=== PATIENT | male | born 1945 | race Caucasian/White ===

== ENCOUNTER 2017-08-03 19:23 | Emergency (ER) | payer OTHER ==
[~2017-08-03] VITALS: Ht 172.7 cm; Wt 78.8 kg
[~2017-08-03 19:23] MED LIST: CYAN10005 PO; DXY100 PO; FLM4 PO; GABA-113 PO; PRED-301 PO; SPIR25TA PO; VTMD PO
[2017-08-03 19:29] VITALS: BP 138/71; PULSE 98; TEMP 37.7; O2SAT 97; Ht 172.7 cm; Wt 78.8 kg
[2017-08-03] MEDS ORDERED: DOXYCYCLINE HYCLATE 100 MG CAP PO STA (19:59)
[2017-08-03] MEDS ORDERED: DOXY100C76 PO (20:03)
--- NOTE | 2017-08-03 20:14 | EMERGENCY ROOM VISIT NOTE ---
History Report prepared by Elias: Anuja Hassan Under the Supervision of: Dr. Gideon Alatorre M.D. First contact with patient: 19:49 Chief Complaint: OTHER COMPLAINT Stated Complaint: LYME DISEASE History of Present Illness The patient is a 72 year old male who presents to the Emergency Room with complaints of persistent fever starting last night. He has a history of lyme disease earlier this year. Last night, his removed a tick off his back. He has been having fever and intermittent diaphoresis and chills. He strongly suspects that this is lyme disease. He denies any rash or abdominal pain. Source of History: patient Onset: last night Position: other (global) Quality: other (fever) Timing: other (persistent) Associated Symptoms: + chills, + diaphoresis, No abdominal pain, No rash Review of Systems See HPI for pertinent positives & negatives. A total of 10 systems reviewed and were otherwise negative. Past Medical & Surgical Medical Problems: (1) Acute urinary retention (2) Rheumatoid arthritis Family History Heart disease Myocardial infarction Social History Smoking Status: Former Smoker Drug Use: none Marital Status: Housing Status: lives with family Occupation Status: retired Current/Historical Medications Scheduled Doxycycline Monohydrate (Monodox), 100 MG PO BID Ergocalciferol (Vitamin D 45719 Unit), 50,000 UNIT PO 2XWK Gabapentin (Neurontin), 600 MG PO DAILY Prednisone (Prednisone), 5 MG PO DAILY Spironolactone (Aldactone), 25 MG PO DAILY Allergies Coded Allergies: No Known Allergies (Verified , 03/25/16) Uncoded Allergies: LATEX-N (Adverse Reaction, Unknown, 01/08/03) Physical Exam Vital Signs Date Time Temp Pulse Resp B/P (MAP) Pulse Ox O2 Delivery O2 Flow Rate FiO2 08/03/17 19:29 37.7 98 20 138/71 97 Room Air Physical Exam GENERAL: Patient is a healthy-appearing well-nourished male HEAD: Normocephalic atraumatic EYES: Ocular movements intact pupils equal and react to light OROPHARYNX mucous membranes are moist no exudates present no erythema or edema present NECK: Supple no nuchal rigidity no evidence of meningitis or encephalitis on exam CHEST: Good equal expansion LUNGS: Clear and equal to auscultation CARDIAC: Normal S1 and S2 ABDOMEN: Soft nontender no guarding BACK: No CVA tenderness EXTREMITIES: No pain upon palpation normal muscle strength in all groups no clubbing cyanosis or edema NEURO: Patient is following commands and answering questions appropriately. Alert and oriented x3 Cranial Nerves 2-12 grossly intact Medical Decision & Procedures Laboratory Results Test 08/03/17 20:10 Lyme Disease IgG Antibody NEG (NEG) Labs reviewed by ED physician. Medications Administered Medications (Trade) Dose Ordered Sig/Mike Route Start Time Stop Time Status Last Admin Dose Admin Doxycycline Hyclate (Vibramycin Cap) 100 mg ONE STAT PO 08/03/17 19:59 08/03/17 20:01 DC 08/03/17 20:07 100 MG ED Course 1953: Past medical records reviewed. The patient was evaluated in room C4. A complete history and physical examination was performed. I discussed results and treatment plan with the patient. He verbalizes agreement and understanding. The patient is ready for discharge. 1958: Doxycycline Hyclate 100 mg PO. Medical Decision Differential diagnosis: Etiologies such as viral syndrome, otitis, pharyngitis, pneumonia, influenza, meningitis, urinary tract infection, sepsis, bacteremia, as well as others were entertained. This is a 72-year-old male who presents emergency department complaining of fever. The patient is convinced he has Lyme disease after a tick was pulled off him yesterday. I recommended to the patient that he receive laboratory work however the patient is adamantly refusing. He is asking for a blood test for Lyme disease and placed on the antibiotic for. I stressed the need to return to the emergency department the patient felt weak or was not improving. I stressed the need for follow-up with the patient's primary care physician. Patient was in agreement with the treatment plan. Medication Reconcilliation Current Medication List: was personally reviewed by me Blood Pressure Screening Patient's blood pressure: Normal blood pressure Blood pressure disposition: Did not require urgent referral Impression Primary Impression: Tick bite of back Additional Impression: Fever Scribe Attestation The scribe's documentation has been prepared under my direction and personally reviewed by me in its entirety. I confirm that the note above accurately reflects all work, treatment, procedures, and medical decision making performed by me. Departure Information Dispostion Home / Self-Care Prescriptions Doxycycline Monohydrate (Monodox) 100 Mg Cap 100 MG PO BID for 14 Days, #28 CAP Prov: Gideon Alatorre MD 08/03/17 Referrals No Doctor, Assigned (PCP) Forms HOME CARE DOCUMENTATION FORM, IMPORTANT VISIT INFORMATION, WORK / SCHOOL INSTRUCTIONS Patient Instructions My [facility] Additional Instructions Follow up with Dr Patel's office Take 600 mg Ibuprofen every 6 hours Take 1000 mg Tylenol every 6 hours You have been examined and treated today on an emergency basis only. This is not a substitute for, or an effort to provide, complete comprehensive medical care. It is impossible to recognize and treat all injuries or illnesses in a single emergency department visit. It is therefore important that you follow up closely with your PCP. Call as soon as possible for an appointment. Thank you for your time and consideration. I look forward to speaking with you again soon. Please don't hesitate to call us if you have any questions. Problem Qualifiers Primary Impression: Tick bite of back Encounter type: initial encounter Qualified Codes: S30.860A - Insect bite ( nonvenomous) of lower back and pelvis, initial encounter; W57.XXXA - Bitten or stung by nonvenomous insect and other nonvenomous arthropods, initial encounter Additional Impression: Fever Fever type: unspecified Qualified Codes: R50.9 - Fever, unspecified
[2017-08-03] MEDS ORDERED: ERGO500037 PO (20:25)
[2017-08-03 21:20] LABS: LYME DISEASE AB IGG NEG (NEG)
[2017-08-03 21:26] LABS: LYME DISEASE AB IGM EQUIVOCAL (NEG)
[2017-08-09 09:49] LABS: 18KDIGG BAND NONREACTIVE (NONREACTIVE); 23KDIGG BAND NONREACTIVE (NONREACTIVE); 23KDIGM BAND REACTIVE (NONREACTIVE); 28KDIGG BAND REACTIVE (NONREACTIVE); 30KDIGG BAND NONREACTIVE (NONREACTIVE); 39KDIGG BAND NONREACTIVE (NONREACTIVE); 39KDIGM BAND NONREACTIVE (NONREACTIVE); 41KDIGG BAND REACTIVE (NONREACTIVE); 41KDIGM BAND NONREACTIVE (NONREACTIVE); 45KDIGG BAND NONREACTIVE (NONREACTIVE); 58KDIGG BAND REACTIVE (NONREACTIVE); 66KDIGG BAND REACTIVE (NONREACTIVE); 93KDIGG BAND NONREACTIVE (NONREACTIVE)
== END 2017-08-03 21:00 | disposition home or self-care (01) ==
LOC: C.EDB 19:24 → C.EDC 21:00
DX: R50.9 Fever, unspecified (principal); S30.860A Insect bite (nonvenomous) of lower back and pelvis, initial encounter; W57.XXXA Bitten or stung by nonvenomous insect and other nonvenomous arthropods, initial encounter; Y92.9 Unspecified place or not applicable; M06.9 Rheumatoid arthritis, unspecified; Z86.19 Personal history of other infectious and parasitic diseases; Z82.49 Family history of ischemic heart disease and other diseases of the circulatory system; Z87.891 Personal history of nicotine dependence; Z79.52 Long term (current) use of systemic steroids; Z79.899 Other long term (current) drug therapy

== ENCOUNTER 2022-12-30 18:57 | Inpatient (IN) ==
--- NOTE | 2022-12-30 20:26 | XRay Report ---
SINGLE VIEW CHEST CLINICAL HISTORY: Atypical chest pain. Cough and dyspnea FINDINGS: An AP, portable, upright chest radiograph is compared to study dated 09/04/2021 and correla erik with chest CT dated 03/25/2016. The heart is enlarged note atherosclerotic calcification of the th oracic aorta. The pulmonary vasculature is noncongested. Pericardial calcification is similar to prev ious. Chronic interstitial thickening is unchanged. There is bibasilar scarring/atelectasis. There ar e patchy airspace opacities in the right upper lobe and in the left mid to lower lung. Suspect trace pleural effusions. No pneumothorax is seen. The skeletal structures are osteopenic. There is chronic deformity of the right-sided ribs. IMPRESSION: 1. Cardiomegaly without radiographic evidence of congestive failure. 2. There are patchy airspace opacities in the right upper lobe and in the left mid to lower lung. Cor relate clinically for evidence of pneumonia/aspiration pneumonitis. Radiographic follow-up to resolut ion is recommended. 3. Question small pleural effusions. ACT 112: Negative or not required by law. Electronically signed by: Sheng Mckoy M.D. 12/30/2022 8:25 PM
[2022-12-30 20:45] LABS: Basophils # (auto) 0.03 K/uL (0-0.2); Basophils % (auto) 0.2 %; Eosinophils # (auto) 0.01 K/uL (0-0.50); Eosinophils % (auto) 0.1 %; Hematocrit (blood only) 32.2 % (42.0-52.0); Hemoglobin 11.1 g/dl (14.0-18.0); Immature Granulocytes # (auto) 0.15 K/uL (0.01-0.20); Lymphocytes # (auto) 0.94 K/uL (1.2-3.4); Mean Corpuscular Hemoglobin 35.5 pg (25.0-34.0); Mean Corpuscular Hgb Conc 34.5 g/dL (32.0-36.0); Mean Corpuscular Volume 102.9 fL (80.0-100.0); Mean Platelet Volume 11.2 fL (9.4-12.4); Monocytes # (auto) 1.23 K/uL (0.11-0.59); Monocytes % (auto) 7.8 %; Neutrophils # (auto) 13.31 K/uL (1.40-6.50); Neutrophils % (auto) 84.9 %; Platelet Count 269 K/uL (130-400); RDW Coefficient of Variation 14.6 % (11.5-14.5); RDW Standard Deviation 54.9 fL (36.4-46.3); Red Blood Count 3.13 M/uL (4.70-6.10); White Blood Count 15.67 K/ul (4.8-10.8)
[2022-12-30 21:07] LABS: Albumin Globulin Ratio 1.2 (0.9-2); Albumin Level 3.6 gm/dl (3.4-5.0); BUN Creatinine Ratio 22.9 (10-20); Bilirubin,Total 1.4 mg/dl (0.2-1.0); Est GFR (African American) 77.9 ml/min; Est GFR (Non-African American) 67.2 ml/min; Potassium 4.3 mmol/L (3.5-5.1); Total Protein 6.6 gm/dl (6.0-8.3)
[2022-12-30 21:12] LABS: Troponin I High Sensitivity 10.5 pg/ml (0-20)
[2022-12-30 21:18] LABS: Influenza A virus by PCR Negative (Neg); Influenza B virus by PCR Negative (Neg); RSV by PCR Negative (Neg); SARS CoV2 RNA(COVID-19) Ceph NEGATIVE (Negative)
[2022-12-30 21:21] LABS: INR 1.4 (0.9-1.1); Partial Thromboplastin Ratio 1.4; Partial Thromboplastin Time 39.6 Seconds (21.0-31.0); Prothrombin Time 14.6 Seconds (9.0-12.0)
[2022-12-30] MEDS ORDERED: SODIUM CHLORIDE 0.9% 1000ML 1,000 ML IV STA (23:17)
[2022-12-30] MEDS ORDERED: PIPERACILLIN/TAZOBACTAM 4.5 GM/120 ML BAG IV ONE (23:17)
[2022-12-30] MEDS ORDERED: SODIUM CHLORIDE 0.9% 250 ML IV ONE (23:17)
--- NOTE | 2022-12-30 23:58 | CT Scan Report ---
Exam(s): CT CHEST Without Contrast EXAM: CT Chest Without Intravenous Contrast CLINICAL HISTORY: Reason for exam: PNA, aspiration, jaundice appearing. TECHNIQUE: Axial computed tomography images of the chest without intravenous contrast. Automated exposure control was utilized for the study. A dose lowering technique was utilized adhering to the principles of ALARA. COMPARISON: 03/25/16 FINDINGS: Lungs: There are diffuse patchy areas of airways impaction and consolidation concerning for multifocal pneumonia, possibly atypical area. Pleural space: There are right-sided pleural plaques which are stable and suggestive of asbestos-related lung disease. No pneumothorax. No significant effusion. Heart: There is dense pericardial calcification, unchanged since at least 2016. No significant coronary artery calcifications. Bones/joints: Unremarkable. No acute fracture. No dislocation. Soft tissues: Unremarkable. Vasculature: Unremarkable. No thoracic aortic aneurysm. Lymph nodes: Unremarkable. No enlarged lymph nodes. Spleen: Multiple splenic calcifications most likely reflect granulomas. Intraperitoneal space: There is layering fluid within the left fissure. IMPRESSION: 1. Extensive areas of airways impaction and consolidation which may reflect infection. 2. Changes of asbestos-related lung disease. 3. Stable pericardial calcification. Electronically signed by: Brent Scott MD 12/30/22 23:57 PM
--- NOTE | 2022-12-31 00:30 | Emergency Department Note ---
Impression & Plan Aspiration into airway, Shortness of breath, Pneumonia, Vomiting ED Provider Note CHIEF COMPLAINT: SOB, vomiting HISTORY OF PRESENT ILLNESS: This 77-year-old male with past medical history of COPD, SVT, rheumatoid arthritis, tachybradycardia syndrome patient presents to the emergency department with complaints of shortness of breath and vomiting. Patient states he has been sick for the last several days and believes it is a CHF exacerbation. He can feel fluid in his lungs. He does admit to a moist cough. He denies any fevers. He has not had any blood in his emesis. He denies diarrhea. REVIEW OF SYSTEMS: A review of systems was performed with positives and pertinent negatives listed in the history of present illness. 10 systems were reviewed and are otherwise negative. ALLERGIES: see below MEDICATIONS: see below PMH: see below SOCIAL HISTORY: see below DDx: Reactive airway disease, pneumonia, pneumothorax, COPD, CHF, aspiration, cardiac ischemia, pulmonary embolism, musculoskeletal, gastrointestinal, as well as other pathologies. PHYSICAL EXAM: Vital signs reviewed. General: Chronically ill-appearing 77-year-old male, in some respiratory discomfort. Placed on nasal cannula oxygen. HEENT: No scleral icterus, PERRLA, neck supple. Atraumatic. Cardiovascular: Regular rate and rhythm, no extra sounds. Pulmonary: Clear to auscultation bilaterally, normal work of breathing. Abdomen: Soft, nontender, nondistended, positive bowel sounds. Musculoskeletal: Atraumatic, bilateral lower extremity peripheral edema. Neurologic: Patient awake alert and oriented x 3, speech is clear Skin: Warm, dry, no rash EMERGENCY DEPARTMENT COURSE/MDM: This patient was evaluated and appeared to be in no significant distress. He was noted to be in some respiratory discomfort but stable. He was placed on nasal cannula oxygen. Chest x-ray reveals patchy bilateral infiltrates COVID no CHF. Patient's vital signs have remained stable during his stay in the emergency department. Laboratory work reveals a leukocytosis, mild hyponatremia. Troponin is normal and BNP is slightly elevated. Blood cultures were obtained and the patient was medicated with IV Zosyn due to the likelihood of aspiration. CT imaging of the chest was performed and reveals extensive areas of impaction and consolidation, along with changes of asbestos related lung disease. Patient's case was discussed with the hospitalist service who will evaluate the patient for admission and further management. MONITORING: An order for cardiac monitoring was placed and the patient is noted to be in a sinus rhythm at 88 beats per minute. RADIOLOGY: Chest x-ray to my interpretation reveals faint patchy airspace opacities, no evidence of congestive heart failure. Otherwise defer to radiology. Chest CT per radiology IMPRESSION: 1. Extensive areas of airways impaction and consolidation which may reflect infection. 2. Changes of asbestos-related lung disease. 3. Stable pericardial calcification. EKG: To my interpretation reveals a sinus rhythm with PACs at 81 bpm. QTc is 446. Normal ST segments. DISPOSITION: Admission Past Med/Surg History Medical History (Updated 01/04/23 @ 09:05 by Chanelle Maddox MD) Ascending aorta enlargement BPH (benign prostatic hyperplasia) COPD (chronic obstructive pulmonary disease) Hx of supraventricular tachycardia Rheumatoid arthritis Surgical History H/O inguinal hernia repair History of thoracotomy Family History Father Heart disease Social History Smoking Status: Former smoker Tobacco Type: Smokeless Tobacco (Dip or Chew) Cigarettes Per Day: 1 PPD; Smoking End Date: 40 years ago; Second Hand Exposure: No; Do You Dip or Chew Tobacco: No; Tobacco Cessation Education Requested by Patient: No Hx Alcohol Use: No Hx Substance Use: No Preferred Language: Faroese Communication Ability: Effective Pharmacy Billing Adjudicator Required: No Beliefs That Will Affect Care: None Current Living Situation: Alone Current Living Situation Comment: Lives alone, son lives in close proximity Other Information That Helps Us Care for You: No Feels Safe at Home: Yes Safety Concerns: Feels Safe At This Time Assistive Devices: Cane, Glasses and Walker Allergies Allergies Allergy/AdvReac Type Severity Reaction Status Date / Time No Known Allergies Allergy Verified 12/31/22 00:31 Home Meds Home Medications Medication Instructions Recorded Confirmed finasteride 5 mg tablet 5 mg PO DAILY 04/25/20 12/31/22 gabapentin 300 mg capsule 300 mg PO BID 04/25/20 12/31/22 prednisone 5 mg tablet 5 mg PO DAILY 04/25/20 12/31/22 spironolactone 25 mg tablet 25 mg PO DAILY 04/25/20 12/31/22 cholecalciferol (vitamin D3) 25 50 mcg PO DAILY 07/30/20 12/31/22 mcg (1,000 unit) tablet (Vitamin D3) apixaban 5 mg tablet 5 mg PO BID 12/31/22 12/31/22 fluticasone 250 mcg-salmeterol 50 1 inh inhalation BID 12/31/22 12/31/22 mcg/dose blistr powdr for inhalation (Advair Diskus) metoprolol succinate 50 mg 25 mg PO BID 12/31/22 12/31/22 tablet,extended release 24 hr pantoprazole 40 mg tablet,delayed 40 mg PO DAILY 12/31/22 12/31/22 release Results & Data (ED) Vital Signs Vital Signs - 24 hr 12/30/22 19:00 12/30/22 22:00 12/30/22 22:00 Temperature 36.8 C Temperature Source Temporal Artery Scan Pulse Rate 99 H Pulse Rate [Finger] 78 Pulse Rate from SpO2 Sensor Pulse Rhythm [Finger] Regular Pulse Strength [Finger] Normal Respiratory Rate 24 22 Respiratory Effort / Characteristics Spontaneous Labored Non-Labored Spontaneous Respiratory Depth Normal Normal Respiratory Pattern Regular Regular Blood Pressure 109/70 Blood Pressure [Left Arm] 120/77 Blood Pressure Mean 83 Blood Pressure Mean [Left Arm] 91 Pulse Oximetry 95 98 98 Oxygen Delivery Method Room Air Room Air Room Air Sepsis Recent Fever Within 48 Hours No Sepsis New/Unexplained Change in Mental Status No Sepsis Action Taken by Nursing No Action Required 12/30/22 21:58 12/30/22 21:59 12/30/22 22:00 Temperature Temperature Source Pulse Rate 88 80 Pulse Rate [Finger] Pulse Rate from SpO2 Sensor 96 H Pulse Rhythm [Finger] Pulse Strength [Finger] Respiratory Rate 24 Respiratory Effort / Characteristics Respiratory Depth Respiratory Pattern Blood Pressure 120/77 Blood Pressure [Left Arm] Blood Pressure Mean 91 Blood Pressure Mean [Left Arm] Pulse Oximetry 91 Oxygen Delivery Method Sepsis Recent Fever Within 48 Hours Sepsis New/Unexplained Change in Mental Status Sepsis Action Taken by Nursing 12/30/22 22:00 12/30/22 22:30 12/30/22 22:30 Temperature Temperature Source Pulse Rate 79 79 Pulse Rate [Finger] Pulse Rate from SpO2 Sensor 90 79 Pulse Rhythm [Finger] Pulse Strength [Finger] Respiratory Rate 24 29 H Respiratory Effort / Characteristics Respiratory Depth Respiratory Pattern Blood Pressure 128/89 Blood Pressure [Left Arm] Blood Pressure Mean 102 Blood Pressure Mean [Left Arm] Pulse Oximetry 98 98 Oxygen Delivery Method Sepsis Recent Fever Within 48 Hours Sepsis New/Unexplained Change in Mental Status Sepsis Action Taken by Nursing 12/30/22 23:00 12/30/22 23:00 Temperature Temperature Source Pulse Rate 77 Pulse Rate [Finger] Pulse Rate from SpO2 Sensor 78 Pulse Rhythm [Finger] Pulse Strength [Finger] Respiratory Rate 20 Respiratory Effort / Characteristics Respiratory Depth Respiratory Pattern Blood Pressure 120/80 Blood Pressure [Left Arm] Blood Pressure Mean 93 Blood Pressure Mean [Left Arm] Pulse Oximetry 96 Oxygen Delivery Method Sepsis Recent Fever Within 48 Hours Sepsis New/Unexplained Change in Mental Status Sepsis Action Taken by Residential Medications Current Medication List: was personally reviewed by me Laboratory Data Attestation: I reviewed the patient's lab results. 12/30/22 20:27 12/30/22 20:27 Lab Results 12/30/22 12/30/22 12/30/22 Range/Units 00:00 20:27 20:27 WBC 15.67 H (4.8-10.8) K/ul RBC 3.13 L (4.70-6.10) M/uL Hgb 11.1 L (14.0-18.0) g/dl Hct 32.2 L (42.0-52.0) % MCV 102.9 H (80.0-100.0) fL MCH 35.5 H (25.0-34.0) pg MCHC 34.5 (32.0-36.0) g/dL RDW Std Deviation 54.9 H (36.4-46.3) fL RDW Coeff of Roxanna 14.6 H (11.5-14.5) % Plt Count 269 (130-400) K/uL MPV 11.2 (9.4-12.4) fL Immature Gran % (Auto) 1.0 % Neut % (Auto) 84.9 % Lymph % (Auto) 6.0 % [place] % (Auto) 7.8 % Eos % (Auto) 0.1 % Baso % (Auto) 0.2 % Neut # (Auto) 13.31 H (1.40-6.50) K/uL Lymph # (Auto) 0.94 L (1.2-3.4) K/uL [place] # (Auto) 1.23 H (0.11-0.59) K/uL Eos # (Auto) 0.01 (0-0.50) K/uL Baso # (Auto) 0.03 (0-0.2) K/uL Immature Gran # (Auto) 0.15 (0.01-0.20) K/uL PT 14.6 H (9.0-12.0) Seconds INR 1.4 H (0.9-1.1) APTT 39.6 H (21.0-31.0) Seconds PTT Ratio 1.4 Sodium (136-145) mmol/L Potassium (3.5-5.1) mmol/L Chloride (98-107) mmol/L Carbon Dioxide (21-32) mmol/L Anion Gap (3-11) BUN (6-23) mg/dl Creatinine (0.6-1.4) mg/dl Est Cr Clr Drug Dosing ml/min Est GFR ( Amer) ml/min Est GFR (Non-Af Amer) ml/min BUN/Creatinine Ratio (10-20) Glucose (70-99(Fasting)) mg/dl Estimat Average Glucose 137 mg/dl Hemoglobin A1c 6.4 H (4.5-5.6) % Calcium (8.6-10.3) mg/dl Magnesium (1.7-2.4) mg/dl Total Bilirubin (0.2-1.0) mg/dl AST (13-39) U/L ALT (7-52) U/L Alkaline Phosphatase (34-104) U/L Troponin I High Sens (0-20) pg/ml B-Natriuretic Peptide (0-100) pg/ml Total Protein (6.0-8.3) gm/dl Albumin (3.4-5.0) gm/dl Globulin (2.5-4.0) gm/dl Albumin/Globulin Ratio (0.9-2) SARS-CoV-2 (PCR) (Negative) Influenza Type A (PCR) (Neg) Influenza Type B (PCR) (Neg) RSV (RT-PCR) (Neg) 12/30/22 12/30/22 12/30/22 Range/Units 20:27 20:27 20:27 WBC (4.8-10.8) K/ul RBC (4.70-6.10) M/uL Hgb (14.0-18.0) g/dl Hct (42.0-52.0) % MCV (80.0-100.0) fL MCH (25.0-34.0) pg MCHC (32.0-36.0) g/dL RDW Std Deviation (36.4-46.3) fL RDW Coeff of Roxanna (11.5-14.5) % Plt Count (130-400) K/uL MPV (9.4-12.4) fL Immature Gran % (Auto) % Neut % (Auto) % Lymph % (Auto) % [place] % (Auto) % Eos % (Auto) % Baso % (Auto) % Neut # (Auto) (1.40-6.50) K/uL Lymph # (Auto) (1.2-3.4) K/uL [place] # (Auto) (0.11-0.59) K/uL Eos # (Auto) (0-0.50) K/uL Baso # (Auto) (0-0.2) K/uL Immature Gran # (Auto) (0.01-0.20) K/uL PT (9.0-12.0) Seconds INR (0.9-1.1) APTT (21.0-31.0) Seconds PTT Ratio Sodium 131 L (136-145) mmol/L Potassium 4.3 (3.5-5.1) mmol/L Chloride 99 (98-107) mmol/L Carbon Dioxide 22 (21-32) mmol/L Anion Gap 10 (3-11) BUN 24 H (6-23) mg/dl Creatinine 1.05 (0.6-1.4) mg/dl Est Cr Clr Drug Dosing 57.0 ml/min Est GFR ( Amer) 77.9 ml/min Est GFR (Non-Af Amer) 67.2 ml/min BUN/Creatinine Ratio 22.9 H (10-20) Glucose 168 H (70-99(Fasting)) mg/dl Estimat Average Glucose mg/dl Hemoglobin A1c (4.5-5.6) % Calcium 9.0 (8.6-10.3) mg/dl Magnesium (1.7-2.4) mg/dl Total Bilirubin 1.4 H (0.2-1.0) mg/dl AST 34 (13-39) U/L ALT 36 (7-52) U/L Alkaline Phosphatase 59 (34-104) U/L Troponin I High Sens 10.5 (0-20) pg/ml B-Natriuretic Peptide 236 H (0-100) pg/ml Total Protein 6.6 (6.0-8.3) gm/dl Albumin 3.6 (3.4-5.0) gm/dl Globulin 3.0 (2.5-4.0) gm/dl Albumin/Globulin Ratio 1.2 (0.9-2) SARS-CoV-2 (PCR) NEGATIVE (Negative) Influenza Type A (PCR) Negative (Neg) Influenza Type B (PCR) Negative (Neg) RSV (RT-PCR) Negative (Neg) 12/30/22 Range/Units 23:54 WBC (4.8-10.8) K/ul RBC (4.70-6.10) M/uL Hgb (14.0-18.0) g/dl Hct (42.0-52.0) % MCV (80.0-100.0) fL MCH (25.0-34.0) pg MCHC (32.0-36.0) g/dL RDW Std Deviation (36.4-46.3) fL RDW Coeff of Roxanna (11.5-14.5) % Plt Count (130-400) K/uL MPV (9.4-12.4) fL Immature Gran % (Auto) % Neut % (Auto) % Lymph % (Auto) % [place] % (Auto) % Eos % (Auto) % Baso % (Auto) % Neut # (Auto) (1.40-6.50) K/uL Lymph # (Auto) (1.2-3.4) K/uL [place] # (Auto) (0.11-0.59) K/uL Eos # (Auto) (0-0.50) K/uL Baso # (Auto) (0-0.2) K/uL Immature Gran # (Auto) (0.01-0.20) K/uL PT (9.0-12.0) Seconds INR (0.9-1.1) APTT (21.0-31.0) Seconds PTT Ratio Sodium (136-145) mmol/L Potassium (3.5-5.1) mmol/L Chloride (98-107) mmol/L Carbon Dioxide (21-32) mmol/L Anion Gap (3-11) BUN (6-23) mg/dl Creatinine (0.6-1.4) mg/dl Est Cr Clr Drug Dosing ml/min Est GFR ( Amer) ml/min Est GFR (Non-Af Amer) ml/min BUN/Creatinine Ratio (10-20) Glucose (70-99(Fasting)) mg/dl Estimat Average Glucose mg/dl Hemoglobin A1c (4.5-5.6) % Calcium (8.6-10.3) mg/dl Magnesium 2.3 (1.7-2.4) mg/dl Total Bilirubin (0.2-1.0) mg/dl AST (13-39) U/L ALT (7-52) U/L Alkaline Phosphatase (34-104) U/L Troponin I High Sens 9.5 (0-20) pg/ml B-Natriuretic Peptide (0-100) pg/ml Total Protein (6.0-8.3) gm/dl Albumin (3.4-5.0) gm/dl Globulin (2.5-4.0) gm/dl Albumin/Globulin Ratio (0.9-2) SARS-CoV-2 (PCR) (Negative) Influenza Type A (PCR) (Neg) Influenza Type B (PCR) (Neg) RSV (RT-PCR) (Neg) Administered Medications Acetaminophen (Acetaminophen 325 Mg Tab) 650 mg PO Q4H PRN PRN Reason: Pain or Fever Stop: 01/30/23 02:41 Last Admin: 01/03/23 20:51 Dose: 650 mg Documented By: Admin: 01/02/23 22:24 Dose: 650 mg Documented By: Admin: 01/01/23 20:05 Dose: 650 mg Documented By: Admin: 01/01/23 03:19 Dose: 650 mg Documented By: STAN Apixaban (Apixaban 5 Mg Tablet) 5 mg PO BID STEPHEN Stop: 01/30/23 08:59 Last Admin: 01/03/23 20:47 Dose: 5 mg Documented By: Admin: 01/03/23 08:45 Dose: 5 mg Documented By: Admin: 01/02/23 21:04 Dose: 5 mg Documented By: Admin: 01/02/23 08:45 Dose: 5 mg Documented By: Admin: 01/01/23 20:06 Dose: 5 mg Documented By: Admin: 01/01/23 08:14 Dose: 5 mg Documented By: [id number] Admin: 12/31/22 21:23 Dose: 5 mg Documented By: Admin: 12/31/22 08:11 Dose: 5 mg Documented By: [id number] Doxycycline Hyclate (Doxycycline Hyclate 100 Mg Cap) 100 mg PO BID STEPHEN Stop: 01/07/23 20:59 Last Admin: 01/03/23 20:47 Dose: 100 mg Documented By: Admin: 01/03/23 08:46 Dose: 100 mg Documented By: Admin: 01/02/23 21:04 Dose: 100 mg Documented By: Admin: 01/02/23 08:45 Dose: 100 mg Documented By: Admin: 01/01/23 20:05 Dose: 100 mg Documented By: Admin: 01/01/23 08:14 Dose: 100 mg Documented By: [id number] Admin: 12/31/22 21:24 Dose: 100 mg Documented By: STAN Finasteride (Finasteride 5 Mg Tab) 5 mg PO DAILY STEPHEN Stop: 01/30/23 08:59 Last Admin: 01/03/23 08:45 Dose: 5 mg Documented By: Admin: 01/02/23 08:46 Dose: 5 mg Documented By: Admin: 01/01/23 08:14 Dose: 5 mg Documented By: [id number] Admin: 12/31/22 08:10 Dose: 5 mg Documented By: [id number] Fluticasone/Vilanterol (Fluticasone/Vilanterol 100/25mcg 14 Puffs/Inhaler) 1 puffs INH DAILY STEPHEN Stop: 01/30/23 08:59 Last Admin: 01/03/23 08:46 Dose: 1 puffs Documented By: Admin: 01/02/23 08:46 Dose: 1 puffs Documented By: Admin: 01/01/23 08:15 Dose: 1 puffs Documented By: [id number] Admin: 12/31/22 08:10 Dose: 1 puffs Documented By: [id number] Gabapentin (Gabapentin 300 Mg Cap) 300 mg PO BID STEPHEN Stop: 01/30/23 08:59 Last Admin: 01/03/23 20:47 Dose: 300 mg Documented By: Admin: 01/03/23 08:45 Dose: 300 mg Documented By: Admin: 01/02/23 21:05 Dose: 300 mg Documented By: Admin: 01/02/23 08:46 Dose: 300 mg Documented By: Admin: 01/01/23 20:06 Dose: 300 mg Documented By: Admin: 01/01/23 08:14 Dose: 300 mg Documented By: [id number] Admin: 12/31/22 21:23 Dose: 300 mg Documented By: Admin: 12/31/22 08:10 Dose: 300 mg Documented By: [id number] Guaifenesin (Guaifenesin Sugar Free 200 Mg/10 Ml Udc) 200 mg PO Q6H PRN PRN Reason: Cough Stop: 01/30/23 22:50 Last Admin: 01/01/23 20:05 Dose: 200 mg Documented By: Admin: 12/31/22 23:18 Dose: 200 mg Documented By: STAN Lactobacillus Acidophilus (Advanced Probiotic 1250 Mg Capsule) 2 cap PO DAILY STEPHEN Stop: 02/01/23 08:59 Last Admin: 01/03/23 08:45 Dose: 2 cap Documented By: Admin: 01/02/23 08:46 Dose: 2 cap Documented By: MANNY Levofloxacin (Levofloxacin 750 Mg Tab) 750 mg PO Q24H STEPHEN Stop: 01/10/23 11:59 Last Admin: 01/03/23 12:26 Dose: 750 mg Documented By: NANCIE Metoprolol Succinate (Metoprolol Succ 25mg Ext Rel Tab) 25 mg PO BID STEPHEN Stop: 01/30/23 08:59 Last Admin: 01/03/23 20:47 Dose: 25 mg Documented By: Admin: 01/03/23 08:45 Dose: 25 mg Documented By: Admin: 01/02/23 21:04 Dose: 25 mg Documented By: Admin: 01/02/23 08:46 Dose: 25 mg Documented By: Admin: 01/01/23 20:06 Dose: 25 mg Documented By: Admin: 01/01/23 08:14 Dose: 25 mg Documented By: [id number] Admin: 12/31/22 21:23 Dose: 25 mg Documented By: Admin: 12/31/22 08:10 Dose: 25 mg Documented By: [id number] Pantoprazole Sodium (Pantoprazole 40 Mg Tab) 40 mg PO DAILY STEPHEN Stop: 01/30/23 08:59 Last Admin: 01/03/23 08:45 Dose: 40 mg Documented By: Admin: 01/02/23 08:46 Dose: 40 mg Documented By: Admin: 01/01/23 08:15 Dose: 40 mg Documented By: [id number] Admin: 12/31/22 08:10 Dose: 40 mg Documented By: [id number] Prednisone (Prednisone 20 Mg Tab) 40 mg PO DAILY STEPHEN Stop: 01/05/23 08:59 Last Admin: 01/03/23 08:45 Dose: 40 mg Documented By: Admin: 01/02/23 08:46 Dose: 40 mg Documented By: Admin: 01/01/23 08:15 Dose: 40 mg Documented By: [id number] Spironolactone (Spironolactone 25 Mg Tab) 25 mg PO DAILY STEPHEN Stop: 01/30/23 08:59 Last Admin: 01/03/23 08:45 Dose: 25 mg Documented By: Admin: 12/31/22 08:11 Dose: 25 mg Documented By: [id number] Discontinued Medications Albuterol (Albut/Ipratrop 3mg/0.5mg Neb 3 Ml Vial) 3 ml NEB NOW STA; Protocol Stop: 12/31/22 01:01 Last Admin: 12/31/22 01:25 Dose: 3 ml Documented By: ALYSIA Furosemide (Furosemide 40 Mg/4 Ml Vial) 40 mg IV ONE ONE Stop: 01/03/23 10:39 Last Admin: 01/03/23 10:58 Dose: 40 mg Documented By: NANCIE Sodium Chloride (Nss) 250 mls @ 999 mls/hr IV .Q16M ONE Stop: 12/30/22 23:32 Last Infusion: 12/31/22 00:00 Dose: 0 mls/hr Documented By: Admin: 12/30/22 23:28 Dose: 999 mls/hr Documented By: ALYSIA Sodium Chloride (Nss 1000ml) 1,000 mls @ 60 mls/hr IV .[id number] STA Stop: 12/31/22 15:56 Last Infusion: 12/31/22 15:51 Dose: 0 mls/hr Documented By: [id number] Infusion: 12/31/22 11:20 Dose: 0 mls/hr Documented By: [id number] Infusion: 12/31/22 01:26 Dose: 60 mls/hr Documented By: Admin: 12/30/22 23:27 Dose: 130 mls/hr Documented By: ALYSIA Piperacillin Sod/Tazobactam Sod (Zosyn) 4.5 gm in 120 mls @ 240 mls/hr IV NOW ONE Stop: 12/30/22 23:46 Last Infusion: 12/31/22 01:20 Dose: 0 mls/hr Documented By: Admin: 12/31/22 00:03 Dose: 240 mls/hr Documented By: ALYSIA Doxycycline Hyclate 100 mg/ (Dextrose) 110 mls @ 50 mls/hr IV NOW STA Stop: 12/31/22 03:12 Last Infusion: 12/31/22 03:46 Dose: 0 mls/hr Documented By: Admin: 12/31/22 01:28 Dose: 50 mls/hr Documented By: ALYSIA Cefepime HCl 2,000 mg/ Syringe 20 mls @ 5 mls/min IV Q8H STEPHEN; Protocol Stop: 01/07/23 05:59 Last Admin: 01/03/23 05:50 Dose: 5 mls/min Documented By: Admin: 01/02/23 21:07 Dose: 5 mls/min Documented By: Admin: 01/02/23 14:48 Dose: 5 mls/min Documented By: Admin: 01/02/23 06:12 Dose: 5 mls/min Documented By: Admin: 01/01/23 20:05 Dose: 5 mls/min Documented By: Admin: 01/01/23 13:55 Dose: 5 mls/min Documented By: [id number] Admin: 01/01/23 05:41 Dose: 5 mls/min Documented By: Admin: 12/31/22 21:24 Dose: 5 mls/min Documented By: Admin: 12/31/22 13:17 Dose: 5 mls/min Documented By: [id number] Admin: 12/31/22 05:02 Dose: 5 mls/min Documented By: ARNALDO Ipratropium [place] (Ipratropium [place] Neb Soln 0.02% 2.5 Ml Vial) 0.5 mg INH Q6R STEPHEN Stop: 01/30/23 06:59 Last Admin: 12/31/22 19:47 Dose: 0.5 mg Documented By: Admin: 12/31/22 12:48 Dose: 0.5 mg Documented By: Admin: 12/31/22 07:42 Dose: 0.5 mg Documented By: Ipratropium [place] (Ipratropium [place] Neb Soln 0.02% 2.5 Ml Vial) 0.5 mg INH QIDR STEPHEN Stop: 01/31/23 06:59 Last Admin: 01/02/23 08:26 Dose: 0.5 mg Documented By: Admin: 01/01/23 19:10 Dose: 0.5 mg Documented By: Admin: 01/01/23 15:16 Dose: 0.5 mg Documented By: Admin: 01/01/23 10:48 Dose: 0.5 mg Documented By: [facility] Admin: 01/01/23 07:09 Dose: 0.5 mg Documented By: Levalbuterol HCl (Levalbuterol 1.25mg/0.5ml Neb) 1.25 mg INH Q6R STEPHEN Stop: 01/30/23 06:59 Last Admin: 12/31/22 19:47 Dose: 1.25 mg Documented By: Admin: 12/31/22 12:48 Dose: 1.25 mg Documented By: Admin: 12/31/22 07:42 Dose: 1.25 mg Documented By: Levalbuterol HCl (Levalbuterol 1.25mg/0.5ml Neb) 1.25 mg INH QIDR STEPHEN Stop: 01/31/23 06:59 Last Admin: 01/02/23 08:26 Dose: 1.25 mg Documented By: Admin: 01/01/23 19:10 Dose: 1.25 mg Documented By: Admin: 01/01/23 15:16 Dose: 1.25 mg Documented By: Admin: 01/01/23 10:48 Dose: 1.25 mg Documented By: [facility] Admin: 01/01/23 07:08 Dose: 1.25 mg Documented By: H Methylprednisolone (Methylprednisolone 40 Mg/Ml Vial) 20 mg IV NOW STA Stop: 12/31/22 01:02 Last Admin: 12/31/22 01:27 Dose: 20 mg Documented By: ALYSIA Sodium Chloride (Sodium Chlor 7% 4 Ml Neb) 4 ml NEB BIDR STEPHEN Stop: 01/30/23 08:29 Last Admin: 01/02/23 08:25 Dose: 4 ml Documented By: Admin: 01/01/23 19:10 Dose: 4 ml Documented By: Admin: 01/01/23 07:08 Dose: 4 ml Documented By: Admin: 12/31/22 19:47 Dose: 4 ml Documented By: Admin: 12/31/22 11:02 Dose: 4 ml Documented By: AB Imaging Data Radiologist's Impression: Chest X-Ray 12/30/22 19:03 SINGLE VIEW CHEST CLINICAL HISTORY: Atypical chest pain. Cough and dyspnea FINDINGS: An AP, portable, upright chest radiograph is compared to study dated 09/04/2021 and correlated with chest CT dated 03/25/2016. The heart is enlarged note atherosclerotic calcification of the thoracic aorta. The pulmonary va sculature is noncongested. Pericardial calcification is similar to previous. Chronic interstitial thickening is unchanged. There is bibasilar scarring/atelectasis. There are patchy airspace opacities in the right upper lobe and in the left mid to lower lung. Suspect trace pleural effusions. No pneumothorax is seen. The skeletal structures are osteopenic. There is chronic deformity of the right-sided ribs. IMPRESSION: 1. Cardiomegaly without radiographic evidence of congestive failure. 2. There are patchy airspace opacities in the right upper lobe and in the left mid to lower lung. Correlate clinically for evidence of pneumonia/aspiration pneumonitis. Radiographic follow-up to resolution is recommended. 3. Question small pleural effusions. ACT 112: Negative or not required by law. Electronically signed by: Sheng Mckoy M.D. 12/30/2022 8:[address] 12/30/22 23:17 Exam(s): CT CHEST Without Contrast EXAM: CT Chest Without Intravenous Contrast CLINICAL HISTORY: Reason for exam: PNA, aspiration, jaundice appearing. TECHNIQUE: Axial computed tomography images of the chest without intravenous contrast. Automated exposure control was utilized for the study. A dose lowering technique was utilized adhering to the principles of ALARA. COMPARISON: 03/25/16 FINDINGS: Lungs: There are diffuse patchy areas of airways impaction and consolidation concerning for multifocal pneumonia, possibly atypical area. Pleural space: There are right-sided pleural plaques which are stable and suggestive of asbestos-related lung disease. No pneumothorax. No significant effusion. Heart: There is dense pericardial calcification, unchanged since at least 2016. No significant coronary artery calcifications. Bones/joints: Unremarkable. No acute fracture. No dislocation. Soft tissues: Unremarkable. Vasculature: Unremarkable. No thoracic aortic aneurysm. Lymph nodes: Unremarkable. No enlarged lymph nodes. Spleen: Multiple splenic calcifications most likely reflect granulomas. Intraperitoneal space: There is layering fluid within the left fissure. IMPRESSION: 1. Extensive areas of airways impaction and consolidation which may reflect infection. 2. Changes of asbestos-related lung disease. 3. Stable pericardial calcification. Electronically signed by: Brent Scott MD 12/30/22 23:57 PM Discharge Plan Visit Data Chief Complaint: Cardiac Assessment Stated Complaint: CONJESTIVE HEART FAILURE,PUKING, PAIN ED Provider: Chanelle Maddox Discharge Problem: Aspiration into airway, Shortness of breath, Pneumonia, Vomiting Patient Disposition: Admitted As Inpatient Discharge Instructions Interventions: ED Discharge Assessment Last Done: 12/31/22 01:36 Aspiration into airway Qualifiers: Encounter type: initial encounter Qualified Code(s): T17.908A - Unspecified foreign body in respiratory tract, part unspecified causing other injury, initial encounter Pneumonia Qualifiers: Pneumonia type: aspiration pneumonia Vomiting Qualifiers: Vomiting type: unspecified Nausea presence: with nausea Qualified Code(s): R11.2 - Nausea with vomiting, unspecified
[2022-12-31 00:41] LABS: Troponin I High Sensitivity 9.5 pg/ml (0-20)
[2022-12-31] MEDS ORDERED: methylPREDNISolone 20 MG in SYRINGE 0 ML IV STA (01:00)
[2022-12-31] MEDS ORDERED: ALBUT/IPRATROP 3MG/0.5MG NEB 3 ML VIAL NEB STA (01:00)
[2022-12-31] MEDS ORDERED: DOXYCYCLINE HYCLATE 100 MG in DEXTROSE 5% 100 ML IV STA (01:01)
--- NOTE | 2022-12-31 01:01 | History & Physical Report ---
Date of Service December 31, 2022 Assessment & Plan (1) COPD exacerbation: Plan: COPD/ILD exacerbation secondary to CAP Possible sepsis Immunocompromised patient History RA on chronic steroid Rx chronic diastolic heart failure (EF 60%, TTE 2021), patient euvolemic A-fib/borderline TBS on Eliquis hx PVD chronic anemia, hemoglobin at baseline Steroid-induced hyperglycemia rule out DM past tobacco abuse Medical telemetry Supplemental IV 1 dose now followed by prednisone 40 mg daily for 5 days then titrate down to usual 5 mg daily dose Nebs RTC CS, Cefepime and doxycycline Pulmonary consult if without improvement Check hemoglobin A1c DVT prophylaxis. Eliquis Full code Text document was generated using [employer] voice recognition software. It may contain grammatical or spelling errors. Kindly contact undersigned for clarification of any documentation item in question. History of Present Illness Chief Complaint: Cough, shortness of breath Primary Care Provider: Colby Solorzano DO History obtained from patient and records. Medical history significant for chronic diastolic heart failure (EF 60%, TTE 2021), A-fib/borderline TBS on Eliquis, PVD, PSVT, COPD/ILD as per records, chronic anemia (baseline hemoglobin 11-12), RA on chronic steroid Rx, BPH, past tobacco abuse. Last confinement July 2020 for chest pain attributed to GERD. No inducible ischemia on stress test. Patient has been sick for few days. Congestion with cough productive of junky sputum. Worsening shortness of breath. No chest pain complaints. Patient not sure about fluid retention. Denies aspiration. Patient completed COVID-19 vaccination. Zosyn administered at the ER for sepsis. 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 Allergies Allergy/AdvReac Type Severity Reaction Status Date / Time No Known Allergies Allergy Verified 12/31/22 00:31 Home Medications Medication Instructions Recorded Confirmed Type finasteride 5 mg tablet 5 mg PO DAILY 04/25/20 12/31/22 History gabapentin 300 mg capsule 300 mg PO BID 04/25/20 12/31/22 History prednisone 5 mg tablet 5 mg PO DAILY 04/25/20 12/31/22 History spironolactone 25 mg tablet 25 mg PO DAILY 04/25/20 12/31/22 History cholecalciferol (vitamin D3) 25 50 mcg PO DAILY 07/30/20 12/31/22 History mcg (1,000 unit) tablet (Vitamin D3) apixaban 5 mg tablet 5 mg PO BID 12/31/22 12/31/22 History fluticasone 250 mcg-salmeterol 50 1 inh inhalation BID 12/31/22 12/31/22 History mcg/dose blistr powdr for inhalation (Advair Diskus) metoprolol succinate 50 mg 25 mg PO BID 12/31/22 12/31/22 History tablet,extended release 24 hr pantoprazole 40 mg tablet,delayed 40 mg PO DAILY 12/31/22 12/31/22 History release Past Med/Surg History Medical History (Updated 12/31/22 @ 03:31 by Devon Herrera MD) Ascending aorta enlargement BPH (benign prostatic hyperplasia) COPD (chronic obstructive pulmonary disease) Hx of supraventricular tachycardia Rheumatoid arthritis Surgical History H/O inguinal hernia repair History of thoracotomy Family History Father Heart disease Social History Smoking Status: Former smoker Tobacco Type: Smokeless Tobacco (Dip or Chew) Cigarettes Per Day: 1 PPD; Smoking End Date: 40 years ago; Second Hand Exposure: No; Do You Dip or Chew Tobacco: No; Tobacco Cessation Education Requested by Patient: No Hx Alcohol Use: No Hx Substance Use: No Preferred Language: Wolof Communication Ability: Effective Toe Puncher Required: No Beliefs That Will Affect Care: None Current Living Situation: Alone Current Living Situation Comment: Lives alone, son lives in close proximity Other Information That Helps Us Care for You: No Feels Safe at Home: Yes Safety Concerns: Feels Safe At This Time Assistive Devices: Denture - Upper and Denture - Lower Review of Systems Review of Systems: As per HPI, all other systems reviewed and negative Physical Exam Physical Exam: GENERAL: Slightly uncomfortable, slightly hard of hearing, episodic tachypnea SKIN: Pallor, warm HEENT: Partial alopecia, pale palpebral conjunctivae, no ptosis, dry buccal mucosa NECK : Supple, no tenderness CHEST : Decreased breath sounds, no tenderness HEART : RRR, no obvious murmurs ABDOMEN: Marked distention, nontender EXTREMITIES : Minimal LE swelling, no LE tenderness, no other conspicuous deformities noted NEUROLOGIC : Coherent, no facial asymmetry, slightly hard of hearing, no other gross focality Results & Data Results & Data Vital Signs (Past 12 Hours) Vital Signs Temp Pulse Pulse Resp BP BP Pulse Ox 12/30/22 23:00 77 20 96 12/30/22 23:00 120/80 12/30/22 22:30 79 29 H 98 12/30/22 22:30 128/89 12/30/22 22:00 79 24 98 12/30/22 22:00 120/77 12/30/22 21:59 80 12/30/22 21:58 88 24 91 12/30/22 22:00 98 12/30/22 22:00 78 22 120/77 98 12/30/22 19:00 36.8 C 99 H 24 109/70 95 O2 Del Method 12/30/22 23:00 12/30/22 23:00 12/30/22 22:30 12/30/22 22:30 12/30/22 22:00 12/30/22 22:00 12/30/22 21:59 12/30/22 21:58 12/30/22 22:00 Room Air 12/30/22 22:00 Room Air 12/30/22 19:00 Room Air Laboratory Results Laboratory Results WBC 15.67 K/ul (4.8-10.8) H 12/30/22 20: RBC 3.13 M/uL (4.70-6.10) L 12/30/22 20:27 Hgb 11.1 g/dl (14.0-18.0) L 12/30/22 20: Hct 32.2 % (42.0-52.0) L 12/30/22 20: MCV 102.9 fL (80.0-100.0) H 12/30/22 20:27 MCH 35.5 pg (25.0-34.0) H 12/30/22 20:27 MCHC 34.5 g/dL (32.0-36.0) 12/30/22 20:27 RDW Std Deviation 54.9 fL (36.4-46.3) H 12/30/22 20: RDW Coeff of Roxanna 14.6 % (11.5-14.5) H 12/30/22 20: Plt Count 269 K/uL (130-400) 12/30/22 20: MPV 11.2 fL (9.4-12.4) 12/30/22 20: Immature Gran % (Auto) 1.0 % 12/30/22: Neut % (Auto) 84.9 % 12/30/22: Lymph % (Auto) 6.0 % 12/30/22: Cecil % (Auto) 7.8 % 12/30/22: Eos % (Auto) 0.1 % 12/30/22: Baso % (Auto) 0.2 % 12/30/22: Neut # (Auto) 13.31 K/uL (1.40-6.50) H 12/30/22 20: Lymph # (Auto) 0.94 K/uL (1.2-3.4) L 12/30/22 20: Cecil # (Auto) 1.23 K/uL (0.11-0.59) H 12/30/22 20: Eos # (Auto) 0.01 K/uL (0-0.50) 12/30/22 20: Baso # (Auto) 0.03 K/uL (0-0.2) 12/30/22 20: Immature Gran # (Auto) 0.15 K/uL (0.01-0.20) 12/30/22 20: PT 14.6 Seconds (9.0-12.0) H 12/30/22 20: INR 1.4 (0.9-1.1) H 12/30/22 20: APTT 39.6 Seconds (21.0-31.0) H 12/30/22 20: PTT Ratio 1.4 12/30/22 20: Sodium 131 mmol/L (136-145) L 12/30/22 20: Potassium 4.3 mmol/L (3.5-5.1) 12/30/22 20: Chloride 99 mmol/L (98-107) 12/30/22 20:27 Carbon Dioxide 22 mmol/L (21-32) 12/30/22 20:27 Anion Gap 10 (3-11) 12/30/22 20:27 BUN 24 mg/dl (6-23) H 12/30/22 20:27 Creatinine 1.05 mg/dl (0.6-1.4) 12/30/22 20:27 Est Cr Clr Drug Dosing 57.0 ml/min 12/30/22 20:27 Est GFR ( Amer) 77.9 ml/min 12/30/22 20:27 Est GFR (Non-Af Amer) 67.2 ml/min 12/30/22 20:27 BUN/Creatinine Ratio 22.9 (10-20) H 12/30/22 20:27 Glucose 168 mg/dl (70-99(Fasting)) H 12/30/22 20:27 Calcium 9.0 mg/dl (8.6-10.3) 12/30/22 20:27 Total Bilirubin 1.4 mg/dl (0.2-1.0) H 12/30/22 20:27 AST 34 U/L (13-39) 12/30/22 20:27 ALT 36 U/L (7-52) 12/30/22 20:27 Alkaline Phosphatase 59 U/L (34-104) 12/30/22 20:27 Troponin I High Sens 9.5 pg/ml (0-20) 12/30/22 23:54 B-Natriuretic Peptide 236 pg/ml (0-100) H 12/30/22 20:27 Total Protein 6.6 gm/dl (6.0-8.3) 12/30/22 20:27 Albumin 3.6 gm/dl (3.4-5.0) 12/30/22 20:27 Globulin 3.0 gm/dl (2.5-4.0) 12/30/22 20:27 Albumin/Globulin Ratio 1.2 (0.9-2) 12/30/22 20:27 SARS-CoV-2 (PCR) NEGATIVE (Negative) 12/30/22 20:27 Influenza Type A (PCR) Negative (Neg) 12/30/22 20:27 Influenza Type B (PCR) Negative (Neg) 12/30/22 20:27 RSV (RT-PCR) Negative (Neg) 12/30/22 20:27 Impressions Chest X-Ray 12/30/22 19:03 SINGLE VIEW CHEST CLINICAL HISTORY: Atypical chest pain. Cough and dyspnea FINDINGS: An AP, portable, upright chest radiograph is compared to study dated 09/04/2021 and correlated with chest CT dated 03/25/2016. The heart is enlarged note atherosclerotic calcification of the thoracic aorta. The pulmonary vasculature is noncongested. Pericardial calcification is similar to previous. Chronic interstitial thickening is unchanged. There is bibasilar scarring/atelectasis. There are patchy airspace opacities in the right upper lobe and in the left mid to lower lung. Suspect trace pleural effusions. No pneumothorax is seen. The skeletal structures are osteopenic. There is chronic deformity of the right-sided ribs. IMPRESSION: 1. Cardiomegaly without radiographic evidence of congestive failure. 2. There are patchy airspace opacities in the right upper lobe and in the left mid to lower lung. Correlate clinically for evidence of pneumonia/aspiration pneumonitis. Radiographic follow-up to resolution is recommended. 3. Question small pleural effusions. ACT 112: Negative or not required by law. Electronically signed by: Sheng Mckoy M.D. 12/30/2022 8:[address] 12/30/22 23:17 Exam(s): CT CHEST Without Contrast EXAM: CT Chest Without Intravenous Contrast CLINICAL HISTORY: Reason for exam: PNA, aspiration, jaundice appearing. TECHNIQUE: Axial computed tomography images of the chest without intravenous contrast. Automated exposure control was utilized for the study. A dose lowering technique was utilized adhering to the principles of ALARA. COMPARISON: 03/25/16 FINDINGS: Lungs: There are diffuse patchy areas of airways impaction and consolidation concerning for multifocal pneumonia, possibly atypical area. Pleural space: There are right-sided pleural plaques which are stable and suggestive of asbestos-related lung disease. No pneumothorax. No significant effusion. Heart: There is dense pericardial calcification, unchanged since at least 2015. No significant coronary artery calcifications. Bones/joints: Unremarkable. No acute fracture. No dislocation. Soft tissues: Unremarkable. Vasculature: Unremarkable. No thoracic aortic aneurysm. Lymph nodes: Unremarkable. No enlarged lymph nodes. Spleen: Multiple splenic calcifications most likely reflect granulomas. Intraperitoneal space: There is layering fluid within the left fissure. IMPRESSION: 1. Extensive areas of airways impaction and consolidation which may reflect infection. 2. Changes of asbestos-related lung disease. 3. Stable pericardial calcification. Electronically signed by: Brent Scott MD 12/30/22 23:57 PM Diagnostic Findings EKG as per my interpretation : Rate 80, NSR, normal axis, T wave abnormalities inferior leads, low voltage
[2022-12-31 01:15] LABS: Magnesium 2.3 mg/dl (1.7-2.4)
[2022-12-31] MEDS ORDERED: traMADol HCL 50 MG TABLET PO PRN (02:42)
[2022-12-31] MEDS ORDERED: PROMETHAZINE HCL 6.25 MG in SODIUM CHLORIDE 0.9% 50 ML IV PRN (02:42)
[2022-12-31] MEDS: CEFEPIME 2,000 MG in SYRINGE 0 ML IV SCH ×3 (05:02→21:24)
[2022-12-31 06:08] LABS: Hematocrit (blood only) 29.2 % (42.0-52.0); Hemoglobin 9.9 g/dl (14.0-18.0); Mean Corpuscular Hemoglobin 35.1 pg (25.0-34.0); Mean Corpuscular Hgb Conc 33.9 g/dL (32.0-36.0); Mean Corpuscular Volume 103.5 fL (80.0-100.0); Mean Platelet Volume 11.2 fL (9.4-12.4); Platelet Count 240 K/uL (130-400); RDW Coefficient of Variation 14.6 % (11.5-14.5); RDW Standard Deviation 55.6 fL (36.4-46.3); Red Blood Count 2.82 M/uL (4.70-6.10); White Blood Count 12.31 K/ul (4.8-10.8)
[2022-12-31 06:27] LABS: Calcium 8.4 mg/dl (8.6-10.3); Creatinine Clr Calc Pharmacy 60.4 ml/min; Est GFR (African American) 86.8 ml/min; Est GFR (Non-African American) 74.9 ml/min; Potassium 4.3 mmol/L (3.5-5.1)
[2022-12-31 06:29] LABS: Basophils # (auto) 0.02 K/uL (0-0.2); Basophils % (auto) 0.2 %; Immature Granulocytes # (auto) 0.11 K/uL (0.01-0.20); Immature Granulocytes % (auto) 0.9 %; Lymphocytes # (auto) 0.66 K/uL (1.2-3.4); Lymphocytes % (auto) 5.4 %; Monocytes # (auto) 0.37 K/uL (0.11-0.59); Neutrophils # (auto) 11.15 K/uL (1.40-6.50); Neutrophils % (auto) 90.5 %; Polychromasia 1+; Tear Drop Cells 1+
[2022-12-31] MEDS ORDERED: XOPENEX/ATROVENT 1.25mg/0.5MG NEB COMBO NEB SCH (07:00)
[2022-12-31] MEDS: IPRATROPIUM BROMIDE NEB SOLN 0.02% 2.5 ML VIAL INH SCH ×3 (07:42→19:47)
[2022-12-31] MEDS: LEVALBUTEROL 1.25MG/0.5ML NEB INH SCH ×3 (07:42→19:47)
[2022-12-31] MEDS: GABAPENTIN 300 MG CAP PO SCH ×2 (08:10→21:23)
[2022-12-31] MEDS: FINASTERIDE 5 MG TAB PO SCH (08:10)
[2022-12-31] MEDS: METOPROLOL SUCC 25MG EXT REL TAB PO SCH ×2 (08:10→21:23)
[2022-12-31] MEDS: FLUTICASONE/VILANTEROL 100/25MCG 14 PUFFS/INHALER INH SCH (08:10)
[2022-12-31] MEDS: PANTOprazole 40 MG TAB PO SCH (08:10)
[2022-12-31] MEDS: APIXABAN 5 MG TABLET PO SCH ×2 (08:11→21:23)
[2022-12-31] MEDS: SPIRONOLACTONE 25 MG TAB PO SCH (08:11)
[2022-12-31 09:26] LABS: Estimated Average Glucose 137 mg/dl; Hemoglobin A1C 6.4 % (4.5-5.6)
[2022-12-31] MEDS: SODIUM CHLOR 7% 4 ML NEB NEB SCH ×2 (11:02→19:47)
--- NOTE | 2022-12-31 12:26 | Electrocardiogram Report ---
Test Reason : Blood Pressure : / mmHG Vent. Rate : 081 BPM Atrial Rate : 081 BPM P-R Int : 176 ms QRS Dur : 070 ms QT Int : 384 ms P-R-T Axes : 000 030 -02 degrees QTc Int : 446 ms Poor data quality, interpretation may be adversely affected Sinus rhythm with Premature atrial complexes Otherwise normal ECG When compared with ECG of 04-SEP-2021 15:00, Previous ECG has undetermined rhythm, needs review T wave inversion less evident in Inferior leads Nonspecific T wave abnormality no longer evident in Anterolateral leads Confirmed by Balwinder Galvez ([id number]) on 12/31/2022 12:26:48 PM Referred By: REFERRED SELF Confirmed By:Balwinder Galvez
--- NOTE | 2022-12-31 15:30 | Communication Note ---
Date of Service: December 31, 2022 seen resting in bed, comfortable son at bedside states he feels better than yesterday breathing improving reports left lower leg wounds x 1 month lungs: mild crackles at bases L lower leg: (+) 2 wounds, lower salgado, with some yellow d/c surrounding erythema labs noted and reviewed a/p> BL pneumonia Mild COPD exacerbation Chronic Steroid use - sputum, blood cultures - Cefepime + Doxy Nebs Chronic Lower Ext wounds - on above abx - wound culture xray to r/o osteo other Dx and plan per Dr. Herrera's notes
--- NOTE | 2022-12-31 18:24 | XRay Report ---
LEFT TIBIA AND FIBULA 2 VIEWS CLINICAL HISTORY: Chronic leg wounds. FINDINGS: AP and lateral views of the left tibia and fibula are obtained. No prior studies are availa ble for comparison at the time of dictation. The skeletal structures are osteopenic. There is no radi ographic evidence of left tibial or fibular fracture. No bony erosion or periostitis is seen. The kne e and ankle joints are grossly maintained. Soft tissue edema is present throughout the left leg. No r adiodense foreign body or soft tissue gas is seen. There is atherosclerotic calcification of the hayde onal arteries. There are tiny dorsal and plantar heel spurs. IMPRESSION: Soft tissue edema with no acute bony abnormality identified. Electronically signed by: Sheng Mckoy M.D. 12/31/2022 6:23 PM
[2022-12-31] MEDS: DOXYCYCLINE HYCLATE 100 MG CAP PO SCH (21:24)
[2022-12-31] MEDS: guaiFENesin SUGAR FREE 200 MG/10 ML UDC PO PRN (23:18)
[2023-01-01] MEDS: ACETAMINOPHEN 325 MG TAB PO PRN ×2 (03:19→20:05)
[2023-01-01] MEDS: CEFEPIME 2,000 MG in SYRINGE 0 ML IV SCH ×3 (05:41→20:05)
[2023-01-01] MEDS: LEVALBUTEROL 1.25MG/0.5ML NEB INH SCH ×4 (07:08→19:10)
[2023-01-01] MEDS: SODIUM CHLOR 7% 4 ML NEB NEB SCH ×2 (07:08→19:10)
[2023-01-01] MEDS: IPRATROPIUM BROMIDE NEB SOLN 0.02% 2.5 ML VIAL INH SCH ×4 (07:09→19:10)
[2023-01-01] MEDS: DOXYCYCLINE HYCLATE 100 MG CAP PO SCH ×2 (08:14→20:05)
[2023-01-01] MEDS: FINASTERIDE 5 MG TAB PO SCH (08:14)
[2023-01-01] MEDS: APIXABAN 5 MG TABLET PO SCH ×2 (08:14→20:06)
[2023-01-01] MEDS: METOPROLOL SUCC 25MG EXT REL TAB PO SCH ×2 (08:14→20:06)
[2023-01-01] MEDS: GABAPENTIN 300 MG CAP PO SCH ×2 (08:14→20:06)
[2023-01-01] MEDS: PANTOprazole 40 MG TAB PO SCH (08:15)
[2023-01-01] MEDS: FLUTICASONE/VILANTEROL 100/25MCG 14 PUFFS/INHALER INH SCH (08:15)
[2023-01-01] MEDS: predniSONE 20 MG TAB PO SCH (08:15)
[2023-01-01 09:11] LABS: Basophils # (auto) 0.04 K/uL (0-0.2); Basophils % (auto) 0.3 %; Eosinophils # (auto) 0.01 K/uL (0-0.50); Eosinophils % (auto) 0.1 %; Hemoglobin 10.6 g/dl (14.0-18.0); Immature Granulocytes # (auto) 0.22 K/uL (0.01-0.20); Immature Granulocytes % (auto) 1.7 %; Lymphocytes # (auto) 1.75 K/uL (1.2-3.4); Lymphocytes % (auto) 13.7 %; Mean Corpuscular Hemoglobin 34.9 pg (25.0-34.0); Mean Corpuscular Hgb Conc 34.2 g/dL (32.0-36.0); Mean Platelet Volume 11.1 fL (9.4-12.4); Monocytes % (auto) 10.1 %; Neutrophils # (auto) 9.49 K/uL (1.40-6.50); Neutrophils % (auto) 74.1 %; Nucleated RBC # (auto) 0.02 K/uL (0-0.12); Nucleated RBC % (auto) 0.2 %; Platelet Count 257 K/uL (130-400); RDW Coefficient of Variation 14.6 % (11.5-14.5); RDW Standard Deviation 54.8 fL (36.4-46.3); Red Blood Count 3.04 M/uL (4.70-6.10); White Blood Count 12.81 K/ul (4.8-10.8)
[2023-01-01 10:04] LABS: Calcium 8.3 mg/dl (8.6-10.3); Potassium 3.7 mmol/L (3.5-5.1)
[2023-01-01 10:10] LABS: BUN Creatinine Ratio 27.8 (10-20); Creatinine Clr Calc Pharmacy 64.4 ml/min; Est GFR (African American) 93.8 ml/min; Est GFR (Non-African American) 80.9 ml/min
--- NOTE | 2023-01-01 11:59 | Hospitalist Progress Note ---
Date of Service January 01, 2023 Assessment & Plan (1) COPD exacerbation: Plan: BILATERAL PNEUMONIA MILD COPD EXACERBATION Possible sepsis Immunocompromised patient History RA on chronic steroid Rx - improving overall on room air - blood cultures negative so far sputum culture pending - continue Cefepime + Doxycycline continue Nebs, IS, FV LEFT LOWER LEG WOUNDS - ongoing for 1 month now - Tib/fib xray: no osteo L LE MRI: pending - wound culture: pending - wound seems to be healing well - wound care consult - antibiotics per above chronic diastolic heart failure (EF 60%, TTE 2021), patient euvolemic A-fib/borderline TBS on Eliquis hx PVD chronic anemia, hemoglobin at baseline Steroid-induced hyperglycemia rule out DM past tobacco abuse Medical telemetry Supplemental IV 1 dose now followed by prednisone 40 mg daily for 5 days then titrate down to usual 5 mg daily dose Nebs RTC CS, Cefepime and doxycycline Pulmonary consult if without improvement Check hemoglobin A1c : 6.4 DVT prophylaxis. Eliquis Full code Disposition lives at home PT/OT evaluation Admission and Anticipated Discharge Date Admission Date: December 31, 2022 Subjective ff up for BL pneumonia, etc seen resting in bed, comfortable on room air states he feels improved today breathing improving, cough less able to bring up some phlegm no fever/chills no chest pain, dyspnea, palpitations, dizziness minimal leg discomfort no other symptoms Review of Systems Review of Systems: all noted and negative except for above Physical Exam Physical Exam: General- oriented x 3, not in distress, speaks in sentences with no effort or accessory muscle use Eyes- anicteric Neck- no JVD Lungs- mild crackles at the bases Heart- normal rate, regular rhythm; no murmurs Abdomen- normal bowel sounds, nondistended, soft, nontender Extremities- no pretibial edema, no calf tenderness L LE: 2 wounds lower anterior aspect- surrounding erythema improving no active discharge Neuro- alert, oriented x 3; no gross focal neurologic deficits Skin- warm & dry Results & Data Results & Data Vital Signs (Past 12 Hours) Vital Signs Temp Pulse Pulse Resp BP BP Pulse Ox 01/01/23 10:50 88 18 95 01/01/23 08:09 36.6 C 90 18 110/73 92 01/01/23 07:12 74 18 92 01/01/23 06:59 76 01/01/23 03:00 37.5 C 88 18 97/57 L 93 01/01/23 02:08 Pulse Ox O2 Del Method O2 Del Method O2 Flow Rate 01/01/23 10:50 Room Air 01/01/23 08:09 Room Air 01/01/23 07:12 Room Air 01/01/23 06:59 01/01/23 03:00 Room Air 01/01/23 02:08 95 Nasal Cannula 2 all noted and reviewed including below
--- NOTE | 2023-01-01 13:13 | Magnetic Resonance Report ---
MR lower leg LT wo con CLINICAL HISTORY: CHRONIC LEFT LEG WOUNDS R/O OSTEOMYELITIS TECHNIQUE: Multisequence, multiplanar MR images of the left lower leg were obtained without contras t COMPARISON: Comparison is made to tibia and fibula radiographs 12/31/2022 FINDINGS: No bony edema is seen to suggest osteomyelitis. Soft tissue edema is seen circumferentially with some skin thickening. Some ulceration is seen at the site of the marker. No drainable fluid collections. IMPRESSION: Soft tissue ulcers and edema which may represent cellulitis. No evidence of underlying osteomyelitis or drainable fluid collection. ACT 112: Negative or not required by law. Electronically signed by: Shaji Black M.D. 01/01/2023 1:11 PM
[2023-01-01] MEDS: guaiFENesin SUGAR FREE 200 MG/10 ML UDC PO PRN (20:05)
[2023-01-02] MEDS: CEFEPIME 2,000 MG in SYRINGE 0 ML IV SCH ×3 (06:12→21:07)
[2023-01-02] MEDS: SODIUM CHLOR 7% 4 ML NEB NEB SCH (08:25)
[2023-01-02] MEDS: IPRATROPIUM BROMIDE NEB SOLN 0.02% 2.5 ML VIAL INH SCH (08:26)
[2023-01-02] MEDS: LEVALBUTEROL 1.25MG/0.5ML NEB INH SCH (08:26)
[2023-01-02] MEDS: APIXABAN 5 MG TABLET PO SCH ×2 (08:45→21:04)
[2023-01-02] MEDS: DOXYCYCLINE HYCLATE 100 MG CAP PO SCH ×2 (08:45→21:04)
[2023-01-02] MEDS: METOPROLOL SUCC 25MG EXT REL TAB PO SCH ×2 (08:46→21:04)
[2023-01-02] MEDS: FINASTERIDE 5 MG TAB PO SCH (08:46)
[2023-01-02] MEDS: GABAPENTIN 300 MG CAP PO SCH ×2 (08:46→21:05)
[2023-01-02] MEDS: FLUTICASONE/VILANTEROL 100/25MCG 14 PUFFS/INHALER INH SCH (08:46)
[2023-01-02] MEDS: predniSONE 20 MG TAB PO SCH (08:46)
[2023-01-02] MEDS: ADVANCED PROBIOTIC 1250 MG CAPSULE PO SCH (08:46)
[2023-01-02] MEDS: PANTOprazole 40 MG TAB PO SCH (08:46)
[2023-01-02] MEDS ORDERED: LEVALBUTEROL 1.25MG/0.5ML NEB INH PRN (09:29)
[2023-01-02] MEDS ORDERED: IPRATROPIUM BROMIDE NEB SOLN 0.02% 2.5 ML VIAL INH PRN (09:29)
--- NOTE | 2023-01-02 10:19 | Hospitalist Progress Note ---
Date of Service January 02, 2023 Assessment & Plan (1) COPD exacerbation: Plan: BILATERAL PNEUMONIA MILD COPD EXACERBATION Possible sepsis Immunocompromised patient History RA on chronic steroid Rx - improving overall on room air - blood cultures negative so far sputum culture normal shahram - continue Cefepime + Doxycycline anticipate transition Cefepime --> PO Levaquin tomorrow given Nebs, IS, FV LEFT LOWER LEG WOUNDS - ongoing for 1 month now - Tib/fib xray: no osteo L LE MRI: no Osteomyelitis - wound culture: Coag neg staph - wound seems to be healing well - wound care consult - antibiotics per above chronic diastolic heart failure (EF 60%, TTE 2021), patient euvolemic A-fib/borderline TBS on Eliquis hx PVD chronic anemia, hemoglobin at baseline Steroid-induced hyperglycemia - A1c 6.4 past tobacco abuse DVT prophylaxis. Eliquis Full code Disposition lives at home PT - recommend return home patient prefers to return home upon discharge Admission and Anticipated Discharge Date Admission Date: December 31, 2022 Subjective ff up for BL pneumonia, etc seen resting in bed, comfortable states breathing is improving less cough no chest pain no fever/chills still has some discomfort over the left lower leg weakness improving appetite good no other symptoms Review of Systems Review of Systems: all noted and negative except for above Physical Exam Physical Exam: General- oriented x 3, not in distress, speaks in sentences with no effort or accessory muscle use Eyes- anicteric Neck- no JVD Lungs- mild crackles at the bases improving no wheezing Heart- normal rate, regular rhythm; no murmurs Abdomen- normal bowel sounds, nondistended, soft, nontender Extremities- no pretibial edema, no calf tenderness LLE: wounds- surrounding erythema improving healing good Neuro- alert, oriented x 3; no gross focal neurologic deficits Skin- warm & dry Results & Data Results & Data Vital Signs (Past 12 Hours) Vital Signs Temp Pulse Pulse Resp BP BP Pulse Ox 01/02/23 08:29 82 16 98 01/02/23 05:59 67 01/02/23 07:39 36.6 C 67 18 113/71 96 01/02/23 03:34 36.5 C 86 18 106/70 98 01/01/23 22:30 81 01/01/23 23:09 36.7 C 100 H 20 110/72 93 03/26/23 22:37 O2 Del Method 01/02/23 08:29 Room Air 01/02/23 05:59 01/02/23 07:39 Room Air 01/02/23 03:34 Room Air 01/01/23 22:30 01/01/23 23:09 Room Air 01/01/23 22:37 Room Air
[2023-01-02] MEDS: ACETAMINOPHEN 325 MG TAB PO PRN (22:24)
[2023-01-03] MEDS: CEFEPIME 2,000 MG in SYRINGE 0 ML IV SCH (05:50)
[2023-01-03] MEDS: METOPROLOL SUCC 25MG EXT REL TAB PO SCH ×2 (08:45→20:47)
[2023-01-03] MEDS: FINASTERIDE 5 MG TAB PO SCH (08:45)
[2023-01-03] MEDS: GABAPENTIN 300 MG CAP PO SCH ×2 (08:45→20:47)
[2023-01-03] MEDS: PANTOprazole 40 MG TAB PO SCH (08:45)
[2023-01-03] MEDS: predniSONE 20 MG TAB PO SCH (08:45)
[2023-01-03] MEDS: SPIRONOLACTONE 25 MG TAB PO SCH (08:45)
[2023-01-03] MEDS: APIXABAN 5 MG TABLET PO SCH ×2 (08:45→20:47)
[2023-01-03] MEDS: ADVANCED PROBIOTIC 1250 MG CAPSULE PO SCH (08:45)
[2023-01-03] MEDS: FLUTICASONE/VILANTEROL 100/25MCG 14 PUFFS/INHALER INH SCH (08:46)
[2023-01-03] MEDS: DOXYCYCLINE HYCLATE 100 MG CAP PO SCH ×2 (08:46→20:47)
[2023-01-03 09:19] LABS: Basophils # (auto) 0.03 K/uL (0-0.2); Basophils % (auto) 0.2 %; Eosinophils # (auto) 0.01 K/uL (0-0.50); Eosinophils % (auto) 0.1 %; Hemoglobin 10.9 g/dl (14.0-18.0); Immature Granulocytes % (auto) 2.8 %; Lymphocytes # (auto) 1.63 K/uL (1.2-3.4); Lymphocytes % (auto) 11.3 %; Mean Corpuscular Hemoglobin 34.9 pg (25.0-34.0); Mean Corpuscular Volume 105.8 fL (80.0-100.0); Mean Platelet Volume 11.1 fL (9.4-12.4); Monocytes # (auto) 0.91 K/uL (0.11-0.59); Monocytes % (auto) 6.3 %; Neutrophils # (auto) 11.49 K/uL (1.40-6.50); Neutrophils % (auto) 79.3 %; Nucleated RBC # (auto) 0.02 K/uL (0-0.12); Nucleated RBC % (auto) 0.1 %; Platelet Count 316 K/uL (130-400); RDW Coefficient of Variation 14.6 % (11.5-14.5); RDW Standard Deviation 56.7 fL (36.4-46.3); Red Blood Count 3.12 M/uL (4.70-6.10); White Blood Count 14.47 K/ul (4.8-10.8)
[2023-01-03 09:46] LABS: Calcium 8.9 mg/dl (8.6-10.3); Creatinine Clr Calc Pharmacy 59.7 ml/min; Est GFR (African American) 85.7 ml/min; Est GFR (Non-African American) 73.9 ml/min; Potassium 4.2 mmol/L (3.5-5.1)
[2023-01-03] MEDS ORDERED: FUROSEMIDE 40 MG/4 ML VIAL IV ONE (10:38)
[2023-01-03] MEDS: levoFLOXacin 750 MG TAB PO SCH (12:26)
--- NOTE | 2023-01-03 17:28 | Hospitalist Progress Note ---
Date of Service January 03, 2023 Assessment & Plan (1) COPD exacerbation: Plan: BILATERAL PNEUMONIA MILD COPD EXACERBATION Possible sepsis Immunocompromised patient History RA on chronic steroid Rx - improving overall on room air - blood cultures negative sputum culture normal shahram - continue Cefepime --> changed to Levaquin PO today (abx day 4) given Nebs, IS, FV LEFT LOWER LEG WOUNDS - sustained from being injured after leg hit logs - ongoing for 1 month now - Tib/fib xray: no osteo L LE MRI: no Osteomyelitis - wound culture: Coag neg staph - wound seems to be healing well - wound care consult - continue Doxycycline Day 4 chronic diastolic heart failure (EF 60%, TTE 2021) - (+) BL lower leg edema Lasix 40mg IV today usual Spironolactone resumed - monitor A-fib/borderline TBS on Eliquis hx PVD chronic anemia, hemoglobin at baseline Steroid-induced hyperglycemia - A1c 6.4 past tobacco abuse DVT prophylaxis. Eliquis Full code Disposition lives at home PT - recommend return home patient prefers to return home upon discharge will need 2 step O2 test upon discharge Admission and Anticipated Discharge Date Admission Date: December 31, 2022 Subjective ff up for BL pneumonia, L lower leg wound infection, etc seen resting in bed, comfortable states he continues to feel improved minimal dyspnea on exertion less cough no fever/chills mild L lower leg discomfort reports BL leg swelling no other symptoms Review of Systems Review of Systems: all noted and negative except for above Physical Exam Physical Exam: General- oriented x 3, not in distress, speaks in sentences with no effort or accessory muscle use Eyes- anicteric Neck- no JVD Lungs- mild crackles at the bases, no wheezing Heart- normal rate, regular rhythm; no murmurs Abdomen- normal bowel sounds, nondistended, soft, nontender Extremities- (+) grade 1 lower ext edema, no erythema/warmth/tenderness (+) wounds on the L lower leg: dressing in place Neuro- alert, oriented x 3; no gross focal neurologic deficits Skin- warm & dry Results & Data Results & Data Vital Signs (Past 12 Hours) Vital Signs Temp Pulse Pulse Resp BP Pulse Ox O2 Del Method 01/03/23 15:26 36.4 C L 63 20 109/70 99 Room Air 01/03/23 08:40 Room Air 01/03/23 08:00 60 01/03/23 11:25 35.6 C L 63 20 129/84 99 Room Air 01/03/23 08:01 36.4 C L 62 18 102/67 97 Room Air all noted and reviewed including below
[2023-01-03] MEDS: ACETAMINOPHEN 325 MG TAB PO PRN (20:51)
[2023-01-04 07:37] LABS: BUN Creatinine Ratio 33.9 (10-20); Calcium 8.7 mg/dl (8.6-10.3); Creatinine Clr Calc Pharmacy 53.2 ml/min; Est GFR (African American) 74.4 ml/min; Est GFR (Non-African American) 64.2 ml/min; Magnesium 2.2 mg/dl (1.7-2.4); Potassium 4.1 mmol/L (3.5-5.1)
[2023-01-04] MEDS: ADVANCED PROBIOTIC 1250 MG CAPSULE PO SCH (08:29)
[2023-01-04] MEDS: FINASTERIDE 5 MG TAB PO SCH (08:29)
[2023-01-04] MEDS: SPIRONOLACTONE 25 MG TAB PO SCH (08:29)
[2023-01-04] MEDS: predniSONE 20 MG TAB PO SCH (08:29)
[2023-01-04] MEDS: PANTOprazole 40 MG TAB PO SCH (08:29)
[2023-01-04] MEDS: METOPROLOL SUCC 25MG EXT REL TAB PO SCH ×2 (08:30→20:13)
[2023-01-04] MEDS: GABAPENTIN 300 MG CAP PO SCH ×2 (08:30→20:13)
[2023-01-04] MEDS: DOXYCYCLINE HYCLATE 100 MG CAP PO SCH ×2 (08:30→20:13)
[2023-01-04] MEDS: APIXABAN 5 MG TABLET PO SCH ×2 (08:30→20:13)
[2023-01-04] MEDS: FLUTICASONE/VILANTEROL 100/25MCG 14 PUFFS/INHALER INH SCH (08:31)
[2023-01-04] MEDS: levoFLOXacin 750 MG TAB PO SCH (12:03)
--- NOTE | 2023-01-04 17:14 | Hospitalist Progress Note ---
Date of Service January 04, 2023 Assessment & Plan (1) COPD exacerbation: Plan: BILATERAL PNEUMONIA MILD COPD EXACERBATION Possible sepsis Immunocompromised patient History RA on chronic steroid Rx Blood cultures negative Sputum culture normal shahram Continue Cefepime --> changed to Levaquin PO today (abx day 5) Clinically much better and does not have any shortness of breath and or wheezing at rest LEFT LOWER LEG WOUNDS - sustained from being injured after leg hit logs - ongoing for 1 month now - Tib/fib xray: no osteo L LE MRI: no Osteomyelitis - wound culture: Coag neg staph - wound seems to be healing well - wound care consult - continue Doxycycline Day 5 -Wound has been looking better and there is no surrounding infection -Continue with the wound care Chronic diastolic heart failure (EF 60%, TTE 2021) - (+) BL lower leg edema Lasix 40mg IV today usual Spironolactone resumed We will continue Lasix IV 40 mg twice a day and monitor. Elevate the legs to decrease edema A-fib/borderline TBS on Eliquis hx PVD chronic anemia, hemoglobin at baseline Steroid-induced hyperglycemia - A1c 6.4 past tobacco abuse DVT prophylaxis. Eliquis Full code Disposition lives at home PT - recommend return home patient prefers to return home upon discharge will need 2 step O2 test upon discharge Admission and Anticipated Discharge Date Admission Date: December 31, 2022 Subjective 01/04/2023 The patient was seen and examined in medical telemetry unit He has been complaining of swelling of the legs without any shortness of breath or palpitation His leg wounds are better He is getting physical therapy and has been moving around in the room without any difficulties Review of Systems Review of Systems: All systems reviewed and are unremarkable except as noted below Physical Exam Physical Exam: Lying in bed comfortably Constitutional: well developed, well nourished and + obese; not ill appearing Eyes: PERRL, conjunctivae normal, anicteric sclerae ENMT: external ear and nose normal, oropharynx normal Neck: trachea midline, no thyromegaly Respiratory: no respiratory distress Auscultation: + diminished lung sounds and + crackles (Minimal crackles at the bases) Cardiovascular: Rate/Rhythm: regular rate and regular rhythm; not tachycardic Heart Sounds: normal S1 and normal S2; no murmur Extremities: + edema (2+ edema bilaterally) Gastrointestinal (Abdomen): Inspection/Auscultation: normal bowel sounds; abdomen not distended Percussion/Palpation: abdomen soft; abdomen nontender Musculoskeletal: No acute arthritis involving any joint Skin: Bilateral leg ulcer more on the left than the right involving mid leg Neurologic: normal touch/pain/proprioception and moves all extremities; no focal motor deficits Psychiatric: A+Ox3, euthymic affect Lymphatic: no cervical or axillary lymphadenopathy Results & Data Results & Data Vital Signs (Past 12 Hours) Vital Signs Temp Pulse Pulse Resp BP BP Pulse Ox 01/04/23 14:05 61 01/04/23 15:14 36.9 C 62 20 106/65 97 01/04/23 11:32 36.8 C 63 19 100/64 98 01/04/23 07:48 36.4 C L 64 20 103/64 98 01/04/23 07:00 79 O2 Del Method 01/04/23 14:05 01/04/23 15:14 Room Air 01/04/23 11:32 Room Air 01/04/23 07:48 Room Air 01/04/23 07:00 Laboratory Results BMP 01/04/23 05:34 Sodium 134 L Potassium 4.1 Chloride 101 Carbon Dioxide 24 BUN 37 H Creatinine 1.09 Glucose 116 H Calcium 8.7 Medications Administered Current Inpatient Medications Acetaminophen (Acetaminophen 325 Mg Tab) 650 mg PO Q4H PRN PRN Reason: Pain or Fever Stop: 01/30/23 02:41 Last Admin: 01/03/23 20:51 Dose: 650 mg Apixaban (Apixaban 5 Mg Tablet) 5 mg PO BID [facility] Stop: 01/30/23 08:59 Last Admin: 01/04/23 08:30 Dose: 5 mg Doxycycline Hyclate (Doxycycline Hyclate 100 Mg Cap) 100 mg PO BID [facility] Stop: 01/07/23 20:59 Last Admin: 01/04/23 08:30 Dose: 100 mg Finasteride (Finasteride 5 Mg Tab) 5 mg PO DAILY [facility] Stop: 01/30/23 08:59 Last Admin: 01/04/23 08:29 Dose: 5 mg Fluticasone/Vilanterol (Fluticasone/Vilanterol 100/25mcg 14 Puffs/Inhaler) 1 puffs INH DAILY [facility] Stop: 01/30/23 08:59 Last Admin: 01/04/23 08:31 Dose: 1 puffs Gabapentin (Gabapentin 300 Mg Cap) 300 mg PO BID [facility] Stop: 01/30/23 08:59 Last Admin: 01/04/23 08:30 Dose: 300 mg Guaifenesin (Guaifenesin Sugar Free 200 Mg/10 Ml Udc) 200 mg PO Q6H PRN PRN Reason: Cough Stop: 01/30/23 22:50 Last Admin: 01/01/23 20:05 Dose: 200 mg Promethazine HCl 6.25 mg/ (Sodium Chloride) 50.25 mls @ 201 mls/hr IV Q6H PRN PRN Reason: Nausea And Vomiting Stop: 01/30/23 02:41 Ipratropium [place] (Ipratropium [place] Neb Soln 0.02% 2.5 Ml Vial) 0.5 mg INH Q4R PRN PRN Reason: Shortness Of Breath Or Wheezing Stop: 02/01/23 09:28 Lactobacillus Acidophilus (Advanced Probiotic 1250 Mg Capsule) 2 cap PO DAILY [facility] Stop: 02/01/23 08:59 Last Admin: 01/04/23 08:29 Dose: 2 cap Levalbuterol HCl (Levalbuterol 1.25mg/0.5ml Neb) 1.25 mg INH Q4R PRN PRN Reason: Shortness Of Breath Or Wheezing Stop: 02/01/23 09:28 Levofloxacin (Levofloxacin 750 Mg Tab) 750 mg PO Q24H [facility] Stop: 01/10/23 11:59 Last Admin: 01/04/23 12:03 Dose: 750 mg Metoprolol Succinate (Metoprolol Succ 25mg Ext Rel Tab) 25 mg PO BID [facility] Stop: 01/30/23 08:59 Last Admin: 01/04/23 08:30 Dose: 25 mg Pantoprazole Sodium (Pantoprazole 40 Mg Tab) 40 mg PO DAILY [facility] Stop: 01/30/23 08:59 Last Admin: 01/04/23 08:29 Dose: 40 mg Prednisone (Prednisone 20 Mg Tab) 40 mg PO DAILY [facility] Stop: 01/05/23 08:59 Last Admin: 01/04/23 08:29 Dose: 40 mg Spironolactone (Spironolactone 25 Mg Tab) 25 mg PO DAILY [facility] Stop: 01/30/23 08:59 Last Admin: 01/04/23 08:29 Dose: 25 mg Tramadol HCl (Tramadol Hcl 50 Mg Tablet) 25 mg PO Q4H PRN PRN Reason: Pain Stop: 01/30/23 02:41
[2023-01-04] MEDS: FUROSEMIDE 40 MG/4 ML VIAL IV SCH (18:17)
[2023-01-05] MEDS: SPIRONOLACTONE 25 MG TAB PO SCH (07:51)
[2023-01-05] MEDS: ADVANCED PROBIOTIC 1250 MG CAPSULE PO SCH (07:51)
[2023-01-05] MEDS: PANTOprazole 40 MG TAB PO SCH (07:53)
[2023-01-05] MEDS: FINASTERIDE 5 MG TAB PO SCH (07:53)
[2023-01-05] MEDS: METOPROLOL SUCC 25MG EXT REL TAB PO SCH ×2 (07:54→20:19)
[2023-01-05] MEDS: APIXABAN 5 MG TABLET PO SCH ×2 (07:54→20:21)
[2023-01-05] MEDS: GABAPENTIN 300 MG CAP PO SCH ×2 (07:54→20:19)
[2023-01-05] MEDS: DOXYCYCLINE HYCLATE 100 MG CAP PO SCH ×2 (07:54→20:20)
[2023-01-05] MEDS: FLUTICASONE/VILANTEROL 100/25MCG 14 PUFFS/INHALER INH SCH (07:55)
[2023-01-05] MEDS: FUROSEMIDE 40 MG/4 ML VIAL IV SCH ×2 (07:55→16:43)
[2023-01-05] MEDS: levoFLOXacin 750 MG TAB PO SCH (12:34)
--- NOTE | 2023-01-05 12:56 | Hospitalist Progress Note ---
Date of Service January 05, 2023 Assessment & Plan (1) COPD exacerbation: Plan: BILATERAL PNEUMONIA MILD COPD EXACERBATION Possible sepsis Immunocompromised patient History RA on chronic steroid Rx Blood cultures negative Sputum culture normal shahram Continue Cefepime --> changed to Levaquin PO today (abx day 6) Clinically much better and does not have any shortness of breath and or wheezing at rest Denies any cough and/or shortness of breath at rest or with minimal exertion Will finish the course of antibiotic for a total of 10 days LEFT LOWER LEG WOUNDS - sustained from being injured after leg hit logs - ongoing for 1 month now - Tib/fib xray: no osteo L LE MRI: no Osteomyelitis - wound culture: Coag neg staph - wound seems to be healing well - wound care consult - continue Doxycycline Day 6 -Wound has been looking better and there is no surrounding infection -Continue with the wound care and antibiotic for a total of 10 days - Chronic diastolic heart failure (EF 60%, TTE 2021) - (+) BL lower leg edema Received Lasix intravenously 40 mg day before yesterday that is 01/03/2023 usual Spironolactone resumed Has been getting Lasix 40 mg twice daily since yesterday 01/04/2023. Leg swelling improved and the wound is looking better too We will check PRP and continue IV Lasix for now A-fib/borderline TBS on Eliquis hx PVD chronic anemia, hemoglobin at baseline Steroid-induced hyperglycemia - A1c 6.4 past tobacco abuse DVT prophylaxis. Eliquis Full code Disposition lives at home PT - recommend return home patient prefers to return home upon discharge will need 2 step O2 test upon discharge Admission and Anticipated Discharge Date Admission Date: December 31, 2022 Subjective 01/04/2023 The patient was seen and examined in medical telemetry unit He has been complaining of swelling of the legs without any shortness of breath or palpitation His leg wounds are better He is getting physical therapy and has been moving around in the room without any difficulties 01/05/2023 The patient was seen and examined in medical telemetry unit He has been feeling much better and denies any cough and/or shortness of breath at rest His leg swelling has improved and the wound seems to be reasonably improving Denies any other significant symptoms Review of Systems Review of Systems: All systems reviewed and are unremarkable except as noted below Physical Exam Physical Exam: Lying in bed comfortably Constitutional: well developed, well nourished and + obese; not ill appearing Eyes: PERRL, conjunctivae normal, anicteric sclerae ENMT: external ear and nose normal, oropharynx normal Neck: trachea midline, no thyromegaly Respiratory: no respiratory distress Auscultation: + diminished lung sounds and + crackles (Minimal crackles at the bases) Cardiovascular: Rate/Rhythm: regular rate and regular rhythm; not tachycardic Heart Sounds: normal S1 and normal S2; no murmur Extremities: + edema (1+ edema bilaterally) Gastrointestinal (Abdomen): Inspection/Auscultation: normal bowel sounds; abdomen not distended Percussion/Palpation: abdomen soft; abdomen nontender Neurologic: normal touch/pain/proprioception and moves all extremities; no focal motor deficits Alert, awake and oriented x3 Psychiatric: A+Ox3, euthymic affect Lymphatic: no cervical or axillary lymphadenopathy Results & Data Results & Data Vital Signs (Past 12 Hours) Vital Signs Temp Pulse Pulse Resp BP Pulse Ox O2 Del Method 01/05/23 11:38 36.6 C 63 16 103/69 98 Room Air 01/05/23 08:00 Room Air 01/05/23 07:53 36.6 C 71 16 109/51 L 94 Room Air 01/05/23 07:26 65 01/05/23 04:00 36.6 C 73 18 106/58 L 97 Room Air Medications Administered Current Inpatient Medications Acetaminophen (Acetaminophen 325 Mg Tab) 650 mg PO Q4H PRN PRN Reason: Pain or Fever Stop: 01/30/23 02:41 Last Admin: 01/03/23 20:51 Dose: 650 mg Apixaban (Apixaban 5 Mg Tablet) 5 mg PO BID [facility] Stop: 01/30/23 08:59 Last Admin: 01/05/23 07:54 Dose: 5 mg Doxycycline Hyclate (Doxycycline Hyclate 100 Mg Cap) 100 mg PO BID [facility] Stop: 01/07/23 20:59 Last Admin: 01/05/23 07:54 Dose: 100 mg Finasteride (Finasteride 5 Mg Tab) 5 mg PO DAILY [facility] Stop: 01/30/23 08:59 Last Admin: 01/05/23 07:53 Dose: 5 mg Fluticasone/Vilanterol (Fluticasone/Vilanterol 100/25mcg 14 Puffs/Inhaler) 1 puffs INH DAILY [facility] Stop: 01/30/23 08:59 Last Admin: 01/05/23 07:55 Dose: 1 puffs Furosemide (Furosemide 40 Mg/4 Ml Vial) 40 mg IV BIDM [facility] Stop: 02/03/23 16:59 Last Admin: 01/05/23 07:55 Dose: 40 mg Gabapentin (Gabapentin 300 Mg Cap) 300 mg PO BID [facility] Stop: 01/30/23 08:59 Last Admin: 01/05/23 07:54 Dose: 300 mg Guaifenesin (Guaifenesin Sugar Free 200 Mg/10 Ml Udc) 200 mg PO Q6H PRN PRN Reason: Cough Stop: 01/30/23 22:50 Last Admin: 01/01/23 20:05 Dose: 200 mg Promethazine HCl 6.25 mg/ (Sodium Chloride) 50.25 mls @ 201 mls/hr IV Q6H PRN PRN Reason: Nausea And Vomiting Stop: 01/30/23 02:41 Ipratropium [place] (Ipratropium [place] Neb Soln 0.02% 2.5 Ml Vial) 0.5 mg INH Q4R PRN PRN Reason: Shortness Of Breath Or Wheezing Stop: 02/01/23 09:28 Lactobacillus Acidophilus (Advanced Probiotic 1250 Mg Capsule) 2 cap PO DAILY [facility] Stop: 02/01/23 08:59 Last Admin: 01/05/23 07:51 Dose: 2 cap Levalbuterol HCl (Levalbuterol 1.25mg/0.5ml Neb) 1.25 mg INH Q4R PRN PRN Reason: Shortness Of Breath Or Wheezing Stop: 02/01/23 09:28 Levofloxacin (Levofloxacin 750 Mg Tab) 750 mg PO Q24H [facility] Stop: 01/10/23 11:59 Last Admin: 01/05/23 12:34 Dose: 750 mg Metoprolol Succinate (Metoprolol Succ 25mg Ext Rel Tab) 25 mg PO BID [facility] Stop: 01/30/23 08:59 Last Admin: 01/05/23 07:54 Dose: 25 mg Pantoprazole Sodium (Pantoprazole 40 Mg Tab) 40 mg PO DAILY [facility] Stop: 01/30/23 08:59 Last Admin: 01/05/23 07:53 Dose: 40 mg Spironolactone (Spironolactone 25 Mg Tab) 25 mg PO DAILY [facility] Stop: 01/30/23 08:59 Last Admin: 01/05/23 07:51 Dose: 25 mg Tramadol HCl (Tramadol Hcl 50 Mg Tablet) 25 mg PO Q4H PRN PRN Reason: Pain Stop: 01/30/23 02:41
[2023-01-05 16:04] LABS: BUN Creatinine Ratio 37.5 (10-20); Calcium 8.7 mg/dl (8.6-10.3); Creatinine Clr Calc Pharmacy 55.7 ml/min; Est GFR (African American) 78.8 ml/min; Magnesium 2.3 mg/dl (1.7-2.4); Potassium 3.9 mmol/L (3.5-5.1)
[2023-01-06 08:17] LABS: BUN Creatinine Ratio 31.9 (10-20); Calcium 8.8 mg/dl (8.6-10.3); Est GFR (Non-African American) 59.6 ml/min; Potassium 4.1 mmol/L (3.5-5.1)
[2023-01-06] MEDS: GABAPENTIN 300 MG CAP PO SCH (08:40)
[2023-01-06] MEDS: ADVANCED PROBIOTIC 1250 MG CAPSULE PO SCH (08:40)
[2023-01-06] MEDS: SPIRONOLACTONE 25 MG TAB PO SCH (08:40)
[2023-01-06] MEDS: APIXABAN 5 MG TABLET PO SCH (08:40)
[2023-01-06] MEDS: DOXYCYCLINE HYCLATE 100 MG CAP PO SCH (08:40)
[2023-01-06] MEDS: METOPROLOL SUCC 25MG EXT REL TAB PO SCH (08:40)
[2023-01-06] MEDS: FINASTERIDE 5 MG TAB PO SCH (08:40)
[2023-01-06] MEDS: PANTOprazole 40 MG TAB PO SCH (08:41)
[2023-01-06] MEDS: FLUTICASONE/VILANTEROL 100/25MCG 14 PUFFS/INHALER INH SCH (08:41)
[2023-01-06] MEDS: FUROSEMIDE 40 MG/4 ML VIAL IV SCH (08:41)
--- NOTE | 2023-01-06 11:47 | Hospitalist Progress Note ---
Date of Service January 06, 2023 Assessment & Plan (1) COPD exacerbation: Plan: BILATERAL PNEUMONIA MILD COPD EXACERBATION Possible sepsis Immunocompromised patient History RA on chronic steroid Rx Blood cultures negative Sputum culture normal shahram Continue Cefepime --> changed to Levaquin PO today (abx day 6) Clinically much better and does not have any shortness of breath and or wheezing at rest Denies any cough and/or shortness of breath at rest or with minimal exertion Will finish the course of antibiotic for a total of 10 days Clinically much better and symptomatically improved LEFT LOWER LEG WOUNDS - sustained from being injured after leg hit logs - ongoing for 1 month now - Tib/fib xray: no osteo L LE MRI: no Osteomyelitis - wound culture: Coag neg staph - wound seems to be healing well - wound care consult - continue Doxycycline Day 6 -Wound has been looking better and there is no surrounding infection -Continue with the wound care and antibiotic for a total of 10 days -Continue with the wound care as an outpatient Chronic diastolic heart failure (EF 60%, TTE 2021) - (+) BL lower leg edema Received Lasix intravenously 40 mg day before yesterday that is 01/03/2023 usual Spironolactone resumed Has been getting Lasix 40 mg twice daily since yesterday 01/04/2023. Leg swelling improved and the wound is looking better too We will check PRP and continue IV Lasix for now We will give him usual doses of Lasix on discharge A-fib/borderline TBS on Eliquis hx PVD chronic anemia, hemoglobin at baseline Steroid-induced hyperglycemia - A1c 6.4 past tobacco abuse DVT prophylaxis. Eliquis Full code Disposition lives at home PT - recommend return home patient prefers to return home upon discharge will need 2 step O2 test upon discharge Admission and Anticipated Discharge Date Admission Date: December 31, 2022 Subjective 01/04/2023 The patient was seen and examined in medical telemetry unit He has been complaining of swelling of the legs without any shortness of breath or palpitation His leg wounds are better He is getting physical therapy and has been moving around in the room without an y difficulties 01/05/2023 The patient was seen and examined in medical telemetry unit He has been feeling much better and denies any cough and/or shortness of breath at rest His leg swelling has improved and the wound seems to be reasonably improving Denies any other significant symptoms 01/06/2023 The patient was seen and examined in medical telemetry unit He has been feeling much better and has been ambulating without any difficulties His legs are improved and the wound seems to be improving too He will be discharged home this afternoon Review of Systems Review of Systems: All systems reviewed and are unremarkable except as noted below Physical Exam Physical Exam: Sitting on a chair without any acute distress Constitutional: well developed, well nourished and + obese; not ill appearing Eyes: PERRL, conjunctivae normal, anicteric sclerae ENMT: external ear and nose normal, oropharynx normal Neck: trachea midline, no thyromegaly Respiratory: no respiratory distress Auscultation: + diminished lung sounds and + crackles (Minimal crackles at the bases) Cardiovascular: Rate/Rhythm: regular rate and regular rhythm; not tachycardic Heart Sounds: normal S1 and normal S2; no murmur Extremities: + edema (1+ edema bilaterally) Leg edema has improved significantly Gastrointestinal (Abdomen): Inspection/Auscultation: normal bowel sounds; abdomen not distended Percussion/Palpation: abdomen soft; abdomen nontender Musculoskeletal: No acute arthritis involving any of the joints Neurologic: normal touch/pain/proprioception and moves all extremities; no focal motor deficits Psychiatric: A+Ox3, euthymic affect Lymphatic: no cervical or axillary lymphadenopathy Results & Data Results & Data Vital Signs (Past 12 Hours) Vital Signs Temp Pulse Resp BP BP Pulse Ox O2 Del Method 01/06/23 08:00 36.5 C 73 16 111/66 93 Room Air 01/06/23 03:45 36.5 C 72 18 109/64 97 Room Air Laboratory Results [facility] 01/05/23 01/06/23 07:31 07:16 Sodium 134 L 137 Potassium 3.9 4.1 Chloride 101 100 Carbon Dioxide 24 30 BUN 39 H 37 H Creatinine 1.04 1.16 Glucose 92 85 Calcium 8.7 8.8 Medications Administered Current Inpatient Medications Acetaminophen (Acetaminophen 325 Mg Tab) 650 mg PO Q4H PRN PRN Reason: Pain or Fever Stop: 01/30/23 02:41 Last Admin: 01/03/23 20:51 Dose: 650 mg Apixaban (Apixaban 5 Mg Tablet) 5 mg PO BID [facility] Stop: 01/30/23 08:59 Last Admin: 01/06/23 08:40 Dose: 5 mg Doxycycline Hyclate (Doxycycline Hyclate 100 Mg Cap) 100 mg PO BID [facility] Stop: 01/07/23 20:59 Last Admin: 01/06/23 08:40 Dose: 100 mg Finasteride (Finasteride 5 Mg Tab) 5 mg PO DAILY [facility] Stop: 01/30/23 08:59 Last Admin: 01/06/23 08:40 Dose: 5 mg Fluticasone/Vilanterol (Fluticasone/Vilanterol 100/25mcg 14 Puffs/Inhaler) 1 puffs INH DAILY [facility] Stop: 01/30/23 08:59 Last Admin: 01/06/23 08:41 Dose: 1 puffs Furosemide (Furosemide 40 Mg/4 Ml Vial) 40 mg IV BIDM [facility] Stop: 02/03/23 16:59 Last Admin: 01/06/23 08:41 Dose: 40 mg Gabapentin (Gabapentin 300 Mg Cap) 300 mg PO BID [facility] Stop: 01/30/23 08:59 Last Admin: 01/06/23 08:40 Dose: 300 mg Guaifenesin (Guaifenesin Sugar Free 200 Mg/10 Ml Udc) 200 mg PO Q6H PRN PRN Reason: Cough Stop: 01/30/23 22:50 Last Admin: 01/01/23 20:05 Dose: 200 mg Promethazine HCl 6.25 mg/ (Sodium Chloride) 50.25 mls @ 201 mls/hr IV Q6H PRN PRN Reason: Nausea And Vomiting Stop: 01/30/23 02:41 Ipratropium [place] (Ipratropium [place] Neb Soln 0.02% 2.5 Ml Vial) 0.5 mg INH Q4R PRN PRN Reason: Shortness Of Breath Or Wheezing Stop: 02/01/23 09:28 Lactobacillus Acidophilus (Advanced Probiotic 1250 Mg Capsule) 2 cap PO DAILY [facility] Stop: 02/01/23 08:59 Last Admin: 01/06/23 08:40 Dose: 2 cap Levalbuterol HCl (Levalbuterol 1.25mg/0.5ml Neb) 1.25 mg INH Q4R PRN PRN Reason: Shortness Of Breath Or Wheezing Stop: 02/01/23 09:28 Levofloxacin (Levofloxacin 750 Mg Tab) 750 mg PO Q24H [facility] Stop: 01/10/23 11:59 Last Admin: 01/05/23 12:34 Dose: 750 mg Metoprolol Succinate (Metoprolol Succ 25mg Ext Rel Tab) 25 mg PO BID [facility] Stop: 01/30/23 08:59 Last Admin: 01/06/23 08:40 Dose: 25 mg Pantoprazole Sodium (Pantoprazole 40 Mg Tab) 40 mg PO DAILY [facility] Stop: 01/30/23 08:59 Last Admin: 01/06/23 08:41 Dose: 40 mg Spironolactone (Spironolactone 25 Mg Tab) 25 mg PO DAILY [facility] Stop: 01/30/23 08:59 Last Admin: 01/06/23 08:40 Dose: 25 mg Tramadol HCl (Tramadol Hcl 50 Mg Tablet) 25 mg PO Q4H PRN PRN Reason: Pain Stop: 01/30/23 02:41
[2023-01-06] MEDS: levoFLOXacin 750 MG TAB PO SCH (11:51)
--- NOTE | 2023-01-07 07:35 | Discharge Summary ---
Date of Service january 06, 2023 Admission HPI Per Admitting Provider History obtained from patient and records. Medical history significant for chronic diastolic heart failure (EF 60%, TTE 2021), A-fib/borderline TBS on Eliquis, PVD, PSVT, COPD/ILD as per records, chronic anemia (baseline hemoglobin 11-12), RA on chronic steroid Rx, BPH, past tobacco abuse. Last confinement July 2020 for chest pain attributed to GERD. No inducible ischemia on stress test. Patient has been sick for few days. Congestion with cough productive of junky sputum. Worsening shortness of breath. No chest pain complaints. Patient not sure about fluid retention. Denies aspiration. Patient completed COVID-19 vaccination. Zosyn administered at the ER for sepsis. 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 Admission Exam Per Admitting Provider Physical Exam: GENERAL: Slightly uncomfortable, slightly hard of hearing, episodic tachypnea SKIN: Pallor, warm HEENT: Partial alopecia, pale palpebral conjunctivae, no ptosis, dry buccal mucosa NECK : Supple, no tenderness CHEST : Decreased breath sounds, no tenderness HEART : RRR, no obvious murmurs ABDOMEN: Marked distention, nontender EXTREMITIES : Minimal LE swelling, no LE tenderness, no other conspicuous deformities noted NEUROLOGIC : Coherent, no facial asymmetry, slightly hard of hearing, no other gross focality Principal Diagnosis COPD exacerbation, bilateral basal pneumonia, left lower leg wound, chronic diastolic heart failure, atrial fibrillation Discharge Exam Sitting on a chair without any acute distress Constitutional well developed, well nourished and + obese; not ill appearing Eyes PERRL, conjunctivae normal, anicteric sclerae ENMT external ear and nose normal, oropharynx normal Neck trachea midline, no thyromegaly Respiratory no respiratory distress Auscultation: + diminished lung sounds and + crackles (Minimal crackles at the bases) Cardiovascular Rate/Rhythm: regular rate and regular rhythm; not tachycardic Heart Sounds: normal S1 and normal S2; no murmur Extremities: + edema (1+ edema bilaterally) Gastrointestinal (Abdomen) Inspection/Auscultation: normal bowel sounds; abdomen not distended Percussion/Palpation: abdomen soft; abdomen nontender Neurologic normal touch/pain/proprioception and moves all extremities; no focal motor deficits Psychiatric A+Ox3, euthymic affect Lymphatic no cervical or axillary lymphadenopathy Discharge Data Allergies Allergy/AdvReac Type Severity Reaction Status Date / Time No Known Allergies Allergy Verified 12/31/22 00:31 Ordered Studies 12/30/22 23:17 CT chest diagnostic wo con Stat 01/01/23 08:08 MRI Leg [MR lower leg LT wo con] Routine Hospital Course (1) COPD exacerbation: BILATERAL PNEUMONIA MILD COPD EXACERBATION Possible sepsis Immunocompromised patient History RA on chronic steroid Rx Blood cultures negative Sputum culture normal shahram Continue Cefepime --> changed to Levaquin PO today (abx day 6) Clinically much better and does not have any shortness of breath and or wheezing at rest Denies any cough and/or shortness of breath at rest or with minimal exertion Will finish the course of antibiotic for a total of 10 days Clinically much better and symptomatically improved LEFT LOWER LEG WOUNDS - sustained from being injured after leg hit logs - ongoing for 1 month now - Tib/fib xray: no osteo L LE MRI: no Osteomyelitis - wound culture: Coag neg staph - wound seems to be healing well - wound care consult - continue Doxycycline Day 6 -Wound has been looking better and there is no surrounding infection -Continue with the wound care and antibiotic for a total of 10 days -Continue with the wound care as an outpatient Chronic diastolic heart failure (EF 60%, TTE 2021) - (+) BL lower leg edema Received Lasix intravenously 40 mg day before yesterday that is 01/03/2023 usual Spironolactone resumed Has been getting Lasix 40 mg twice daily since yesterday 01/04/2023. Leg swelling improved and the wound is looking better too We will check PRP and continue IV Lasix for now We will give him usual doses of Lasix on discharge A-fib/borderline TBS on Eliquis hx PVD chronic anemia, hemoglobin at baseline Steroid-induced hyperglycemia - A1c 6.4 past tobacco abuse DVT prophylaxis. Eliquis Full code Disposition lives at home PT - recommend return home patient prefers to return home upon discharge will need 2 step O2 test upon discharge Total Time Total Time Spent Total Time Spent (In Minutes): 40 minutes Discharge Plan Discharge Items Patient Disposition: Home - Home Health Services Reason For Visit: SEPSIS Discharge Diagnosis: COPD exacerbation, bilateral basal pneumonia, left lower leg wound, chronic diastolic heart failure, atrial fibrillation Condition on Discharge: Fair Activity: Resume your previous activity Non-emergency contact: Primary Care Provider Call non-emergency contact if: you have any medication questions and your symptoms worsen Follow-up/Referrals: Colby Solorzano DO [Primary Care Provider] - (Date & Time 01/10/2023 1:00 PM Provider Colby Solorzano DO Department [facility] ) Diet: Heart Healthy Fluids: 1500ml (6 cups) Addtl Attending Provider Instructions: Please take precautions to avoid falls Take your medications as advised Try to keep your feet elevated while in bed and sleeping Please keep your leg wounds clean and dry Keep appointment with your healthcare providers Small dose of Lasix of 40 mg has been added to your medications to control the edema Pending Studies at Discharge: No Stand-Alone Forms: [employer], Smoking Cessation Medications and DC Order Prescriptions: New doxycycline hyclate 100 mg Capsule 100 mg PO BID Qty: 8 0RF levofloxacin 750 mg Tablet 750 mg PO Q24H Qty: 4 0RF furosemide [Lasix] 20 mg tablet 20 mg PO DAILY Qty: 30 0RF Lactobacillus acidoph-L. bifid 1 billion cell wafer 1 tab PO DAILY Qty: 14 0RF Rx Instructions: administer (preferably) with milk Continued prednisone 5 mg Tablet 5 mg PO DAILY spironolactone 25 mg Tablet 25 mg PO DAILY gabapentin 300 mg Capsule 300 mg PO BID finasteride 5 mg Tablet 5 mg PO DAILY cholecalciferol (vitamin D3) [Vitamin D3] 25 mcg (1,000 unit) Tablet 50 mcg PO DAILY apixaban 5 mg Tablet 5 mg PO BID pantoprazole 40 mg Tablet,Delayed Release (Dr/Ec) 40 mg PO DAILY metoprolol succinate 50 mg Tablet Extended Release 24 Hr 25 mg PO BID fluticasone propion-salmeterol [Advair Diskus] 250-50 mcg/dose Blister With Device 1 inh INHALATION BID Discharge Orders: Discharge Order (Routine); Ordered 01/06/23 Ordered By: Danette aCsarez Discharge Order- CHF (Routine); Ordered 01/06/23 Ordered By: Dantete Trent/Other Patient Handouts: Prediabetes, 5 Steps for Eating Healthier Admission Data Admit Date/Time: 12/31/22 01:03 Attending Provider: Danette Casarez Admit Provider: Devon Herrera Primary Care Provider: Colby Solorzano Other Providers: [facility] ; Gareth Newman Other Interventions: Discharge Summary Assessment (RN) Last Done: 01/06/23 14:16
== END 2023-01-06 14:45 | disposition home health service (06) | DRG 871 ==
LOC: ED 18:57 → 2N 12-31 01:03 → SUATTDRO 12-31 01:03 → 2N 12-31 01:36

== ENCOUNTER 2024-01-31 17:38 | Inpatient (IN) ==
--- NOTE | 2024-01-31 18:45 | XRay Report ---
XR chest 1V not portable HISTORY: Sepsis COMPARISON: Chest 12/30/2022. FINDINGS: No pneumothorax. The cardiac silhouette remains mildly enlarged. Chronic interstitial thick ening persists. Stable blunting of the costophrenic sulci with scattered calcified pleural plaques. T here there are new small upper lobe airspace opacities.. No acute fractures. Trace bilateral pleural effusions again noted. IMPRESSION: 1. There is a new small upper lobe airspace opacities. This likely represents a pneumonia. 2. Cardiomegaly and trace bilateral pleural effusions persist. 3. Calcified pleural plaques again noted. ACT 112: Negative or not required by law. Electronically signed by: Magnus Stephenson M.D. 01/31/2024 6:44 PM
[2024-01-31 20:12] LABS: Basophils # (auto) 0.02 K/uL (0.00-0.20); Basophils % (auto) 0.2 %; Eosinophils # (auto) 0.02 K/uL (0.00-0.50); Eosinophils % (auto) 0.2 %; Hematocrit (blood only) 35.6 % (42.0-52.0); Immature Granulocytes # (auto) 0.21 K/uL (0.01-0.20); Immature Granulocytes % (auto) 1.9 %; Mean Corpuscular Hemoglobin 35.2 pg (25.0-34.0); Mean Corpuscular Hgb Conc 33.7 g/dL (32.0-36.0); Mean Corpuscular Volume 104.4 fL (80.0-100.0); Mean Platelet Volume 12.4 fL (9.4-12.4); Monocytes # (auto) 0.81 K/uL (0.11-0.59); Monocytes % (auto) 7.3 %; Neutrophils % (auto) 81.4 %; Platelet Count 175 K/uL (130-400); RDW Coefficient of Variation 14.6 % (11.5-14.5); RDW Standard Deviation 55.2 fL (36.4-46.3); Red Blood Count 3.41 M/uL (4.70-6.10); White Blood Count 11.16 K/ul (4.8-10.8)
[2024-01-31 20:28] LABS: Albumin Globulin Ratio 1.5 (0.9-2); Albumin Level 4.1 gm/dl (3.4-5.0); BUN Creatinine Ratio 28.8 (10-20); Calcium 9.1 mg/dl (8.6-10.3); Creatinine Clr Calc Pharmacy 55.5 ml/min; Est GFR (African American) 72.3 ml/min; Est GFR (Non-African American) 62.4 ml/min; Globulin 2.8 gm/dl (2.5-4.0); Magnesium 2.2 mg/dl (1.7-2.4); Potassium 4.1 mmol/L (3.5-5.1); Total Protein 6.9 gm/dl (6.0-8.3)
[2024-01-31 20:35] LABS: Troponin I High Sensitivity 12.2 pg/ml (0-20)
[2024-01-31 20:41] LABS: INR 1.1 (0.9-1.1); Partial Thromboplastin Ratio 1.2; Partial Thromboplastin Time 34 Seconds (21-31)
[2024-01-31] MEDS: cefTRIAXone SODIUM 2,000 MG/50 ML BAG IV STA (21:23)
[2024-01-31 22:17] LABS: Appearance Urine Clear (Clear); Bilirubin Urine Negative (Negative); Blood Urine Negative (Negative); Color Urine Dark Yellow; Glucose Urine UA 2+ (Negative); Ketones Urine Negative (Negative); Leukocyte Esterase Urine Negative (Negative); Nitrite Urine Negative (Negative); Protein Urine Negative (Negative); Specific Gravity Urine 1.026 (1.000-1.030); Urobilinogen Urine Negative (Negative)
[2024-01-31] MEDS: SODIUM CHLORIDE 0.9% 1,000 ML IV ONE (22:36)
--- NOTE | 2024-01-31 23:11 | Ultrasound Report ---
Exam(s): US VENOUS RIGHT LOWER EXTREMITY EXAM: US Duplex Right Lower Extremity Veins CLINICAL HISTORY: Reason for exam: LLE swelling, redness. TECHNIQUE: Real-time duplex ultrasound scan of the right lower extremity veins integrating B-mode two-dimensional vascular structure, Doppler spectral analysis, color flow Doppler imaging and compression. COMPARISON: None. FINDINGS: Deep veins: Unremarkable. No DVT in the visualized common femoral, femoral, proximal deep femoral or popliteal veins. The veins demonstrate normal color flow, are normally compressible, with normal phasic flow and/or augmentation response. Superficial veins: Unremarkable. No thrombus in the visualized great saphenous vein. Soft tissues: Nonspecific edema along the calf region. No popliteal cyst. IMPRESSION: No ultrasonographic evidence of deep venous thrombosis involving the right lower extremity. Electronically signed by: Aida Dewitt MD 01/31/24 23:10 PM
--- NOTE | 2024-01-31 23:37 | History & Physical Report ---
Date of Service January 31, 2024 Assessment & Plan (1) Sepsis: Plan: 78-year-old male with past medical history significant for hyperlipidemia, steroid-induced hyperglycemia, diabetes not on any medications, history of pneumonia, history of SVT, history of chronic heart failure with preserved ejection fraction, longstanding persistent atrial fibrillation, aneurysm of ascending aorta, hypertension, BPH, osteoarthritis, cellulitis of right arm, polyneuropathy, history of rheumatoid arthritis who lives alone ambulates without support and son lives close by comes because of right lower extremity cellulitis and sepsis. Patient states since last 2 weeks his lower extremities is getting swollen. Lately developed redness. Has a chronic scab on his right salgaod which started to drain. Denies any fevers. Currently feeling chills. States having lot of pain in the lower extremities. Denies chest pain or shortness of breath. No cough. No headache. No dizziness. Vision is okay. No runny nose or sore throat. Appetite is okay. No difficulty swallowing. No nausea. No abdominal pain. Normal bowel and bladder movements. Hemodynamics okay currently. Sepsis Right lower extremity cellulitis Lactic acid 3 WBC 11 Afebrile Blood pressure is okay Gentle fluids Received IV Rocephin Will continue with Dapto and cefepime Follow response Follow the cultures Close monitor on telemetry Chronic diastolic CHF Chronic mild right-sided heart failure Getting fluids for sepsis Holding Lasix and spironolactone Monitor for volume overload closely Lower extremity edema rt > left Rt lower extremity doppler negative for dvt. on eliquis will monitor. Diabetes Not on meds Will place on sliding scale Diabetic diet Follow HbA1c History of atrial fibrillation History of SVT On metoprolol succinate On Eliquis Will monitor History of rheumatoid arthritis On prednisone 5 mg daily which be continued Close monitor BPH On finasteride Will monitor for any urinary retention Hyperlipidemia Hold Crestor while on Dapto DVT prophylaxis Eliquis Disposition Telemetry Full code History of Present Illness Chief Complaint: Right lower extremity cellulitis and sepsis Primary Care Provider: [facility] 78-year-old male with past medical history significant for hyperlipidemia, steroid-induced hyperglycemia, diabetes not on any medications, history of pneumonia, history of SVT, history of chronic heart failure with preserved ejection fraction, longstanding persistent atrial fibrillation, aneurysm of ascending aorta, hypertension, BPH, osteoarthritis, cellulitis of right arm, polyneuropathy, history of rheumatoid arthritis who lives alone ambulates without support and son lives close by comes because of right lower extremity cellulitis and sepsis. Patient states since last 2 weeks his lower extremities is getting swollen. Lately developed redness. Has a chronic scab on his right salgado which started to drain. Denies any fevers. Currently feeling chills. States having lot of pain in the lower extremities. Denies chest pain or shortness of breath. No cough. No headache. No dizziness. Vision is okay. No runny nose or sore throat. Appetite is okay. No difficulty swallowing. No nausea. No abdominal pain. Normal bowel and bladder movements. Hemodynamics okay currently. Past medical history. As mentioned above Past surgical history. Colonoscopy with biopsy. Dental surgery. Incision and drainage of the right elbow abscess/hematoma. Needle biopsy of spinal cord. Bilateral repair of inguinal hernia. Thoracotomy with biopsy of the right lung. Social history. Quit smoking in 1997. Smoked 1 pack a day for 30 years. No alcohol use. No drug use. Family history. Mother had breast cancer. Diabetes. Father had CAD. Hypertension. Sister has asthma. Brother has rheumatoid arthritis. Allergies Allergy/AdvReac Type Severity Reaction Status Date / Time No Known Allergies Allergy Verified 01/31/24 21:44 Home Medications Medication Instructions Recorded Confirmed Type finasteride 5 mg tablet 5 mg PO DAILY 04/25/20 01/31/24 History gabapentin 300 mg capsule 300 mg PO BID 04/25/20 01/31/24 History prednisone 5 mg tablet 5 mg PO DAILY 04/25/20 01/31/24 History spironolactone 25 mg tablet 25 mg PO DAILY 04/25/20 01/31/24 History cholecalciferol (vitamin D3) 25 50 mcg PO DAILY 07/30/20 01/31/24 History mcg (1,000 unit) tablet (Vitamin D3) apixaban 5 mg tablet 5 mg PO BID 12/31/22 01/31/24 History metoprolol succinate 50 mg 25 mg PO BID 12/31/22 01/31/24 History tablet,extended release 24 hr pantoprazole 40 mg tablet,delayed 40 mg PO DAILY 12/31/22 01/31/24 History release furosemide 20 mg tablet (Lasix) 20 mg PO DAILY #30 tabs 01/06/23 01/31/24 Rx cyanocobalamin (vitamin B-12) 1,000 mcg PO DAILY 01/31/24 01/31/24 History 1,000 mcg tablet (Vitamin B-12) fluticasone 500 mcg-salmeterol 50 1 inh inhalation BID 01/31/24 01/31/24 History mcg/dose blistr powdr for inhalation (Wixela Inhub) rosuvastatin 20 mg tablet (Crestor) 20 mg PO DAILY 01/31/24 01/31/24 History Past Med/Surg History Medical History BPH (benign prostatic hyperplasia) Ascending aorta enlargement Hx of supraventricular tachycardia COPD (chronic obstructive pulmonary disease) Rheumatoid arthritis Surgical History History of thoracotomy H/O inguinal hernia repair Family History Father Heart disease Social History Smoking Status: Former smoker Tobacco Type: Cigarettes Cigarettes Per Day: 1 PPD; Smoking End Date: "years ago"; Second Hand Exposure: No; Do You Dip or Chew Tobacco: No; Hx Alcohol Use: No Hx Substance Use: No Preferred Language: Surinamese Communication Ability: Effective Reading Efficiency Course Director Required: No Beliefs That Will Affect Care: None Current Living Situation: Alone Current Living Situation Comment: Lives alone, son lives in close proximity Other Information That Helps Us Care for You: No Feels Safe at Home: Yes Safety Concerns: Feels Safe At This Time Assistive Devices: Denture - Upper, Denture - Lower and Glasses Review of Systems 2 Review of Systems: All systems reviewed & are unremarkable except as noted in HPI & below Physical Exam Physical Exam: General- Not in distress Head- atraumatic Eyes- PERRL. ENT- oropharynx clear Neck- supple, no JVD. Lungs- clear to auscultation no wheezing or crackles. Heart- regular rhythm; no murmur, no gallop. Abdomen- normal bowel sounds, soft, nontender, no distension. Extremities- b/l lower extremity edema present RT>Lt. Rt lower extremity erythematous. Mild drainage seen from scab on right salgado. Neuro- alert, oriented ; PERRL, ; no facial palsy; no dysarthria; moves extremities. Results & Data Results & Data Vital Signs (Past 12 Hours) Vital Signs Temp Pulse Pulse Resp BP BP Pulse Ox 01/31/24 23:00 80 20 126/87 98 01/31/24 21:58 78 20 147/111 H 97 01/31/24 21:09 100 01/31/24 21:09 01/31/24 21:08 92 H 20 155/86 H 100 01/31/24 21:07 87 01/31/24 19:59 98 H 18 124/84 98 01/31/24 17:38 18 01/31/24 17:38 36.6 C 108 H 18 140/77 98 O2 Del Method 01/31/24 23:00 Room Air 01/31/24 21:58 Room Air 01/31/24 21:09 Room Air 01/31/24 21:09 Room Air 01/31/24 21:08 Room Air 01/31/24 21:07 01/31/24 19:59 Room Air 01/31/24 17:38 01/31/24 17:38 Room Air Diagnostic Findings Laboratory Results WBC 11.16 K/ul (4.8-10.8) H 01/31/24 19:20 RBC 3.41 M/uL (4.70-6.10) L 01/31/24 19:20 Hgb 12.0 g/dl (14.0-18.0) L 01/31/24 19:20 Hct 35.6 % (42.0-52.0) L 01/31/24 19:20 MCV 104.4 fL (80.0-100.0) H 01/31/24 19:20 MCH 35.2 pg (25.0-34.0) H 01/31/24 19:20 MCHC 33.7 g/dL (32.0-36.0) 01/31/24 19:20 RDW Std Deviation 55.2 fL (36.4-46.3) H 01/31/24 19:20 RDW Coeff of Roxanna 14.6 % (11.5-14.5) H 01/31/24 19:20 Plt Count 175 K/uL (130-400) 01/31/24 19:20 MPV 12.4 fL (9.4-12.4) 01/31/24 19:20 Immature Gran % (Auto) 1.9 % 01/31/24 19:20 Neut % (Auto) 81.4 % 01/31/24 19:20 Lymph % (Auto) 9.0 % 01/31/24 19:20 [place] % (Auto) 7.3 % 01/31/24 19:20 Eos % (Auto) 0.2 % 01/31/24 19:20 Baso % (Auto) 0.2 % 01/31/24 19:20 Neut # (Auto) 9.10 K/uL (1.40-6.50) H 01/31/24 19:20 Lymph # (Auto) 1.00 K/uL (1.20-3.40) L 01/31/24 19:20 [place] # (Auto) 0.81 K/uL (0.11-0.59) H 01/31/24 19:20 Eos # (Auto) 0.02 K/uL (0.00-0.50) 01/31/24 19:20 Baso # (Auto) 0.02 K/uL (0.00-0.20) 01/31/24 19:20 Immature Gran # (Auto) 0.21 K/uL (0.01-0.20) H 01/31/24 19:20 PT 12.0 Seconds (9.0-12.0) 01/31/24 19:20 INR 1.1 (0.9-1.1) 01/31/24 19:20 APTT 34 Seconds (21-31) H 01/31/24 19:20 PTT Ratio 1.2 01/31/24 19:20 Sodium 135 mmol/L (136-145) L 01/31/24 19:20 Potassium 4.1 mmol/L (3.5-5.1) 01/31/24 19:20 Chloride 101 mmol/L (98-107) 01/31/24 19:20 Carbon Dioxide 24 mmol/L (21-32) 01/31/24 19:20 Anion Gap 10 (3-11) 01/31/24 19:20 BUN 32 mg/dl (6-23) H 01/31/24 19:20 Creatinine 1.11 mg/dl (0.6-1.4) 01/31/24 19:20 Est Cr Clr Drug Dosing 55.5 ml/min 01/31/24 19:20 Est GFR ( Amer) 72.3 ml/min 01/31/24 19:20 Est GFR (Non-Af Amer) 62.4 ml/min 01/31/24 19:20 BUN/Creatinine Ratio 28.8 (10-20) H 01/31/24 19:20 Glucose 242 mg/dl (70-99(Fasting)) H 01/31/24 19:20 Lactate 3.0 mmol/L (0.4-2.0) H* 01/31/24 21:16 Calcium 9.1 mg/dl (8.6-10.3) 01/31/24 19:20 Magnesium 2.2 mg/dl (1.7-2.4) 01/31/24 19:20 Total Bilirubin 1.0 mg/dl (0.2-1.0) 01/31/24 19:20 AST 23 U/L (13-39) 01/31/24 19:20 ALT 33 U/L (7-52) 01/31/24 19:20 Alkaline Phosphatase 41 U/L (34-104) 01/31/24 19:20 Troponin I High Sens 12.2 pg/ml (0-20) 01/31/24 19:20 Total Protein 6.9 gm/dl (6.0-8.3) 01/31/24 19:20 Albumin 4.1 gm/dl (3.4-5.0) 01/31/24 19:20 Globulin 2.8 gm/dl (2.5-4.0) 01/31/24 19:20 Albumin/Globulin Ratio 1.5 (0.9-2) 01/31/24 19:20 Procalcitonin 0.08 ng/ml (0-0.5) 01/31/24 19:20 Urine Color Dark Yellow 01/31/24 21:53 Urine Appearance Clear (Clear) 01/31/24 21:53 Urine pH 5.0 (4.5-7.5) 01/31/24 21:53 Ur Specific [place] 1.026 (1.000-1.030) 01/31/24 21:53 Urine Protein Negative (Negative) 01/31/24 21:53 Urine Glucose (UA) 2+ (Negative) H 01/31/24 21:53 Urine Ketones Negative (Negative) 01/31/24 21:53 Urine Blood Negative (Negative) 01/31/24 21:53 Urine Nitrite Negative (Negative) 01/31/24 21:53 Urine Bilirubin Negative (Negative) 01/31/24 21:53 Urine Urobilinogen Negative (Negative) 01/31/24 21:53 Ur Leukocyte Esterase Negative (Negative) 01/31/24 21:53 Impressions Chest X-Ray 01/31/24 18:14 XR chest 1V not portable HISTORY: Sepsis COMPARISON: Chest 12/30/2022. FINDINGS: No pneumothorax. The cardiac silhouette remains mildly enlarged. Chronic interstitial thickening persists. Stable blunting of the costophrenic sulci with scattered calcified pleural plaques. There there are new small upper lobe airspace opacities.. No acute fractures. Trace bilateral pleural effusions again noted. IMPRESSION: 1. There is a new small upper lobe airspace opacities. This likely represents a pneumonia. 2. Cardiomegaly and trace bilateral pleural effusions persist. 3. Calcified pleural plaques again noted. ACT 112: Negative or not required by law. Electronically signed by: Magnus Stephenson M.D. 01/31/2024 6:44 PM Venous Doppler Study 01/31/24 21:07 Exam(s): US VENOUS RIGHT LOWER EXTREMITY EXAM: US Duplex Right Lower Extremity Veins CLINICAL HISTORY: Reason for exam: LLE swelling, redness. TECHNIQUE: Real-time duplex ultrasound scan of the right lower extremity veins integrating B-mode two-dimensional vascular structure, Doppler spectral analysis, color flow Doppler imaging and compression. COMPARISON: None. FINDINGS: Deep veins: Unremarkable. No DVT in the visualized common femoral, femoral, proximal deep femoral or popliteal veins. The veins demonstrate normal color flow, are normally compressible, with normal phasic flow and/or augmentation response. Superficial veins: Unremarkable. No thrombus in the visualized great saphenous vein. Soft tissues: Nonspecific edema along the calf region. No popliteal cyst. IMPRESSION: No ultrasonographic evidence of deep venous thrombosis involving the right lower extremity. Electronically signed by: Aida Dewitt MD 01/31/24 23:10 PM ECG Additional Comments: ECG. Atrial flutter with variable AV block with a rate of 94. Nonspecific ST abnormalities. Code Status & VTE Plan VTE Prophylaxis Plan VTE Prophylaxis will be ordered: Yes
--- NOTE | 2024-02-01 00:30 | Emergency Department Note ---
Impression & Plan Bilateral cellulitis of lower leg, Bilateral edema of lower extremity, History of COPD, History of CHF (congestive heart failure) ED Provider Note CHIEF COMPLAINT: lower leg swelling, right leg infection HISTORY OF PRESENT ILLNESS: This 78-year-old male patient past medical history of COPD, tachybradycardia syndrome, SVT, RA presents to the emergency department with complaints of right lower extremity redness and discomfort, and swelling of both lower extremities. He has noticed some drainage from the right lower extremity. He has not had any fever. REVIEW OF SYSTEMS: A review of systems was performed with positives and pertinent negatives listed in the history of present illness. 10 systems were reviewed and are otherwise negative. ALLERGIES: see below MEDICATIONS: see below PMH: see below SOCIAL HISTORY: see below DDx: Cellulitis, DVT, dependent edema/congestive heart failure, malignancy, among others. PHYSICAL EXAM: Vital signs reviewed. General: Well-appearing 78-year-old male, in no significant distress. HEENT: No scleral icterus, PERRLA, neck supple. moist mucous membranes. Cardiovascular: Regular rate and rhythm, no extra sounds. Pulmonary: Clear to auscultation bilaterally, normal work of breathing. Abdomen: Soft, nontender, nondistended, positive bowel sounds. Musculoskeletal: Bilateral lower extremities with erythema and pitting edema, 3+. Right lower extremity with postsurgical chronic wound, deeper erythema, warmth and some serous drainage Neurologic: Patient awake alert and oriented x 3, speech is clear Skin: Warm, dry, see above. EMERGENCY DEPARTMENT COURSE/MDM: This patient was evaluated and appeared to be in no significant distress. Patient was initially examined in the subwait after several hours due to high volumes and acuity in the emergency department. IV access was obtained and laboratory work was drawn. Laboratory work significant for mild leukocytosis of 11,000, lactate of 3.0. Patient was hydrated with normal saline solution, which was initially held secondary to his history of heart failure and bilateral lower extremity edema. The patient was given 2 g of IV ceftriaxone. Ultrasound of the right lower extremity was performed and is negative. Repeat lactate was again 3.0. Case was discussed with the hospitalist service to evaluate the patient for admission and further management. MONITORING: An order for cardiac monitoring was placed and the patient is noted to be in and atrial flutter with variable AV block at 94 beats per minute. RADIOLOGY: chest x-ray to my interpretation reveals no evidence of congestive heart failure, small bilateral pleural effusions and changes consistent with COPD.. EKG: To my interpretation reveals atrial flutter with variable AV block. Nonspecific ST change. QTc of 412. when compared to previous dated December 30, 2022 atrial fibrillation is new. DISPOSITION: Admission Past Med/Surg History Medical History (Updated 02/05/24 @ 05:36 by Chanelle Maddox MD) BPH (benign prostatic hyperplasia) Ascending aorta enlargement Hx of supraventricular tachycardia COPD (chronic obstructive pulmonary disease) Rheumatoid arthritis Surgical History History of thoracotomy H/O inguinal hernia repair Family History Father Heart disease Social History Smoking Status: Former smoker Tobacco Type: Cigarettes Cigarettes Per Day: 1 PPD; Smoking End Date: "years ago"; Second Hand Exposure: No; Do You Dip or Chew Tobacco: No; Hx Alcohol Use: No Hx Substance Use: No Preferred Language: Occitan Communication Ability: Effective Flute Grinder Required: No Beliefs That Will Affect Care: None Current Living Situation: Alone Current Living Situation Comment: Lives alone, son lives in close proximity Other Information That Helps Us Care for You: No Feels Safe at Home: Yes Safety Concerns: Feels Safe At This Time Assistive Devices: None Allergies Allergies Allergy/AdvReac Type Severity Reaction Status Date / Time No Known Allergies Allergy Verified 01/31/24 21:44 Home Meds Home Medications Medication Instructions Recorded Confirmed finasteride 5 mg tablet 5 mg PO DAILY 04/25/20 01/31/24 gabapentin 300 mg capsule 300 mg PO BID 04/25/20 01/31/24 prednisone 5 mg tablet 5 mg PO DAILY 04/25/20 01/31/24 spironolactone 25 mg tablet 25 mg PO DAILY 04/25/20 01/31/24 cholecalciferol (vitamin D3) 25 50 mcg PO DAILY 07/30/20 01/31/24 mcg (1,000 unit) tablet (Vitamin D3) apixaban 5 mg tablet 5 mg PO BID 12/31/22 01/31/24 metoprolol succinate 50 mg 25 mg PO BID 12/31/22 01/31/24 tablet,extended release 24 hr pantoprazole 40 mg tablet,delayed 40 mg PO DAILY 12/31/22 01/31/24 release cyanocobalamin (vitamin B-12) 1,000 mcg PO DAILY 01/31/24 01/31/24 1,000 mcg tablet (Vitamin B-12) fluticasone 500 mcg-salmeterol 50 1 inh inhalation BID 01/31/24 01/31/24 mcg/dose blistr powdr for inhalation (Wixela Inhub) rosuvastatin 20 mg tablet (Crestor) 20 mg PO DAILY 01/31/24 01/31/24 Previous Rx's Medication Instructions Recorded furosemide 20 mg tablet (Lasix) 20 mg PO DAILY #30 tabs 01/06/23 Results & Data (ED) Vital Signs Vital Signs - 24 hr 01/31/24 17:38 01/31/24 17:38 01/31/24 19:59 Temperature 36.6 C Temperature Source Temporal Artery Scan Pulse Rate 108 H Pulse Rate [Left Finger] 98 H Pulse Rate from SpO2 Sensor Respiratory Rate 18 18 18 Respiratory Effort / Characteristics Non-Labored Respiratory Depth Normal Respiratory Pattern Blood Pressure 140/77 Blood Pressure [Left Arm] 124/84 Blood Pressure Mean 98 Blood Pressure Mean [Left Arm] 97 Blood Pressure Position [Left Arm] Sitting Pulse Oximetry 98 98 Oxygen Delivery Method Room Air Room Air Sepsis Recent Fever Within 48 Hours No Sepsis New/Unexplained Change in Mental Status N/A Sepsis Action Taken by Nursing No Action Required 01/31/24 21:07 01/31/24 21:08 01/31/24 21:09 Temperature Temperature Source Pulse Rate 87 Pulse Rate [Left Finger] 92 H Pulse Rate from SpO2 Sensor Respiratory Rate 20 Respiratory Effort / Characteristics Non-Labored Spontaneous Respiratory Depth Normal Respiratory Pattern Regular Blood Pressure Blood Pressure [Left Arm] 155/86 H Blood Pressure Mean Blood Pressure Mean [Left Arm] 109 Blood Pressure Position [Left Arm] Semi-fowlers Pulse Oximetry 100 Oxygen Delivery Method Room Air Room Air Sepsis Recent Fever Within 48 Hours Sepsis New/Unexplained Change in Mental Status Sepsis Action Taken by Nursing 01/31/24 21:09 01/31/24 21:58 01/31/24 23:00 Temperature Temperature Source Pulse Rate 80 Pulse Rate [Left Finger] 78 Pulse Rate from SpO2 Sensor Respiratory Rate 20 20 Respiratory Effort / Characteristics Non-Labored Spontaneous Respiratory Depth Normal Respiratory Pattern Regular Blood Pressure 126/87 Blood Pressure [Left Arm] 147/111 H Blood Pressure Mean 100 Blood Pressure Mean [Left Arm] 123 Blood Pressure Position [Left Arm] Semi-fowlers Pulse Oximetry 100 97 98 Oxygen Delivery Method Room Air Room Air Room Air Sepsis Recent Fever Within 48 Hours Sepsis New/Unexplained Change in Mental Status Sepsis Action Taken by Nursing 01/31/24 23:12 02/01/24 00:00 Temperature Temperature Source Pulse Rate 83 Pulse Rate [Left Finger] Pulse Rate from SpO2 Sensor 84 Respiratory Rate 19 Respiratory Effort / Characteristics Non-Labored Spontaneous Respiratory Depth Respiratory Pattern Blood Pressure 125/87 Blood Pressure [Left Arm] Blood Pressure Mean 99 Blood Pressure Mean [Left Arm] Blood Pressure Position [Left Arm] Pulse Oximetry 95 Oxygen Delivery Method Room Air Sepsis Recent Fever Within 48 Hours Sepsis New/Unexplained Change in Mental Status Sepsis Action Taken by Prison Medications Current Medication List: was personally reviewed by me Laboratory Data Attestation: I reviewed the patient's lab results. 02/05/24 02:54 02/05/24 02:54 Lab Results 01/31/24 01/31/24 01/31/24 Range/Units 19:20 21:16 21:53 WBC 11.16 H (4.8-10.8) K/ul RBC 3.41 L (4.70-6.10) M/uL Hgb 12.0 L (14.0-18.0) g/dl Hct 35.6 L (42.0-52.0) % MCV 104.4 H (80.0-100.0) fL MCH 35.2 H (25.0-34.0) pg MCHC 33.7 (32.0-36.0) g/dL RDW Std Deviation 55.2 H (36.4-46.3) fL RDW Coeff of Roxanna 14.6 H (11.5-14.5) % Plt Count 175 (130-400) K/uL MPV 12.4 (9.4-12.4) fL Immature Gran % (Auto) 1.9 % Neut % (Auto) 81.4 % Lymph % (Auto) 9.0 % [place] % (Auto) 7.3 % Eos % (Auto) 0.2 % Baso % (Auto) 0.2 % Neut # (Auto) 9.10 H (1.40-6.50) K/uL Lymph # (Auto) 1.00 L (1.20-3.40) K/uL [place] # (Auto) 0.81 H (0.11-0.59) K/uL Eos # (Auto) 0.02 (0.00-0.50) K/uL Baso # (Auto) 0.02 (0.00-0.20) K/uL Immature Gran # (Auto) 0.21 H (0.01-0.20) K/uL PT 12.0 (9.0-12.0) Seconds INR 1.1 (0.9-1.1) APTT 34 H (21-31) Seconds PTT Ratio 1.2 Sodium 135 L (136-145) mmol/L Potassium 4.1 (3.5-5.1) mmol/L Chloride 101 (98-107) mmol/L Carbon Dioxide 24 (21-32) mmol/L Anion Gap 10 (3-11) BUN 32 H (6-23) mg/dl Creatinine 1.11 (0.6-1.4) mg/dl Est Cr Clr Drug Dosing 55.5 ml/min Est GFR ( Amer) 72.3 ml/min Est GFR (Non-Af Amer) 62.4 ml/min BUN/Creatinine Ratio 28.8 H (10-20) Glucose 242 H (70-99(Fasting)) mg/dl Lactate 3.0 H* 3.0 H* (0.4-2.0) mmol/L Calcium 9.1 (8.6-10.3) mg/dl Magnesium 2.2 (1.7-2.4) mg/dl Total Bilirubin 1.0 (0.2-1.0) mg/dl AST 23 (13-39) U/L ALT 33 (7-52) U/L Alkaline Phosphatase 41 (34-104) U/L Troponin I High Sens 12.2 (0-20) pg/ml Total Protein 6.9 (6.0-8.3) gm/dl Albumin 4.1 (3.4-5.0) gm/dl Globulin 2.8 (2.5-4.0) gm/dl Albumin/Globulin Ratio 1.5 (0.9-2) Procalcitonin 0.08 (0-0.5) ng/ml Urine Color Dark Yellow Urine Appearance Clear (Clear) Urine pH 5.0 (4.5-7.5) Ur Specific [place] 1.026 (1.000-1.030) Urine Protein Negative (Negative) Urine Glucose (UA) 2+ H (Negative) Urine Ketones Negative (Negative) Urine Blood Negative (Negative) Urine Nitrite Negative (Negative) Urine Bilirubin Negative (Negative) Urine Urobilinogen Negative (Negative) Ur Leukocyte Esterase Negative (Negative) Administered Medications Acetaminophen (Acetaminophen 325 Mg Tab) 650 mg PO Q4H PRN PRN Reason: Pain or Fever Stop: 03/02/24 01:55 Last Admin: 02/04/24 22:26 Dose: 650 mg Documented By: AYLEEN Apixaban (Apixaban 5 Mg Tablet) 5 mg PO BID [facility] Stop: 03/02/24 08:59 Last Admin: 02/04/24 20:25 Dose: 5 mg Documented By: Admin: 02/04/24 08:33 Dose: 5 mg Documented By: Admin: 02/03/24 21:57 Dose: 5 mg Documented By: Re Admin: 02/03/24 09:02 Dose: 5 mg Documented By: Admin: 02/02/24 19:48 Dose: 5 mg Documented By: Admin: 02/02/24 07:48 Dose: 5 mg Documented By: Admin: 02/01/24 20:34 Dose: 5 mg Documented By: Admin: 02/01/24 08:22 Dose: 5 mg Documented By: GABRIEL Cyanocobalamin (Cyanocobalamin (B-12) 500 Mcg Tablet) 1,000 mcg PO DAILY STEPHEN Stop: 03/02/24 08:59 Last Admin: 02/04/24 08:32 Dose: 1,000 mcg Documented By: Admin: 02/03/24 09:02 Dose: 1,000 mcg Documented By: Admin: 02/02/24 07:48 Dose: 1,000 mcg Documented By: Admin: 02/01/24 08:22 Dose: 1,000 mcg Documented By: GABRIEL Finasteride (Finasteride 5 Mg Tab) 5 mg PO DAILY STEPHEN Stop: 03/02/24 08:59 Last Admin: 02/04/24 08:32 Dose: 5 mg Documented By: Admin: 02/03/24 09:03 Dose: 5 mg Documented By: Admin: 02/02/24 07:49 Dose: 5 mg Documented By: Admin: 02/01/24 08:22 Dose: 5 mg Documented By: GABRIEL Fluticasone/Vilanterol (Fluticasone/Vilanterol 200/25mcg 14 Puffs/Inhaler) 1 puffs INH DAILY STEPHEN Stop: 03/02/24 08:59 Last Admin: 02/04/24 08:29 Dose: 1 puffs Documented By: Admin: 02/03/24 09:02 Dose: 1 puffs Documented By: Admin: 02/02/24 07:50 Dose: 1 puffs Documented By: Admin: 02/01/24 08:25 Dose: 1 puffs Documented By: GABRIEL Gabapentin (Gabapentin 300 Mg Cap) 300 mg PO BID STEPHEN Stop: 03/02/24 08:59 Last Admin: 02/04/24 20:26 Dose: 300 mg Documented By: Admin: 02/04/24 08:31 Dose: 300 mg Documented By: Admin: 02/03/24 21:58 Dose: 300 mg Documented By: [id number] Admin: 02/03/24 09:02 Dose: 300 mg Documented By: Admin: 02/02/24 19:49 Dose: 300 mg Documented By: Admin: 02/02/24 07:49 Dose: 300 mg Documented By: Admin: 02/01/24 20:34 Dose: 300 mg Documented By: Admin: 02/01/24 08:22 Dose: 300 mg Documented By: GABRIEL Cefepime HCl 2,000 mg/ Syringe 20 mls @ 5 mls/min IV Q12H STEPHEN; Protocol Stop: 02/08/24 08:59 Last Admin: 02/04/24 21:40 Dose: 5 mls/min Documented By: Admin: 02/04/24 08:29 Dose: 5 mls/min Documented By: Admin: 02/03/24 22:00 Dose: 5 mls/min Documented By: [id number] Admin: 02/03/24 09:01 Dose: 5 mls/min Documented By: Admin: 02/02/24 19:51 Dose: 5 mls/min Documented By: Admin: 02/02/24 07:50 Dose: 5 mls/min Documented By: Admin: 02/01/24 20:34 Dose: 5 mls/min Documented By: Admin: 02/01/24 08:21 Dose: 5 mls/min Documented By: GABRIEL Bumetanide 1 mg/ Syringe 4 mls @ 4 mls/min IV DAILY STEPHEN Stop: 03/05/24 08:59 Last Admin: 02/04/24 08:29 Dose: 4 mls/min Documented By: DOMINGO Insulin Aspart (Insulin Aspart Per Unit Charge) 0 units SC ACHS STEPHEN Stop: 03/02/24 07:29 Last Admin: 02/04/24 20:42 Dose: 1 units Documented By: AYLEEN Co-signed By: SLIME Admin: 02/04/24 17:19 Dose: 1 units Documented By: DOMINGO Co-signed By: ROGELIO Admin: 02/04/24 12:32 Dose: 2 units Documented By: DOMINGO Co-signed By: ROSALIND Admin: 02/04/24 08:28 Dose: Not Given Documented By: Admin: 02/03/24 22:32 Dose: Not Given Documented By: [id number] Admin: 02/03/24 17:23 Dose: 2 units Documented By: SOUTH Co-signed By: RAFAEL Admin: 02/03/24 12:27 Dose: 2 units Documented By: SOUTH Co-signed By: PRINCESS Admin: 02/03/24 09:12 Dose: 3 units Documented By: TMP Co-signed By: RICHARD Admin: 02/02/24 19:45 Dose: 4 units Documented By: SUMAN Co-signed By: CF Admin: 02/02/24 18:45 Dose: Not Given Documented By: Admin: 02/02/24 12:09 Dose: 2 units Documented By: MTP Co-signed By: WS Admin: 02/02/24 07:46 Dose: Not Given Documented By: Admin: 02/01/24 20:35 Dose: Not Given Documented By: Admin: 02/01/24 16:41 Dose: Not Given Documented By: RICHARD(2) Co-signed By: HECTOR Admin: 02/01/24 14:11 Dose: 3 units Documented By: LYNDAK Co-signed By: LIMA Admin: 02/01/24 10:07 Dose: Not Given Documented By: LYNDAK Co-signed By: NRB Metoprolol Succinate (Metoprolol Succ 50mg Ext Rel Tab) 50 mg PO BID STEPHEN Stop: 03/04/24 08:59 Last Admin: 02/04/24 20:26 Dose: 50 mg Documented By: Admin: 02/04/24 08:31 Dose: 50 mg Documented By: Admin: 02/03/24 21:58 Dose: 50 mg Documented By: [id number] Admin: 02/03/24 09:01 Dose: 50 mg Documented By: SOUTH Pantoprazole Sodium (Pantoprazole 40 Mg Tab) 40 mg PO DAILY STEPHEN Stop: 03/02/24 08:59 Last Admin: 02/04/24 08:33 Dose: 40 mg Documented By: Admin: 02/03/24 09:03 Dose: 40 mg Documented By: Admin: 02/02/24 07:49 Dose: 40 mg Documented By: Admin: 02/01/24 08:22 Dose: 40 mg Documented By: GABRIEL Potassium Chloride (Potassium Chloride Crtab 20 Meq Tabcr) 40 meq PO BID STEPHEN Stop: 03/05/24 08:59 Last Admin: 02/04/24 20:27 Dose: 40 meq Documented By: Admin: 02/04/24 08:31 Dose: 40 meq Documented By: DOMINGO Prednisone (Prednisone 5 Mg Tab) 5 mg PO DAILY STEPHEN Stop: 03/02/24 08:59 Last Admin: 02/04/24 08:29 Dose: 5 mg Documented By: Admin: 02/03/24 09:02 Dose: 5 mg Documented By: Admin: 02/02/24 07:48 Dose: 5 mg Documented By: Admin: 02/01/24 08:22 Dose: 5 mg Documented By: GABRIEL Rosuvastatin Calcium (Rosuvastatin Calcium 20 Mg Tab) 20 mg PO DAILY STEPHEN Stop: 03/04/24 08:59 Last Admin: 02/04/24 08:30 Dose: 20 mg Documented By: Admin: 02/03/24 09:17 Dose: 20 mg Documented By: SOUTH Spironolactone (Spironolactone 25 Mg Tab) 25 mg PO DAILY STEPHEN Stop: 03/04/24 08:59 Last Admin: 02/04/24 08:30 Dose: 25 mg Documented By: Admin: 02/03/24 09:18 Dose: 25 mg Documented By: SOUTH Vitamin D (Cholecalciferol 25 Mcg (1000 Units) Tab) 50 mcg PO DAILY STEPHEN Stop: 03/02/24 08:59 Last Admin: 02/04/24 08:30 Dose: 50 mcg Documented By: Admin: 02/03/24 09:01 Dose: 50 mcg Documented By: Admin: 02/02/24 07:49 Dose: 50 mcg Documented By: Admin: 02/01/24 08:22 Dose: 50 mcg Documented By: GABRIEL Discontinued Medications Cefepime HCl (Cefepime 2,000 Mg/20 Ml Vial) Confirm Administered Dose 2,000 mg .ROUTE .STK-MED ONE Stop: 02/01/24 08:20 Last Admin: 02/01/24 08:22 Dose: Not Given Documented By: GABRIEL Furosemide (Furosemide 20 Mg Tab) 20 mg PO BID17 STEPHEN Stop: 03/02/24 16:59 Last Admin: 02/02/24 18:46 Dose: 20 mg Documented By: Admin: 02/02/24 07:49 Dose: 20 mg Documented By: Admin: 02/01/24 16:57 Dose: 20 mg Documented By: RICHARD(2) Furosemide (Furosemide 40 Mg Tab) 40 mg PO BID17 STEPHEN Stop: 03/04/24 08:59 Last Admin: 02/03/24 17:23 Dose: 40 mg Documented By: Admin: 02/03/24 09:17 Dose: 40 mg Documented By: TMP Ceftriaxone Sodium (Rocephin) 2,000 mg in 50 mls @ 100 mls/hr IV NOW STA Stop: 01/31/24 21:36 Last Infusion: 01/31/24 21:55 Dose: Infused Documented By: Admin: 01/31/24 21:23 Dose: 100 mls/hr Documented By: JOVON Sodium Chloride (Nss) 1,000 mls @ 999 mls/hr IV .Q1H1M ONE Stop: 01/31/24 22:49 Last Infusion: 01/31/24 23:19 Dose: Infused Documented By: Admin: 01/31/24 22:36 Dose: 999 mls/hr Documented By: JOVON Sodium Chloride (Nss) 1,000 mls @ 100 mls/hr IV .Q10H STEPHEN Stop: 02/01/24 21:55 Last Infusion: 02/01/24 20:59 Dose: Infused Documented By: Admin: 02/01/24 14:01 Dose: 100 mls/hr Documented By: Infusion: 02/01/24 13:56 Dose: Infused Documented By: Admin: 02/01/24 03:36 Dose: 100 mls/hr Documented By: SIM Daptomycin 400 mg/ Syringe 8 mls @ 4 mls/min IV Q24H STEPHEN; Protocol Stop: 02/08/24 01:55 Last Admin: 02/02/24 01:49 Dose: 4 mls/min Documented By: Admin: 02/01/24 03:37 Dose: 4 mls/min Documented By: SIM Metoprolol Succinate (Metoprolol Succ 25mg Ext Rel Tab) 25 mg PO BID STEPHEN Stop: 03/02/24 08:59 Last Admin: 02/02/24 07:48 Dose: 25 mg Documented By: Admin: 02/01/24 20:37 Dose: 25 mg Documented By: Admin: 02/01/24 08:22 Dose: 25 mg Documented By: GABRIEL Metoprolol Succinate (Metoprolol Succ 25mg Ext Rel Tab) 25 mg PO NOW STA Stop: 02/02/24 12:33 Last Admin: 02/02/24 14:47 Dose: 25 mg Documented By: MTP Potassium Chloride (Potassium Chloride Crtab 20 Meq Tabcr) 40 meq PO NOW STA Stop: 02/02/24 08:10 Last Admin: 02/02/24 15:59 Dose: 40 meq Documented By: MTP Potassium Chloride (Potassium Chloride Crtab 20 Meq Tabcr) 40 meq PO NOW STA Stop: 02/03/24 07:52 Last Admin: 02/03/24 09:03 Dose: 40 meq Documented By: TMP Potassium Chloride (Potassium Chloride Crtab 20 Meq Tabcr) 20 meq PO BID STEPHEN Stop: 03/04/24 20:59 Last Admin: 02/03/24 21:57 Dose: 20 meq Documented By: [id number] Imaging Data Radiologist's Impression: Chest X-Ray 01/31/24 18:14 XR chest 1V not portable HISTORY: Sepsis COMPARISON: Chest 12/30/2022. FINDINGS: No pneumothorax. The cardiac silhouette remains mildly enlarged. Chronic interstitial thickening persists. Stable blunting of the costophrenic sulci with scattered calcified pleural plaques. There there are new small upper lobe airspace opacities.. No acute fractures. Trace bilateral pleural effusions again noted. IMPRESSION: 1. There is a new small upper lobe airspace opacities. This likely represents a pneumonia. 2. Cardiomegaly and trace bilateral pleural effusions persist. 3. Calcified pleural plaques again noted. ACT 112: Negative or not required by law. Electronically signed by: Magnus Stephenson M.D. 01/31/2024 6:44 PM Venous Doppler Study 01/31/24 21:07 Exam(s): US VENOUS RIGHT LOWER EXTREMITY EXAM: US Duplex Right Lower Extremity Veins CLINICAL HISTORY: Reason for exam: LLE swelling, redness. TECHNIQUE: Real-time duplex ultrasound scan of the right lower extremity veins integrating B-mode two-dimensional vascular structure, Doppler spectral analysis, color flow Doppler imaging and compression. COMPARISON: None. FINDINGS: Deep veins: Unremarkable. No DVT in the visualized common femoral, femoral, proximal deep femoral or popliteal veins. The veins demonstrate normal color flow, are normally compressible, with normal phasic flow and/or augmentation response. Superficial veins: Unremarkable. No thrombus in the visualized great saphenous vein. Soft tissues: Nonspecific edema along the calf region. No popliteal cyst. IMPRESSION: No ultrasonographic evidence of deep venous thrombosis involving the right lower extremity. Electronically signed by: Aida Dewitt MD 01/31/24 23:10 PM Discharge Plan Visit Data Chief Complaint: Infection Stated Complaint: INFECTION IN BOTH LEGS, COPD ED Provider: Chanelle Maddox Discharge Problem: Bilateral cellulitis of lower leg, Bilateral edema of lower extremity, History of COPD, History of CHF (congestive heart failure) Patient Disposition: Admitted As Inpatient Discharge Instructions Interventions: ED Discharge Assessment Last Done: 02/01/24 01:57
[2024-02-01] MEDS ORDERED: POLYETHYLENE (MIRALAX) 17 GM PACK PO PRN (01:56)
[2024-02-01] MEDS ORDERED: CARBOHYDRATES FOR HYPOGLYCEMIA PO PRN (01:56)
[2024-02-01] MEDS ORDERED: DEXTROSE 50% 50 ML SYRINGE IV PRN (01:56)
[2024-02-01] MEDS ORDERED: GLUCOSE 10 TAB/TUBE PO PRN (01:56)
[2024-02-01] MEDS ORDERED: GLUCAGON FOR INJ 1 MG VIAL SQ PRN (01:56)
[2024-02-01] MEDS ORDERED: GLUCOSE 40% GEL 15 GM TUBE PO PRN (01:56)
[2024-02-01] MEDS: SODIUM CHLORIDE 0.9% 1,000 ML IV SCH (03:36)
[2024-02-01] MEDS: DAPTOmycin 400 MG in SYRINGE 0 ML IV SCH (03:37)
[2024-02-01 06:53] LABS: Basophils # (auto) 0.04 K/uL (0.00-0.20); Basophils % (auto) 0.4 %; Eosinophils # (auto) 0.06 K/uL (0.00-0.50); Eosinophils % (auto) 0.5 %; Hematocrit (blood only) 36.3 % (42.0-52.0); Immature Granulocytes # (auto) 0.25 K/uL (0.01-0.20); Immature Granulocytes % (auto) 2.3 %; Lymphocytes # (auto) 1.33 K/uL (1.20-3.40); Lymphocytes % (auto) 12.1 %; Mean Corpuscular Hgb Conc 33.1 g/dL (32.0-36.0); Mean Corpuscular Volume 105.8 fL (80.0-100.0); Mean Platelet Volume 12.3 fL (9.4-12.4); Monocytes # (auto) 0.64 K/uL (0.11-0.59); Monocytes % (auto) 5.8 %; Neutrophils # (auto) 8.66 K/uL (1.40-6.50); Neutrophils % (auto) 78.9 %; Platelet Count 185 K/uL (130-400); RDW Coefficient of Variation 14.7 % (11.5-14.5); RDW Standard Deviation 56.9 fL (36.4-46.3); Red Blood Count 3.43 M/uL (4.70-6.10); White Blood Count 10.98 K/ul (4.8-10.8)
[2024-02-01 07:09] LABS: BUN Creatinine Ratio 34.1 (10-20); Creatinine Clr Calc Pharmacy 67.5 ml/min; Est GFR (African American) 91.9 ml/min; Est GFR (Non-African American) 79.3 ml/min; Magnesium 2.2 mg/dl (1.7-2.4)
[2024-02-01 08:07] LABS: Estimated Average Glucose 171 mg/dl; Hemoglobin A1C 7.6 % (4.5-5.6)
[2024-02-01] MEDS: CEFEPIME 2,000 MG in SYRINGE 0 ML IV SCH (08:21)
[2024-02-01] MEDS: PANTOprazole 40 MG TAB PO SCH (08:22)
[2024-02-01] MEDS: APIXABAN 5 MG TABLET PO SCH (08:22)
[2024-02-01] MEDS: predniSONE 5 MG TAB PO SCH (08:22)
[2024-02-01] MEDS: CEFEPIME 2,000 MG/20 ML VIAL ONE (08:22)
[2024-02-01] MEDS: GABAPENTIN 300 MG CAP PO SCH (08:22)
[2024-02-01] MEDS: CYANOCOBALAMIN (B-12) 500 MCG TABLET PO SCH (08:22)
[2024-02-01] MEDS: METOPROLOL SUCC 25MG EXT REL TAB PO SCH (08:22)
[2024-02-01] MEDS: FINASTERIDE 5 MG TAB PO SCH (08:22)
[2024-02-01] MEDS: CHOLECALCIFEROL 25 MCG (1000 UNITS) TAB PO SCH (08:22)
[2024-02-01] MEDS: FLUTICASONE/VILANTEROL 200/25MCG 14 PUFFS/INHALER INH SCH (08:25)
[2024-02-01] MEDS: INSULIN ASPART PER UNIT CHARGE SC SCH (10:07)
--- NOTE | 2024-02-01 15:44 | Electrocardiogram Report ---
Test Reason : Blood Pressure : / mmHG Vent. Rate : 094 BPM Atrial Rate : 308 BPM P-R Int : 000 ms QRS Dur : 068 ms QT Int : 330 ms P-R-T Axes : 000 042 -55 degrees QTc Int : 412 ms Atrial flutter with variable A-V block Nonspecific ST abnormality Abnormal ECG When compared with ECG of 30-DEC-2022 20:25, Atrial flutter has replaced Sinus rhythm T wave inversion more evident in Inferior leads Confirmed by Balwinder Galvez ([id number]) on 02/01/2024 3:44:09 PM Referred By: REFERRED SELF Confirmed By:Balwinder Galvez
[2024-02-01] MEDS: FUROSEMIDE 20 MG TAB PO SCH (16:57)
--- NOTE | 2024-02-01 17:36 | Hospitalist Progress Note ---
Date of Service February 01, 2024 Assessment & Plan (1) Sepsis: Plan: Mr. Peña is an 78-year-old male with past medical history significant for hyperlipidemia, steroid-induced hyperglycemia, diabetes not on any medications, history of pneumonia, history of SVT, history of chronic heart failure with preserved ejection fraction, longstanding persistent atrial fibrillation, aneurysm of ascending aorta, hypertension, BPH, osteoarthritis, cellulitis of right arm, polyneuropathy, history of rheumatoid arthritis who lives alone ambulates without support who presented to ED on 01/30 due to right lower extremity cellulitis and swelling. Patient was admitted for concern of sepsis. Patient reports feeling well since admission, with interval improvement in pain and swelling of RLE. Doppler negative for DVT. #Probable Sepsis #Right lower extremity cellulitis 2/2 wound POA -Lactic acid 3, now resolved WBC 11, however, chronic; remains afebrile Blood pressure is okay Gentle fluids s/p IV Rocephin Will continue with Dapto and cefepime -MRSA nare ordered, will DC dapto if negative Seems to report subjective improvement Hx of CoNs on left leg Close monitor on telemetry Tib-fib xray to right tib-fib assess signs of soft tissue depth Wound care nurse #Acute on Chronic heart failure with preserved EF #Bilateral lower extremity swelling Chest XRAY with pleural effusions and likely edema/vascular congestion ECHO in 2021 with EF 60%; Last followed Cardiology in 2022 Reports of intermittent compliance per daughter at bedside given concern with frequent urination Received fluids for concern of sepsis Exam notable for significant edema to BLE, rather than RLE c/f cellulitis BNP ordered Start IV lasix 20mg BID Monitor lytes, replace K >4 mag >2 phos>3 #Paroxysmal SVT #Long-term persistent atrial fibrillation controlled rates, chronic Eliquis #Borderline tachybrady syndrome Continue on metoprolol succinate Continue on Eliquis Monitor on Tele #Chronic Leukocytosis #Chronic Macrocytic Anemia #Vitamin B12 deficiency Follow Heme/onc, no immature cells or abnormal cells on diff. Baseline ~11.1 WBC, congruent on labs here CTM #Diabetes Mellitus type II, goal <8% Not on meds, A1C 7.6% Will place on sliding scale Diabetic diet #COPD Stable continue inhalers #Rheumatoid arthritis On prednisone 5 mg daily, 10mg prn #BPH On finasteride #Hyperlipidemia Hold Crestor while on Dapto DVT prophylaxis Eliquis Disposition Telemetry Full code Admission and Anticipated Discharge Date Admission Date: January 31, 2024 Subjective No acute events over night Reports that the swelling in his legs started over 1-2 weeks ago, with right > left after injuring his right leg. He notes some JONES, but denies chest pain, palpitations or other acute concerns. Physical Exam Constitutional: WD/WN, vitals as above Respiratory: normal respiratory effort, lungs clear to auscultation Cardiovascular: irregularly irregular Gastrointestinal (Abdomen): protuberant, soft, nontender Skin: 2+ pitting edema, R>L; right lower extre mity with diffuse erythema, bullous fluid collection, wound with scabbing on anterior salgado with no discharge noted, not tense edema on exam, warm, edema extends to posterior thigh on R; LLE with scars and healed wound with out superimposed signs of infection, edema extends to knee. Results & Data Results & Data Vital Signs (Past 12 Hours) Vital Signs Temp Pulse Pulse Resp BP Pulse Ox O2 Del Method 02/01/24 16:00 Room Air 02/01/24 16:00 36.5 C 95 H 18 144/89 H 98 Room Air 02/01/24 14:04 101 H 22 152/90 H 97 Room Air 02/01/24 12:00 76 20 129/85 92 Room Air 02/01/24 10:02 104 H 20 122/86 97 Room Air 02/01/24 07:38 81 02/01/24 07:30 106 H 20 129/73 95 Room Air 02/01/24 05:56 36.7 C 88 22 97 Room Air Laboratory Results Short CBC 01/31/24 02/01/24 Range/Units 19:20 06:10 WBC 11.16 H 10.98 H (4.8-10.8) K/ul Hgb 12.0 L 12.0 L (14.0-18.0) g/dl Hct 35.6 L 36.3 L (42.0-52.0) % Plt Count 175 185 (130-400) K/uL BMP 01/31/24 02/01/24 19:20 06:10 Sodium 135 L 136 Potassium 4.1 4.0 Chloride 101 104 Carbon Dioxide 24 BUN 32 H 31 H Creatinine 1.11 0.91 Glucose 242 H 135 H Calcium 9.1 9.0 Liver Function 01/31/24 Range/Units 19:20 Total Bilirubin 1.0 (0.2-1.0) mg/dl AST 23 (13-39) U/L ALT 33 (7-52) U/L Alkaline Phosphatase 41 (34-104) U/L Albumin 4.1 (3.4-5.0) gm/dl Urine 01/31/24 Range/Units 21:53 Urine Color Dark Yellow Urine Appearance Clear (Clear) Urine pH 5.0 (4.5-7.5) Ur Specific Dougherty 1.026 (1.000-1.030) Urine Protein Negative (Negative) Urine Glucose (UA) 2+ H (Negative) Medications Administered Home Medications Medication Instructions Recorded Confirmed Last Taken finasteride 5 mg tablet 5 mg PO DAILY 04/25/20 01/31/24 01/31/24 gabapentin 300 mg capsule 300 mg PO BID 04/25/20 01/31/24 01/31/24 prednisone 5 mg tablet 5 mg PO DAILY 04/25/20 01/31/24 01/31/24 spironolactone 25 mg tablet 25 mg PO DAILY 04/25/20 01/31/24 01/31/24 cholecalciferol (vitamin D3) 25 50 mcg PO DAILY 07/30/20 01/31/24 01/31/24 mcg (1,000 unit) tablet (Vitamin D3) apixaban 5 mg tablet 5 mg PO BID 12/31/22 01/31/24 01/31/24 metoprolol succinate 50 mg 25 mg PO BID 12/31/22 01/31/24 01/31/24 tablet,extended release 24 hr pantoprazole 40 mg tablet,delayed 40 mg PO DAILY 12/31/22 01/31/24 01/31/24 release furosemide 20 mg tablet (Lasix) 20 mg PO DAILY #30 tabs 01/06/23 01/31/24 01/31/24 cyanocobalamin (vitamin B-12) 1,000 mcg PO DAILY 01/31/24 01/31/24 01/31/24 1,000 mcg tablet (Vitamin B-12) fluticasone 500 mcg-salmeterol 50 1 inh inhalation BID 01/31/24 01/31/24 01/31/24 mcg/dose blistr powdr for inhalation (Wixela Inhub) rosuvastatin 20 mg tablet (Crestor) 20 mg PO DAILY 01/31/24 01/31/24 01/31/24 Active Medications Generic Name Dose Route Start Last Admin Trade Name Nam PRRodger Reason Stop Dose Admin Apixaban 5 mg 02/01/24 09:00 02/01/24 08:22 Apixaban 5 Mg Tablet PO 03/02/24 08:59 5 mg BID STEPHEN Administration Cyanocobalamin 1,000 mcg 02/01/24 09:00 02/01/24 08:22 Cyanocobalamin (B-12) 500 Mcg Tablet PO 03/02/24 08:59 1,000 mcg DAILY STEPHEN Administration Finasteride 5 mg 02/01/24 09:00 02/01/24 08:22 Finasteride 5 Mg Tab PO 03/02/24 08:59 5 mg DAILY STEPHEN Administration Fluticasone/Vilanterol 1 puffs 02/01/24 09:00 02/01/24 08:25 Fluticasone/Vilanterol 200/25mcg 14 Puffs/Inhaler INH 03/02/24 08:59 1 puffs DAILY STEPHEN Administration Furosemide 20 mg 02/01/24 17:00 02/01/24 16:57 Furosemide 20 Mg Tab PO 03/02/24 16:59 20 mg BID17 STEPHEN Administration Gabapentin 300 mg 02/01/24 09:00 02/01/24 08:22 Gabapentin 300 Mg Cap PO 03/02/24 08:59 300 mg BID STEPHEN Administration Sodium Chloride 1,000 mls @ 100 mls/hr 02/01/24 01:56 02/01/24 14:01 Nss IV 02/01/24 21:55 100 mls/hr .Q10H STEPHEN Administration Daptomycin 400 mg/ Syringe 8 mls @ 4 mls/min 02/01/24 03:00 02/01/24 03:37 IV 02/08/24 01:55 4 mls/min Q24H STEPHEN Administration Protocol Cefepime HCl 2,000 mg/ Syringe 20 mls @ 5 mls/min 02/01/24 09:00 02/01/24 08:21 IV 02/08/24 08:59 5 mls/min Q12H STEPHEN Administration Protocol Insulin Aspart 0 units 02/01/24 07:30 02/01/24 16:41 Insulin Aspart Per Unit Charge SC 03/02/24 07:29 Not Given ACHS STEPHEN Metoprolol Succinate 25 mg 02/01/24 09:00 02/01/24 08:22 Metoprolol Succ 25mg Ext Rel Tab PO 03/02/24 08:59 25 mg BID STEPHEN Administration Pantoprazole Sodium 40 mg 02/01/24 09:00 02/01/24 08:22 Pantoprazole 40 Mg Tab PO 03/02/24 08:59 40 mg DAILY STEPHEN Administration Prednisone 5 mg 02/01/24 09:00 02/01/24 08:22 Prednisone 5 Mg Tab PO 03/02/24 08:59 5 mg DAILY STEPHEN Administration Vitamin D 50 mcg 02/01/24 09:00 02/01/24 08:22 Cholecalciferol 25 Mcg (1000 Units) Tab PO 03/02/24 08:59 50 mcg DAILY STEPHEN Administration
--- OUTSIDE RECORDS SUMMARY | 2024-02-01 20:48 | External Medical Summary ---
Author Name Unknown Address Unknown Organization [id number]:[facility] [place] - [address] [place] [id number] Laboratory Report Ordering Provider Test Date Status ZIGGY APONTE 01/29/2024 13:36:52 Final Observation Date Value Abnormality Reference (Units ) Status CRP, low-sensitivity 01/29/2024 13:36:52 7 Above high normal <=5 (mg/L) Final Performing Location LABORATORY [facility] - [address] [place] [address]
--- OUTSIDE RECORDS SUMMARY | 2024-02-01 20:48 | External Medical Summary | Summary of Care ---
Author Name Unknown Organization [facility] Address [address] [facility] [place] [address] Phone [phone] Care Team Providers Care Stock Fitter Name Role Phone Unavailable Primary Care Provider Unavailabl e Reason for Visit * Reason Comments Well Adult Exam Patient presents in office today for his annual Well visit. Encounter Details Date Type Department Care Team (Latest Contact Info) Description 01/12/2024 1:00 PM EDT Office Visit [facility] [address] [place] [address] Pura Banerjee CRNP [address] [place] [address] COPD, group A, by GOLD 2017 classification ([facility])*; Chronic heart failure with preserved ejection fraction (HCC); HTN, goal below 140/90; Venous stasis ulcer of other part of right lower leg limited to breakdown of skin without varicose veins (HCC); Longstanding persistent atrial fibrillation ([facility]); Polyneuropathy, unspecified; Type 2 diabetes mellitus without complication, without long-term current use of insulin (HCC); SVT (supraventricular tachycardia) ([facility]); Dyslipidemia, goal LDL below 70 Allergies Active Allergy Reactions Criticality Noted Date Comments Other - Drugs Diarrhea,Nausea/vomiting 10/12/18 99 Dimox documented as of this encounter (statuses as of 01/12/2024) Medications Medication Sig Dispensed Refills Start Date End Date Status finasteride (PROSCAR) 5 MG Tablet Take 1 Tab by mouth daily. 90 Tab 3 09/26/2016 Active Vitamin D (Cholecalciferol) 25 MCG (1000 UT) Oral Tablet Take by mouth. 1 tab twice daily 0 Active Apixaban 5 MG Oral Tablet (ELIQUIS)Indication s:A-fib (HCC) Take 1 Tab by mouth 2 times a day. 180 Tab 3 09/04/2020 Active predniSONE 2.5 MG Oral Tablet (DELTASONE) Take 2 Tablets by mouth in the morning. 0 Active Pantoprazole Sodium 40 MG Oral Tablet Delayed Release (PROTONIX) Take 1 Tab by mouth daily. 30 Tab 5 09/11/2020 Active Metoprolol Succinate ER 25 MG Oral Tablet Extended Release 24 Hour (Toprol XL) Take 1 Tab by mouth 2 times a day. 90 Tab 3 09/29/2020 Active Spironolactone 25 MG Oral Tablet (Aldactone) Take 1 Tablet by mouth in the morning. 90 Tab 3 03/05/2021 Active Rosuvastatin Calcium 10 MG Oral Tablet (Crestor)Indication s:Dyslipidemia Take 1 Tab by mouth daily. 90 Tab 3 03/05/2021 Active Gabapentin 300 MG Oral Capsule (Neurontin) Take 1 Capsule by mouth in the morning and 1 Capsule before bedtime. 0 Active Fluticasone-Salmete rol 500-50 MCG/ACT Inhalation Aerosol Powder Breath Activated (Advair Diskus) USE 1 INHALATION BY ORAL INHALATION TWICE A DAY FOR COPD REPLACES SYMBICORT RINSE MOUTH AFTER USE 0 02/10/2022 Active Furosemide 20 MG Oral Tablet (Lasix) 20 mg orally daily 30 Tablet 0 01/06/2023 Active documented as of this encounter (statuses as of 01/12/2024) Active Problems Problem Noted Date Diagnosed Date Superficial foreign body of right leg without major open wound and without infection 01/12/2024 Type 2 diabetes mellitus wit hout complication, without long-term current use of insulin 01/12/2024 Chronic heart failure with preserved ejection fr action 03/29/2023 HTN, goal below 140/90 03/29/2023 Pneumonia of both lower lobes due to infectious organism 01/10/2023 Steroid-induced hyperglycemia 01/10/2023 Prediabetes 01/10/2023 Aneurysm of the ascending aorta, without rupture 08/02/2022 Cellulitis of right arm 07/15/2022 Dyslipidemia, goal LDL below 70 10/22/2020 Longstanding persistent atrial fibrillation 09/09 Polyneuropathy, unspecified 04/28/2020 SVT (supraventricular tachycardia) 12/10/2019 Ascending aorta enlargement 12/10/2019 History of rheumatoid arthritis 06/26/2017 Current chronic use of systemic steroids 017 Enlarged prostate 08/23/2016 Encounter for long-term (current) use of medicat ions 11/07/2002 Overview: ICD-10 update of inactive term GENERAL OSTEOARTHROSIS 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 documented as of this encounter (statuses as of 01/12/2024) Resolved Problems Problem Noted Date Diagnosed Date Resolved Date COPD, group A, by GOLD 2017 classification 05/22/2023 01/12/2024 Overview: Per COPD GOLD Classification Chronic diastolic heart failure 01/10/2023 03/29/2023 Venous stasis ulcer limited to breakdown of skin without varicose veins 01/10/2023 01/12/2024 History of COVID-19 10/25/2022 01/12/20 24 COPD exacerbation 08/02/2022 10/24/2023 Overview: history Right heart failure, unspecified 08/02/2022 03/29/2023 Septic bursitis of elbow, right 07/15/2022 01/12/2024 Swelling of right foot 07/15/202201/11 COVID-19 virus infection 07/15/2022 Unspecified inflammatory spo ndylopathy, cervical region 10/22/2020 03/05/2021 Age-related osteoporosis wit hout current pathological fracture 04/28/2020 03/05/2021 Simple chronic bronchitis 07/10/2019 History of colon polyps 06/28/201912/08 Overview: Historical. Routine medical exam 12/21/2016 020 Overview: Acute. Rheumatoid arthritis involving multiple sites 12/22/19 17 06/26/2017 Benign neoplasm of colon 07/31/2007 Overview: hyperplastic polyp--repeat 10 years ADVANCE DIRECTIVE INFORMATION 05/04/2005 12/30/2019 Overview: 2No, Advance Directive brochure offered , patient declined. Historical. Osteoporosis 10/07/2002 05/02/2012 Papilledema 01/20/1999 11/24/1999 Tobacco use disorder 998 Rheumatoid arthritis 017 Pleural effusion 11/24/1999 Iridocyclitis 11/24/1999 Peripheral neuropathic pain 12/30/2019 Overview: Acute. documented as of this encounter (statuses as of 01/12/2024) Immunizations Name Administration Dates Next Due Pneumococcal Conjugate Vacci ne, 20-valent ([id number]) 08/02/2022 Pneumococcal Polysaccharide PPV23 (Pneumovax) 07/30/2020,07/23/2007 Seasonal Influenza Virus Vac cine, Unspecified Formulation 07/27/2021,07/10/2020,07/10/2019,07/24,07/06/2018,07/08/2015,06/13/2015 ,07/07/2014,07/03/2013,07/23/2012,06/10,07/29/2010,07/09/2010, 8,08/20/2007,07/23/2007,09/22/2005,02/2002,09/13/2001,07/09/2000,07/26/19 99 Seasonal Influenza, PF, 6 M & above, IM , (FluLaval or Fluzone) 07/10/2020,07/10/2019,07/06/2018 Seasonal Influenza, Quadriva lent Hd (Fluzone Hd) 06/16/2023,07/27/2021 Seasonal Influenza, Split, I IV3, With Preserve, Inj 07/08/2015,07/07/2014,07/03/2013,07/06,07/23/2008,07/23/2007 Seasonal Influenza, Trivalen t, Adjuvanted, 65+ yrs 08/09/2018 TDAP (age 10 and older)(Boostrix) 02/07/2016 documented as of this encounter Social History Tobacco Use Types Packs/Day Years Used Date Smoking Tobacco: Former Cigarettes 11 07 0 04/08/1968 - 04/08/1998 Smokeless Tobacco: Current Snuff Comments:1/2 can per day Alcohol Use Standard Drinks/Week Comments Not Currently 0 (1 standard drink = 0.6 oz pur e alcohol) PHQ-2 Answer Date Recorded PHQ Adult Total Score 0 01/10/2023 Hunger Vital Sign Answer Date Recorded Within the past 12 months, y ou worried that your food would run out before you got the money to buy more. Never true 04/21/20 23 Within the past 12 months, t he food you bought just didn't last and you didn't have money to get more. Never true 04/21/2023 Sex and Gender Information Value Date Recorded Sex Assigned at Male 01/10/2023 12:55 PM EDT Gender Identity Male 01/10/2023 12:55 PM EDT Sexual Orientation Straight 01/10/2023 12 :55 PM EDT Job Start Date Occupation Industry Not on file Not on file Not on file documented as of this encounter Last Filed Vital Signs Vital Sign Reading Time Taken Comments Blood Pressure 126/74 01/12/2024 12:49 PM EDT Pulse 78 01/12/2024 12:49 PM EDT Temperature - - Respiratory Rate 20 01/12/2024 12:49 PM EDT Oxygen Saturation 99% 01/12/2024 12:49 PM EDT Inhaled Oxygen Concentration - - Weight 82.6 kg (182 lb) 01/12/2024 12:49 PM EDT Height 172.7 cm (5' 8") 01/12/2024 12:49 PM EDT Body Mass Index 27.67 01/12/2024 12:49 PM EDT documented in this encounter Functional Status Functional Status Response Date of Assess ment Are you deaf or do you have serious difficulty h earing? No 07/15/2022 Are you blind or do you have serious difficulty seeing, even when wearing glasses? No 07/15/2022 Do you have serious difficul ty walking or climbing stairs? (5 years old or older) No 07/22/2022 Do you have difficulty dress ing or bathing? (5 years old or older) No 07/15/2022 Because of a physical, menta l, or emotional condition, do you have difficulty doing errands alone such as visiting a doctor s office or shopping? (15 years old or older) No 07/15/20 22 Cognitive Status Response Date of Assessm ent Because of a physical, menta l, or emotional condition, do you have serious difficulty concentrating, remembering, or making decisions? (5 years old or older) No 07/15/2022 documented as of this encounter Progress Notes * Germanmary [email or web address] - 01/12/2024 1:18 PM EDT Images from the original note were not included. Follow up Family Medicine Visit CC: Chief Complaint Patient presents with Well Adult Exam Patient presents in office today for his annual Well visit. History of Present Illness: Anil Peña is a 78 year old male presenting for his usual follow up . Overall he is feelingwell. He lives by himself. Granddaughter stays with him. He just had blood work at [place] and "everything was ok" Copd:sob WITH EXERTION. Denies cough or wheezing. He is still taking advair. He reports not using albuterol much. Chf- WEIGHT IS STABLE. Denies increased sob or increased swelling in legs from baseline. He notes dog scratched him on right lower leg. 2 months. It is healing. 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 Tobacco Use Smoking status: Former Current packs/day: 0.00 Average packs/day: 1 pack/day for 30.0 years (30.0 ttl pk-yrs) Types: Cigarettes Start date: 04/08/1968 Quit date: 04/08/1998 Years since quittin.7 Smokeless tobacco: Current Types: Snuff Tobacco comments: 1/2 can per day Vaping Use Vaping Use: Never used Substance and Sexual Activity Alcohol use: Not Currently Drug use: No Sexual activity: Yes Partners: Female Comment: no problems Other Topics Concern Not on file Social History Narrative Not on file Social Determinants of Health Financial Resource Strain: Not on file Food Insecurity: No Food Insecurity (04/21/2023) Hunger Vital Sign Worried About Running Out of Food in the Last Year: Never true Ran Out of Food in the Last Year: Never true Transportation Needs: Not on file Physical Activity: Not on file Stress: Not on file Social Connections: Not on file Intimate Partner Violence: Not on file Housing Stability: Not on file PMH: Past Medical History: Diagnosis Date Benign neoplasm of colon 07/31/2007 hyperplastic polyp--repeat 10 years BPH with obstruction/lower urinary tract symptoms COPD exacerbation (HCC) history COVID-19 virus infection 07/15/2022 Edentulous Generalized osteoarthritis Degenerative disk disease History of rheumatoid arthritis 06/26/2017 Other osteoporosis Other specified disorders of rotator cuff syndrome of shoulder and allied disorders B/L Peripheral neuropathic pain Pleural effusion Right lung Primary osteoarthritis of cervical spine Past Surgical History: Procedure Laterality Date COLONOSCOPY W/ BIOPSY (RECTUM) 07/31/07 hyperplastic polyp--repeat 10 years DENTAL SURGERY PROCEDURE NEC in high school all teetyh removed DRAIN ARM/ELBOW ABSCESS/HEMATOMA Right 07/17/2022 INCISION AND DRAINAGE UPPER ARM DEEP ABSCESS OR HEMATOMA performed by Nic Chauhan MD at OR [facility] DRAIN SKIN ABSCESS, SIMPLE/SINGLE Right 01/17/2020 INCISION AND DRAINAGE SKIN ABSCESS SIMPLE OR SINGLE performed by Delphine Ruvalcaba DO at OR [facility] FLUORO UPPER GI W AIR WO KUB negative NEEDLE BIOPSY OF SPINAL CORD 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 REPAIR INGUINAL HERNIA STRANGULATED, AGE 5 OR MORE 1990 bilateral STRESS TREADMILL Normal Stress Thallium THORACOTOMY WITH EXPLORATION Thoracotomy,with biopsy Right lung ULTRASOUND GALLBLADDER normal Outpatient Medications Marked as Taking for the 01/12/24 encounter (Office Visit) with Pura Banerjee CRNP Medication Sig Furosemide 20 MG Oral Tablet (Lasix) 20 mg orally daily Fluticasone-Salmeterol 500-50 MCG/ACT Inhalation Aerosol Powder Breath Activated (Advair Diskus) USE 1 INHALATION BY ORAL INHALATION TWICE A DAY FOR COPD REPLACES SYMBICORT RINSE MOUTH AFTER USE Gabapentin 300 MG Oral Capsule (Neurontin) Take 1 Capsule by mouth in the morning and 1 Capsule before bedtime. Rosuvastatin Calcium 10 MG Oral Tablet (Crestor) Take 1 Tab by mouth daily. Spironolactone 25 MG Oral Tablet (Aldactone) Take 1 Tablet by mouth in the morning. Metoprolol Succinate ER 25 MG Oral Tablet Extended Release 24 Hour (Toprol XL) Take 1 Tab by mouth 2 times a day. Pantoprazole Sodium 40 MG Oral Tablet Delayed Release (PROTONIX) Take 1 Tab by mouth daily. predniSONE 2.5 MG Oral Tablet (DELTASONE) Take 2 Tablets by mouth in the morning. Apixaban 5 MG Oral Tablet (ELIQUIS) Take 1 Tab by mouth 2 times a day. Vitamin D (Cholecalciferol) 25 MCG (1000 UT) Oral Tablet Take by mouth. 1 tab twice daily finasteride (PROSCAR) 5 MG Tablet Take 1 Tab by mouth daily. Review of patient's allergies indicates: Allergen Reactions Other - Drugs Diarrhea and Nausea/vomiting Dimox Most Recent Immunizations Administered Date(s) Administered Influenza, Whole Virus 07/09/2000 Pneumococcal Conjugate Vaccine, 20-valent ([id number]) 08/02/2022 Pneumococcal Conjugate Vaccine, 7 Valent 07/09/1999 Pneumococcal Polysaccharide PPV23 (Pneumovax) 07/30/2020 Seasonal Influenza Virus Vaccine, Unspecified Formulation 07/27/2021 Seasonal Influenza, PF, 6 M & above, IM , (FluLaval or Fluzone) 07/10/2020 Seasonal Influenza, Quadrivalent Hd (Fluzone Hd) 06/16/2023 Seasonal Influenza, Split, IIV3, With Preserve, Inj 07/08/2015 Seasonal Influenza, Trivalent, Adjuvanted, 65+ yrs 08/09/2018 TD - Tetanus/Diptheria (ADULT) 05/20/1999 TDAP (age 10 and older)(Boostrix) 02/07/2016 Review of Systems: Review of Systems Constitutional: Negative for fatigue and fever. Respiratory: Positive for shortness of breath. Negative for cough, chest tightness and wheezing. Cardiovascular: Positive for leg swelling. Negative for chest pain and palpitations. Gastrointestinal: Negative for abdominal pain, blood in stool, constipation, nausea and vomiting. Genitourinary: Positive for frequency. Negative for dysuria and hematuria. Neurological: Negative for dizziness and syncope. Psychiatric/Behavioral: Negative for sleep disturbance. Physical Exam: BP 126/74 | Pulse 78 | Resp 20 | Ht 1.727 m (5' 8") | Wt 82.6 kg (182 lb) | SpO2 99% | BMI 27.67 kg/m | BSA 1.99 m Physical Exam HENT: Head: Normocephalic. Cardiovascular: Rate and Rhythm: Normal rate. Pulmonary: Effort: Pulmonary effort is normal. Breath sounds: Decreased breath sounds present. Musculoskeletal: Right lower le+ Edema present. Left lower le+ Edema present. Skin: Findings: Erythema and laceration present. Comments: Laceration with scabbing and yellow drainage- mild erythema around the lesion. Neurological: Mental Status: He is alert and oriented to person, place, and time. Psychiatric: Mood and Affect: Mood normal. Speech: Speech normal. Behavior: Behavior normal. Thought Content: Thought content normal. Cognition and Memory: Cognition normal. Judgment: Judgment normal. Assessment and Plan: 1. COPD, group A, by GOLD 2017 classification ([facility]) Stable Continue albuterol prn 2. Chronic heart failure with preserved ejection fraction (HCC) With leg swelling chronically stable 3. HTN, goal below 140/90 stable 4. Venous stasis ulcer of other part of right lower leg limited to breakdown of skin without varicose veins ([facility]) Right leg wound Patient declines treatment for this including topical and oral antibiotics. He prefers to treat at home. 5. Longstanding persistent atrial fibrillation ([facility]) Rate controlled 6. Polyneuropathy, unspecified Chronic and not increased PATIENT DECLINES ALL LABS TODAY HE STATES JUST COMPLETED AT [place]- Will obtain copY. I have advised the patient to call our office incase of any worsening or new symptoms. I spent a total of 40-54 minutes (exact time 40 mins) on the date of service in preparation, delivery, and documentation of the care provided to Anil Peña excluding any time spent in the performance of separately billed services. ROB Agrawal, ADELA [facility] documented in this encounter Nursing Notes * Anusha Ernandez MED ASSIST - 01/12/2024 12:47 PM EDT The patient has been properly identified by confirmation of name and date of . Chief Complaint Patient presents with Well Adult Exam Patient presents in office today for his annual Well visit. documented in this encounter Plan of Treatment Upcoming Encounters Date Type Department Care Team (Late st Contact Info) Description 01/29/2024 1:00 PM EDT Office Visit Hematology/Oncology [facility] [place] [address] [place], [place] [id number] Meghan Cristina CRNP [address] [facility] [place] [address] 04/09/2024 8:30 AM EDT Office Visit Cardiology, Health system [address] [place] [address] Ian Denny MD [address] [place] [address] Health Maintenance Due Date Last Done Comments COVID-19 Vaccine (#1) 1948 Albumin/Creatinine Ratio 1961 Diabetic Foot Exam 1961 Zoster Vaccines (1 of 2) 1962 DXA Scan 11/04/2016 11/04/2013, 10/10, 10/22/2010, Additional history exists HbA1c 09/28/2023 03/29/2023, 10/10, 10/24/2019, Additional history exists Depression Screening 01/11/2024 01/10/2023 GFR 03/29/2024 03/29/2023, 07/09, 07/21/2022, Additional history exists Diabetic Eye Exam 05/22/2024 05/22/2023 DTaP,Tdap,and Td Vaccines (2 - Td or Tdap) 02/06/2026 02/07/2016, 05/20/1999 Pneumococcal Vaccine: 65+ Years Completed 08/02/2022, 07/30/2020, 11/05/2018, Additional history exists Influenza Vaccine (FLU shot) Completed 05/2023, 07/27/2021, 07/27/2021, Additional history exists GARDASIL-HPV IMMUNIZATION SERIES Aged Out No longer eligible based on patient's age to complete this topic Hepatitis B Aged Out No longer eligi ble based on patient's age to complete this topic MENINGOCOCCAL (MENACTRA/MENVEO) Aged Out No longer eligible based on patient's age to complete this topic documented as of this encounter Medical Devices Not on filedocumented as of this encounter Visit Diagnoses Diagnosis COPD, group A, by GOLD 2017 classification ([facility])- Primary Chronic heart failure with preserved ejection fraction (HCC) HTN, goal below 140/90 Unspecified essential hypertension Venous stasis ulcer of other part of right lower leg limited to breakdown of skin without varicose veins (HCC) Longstanding persistent atrial fibrillation (HCC) Polyneuropathy, unspecified Type 2 diabetes mellitus without complication, without long-term current use of insulin (HCC) SVT (supraventricular tachycardia) ([facility]) Other specified cardiac dysrhythmias Dyslipidemia, goal LDL below 70 Other and unspecified hyperlipidemia documented in this encounter Advance Directives Latest Code Status on File Code Status Date Activated Date Inactivated Comments Full Code 07/15/2022 2:11 PM 07/22/2022 4:34 PM This order reflects the patients wishes and were consensually agreed upon. Question Answer Comments Discussion of Advance Directives occurred with: Patient
--- OUTSIDE RECORDS SUMMARY | 2024-02-01 20:48 | External Medical Summary ---
Author Name Unknown Address Unknown Organization [id number]:[facility] [address] [place] [address] Laboratory Report Ordering Provider Test Date Status ZIGGY APONTE 01/29/2024 13:36:52 Final Observation Date Value Abnormality Reference (Units ) Status Erythrocyte sedimentation rate by Photometric method 01/29/2024 13:36:52 9 <20 (mm/hour) Final Performing Location LABORATORY [facility] - [address] [place] [address]
--- OUTSIDE RECORDS SUMMARY | 2024-02-01 20:48 | External Medical Summary | Summary of Care ---
Author Name Unknown Organization [facility] Address [address] [facility] [address] Phone [phone] Care Team Providers Care Disk Recordist Name Role Phone Unavailable Primary Care Provider Unavailabl e Reason for Referral * Evaluate & Treat - Unlimited Visits (Within 10 days (routine)) - Authorized Specialty Diagnoses / Procedures Referred By Celina isaacs Referred To Contact Hematology/Oncology / Hematology Oncology Diagnoses Increased white blood cell count Harjit Bunch CRNP [address] [place] [address] Referral ID Status Reason Start Date Expiration Date Visits Requested Visits Authorized [id number] Authorized Specialty Services Required 12/12/2023 06/09/[phone] Question Answer Referral Priority Within 10 days (routine) Where should this appointment be scheduled? Luis Reason for Referral Abnormal CBC Comments Notes scanned into Epic 12/12/23 CRB Encounter Details Date Type Department Care Team (Late st Contact Info) Description 12/12/2023 Orders Only [facility] [address] [place] [address] Ext *DO NOT REMOVE THIS DEPARTMENT* [place] [address] Request, External Referral Increased white blood cell count* Allergies Active Allergy Reactions Criticality Noted Date Comments Other - Drugs Diarrhea,Nausea/vomiting 10/12/18 99 Dimox documented as of this encounter (statuses as of 12/12/2023) Medications Medication Sig Dispensed Refills Start Date [...] orally daily 30 Tablet 0 01/06/2023 Active Hospital, Clinic, or Other Facility Administered Medication Ordered Dose Route Frequency Start Date End Date Status Albuterol Sulfate (Proventil) (2.5 MG/3ML) 0.083% inhalation solution 2.5 mgIndications:COPD exacerbation (HCC) 2.5 mg NEBULIZER ONCE PRN 01/10/2023 01/10/2024 Active documented as of this encounter (statuses as of 12/12/2023) Active Problems Problem Noted Date Diagnosed Date COPD, group A, by GOLD 2017 classification 05/22 Overview: Per COPD GOLD Classification Chronic heart failure with preserved ejection fr action 03/29/2023 HTN, goal below 140/90 03/29/2023 Pneumonia of both lower lobes due to infectious organism 01/10/2023 Venous stasis ulcer limited to breakdown of skin without varicose veins 01/10/2023 Steroid-induced hyperglycemia 01/10/2023 Prediabetes 01/10/2023 History of COVID-19 10/25/2022 Aneurysm of the ascending aorta, without rupture 08/02/2022 Septic bursitis of elbow, right 07/15/2022 Swelling of right foot 07/15/2022 Cellulitis of right arm 07/15/2022 Dyslipidemia, goal LDL below 70 10/22/2020 Longstanding persistent atrial fibrillation 09/09 Polyneuropathy, unspecified 04/28/2020 SVT (supraventricular tachycardia) 12/10/2019 Ascending aorta enlargement 12/10/2019 Simple chronic bronchitis 07/10/2019 History of rheumatoid arthritis 06/26/2017 Current chronic use of systemic steroids 017 Enlarged prostate 08/23/2016 Encounter for long-term (current) use of medicat ions 11/07/2002 Overview: ICD-10 update of inactive term GENERAL OSTEOARTHROSIS 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 [...] as of this encounter (statuses as of 12/12/2023) Immunizations Name Administration Dates Next Due Pneumococcal Conjugate Vacci ne, 20-valent ([id number]) 08/02/2022 Pneumococcal Polysaccharide PPV23 (Pneumovax) 07/30/2020,07/23/2007 Seasonal [...] Years Used Date Smoking Tobacco: Former Cigarettes 1 30 0 04/08/1968 - 04/08/1998 Smokeless Tobacco: Current [...] on file documented as of this encounter Functional Status Functional Status Response [...] (15 years old or older) No 07/15/20 Cognitive Status Response Date of Assessm ent Because of a physical, menta l, or emotional condition, do you have serious difficulty concentrating, remembering, or making decisions? (5 years old or older) No 07/15/2022 documented as of this encounter Plan of Treatment Upcoming Encounters Date Type Department Care Team (Late st Contact Info) Description 01/12/2024 1:00 PM EDT Office Visit Family [address] [place] [address] Pura Banerjee CRNP [address] [place] [address] 04/09/2024 8:30 AM EDT Office Visit Cardiology, [facility] [address] [place] [address] Ian Denny MD [address] [place] [address] Scheduled Referrals Name Type Priority Associated Diagnoses Orde r Schedule HEMATOLOGY/ONCOLOGY REFERRAL OP Referral Within 10 days (routine) Increased white blood cell count Ordered: 12/12/2023 Health Maintenance Due Date Last Done Comments COVID-19 Vaccine (#1) 1950 Albumin/Creatinine Ratio 1961 Alpha-1 Antitrypsin 1961 Zoster Vaccines (1 of 2) 1962 DXA Scan 11/04/2016 11/04/2013, 10/10, 10/22/2010, Additional history exists Depression Screening 01/11/2024 01/10/2023 GFR 03/29/2024 03/29/2023, 07/09, 07/21/2022, Additional history exists HbA1c 03/29/2024 03/29/2023, 10/10, 10/24/2019, Additional history exists O2 ASSESSMENT COMPLETED IN PAST YEAR FOR COPD 04/21/2024 04/21/2023 DTaP,Tdap,and Td Vaccines (2 - Td or [...] as of this encounter Visit Diagnoses Diagnosis Increased white blood cell count- Primary Leukocytosis, unspecified documented in this encounter Advance Directives Latest Code Status on File Code Status Date Activated Date Inactivated Comments Full Code 07/15/2022 2:11 PM 07/22/2022 4:34 PM This order reflects the patients wishes and were consensually agreed upon. Question Answer Comments Discussion of Advance Directives occurred with: Patient
--- OUTSIDE RECORDS SUMMARY | 2024-02-01 20:48 | External Medical Summary ---
Author Name Unknown Address Unknown Organization K01:[facility] [address] [place] [address] Laboratory Report Ordering Provider Test Date Status ZIGGY APONTE 01/29/2024 13:36:52 Final Observation Date Value Abnormality Reference (Units ) Status Vitamin B12 01/29/2024 13:36:52 780 [id number] (pg/mL) Final Performing Location [facility] - [address] [place] [address]
--- OUTSIDE RECORDS SUMMARY | 2024-02-01 20:48 | External Medical Summary | Summary of Care ---
Author Name Unknown Organization [facility] Address [address] [facility] [place] [address] Phone [phone] Care Team Providers Care Auto Inspector Name Role Phone Unavailable Primary Care Provider Unavailabl e Reason for Visit * Reason Onset Date Comments Test Results 01/12/2024 Encounter Details Date Type Department Care Team (Late st Contact Info) Description 01/12/2024 Telephone Family Practice [facility] [address] [place] [address] Pura Banerjee CRNP [address] [place] [address] Test Results Allergies Active Allergy Reactions Criticality Noted Date Comments Other - Drugs Diarrhea,Nausea/vomiting 10/12/18 99 Dimox documented as of this encounter (statuses as of 01/17/2024) Medications Medication Sig Dispensed Refills Start Date [...] as of this encounter (statuses as of 01/17/2024) Active Problems Problem Noted Date Diagnosed Date [...] as of this encounter (statuses as of 01/17/2024) Resolved Problems Problem Noted Date Diagnosed Date Resolved Date COPD, group A, by GOLD 2017 classification 05/22/2023 01/12/2024 Overview: Per COPD GOLD Classification Chronic diastolic heart failure 01/10/2023 03/29/2023 Venous stasis ulcer limited to breakdown of skin without varicose veins 01/10/2023 01/12/2024 History of COVID-19 10/25/2022 01/12/20 COPD exacerbation 08/02/2022 10/24/2023 Overview: history Right [...] as of this encounter (statuses as of 01/17/2024) Immunizations Name Administration Dates Next Due Pneumococcal Conjugate Vacci ne, 20-valent ([id number]) 08/02/2022 Pneumococcal Polysaccharide PPV23 (Pneumovax) 07/30/2020,07/23/2007 Seasonal [...] No 07/15/2022 documented as of this encounter Miscellaneous Notes * Telephone Encounter - Sydni Bush LPN - 01/17/2024 7:37 AM EDT Lab letter mailed to home. * Telephone Encounter - Sydni Bush LPN - 01/16/2024 10:44 AM EDT Left message to return call to go over bw results from [place]. * Telephone Encounter - Pura Banerjee CRNP - 01/16/2024 10:06 AM EDT Reviewed labs Diabetes controlled Cholesterol controlled Vitamin D is normal. Kidneys and liver functioning normally B12 is low end of normal. Is he taking b 12? At home. Recommend taking b 12 1000 mcg daily. Nghia, ROB, ADELA [facility] [place][note 2] * Telephone Encounter - Antoinette Garza LPN - 01/16/2024 9:56 AM EDT Last labs through [place] were done in Nov. Results printed and placed on Pura's desk for review. * Telephone Encounter - Anusha Ernandez MED ASSIST - 01/12/2024 4:31 PM EDT Attempted to reach [facility]. Office was closed at this time, opens again at Monday 8:00 AM. * Telephone Encounter - Pura Banerjee CRNP - 01/12/2024 2:31 PM EDT PLEASE CALL [place] FOR RECENT LAB RESULTS ROB Agrawal, ADELA [facility] [place][note 2] documented in this encounter Plan of Treatment Upcoming Encounters Date Type Department Care Team (Late st Contact Info) Description 01/29/2024 1:00 PM EDT Office Visit Hematology/Oncology [address] [facility] [place] [address] [place] [address] Meghan Cristina CRNP [address] [place] [address] 04/09/2024 8:30 AM EDT Office Visit Cardiology, [facility] [address] [place] [address] Ian Denny MD [address] [place] [address] Health Maintenance Due Date Last Done Comments [...] Not on filedocumented as of this encounter Advance Directives Latest Code Status on File Code Status Date Activated Date Inactivated Comments Full Code 07/15/2022 2:11 PM 07/22/2022 4:34 PM This order reflects the patients wishes and were consensually agreed upon. Question Answer Comments Discussion of Advance Directives occurred with: Patient
--- OUTSIDE RECORDS SUMMARY | 2024-02-01 20:48 | External Medical Summary ---
Author Name Unknown Address Unknown Organization K09:[facility] [place] [address] Laboratory Report Ordering Provider Test Date Status ZIGGY APONTE 01/29/2024 13:36:52 Final Observation Date Value Abnormality Reference (Units ) Status SYNC LEUKOCYTES IN BLOOD BY AUTOMATED COUNT 01/29/2024 13:36:52 14.48 Above high normal 4.00-10.80 (K/uL) Final Neutrophils/100 leukocytes in Blood by Manual count 01/29/2024 13:36:52 74.0 40.0-75.0 (%) Final Lymphocytes/100 leukocytes in Blood by Manual count 01/29/2024 13:36:52 20.0 18.0-42.0 (%) Final Monocytes/100 leukocytes in Blood by Manual count 01/29/2024 13:36:52 3.0 1.0-11.0 (%) Final Metamyelocytes/100 leukocytes in Blood by Manual count 01/29/2024 13:36:52 3.0 Above high normal <=0.0 (%) Final Neutrophils [#/volume] in Blood by Manual count 01/29/2024 13:36:52 10.72 Above high normal 1.80-7.70 (K/uL) Final Lymphocytes [#/volume] in Blood by Manual count 01/29/2024 13:36:52 2.90 1.00-4.80 (K/uL) Final Monocytes [#/volume] in Blood by Manual count 01/29/2024 13:36:52 0.43 0.00-1.10 (K/uL) Final Metamyelocytes [#/volume] in Blood by Manual count 01/29/2024 13:36:52 0.43 Above high normal <=0.00 (K/uL) Final Nucleated erythrocytes/100 leukocytes [Ratio] in Blood by Automated count 01/29/2024 13:36:52 Final Performing Location [facility] [place] [address]
--- OUTSIDE RECORDS SUMMARY | 2024-02-01 20:48 | External Medical Summary | Summary of Care ---
Author Name Unknown Organization [facility] Address [address] [facility] [place] [address] Phone [phone] Care Team Providers Care Engineering Supervisor Name Role Phone Unavailable Primary Care Provider Unavailabl e Reason for Visit * Reason Comments Outpatient Testing Encounter Details Date Type Department Care Team (Late st Contact Info) Description 01/29/2024 2:10 PM EDT Laboratory Laboratory [facility] [place] [address] [place] [id number] [facility] [address] [facility] [place] [address] History of rheumatoid arthritis; Leukocytosis, unspecified type; Vitamin B12 deficiency Allergies Active Allergy Reactions Criticality Noted Date Comments Other - Drugs Diarrhea,Nausea/vomiting 10/12/18 99 Dimox documented as of this encounter (statuses as of 01/29/2024) Medications Medication Sig Dispensed Refills Start Date [...] as of this encounter (statuses as of 01/29/2024) Active Problems Problem Noted Date Diagnosed Date [...] as of this encounter (statuses as of 01/29/2024) Resolved Problems Problem Noted Date Diagnosed Date [...] as of this encounter (statuses as of 01/29/2024) Immunizations Name Administration Dates Next Due Pneumococcal Conjugate Vacci ne, 20-valent ([id number]) 08/02/2022 Pneumococcal Polysaccharide PPV23 (Pneumovax) 07/30/2020,07/23/2007 Seasonal [...] Care Team (Late st Contact Info) Description 04/09/2024 8:30 AM EDT Office Visit Cardiology, [facility] [address] [place] [address] Ian Denny MD [address] [place] [address] Pending Results Name Type Priority Associated Diagnoses Date /Time CBC WITH WBC DIFFERENTIAL Lab Routine History of rheumatoid arthritis Leukocytosis, unspecified type Vitamin B12 deficiency 01/29/2024 1:36 PM EDT COMPREHENSIVE METABOLIC PANEL Lab Routine History of rheumatoid arthritis Leukocytosis, unspecified type Vitamin B12 deficiency 01/29/2024 1:36 PM EDT ERYTHROCYTE SEDIMENTATION RATE (ESR) Lab Routine History of rheumatoid arthritis Leukocytosis, unspecified type Vitamin B12 deficiency 01/29/2024 1:36 PM EDT CRP (INFLAMMATORY MARKER) Lab Routine History of rheumatoid arthritis Leukocytosis, unspecified type Vitamin B12 deficiency 01/29/2024 1:36 PM EDT VITAMIN B12 Lab Routine History of rheumatoid arthritis Leukocytosis, unspecified type Vitamin B12 deficiency 01/29/2024 1:36 PM EDT CBC Lab Routine History of rheumatoid arthritis Leukocytosis, unspecified type Vitamin B12 deficiency 01/29/2024 1:36 PM EDT DIFFERENTIAL, AUTOMATED Lab Routine History of rheumatoid arthritis Leukocytosis, unspecified type Vitamin B12 deficiency 01/29/2024 1:36 PM EDT Health Maintenance Due Date Last Done Comments [...] as of this encounter Visit Diagnoses Diagnosis History of rheumatoid arthritis Personal history of arthritis Leukocytosis, unspecified type Vitamin B12 deficiency Other B-complex deficiencies documented in this encounter Advance Directives Latest Code Status on File Code Status Date Activated Date Inactivated Comments Full Code 07/15/2022 2:11 PM 07/22/2022 4:34 PM This order reflects the patients wishes and were consensually agreed upon. Question Answer Comments Discussion of Advance Directives occurred with: Patient
[2024-02-02 07:32] LABS: Hematocrit (blood only) 34.5 % (42.0-52.0); Hemoglobin 11.5 g/dl (14.0-18.0); Mean Corpuscular Hgb Conc 33.3 g/dL (32.0-36.0); Mean Corpuscular Volume 102.1 fL (80.0-100.0); Mean Platelet Volume 11.4 fL (9.4-12.4); Platelet Count 172 K/uL (130-400); RDW Coefficient of Variation 14.9 % (11.5-14.5); RDW Standard Deviation 55.8 fL (36.4-46.3); Red Blood Count 3.38 M/uL (4.70-6.10); White Blood Count 9.23 K/ul (4.8-10.8)
[2024-02-02 07:55] LABS: BUN Creatinine Ratio 28.9 (10-20); Calcium 8.2 mg/dl (8.6-10.3); Creatinine Clr Calc Pharmacy 68.8 ml/min; Est GFR (African American) 93.2 ml/min; Est GFR (Non-African American) 80.4 ml/min; Potassium 3.5 mmol/L (3.5-5.1)
--- NOTE | 2024-02-02 08:05 | XRay Report ---
XR tibia fibula RT 2V CLINICAL HISTORY: wound to mid salgado, assess for signs of OM COMPARISON: None FINDINGS: Right lower leg soft tissue swelling is present. No fractures within the right tibia or fi bula are present. No bony erosions are identified. Extensive vascular calcification is incidentally n oted. IMPRESSION: 1. No fractures within the right tibia or fibula. No evidence for acute osteomyelitis. 2. Right lower leg soft tissue swelling. ACT 112: Negative or not required by law. Electronically signed by: Yong Jensen M.D. 02/02/2024 8:04 AM
[2024-02-02] MEDS ORDERED: METOPROLOL TARTRATE 1 MG/ML VIAL IV PRN (12:33)
--- NOTE | 2024-02-02 12:39 | Hospitalist Progress Note ---
Date of Service February 02, 2024 Assessment & Plan (1) Sepsis: Plan: Mr. Peña is an 78-year-old male with past medical history significant for hyperlipidemia, steroid-induced hyperglycemia, diabetes not on any medications, history of pneumonia, history of SVT, history of chronic heart failure with preserved ejection fraction, longstanding persistent atrial fibrillation, aneurysm of ascending aorta, hypertension, BPH, osteoarthritis, cellulitis of right arm, polyneuropathy, history of rheumatoid arthritis who lives alone ambulates without support who presented to ED on 01/30 due to right lower extremity cellulitis and swelling. Patient was admitted for concern of sepsis. Patient reports feeling well since admission, with interval improvement in pain and swelling of RLE. Doppler negative for DVT. #Probable Sepsis #Right lower extremity cellulitis 2/2 wound POA -Lactic acid 3, now resolved WBC 11, however, chronic; remains afebrile Blood pressure is okay Gentle fluids s/p IV Rocephin Will continue with cefepime -MRSA nare negative, d/c dapto Reports continued subjective improvement Hx of CoNs on left leg Close monitor on telemetry Tib-fib xray to right tib-fib assess signs of soft tissue depth -limited to soft tissue swelling no erosins noted Wound care nurse #Acute on Chronic heart failure with preserved EF #Bilateral lower extremity swelling Chest XRAY with pleural effusions and likely edema/vascular congestion ECHO in 2021 with EF 60%; Last followed Cardiology in 2022 Reports of intermittent compliance per daughter at bedside given concern with frequent urination Received fluids for concern of sepsis Exam notable for significant edema to BLE, rather than RLE c/f cellulitis BNP ordered Continue IV lasix 20mg BID Monitor lytes, replace K >4 mag >2 phos>3 #Paroxysmal SVT #Long-term persistent atrial fibrillation controlled rates, chronic Eliquis #Borderline tachybrady syndrome Continue on metoprolol succinate, increased to 50BID with IV metoprolol prn Continue on Eliquis Monitor on Tele #Chronic Leukocytosis #Chronic Macrocytic Anemia #Vitamin B12 deficiency Follow Heme/onc, no immature cells or abnormal cells on diff. Baseline ~11.1 WBC, congruent on labs here CTM #Diabetes Mellitus type II, goal <8% Not on meds, A1C 7.6% Will place on sliding scale Diabetic diet #COPD Stable continue inhalers #Rheumatoid arthritis On prednisone 5 mg daily, 10mg prn #BPH On finasteride #Hyperlipidemia Hold Crestor while on Dapto Will resume upon dc DVT prophylaxis Eliquis Disposition Telemetry Full code Admission and Anticipated Discharge Date Admission Date: January 31, 2024 Subjective No acute events over night Reports feeling better, notable improvement in edema Denies chest pain,palpitations or other acute concerns Physical Exam Constitutional: WD/WN, vitals as above Respiratory: normal respiratory effort, lungs clear to auscultation Cardiovascular: irregularly irregular Gastrointestinal (Abdomen): normal bowel sounds, soft, nontender, no hepatosplenomegaly Skin: improvement in BLE edema, L>R, reduction in erythema of RLE, Results & Data Results & Data Vital Signs (Past 12 Hours) Vital Signs Temp Pulse Pulse Resp BP Pulse Ox O2 Del Method 02/02/24 11:30 37.2 C 122 H 23 130/91 93 Room Air 02/02/24 02:00 36.6 C 102 H 16 129/85 97 Room Air Laboratory Results Short CBC 02/02/24 Range/Units 07:07 WBC 9.23 (4.8-10.8) K/ul Hgb 11.5 L (14.0-18.0) g/dl Hct 34.5 L (42.0-52.0) % Plt Count 172 (130-400) K/uL BMP 02/02/24 07:07 Sodium 135 L Potassium 3.5 Chloride 102 Carbon Dioxide 24 BUN 26 H Creatinine 0.90 Glucose 136 H Calcium 8.2 L Medications Administered Home Medications Medication Instructions Recorded Confirmed Last Taken finasteride 5 mg tablet 5 mg PO DAILY 04/25/20 01/31/24 01/31/24 gabapentin 300 mg capsule 300 mg PO BID 04/25/20 01/31/24 01/31/24 prednisone 5 mg tablet 5 mg PO DAILY 04/25/20 01/31/24 01/31/24 spironolactone 25 mg tablet 25 mg PO DAILY 04/25/20 01/31/24 01/31/24 cholecalciferol (vitamin D3) 25 50 mcg PO DAILY 07/30/20 01/31/24 01/31/24 mcg (1,000 unit) tablet (Vitamin D3) apixaban 5 mg tablet 5 mg PO BID 12/31/22 01/31/24 01/31/24 metoprolol succinate 50 mg 25 mg PO BID 12/31/22 01/31/24 01/31/24 tablet,extended release 24 hr pantoprazole 40 mg tablet,delayed 40 mg PO DAILY 12/31/22 01/31/24 01/31/24 release furosemide 20 mg tablet (Lasix) 20 mg PO DAILY #30 tabs 01/06/23 01/31/24 01/31/24 cyanocobalamin (vitamin B-12) 1,000 mcg PO DAILY 01/31/24 01/31/24 01/31/24 1,000 mcg tablet (Vitamin B-12) fluticasone 500 mcg-salmeterol 50 1 inh inhalation BID 01/31/24 01/31/24 01/31/24 mcg/dose blistr powdr for inhalation (Wixela Inhub) rosuvastatin 20 mg tablet (Crestor) 20 mg PO DAILY 01/31/24 01/31/24 01/31/24 Active Medications Generic Name Dose Route Start Last Admin Trade Name Freq PRN Reason Stop Dose Admin Apixaban 5 mg 02/01/24 09:00 02/02/24 07:48 Apixaban 5 Mg Tablet PO 03/02/24 08:59 5 mg BID STEPHEN Administration Cyanocobalamin 1,000 mcg 02/01/24 09:00 02/02/24 07:48 Cyanocobalamin (B-12) 500 Mcg Tablet PO 03/02/24 08:59 1,000 mcg DAILY STEPHEN Administration Finasteride 5 mg 02/01/24 09:00 02/02/24 07:49 Finasteride 5 Mg Tab PO 03/02/24 08:59 5 mg DAILY STEPHEN Administration Fluticasone/Vilanterol 1 puffs 02/01/24 09:00 02/02/24 07:50 Fluticasone/Vilanterol 200/25mcg 14 Puffs/Inhaler INH 03/02/24 08:59 1 puffs DAILY STEPHEN Administration Furosemide 20 mg 02/01/24 17:00 02/02/24 07:49 Furosemide 20 Mg Tab PO 03/02/24 16:59 20 mg BID17 STEPHEN Administration Gabapentin 300 mg 02/01/24 09:00 02/02/24 07:49 Gabapentin 300 Mg Cap PO 03/02/24 08:59 300 mg BID STEPHEN Administration Cefepime HCl 2,000 mg/ Syringe 20 mls @ 5 mls/min 02/01/24 09:00 02/02/24 07:50 IV 02/08/24 08:59 5 mls/min Q12H STEPHEN Administration Protocol Insulin Aspart 0 units 02/01/24 07:30 02/02/24 12:09 Insulin Aspart Per Unit Charge SC 03/02/24 07:29 2 units ACHS STEPHEN Administration Pantoprazole Sodium 40 mg 02/01/24 09:00 02/02/24 07:49 Pantoprazole 40 Mg Tab PO 03/02/24 08:59 40 mg DAILY STEPHEN Administration Prednisone 5 mg 02/01/24 09:00 02/02/24 07:48 Prednisone 5 Mg Tab PO 03/02/24 08:59 5 mg DAILY STEPHEN Administration Vitamin D 50 mcg 02/01/24 09:00 02/02/24 07:49 Cholecalciferol 25 Mcg (1000 Units) Tab PO 03/02/24 08:59 50 mcg DAILY STEPHEN Administration
[2024-02-02] MEDS: METOPROLOL SUCC 25MG EXT REL TAB PO STA (14:47)
[2024-02-02] MEDS: POTASSIUM CHLORIDE CRTAB 20 MEQ TABCR PO STA (15:59)
[2024-02-02 17:15] LABS: BUN Creatinine Ratio 27.8 (10-20); Calcium 8.3 mg/dl (8.6-10.3); Creatinine Clr Calc Pharmacy 68.8 ml/min; Est GFR (African American) 93.2 ml/min; Est GFR (Non-African American) 80.4 ml/min; Potassium 3.5 mmol/L (3.5-5.1)
[2024-02-03 06:42] LABS: Hematocrit (blood only) 35.1 % (42.0-52.0); Hemoglobin 11.5 g/dl (14.0-18.0); Mean Corpuscular Hgb Conc 32.8 g/dL (32.0-36.0); Mean Corpuscular Volume 103.8 fL (80.0-100.0); Mean Platelet Volume 11.7 fL (9.4-12.4); Platelet Count 184 K/uL (130-400); RDW Coefficient of Variation 14.6 % (11.5-14.5); RDW Standard Deviation 55.1 fL (36.4-46.3); Red Blood Count 3.38 M/uL (4.70-6.10); White Blood Count 10.36 K/ul (4.8-10.8)
[2024-02-03 07:07] LABS: BUN Creatinine Ratio 28.3 (10-20); Calcium 8.5 mg/dl (8.6-10.3); Creatinine Clr Calc Pharmacy 67.3 ml/min; Est GFR (African American) 90.7 ml/min; Est GFR (Non-African American) 78.3 ml/min; Phosphorus 3.2 mg/dl (2.5-4.9); Potassium 3.6 mmol/L (3.5-5.1)
[2024-02-03] MEDS: METOPROLOL SUCC 50MG EXT REL TAB PO SCH (09:01)
[2024-02-03] MEDS: POTASSIUM CHLORIDE CRTAB 20 MEQ TABCR PO STA (09:03)
[2024-02-03] MEDS: FUROSEMIDE 40 MG TAB PO SCH (09:17)
[2024-02-03] MEDS: ROSUVASTATIN CALCIUM 20 MG TAB PO SCH (09:17)
[2024-02-03] MEDS: SPIRONOLACTONE 25 MG TAB PO SCH (09:18)
--- NOTE | 2024-02-03 10:31 | Hospitalist Progress Note ---
Date of Service February 03, 2024 Assessment & Plan (1) Sepsis: Plan: Mr. Peña is an 78-year-old male with past medical history significant for hyperlipidemia, steroid-induced hyperglycemia, diabetes not on any medications, history of pneumonia, history of SVT, history of chronic heart failure with preserved ejection fraction, longstanding persistent atrial fibrillation, aneurysm of ascending aorta, hypertension, BPH, osteoarthritis, cellulitis of right arm, polyneuropathy, history of rheumatoid arthritis who lives alone ambulates without support who presented to ED on 01/30 due to right lower extremity cellulitis and swelling. Patient was admitted for concern of sepsis. Patient reports feeling well since admission, with interval improvement in pain and swelling of RLE. Doppler negative for DVT. #Probable Sepsis *resolved #Right lower extremity cellulitis 2/2 wound POA *improving -Lactic acid 3, now resolved WBC 11, however, chronic; remains afebrile Blood pressure is okay Gentle fluids s/p IV Rocephin Will continue with cefepime -MRSA nare negative, d/c dapto Reports continued subjective improvement Hx of CoNs on left leg Close monitor on telemetry Tib-fib xray to right tib-fib assess signs of soft tissue depth -limited to soft tissue swelling no erosions noted Wound care nurse #Acute on Chronic heart failure with preserved EF #Bilateral lower extremity swelling Chest XRAY with pleural effusions and likely edema/vascular congestion ECHO in 2021 with EF 60%; Last followed Cardiology in 2022 Reports of intermittent compliance per daughter at bedside given concern with frequent urination Received fluids for concern of sepsis Exam notable for significant edema to BLE, rather than RLE c/f cellulitis BNP 137 Continue IV lasix 20mg BID, increased to 40 BID Resume home spironolactone Cards consult for HF and a fib for better optimization prior to dispo Monitor lytes, replace K >4 mag >2 phos>3 #Paroxysmal SVT #Long-term persistent atrial fibrillation controlled rates, chronic Eliquis #Borderline tachybrady syndrome Continue on metoprolol succinate 50BID with IV metoprolol prn Continue on Eliquis Monitor on Tele #Chronic Leukocytosis #Chronic Macrocytic Anemia #Vitamin B12 deficiency Follow Heme/onc, no immature cells or abnormal cells on diff. Baseline ~11.1 WBC, congruent on labs here CTM #Diabetes Mellitus type II, goal <8% Not on meds, A1C 7.6% Will place on sliding scale Diabetic diet #COPD Stable continue inhalers #Rheumatoid arthritis On prednisone 5 mg daily, 10mg prn #BPH On finasteride #Hyperlipidemia Hold Crestor while on Dapto Resume today DVT prophylaxis Eliquis Disposition Telemetry Full code Admission and Anticipated Discharge Date Admission Date: January 31, 2024 Subjective Reports worsening of swelling overnight, but improvement in pain of RLE notes redness is markedly improved, but worried about the edema Denies chest pain, palpitations, dizziness, or other acute concerns Physical Exam Constitutional: WD/WN, vitals as above Respiratory: normal respiratory effort, lungs clear to auscultation Cardiovascular: irregularly irregular Gastrointestinal (Abdomen): normal bowel sounds, soft, nontender, no hepatosplenomegaly Skin: edema appears worse on exam, however, comparison noted that patient was laying flat the prior day for some time, and today's exam was in bedside chair 2-3+ pitting edema bilaterally Results & Data Results & Data Vital Signs (Past 12 Hours) Vital Signs Temp Pulse Pulse Resp BP BP Pulse Ox 02/03/24 07:43 37.2 C 103 H 18 148/80 H 97 02/03/24 07:10 02/03/24 07:07 92 H 02/03/24 03:41 36.5 C 87 18 137/79 97 02/03/24 02:37 O2 Del Method 02/03/24 07:43 Room Air 02/03/24 07:10 Room Air 02/03/24 07:07 02/03/24 03:41 Room Air 02/03/24 02:37 Room Air Laboratory Results Short CBC 02/03/24 Range/Units 05:59 WBC 10.36 (4.8-10.8) K/ul Hgb 11.5 L (14.0-18.0) g/dl Hct 35.1 L (42.0-52.0) % Plt Count 184 (130-400) K/uL BMP 02/02/24 02/03/24 16:18 05:59 Sodium 133 L 137 Potassium 3.5 3.6 Chloride 100 101 Carbon Dioxide 24 26 BUN 25 H 26 H Creatinine 0.90 0.92 Glucose 166 H 140 H Calcium 8.3 L 8.5 L Medications Administered Home Medications Medication Instructions Recorded Confirmed Last Taken finasteride 5 mg tablet 5 mg PO DAILY 04/25/20 01/31/24 01/31/24 gabapentin 300 mg capsule 300 mg PO BID 04/25/20 01/31/24 01/31/24 prednisone 5 mg tablet 5 mg PO DAILY 04/25/20 01/31/24 01/31/24 spironolactone 25 mg tablet 25 mg PO DAILY 04/25/20 01/31/24 01/31/24 cholecalciferol (vitamin D3) 25 50 mcg PO DAILY 07/30/20 01/31/24 01/31/24 mcg (1,000 unit) tablet (Vitamin D3) apixaban 5 mg tablet 5 mg PO BID 12/31/22 01/31/24 01/31/24 metoprolol succinate 50 mg 25 mg PO BID 12/31/22 01/31/24 01/31/24 tablet,extended release 24 hr pantoprazole 40 mg tablet,delayed 40 mg PO DAILY 12/31/22 01/31/24 01/31/24 release furosemide 20 mg tablet (Lasix) 20 mg PO DAILY #30 tabs 01/06/23 01/31/24 01/31/24 cyanocobalamin (vitamin B-12) 1,000 mcg PO DAILY 01/31/24 01/31/24 01/31/24 1,000 mcg tablet (Vitamin B-12) fluticasone 500 mcg-salmeterol 50 1 inh inhalation BID 01/31/24 01/31/24 01/31/24 mcg/dose blistr powdr for inhalation (Wixela Inhub) rosuvastatin 20 mg tablet (Crestor) 20 mg PO DAILY 01/31/24 01/31/24 01/31/24 Active Medications Generic Name Dose Route Start Last Admin Trade Name Freq PRN Reason Stop Dose Admin Apixaban 5 mg 02/01/24 09:00 02/03/24 09:02 Apixaban 5 Mg Tablet PO 03/02/24 08:59 5 mg BID STEPHEN Administration Cyanocobalamin 1,000 mcg 02/01/24 09:00 02/03/24 09:02 Cyanocobalamin (B-12) 500 Mcg Tablet PO 03/02/24 08:59 1,000 mcg DAILY STEPHEN Administration Finasteride 5 mg 02/01/24 09:00 02/03/24 09:03 Finasteride 5 Mg Tab PO 03/02/24 08:59 5 mg DAILY STEPHEN Administration Fluticasone/Vilanterol 1 puffs 02/01/24 09:00 02/03/24 09:02 Fluticasone/Vilanterol 200/25mcg 14 Puffs/Inhaler INH 03/02/24 08:59 1 puffs DAILY STEPHEN Administration Furosemide 40 mg 02/03/24 09:00 02/03/24 09:17 Furosemide 40 Mg Tab PO 03/04/24 08:59 40 mg BID17 STEPHEN Administration Gabapentin 300 mg 02/01/24 09:00 02/03/24 09:02 Gabapentin 300 Mg Cap PO 03/02/24 08:59 300 mg BID STEPHEN Administration Cefepime HCl 2,000 mg/ Syringe 20 mls @ 5 mls/min 02/01/24 09:00 02/03/24 09:01 IV 02/08/24 08:59 5 mls/min Q12H STEPHEN Administration Protocol Insulin Aspart 0 units 02/01/24 07:30 02/03/24 09:12 Insulin Aspart Per Unit Charge SC 03/02/24 07:29 3 units ACHS STEPHEN Administration Metoprolol Succinate 50 mg 02/03/24 09:00 02/03/24 09:01 Metoprolol Succ 50mg Ext Rel Tab PO 03/04/24 08:59 50 mg BID STEPHEN Administration Pantoprazole Sodium 40 mg 02/01/24 09:00 02/03/24 09:03 Pantoprazole 40 Mg Tab PO 03/02/24 08:59 40 mg DAILY STEPHEN Administration Prednisone 5 mg 02/01/24 09:00 02/03/24 09:02 Prednisone 5 Mg Tab PO 03/02/24 08:59 5 mg DAILY STEPHEN Administration Rosuvastatin Calcium 20 mg 02/03/24 09:00 02/03/24 09:17 Rosuvastatin Calcium 20 Mg Tab PO 03/04/24 08:59 20 mg DAILY STEPHEN Administration Spironolactone 25 mg 02/03/24 09:00 02/03/24 09:18 Spironolactone 25 Mg Tab PO 03/04/24 08:59 25 mg DAILY STEPHEN Administration Vitamin D 50 mcg 02/01/24 09:00 02/03/24 09:01 Cholecalciferol 25 Mcg (1000 Units) Tab PO 03/02/24 08:59 50 mcg DAILY STEPHEN Administration
[2024-02-03 17:56] LABS: BUN Creatinine Ratio 29.5 (10-20); Creatinine Clr Calc Pharmacy 65.2 ml/min; Est GFR (African American) 87.3 ml/min; Est GFR (Non-African American) 75.3 ml/min; Potassium 4.1 mmol/L (3.5-5.1)
--- NOTE | 2024-02-03 19:46 | Cardiology Consultation ---
Date of Consultation February 03, 2024 Assessment & Plan (1) Bilateral cellulitis of lower leg: (2) Acute on chronic heart failure with preserved ejection fraction (HFpEF): * Continue rate control for permanent atrial fibrillation with prior to hospital treatment, metoprolol succinate 50 mg twice daily, Eliquis 5 mg twice daily for stroke prophylaxis * Patient previously on furosemide 20 mg by mouth daily at home * Proceed with trial of IV diuretic given progressive lower extremity edema over several weeks. Will start with Bumex 1 mg IV tomorrow morning. * Continue spironolactone 25 mg daily monitor sodium. * Continue cefepime for cellulitis. * DVT prophylaxis: Patient is fully anticoagulated on Eliquis. History of Present Illness Attending Physician: India Johns MD History of Present Illness Mr Peña is an 78-year-old male seen in cardiology consultation per the request of Dr. Johns for the evaluation of atrial fibrillation and lower extremity edema. Patient reports several weeks of progressive edema in his lower legs and superimposed redness. He presented to the emergency department on 01/31/2024 and was admitted for further treatment of cellulitis. Per review of most recent outpatient note which was in March, he has a longstanding history of permanent atrial fibrillation with controlled ventricular rates and is on Eliquis for stroke prophylaxis. He also has a history of paroxysmal atrial fibrillation. History includes: 1. Paroxysmal SVT 2. Long-term persistent atrial fibrillation controlled rates, chronic Eliquis 3. Borderline tachybrady syndrome 4. COPD on chronic prednisone therapy 5. Septic right elbow July 2022 with result Allergies Allergy/AdvReac Type Severity Reaction Status Date / Time No Known Allergies Allergy Verified 01/31/24 21:44 Home Medications Medication Instructions Recorded Confirmed Type finasteride 5 mg tablet 5 mg PO DAILY 04/25/20 01/31/24 History gabapentin 300 mg capsule 300 mg PO BID 04/25/20 01/31/24 History prednisone 5 mg tablet 5 mg PO DAILY 04/25/20 01/31/24 History spironolactone 25 mg tablet 25 mg PO DAILY 04/25/20 01/31/24 History cholecalciferol (vitamin D3) 25 50 mcg PO DAILY 07/30/20 01/31/24 History mcg (1,000 unit) tablet (Vitamin D3) apixaban 5 mg tablet 5 mg PO BID 12/31/22 01/31/24 History metoprolol succinate 50 mg 25 mg PO BID 12/31/22 01/31/24 History tablet,extended release 24 hr pantoprazole 40 mg tablet,delayed 40 mg PO DAILY 12/31/22 01/31/24 History release furosemide 20 mg tablet (Lasix) 20 mg PO DAILY #30 tabs 01/06/23 01/31/24 Rx cyanocobalamin (vitamin B-12) 1,000 mcg PO DAILY 01/31/24 01/31/24 History 1,000 mcg tablet (Vitamin B-12) fluticasone 500 mcg-salmeterol 50 1 inh inhalation BID 01/31/24 01/31/24 History mcg/dose blistr powdr for inhalation (Wixela Inhub) rosuvastatin 20 mg tablet (Crestor) 20 mg PO DAILY 01/31/24 01/31/24 History Patient History Medical History (Updated 02/03/24 @ 19:43 by Nicolás Reyes DO) BPH (benign prostatic hyperplasia) Ascending aorta enlargement Hx of supraventricular tachycardia COPD (chronic obstructive pulmonary disease) Rheumatoid arthritis Surgical History History of thoracotomy H/O inguinal hernia repair Family History Father Heart disease Social History Smoking Status: Former smoker Tobacco Type: Cigarettes Cigarettes Per Day: 1 PPD; Smoking End Date: "years ago"; Second Hand Exposure: No; Do You Dip or Chew Tobacco: No; Hx Alcohol Use: No Hx Substance Use: No Preferred Language: Welsh Communication Ability: Effective Research/Program Director Required: No Beliefs That Will Affect Care: None Current Living Situation: Alone Current Living Situation Comment: Lives alone, son lives in close proximity Other Information That Helps Us Care for You: No Feels Safe at Home: Yes Safety Concerns: Feels Safe At This Time Assistive Devices: None Review of Systems Review of Systems: All systems reviewed & are unremarkable except as noted in HPI & below Physical Exam Physical Exam: General: no acute distress and stated age Eyes: conjunctiva are pink and non-injected, sclera clear Neck: normal jugular venous pulse, no hepatojugular reflux Chest: normal shape and normal respiratory effort Lungs: clear to auscultation and percussion Cardiac Exam: -Irregular rhythm, 1/6 systolic murmur,2-3+ bilateral lower extremity edema with erythema to the knees Abdomen: abdomen soft, non-tender, no abnormal masses and no hepatosplenomegaly Musculoskeletal: no gait disturbance, no weakness Extremities: no edema and no cyanosis Neuro:awake, conversant, follows commands, no focal motor deficits Psych: appropriate affect and insight. Results & Data Vital Signs (Past 12 Hours) Vital Signs Temp Pulse Pulse Resp BP Pulse Ox O2 Del Method 02/03/24 16:21 36.4 C L 74 18 116/76 98 Room Air 02/03/24 15:24 84 02/03/24 11:56 36.8 C 84 16 129/85 96 Room Air 02/03/24 07:43 37.2 C 103 H 18 148/80 H 97 Room Air Laboratory Results CBC 02/03/24 Range/Units 05:59 WBC 10.36 (4.8-10.8) K/ul RBC 3.38 L (4.70-6.10) M/uL Hgb 11.5 L (14.0-18.0) g/dl Hct 35.1 L (42.0-52.0) % Plt Count 184 (130-400) K/uL Comprehensive Metabolic Panel 02/03/24 02/03/24 Range/Units 05:59 17:00 Sodium 137 134 L (136-145) mmol/L Potassium 3.6 4.1 (3.5-5.1) mmol/L Chloride 101 99 (98-107) mmol/L Carbon Dioxide 26 25 (21-32) mmol/L BUN 26 H 28 H (6-23) mg/dl Creatinine 0.92 0.95 (0.6-1.4) mg/dl Glucose 140 H 164 H (70-99(Fasting)) mg/dl Calcium 8.5 L 9.0 (8.6-10.3) mg/dl Intake and Output 02/03/24 02/03/24 02/03/24 06:59 14:59 22:59 Intake Total 100 / 100 140 / 140 Output Total 1300 / 2900 101 / 101 Balance -1200 / -2800 39 / 39 Intake: Oral 100 / 100 140 / 140 Output: Urine 100 / 100 Urine Amount (Catheter) 1300 / 2900 External 1300 / 2900 # Bowel Movements 1 / 1 Diagnostic Findings Transthoracic echocardiogram performed 02/02/2024 and interpret independently: Rate controlled atrial fibrillation present during the study Mild concentric left ventricular hypertrophy is present The left wall motion is normal. The left atrium is severely dilated Moderate aortic valve sclerosis without stenosis is present Mild mitral regurgitation is present. 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
[2024-02-03] MEDS: POTASSIUM CHLORIDE CRTAB 20 MEQ TABCR PO SCH (21:57)
[2024-02-04 05:59] LABS: Hematocrit (blood only) 31.7 % (42.0-52.0); Hemoglobin 10.6 g/dl (14.0-18.0); Mean Corpuscular Hemoglobin 34.2 pg (25.0-34.0); Mean Corpuscular Hgb Conc 33.4 g/dL (32.0-36.0); Mean Corpuscular Volume 102.3 fL (80.0-100.0); Mean Platelet Volume 11.7 fL (9.4-12.4); Platelet Count 175 K/uL (130-400); RDW Coefficient of Variation 14.6 % (11.5-14.5); RDW Standard Deviation 53.6 fL (36.4-46.3); White Blood Count 9.79 K/ul (4.8-10.8)
[2024-02-04 06:22] LABS: Est GFR (African American) 93.2 ml/min; Potassium 3.7 mmol/L (3.5-5.1)
[2024-02-04 06:23] LABS: BUN Creatinine Ratio 32.2 (10-20); Calcium 7.9 mg/dl (8.6-10.3); Creatinine Clr Calc Pharmacy 68.6 ml/min; Est GFR (Non-African American) 80.4 ml/min; Phosphorus 2.6 mg/dl (2.5-4.9)
[2024-02-04] MEDS: BUMETANIDE 1 MG in SYRINGE 0 ML IV SCH (08:29)
[2024-02-04] MEDS: POTASSIUM CHLORIDE CRTAB 20 MEQ TABCR PO SCH (08:31)
--- NOTE | 2024-02-04 09:53 | Hospitalist Progress Note ---
Date of Service February 04, 2024 Assessment & Plan (1) Sepsis: Plan: Mr. Peña is an 78-year-old male with past medical history significant for hyperlipidemia, steroid-induced hyperglycemia, diabetes not on any medications, history of pneumonia, history of SVT, history of chronic heart failure with preserved ejection fraction, longstanding persistent atrial fibrillation, aneurysm of ascending aorta, hypertension, BPH, osteoarthritis, cellulitis of right arm, polyneuropathy, history of rheumatoid arthritis who lives alone ambulates without support who presented to ED on 01/30 due to right lower extremity cellulitis and swelling. Patient was admitted for concern of sepsis. Patient notes significant improvement in lower extremity redness and pain, as well as marginal improvement in swelling. Cardiology transitioned from IV lasix to Bumex this am, will assess response. #Probable Sepsis *resolved #Right lower extremity cellulitis 2/2 wound POA *improving -Lactic acid 3, now resolved WBC 11, however, chronic; remains afebrile Blood pressure is okay Gentle fluids s/p IV Rocephin Will continue with cefepime -MRSA nare negative, d/c dapto Reports continued subjective improvement Hx of CoNs on left leg Close monitor on telemetry Tib-fib xray to right tib-fib assess signs of soft tissue depth -limited to soft tissue swelling no erosions noted Wound care nurse consult #Acute on Chronic heart failure with preserved EF #Bilateral lower extremity swelling Chest XRAY with pleural effusions and likely edema/vascular congestion ECHO in 2021 with EF 60%; Last followed Cardiology in 2022 Reports of intermittent compliance per daughter at bedside given concern with frequent urination Received fluids for concern of sepsis Exam notable for significant edema to BLE, rather than RLE c/f cellulitis BNP 137 Initial management with IV lasix Resume home spironolactone Cards consult for HF and a fib for better optimization prior to dispo -Metoprolol 50mg XL BID (increased since admission), Bumex 1 IV this am, monitor response Monitor lytes, replace K >4 mag >2 phos>3 K 40mg BID at this time. #Paroxysmal SVT #Long-term persistent atrial fibrillation controlled rates, chronic Eliquis #Borderline tachybrady syndrome Continue on metoprolol succinate 50BID with IV metoprolol prn Continue on Eliquis Monitor on Tele #Chronic Leukocytosis #Chronic Macrocytic Anemia #Vitamin B12 deficiency Follow Heme/onc, no immature cells or abnormal cells on diff. Baseline ~11.1 WBC, congruent on labs here CTM #Diabetes Mellitus type II, goal <8% Not on meds, A1C 7.6% Will place on sliding scale Diabetic diet #COPD Stable continue inhalers #Rheumatoid arthritis On prednisone 5 mg daily, 10mg prn #BPH On finasteride #Hyperlipidemia continue statin DVT prophylaxis Eliquis Disposition Telemetry Full code Admission and Anticipated Discharge Date Admission Date: January 31, 2024 Subjective NAEO Reports feeling notably better--states that the redness of his right leg is near resolved and it is no longer painful, He reports some improvement in edema, but discussed transition to alternate iv diuertic, patient denies any further questions Denies chest pain palpitations or other acute concerns Physical Exam Constitutional: WD/WN, vitals as above Respiratory: normal respiratory effort, lungs clear to auscultation Cardiovascular: irregularly irregular Skin: resolution of right lower extremity erythema; wound on anterior salgado with clean bandage in place, swelling still 2+ BLE below the knee Results & Data Results & Data Vital Signs (Past 12 Hours) Vital Signs Temp Pulse Pulse Resp BP Pulse Ox O2 Del Method 02/04/24 07:27 37.2 C 76 18 110/74 96 Room Air 02/04/24 07:25 84 02/04/24 03:42 36.5 C 87 20 114/79 92 Room Air 02/03/24 23:10 36.6 C 86 20 110/68 94 Room Air 02/03/24 22:52 Room Air 02/03/24 22:22 85 Laboratory Results Short CBC 02/04/24 Range/Units 05:30 WBC 9.79 (4.8-10.8) K/ul Hgb 10.6 L (14.0-18.0) g/dl Hct 31.7 L (42.0-52.0) % Plt Count 175 (130-400) K/uL BMP 02/03/24 02/04/24 17:00 05:30 Sodium 134 L 135 L Potassium 4.1 3.7 Chloride 99 101 Carbon Dioxide 25 25 BUN 28 H 29 H Creatinine 0.95 0.90 Glucose 164 H 116 H Calcium 9.0 7.9 L Medications Administered Home Medications Medication Instructions Recorded Confirmed Last Taken finasteride 5 mg tablet 5 mg PO DAILY 04/25/20 01/31/24 01/31/24 gabapentin 300 mg capsule 300 mg PO BID 04/25/20 01/31/24 01/31/24 prednisone 5 mg tablet 5 mg PO DAILY 04/25/20 01/31/24 01/31/24 spironolactone 25 mg tablet 25 mg PO DAILY 04/25/20 01/31/24 01/31/24 cholecalciferol (vitamin D3) 25 50 mcg PO DAILY 07/30/20 01/31/24 01/31/24 mcg (1,000 unit) tablet (Vitamin D3) apixaban 5 mg tablet 5 mg PO BID 12/31/22 01/31/24 01/31/24 metoprolol succinate 50 mg 25 mg PO BID 12/31/22 01/31/24 01/31/24 tablet,extended release 24 hr pantoprazole 40 mg tablet,delayed 40 mg PO DAILY 12/31/22 01/31/24 01/31/24 release furosemide 20 mg tablet (Lasix) 20 mg PO DAILY #30 tabs 01/06/23 01/31/24 01/31/24 cyanocobalamin (vitamin B-12) 1,000 mcg PO DAILY 01/31/24 01/31/24 01/31/24 1,000 mcg tablet (Vitamin B-12) fluticasone 500 mcg-salmeterol 50 1 inh inhalation BID 01/31/24 01/31/24 01/31/24 mcg/dose blistr powdr for inhalation (Wixela Inhub) rosuvastatin 20 mg tablet (Crestor) 20 mg PO DAILY 01/31/24 01/31/24 01/31/24 Active Medications Generic Name Dose Route Start Last Admin Trade Name Freq PRN Reason Stop Dose Admin Apixaban 5 mg 02/01/24 09:00 02/04/24 08:33 Apixaban 5 Mg Tablet PO 03/02/24 08:59 5 mg BID STEPHEN Administration Cyanocobalamin 1,000 mcg 02/01/24 09:00 02/04/24 08:32 Cyanocobalamin (B-12) 500 Mcg Tablet PO 03/02/24 08:59 1,000 mcg DAILY STEPHEN Administration Finasteride 5 mg 02/01/24 09:00 02/04/24 08:32 Finasteride 5 Mg Tab PO 03/02/24 08:59 5 mg DAILY STEPHEN Administration Fluticasone/Vilanterol 1 puffs 02/01/24 09:00 02/04/24 08:29 Fluticasone/Vilanterol 200/25mcg 14 Puffs/Inhaler INH 03/02/24 08:59 1 puffs DAILY STEPHEN Administration Gabapentin 300 mg 02/01/24 09:00 02/04/24 08:31 Gabapentin 300 Mg Cap PO 03/02/24 08:59 300 mg BID STEPHEN Administration Cefepime HCl 2,000 mg/ Syringe 20 mls @ 5 mls/min 02/01/24 09:00 02/04/24 08:29 IV 02/08/24 08:59 5 mls/min Q12H STEPHEN Administration Protocol Bumetanide 1 mg/ Syringe 4 mls @ 4 mls/min 02/04/24 09:00 02/04/24 08:29 IV 03/05/24 08:59 4 mls/min DAILY STEPHEN Administration Insulin Aspart 0 units 02/01/24 07:30 02/04/24 08:28 Insulin Aspart Per Unit Charge SC 03/02/24 07:29 Not Given ACHS STEPHEN Metoprolol Succinate 50 mg 02/03/24 09:00 02/04/24 08:31 Metoprolol Succ 50mg Ext Rel Tab PO 03/04/24 08:59 50 mg BID STEPHEN Administration Pantoprazole Sodium 40 mg 02/01/24 09:00 02/04/24 08:33 Pantoprazole 40 Mg Tab PO 03/02/24 08:59 40 mg DAILY STEPHEN Administration Potassium Chloride 40 meq 02/04/24 09:00 02/04/24 08:31 Potassium Chloride Crtab 20 Meq Tabcr PO 03/05/24 08:59 40 meq BID STEPHEN Administration Prednisone 5 mg 02/01/24 09:00 02/04/24 08:29 Prednisone 5 Mg Tab PO 03/02/24 08:59 5 mg DAILY STEPHEN Administration Rosuvastatin Calcium 20 mg 02/03/24 09:00 02/04/24 08:30 Rosuvastatin Calcium 20 Mg Tab PO 03/04/24 08:59 20 mg DAILY STEPHEN Administration Spironolactone 25 mg 02/03/24 09:00 02/04/24 08:30 Spironolactone 25 Mg Tab PO 03/04/24 08:59 25 mg DAILY STEPHEN Administration Vitamin D 50 mcg 02/01/24 09:00 02/04/24 08:30 Cholecalciferol 25 Mcg (1000 Units) Tab PO 03/02/24 08:59 50 mcg DAILY STEPHEN Administration
--- NOTE | 2024-02-04 09:54 | Cardiology Progress Note ---
Date of Service February 04, 2024 Assessment & Plan (1) Bilateral cellulitis of lower leg: (2) Acute on chronic heart failure with preserved ejection fraction (HFpEF): Plan: * Also history of permanent atrial fibrillation documented in progress note on 02/03/2024, patient is in sinus rhythm today! Continue metoprolol succinate 50 mg twice daily, Eliquis 5 mg twice daily for stroke prophylaxis * Patient previously on furosemide 20 mg by mouth daily at home * Proceed with trial of IV diuretic given progressive lower extremity edema over several weeks. Will start with Bumex 1 mg IV a.m. of 02/04/2024. Potassium supplementation ordered by primary service. * Continue spironolactone 25 mg daily monitor sodium. * Continue cefepime for cellulitis. * DVT prophylaxis: Patient is fully anticoagulated on Eliquis. Admission and Anticipated Discharge Date Admission Date: January 31, 2024 Subjective Patient seen in cardiology follow-up. Enjoying his pancake and ate breakfast. Telemetry reveals that he had reverted to sinus rhythm since I had seen him last evening with frequent PACs. Legs still edematous and erythematous. No fever. Physical Exam Physical Exam: General: no acute distress and stated age Eyes: conjunctiva are pink and non-injected, sclera clear Neck: normal jugular venous pulse, no hepatojugular reflux Chest: normal shape and normal respiratory effort Lungs: clear to auscultation and percussion Cardiac Exam: -Irregular rhythm, 1/6 systolic murmur,2-3+ bilateral lower extremity edema with erythema to the knees Abdomen: abdomen soft, non-tender, no abnormal masses and no hepatosplenomegaly Musculoskeletal: no gait disturbance, no weakness Extremities: 2+ lower extremity edema, erythema Neuro:awake, conversant, follows commands, no focal motor deficits Psych: appropriate affect and insight. Results & Data Vital Signs (Past 12 Hours) Vital Signs Temp Pulse Pulse Resp BP Pulse Ox O2 Del Method 02/04/24 09:27 Room Air 02/04/24 07:27 37.2 C 76 18 110/74 96 Room Air 02/04/24 07:25 84 02/04/24 03:42 36.5 C 87 20 114/79 92 Room Air 02/03/24 23:10 36.6 C 86 20 110/68 94 Room Air 02/03/24 22:52 Room Air 02/03/24 22:22 85 Laboratory Results CBC 02/04/24 Range/Units 05:30 WBC 9.79 (4.8-10.8) K/ul RBC 3.10 L (4.70-6.10) M/uL Hgb 10.6 L (14.0-18.0) g/dl Hct 31.7 L (42.0-52.0) % Plt Count 175 (130-400) K/uL Comprehensive Metabolic Panel 02/03/24 02/04/24 Range/Units 17:00 05:30 Sodium 134 L 135 L (136-145) mmol/L Potassium 4.1 3.7 (3.5-5.1) mmol/L Chloride 99 101 (98-107) mmol/L Carbon Dioxide 25 25 (21-32) mmol/L BUN 28 H 29 H (6-23) mg/dl Creatinine 0.95 0.90 (0.6-1.4) mg/dl Glucose 164 H 116 H (70-99(Fasting)) mg/dl Calcium 9.0 7.9 L (8.6-10.3) mg/dl Intake and Output 02/03/24 02/04/24 02/04/24 22:59 06:59 14:59 Intake Total 120 / 500 240 / 500 Output Total 400 / 501 Balance -280 / -1 240 / -1 Intake: Oral 120 / 500 240 / 500 Output: Urine 400 / 500 Other: Weight 86.2 kg Weight Measurement Method Built in [facility]
[2024-02-04] MEDS: ACETAMINOPHEN 325 MG TAB PO PRN (22:26)
[2024-02-05 03:35] LABS: Hematocrit (blood only) 31.6 % (42.0-52.0); Hemoglobin 10.5 g/dl (14.0-18.0); Mean Corpuscular Hgb Conc 33.2 g/dL (32.0-36.0); Mean Corpuscular Volume 102.3 fL (80.0-100.0); Mean Platelet Volume 11.8 fL (9.4-12.4); Platelet Count 195 K/uL (130-400); RDW Coefficient of Variation 14.5 % (11.5-14.5); RDW Standard Deviation 53.4 fL (36.4-46.3); Red Blood Count 3.09 M/uL (4.70-6.10); White Blood Count 9.45 K/ul (4.8-10.8)
[2024-02-05 03:51] LABS: BUN Creatinine Ratio 27.5 (10-20); Creatinine Clr Calc Pharmacy 60.6 ml/min; Est GFR (African American) 80.1 ml/min; Est GFR (Non-African American) 69.1 ml/min; Magnesium 2.1 mg/dl (1.7-2.4); Potassium 4.3 mmol/L (3.5-5.1)
--- NOTE | 2024-02-05 13:06 | Cardiology Progress Note ---
Date of Service February 05, 2024 Assessment & Plan (1) Bilateral cellulitis of lower leg: (2) Acute on chronic heart failure with preserved ejection fraction (HFpEF): Plan: * Plan History of permanent atrial fibrillation documented in progress note on 02/03/2024, patient has reverted back to NSR. Continue metoprolol succinate 50 mg twice daily, Eliquis 5 mg twice daily for stroke prophylaxis * Patient previously on furosemide 20 mg by mouth daily at home * Interval improvement in LE edema with addition of IV diuretic therapy. Does not appear that I+O's were monitored since yesterday. * Continue bumex 1 mg IV today with Potassium supplementation * Continue spironolactone 25 mg daily monitor sodium. * Continue cefepime for cellulitis. * DVT prophylaxis: Patient is fully anticoagulated on Eliquis. Case discussed with Dr. Parham I spent a total of 30 minutes on the date of service in preparation, delivery, and documentation of the care provided to this patient, excluding any time spent in the performance of separately billed services. Purvi Morales PA-C Department of Cardiology, [facility] This chart was completed in part utilizing Speech Voice Recognition Software. Grammatical errors, random word insertions, pronoun errors, and incomplete sentences are an occasional consequence of this system due to software limitations, ambient noise, and hardware issues. Any formal questions or concerns about the content, text, or information contained within the body of this dictation should be directly addressed to the provider for clarification. Admission and Anticipated Discharge Date Admission Date: January 31, 2024 Supervising Physician Co-Signing Physician Notes I have reviewed the advance practitioner's documentation, and I agree with, and take responsibility for the plan of care. Patient seen examined the bedside. Reports subjective improvement of lower extremity edema. Denies chest pain or shortness of breath. PE: VSS. Gen: NAD, AAO x3. Heart: Regular rhythm. Normal S1-S2. No murmur. Lungs: Clear bilateral, no rales, rhonchi, wheeze. Extremities: 2+ bilateral lower extremity edema. Mild erythema. A/P: 78-year-old patient with bilateral lower extremity cellulitis and acute on chronic heart failure. Continue IV diuresis and antibiotic therapy. Likely require titration of oral furosemide and or transition to torsemide to improve volume control at time of discharge. Cardiology will continue to follow during hospitalization. I spent a total of 20 minutes on the date of service in preparation, delivery, and documentation of the care provided to this patient, excluding any time spent in the performance of separately billed services. Subjective Patient resting in bed. Legs elevated. He is feeling well. Reports his leg swelling has much improved from yesterday. Erythema also improving. No chest pain, dyspnea, palpitations. Review of Systems Review of Systems: All systems reviewed & are unremarkable except as noted in HPI & below Physical Exam Physical Exam: General: no acute distress and stated age Eyes: conjunctiva are pink and non-injected, sclera clear Neck: normal jugular venous pulse, no hepatojugular reflux Chest: normal shape and normal respiratory effort Lungs: clear to auscultation and percussion Cardiac Exam: -Irregular rhythm, 1/6 systolic murmur,2-3+ bilateral lower extremity edema with erythema to the knees Abdomen: abdomen soft, non-tender, no abnormal masses and no hepatosplenomegaly Musculoskeletal: no gait disturbance, no weakness Extremities: 2+ lower extremity edema, mild erythema Neuro:awake, conversant, follows commands, no focal motor deficits Psych: appropriate affect and insight. Results & Data Vital Signs (Past 12 Hours) Vital Signs Temp Pulse Pulse Pulse Resp BP Pulse Ox 02/05/24 11:23 36.5 C 75 18 114/77 96 02/05/24 07:59 02/05/24 07:48 36.7 C 97 H 17 108/71 95 02/05/24 07:30 71 02/05/24 04:09 36.3 C L 71 20 121/77 91 O2 Del Method 02/05/24 11:23 Room Air 02/05/24 07:59 Room Air 02/05/24 07:48 Room Air 02/05/24 07:30 02/05/24 04:09 Room Air Laboratory Results CBC 02/05/24 Range/Units 02:54 WBC 9.45 (4.8-10.8) K/ul RBC 3.09 L (4.70-6.10) M/uL Hgb 10.5 L (14.0-18.0) g/dl Hct 31.6 L (42.0-52.0) % Plt Count 195 (130-400) K/uL Comprehensive Metabolic Panel 02/05/24 Range/Units 02:54 Sodium 135 L (136-145) mmol/L Potassium 4.3 (3.5-5.1) mmol/L Chloride 102 (98-107) mmol/L Carbon Dioxide 24 (21-32) mmol/L BUN 28 H (6-23) mg/dl Creatinine 1.02 (0.6-1.4) mg/dl Glucose 105 H (70-99(Fasting)) mg/dl Calcium 8.0 L (8.6-10.3) mg/dl Intake and Output 02/04/24 02/05/24 02/05/24 22:59 06:59 14:59 Intake Total 200 / 560 Output Total 200 / 200 Balance 0 / 360 Intake: Oral 200 / 560 Output: Urine 200 / 200 Other: Other Intake Source Sips # Unmeasured Voids 4 Weight 81 kg Weight Measurement Method Built in [facility] Diagnostic Findings Telemetry reviewed: Currently NSR with [facility] PAC's Medications Administered Current Inpatient Medications Acetaminophen (Acetaminophen 325 Mg Tab) 650 mg PO Q4H PRN PRN Reason: Pain or Fever Stop: 03/02/24 01:55 Last Admin: 02/04/24 22:26 Dose: 650 mg Apixaban (Apixaban 5 Mg Tablet) 5 mg PO BID STEPHEN Stop: 03/02/24 08:59 Last Admin: 02/05/24 08:23 Dose: 5 mg Cyanocobalamin (Cyanocobalamin (B-12) 500 Mcg Tablet) 1,000 mcg PO DAILY STEPHEN Stop: 03/02/24 08:59 Last Admin: 02/05/24 08:24 Dose: 1,000 mcg Dextrose (Dextrose 50% 50 Ml Syringe) 25 - 50 ml IV UD PRN; Protocol PRN Reason: Hypoglycemia Protocol Stop: 03/02/24 01:55 Finasteride (Finasteride 5 Mg Tab) 5 mg PO DAILY TSEPHEN Stop: 03/02/24 08:59 Last Admin: 02/05/24 08:24 Dose: 5 mg Fluticasone/Vilanterol (Fluticasone/Vilanterol 200/25mcg 14 Puffs/Inhaler) 1 puffs INH DAILY STEPHEN Stop: 03/02/24 08:59 Last Admin: 02/05/24 08:25 Dose: 1 puffs Gabapentin (Gabapentin 300 Mg Cap) 300 mg PO BID STEPHEN Stop: 03/02/24 08:59 Last Admin: 02/05/24 08:23 Dose: 300 mg Glucagon (Glucagon For Inj 1 Mg Vial) 1 mg SQ UD PRN; Protocol PRN Reason: Hypoglycemia Protocol Stop: 03/02/24 01:55 Glucose (Glucose 10 Tab/Tube) 4 - 8 tab PO UD PRN; Protocol PRN Reason: Hypoglycemia Treatment Stop: 03/02/24 01:55 Glucose (Glucose 40% Gel 15 Gm Tube) 15 - 30 gm PO UD PRN; Protocol PRN Reason: Hypoglycemia Protocol Stop: 03/02/24 01:55 Cefepime HCl 2,000 mg/ Syringe 20 mls @ 5 mls/min IV Q12H STEPHEN; Protocol Stop: 02/08/24 08:59 Last Admin: 02/05/24 08:25 Dose: 5 mls/min Bumetanide 1 mg/ Syringe 4 mls @ 4 mls/min IV DAILY STEPHEN Stop: 03/05/24 08:59 Last Admin: 02/05/24 08:24 Dose: 4 mls/min Insulin Aspart (Insulin Aspart Per Unit Charge) 0 units SC ACHS STEPHEN Stop: 03/02/24 07:29 Last Admin: 02/05/24 12:43 Dose: 1 units Metoprolol Succinate (Metoprolol Succ 50mg Ext Rel Tab) 50 mg PO BID STEPHEN Stop: 03/04/24 08:59 Last Admin: 02/05/24 08:23 Dose: 50 mg Metoprolol Tartrate (Metoprolol Tartrate 1 Mg/Ml Vial) 5 mg IV Q5M PRN PRN Reason: Tachycardia Stop: 03/03/24 12:32 Miscellaneous (Carbohydrates For Hypoglycemia ) 15 - 30 gm PO UD PRN PRN Reason: Hypoglycemia Protocol Stop: 03/02/24 01:55 Pantoprazole Sodium (Pantoprazole 40 Mg Tab) 40 mg PO DAILY [facility] Stop: 03/02/24 08:59 Last Admin: 02/05/24 08:23 Dose: 40 mg Polyethylene Glycol (Polyethylene (Miralax) 17 Gm Pack) 17 gm PO DAILY PRN PRN Reason: Constipation Stop: 03/02/24 01:55 Potassium Chloride (Potassium Chloride Crtab 20 Meq Tabcr) 20 meq PO BID [facility] Stop: 03/06/24 20:59 Prednisone (Prednisone 5 Mg Tab) 5 mg PO DAILY [facility]EN Stop: 03/02/24 08:59 Last Admin: 02/05/24 08:24 Dose: 5 mg Rosuvastatin Calcium (Rosuvastatin Calcium 20 Mg Tab) 20 mg PO DAILY STEPHEN Stop: 03/04/24 08:59 Last Admin: 02/05/24 08:24 Dose: 20 mg Spironolactone (Spironolactone 25 Mg Tab) 25 mg PO DAILY STEPHEN Stop: 03/04/24 08:59 Last Admin: 02/05/24 08:24 Dose: 25 mg Vitamin D (Cholecalciferol 25 Mcg (1000 Units) Tab) 50 mcg PO DAILY [facility]PHEN Stop: 03/02/24 08:59 Last Admin: 02/05/24 08:24 Dose: 50 mcg
--- NOTE | 2024-02-05 17:35 | Hospitalist Progress Note ---
Date of Service February 05, 2024 Assessment & Plan (1) Sepsis: Plan: Mr. Peña is an 78-year-old male with past medical history significant for hyperlipidemia, steroid-induced hyperglycemia, diabetes not on any medications, history of pneumonia, history of SVT, history of chronic heart failure with preserved ejection fraction, longstanding persistent atrial fibrillation, aneurysm of ascending aorta, hypertension, BPH, osteoarthritis, cellulitis of right arm, polyneuropathy, history of rheumatoid arthritis who lives alone ambulates without support who presented to ED on 01/30 due to right lower extremity cellulitis and swelling. Patient was admitted for concern of sepsis. Probable Sepsis Right lower extremity cellulitis due to wound-- POA -Lactic acid 3.O >> resolved -MRSA nare negative --Venous Doppler:No ultrasonographic evidence of deep venous thrombosis involving the right lower extremity. --Leg X ray: No fractures within the right tibia or fibula. No evidence for acute osteomyelitis. Right lower leg soft tissue swelling. Daptomycin discontinued Currently on IV cefepime Continue wound care Continue leg elevation Acute on Chronic heart failure with preserved EF --Chest XRAY with pleural effusions and likely edema/vascular congestion --ECHO in 2021 with EF 60%; Last followed Cardiology in 2022 -Reports of intermittent compliance per daughter given concern with frequent urination BNP 137 Continue IV Bumex Also on spironolactone Monitor I's and O's, daily weight, volume status Appreciate cardiology input Chronic peripheral neuropathy On gabapentin Paroxysmal SVT Long-term persistent atrial fibrillation controlled rates, chronic Eliquis Borderline tachybrady syndrome Continue on metoprolol succinate 50 mg BID Continue on Eliquis Chronic Leukocytosis Chronic Macrocytic Anemia Vitamin B12 deficiency Follow Heme/onc, no immature cells or abnormal cells on diff. Baseline ~11.1 WBC monitor DM II Not on meds, A1C 7.6% Continue insulin sliding scale while hospitalized Diabetic diet COPD Stable continue inhalers Rheumatoid arthritis On prednisone 5 mg daily, 10mg prn BPH On finasteride Hyperlipidemia continue statin DVT Px: Eliquis Code Status Full code Admission and Anticipated Discharge Date Admission Date: January 31, 2024 Subjective Patient is seen and examined at bedside States having significant leg edema Also reports chronic neuropathy pain No other complaints Denies any chest pain, dyspnea, dizziness, nausea, vomiting, abdominal pain No other complaints Review of Systems Review of Systems: All systems reviewed & are unremarkable except as noted in Subjective Physical Exam Physical Exam: Physical Exam: Vitals signs as noted above General Appearance:Moderately built and nourished, no apparent distress, Elderly Head: normocephalic, Atraumatic Eyes: normal inspection, EOMI Neck: supple, Trachea midline Respiratory/Chest: Normal breath sounds, CTA, No accessory muscle use Cardiovascular: Irregularly irregular, +murmur Abdomen/GI:Soft, Non tender, Bowel sounds present Extremities/Musculoskeletal:normal inspection, 2-2 + B/L LE edema Neurologic/Psych:AAOX3, grossly no focal neurological deficits Skin: normal color, warm Results & Data Results & Data Vital Signs (Past 12 Hours) Vital Signs Temp Pulse Pulse Resp BP Pulse Ox O2 Del Method 02/05/24 15:41 36.7 C 70 18 148/76 H 90 Room Air 02/05/24 15:15 81 02/05/24 11:23 36.5 C 75 18 114/77 96 Room Air 02/05/24 07:59 Room Air 02/05/24 07:48 36.7 C 97 H 17 108/71 95 Room Air 02/05/24 07:30 71 Laboratory Results Short CBC 02/05/24 Range/Units 02:54 WBC 9.45 (4.8-10.8) K/ul Hgb 10.5 L (14.0-18.0) g/dl Hct 31.6 L (42.0-52.0) % Plt Count 195 (130-400) K/uL BMP 02/05/24 02:54 Sodium 135 L Potassium 4.3 Chloride 102 Carbon Dioxide 24 BUN 28 H Creatinine 1.02 Glucose 105 H Calcium 8.0 L
[2024-02-05] MEDS: POTASSIUM CHLORIDE CRTAB 20 MEQ TABCR PO SCH (20:07)
[2024-02-06 03:53] LABS: Calcium 8.2 mg/dl (8.6-10.3); Creatinine Clr Calc Pharmacy 64.6 ml/min; Est GFR (African American) 89.5 ml/min; Est GFR (Non-African American) 77.3 ml/min; Potassium 4.4 mmol/L (3.5-5.1)
--- NOTE | 2024-02-06 09:44 | Cardiology Progress Note ---
Date of Service February 06, 2024 Assessment & Plan (1) Bilateral cellulitis of lower leg: (2) Acute on chronic heart failure with preserved ejection fraction (HFpEF): Plan History of permanent atrial fibrillation documented in progress note on 02/03/2024, patient has reverted back to NSR. Continue metoprolol succinate 50 mg twice daily, Eliquis 5 mg twice daily for stroke prophylaxis * Patient previously on furosemide 20 mg by mouth daily at home * LE edema persists this morning. Erythema improving. * Increase Bumex 1 mg IV BID today with Potassium supplementation * Continue spironolactone 25 mg daily - monitor sodium/renal function * Continue cefepime for cellulitis. Erythema * DVT prophylaxis: Patient is fully anticoagulated on Eliquis. Case discussed with Dr. Parham I spent a total of 25 minutes on the date of service in preparation, delivery, and documentation of the care provided to this patient, excluding any time spent in the performance of separately billed services. Purvi Morales PA-C Department of Cardiology, [facility] This chart was completed in part utilizing Speech Voice Recognition Software. Grammatical errors, random word insertions, pronoun errors, and incomplete sentences are an occasional consequence of this system due to software limita tions, ambient noise, and hardware issues. Any formal questions or concerns about the content, text, or information contained within the body of this dictation should be directly addressed to the provider for clarification. Admission and Anticipated Discharge Date Admission Date: January 31, 2024 Supervising Physician Co-Signing Physician Notes I have reviewed the advance practitioner's documentation, and I agree with, and take responsibility for the plan of care. I have personally performed a history and physical examination on the patient. Patient seen examined the bedside. Right lower extremity edema unchanged. Denies chest pain or shortness of breath. PE: VSS. Gen: NAD, AAO x3. Heart: Regular rhythm. Normal S1-S2. No murmur. Lungs: Clear bilateral, no rales, rhonchi, wheeze. Extremities: 2+ bilateral lower extremity edema. Mild erythema. A/P: 78-year-old patient with bilateral lower extremity cellulitis and acute on chronic heart failure. Agree with titration of Bumex to 1 mg twice daily today. Continue spironolactone. Follow fluid balance, daily weight, GFR, and electrolytes. Patient will likely require titration of oral furosemide and or transition to torsemide at time of discharge. I spent a total of 25 minutes on the date of service in preparation, delivery, and documentation of the care provided to this patient, excluding any time spent in the performance of separately billed services. Subjective Patient resting comfortably in bed. Erythema of b/l lower extremities improved. Edema persists, but patient reports this has also improved. He denies chest pain or dyspnea. Review of Systems Review of Systems: All systems reviewed & are unremarkable except as noted in HPI & below Physical Exam Physical Exam: General: no acute distress and stated age Eyes: conjunctiva are pink and non-injected, sclera clear Neck: normal jugular venous pulse, no hepatojugular reflux Chest: normal shape and normal respiratory effort Lungs: clear to auscultation and percussion Cardiac Exam: -Irregular rhythm, 1/6 systolic murmur,2-3+ bilateral lower extremity edema with erythema to the knees Abdomen: abdomen soft, non-tender, no abnormal masses and no hepatosplenomegaly Musculoskeletal: no gait disturbance, no weakness Extremities: 2+ lower extremity edema Neuro:awake, conversant, follows commands, no focal motor deficits Psych: appropriate affect and insight. Results & Data Vital Signs (Past 12 Hours) Vital Signs Temp Pulse Pulse Pulse Resp BP Pulse Ox 02/06/24 08:08 36.6 C 72 18 106/69 96 02/06/24 07:29 02/06/24 02:57 36.4 C L 67 18 92/56 L 95 02/06/24 00:00 75 02/05/24 23:29 36.6 C 76 18 92/53 L 95 O2 Del Method 02/06/24 08:08 Room Air 02/06/24 07:29 Room Air 02/06/24 02:57 Room Air 02/06/24 00:00 02/05/24 23:29 Room Air Laboratory Results Comprehensive Metabolic Panel 02/06/24 Range/Units 03:20 Sodium 134 L (136-145) mmol/L Potassium 4.4 (3.5-5.1) mmol/L Chloride 102 (98-107) mmol/L Carbon Dioxide 25 (21-32) mmol/L BUN 26 H (6-23) mg/dl Creatinine 0.93 (0.6-1.4) mg/dl Glucose 101 H (70-99(Fasting)) mg/dl Calcium 8.2 L (8.6-10.3) mg/dl Intake and Output 02/05/24 02/06/24 02/06/24 22:59 06:59 14:59 Intake Total 470 / 670 Balance 470 / 470 Intake: Oral 470 / 670 Other: # Unmeasured Voids 1 1 Weight 81.8 kg Weight Measurement Method Built in [facility] Diagnostic Findings Telemetry reviewed: NSR 70-80's; Occ PVC Medications Administered Current Inpatient Medications Acetaminophen (Acetaminophen 325 Mg Tab) 650 mg PO Q4H PRN PRN Reason: Pain or Fever Stop: 03/02/24 01:55 Last Admin: 02/05/24 22:00 Dose: 650 mg Apixaban (Apixaban 5 Mg Tablet) 5 mg PO BID STEPHEN Stop: 03/02/24 08:59 Last Admin: 02/06/24 08:34 Dose: 5 mg Cyanocobalamin (Cyanocobalamin (B-12) 500 Mcg Tablet) 1,000 mcg PO DAILY [facility] Stop: 03/02/24 08:59 Last Admin: 02/06/24 08:45 Dose: 1,000 mcg Dextrose (Dextrose 50% 50 Ml Syringe) 25 - 50 ml IV UD PRN; Protocol PRN Reason: Hypoglycemia Protocol Stop: 03/02/24 01:55 Finasteride (Finasteride 5 Mg Tab) 5 mg PO DAILY [facility] Stop: 03/02/24 08:59 Last Admin: 02/06/24 08:45 Dose: 5 mg Fluticasone/Vilanterol (Fluticasone/Vilanterol 200/25mcg 14 Puffs/Inhaler) 1 puffs INH DAILY [facility] Stop: 03/02/24 08:59 Last Admin: 02/06/24 08:45 Dose: 1 puffs Gabapentin (Gabapentin 300 Mg Cap) 300 mg PO BID STEPHEN Stop: 03/02/24 08:59 Last Admin: 02/06/24 08:34 Dose: 300 mg Glucagon (Glucagon For Inj 1 Mg Vial) 1 mg SQ UD PRN; Protocol PRN Reason: Hypoglycemia Protocol Stop: 03/02/24 01:55 Glucose (Glucose 10 Tab/Tube) 4 - 8 tab PO UD PRN; Protocol PRN Reason: Hypoglycemia Treatment Stop: 03/02/24 01:55 Glucose (Glucose 40% Gel 15 Gm Tube) 15 - 30 gm PO UD PRN; Protocol PRN Reason: Hypoglycemia Protocol Stop: 03/02/24 01:55 Cefepime HCl 2,000 mg/ Syringe 20 mls @ 5 mls/min IV Q12H [facility]; Protocol Stop: 02/08/24 08:59 Last Admin: 02/06/24 08:45 Dose: 5 mls/min Bumetanide 1 mg/ Syringe 4 mls @ 4 mls/min IV DAILY STEPHEN Stop: 03/05/24 08:59 Last Admin: 02/06/24 08:46 Dose: 4 mls/min Insulin Aspart (Insulin Aspart Per Unit Charge) 0 units SC ACHS STEPHEN Stop: 03/02/24 07:29 Last Admin: 02/06/24 08:24 Dose: Not Given Metoprolol Succinate (Metoprolol Succ 50mg Ext Rel Tab) 50 mg PO BID [facility] Stop: 03/04/24 08:59 Last Admin: 02/06/24 08:34 Dose: 50 mg Metoprolol Tartrate (Metoprolol Tartrate 1 Mg/Ml Vial) 5 mg IV Q5M PRN PRN Reason: Tachycardia Stop: 03/03/24 12:32 Miscellaneous (Carbohydrates For Hypoglycemia ) 15 - 30 gm PO UD PRN PRN Reason: Hypoglycemia Protocol Stop: 03/02/24 01:55 Pantoprazole Sodium (Pantoprazole 40 Mg Tab) 40 mg PO DAILY [facility] Stop: 03/02/24 08:59 Last Admin: 02/06/24 08:45 Dose: 40 mg Polyethylene Glycol (Polyethylene (Miralax) 17 Gm Pack) 17 gm PO DAILY PRN PRN Reason: Constipation Stop: 03/02/24 01:55 Potassium Chloride (Potassium Chloride Crtab 20 Meq Tabcr) 20 meq PO BID [facility] Stop: 03/06/24 20:59 Last Admin: 02/06/24 08:34 Dose: 20 meq Prednisone (Prednisone 5 Mg Tab) 5 mg PO DAILY [facility] Stop: 03/02/24 08:59 Last Admin: 02/06/24 08:45 Dose: 5 mg Rosuvastatin Calcium (Rosuvastatin Calcium 20 Mg Tab) 20 mg PO DAILY [facility] Stop: 03/04/24 08:59 Last Admin: 02/06/24 08:45 Dose: 20 mg Spironolactone (Spironolactone 25 Mg Tab) 25 mg PO DAILY [facility] Stop: 03/04/24 08:59 Last Admin: 02/06/24 08:44 Dose: 25 mg Vitamin D (Cholecalciferol 25 Mcg (1000 Units) Tab) 50 mcg PO DAILY [facility] Stop: 03/02/24 08:59 Last Admin: 02/06/24 08:45 Dose: 50 mcg
[2024-02-06] MEDS: BUMETANIDE 1 MG in SYRINGE 0 ML IV SCH (14:47)
--- NOTE | 2024-02-06 16:40 | Hospitalist Progress Note ---
Date of Service February 06, 2024 Assessment & Plan (1) Sepsis: Plan: Mr. Peña is an 78-year-old male with past medical history significant for hyperlipidemia, steroid-induced hyperglycemia, diabetes not on any medications, history of pneumonia, history of SVT, history of chronic heart failure with preserved ejection fraction, longstanding persistent atrial fibrillation, aneurysm of ascending aorta, hypertension, BPH, osteoarthritis, cellulitis of right arm, polyneuropathy, history of rheumatoid arthritis who lives alone ambulates without support who presented to ED on 01/30 due to right lower extremity cellulitis and swelling. Patient was admitted for concern of sepsis. Probable Sepsis Right lower extremity cellulitis due to wound-- POA -Lactic acid 3.O >> resolved -MRSA nare negative --Venous Doppler:No ultrasonographic evidence of deep venous thrombosis involving the right lower extremity. --Leg X ray: No fractures within the right tibia or fibula. No evidence for acute osteomyelitis. Right lower leg soft tissue swelling. Daptomycin discontinued Currently on IV cefepime Continue wound care Continue leg elevation Erythema much improved Acute on Chronic heart failure with preserved EF --Chest XRAY with pleural effusions and likely edema/vascular congestion --ECHO in 2021 with EF 60%; Last followed Cardiology in 2022 -Reports of intermittent compliance per daughter given concern with frequent urination BNP 137 Continue IV Bumex Also on spironolactone Monitor I's and O's, daily weight, volume status Appreciate cardiology input IV Bumex increased to twice a day Chronic peripheral neuropathy On gabapentin Paroxysmal SVT Long-term persistent atrial fibrillation controlled rates, chronic Eliquis Borderline tachybrady syndrome Continue on metoprolol succinate 50 mg BID Continue on Eliquis Chronic Leukocytosis Chronic Macrocytic Anemia Vitamin B12 deficiency Follow Heme/onc, no immature cells or abnormal cells on diff. Baseline ~11.1 WBC monitor DM II Not on meds, A1C 7.6% Continue insulin sliding scale while hospitalized Diabetic diet COPD Stable continue inhalers Rheumatoid arthritis On prednisone 5 mg daily, 10mg prn BPH On finasteride Hyperlipidemia continue statin DVT Px: Eliquis Code Status Full code Admission and Anticipated Discharge Date Admission Date: January 31, 2024 Subjective Patient is seen and examined at bedside Persistent lower extremity edema No new complaints Denies any chest pain, dyspnea, dizziness, nausea, vomiting, abdominal pain Review of Systems Review of Systems: All systems reviewed & are unremarkable except as noted in Subjective Physical Exam Physical Exam: Physical Exam: Vitals signs as noted above General Appearance:Moderately built and nourished, no apparent distress, Elderly Head: normocephalic, Atraumatic Eyes: normal inspection, EOMI Neck: supple, Trachea midline Respiratory/Chest: Normal breath sounds, CTA, No accessory muscle use Cardiovascular: Irregularly irregular, +murmur Abdomen/GI:Soft, Non tender, Bowel sounds present Extremities/Musculoskeletal:normal inspection, 2-2 + B/L LE edema Neurologic/Psych:AAOX3, grossly no focal neurological deficits Skin: normal color, warm Results & Data Results & Data Vital Signs (Past 12 Hours) Vital Signs Temp Pulse Pulse Pulse Resp BP Pulse Ox 02/06/24 15:53 36.7 C 76 17 134/82 97 02/06/24 15:20 71 02/06/24 11:43 36.3 C L 65 17 110/73 96 02/06/24 08:08 36.6 C 72 18 106/69 96 02/06/24 07:30 71 02/06/24 07:29 O2 Del Method 02/06/24 15:53 Room Air 02/06/24 15:20 02/06/24 11:43 Room Air 02/06/24 08:08 Room Air 02/06/24 07:30 02/06/24 07:29 Room Air Laboratory Results BMP 02/06/24 03:20 Sodium 134 L Potassium 4.4 Chloride 102 Carbon Dioxide 25 BUN 26 H Creatinine 0.93 Glucose 101 H Calcium 8.2 L
[2024-02-07 04:33] LABS: Hematocrit (blood only) 32.5 % (42.0-52.0); Hemoglobin 10.6 g/dl (14.0-18.0); Mean Corpuscular Hemoglobin 33.7 pg (25.0-34.0); Mean Corpuscular Hgb Conc 32.6 g/dL (32.0-36.0); Mean Corpuscular Volume 103.2 fL (80.0-100.0); Mean Platelet Volume 11.5 fL (9.4-12.4); Platelet Count 210 K/uL (130-400); RDW Coefficient of Variation 14.6 % (11.5-14.5); RDW Standard Deviation 54.7 fL (36.4-46.3); Red Blood Count 3.15 M/uL (4.70-6.10); White Blood Count 9.83 K/ul (4.8-10.8)
[2024-02-07 04:59] LABS: BUN Creatinine Ratio 22.9 (10-20); Calcium 8.1 mg/dl (8.6-10.3); Creatinine Clr Calc Pharmacy 57.4 ml/min; Est GFR (African American) 77.3 ml/min; Est GFR (Non-African American) 66.7 ml/min; Magnesium 2.3 mg/dl (1.7-2.4); Potassium 4.6 mmol/L (3.5-5.1)
--- NOTE | 2024-02-07 15:14 | Cardiology Progress Note ---
Date of Service February 07, 2024 Assessment & Plan (1) Bilateral cellulitis of lower leg: (2) Acute on chronic heart failure with preserved ejection fraction (HFpEF): Plan History of permanent atrial fibrillation documented in progress note on 02/03/2024, patient has reverted back to NSR. Continue metoprolol succinate 50 mg twice daily, Eliquis 5 mg twice daily for stroke prophylaxis * Patient previously on furosemide 20 mg by mouth daily at home * LE edema persists this morning but continues to improve each day. Erythema improving. * Significant diuresis and weight down with titration of bumex to 1 mg BID yesterday. * Continue spironolactone 25 mg daily - monitor sodium/renal function * Sodium improved and renal function stable. * Continue cefepime for cellulitis. Erythema * DVT prophylaxis: Patient is fully anticoagulated on Eliquis. Case discussed with Dr. Parham I spent a total of 25 minutes on the date of service in preparation, delivery, and documentation of the care provided to this patient, excluding any time spent in the performance of separately billed services. Purvi Morales PA-C Department of Cardiology, [facility] This chart was completed in part utilizing Speech Voice Recognition Software. Grammatical errors, random word insertions, pronoun errors, and incomplete sentences are an occasional consequence of this system due to software limitations, ambient noise, and hardware issues. Any formal questions or concerns about the content, text, or information contained within the body of this dictation should be directly addressed to the provider for clarification. Admission and Anticipated Discharge Date Admission Date: January 31, 2024 Supervising Physician Co-Signing Physician Notes I have reviewed the advance practitioner's documentation, and I agree with, and take responsibility for the plan of care. I have personally performed a history and physical examination on the patient. Patient seen examined the bedside. Lower extremity edema mildly improved. Denies chest pain or shortness of breath. PE: VSS. Gen: NAD, AAO x3. Heart: Regular rhythm. Normal S1-S2. No murmur. Lungs: Clear bilateral, no rales, rhonchi, wheeze. Extremities: 2+ bilateral lower extremity edema. Mild erythema. A/P: 78-year-old patient with bilateral lower extremity cellulitis and acute on chronic heart failure. Continue bumex 1 mg twice daily and spironolactone. Follow fluid balance, daily weight, GFR, and electrolytes. Patient will likely require titration of oral furosemide and/or transition to torsemide at time of discharge. I spent a total of 20 minutes on the date of service in preparation, delivery, and documentation of the care provided to this patient, excluding any time spent in the performance of separately billed services. Subjective Patient resting in bed comfortably. Diuresed a significant amount yesterday. weight down. Edema continues to improve daily. No SOB/orthopnea. No fever or chills. Erythema also improved Review of Systems Review of Systems: All systems reviewed & are unremarkable except as noted in HPI & below Physical Exam Physical Exam: General: no acute distress and stated age Eyes: conjunctiva are pink and non-injected, sclera clear Neck: normal jugular venous pulse, no hepatojugular reflux Chest: normal shape and normal respiratory effort Lungs: clear to auscultation and percussion Cardiac Exam: -Irregular rhythm, 1/6 systolic murmur,2-3+ bilateral lower extremity edema with erythema to the knees Abdomen: abdomen soft, non-tender, no abnormal masses and no hepatosplenomegaly Musculoskeletal: no gait disturbance, no weakness Extremities: 2+ lower extremity edema Neuro:awake, conversant, follows commands, no focal motor deficits Psych: appropriate affect and insight. Results & Data Vital Signs (Past 12 Hours) Vital Signs Temp Pulse Pulse Resp BP Pulse Ox O2 Del Method 02/07/24 12:02 36.8 C 64 16 110/70 98 Room Air 02/07/24 08:45 Room Air 02/07/24 08:14 36.8 C 67 18 107/71 97 Room Air 02/07/24 06:58 73 Laboratory Results CBC 02/07/24 Range/Units 03:25 WBC 9.83 (4.8-10.8) K/ul RBC 3.15 L (4.70-6.10) M/uL Hgb 10.6 L (14.0-18.0) g/dl Hct 32.5 L (42.0-52.0) % Plt Count 210 (130-400) K/uL Comprehensive Metabolic Panel 02/07/24 Range/Units 03:25 Sodium 138 (136-145) mmol/L Potassium 4.6 (3.5-5.1) mmol/L Chloride 104 (98-107) mmol/L Carbon Dioxide 27 (21-32) mmol/L BUN 24 H (6-23) mg/dl Creatinine 1.05 (0.6-1.4) mg/dl Glucose 84 (70-99(Fasting)) mg/dl Calcium 8.1 L (8.6-10.3) mg/dl Intake and Output 02/07/24 02/07/24 02/07/24 06:59 14:59 22:59 Intake Total 980 / 980 Balance 980 / 980 Intake: Oral 980 / 980 Other: # Unmeasured Voids 10 Weight 78.8 kg Weight Measurement Method Built in [facility] Diagnostic Findings Telemetry reviewed: NSR in the 70-80s Medications Administered Current Inpatient Medications Acetaminophen (Acetaminophen 325 Mg Tab) 650 mg PO Q4H PRN PRN Reason: Pain or Fever Stop: 03/02/24 01:55 Last Admin: 02/05/24 22:00 Dose: 650 mg Apixaban (Apixaban 5 Mg Tablet) 5 mg PO BID [facility] Stop: 03/02/24 08:59 Last Admin: 02/07/24 08:33 Dose: 5 mg Cefdinir (Cefdinir 300 Mg Cap) 300 mg PO BID STEPH[facility]; Protocol Stop: 02/11/24 08:59 Cyanocobalamin (Cyanocobalamin (B-12) 500 Mcg Tablet) 1,000 mcg PO DAILY STEPHEN Stop: 03/02/24 08:59 Last Admin: 02/07/24 08:34 Dose: 1,000 mcg Dextrose (Dextrose 50% 50 Ml Syringe) 25 - 50 ml IV UD PRN; Protocol PRN Reason: Hypoglycemia Protocol Stop: 03/02/24 01:55 Finasteride (Finasteride 5 Mg Tab) 5 mg PO DAILY [facility] Stop: 03/02/24 08:59 Last Admin: 02/07/24 08:34 Dose: 5 mg Fluticasone/Vilanterol (Fluticasone/Vilanterol 200/25mcg 14 Puffs/Inhaler) 1 puffs INH DAILY [facility] Stop: 03/02/24 08:59 Last Admin: 02/07/24 08:34 Dose: 1 puffs Gabapentin (Gabapentin 300 Mg Cap) 300 mg PO BID [facility] Stop: 03/02/24 08:59 Last Admin: 02/07/24 08:33 Dose: 300 mg Glucagon (Glucagon For Inj 1 Mg Vial) 1 mg SQ UD PRN; Protocol PRN Reason: Hypoglycemia Protocol Stop: 03/02/24 01:55 Glucose (Glucose 10 Tab/Tube) 4 - 8 tab PO UD PRN; Protocol PRN Reason: Hypoglycemia Treatment Stop: 03/02/24 01:55 Glucose (Glucose 40% Gel 15 Gm Tube) 15 - 30 gm PO UD PRN; Protocol PRN Reason: Hypoglycemia Protocol Stop: 03/02/24 01:55 Bumetanide 1 mg/ Syringe 4 mls @ 4 mls/min IV BID [facility] Stop: 03/07/24 14:59 Last Admin: 02/07/24 08:33 Dose: 4 mls/min Insulin Aspart (Insulin Aspart Per Unit Charge) 0 units SC ACHS [facility] Stop: 03/02/24 07:29 Last Admin: 02/07/24 12:14 Dose: Not Given Metoprolol Succinate (Metoprolol Succ 50mg Ext Rel Tab) 50 mg PO BID [facility] Stop: 03/04/24 08:59 Last Admin: 02/07/24 08:33 Dose: 50 mg Metoprolol Tartrate (Metoprolol Tartrate 1 Mg/Ml Vial) 5 mg IV Q5M PRN PRN Reason: Tachycardia Stop: 03/03/24 12:32 Miscellaneous (Carbohydrates For Hypoglycemia ) 15 - 30 gm PO UD PRN PRN Reason: Hypoglycemia Protocol Stop: 03/02/24 01:55 Pantoprazole Sodium (Pantoprazole 40 Mg Tab) 40 mg PO DAILY [facility] Stop: 03/02/24 08:59 Last Admin: 02/07/24 08:34 Dose: 40 mg Polyethylene Glycol (Polyethylene (Miralax) 17 Gm Pack) 17 gm PO DAILY PRN PRN Reason: Constipation Stop: 03/02/24 01:55 Potassium Chloride (Potassium Chloride Crtab 20 Meq Tabcr) 20 meq PO BID [facility] Stop: 03/06/24 20:59 Last Admin: 02/07/24 08:33 Dose: 20 meq Prednisone (Prednisone 5 Mg Tab) 5 mg PO DAILY [facility] Stop: 03/02/24 08:59 Last Admin: 02/07/24 08:34 Dose: 5 mg Rosuvastatin Calcium (Rosuvastatin Calcium 20 Mg Tab) 20 mg PO DAILY [facility] Stop: 03/04/24 08:59 Last Admin: 02/07/24 08:34 Dose: 20 mg Spironolactone (Spironolactone 25 Mg Tab) 25 mg PO DAILY [facility] Stop: 03/04/24 08:59 Last Admin: 02/07/24 08:34 Dose: 25 mg Vitamin D (Cholecalciferol 25 Mcg (1000 Units) Tab) 50 mcg PO DAILY [facility] Stop: 03/02/24 08:59 Last Admin: 02/07/24 08:34 Dose: 50 mcg
--- NOTE | 2024-02-07 17:32 | Hospitalist Progress Note ---
Date of Service February 07, 2024 Assessment & Plan (1) Sepsis: Plan: Mr. Peña is an 78-year-old male with past medical history significant for hyperlipidemia, steroid-induced hyperglycemia, diabetes not on any medications, history of pneumonia, history of SVT, history of chronic heart failure with preserved ejection fraction, longstanding persistent atrial fibrillation, aneurysm of ascending aorta, hypertension, BPH, osteoarthritis, cellulitis of right arm, polyneuropathy, history of rheumatoid arthritis who lives alone ambulates without support who presented to ED on 01/30 due to right lower extremity cellulitis and swelling. Patient was admitted for concern of sepsis. Probable Sepsis Right lower extremity cellulitis due to wound-- POA -Lactic acid 3.O >> resolved -MRSA nare negative --Venous Doppler:No ultrasonographic evidence of deep venous thrombosis involving the right lower extremity. --Leg X ray: No fractures within the right tibia or fibula. No evidence for acute osteomyelitis. Right lower leg soft tissue swelling. Daptomycin discontinued Currently on IV cefepime>> transition to cefdinir Continue wound care Continue leg elevation Plan to complete 10-day course of antibiotics Acute on Chronic heart failure with preserved EF --Chest XRAY with pleural effusions and likely edema/vascular congestion --ECHO in 2021 with EF 60%; Last followed Cardiology in 2022 -Reports of intermittent compliance per daughter given concern with frequent urination BNP 137 Continue IV Bumex Also on spironolactone Monitor I's and O's, daily weight, volume status Appreciate cardiology input IV Bumex increased to twice a day Leg edema slowly improving Chronic peripheral neuropathy On gabapentin Paroxysmal SVT Long-term persistent atrial fibrillation controlled rates, chronic Eliquis Borderline tachybrady syndrome Continue on metoprolol succinate 50 mg BID Continue on Eliquis Chronic Leukocytosis Chronic Macrocytic Anemia Vitamin B12 deficiency Follow Heme/onc, no immature cells or abnormal cells on diff. Baseline ~11.1 WBC monitor DM II Not on meds, A1C 7.6% Continue insulin sliding scale while hospitalized Diabetic diet COPD Stable continue inhalers Rheumatoid arthritis On prednisone 5 mg daily, 10mg prn BPH On finasteride Hyperlipidemia continue statin DVT Px: Eliquis Code Status Full code Admission and Anticipated Discharge Date Admission Date: January 31, 2024 Subjective Patient is seen and examined at bedside Leg edema slowly improving No other complaints today Denies any chest pain, dyspnea, dizziness, nausea, vomiting, abdominal pain Review of Systems Review of Systems: All systems reviewed & are unremarkable except as noted in Subjective Physical Exam Physical Exam: Physical Exam: Vitals signs as noted above General Appearance:Moderately built and nourished, no apparent distress, Elderly Head: normocephalic, Atraumatic Eyes: normal inspection, EOMI Neck: supple, Trachea midline Respiratory/Chest: Normal breath sounds, CTA, No accessory muscle use Cardiovascular: Irregularly irregular, +murmur Abdomen/GI:Soft, Non tender, Bowel sounds present Extremities/Musculoskeletal:normal inspection, 2-2 + B/L LE edema Neurologic/Psych:AAOX3, grossly no focal neurological deficits Skin: normal color, warm Results & Data Results & Data Vital Signs (Past 12 Hours) Vital Signs Temp Pulse Pulse Resp BP Pulse Ox O2 Del Method 02/07/24 15:40 79 02/07/24 15:38 36.6 C 78 18 103/65 96 Room Air 02/07/24 12:02 36.8 C 64 16 110/70 98 Room Air 02/07/24 08:45 Room Air 02/07/24 08:14 36.8 C 67 18 107/71 97 Room Air 02/07/24 06:58 73 Laboratory Results Short CBC 02/07/24 Range/Units 03:25 WBC 9.83 (4.8-10.8) K/ul Hgb 10.6 L (14.0-18.0) g/dl Hct 32.5 L (42.0-52.0) % Plt Count 210 (130-400) K/uL BMP 02/07/24 03:25 Sodium 138 Potassium 4.6 Chloride 104 Carbon Dioxide 27 BUN 24 H Creatinine 1.05 Glucose 84 Calcium 8.1 L
[2024-02-07] MEDS: CEFDINIR 300 MG CAP PO SCH (19:59)
[2024-02-08 07:38] LABS: BUN Creatinine Ratio 21.9 (10-20); Calcium 8.4 mg/dl (8.6-10.3); Creatinine Clr Calc Pharmacy 48.3 ml/min; Est GFR (Non-African American) 60.4 ml/min; Potassium 3.9 mmol/L (3.5-5.1)
--- NOTE | 2024-02-08 11:44 | Cardiology Progress Note ---
Date of Service February 08, 2024 Assessment & Plan (1) Bilateral cellulitis of lower leg: (2) Acute on chronic heart failure with preserved ejection fraction (HFpEF): Plan History of permanent atrial fibrillation documented in progress note on 02/03/2024, patient has reverted back to NSR. Continue metoprolol succinate 50 mg twice daily, Eliquis 5 mg twice daily for stroke prophylaxis * Patient previously on furosemide 20 mg by mouth daily at home * LE edema continues to improve and likely nearing baseline. * Significant diuresis and weight down with titration of bumex to 1 mg BID * Continue spironolactone 25 mg daily - monitor sodium/renal function * Sodium improved and renal function stable. * Patient has been transitioned from IV antibiotics to oral antibiotics. * Acceptable to transition to oral diuretics in anticipation for discharge. Increase furosemide dose to 40 mg daily (LEATHER TACKER dose was 20 mg) * DVT prophylaxis: Patient is fully anticoagulated on Eliquis. Stable cardiac symptoms. Acceptable to discharge from cardiac perspective when stable from wound/cellulitis perspective. Will transition to oral diuretics. 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 Parham I spent a total of 25 minutes on the date of service in preparation, delivery, and documentation of the care provided to this patient, excluding any time spent in the performance of separately billed services. Purvi Morales PA-C Department of Cardiology, [facility] This chart was completed in part utilizing Speech Voice Recognition Software. Grammatical errors, random word insertions, pronoun errors, and incomplete sentences are an occasional consequence of this system due to software limitations, ambient noise, and hardware issues. Any formal questions or concerns about the content, text, or information contained within the body of this dictation should be directly addressed to the provider for clarification. Admission and Anticipated Discharge Date Admission Date: January 31, 2024 Supervising Physician Co-Signing Physician Notes I have reviewed the advance practitioner's documentation, and I agree with, and take responsibility for the plan of care. I have personally performed a history and physical examination on the patient. Patient seen examined the bedside. Lower extremity edema unchanged. I suspect he is reaching baseline. Denies chest pain or shortness of breath. PE: VSS. Gen: NAD, AAO x3. Heart: Regular rhythm. Normal S1-S2. No murmur. Lungs: Clear bilateral, no rales, rhonchi, wheeze. Extremities: 2+ bilateral lower extremity edema. Mild erythema. A/P: 78-year-old patient with bilateral lower extremity cellulitis and acute on chronic heart failure. Transition to oral diuretic therapy. Outpatient dose of Lasix previously 20 mg daily. Will increase to 40 mg daily plus Aldactone. Follow fluid balance, daily weight, GFR, and electrolytes. No further inpatient testing or intervention recommended from a cardiac perspective. Cardiology will sign off. Please call with any additional concerns/questions. I spent a total of 20 minutes on the date of service in preparation, delivery, and documentation of the care provided to this patient, excluding any time spent in the performance of separately billed services. Subjective Patient resting in bed. Anxious for discharge. Feels "ready to go". Denies chest pain or SOB. edema continues to improve. Erythema also improved. Review of Systems Review of Systems: All systems reviewed & are unremarkable except as noted in HPI & below Physical Exam Physical Exam: General: no acute distress and stated age Eyes: conjunctiva are pink and non-injected, sclera clear Neck: normal jugular venous pulse, no hepatojugular reflux Chest: normal shape and normal respiratory effort Lungs: clear to auscultation and percussion Cardiac Exam: -Irregular rhythm, 1/6 systolic murmur,2-3+ bilateral lower extremity edema with erythema to the knees Abdomen: abdomen soft, non-tender, no abnormal masses and no hepatosplenomegaly Musculoskeletal: no gait disturbance, no weakness Extremities: 1+ lower extremity edema Neuro:awake, conversant, follows commands, no focal motor deficits Psych: appropriate affect and insight. Results & Data Vital Signs (Past 12 Hours) Vital Signs Temp Pulse Pulse Pulse Resp BP Pulse Ox 02/08/24 08:40 73 02/08/24 08:20 02/08/24 07:59 36.7 C 73 18 110/71 96 02/08/24 03:07 36.4 C L 75 18 85/50 L 97 O2 Del Method 02/08/24 08:40 02/08/24 08:20 Room Air 02/08/24 07:59 Room Air 02/08/24 03:07 Room Air Laboratory Results Comprehensive Metabolic Panel 02/08/24 Range/Units 05:41 Sodium 136 (136-145) mmol/L Potassium 3.9 (3.5-5.1) mmol/L Chloride 102 (98-107) mmol/L Carbon Dioxide 27 (21-32) mmol/L BUN 25 H (6-23) mg/dl Creatinine 1.14 (0.6-1.4) mg/dl Glucose 107 H (70-99(Fasting)) mg/dl Calcium 8.4 L (8.6-10.3) mg/dl Intake and Output 02/07/24 02/08/24 02/08/24 22:59 06:59 14:59 Other: # Unmeasured Voids 1 2 Weight 78.8 kg 78.7 kg Weight Measurement Method Built in [facility] Diagnostic Findings Telemetry reviewed: NSR in the 's. Medications Administered Current Inpatient Medications Acetaminophen (Acetaminophen 325 Mg Tab) 650 mg PO Q4H PRN PRN Reason: Pain or Fever Stop: 03/02/24 01:55 Last Admin: 02/05/24 22:00 Dose: 650 mg Apixaban (Apixaban 5 Mg Tablet) 5 mg PO BID [facility] Stop: 03/02/24 08:59 Last Admin: 02/08/24 07:31 Dose: 5 mg Cefdinir (Cefdinir 300 Mg Cap) 300 mg PO BID STEPHEN; Protocol Stop: 02/11/24 08:59 Last Admin: 02/08/24 07:31 Dose: 300 mg Cyanocobalamin (Cyanocobalamin (B-12) 500 Mcg Tablet) 1,000 mcg PO DAILY [facility] Stop: 03/02/24 08:59 Last Admin: 02/08/24 07:32 Dose: 1,000 mcg Dextrose (Dextrose 50% 50 Ml Syringe) 25 - 50 ml IV UD PRN; Protocol PRN Reason: Hypoglycemia Protocol Stop: 03/02/24 01:55 Finasteride (Finasteride 5 Mg Tab) 5 mg PO DAILY [facility] Stop: 03/02/24 08:59 Last Admin: 02/08/24 07:31 Dose: 5 mg Fluticasone/Vilanterol (Fluticasone/Vilanterol 200/25mcg 14 Puffs/Inhaler) 1 puffs INH DAILY [facility] Stop: 03/02/24 08:59 Last Admin: 02/08/24 07:31 Dose: 1 puffs Gabapentin (Gabapentin 300 Mg Cap) 300 mg PO BID [facility] Stop: 03/02/24 08:59 Last Admin: 02/08/24 07:32 Dose: 300 mg Glucagon (Glucagon For Inj 1 Mg Vial) 1 mg SQ UD PRN; Protocol PRN Reason: Hypoglycemia Protocol Stop: 03/02/24 01:55 Glucose (Glucose 10 Tab/Tube) 4 - 8 tab PO UD PRN; Protocol PRN Reason: Hypoglycemia Treatment Stop: 03/02/24 01:55 Glucose (Glucose 40% Gel 15 Gm Tube) 15 - 30 gm PO UD PRN; Protocol PRN Reason: Hypoglycemia Protocol Stop: 03/02/24 01:55 Bumetanide 1 mg/ Syringe 4 mls @ 4 mls/min IV BID [facility] Stop: 03/07/24 14:59 Last Admin: 02/08/24 07:31 Dose: 4 mls/min Insulin Aspart (Insulin Aspart Per Unit Charge) 0 units SC ACHS [facility] Stop: 03/02/24 07:29 Last Admin: 02/08/24 08:37 Dose: Not Given Metoprolol Succinate (Metoprolol Succ 50mg Ext Rel Tab) 50 mg PO BID [facility] Stop: 03/04/24 08:59 Last Admin: 02/08/24 07:32 Dose: 50 mg Metoprolol Tartrate (Metoprolol Tartrate 1 Mg/Ml Vial) 5 mg IV Q5M PRN PRN Reason: Tachycardia Stop: 03/03/24 12:32 Miscellaneous (Carbohydrates For Hypoglycemia ) 15 - 30 gm PO UD PRN PRN Reason: Hypoglycemia Protocol Stop: 03/02/24 01:55 Pantoprazole Sodium (Pantoprazole 40 Mg Tab) 40 mg PO DAILY [facility] Stop: 03/02/24 08:59 Last Admin: 02/08/24 07:32 Dose: 40 mg Polyethylene Glycol (Polyethylene (Miralax) 17 Gm Pack) 17 gm PO DAILY PRN PRN Reason: Constipation Stop: 03/02/24 01:55 Potassium Chloride (Potassium Chloride Crtab 20 Meq Tabcr) 20 meq PO BID [facility] Stop: 03/06/24 20:59 Last Admin: 02/08/24 07:32 Dose: 20 meq Prednisone (Prednisone 5 Mg Tab) 5 mg PO DAILY [facility] Stop: 03/02/24 08:59 Last Admin: 02/08/24 07:32 Dose: 5 mg Rosuvastatin Calcium (Rosuvastatin Calcium 20 Mg Tab) 20 mg PO DAILY [facility] Stop: 03/04/24 08:59 Last Admin: 02/08/24 07:32 Dose: 20 mg Spironolactone (Spironolactone 25 Mg Tab) 25 mg PO DAILY [facility] Stop: 03/04/24 08:59 Last Admin: 02/08/24 07:32 Dose: 25 mg Vitamin D (Cholecalciferol 25 Mcg (1000 Units) Tab) 50 mcg PO DAILY [facility] Stop: 03/02/24 08:59 Last Admin: 02/08/24 07:31 Dose: 50 mcg
--- NOTE | 2024-02-08 13:35 | Hospitalist Progress Note ---
Date of Service February 08, 2024 Assessment & Plan (1) Sepsis: Plan: Mr. Peña is an 78-year-old male with past medical history significant for hyperlipidemia, steroid-induced hyperglycemia, diabetes not on any medications, history of pneumonia, history of SVT, history of chronic heart failure with preserved ejection fraction, longstanding persistent atrial fibrillation, aneurysm of ascending aorta, hypertension, BPH, osteoarthritis, cellulitis of right arm, polyneuropathy, history of rheumatoid arthritis who lives alone ambulates without support who presented to ED on 01/30 due to right lower extremity cellulitis and swelling. Patient was admitted for concern of sepsis. Probable Sepsis Right lower extremity cellulitis due to wound-- POA -Lactic acid 3.O >> resolved -MRSA nare negative --Venous Doppler:No ultrasonographic evidence of deep venous thrombosis involving the right lower extremity. --Leg X ray: No fractures within the right tibia or fibula. No evidence for acute osteomyelitis. Right lower leg soft tissue swelling. Daptomycin discontinued Currently on IV cefepime>> transition to cefdinir Continue wound care Continue leg elevation Plan to complete 10-day course of antibiotics Clinically improved, plan to discharge home today Acute on Chronic heart failure with preserved EF --Chest XRAY with pleural effusions and likely edema/vascular congestion --ECHO in 2021 with EF 60%; Last followed Cardiology in 2022 -Reports of intermittent compliance per daughter given concern with frequent urination BNP 137 Continue IV Bumex Monitor I's and O's, daily weight, volume status Appreciate cardiology input IV Bumex >>> transition to Lasix 40 mg daily. Also on Aldactone Needs follow-up with cardiology on discharge Chronic peripheral neuropathy On gabapentin Paroxysmal SVT Long-term persistent atrial fibrillation controlled rates, chronic Eliquis Borderline tachybrady syndrome Continue on metoprolol succinate 50 mg BID Continue on Eliquis Chronic Leukocytosis Chronic Macrocytic Anemia Vitamin B12 deficiency Follow Heme/onc, no immature cells or abnormal cells on diff. Baseline ~11.1 WBC monitor DM II Not on meds, A1C 7.6% Continue insulin sliding scale while hospitalized Diabetic diet COPD Stable continue inhalers Rheumatoid arthritis On prednisone 5 mg daily, 10mg prn BPH On finasteride Hyperlipidemia continue statin DVT Px: Eliquis Code Status Full code Disposition Home Admission and Anticipated Discharge Date Admission Date: January 31, 2024 Subjective Patient is seen and examined at bedside Leg edema much improved Denies any chest pain, dyspnea, dizziness, nausea, vomiting, abdominal pain Discussed with Cardiology today Review of Systems Review of Systems: All systems reviewed & are unremarkable except as noted in Subjective Physical Exam Physical Exam: Physical Exam: Vitals signs as noted above General Appearance:Moderately built and nourished, no apparent distress, Elderly Head: normocephalic, Atraumatic Eyes: normal inspection, EOMI Neck: supple, Trachea midline Respiratory/Chest: Normal breath sounds, CTA, No accessory muscle use Cardiovascular: Irregularly irregular, +murmur Abdomen/GI:Soft, Non tender, Bowel sounds present Extremities/Musculoskeletal:normal inspection, 2-2 + B/L LE edema improving Neurologic/Psych:AAOX3, grossly no focal neurological deficits Skin: normal color, warm Results & Data Results & Data Vital Signs (Past 12 Hours) Vital Signs Temp Pulse Pulse Pulse Resp BP Pulse Ox 02/08/24 11:41 36.4 C L 71 18 111/66 97 02/08/24 08:40 73 02/08/24 08:20 02/08/24 07:59 36.7 C 73 18 110/71 96 02/08/24 03:07 36.4 C L 75 18 85/50 L 97 O2 Del Method 02/08/24 11:41 Room Air 02/08/24 08:40 02/08/24 08:20 Room Air 02/08/24 07:59 Room Air 02/08/24 03:07 Room Air Laboratory Results BMP 02/08/24 05:41 Sodium 136 Potassium 3.9 Chloride 102 Carbon Dioxide 27 BUN 25 H Creatinine 1.14 Glucose 107 H Calcium 8.4 L
--- NOTE | 2024-02-08 13:58 | Discharge Summary ---
Date of Service February 08, 2024 Admission HPI Per Admitting Provider 78-year-old male with past medical history significant for hyperlipidemia, steroid-induced hyperglycemia, diabetes not on any medications, history of pneumonia, history of SVT, history of chronic heart failure with preserved ejection fraction, longstanding persistent atrial fibrillation, aneurysm of ascending aorta, hypertension, BPH, osteoarthritis, cellulitis of right arm, polyneuropathy, history of rheumatoid arthritis who lives alone ambulates without support and son lives close by comes because of right lower extremity cellulitis and sepsis. Patient states since last 2 weeks his lower extremities is getting swollen. Lately developed redness. Has a chronic scab on his right salgado which started to drain. Denies any fevers. Currently feeling chills. States having lot of pain in the lower extremities. Denies chest pain or shortness of breath. No cough. No headache. No dizziness. Vision is okay. No runny nose or sore throat. Appetite is okay. No difficulty swallowing. No nausea. No abdominal pain. Normal bowel and bladder movements. Hemodynamics okay currently. Past medical history. As mentioned above Past surgical history. Colonoscopy with biopsy. Dental surgery. Incision and drainage of the right elbow abscess/hematoma. Needle biopsy of spinal cord. Bilateral repair of inguinal hernia. Thoracotomy with biopsy of the right lung. Social history. Quit smoking in 1997. Smoked 1 pack a day for 30 years. No alcohol use. No drug use. Family history. Mother had breast cancer. Diabetes. Father had CAD. Hypertension. Sister has asthma. Brother has rheumatoid arthritis. Admission Exam Per Admitting Provider General- Not in distress Head- atraumatic Eyes- PERRL. ENT- oropharynx clear Neck- supple, no JVD. Lungs- clear to auscultation no wheezing or crackles. Heart- regular rhythm; no murmur, no gallop. Abdomen- normal bowel sounds, soft, nontender, no distension. Extremities- b/l lower extremity edema present RT>Lt. Rt lower extremity erythematous. Mild drainage seen from scab on right salgado. Neuro- alert, oriented ; PERRL, ; no facial palsy; no dysarthria; moves extremit ies. Principal Diagnosis Right Leg Cellulitis Probable Sepsis Acute on Chronic heart failure with preserved EF Discharge Data Allergies Allergy/AdvReac Type Severity Reaction Status Date / Time No Known Allergies Allergy Verified 01/31/24 21:44 Consultations 01/31/24 23:02 ED Decision to Admit Stat 02/03/24 08:38 Consult Cardiology Routine Ordered Studies 01/31/24 21:07 US venous doppler LE RT Stat Hospital Course (1) Sepsis: Mr. Peña is an 78-year-old male with past medical history significant for hyperlipidemia, steroid-induced hyperglycemia, diabetes not on any medications, history of pneumonia, history of SVT, history of chronic heart failure with preserved ejection fraction, longstanding persistent atrial fibrillation, aneurysm of ascending aorta, hypertension, BPH, osteoarthritis, cellulitis of right arm, polyneuropathy, history of rheumatoid arthritis who lives alone ambulates without support who presented to ED on 01/30 due to right lower extremity cellulitis and swelling. Patient was admitted for concern of sepsis. Probable Sepsis Right lower extremity cellulitis due to wound-- POA -Lactic acid 3.O >> resolved -MRSA nare negative --Venous Doppler:No ultrasonographic evidence of deep venous thrombosis involving the right lower extremity. --Leg X ray: No fractures within the right tibia or fibula. No evidence for acute osteomyelitis. Right lower leg soft tissue swelling. Daptomycin discontinued Currently on IV cefepime>> transition to cefdinir Continue wound care Continue leg elevation Plan to complete 10-day course of antibiotics Clinically improved, plan to discharge home today Acute on Chronic heart failure with preserved EF --Chest XRAY with pleural effusions and likely edema/vascular congestion --ECHO in 2021 with EF 60%; Last followed Cardiology in 2022 -Reports of intermittent compliance per daughter given concern with frequent urination BNP 137 Continue IV Bumex Monitor I's and O's, daily weight, volume status Appreciate cardiology input IV Bumex >>> transition to Lasix 40 mg daily. Also on Aldactone Needs follow-up with cardiology on discharge Chronic peripheral neuropathy On gabapentin Paroxysmal SVT Long-term persistent atrial fibrillation controlled rates, chronic Eliquis Borderline tachybrady syndrome Continue on metoprolol succinate 50 mg BID Continue on Eliquis Chronic Leukocytosis Chronic Macrocytic Anemia Vitamin B12 deficiency Follow Heme/onc, no immature cells or abnormal cells on diff. Baseline ~11.1 WBC monitor DM II Not on meds, A1C 7.6% Continue insulin sliding scale while hospitalized Diabetic diet COPD Stable continue inhalers Rheumatoid arthritis On prednisone 5 mg daily, 10mg prn BPH On finasteride Hyperlipidemia continue statin DVT Px: Eliquis Code Status Full code Disposition Home Total Time Total Time Spent Total Time Spent (In Minutes): 65 minutes Discharge Plan Discharge Items Patient Disposition: Home - Self-Care Reason For Visit: SEPSIS, CELLULITIS Discharge Diagnosis: Right Leg Cellulitis Probable Sepsis Acute on Chronic heart failure with preserved EF Activity: Per Instructions section Exercise/Sports: Gradually increase as tolerated Non-emergency contact: Primary Care Provider and Machine Shop Repair Technician Call non-emergency contact if: you have any medication questions, your symptoms worsen, your pain is concerning for you and you have a fever Follow-up/Referrals: Pura Banerjee CRNP [Outside Practitioners] - (Date & Time 02/15/2024 3:00 PM Provider Pura Banerjee CRNP Department [facility] ) [facility] [Primary Care Provider] - Diet: Carb Consistent or DM2 and Heart Healthy Addtl Attending Provider Instructions: Follow-up with your primary care physician Pura CHAPMAN on 02/15/2024 3:00 PM Follow-up with your career coordinator Dr. Parham in 2-3 weeks -- Complete the antibiotic with cefdinir as prescribed. Seek immediate medical attention if your symptoms reoccur or worsen Please take all medications as instructed on discharge list below. Please call if you have any questions or problems. You can reach a [facility] hospitalist on duty at [facility] 24 hours a day by calling [phone] Call your Primary Care doctor if any of the following symptoms or problems start or get worse: * Shortness of breath or difficulty breathing * Wake up at night short of breath * Chest pain * Cough * Swelling of your hands, feet, or legs * More fatigued or tired with your normal activity * Palpitations - sudden fast heart beats WEIGHT * Weigh yourself every morning after using the bathroom. * Use the same scale. * Wear the same amount of clothing. * Write your weight down on a chart. * Call your Primary Care doctor if you gain more than 2-3 pounds in 1-2 days. MEDICATIONS * Use this discharge instruction sheet for medication instructions. * Take your medications at the time your doctor ordered. * Do not skip a dose of your medicines. * If you miss a dose of medicine, take it as soon as possible, but DO NOT DOUBLE A DOSE. * Read your medicine information when you get home. * Know all of the side effects of your medicine. If in doubt, ask your pharmacist * Call your Primary Care doctor's office if you have any side effects. * Be sure all of your doctors know what medicine and herbs you take (including cold, flu, and herbal medicine). Take the following with you to your follow-up doctor appointments: * Weight Chart * Medication List * List of questions Do not drink excessive alcohol, beer or wine. Pending Studies at Discharge: No Stand-Alone Forms: [facility] Medications and DC Order Prescriptions: New furosemide 40 mg Tablet 40 mg PO QAM Qty: 30 1RF metoprolol succinate 50 mg Tablet Extended Release 24 Hr 50 mg PO BID Qty: 60 1RF cefdinir 300 mg Capsule 300 mg PO BID Qty: 5 0RF Continued prednisone 5 mg Tablet 5 mg PO DAILY Rx Instructions: MAY TAKE 10 MG DAILY IF NEEDED. spironolactone 25 mg Tablet 25 mg PO DAILY gabapentin 300 mg Capsule 300 mg PO BID finasteride 5 mg Tablet 5 mg PO DAILY cholecalciferol (vitamin D3) [Vitamin D3] 25 mcg (1,000 unit) Tablet 50 mcg PO DAILY apixaban 5 mg Tablet 5 mg PO BID pantoprazole 40 mg Tablet,Delayed Release (Dr/Ec) 40 mg PO DAILY cyanocobalamin (vitamin B-12) [Vitamin B-12] 1,000 mcg Tablet 1,000 mcg PO DAILY fluticasone propion-salmeterol [Wixela Inhub] 500-50 mcg/dose Blister With Device 1 inh INHALATION BID rosuvastatin [Crestor] 20 mg Tablet 20 mg PO DAILY Discontinued metoprolol succinate 50 mg Tablet Extended Release 24 Hr 25 mg PO BID furosemide [Lasix] 20 mg tablet 20 mg PO DAILY Qty: 30 0RF Discharge Orders: Discharge Order (Routine); Ordered 02/08/24 Ordered By: Sharad Bess Admission Data Admit Date/Time: 01/31/24 23:22 Attending Provider: Sharad Bess Admit Provider: Gian Vasquez Primary Care Provider: [facility] Other Providers: Gian Vasquez; Nicolás Reyes
[2024-02-09] MEDS ORDERED: FUROSEMIDE 40 MG TAB PO SCH (09:00)
== END 2024-02-08 14:52 | disposition home or self-care (01) | DRG 871 ==
LOC: ED 17:38 → SUATTDRO 23:22 → EDINP 23:22 → 1E 02-01 01:57 → 2N 02-03 01:43 → 2W 02-04 07:10

== ENCOUNTER 2024-03-25 11:07 | Inpatient (IN) ==
--- NOTE | 2024-03-25 11:33 | Emergency Department Note ---
Impression & Plan Cellulitis, Multiple skin tears, Thrombocytopenia ED Provider Note NAME: ROBERTO GARCIA AGE: 78 SEX: M : 1945 ARRIVES VIA: Walk-In INFORMANT: Patient, ED PROVIDER(S): Balwinder Moralez DO CHIEF COMPLAINT: Cellulitis HPI: The patient is an 78-year-old male who presented to the emergency department for an evaluation of leg redness. The patient suffered Skin tears to his left and right lower extremities over the weekend. He was started on antibiotics and scheduled to follow-up with the wound care center. They were unable to see him today and sent him to the emergency department for further evaluation. The patient denies having any chest pain or difficulty breathing. He denies having any fever or vomiting. He noticed some redness and swelling of his right leg. The left leg appears to be healing normally. They have been putting Neosporin on the leg. The patient has been taking the Keflex that was prescribed. ROS: See above HPI for pertinent positives & negatives. A total of 10 systems reviewed and were otherwise negative. PAST MEDICAL HISTORY: See Below PAST SURGICAL HISTORY: See Below FAMILY HISTORY: See Below SOCIAL HISTORY: See Below HOME MEDICATIONS: See Below ALLERGIES: See Below VITALS: See Below PHYSICAL EXAMINATION: GENERAL: Patient is awake alert in no acute distress patient is resting comfortably and showing no signs of anxiety EYES: The conjunctivae are clear. The pupils are round and reactive. EARS, NOSE, MOUTH AND THROAT: The nose is without any evidence of any deformity. NECK: The neck is nontender and supple. RESPIRATORY: Normal respiratory effort is noted there is no evidence of wheezing rhonchi or rales CARDIOVASCULAR: Regular rate and rhythm noted there no murmurs rubs or gallops normal S1 normal S2. GASTROINTESTINAL: The abdomen is soft. Abdomen is nontender. MUSCULOSKELETAL/EXTREMITIES: There is no evidence of gross deformity full range of motion is noted in the hips and shoulders. SKIN: There is a large defect in the anterior left leg. There is no surrounding erythema or swelling. There is no active bleeding. The right leg has 2 skin tears on the anterior salgado. There is surrounding cellulitis and edema. NEUROLOGIC: Patient is awake alert and oriented x3 MEDICAL DECISION MAKING: The patient is an 78-year-old male who presented to the emergency department for an evaluation of lower extremity swelling and redness. The patient was seen in our facility over the weekend after he suffered significant skin tears to both lower extremities. The left leg showed very deep skin tear but seems to be healing well. The right leg appears to have signs of cellulitis and edema. Given that patient's findings he was sent to follow-up with the wound care center but this was not possible today. Given his presentation in the emergency department today I do feel the patient would be a better candidate for inpatient management at this time. For this reason I discussed the patient's condition with the on-call [facility]. Triage Nursing notes reviewed. Prior medical records reviewed Vital Signs: reviewed and remarkable for no significant abnormalities Differential diagnosis: Cellulitis, abscess, MRSA infection, DVT, necrotizing fasciitis, dermatitis, drug eruption, allergic reaction, as well as other pathologies. ER treatment provided: See below Diagnostics interpreted by me: ECG: none Cardiac Monitoring: An order was placed for continuous cardiac monitoring. The monitor shows a rate of 74 bpm with sinus rhythm. Laboratory studies: As stated above and show below. Imaging studies: See below. Consultation(s): I discussed this case with Seema who is on-call for the [facility] group. Past Med/Surg History Problem List (Updated 03/25/24 @ 18:41 by Balwinder Moralez DO) Thrombocytopenia (Acute) Multiple skin tears (Acute) Cellulitis (Acute) Tear of skin of multiple sites of left lower extremity (Acute) History of CHF (congestive heart failure) (Acute) History of COPD (Acute) Bilateral edema of lower extremity (Acute) Bilateral cellulitis of lower leg (Acute) Acute on chronic heart failure with preserved ejection fraction (HFpEF) Bilateral cellulitis of lower leg Sepsis Vomiting (Acute) Pneumonia (Acute) Shortness of breath (Acute) Aspiration into airway (Acute) COPD exacerbation Tachycardia-bradycardia syndrome Sinus pause SOB (shortness of breath) (Acute) PAC (premature atrial contraction) (Acute) Chest pain (Acute) Hx of supraventricular tachycardia COPD (chronic obstructive pulmonary disease) Rheumatoid arthritis (Acute) Medical History (Updated 03/25/24 @ 18:41 by Balwinder Moralez DO) BPH (benign prostatic hyperplasia) Ascending aorta enlargement Surgical History History of thoracotomy H/O inguinal hernia repair Family History Father Heart disease Social History Smoking Status: Former smoker Tobacco Type: Cigarettes Cigarettes Per Day: 1 PPD; Second Hand Exposure: No; Do You Dip or Chew Tobacco: No; Hx Alcohol Use: No Hx Substance Use: No Preferred Language: Thai Communication Ability: Effective Medical Front Desk Coordinator Required: No Beliefs That Will Affect Care: None Current Living Situation: Alone Current Living Situation Comment: Lives alone, son lives in close proximity Feels Safe at Home: Yes Assistive Devices: None Allergies Allergies Allergy/AdvReac Type Severity Reaction Status Date / Time No Known Allergies Allergy Verified 03/25/24 15:03 Home Meds Home Medications Medication Instructions Recorded Confirmed finasteride 5 mg tablet 5 mg PO DAILY 04/25/20 03/25/24 gabapentin 300 mg capsule 300 mg PO BID 04/25/20 03/25/24 prednisone 5 mg tablet 5 mg PO BID 04/25/20 03/25/24 spironolactone 25 mg tablet 25 mg PO DAILY 04/25/20 03/25/24 cholecalciferol (vitamin D3) 25 50 mcg PO DAILY 07/30/20 03/25/24 mcg (1,000 unit) tablet (Vitamin D3) apixaban 5 mg tablet 5 mg PO BID 12/31/22 03/25/24 pantoprazole 40 mg tablet,delayed 40 mg PO DAILY 12/31/22 03/25/24 release cyanocobalamin (vitamin B-12) 1,000 mcg PO DAILY 01/31/24 03/25/24 1,000 mcg tablet (Vitamin B-12) fluticasone 500 mcg-salmeterol 50 1 inh inhalation BID 01/31/24 03/25/24 mcg/dose blistr powdr for inhalation (Wixela Inhub) rosuvastatin 20 mg tablet 20 mg PO DAILY 03/25/24 03/25/24 Previous Rx's Medication Instructions Recorded furosemide 40 mg tablet 40 mg PO QAM #30 tabs 02/08/24 metoprolol succinate 50 mg 50 mg PO BID #60 tabs 02/08/24 tablet,extended release 24 hr Results & Data (ED) Vital Signs Vital Signs - 24 hr 03/25/24 11:16 03/25/24 11:38 03/25/24 12:25 Pulse Rate 57 L Pulse Rate [Apical] 65 Pulse Rate from SpO2 Sensor Pulse Rhythm [Apical] Regular Pulse Strength [Apical] Normal Respiratory Rate 19 Respiratory Effort / Characteristics Non-Labored Spontaneous Respiratory Depth Normal Respiratory Pattern Regular Blood Pressure Blood Pressure [Left Arm] 115/70 Blood Pressure Mean Blood Pressure Mean [Left Arm] 85 Blood Pressure Position [Left Arm] Pulse Oximetry 98 Oxygen Delivery Method Room Air Sepsis Recent Fever Within 48 Hours No Sepsis New/Unexplained Change in Mental Status N/A Sepsis Action Taken by Nursing No Action Required 03/25/24 13:05 03/25/24 14:00 03/25/24 14:39 Pulse Rate 65 67 Pulse Rate [Apical] 64 Pulse Rate from SpO2 Sensor 66 Pulse Rhythm [Apical] Regular Pulse Strength [Apical] Normal Respiratory Rate 20 20 18 Respiratory Effort / Characteristics Non-Labored Spontaneous Respiratory Depth Normal Respiratory Pattern Regular Blood Pressure 122/77 122/81 Blood Pressure [Left Arm] 121/80 Blood Pressure Mean 92 94 Blood Pressure Mean [Left Arm] 93 Blood Pressure Position [Left Arm] Sitting Pulse Oximetry 98 99 Oxygen Delivery Method Room Air Sepsis Recent Fever Within 48 Hours Sepsis New/Unexplained Change in Mental Status Sepsis Action Taken by Nursing 03/25/24 14:40 03/25/24 14:48 03/25/24 14:51 Pulse Rate 72 71 Pulse Rate [Apical] 67 Pulse Rate from SpO2 Sensor 68 Pulse Rhythm [Apical] Pulse Strength [Apical] Respiratory Rate 19 19 14 Respiratory Effort / Characteristics Respiratory Depth Normal Respiratory Pattern Blood Pressure Blood Pressure [Left Arm] 122/81 Blood Pressure Mean Blood Pressure Mean [Left Arm] 94 Blood Pressure Position [Left Arm] Pulse Oximetry 99 98 Oxygen Delivery Method Room Air Sepsis Recent Fever Within 48 Hours Sepsis New/Unexplained Change in Mental Status Sepsis Action Taken by Nursing 03/25/24 15:00 03/25/24 15:12 03/25/24 15:15 Pulse Rate 63 72 63 Pulse Rate [Apical] Pulse Rate from SpO2 Sensor 62 Pulse Rhythm [Apical] Pulse Strength [Apical] Respiratory Rate 16 20 12 Respiratory Effort / Characteristics Respiratory Depth Respiratory Pattern Blood Pressure Blood Pressure [Left Arm] Blood Pressure Mean Blood Pressure Mean [Left Arm] Blood Pressure Position [Left Arm] Pulse Oximetry 99 Oxygen Delivery Method Sepsis Recent Fever Within 48 Hours Sepsis New/Unexplained Change in Mental Status Sepsis Action Taken by Nursing 03/25/24 15:22 03/25/24 15:45 03/25/24 16:06 Pulse Rate 68 65 Pulse Rate [Apical] Pulse Rate from SpO2 Sensor Pulse Rhythm [Apical] Pulse Strength [Apical] Respiratory Rate 17 Respiratory Effort / Characteristics Respiratory Depth Respiratory Pattern Blood Pressure 127/71 Blood Pressure [Left Arm] Blood Pressure Mean 85 Blood Pressure Mean [Left Arm] Blood Pressure Position [Left Arm] Pulse Oximetry Oxygen Delivery Method Sepsis Recent Fever Within 48 Hours Sepsis New/Unexplained Change in Mental Status Sepsis Action Taken by Nursing 03/25/24 18:17 Pulse Rate Pulse Rate [Apical] 74 Pulse Rate from SpO2 Sensor Pulse Rhythm [Apical] Pulse Strength [Apical] Respiratory Rate 18 Respiratory Effort / Characteristics Non-Labored Spontaneous Respiratory Depth Normal Respiratory Pattern Regular Blood Pressure Blood Pressure [Left Arm] 158/96 H Blood Pressure Mean Blood Pressure Mean [Left Arm] 116 Blood Pressure Position [Left Arm] Pulse Oximetry 100 Oxygen Delivery Method Room Air Sepsis Recent Fever Within 48 Hours Sepsis New/Unexplained Change in Mental Status Sepsis Action Taken by [facility] Medications Current Medication List: was personally reviewed by me Laboratory Data Attestation: I reviewed the patient's lab results. 03/25/24 11:41 03/25/24 11:41 Lab Results 03/25/24 Range/Units 11:41 WBC 12.73 H (4.8-10.8) K/ul RBC 3.48 L (4.70-6.10) M/uL Hgb 11.9 L (14.0-18.0) g/dl Hct 35.2 L (42.0-52.0) % MCV 101.1 H (80.0-100.0) fL MCH 34.2 H (25.0-34.0) pg MCHC 33.8 (32.0-36.0) g/dL RDW Std Deviation 57.1 H (36.4-46.3) fL RDW Coeff of Roxanna 15.3 H (11.5-14.5) % Plt Count 127 L (130-400) K/uL MPV 12.9 H (9.4-12.4) fL Immature Gran % (Auto) 1.9 % Neut % (Auto) 78.9 % Lymph % (Auto) 12.0 % Teller % (Auto) 6.6 % Eos % (Auto) 0.4 % Baso % (Auto) 0.2 % Neut # (Auto) 10.04 H (1.40-6.50) K/uL Lymph # (Auto) 1.53 (1.20-3.40) K/uL Teller # (Auto) 0.84 H (0.11-0.59) K/uL Eos # (Auto) 0.05 (0.00-0.50) K/uL Baso # (Auto) 0.03 (0.00-0.20) K/uL Immature Gran # (Auto) 0.24 H (0.01-0.20) K/uL PT 11.5 (9.0-12.0) Seconds INR 1.1 (0.9-1.1) APTT 26 (21-31) Seconds PTT Ratio 1.0 Sodium 131 L (136-145) mmol/L Potassium 4.8 (3.5-5.1) mmol/L Chloride 102 (98-107) mmol/L Carbon Dioxide 20 L (21-32) mmol/L Anion Gap 9 (3-11) BUN 32 H (6-23) mg/dl Creatinine 0.84 (0.6-1.4) mg/dl Est Cr Clr Drug Dosing Not Reportable Est GFR ( Amer) 95.8 ml/min Est GFR (Non-Af Amer) 82.7 ml/min BUN/Creatinine Ratio 38.1 H (10-20) Glucose 228 H (70-99(Fasting)) mg/dl Calcium 9.3 (8.6-10.3) mg/dl Total Bilirubin 0.6 (0.2-1.0) mg/dl AST 18 (13-39) U/L ALT 25 (7-52) U/L Alkaline Phosphatase 27 L (34-104) U/L C-Reactive Protein < 0.50 (0-0.5) mg/dl Total Protein 6.5 (6.0-8.3) gm/dl Albumin 3.9 (3.4-5.0) gm/dl Globulin 2.6 (2.5-4.0) gm/dl Albumin/Globulin Ratio 1.5 (0.9-2) Procalcitonin 0.10 (0-0.5) ng/ml Administered Medications Vancomycin HCl 2,000 mg/ (Sodium Chloride) 540 mls @ 200 mls/hr IV NOW ONE Stop: 03/25/24 19:17 Last Admin: 03/25/24 18:28 Dose: 200 mls/hr Documented By: RODRIGO Discontinued Medications Ceftriaxone Sodium (Rocephin) 2,000 mg in 50 mls @ 100 mls/hr IV NOW STA Stop: 03/25/24 12:01 Last Infusion: 03/25/24 13:41 Dose: Infused Documented By: Admin: 03/25/24 11:48 Dose: 100 mls/hr Documented By: CANDICE Discharge Plan Visit Data Chief Complaint: Wound Recheck Stated Complaint: BANDAGE CHANGE ED Provider: Balwinder Moralez Discharge Problem: Cellulitis, Multiple skin tears, Thrombocytopenia Patient Disposition: Admitted As Inpatient Discharge Instructions Interventions: ED Discharge Assessment Last Done: 03/25/24 18:28 Forms Stand Alone Forms: [facility] Prescriptions Prescriptions: No Action prednisone 5 mg Tablet 5 mg PO BID spironolactone 25 mg Tablet 25 mg PO DAILY gabapentin 300 mg Capsule 300 mg PO BID finasteride 5 mg Tablet 5 mg PO DAILY cholecalciferol (vitamin D3) [Vitamin D3] 25 mcg (1,000 unit) Tablet 50 mcg PO DAILY apixaban 5 mg Tablet 5 mg PO BID pantoprazole 40 mg Tablet,Delayed Release (Dr/Ec) 40 mg PO DAILY cyanocobalamin (vitamin B-12) [Vitamin B-12] 1,000 mcg Tablet 1,000 mcg PO DAILY fluticasone propion-salmeterol [Wixela Inhub] 500-50 mcg/dose Blister With Device 1 inh INHALATION BID furosemide 40 mg Tablet 40 mg PO QAM Qty: 30 1RF metoprolol succinate 50 mg Tablet Extended Release 24 Hr 50 mg PO BID Qty: 60 1RF rosuvastatin [Crestor] 20 mg Tablet 20 mg PO DAILY Referrals Referrals: [facility] [Primary Care Provider] - Discharge Problem: Cellulitis Qualifiers: Site of cellulitis: extremity Site of cellulitis of extremity: lower extremity Laterality: right Qualified Code(s): L03.115 - Cellulitis of right lower limb
[2024-03-25] MEDS: cefTRIAXone SODIUM 2,000 MG/50 ML BAG IV STA (11:48)
[2024-03-25 12:04] LABS: Basophils # (auto) 0.03 K/uL (0.00-0.20); Basophils % (auto) 0.2 %; Eosinophils # (auto) 0.05 K/uL (0.00-0.50); Eosinophils % (auto) 0.4 %; Hematocrit (blood only) 35.2 % (42.0-52.0); Hemoglobin 11.9 g/dl (14.0-18.0); Immature Granulocytes # (auto) 0.24 K/uL (0.01-0.20); Immature Granulocytes % (auto) 1.9 %; Lymphocytes # (auto) 1.53 K/uL (1.20-3.40); Mean Corpuscular Hemoglobin 34.2 pg (25.0-34.0); Mean Corpuscular Hgb Conc 33.8 g/dL (32.0-36.0); Mean Corpuscular Volume 101.1 fL (80.0-100.0); Mean Platelet Volume 12.9 fL (9.4-12.4); Monocytes # (auto) 0.84 K/uL (0.11-0.59); Monocytes % (auto) 6.6 %; Neutrophils # (auto) 10.04 K/uL (1.40-6.50); Neutrophils % (auto) 78.9 %; Platelet Count 127 K/uL (130-400); RDW Coefficient of Variation 15.3 % (11.5-14.5); RDW Standard Deviation 57.1 fL (36.4-46.3); Red Blood Count 3.48 M/uL (4.70-6.10); White Blood Count 12.73 K/ul (4.8-10.8)
[2024-03-25 12:29] LABS: INR 1.1 (0.9-1.1); Partial Thromboplastin Time 26 Seconds (21-31); Prothrombin Time 11.5 Seconds (9.0-12.0)
[2024-03-25 12:31] LABS: Alanine Aminotransferase 25 U/L (7-52); Albumin Globulin Ratio 1.5 (0.9-2); Albumin Level 3.9 gm/dl (3.4-5.0); Alkaline Phosphatase 27 U/L (34-104); BUN Creatinine Ratio 38.1 (10-20); Bilirubin,Total 0.6 mg/dl (0.2-1.0); Blood Urea Nitrogen 32 mg/dl (6-23); C Reactive Protein < 0.50 mg/dl (0-0.5); Calcium 9.3 mg/dl (8.6-10.3); Carbon Dioxide 20 mmol/L (21-32); Chloride 102 mmol/L (98-107); Est GFR (African American) 95.8 ml/min; Est GFR (Non-African American) 82.7 ml/min; Globulin 2.6 gm/dl (2.5-4.0); Glucose 228 mg/dl (70-99(Fasting)); Total Protein 6.5 gm/dl (6.0-8.3)
[2024-03-25 12:41] LABS: Anion Gap 9 (3-11); Potassium 4.8 mmol/L (3.5-5.1); Sodium 131 mmol/L (136-145)
[2024-03-25 12:46] LABS: Aspartate Aminotransferase 18 U/L (13-39)
--- NOTE | 2024-03-25 14:02 | History & Physical Report ---
Date of Service March 25, 2024 Assessment & Plan (1) Bilateral cellulitis of lower leg: (2) Rheumatoid arthritis: (3) COPD (chronic obstructive pulmonary disease): (4) Hx of supraventricular tachycardia: (5) BPH (benign prostatic hyperplasia): Plan 78 year old male that presents to the ED as recommended by the wound clinic. He has history of chronic left lower extremity wounds with previous wound cultures that develop coag negative staph patient was standing at the top of his stairs and he fell onto his knees causing skin tears to open. Patient has historically chronic wound and delayed wound healing in his left lower leg. In 12/2022 patient had wound culture grow coag negative staph. He completed a course of doxycycline at that time. Leukocytosis 12.73 neutrophil 10.04, hemoglobin 11.9, procalcitonin negative, hyponatremic 131; seems to be chronic based on historic values. Glucose level 228. Takes Eliquis twice daily for A-fib and suspect Eliquis plus prednisone causing skin to be frail and thin. Patient does report bruising quite easily. Hgb 11.9; baseline 10-11. Entire LLE anterior salgado with sloughing of skin and bottom of salgado and at the top of his ankle with tendon exposure and adipose tissue. Muscle exposed and some area. RLE with 2 dime sized open wounds that appear to be healing. Admit for bilateral lower extremity cellulitis and delayed wound healing in the setting of chronic anticoagulation and steroid use. Patient does not meet sepsis criteria at this time. Will continue ceftriaxone and add vancomycin for MRSA coverage, obtain blood cultures , WOCN consult, orthopedics consult placed given tendon exposure. Bilateral cellulitis of lower leg: Chronic Ongoing last year but did resolve. Patient sustained a mechanical fall opening up his wounds again due to fragility of his skin Previous wound culture 12/29: Coag negative staph; completed a course of doxycycline Was to be seen in wound clinic as an outpatient today and they sent him here due to elevated white count and lack of appointment time Was prescribed Keflex and took 1 dose this morning. Leukocytosis 12.73; neutrophil 10.04 Started on ceftriaxone in ED; will continue and add vancomycin for now and adjust based on wound/blood cultures MRSA screen with wound culture Blood cultures ordered WOCN consult placed Orthopedics consult placed given tendon exposure Hyperglycemia: Chronic Serum glucose 228; likely steroid-induced hyperglycemia Will check A1c and fasting glucose in a.m. Atrial fibrillation: History of SVT: Chronic Takes Eliquis and metoprolol; continue HFpEF: Chronic Takes Lasix and Aldactone; continue Most recent echo RA: Chronic takes Prednisone BID; likey contributing to fragility of dermis Takes Gabapentin; continue COPD: Chronic Takes Wixela; continue BPH: Chronic Takes finasteride;continue HLD: Chronic Takes rosuvastatin;continue GERD: Chronic Takes Omeprazole; continue Disposition: PCP: [place] Code Status: Full Code VTE Prophylaxis: On Eliquis I spent a total of 87 minutes coordinating, documenting, and providing care for this patient excluding time spent in the performance of separately billed services. All of the aforementioned completed while collaborating with the assigned attending physician for a full treatment plan. Please see their a ddendum for further details. History of Present Illness Chief Complaint: delayed wound healing Primary Care Provider: [facility] Mr. Peña is an 78 year old male that presents to the ED as recommended by the wound clin He has history of chronic left lower extremity wounds with previous wound cultures that develop coag negative staph patient was standing at the top of his stairs and he fell onto his knees causing skin tears to open. Patient has historically chronic wound and delayed wound healing in his left lower leg. In 12/2022 patient had wound culture grow coag negative staph. He completed a c ourse of doxycycline at that time. And followed up with wound clinic. In the ED leukocytosis 12.73 neutrophil 10.04, hemoglobin 11.9, procalcitonin negative, hyponatremic 131; seems to be chronic based on historic values. Glucose level 228. Most recent echocardiogram 01/30 EF 55 to 60% with normal LV wall motion. Mild MR. Additional past medical history includes A-fib, history of SVT, AAA, rheumatoid arthritis, HFpEF, HLD, and BPH. Patient reports chewing snuff without tobacco smoking, no alcohol or recreational drug use. Patient does take Eliquis twice daily for A-fib and suspect Eliquis plus prednisone causing skin to be frail and thin. Patient does report bruising quite easily. Hgb 11.9; baseline 10-11. No overt signs of bleeding and wound is oozing rather than overtly bleeding. Patient denies headache, visual or auditory changes, dizziness, fever or chills, chest pain, palpitations, shortness of breath, N/V/D, abdominal pain or tenderness, other falls. Patient sitting in his hospital bed in no apparent distress. Patient's wounds were just received new dressings. Undressed for visualization and entire LLE anterior salgado with sloughing of skin and bottom of salgado and at the top of his ankle with tendon exposure and adipose tissue. Muscle exposed and some area. RLE with 2 dime sized open wounds that appear to be healing. Patient will be admitted for further evaluation management of bilateral lower extremity cellulitis and delayed wound healing in the setting of chronic anticoagulation and steroid use. Patient does not meet sepsis criteria at this time. Will continue ceftriaxone and add vancomycin for MRSA coverage, obtain blood cultures, WOCN consult, orthopedics consult placed. Will check A1C and fasting glucose in AM. Allergies Allergy/AdvReac Type Severity Reaction Status Date / Time No Known Allergies Allergy Verified 03/25/24 15:03 Home Medications Medication Instructions Recorded Confirmed Type finasteride 5 mg tablet 5 mg PO DAILY 04/25/20 03/25/24 History gabapentin 300 mg capsule 300 mg PO BID 04/25/20 03/25/24 History prednisone 5 mg tablet 5 mg PO BID 04/25/20 03/25/24 History spironolactone 25 mg tablet 25 mg PO DAILY 04/25/20 03/25/24 History cholecalciferol (vitamin D3) 25 50 mcg PO DAILY 07/30/20 03/25/24 History mcg (1,000 unit) tablet (Vitamin D3) apixaban 5 mg tablet 5 mg PO BID 12/31/22 03/25/24 History pantoprazole 40 mg tablet,delayed 40 mg PO DAILY 12/31/22 03/25/24 History release cyanocobalamin (vitamin B-12) 1,000 mcg PO DAILY 01/31/24 03/25/24 History 1,000 mcg tablet (Vitamin B-12) fluticasone 500 mcg-salmeterol 50 1 inh inhalation BID 01/31/24 03/25/24 History mcg/dose blistr powdr for inhalation (Wixela Inhub) furosemide 40 mg tablet 40 mg PO QAM #30 tabs 02/08/24 03/25/24 Rx metoprolol succinate 50 mg 50 mg PO BID #60 tabs 02/08/24 03/25/24 Rx tablet,extended release 24 hr rosuvastatin 20 mg tablet 20 mg PO DAILY 03/25/24 03/25/24 History Past Med/Surg History Problem List (Updated 03/25/24 @ 18:41 by Balwinder Moralez DO) Thrombocytopenia (Acute) Multiple skin tears (Acute) Cellulitis (Acute) Tear of skin of multiple sites of left lower extremity (Acute) History of CHF (congestive heart failure) (Acute) History of COPD (Acute) Bilateral edema of lower extremity (Acute) Bilateral cellulitis of lower leg (Acute) Acute on chronic heart failure with preserved ejection fraction (HFpEF) Bilateral cellulitis of lower leg Sepsis Vomiting (Acute) Pneumonia (Acute) Shortness of breath (Acute) Aspiration into airway (Acute) COPD exacerbation Tachycardia-bradycardia syndrome Sinus pause SOB (shortness of breath) (Acute) PAC (premature atrial contraction) (Acute) Chest pain (Acute) Hx of supraventricular tachycardia COPD (chronic obstructive pulmonary disease) Rheumatoid arthritis (Acute) Medical History (Updated 03/25/24 @ 18:41 by Balwinder Moralez DO) BPH (benign prostatic hyperplasia) Ascending aorta enlargement Surgical History History of thoracotomy H/O inguinal hernia repair Family History Father Heart disease Social History Smoking Status: Former smoker Tobacco Type: Cigarettes Cigarettes Per Day: 1 PPD; Second Hand Exposure: No; Do You Dip or Chew Tobacco: No; Hx Alcohol Use: No Hx Substance Use: No Preferred Language: Polish Communication Ability: Effective Art History Instructor Required: No Beliefs That Will Affect Care: None Current Living Situation: Alone Current Living Situation Comment: Lives alone, son lives in close proximity Feels Safe at Home: Yes Assistive Devices: None Review of Systems Review of Systems: Neuro: (-) Falls, trauma, slurred speech (-) fevers HEENT: (-) HERNANDEZ, dizziness, dysphagia, visual or auditory changes CV: (-) CP, palpitations, swelling Resp: (-) SOB GI: (-) appetite changes, N/V/D, bowel changes : (-) urinary changes Skin: (-) rashes (+) BL LE wounds with seroussangenous drainage. Psych: (-) anxiety, depression Physical Exam Physical Exam: Neuro: AAOx4, PERRLA, no aphagia, memory changes, CNII-XII grossly intact HEENT: head normocephalic, moist mucus membranes CV: S1/S2, (-) M/G/R, (-) edema, cap refill < 3 seconds Resp: Lungs CTA in all mcbride. On RA GI: Abdomen S/NT/ND, Ax4 bowel sounds, (-) CVA tenderness Musculoskeletal: 5/5 B/L UE strength, 5/5 B/L LE strength. No gait disturbance. Skin: (-) rashes , (-) erythema. Psych: euthymic mood Results & Data Results & Data Vital Signs (Past 12 Hours) Vital Signs Pulse Pulse Resp BP Pulse Ox O2 Del Method 03/25/24 13:05 64 20 121/80 98 Room Air 03/25/24 12:25 57 L 03/25/24 11:38 65 19 115/70 98 Room Air Laboratory Results Short CBC 03/25/24 Range/Units 11:41 WBC 12.73 H (4.8-10.8) K/ul Hgb 11.9 L (14.0-18.0) g/dl Hct 35.2 L (42.0-52.0) % Plt Count 127 L (130-400) K/uL BMP 03/25/24 11:41 Sodium 131 L Potassium 4.8 Chloride 102 Carbon Dioxide 20 L BUN 32 H Creatinine 0.84 Glucose 228 H Calcium 9.3 Liver Function 03/25/24 Range/Units 11:41 Total Bilirubin 0.6 (0.2-1.0) mg/dl AST 18 (13-39) U/L ALT 25 (7-52) U/L Alkaline Phosphatase 27 L (34-104) U/L Albumin 3.9 (3.4-5.0) gm/dl Code Status & VTE Plan Code Status Full code in the event of cardiac or respiratory arrest Supervising Physician Co-Signing Physician Notes 78-year-old male with PMH of COPD, rheumatoid arthritis, supraventricular tachycardia, BPH presented to the ED with bilateral lower extremity cellulitis. Patient has extensive left lower extremity wound with exposure of muscles and tendons. Wound care consult, orthopedic consulted, vancomycin and Rocephin, blood and wound culture. On examination: GENERAL: Alert and oriented x3. NAD, on RA. HEENT: No pallor, no icterus. Pupils equal, round and reactive to light. Oral mucosa moist. NECK: No JVD, no neck masses. HEART: S1 and S2 heard. Regular rate and rhythm. No murmur, no gallop. RESPIRATORY SYSTEM: Normal AP diameter. No accessory muscle use. No wheezing, no crackles. ABDOMEN: Soft, bowel sounds present, nontender, no distention. CENTRAL NERVOUS SYSTEM: No facial droop. Speech is clear. Obeys simple commands. Moves extremities. EXTREMITIES: Lower extremities w/ clean dressing w/o soakage. Rt pedal edema 1+, Lt pedal edema trace. I have seen and examined the patient and have discussed the case with the provider above. I agree with the assessment and plan as stated.
[2024-03-25] MEDS ORDERED: MAGNESIUM HYDROXIDE SUSP 30 ML UDC PO PRN (15:05)
[2024-03-25] MEDS ORDERED: ALUMINUM/MAGNESIUM SUSP 30 ML UDC PO PRN (15:05)
[2024-03-25] MEDS ORDERED: POLYETHYLENE (MIRALAX) 17 GM PACK PO PRN (15:05)
[2024-03-25] MEDS ORDERED: ONDANSETRON INJ 2 MG/ML 2 ML VIAL IV PRN (15:05)
[2024-03-25] MEDS ORDERED: VANCOMYCIN CONSULT ACTIVE PRN (16:36)
[2024-03-25] MEDS: VANCOMYCIN HCL 2,000 MG in SODIUM CHLORIDE 0.9% 500 ML IV ONE (18:28)
[2024-03-25] MEDS: METOPROLOL SUCC 50MG EXT REL TAB PO SCH (20:27)
[2024-03-25] MEDS: GABAPENTIN 300 MG CAP PO SCH (20:27)
[2024-03-25] MEDS: APIXABAN 5 MG TABLET PO SCH (20:27)
[2024-03-25] MEDS: predniSONE 5 MG TAB PO SCH (20:27)
[2024-03-25] MEDS: ACETAMINOPHEN 325 MG TAB PO PRN (22:15)
[2024-03-25] MEDS: FLUTICASONE/VILANTEROL 100/25MCG 14 PUFFS/INHALER INH SCH (22:15)
--- OUTSIDE RECORDS SUMMARY | 2024-03-26 00:32 | External Medical Summary | Summary of Care ---
Author Name Unknown Organization [facility] Address [address] [facility] [place] [address] Phone [phone] Care Team Providers Care Newspaper Subscription Solicitor Name Role Phone Unavailable Primary Care Provider Unavailabl e Reason for Visit * Reason Onset Date Comments Advice 03/25/2024 Encounter Details Date Type Department Care Team (Late st Contact Info) Description 03/25/2024 Telephone Family Practice [facility] [address] [place] [address] Pura Banerjee CRNP [address] [place] [address] Advice Allergies Active Allergy Reactions Criticality Noted Date Comments Other - Drugs Diarrhea,Nausea/vomiting 10/12/18 99 Dimox documented as of this encounter (statuses as of 03/25/2024) Medications Medication Sig Dispensed Refills Start Date End Date Status finasteride (PROSCAR) 5 MG Tablet Take 1 Tab by mouth daily. 90 Tab 3 09/26/2016 Active Vitamin D (Cholecalciferol) 25 MCG (1000 UT) Oral Tablet Take by mouth. 1 tab twice daily Active Apixaban 5 MG Oral Tablet (ELIQUIS)Indicati ons:A-fib (HCC) Take 1 Tab by mouth 2 times a day. 180 Tab 3 09/04/2020 Active predniSONE 2.5 MG Oral Tablet (DELTASONE) Take 2 Tablets by mouth in the morning and 2 Tablets before bedtime. Active Pantoprazole Sodium 40 MG Oral Tablet Delayed Release (PROTONIX) Take 1 Tab by mouth daily. 30 Tab 5 09/11/2020 Active Spironolactone 25 MG Oral Tablet (Aldactone) Take 1 Tablet by mouth in the morning. 90 Tab 3 03/05/2021 Active Gabapentin 300 MG Oral Capsule (Neurontin) Take 1 Capsule by mouth in the morning and 1 Capsule before bedtime. Active Fluticasone-Salme terol 500-50 MCG/ACT Inhalation Aerosol Powder Breath Activated (Advair Diskus) USE 1 INHALATION BY ORAL INHALATION TWICE A DAY FOR COPD REPLACES SYMBICORT RINSE MOUTH AFTER USE 02/10/2022 Active B-12 1000 MCG Oral Tablet daily. 01/31/2024 Active Furosemide 20 MG Oral Tablet (Lasix)Indication s:HTN, goal below 140/90,Dyslipidem ia, goal LDL below 70 Take 2 Tablets by mouth in the morning. 180 Tablet 3 02/15/2024 Active Additional Information Patient taking differently: 20 mgOral Daily(AM), Reported on 03/15/2024 Metoprolol Succinate ER 50 MG Oral Tablet Extended Release 24 Hour (toPROL XL)Indications:HT N, goal below 140/90,Dyslipidem ia, goal LDL below 70 Take 1 Tablet by mouth in the morning and 1 Tablet before bedtime. 180 Tablet 3 02/15/2024 Active Rosuvastatin Calcium 20 MG Oral Tablet (Crestor)Indicati ons:HTN, goal below 140/90,Dyslipidem ia, goal LDL below 70 Take 1 Tablet by mouth in the morning. 90 Tablet 3 02/15/2024 Active Mupirocin 2 % External Ointment (Bactroban) Apply topically to affected area 3 times a day for 14 days. To affected area for up to 14 days. 30 g 03/15/2024 03/29/2024 Active documented as of this encounter (statuses as of 03/25/2024) Active Problems Problem Noted Date Diagnosed Date Hypertensive heart disease w ith chronic diastolic congestive heart failure 03/15/2024 Superficial foreign body of right leg without [...] as of this encounter (statuses as of 03/25/2024) Resolved Problems Problem Noted Date Diagnosed Date [...] as of this encounter (statuses as of 03/25/2024) Immunizations Name Administration Dates Next Due Pneumococcal Conjugate Vacci ne, 20-valent ([id number]) 08/02/2022 Pneumococcal Polysaccharide PPV23 (Pneumovax) 07/30/2020,07/23/2007 Seasonal [...] encounter Miscellaneous Notes * Telephone Encounter - Kitty Avila LPN - 03/25/2024 11:56 AM EDT See other TE form today. Pt currently in ER. * Telephone Encounter - Sydni Bush LPN - 03/25/2024 10:17 AM EDT There is another encounter on this pt. Wound care referral. Pura is not here, last saw pt. No PCPassigned. Can we add onto schedule for wound check/dressing? * Telephone Encounter - Elif Alcala OSA - 03/25/2024 9:21 AM EDT Pt's son Devon is calling because he needs to get the dressing changed on his wound and can't get in to wound care until tomorrow. He wants to know if he can be squeezed in today documented in this encounter Plan of Treatment Upcoming Encounters Date Type Department Care Team (Late st Contact Info) Description 04/09/2024 8:30 AM EDT Office Visit Cardiology, [facility] [address] [place] [address] Ian Denny MD [address] [place] [address] 08/16/2024 11:30 AM EST Office Visit [facility]ematology/Oncology [facility] [address] [facility] [address] Meghan Cristina CRNP [address] [place] [address] Health Maintenance Due Date Last Done Comments COVID-19 Vaccine (#1) 1950 Albumin/Creatinine Ratio 1961 Diabetic Foot Exam 1961 Zoster Vaccines (1 of 2) 1962 DXA Scan 11/04/2016 11/04/2013, 10/10, 10/22/2010, Additional history exists HbA1c 09/28/2023 03/29/2023, 10/10, 10/24/2019, Additional history exists Depression Screening 01/11/2024 01/10/2023 Diabetic Eye Exam 05/22/2024 05/22/2023, , 09/14/1998, Additional history exists GFR 02/14/2025 02/15/2024, 01/08, 03/29/2023, Additional history exists DTaP,Tdap,and Td Vaccines (2 - Td or [...] filedocumented as of this encounter Advance Directives * Full Code (Latest Code Status on File) Date Activated Date Inactivated Comments 07/15/2022 2:11 PM 07/22/2022 4:34 PM This order reflects the patients wishes and were consensually agreed upon. Question Answer Comments Discussion of Advance Directives occurred with: Patient
--- OUTSIDE RECORDS SUMMARY | 2024-03-26 00:33 | External Medical Summary | Summary of Care ---
Author Name Unknown Organization [facility] Address [address] [place] [address] Phone [phone] Care Team Providers Care Recruitment Assistant Name Role Phone Unavailable Primary Care Provider Unavailabl e Reason for Visit * Reason Onset Date Comments Referral 03/25/2024 Encounter Details Date Type Department Care Team (Late st Contact Info) Description 03/25/2024 Telephone Family Practice [facility] [address] [place] [address] Pura Banerjee CRNP [address] [place] [address] Referral Allergies Active Allergy Reactions Criticality Noted Date [...] 03/25/2024) Immunizations Name Administration Dates Next Due Influenza, Whole Virus 07/09/2000,07/26/1999 Pneumococcal Conjugate Vacci ne, 20-valent ([id number]) 08/02/2022 Pneumococcal Conjugate Vacci ne, 7 Valent 07/09/1999 Pneumococcal Polysaccharide PPV23 (Pneumovax) 07/30/2020,07/23/2007 Seasonal Influenza Virus Vac cine, Unspecified Formulation 07/27/2021,07/10/2020,07/10/2019,07/24,07/06/2018,07/08/2015,06/13/2015 ,07/07/2014,07/03/2013,07/23/2012,06/10,07/29/2010,07/09/2010, 8,08/20/2007,07/23/2007,09/22/2005,02/2002,09/13/2001,07/09/2000,07/26/19 99 Seasonal Influenza, PF, 6 M & above, IM , (FluLaval or Fluzone) 07/10/2020,07/10/2019,07/06/2018 Seasonal Influenza, Quadriva lent Hd (Fluzone Hd) 06/16/2023,07/27/2021 Seasonal Influenza, Split, I IV3, With Preserve, Inj 07/08/2015,07/07/2014,07/03/2013,07/06,07/23/2008,07/23/2007,09/22/2005 ,08/13/2002,09/13/2001 Seasonal Influenza, Trivalen t, Adjuvanted, 65+ yrs 08/09/2018 TD - Tetanus/Diptheria (ADULT) 05/20/1999 TDAP (age 10 and older)(Boostrix) 02/07/2016 documented [...] as of this encounter Miscellaneous Notes * Addendum Note - Irene Marroquin LPN - 03/25/2024 12:07 PM EDTAddended by: IRENE MARROQUIN on: 03/25/2024 12:07 PM Modules accepted: Orders * Telephone Encounter - Irene Marroquin LPN - 03/25/2024 11:50 AM EDT Called pt son-- To let them know pt referral was placed and faxed. Kendrick said they are at the ER now because wound care was no able to get him in until tomorrow. Disregarding emergent wound care referral to send to [facility] now since pt is in getting wound care at [facility] currently. [facility] is currently doing wound care on leg, drawing more labs (culture) , as well as giving IV abx. They have a [facility]ound care appt tomorrow at 1 they plan on still attending, unless pt gets admitted. * Telephone Encounter - Doug Wharton MD - 03/25/2024 10:21 AM EDT Ordered signed after chart review. * Telephone Encounter - Luis Batista OSA - 03/25/2024 8:12 AM EDT Pt's son calling stating pt was seen at [facility] ER on Friday 03/23. Pt's son states pt had a fall andpt injured his L leg and needs wound care at home. His leg has stitches and large open wounds that need dressed. Pt is on blood thinners. Pt's son is requesting a home health referral for wound care from [facility]. Pt needs referral as soon as possible pt's wound dressings need changed today 03/25. Please call pt's son at [phone]. documented in this encounter Plan of Treatment Upcoming Encounters Date Type Department Care Team (Late st Contact Info) Description 04/09/2024 8:30 AM EDT Office Visit Cardiology, [facility] [address] [place] [address] Ian Denny MD [address] [place] [address] 08/16/2024 11:30 AM EST Office Visit Hematology/Oncology [facility] [address] [facility] [address] Meghan Cristina CRNP [address] [place] [address] [place] [address] Health Maintenance Due Date Last Done Comments [...] as of this encounter Visit Diagnoses Diagnosis Open wound of left lower extremity, subsequent encounter- Primary documented in this encounter Advance Directives * Full Code (Latest Code Status on File) Date Activated Date Inactivated Comments 07/15/2022 2:11 PM 07/22/2022 4:34 PM This order reflects the patients wishes and were consensually agreed upon. Question Answer Comments Discussion of Advance Directives occurred with: Patient
--- OUTSIDE RECORDS SUMMARY | 2024-03-26 00:33 | External Medical Summary | Summary of Care ---
Author Name Unknown Organization [facility] Address [address] [facility] [place] [address] Phone [phone] Care Team Providers Care Assistant Professor Of Religion Name Role Phone Unavailable Primary Care Provider Unavailabl e Reason for Visit * Reason Onset Date Comments Referral 03/25/2024 Encounter Details Date Type Department Care Team (Late st Contact Info) Description 03/25/[address] [facility] [address] [place] [address] Pura Banerjee CRNP [address] [place] [address] Referral Allergies Active Allergy Reactions Criticality Noted [...] Virus 07/09/2000,07/26/1999 Pneumococcal Conjugate Vacci ne, 20-valent ([id number]) 08/02/2022 Pneumococcal Conjugate Vacci ne, 7 Valent [...] emergent wound care referral to send to [facility] now since pt is in getting wound care [place] [facility] currently. [facility] is currently doing wound care on leg, drawing more labs (culture) , as well as giving IV abx. They have a [facility] Wound care appt tomorrow at 1 they plan on still attending, unless pt gets admitted. * Telephone Encounter - Doug Wharton MD - 03/25/2024 10:21 AM EDT Ordered signed after chart review. * Telephone Encounter - Luis Batista OSA - 03/25/2024 8:12 AM EDT Pt's son calling stating pt was seen at [facility] ER on Friday 03/23. Pt's son states pt had a fall andpt injured his L leg and needs wound care at home. His leg has stitches and large open wounds that need dressed. Pt is on blood thinners. Pt's son is requesting a home health referral for wound care from [facility]. Pt needs referral as soon as possible pt's wound dressings need changed today 03/25. Please call pt's son at [phone]. documented in this encounter Plan of Treatment Upcoming Encounters Date Type Department Care Team (Late st Contact Info) Description 04/09/2024 8:30 AM EDT Office Visit Cardiology, [facility] [address] [place] [address] Ian Denny MD [address] [place] [address] 08/16/2024 11:30 AM EST Office Visit Hematology/Oncology [facility] [address] [facility] [address] Meghan Cristina CRNP [address] [place] [address] [place] [address] Health Maintenance Due Date [...]
--- OUTSIDE RECORDS SUMMARY | 2024-03-26 00:33 | External Medical Summary | Summary of Care ---
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 [employer] Name Role Phone Unavailable Primary Care Provider Unavailabl e Reason for Visit * Reason Onset Date Comments Referral 03/25/2024 Encounter Details Date Type Department Care Team (Late st Contact Info) Description 03/25/2024 Telephone Family Practice [facility] [address] [place] [address] Pura Banerjee CRNP [address] [place] [address] Referral Allergies Active Allergy Reactions Criticality Noted [...] Virus 07/09/2000,07/26/1999 Pneumococcal Conjugate Vacci ne, 20-valent ([id number]) 08/02/2022 Pneumococcal Conjugate Vacci ne, 7 Valent [...] emergent wound care referral to send to [facility] now since pt is in getting wound care [place] currently. [facility] is currently doing wound care on leg, drawing more labs (culture) , as well as giving IV abx. They have a [place] [facility] care appt tomorrow at 1 they plan on still attending, unless pt gets admitted. * Telephone Encounter - Doug Wharton MD - 03/25/2024 10:21 AM EDT Ordered signed after chart review. * Telephone Encounter - Luis Batista OSA - 03/25/2024 8:12 AM EDT Pt's son calling stating pt was seen at [facility] ER on Friday 03/23. Pt's son states pt had a fall andpt injured his L leg and needs wound care at home. His leg has stitches and large open wounds that need dressed. Pt is on blood thinners. Pt's son is requesting a home health referral for wound care from [facility]. Pt needs referral as soon as possible pt's wound dressings need changed today 03/25. Please call pt's son at [phone]. documented in this encounter Plan of Treatment Upcoming Encounters Date Type Department Care Team (Late st Contact Info) Description 04/09/2024 8:30 AM EDT Office Visit Cardiology, [facility] [address] [place] [address] Ian Denny MD [address] [place] [address] 08/16/2024 11:30 AM EST Office Visit [facility]ology/[facility] [address] [facility] [address] Meghan Cristina CRNP [address] [place] [address] [place] [address] Health Maintenance Due Date [...]
--- NOTE | 2024-03-26 07:32 | Pharmacy Report ---
Pharmacy PK ABX Note - Date of Service March 26, 2024 - Assessment and Plan Assessment * 78 year old M receiving ceftriaxone and vancomycin for treatment of b/l LE cellulitis (tendon, adipose, and muscle exposure in some areas). * PMH: chronic LLE wounds w delayed healing. Hx coag negative Staph from L leg culture - no sensitivities performed. * Pertinent current microbiologic data includes: R leg surface wound culture and blood cultures x2 pending Plan Vancomycin * Loading dose: 2000 mg IV x 1 * Maintenance dose: 1000 mg IV every 12 hours * Regimen is predicted to achieve target AUC/FRANCISCA of 400-600 mg/L.hr * Random level ordered for 03/27 AM Pharmacy will continue to follow and will adjust dose/frequency as necessary. Thank you. Pharmacy has transitioned to AUC monitoring for vancomycin. AUC/FRANCISCA is the preferred PK/PD target and is associated with decreased risk of nephrotoxicity compared to traditional trough targets.
[2024-03-26 07:40] LABS: Hematocrit (blood only) 35.2 % (42.0-52.0); Hemoglobin 11.7 g/dl (14.0-18.0); Mean Corpuscular Hemoglobin 33.8 pg (25.0-34.0); Mean Corpuscular Hgb Conc 33.2 g/dL (32.0-36.0); Mean Corpuscular Volume 101.7 fL (80.0-100.0); Platelet Count 139 K/uL (130-400); RDW Coefficient of Variation 15.3 % (11.5-14.5); RDW Standard Deviation 57.5 fL (36.4-46.3); Red Blood Count 3.46 M/uL (4.70-6.10); White Blood Count 12.02 K/ul (4.8-10.8)
[2024-03-26 08:01] LABS: Estimated Average Glucose 169 mg/dl; Hemoglobin A1C 7.5 % (4.5-5.6)
[2024-03-26 08:02] LABS: BUN Creatinine Ratio 32.2 (10-20); Calcium 9.1 mg/dl (8.6-10.3); Creatinine Clr Calc Pharmacy 65.5 ml/min; Est GFR (African American) 94.5 ml/min; Est GFR (Non-African American) 81.5 ml/min; Magnesium 2.5 mg/dl (1.7-2.4); Phosphorus 3.4 mg/dl (2.5-4.9); Potassium 4.7 mmol/L (3.5-5.1)
[2024-03-26] MEDS: FUROSEMIDE 40 MG TAB PO SCH (08:09)
[2024-03-26] MEDS: PANTOprazole 40 MG TAB PO SCH (08:09)
[2024-03-26] MEDS: FINASTERIDE 5 MG TAB PO SCH (08:10)
[2024-03-26] MEDS: CYANOCOBALAMIN (B-12) 500 MCG TABLET PO SCH (08:10)
[2024-03-26] MEDS: SPIRONOLACTONE 25 MG TAB PO SCH (08:10)
[2024-03-26] MEDS: ROSUVASTATIN CALCIUM 20 MG TAB PO SCH (08:10)
[2024-03-26] MEDS: CHOLECALCIFEROL 25 MCG (1000 UNITS) TAB PO SCH (08:10)
[2024-03-26] MEDS: VANCOMYCIN HCL 1,000 MG in SODIUM CHLORIDE 0.9% 250 ML IV SCH (08:14)
--- NOTE | 2024-03-26 08:47 | Orthopedic Consultation ---
Date of Consultation March 26, 2024 Assessment & Plan (1) Multiple skin tears: Patient is an 78-year-old male who had fall steps over the weekend sustained abrasions to the left anterior tibia from his anterior flexion crease measuring approximate 4 to 5 cm extending north post tibia approximately 15 cm becoming narrow 2 x 2 cm more proximally some areas of partial-thickness some areas of deeper more full-thickness abrasion with some superficial surrounding cellulitis would recommend wound care for this possibly even a plastic evaluation at some point for skin graft right leg has 2 areas of measuring 1.5 cm on the lower end of the anterior distal tibia with abrasion and cellulitis would continue with IV vancomycin currently wound care evaluation possible plastic evaluation at some point pending his healing and granulation thank you consult dictated by Dimas History of Present Illness Attending Physician: Sharad Bess MD History of Present Illness Patient is an 78-year-old male who had fall steps over the weekend sustained abrasions to the left anterior tibia Allergies Allergy/AdvReac Type Severity Reaction Status Date / Time No Known Allergies Allergy Verified 03/25/24 15:03 Home Medications Medication Instructions Recorded Confirmed Type finasteride 5 mg tablet 5 mg PO DAILY 04/25/20 03/25/24 History gabapentin 300 mg capsule 300 mg PO BID 04/25/20 03/25/24 History prednisone 5 mg tablet 5 mg PO BID 04/25/20 03/25/24 History spironolactone 25 mg tablet 25 mg PO DAILY 04/25/20 03/25/24 History cholecalciferol (vitamin D3) 25 50 mcg PO DAILY 07/30/20 03/25/24 History mcg (1,000 unit) tablet (Vitamin D3) apixaban 5 mg tablet 5 mg PO BID 12/31/22 03/25/24 History pantoprazole 40 mg tablet,delayed 40 mg PO DAILY 12/31/22 03/25/24 History release cyanocobalamin (vitamin B-12) 1,000 mcg PO DAILY 01/31/24 03/25/24 History 1,000 mcg tablet (Vitamin B-12) fluticasone 500 mcg-salmeterol 50 1 inh inhalation BID 01/31/24 03/25/24 History mcg/dose blistr powdr for inhalation (Wixela Inhub) furosemide 40 mg tablet 40 mg PO QAM #30 tabs 02/08/24 03/25/24 Rx metoprolol succinate 50 mg 50 mg PO BID #60 tabs 02/08/24 03/25/24 Rx tablet,extended release 24 hr rosuvastatin 20 mg tablet 20 mg PO DAILY 03/25/24 03/25/24 History Patient History Medical History (Updated 03/25/24 @ 18:41 by Balwinder Moralez DO) BPH (benign prostatic hyperplasia) Ascending aorta enlargement Surgical History History of thoracotomy H/O inguinal hernia repair Family History Father Heart disease Social History Smoking Status: Former smoker Tobacco Type: Cigarettes Cigarettes Per Day: 1 PPD; Second Hand Exposure: No; Do You Dip or Chew Tobacco: Yes; Tobacco Cessation Education Requested by Patient: No Hx Alcohol Use: No Hx Substance Use: No Preferred Language: Hebrew Communication Ability: Effective Wrapping Machine Helper Required: No Beliefs That Will Affect Care: None Current Living Situation: Alone Current Living Situation Comment: Lives alone, son lives in close proximity Other Information That Helps Us Care for You: No Feels Safe at Home: Yes Safety Concerns: Feels Safe At This Time Assistive Devices: Cane, Denture - Upper, Denture - Lower and Walker Physical Exam Physical Exam: Vital Signs Temp Pulse Pulse Pulse Pulse Resp BP 03/26/24 07:58 65 03/26/24 07:35 36.5 C 65 20 03/26/24 03:53 36.6 C 78 20 03/25/24 23:57 66 03/25/24 23:45 36.5 C 66 18 03/25/24 20:31 77 18 03/25/24 19:00 03/25/24 19:00 70 16 03/25/24 18:42 75 19 03/25/24 18:33 76 16 03/25/24 18:17 74 18 03/25/24 18:06 61 03/25/24 17:51 67 03/25/24 17:45 57 L 03/25/24 17:36 63 03/25/24 17:00 56 L 03/25/24 16:54 61 03/25/24 16:27 63 16 03/25/24 16:06 65 03/25/24 15:45 68 17 03/25/24 15:22 127/71 03/25/24 15:15 63 12 03/25/24 15:12 72 20 03/25/24 15:00 63 16 03/25/24 14:51 71 14 03/25/24 14:48 72 19 03/25/24 14:40 67 19 03/25/24 14:39 67 18 122/81 03/25/24 14:00 65 20 122/77 03/25/24 13:05 64 20 03/25/24 12:25 57 L 03/25/24 11:38 65 19 BP BP Pulse Ox Pulse Ox O2 Del Method O2 Del Method 03/26/24 07:58 03/26/24 07:35 140/85 97 Room Air 03/26/24 03:53 124/88 97 Room Air 03/25/24 23:57 03/25/24 23:45 127/81 98 Room Air 03/25/24 20:31 114/79 97 Room Air 03/25/24 19:00 96 Room Air 03/25/24 19:00 03/25/24 18:42 03/25/24 18:33 03/25/24 18:17 158/96 H 100 Room Air 03/25/24 18:06 03/25/24 17:51 03/25/24 17:45 03/25/24 17:36 03/25/24 17:00 03/25/24 16:54 03/25/24 16:27 03/25/24 16:06 03/25/24 15:45 03/25/24 15:22 03/25/24 15:15 03/25/24 15:12 03/25/24 15:00 99 03/25/24 14:51 03/25/24 14:48 98 03/25/24 14:40 122/81 99 Room Air 03/25/24 14:39 03/25/24 14:00 99 03/25/24 13:05 121/80 98 Room Air 03/25/24 12:25 03/25/24 11:38 115/70 98 Room Air Intake and Output 03/25/24 03/26/24 03/26/24 22:59 06:59 14:59 Intake Total 540 / 590 Balance 540 / 590 Intake: IV 540 / 590 Vancomycin HCl 2,000 mg In 540 / 540 Sodium Chlorid e 0.9% 500 ml @ 200 mls/hr IV NOW ONE Rx#: [id number] Oral 0 / 0 Other: # Unmeasured Voi ds 3 Weight 78.7 kg Weight Measureme nt Method Built in [facility] Musculoskeletal: abrasions to the left anterior tibia from his anterior flexion crease measuring approximate 4 to 5 cm extending north post tibia approximately 15 cm becoming narrow 2 x 2 cm more proximally some areas of partial-thickness some areas of deeper more full-thickness abrasion with some superficial surrounding cellulitis Results & Data Vital Signs (Past 12 Hours) Vital Signs Temp Pulse Pulse Pulse Pulse Resp BP 03/26/24 07:58 65 03/26/24 07:35 36.5 C 65 20 140/85 03/26/24 03:53 36.6 C 78 20 03/25/24 23:57 66 03/25/24 23:45 36.5 C 66 18 BP Pulse Ox O2 Del Method 03/26/24 07:58 03/26/24 07:35 97 Room Air 03/26/24 03:53 124/88 97 Room Air 03/25/24 23:57 03/25/24 23:45 127/81 98 Room Air
[2024-03-26] MEDS: cefTRIAXone SODIUM 2,000 MG/50 ML BAG IV SCH (11:46)
--- NOTE | 2024-03-26 14:51 | Hospitalist Progress Note ---
Date of Service March 26, 2024 Assessment & Plan (1) Bilateral cellulitis of lower leg: (2) Rheumatoid arthritis: (3) COPD (chronic obstructive pulmonary disease): (4) Hx of supraventricular tachycardia: (5) BPH (benign prostatic hyperplasia): Plan 78 year old male that presents to the ED as recommended by the wound clinic. He has history of chronic left lower extremity wounds with previous wound cultures that develop coag negative staph patient was standing at the top of his stairs and he fell onto his knees causing skin tears to open. Patient has historically chronic wound and delayed wound healing in his left lower leg. In 12/2022 patient had wound culture grow coag negative staph. He completed a course of doxycycline at that time. Leukocytosis 12.73 neutrophil 10.04, hemoglobin 11.9, procalcitonin negative, hyponatremic 131; seems to be chronic based on historic values. Glucose level 228. Takes Eliquis twice daily for A-fib and suspect Eliquis plus prednisone causing skin to be frail and thin. Patient does report bruising quite easily. Hgb 11.9; baseline 10-11. Entire LLE anterior salgado with sloughing of skin and bottom of salgado and at the top of his ankle with tendon exposure and adipose tissue. Muscle exposed and some area. RLE with 2 dime sized open wounds that appear to be healing. Admit for bilateral lower extremity cellulitis and delayed wound healing in the setting of chronic anticoagulation and steroid use. Patient does not meet sepsis criteria at this time. Will continue ceftriaxone and add vancomycin for MRSA coverage, obtain blood cultures, WOCN consult, orthopedics consult placed given tendon exposure. Bilateral cellulitis of lower leg Multiple skin tears/Leg Wounds Secondary to fall Nasal MRSA negative --Blood, wound cultures pending Empirically on vancomycin, Rocephin Continue wound care Appreciate orthopedics input May need plastic surgery evaluation as per Ortho DM II HbA1c 7.5 Diet controlled Continue insulin while hospitalized Monitor BGs Atrial fibrillation: H/O SVT: Chronic Continue metoprolol, Eliquis HFpEF: Continue home diuretics Currently no signs of exacerbation Monitor volume status RA: On chronic prednisone Also on gabapentin COPD: Chronic No signs of exacerbation Continue home inhalers BPH: Continue Proscar HLD: Continue statin GERD: Continue PPI DVT Px: Eliquis Code Status: Full Code Admission and Anticipated Discharge Date Admission Date: March 25, 2024 Subjective Patient is seen and examined at bedside States having intermittent left lower extremity pain Otherwise no complaints Denies any chest pain, dyspnea, dizziness, nausea, vomiting, abdominal pain Blood, wound cultures pending Review of Systems Review of Systems: All systems reviewed & are unremarkable except as noted in Subjective Physical Exam Physical Exam: Physical Exam: Vitals signs as noted above General Appearance:Moderately built and nourished, no apparent distress, Elderly Head: normocephalic, Atraumatic Eyes: normal inspection, EOMI Neck: supple, Trachea midline Respiratory/Chest: Normal breath sounds, CTA, No accessory muscle use Cardiovascular: S1, S2, +murmur Abdomen/GI:Soft, Non tender, Bowel sounds present Extremities/Musculoskeletal:normal inspection, B/L lower extremity wounds in dressing, trace edema Neurologic/Psych:AAOX3, grossly no focal neurological deficits Skin: normal color, warm Results & Data Results & Data Vital Signs (Past 12 Hours) Vital Signs Temp Pulse Pulse Pulse Resp BP BP 03/26/24 11:00 36.4 C L 63 18 125/78 03/26/24 07:58 65 03/26/24 07:35 36.5 C 65 20 140/85 03/26/24 03:53 36.6 C 78 20 124/88 Pulse Ox O2 Del Method 03/26/24 11:00 96 Room Air 03/26/24 07:58 03/26/24 07:35 97 Room Air 03/26/24 03:53 97 Room Air Laboratory Results Short CBC 03/26/24 Range/Units 06:05 WBC 12.02 H (4.8-10.8) K/ul Hgb 11.7 L (14.0-18.0) g/dl Hct 35.2 L (42.0-52.0) % Plt Count 139 (130-400) K/uL BMP 03/26/24 06:05 Sodium 135 L Potassium 4.7 Chloride 104 Carbon Dioxide 22 BUN 28 H Creatinine 0.87 Glucose 123 H Calcium 9.1
[2024-03-26] MEDS: oxyCODONE HCL IR 5 MG TAB (IMMEDIATE RELEASE) PO PRN (16:21)
[2024-03-27 07:27] LABS: Hematocrit (blood only) 35.8 % (42.0-52.0); Mean Corpuscular Hemoglobin 33.5 pg (25.0-34.0); Mean Corpuscular Hgb Conc 33.5 g/dL (32.0-36.0); Mean Platelet Volume 12.5 fL (9.4-12.4); Platelet Count 130 K/uL (130-400); RDW Coefficient of Variation 15.1 % (11.5-14.5); RDW Standard Deviation 55.9 fL (36.4-46.3); Red Blood Count 3.58 M/uL (4.70-6.10); White Blood Count 12.28 K/ul (4.8-10.8)
[2024-03-27 08:03] LABS: BUN Creatinine Ratio 37.4 (10-20); Creatinine Clr Calc Pharmacy 62.6 ml/min; Est GFR (African American) 91.9 ml/min; Est GFR (Non-African American) 79.3 ml/min; Potassium 4.3 mmol/L (3.5-5.1)
--- NOTE | 2024-03-27 08:37 | Pharmacy Report ---
Pharmacy PK ABX Note - Date of Service March 27, 2024 - Assessment and Plan Assessment * 78 year old M receiving ceftriaxone and vancomycin for treatment of b/l LE cellulitis (tendon, adipose, and muscle exposure in some areas). * PMH: chronic LLE wounds w delayed healing. Hx coag negative Staph from L leg culture - no sensitivities performed. * Pertinent current microbiologic data includes: R leg surface wound culture and blood cultures x2 pending * MRSA nasal swab negative Plan Vancomycin * Current regimen: 1000 mg IV every 12 hours * Random level obtained 03/27/24 resulted as 13.1 mcg/mL. This is predicted to achieve target AUC/FRANCISCA of 400-600 mg/L.hr * Predicted AUC at steady state: 580 mg/L.hr * Continue 1000 mg IV every 12 hours * Will repeat level in the next 48-72 hours if therapy is continued and/or change in patient clinical status Pharmacy will continue to follow and will adjust dose/frequency as necessary. Thank you. Pharmacy has transitioned to AUC monitoring for vancomycin. AUC/FRANCISCA is the preferred PK/PD target and is associated with decreased risk of nephrotoxicity compared to traditional trough targets.
[2024-03-27] MEDS: VANCOMYCIN LEVEL ONE (08:54)
--- NOTE | 2024-03-27 18:47 | Hospitalist Progress Note ---
Date of Service March 27, 2024 Assessment & Plan (1) Bilateral cellulitis of lower leg: (2) Rheumatoid arthritis: (3) COPD (chronic obstructive pulmonary disease): (4) Hx of supraventricular tachycardia: (5) BPH (benign prostatic hyperplasia): Plan Mr. Peña is an 78 year old male with history of A-fib, history of SVT, AAA, rheumatoid arthritis, HFpEF, HLD, and BPH that is admitted for management of bilateral leg wounds per the recommendation of wound care. He has history of chronic left lower extremity wounds with previous wound cultures CoNS. Patient was standing at the top of his stairs and he fell onto his knees causing notable wounds to BLE. On admission, Leukocytosis 12.73 neutrophil 10.04, hemoglobin 11.9, procalcitonin negative, hyponatremic 131; seems to be chronic based on historic values. Glucose level 228. Remains on broad antibiotics at this time. Ortho consulted, recommended plastic evaluation. Discussed on phone with Dr. Peralta who will review, however, not in office this week for in house consultation. PT/OT #Bilateral cellulitis of lower leg #Multiple skin tears/Leg Wounds Secondary to fall Nasal MRSA negative --Blood, wound cultures pending Empirically on vancomycin, Rocephin Continue wound care Appreciate orthopedics input Discussed over phone with plastics, likely op follow up after monitoring by OP wound clinic PT/OT #Chronic macrocytic anemia -b12 folate in am #DM II HbA1c 7.5 Diet controlled Continue insulin while hospitalized Monitor BGs #Atrial fibrillation: H/O SVT: Chronic Continue metoprolol, Eliquis #HFpEF: Continue home diuretics Currently no signs of exacerbation Monitor volume status #RA: On chronic prednisone Also on gabapentin #COPD: Chronic No signs of exacerbation Continue home inhalers #BPH: Continue Proscar #HLD: Continue statin #GERD: Continue PPI DVT Px: Eliquis Code Status: Full Code Admission and Anticipated Discharge Date Admission Date: March 25, 2024 Subjective Patient reports mild pain while ambulating given skin tears, but denies any nausea, vomiting, chest pain, or other acute concerns Physical Exam Constitutional: WD/WN, vitals as above Respiratory: normal respiratory effort, lungs clear to auscultation Cardiovascular: RRR, no murmur, no edema Gastrointestinal (Abdomen): normal bowel sounds, soft, nontender, no hepatosplenomegaly Skin: left lower extremity with kerlex bandage CDI, multiple bandages on RLE Results & Data Results & Data Vital Signs (Past 12 Hours) Vital Signs Temp Pulse Pulse Resp BP Pulse Ox O2 Del Method 03/27/24 16:17 74 03/27/24 15:06 36.8 C 79 18 137/91 98 Room Air 03/27/24 11:25 36.4 C L 73 18 125/80 95 Room Air 03/27/24 07:44 36.4 C L 66 18 156/95 H 97 Room Air 03/27/24 07:22 65 Laboratory Results Short CBC 03/27/24 Range/Units 07:03 WBC 12.28 H (4.8-10.8) K/ul Hgb 12.0 L (14.0-18.0) g/dl Hct 35.8 L (42.0-52.0) % Plt Count 130 (130-400) K/uL BMP 03/27/24 07:03 Sodium 134 L Potassium 4.3 Chloride 102 Carbon Dioxide 23 BUN 34 H Creatinine 0.91 Glucose 131 H Calcium 9.0 Medications Administered Home Medications Medication Instructions Recorded Confirmed Last Taken finasteride 5 mg tablet 5 mg PO DAILY 04/25/20 03/25/24 01/31/24 gabapentin 300 mg capsule 300 mg PO BID 04/25/20 03/25/24 01/31/24 prednisone 5 mg tablet 5 mg PO BID 04/25/20 03/25/24 01/31/24 spironolactone 25 mg tablet 25 mg PO DAILY 04/25/20 03/25/24 01/31/24 cholecalciferol (vitamin D3) 25 50 mcg PO DAILY 07/30/20 03/25/24 01/31/24 mcg (1,000 unit) tablet (Vitamin D3) apixaban 5 mg tablet 5 mg PO BID 12/31/22 03/25/24 01/31/24 pantoprazole 40 mg tablet,delayed 40 mg PO DAILY 12/31/22 03/25/24 01/31/24 release cyanocobalamin (vitamin B-12) 1,000 mcg PO DAILY 01/31/24 03/25/24 01/31/24 1,000 mcg tablet (Vitamin B-12) fluticasone 500 mcg-salmeterol 50 1 inh inhalation BID 01/31/24 03/25/24 01/31/24 mcg/dose blistr powdr for inhalation (Dayami Inhub) furosemide 40 mg tablet 40 mg PO QAM #30 tabs 02/08/24 03/25/24 Unknown metoprolol succinate 50 mg 50 mg PO BID #60 tabs 02/08/24 03/25/24 Unknown tablet,extended release 24 hr rosuvastatin 20 mg tablet 20 mg PO DAILY 03/25/24 03/25/24 Unknown Active Medications Generic Name Dose Route Start Last Admin Trade Name Freq PRN Reason Stop Dose Admin Acetaminophen 650 mg 03/25/24 15:05 03/27/24 14:27 Acetaminophen 325 Mg Tab PO 04/24/24 15:04 650 mg Q4H PRN Administration Pain or Fever Apixaban 5 mg 03/25/24 21:00 03/27/24 08:49 Apixaban 5 Mg Tablet PO 04/24/24 20:59 5 mg BID STEPHEN Administration Cyanocobalamin 1,000 mcg 03/26/24 09:00 03/27/24 08:49 Cyanocobalamin (B-12) 500 Mcg Tablet PO 04/25/24 08:59 1,000 mcg DAILY STEPHEN Administration Finasteride 5 mg 03/26/24 09:00 03/27/24 08:50 Finasteride 5 Mg Tab PO 04/25/24 08:59 5 mg DAILY STEPHEN Administration Fluticasone/Vilanterol 1 puffs 03/25/24 20:15 03/27/24 08:51 Fluticasone/Vilanterol 100/25mcg 14 Puffs/Inhaler INH 04/24/24 20:14 1 puffs DAILY STEPHEN Administration Protocol Furosemide 40 mg 03/26/24 09:00 03/27/24 08:50 Furosemide 40 Mg Tab PO 04/25/24 08:59 40 mg QAM STEPHEN Administration Gabapentin 300 mg 03/25/24 21:00 03/27/24 08:49 Gabapentin 300 Mg Cap PO 04/24/24 20:59 300 mg BID STEPHEN Administration Ceftriaxone Sodium 2,000 mg in 50 mls @ 100 mls/hr 03/26/24 11:00 03/27/24 12:25 Rocephin IV 04/02/24 10:59 Infused Q24H STEPHEN Infusion Vancomycin HCl 1,000 mg/ 270 mls @ 200 mls/hr 03/26/24 09:00 03/27/24 11:23 Sodium Chloride IV 04/02/24 08:59 Infused Q12H STEPHEN Infusion Metoprolol Succinate 50 mg 03/25/24 21:00 03/27/24 08:49 Metoprolol Succ 50mg Ext Rel Tab PO 04/24/24 20:59 50 mg BID STEPHEN Administration Oxycodone HCl 5 mg 03/26/24 00:43 03/26/24 16:21 Oxycodone Hcl Ir 5 Mg Tab (Immediate Release) PO 04/09/24 00:42 5 mg Q4H PRN Administration Pain Pantoprazole Sodium 40 mg 03/26/24 09:00 03/27/24 08:51 Pantoprazole 40 Mg Tab PO 04/25/24 08:59 40 mg DAILY STEPHEN Administration Prednisone 5 mg 03/25/24 21:00 03/27/24 08:49 Prednisone 5 Mg Tab PO 04/24/24 20:59 5 mg BID STEPHEN Administration Rosuvastatin Calcium 20 mg 03/26/24 09:00 03/27/24 08:51 Rosuvastatin Calcium 20 Mg Tab PO 04/25/24 08:59 20 mg DAILY STEPHEN Administration Spironolactone 25 mg 03/26/24 09:00 03/27/24 08:50 Spironolactone 25 Mg Tab PO 04/25/24 08:59 25 mg DAILY STEPHEN Administration Vitamin D 50 mcg 03/26/24 09:00 03/27/24 08:50 Cholecalciferol 25 Mcg (1000 Units) Tab PO 04/25/24 08:59 50 mcg DAILY STEPHEN Administration
[2024-03-28 07:07] LABS: Hematocrit (blood only) 34.3 % (42.0-52.0); Hemoglobin 11.5 g/dl (14.0-18.0); Mean Corpuscular Hgb Conc 33.5 g/dL (32.0-36.0); Mean Corpuscular Volume 101.5 fL (80.0-100.0); Mean Platelet Volume 12.6 fL (9.4-12.4); Platelet Count 128 K/uL (130-400); RDW Coefficient of Variation 15.3 % (11.5-14.5); RDW Standard Deviation 56.6 fL (36.4-46.3); Red Blood Count 3.38 M/uL (4.70-6.10); White Blood Count 8.85 K/ul (4.8-10.8)
[2024-03-28 07:31] LABS: Calcium 9.3 mg/dl (8.6-10.3); Est GFR (Non-African American) 70.8 ml/min; Potassium 5.1 mmol/L (3.5-5.1)
[2024-03-28 07:44] VITALS: BP 113/73; RESP 18; TEMP 98.2; O2SAT 98
[2024-03-28 12:15] VITALS: PULSE 68
--- NOTE | 2024-03-28 14:28 | Discharge Summary ---
Discharge Summary Date of Service March 28, 2024 Principal Dx & Hospital Course #1 = Principal Diagnosis (1) Bilateral cellulitis of lower leg: (2) Rheumatoid arthritis: (3) COPD (chronic obstructive pulmonary disease): (4) Hx of supraventricular tachycardia: (5) BPH (benign prostatic hyperplasia): Plan Mr. Peña is an 78 year old male with history of A-fib, history of SVT, AAA, rheumatoid arthritis, HFpEF, HLD, and BPH that is admitted for management of bilateral leg wounds per the recommendation of wound care. He has history of chronic left lower extremity wounds with previous wound cultures CoNS. Patient was standing at the top of his stairs and he fell onto his knees causing notable wounds to BLE. On admission, Leukocytosis 12.73 neutrophil 10.04, hemoglobin 11.9, procalcitonin negative, hyponatremic 131; seems to be chronic based on historic values. Glucose level 228. Remains on broad antibiotics at this time. Ortho consulted, recommended plastic evaluation. Discussed on phone with Dr. Peralta who will review, however, not in office this week for in house consultation. Plan determined that patient would establish with outpatient wound care and monitor healing for OP referral to plastics. Patient declined rehab or SNF for wound care. Patient discharged with HH for wound care, PT/OT #Bilateral cellulitis of lower leg #Multiple skin tears/Leg Wounds Secondary to fall Nasal MRSA negative --Blood, wound cultures pending Empirically on vancomycin, Rocephin Continue wound care Appreciate orthopedics input Discussed over phone with plastics: plan for OP follow up HHPT/OT and wound care #Chronic macrocytic anemia stable #DM II HbA1c 7.5 Diet controlled Continue insulin while hospitalized Monitor BGs #Atrial fibrillation: H/O SVT: Chronic Continue metoprolol, Eliquis #HFpEF: Continue home diuretics Currently no signs of exacerbation Monitor volume status #RA: On chronic prednisone Also on gabapentin #COPD: Chronic No signs of exacerbation Continue home inhalers #BPH: Continue Proscar #HLD: Continue statin #GERD: Continue PPI On day of discharge,patient reported eagerness for discharge. He reported pain with ambulation over lower extremity. Afebrile and HDS on discharge. Clean dressing in place. Notes For Next Care Provider Will need Op plastic evaluation Medication Changes From Visit Keflex 500mg TID x 5 days for 7 days total abx Admission HPI Per Admitting Provider Mr. Peña is an 78 year old male that presents to the ED as recommended by the wound clin He has history of chronic left lower extremity wounds with previous wound cultures that develop coag negative staph patient was standing at the top of his stairs and he fell onto his knees causing skin tears to open. Patient has historically chronic wound and delayed wound healing in his left lower leg. In 12/2022 patient had wound culture grow coag negative staph. He completed a course of doxycycline at that time. And followed up with wound clinic. In the ED leukocytosis 12.73 neutrophil 10.04, hemoglobin 11.9, procalcitonin negative, hyponatremic 131; seems to be chronic based on historic values. Glucose level 228. Most recent echocardiogram 01/30 EF 55 to 60% with normal LV wall motion. Mild MR. Additional past medical history includes A-fib, history of SVT, AAA, rheumatoid arthritis, HFpEF, HLD, and BPH. Patient reports chewing snuff without tobacco smoking, no alcohol or recreational drug use. Patient does take Eliquis twice daily for A-fib and suspect Eliquis plus prednisone causing skin to be frail and thin. Patient does report bruising quite easily. Hgb 11.9; baseline 10-11. No overt signs of bleeding and wound is oozing rather than overtly bleeding. Patient denies headache, visual or auditory changes, dizziness, fever or chills, chest pain, palpitations, shortness of breath, N/V/D, abdominal pain or tenderness, other falls. Patient sitting in his hospital bed in no apparent distress. Patient's wounds were just received new dressings. Undressed for visualization and entire LLE anterior salgado with sloughing of skin and bottom of salgado and at the top of his ankle with tendon exposure and adipose tissue. Muscle exposed and some area. RLE with 2 dime sized open wounds that appear to be healing. Patient will be admitted for further evaluation management of bilateral lower extremity cellulitis and delayed wound healing in the setting of chronic anticoagulation and steroid use. Patient does not meet sepsis criteria at this time. Will continue ceftriaxone and add vancomycin for MRSA coverage, obtain blood cultures, WOCN consult, orthopedics consult placed. Will check A1C and fasting glucose in AM. Discharge Exam Constitutional WD/WN, vitals as above Respiratory normal respiratory effort, lungs clear to auscultation Cardiovascular RRR, no murmur, no edema Skin multiple dressings in place on LLE and RLE, no signs of superimposed infection Updated Medication List Medication Instructions Recorded Confirmed Type finasteride 5 mg tablet 5 mg PO DAILY 04/25/20 03/25/24 History gabapentin 300 mg capsule 300 mg PO BID 04/25/20 03/25/24 History prednisone 5 mg tablet 5 mg PO BID 04/25/20 03/25/24 History spironolactone 25 mg tablet 25 mg PO DAILY 04/25/20 03/25/24 History cholecalciferol (vitamin D3) 25 50 mcg PO DAILY 07/30/20 03/25/24 History mcg (1,000 unit) tablet (Vitamin D3) apixaban 5 mg tablet 5 mg PO BID 12/31/22 03/25/24 History pantoprazole 40 mg tablet,delayed 40 mg PO DAILY 12/31/22 03/25/24 History release cyanocobalamin (vitamin B-12) 1,000 mcg PO DAILY 01/31/24 03/25/24 History 1,000 mcg tablet (Vitamin B-12) fluticasone 500 mcg-salmeterol 50 1 inh inhalation BID 01/31/24 03/25/24 History mcg/dose blistr powdr for inhalation ([employer] [employer]) furosemide 40 mg tablet 40 mg PO QAM #30 tabs 02/08/24 03/25/24 Rx metoprolol succinate 50 mg 50 mg PO BID #60 tabs 02/08/24 03/25/24 Rx tablet,extended release 24 hr rosuvastatin 20 mg tablet 20 mg PO DAILY 03/25/24 03/25/24 History cephalexin 500 mg tablet 500 mg PO TID 5 days #15 tabs 03/28/24 Rx oxycodone 5 mg tablet 5 mg PO Q4H PRN pain #30 tabs 03/28/24 Rx Hospital Stay Data Consultations 03/25/24 13:24 ED Decision to Admit Stat 03/25/24 15:53 Consult Orthopedic Surgery Routine Pending Results Patient Have Any Pending Studies at Discharge: No Discharge Instructions Given to Patient (Per Discharging Provider) You were admitted for evaluation of avulsion of left anterior leg and multiple skin tears Your wound cultures were negative. You will need to follow up with wound care to monitor for healing and refer for Plastic surgery evalaution if a graft is needed based upon your healing. Please continue Keflex 500mg three times a day until course is complete. Your n ext dose will tomorrow morning at 6am, 2pm, 10pm. Please continue until course is complete. Please take a probiotic to help prevent stomach upset/diarrhea. please resume your home medications as previously prescribed. Total Time Total Time Spent Total Time Spent (In Minutes): 35
[2024-03-28 18:24] LABS: Folate (Folic Acid),Ser orPlas 13.04 ng/ml (>5.38)
== END 2024-03-28 13:41 | disposition home health service (06) | DRG 603 ==
LOC: ED 11:07 → SUATTDRO 15:05 → EDINP 15:05 → 2N 18:28
DX: I47.10 Supraventricular tachycardia, unspecified; E11.65 Type 2 diabetes mellitus with hyperglycemia; W10.8XXA Fall (on) (from) other stairs and steps, initial encounter; I50.32 Chronic diastolic (congestive) heart failure; E87.1 Hypo-osmolality and hyponatremia; I48.91 Unspecified atrial fibrillation; Y92.018 Other place in single-family (private) house as the place of occurrence of the external cause; D53.9 Nutritional anemia, unspecified; J44.9 Chronic obstructive pulmonary disease, unspecified; E78.5 Hyperlipidemia, unspecified; L03.116 Cellulitis of left lower limb; Z87.891 Personal history of nicotine dependence; S81.811A Laceration without foreign body, right lower leg, initial encounter; D69.6 Thrombocytopenia, unspecified; Z79.01 Long term (current) use of anticoagulants; K21.9 Gastro-esophageal reflux disease without esophagitis; M06.9 Rheumatoid arthritis, unspecified; N40.0 Benign prostatic hyperplasia without lower urinary tract symptoms; S81.812A Laceration without foreign body, left lower leg, initial encounter; L03.115 Cellulitis of right lower limb

== ENCOUNTER 2024-05-10 11:56 | Inpatient (IN) ==
--- NOTE | 2024-05-10 12:21 | Emergency Department Note ---
Impression & Plan Shortness of breath, Hemoptysis, Leukocytosis, Elevated lactic acid level, Pulmonary edema, Acute exacerbation of CHF (congestive heart failure), Rhinovirus infection ED Provider Note HISTORY OF PRESENT ILLNESS: Patient is an 78-year-old male presenting with shortness of breath and hemoptysis. Patient reports that he woke up this morning and felt very short of breath and started coughing and coughed up bright red blood. He reports there were some clots in his sputum. He is on Eliquis for history of A-fib. Patient had dressing changes to his left lower extremity today by home health and the home health nurse had expressed concern that the patient's lungs sounded "wet." He was tachycardic to reportedly 146 bpm with home health nurse and they were referred to the emergency department for further evaluation. Patient denies any history of cardiac stents. Denies any DVT or PE history. Patient denies any lower extremity edema. Reports feeling short of breath this morning. Reports he had sinus congestion for the last few days. ROS: as above PHYSICAL EXAM: Constitutional: Patient appears in no acute distress. HENT: Head: Normocephalic and atraumatic. Eyes: EOMI, PERRL Mouth/Throat: Mucous membranes moist. Neck: Trachea midline. Neck supple. Cardiovascular: Tachycardic with irregularly irregular rhythm. No murmurs, rubs or gallops. Intact distal pulses. Pulmonary/Chest: No respiratory distress. Breath sounds clear and equal bilaterally. No wheezes or rales. Abdominal: Abdomen soft, no tenderness, rebound or guarding. Musculoskeletal: No edema, tenderness or deformity noted. Skin: Warm and dry. No rash, erythema, pallor or cyanosis Psychiatric: Appropriate mood and affect for situation. Neurological: Alert and keenly responsive. CN II-XII grossly intact, moving all extremities equally and fully. MDM: - Vitals signs showed tachycardia. - History obtained via patient. History as above. - Chronic conditions affecting care: CODP; CHF; tachy-jairon syndrome - Differential diagnoses include, but are not limited to: Congestive heart failure; acute coronary syndrome; COPD/asthma exacerbation; pulmonary edema; pulmonary embolism; pneumonia; pneumothorax; viral syndrome - Order placed for continuous cardiac monitoring. At this time, monitor showed rate of 101 bpm with irregular rhythm, per my interpretation. - External medical records reviewed. Cardiology progress note dated 02/08/2024 was reviewed. Patient has a history of permanent A-fib. He is on Eliquis 5 mg twice daily for stroke prophylaxis. - EKG interpreted by myself showed atrial fibrillation. Rate 96 bpm. QT 330. No acute ischemic changes. - Laboratory workup interpreted by myself showed leukocytosis (WBC 16.92); chronic anemia (Hgb 12.1 - improved from 11.5 in March 2024); slight hyponatremia (Na 135); elevated anion gap (12); elevated BUN (37); normal troponin; elevated lactate (3.9); hyperglycemia (glucose 230); elevated BNP (278) - CXR showed mild pulmonary edema, per my interpretation. Radiology notes trace bilateral pleural effusions which have slightly progressed. - VBG grossly normal - Blood cultures obtained. - CT PE obtained, given patient's hemoptysis. CT PE negative for PE. - Empirically started on 2g IV rocephin. - Patient's sepsis fluid volume resuscitation based on ideal body weight is 2100 mL NS. Patient only given 500 cc NS, given his pulmonary edema on chest x-ray and history of heart failure. In addition, he has a reduced ejection fraction based on patient's echocardiogram from 02/02/2024 which showed an EF of 55 to 60%. - Viral respiratory panel positive for rhinovirus/enterovirus infection - Discussion was had with case specialist about patient's case and need for admission - Hospitalist consulted for admission - Patient admitted to [facility] for further evaluation and management. ASSESSMENT AND PLAN: Diagnosis: shortness of breath; hemoptysis; elevated lactic acid level; CHF exacerbation; pulmonary edema; rhinovirus infection Plan: Admit Past Med/Surg History Problem List (Updated 05/10/24 @ 14:48 by Aide Luo PA-C) Severe sepsis Rhinovirus infection (Acute) Acute exacerbation of CHF (congestive heart failure) (Acute) Pulmonary edema (Acute) Elevated lactic acid level (Acute) Leukocytosis (Acute) Hemoptysis (Acute) Shortness of breath (Acute) Traumatic open wound of right lower leg with delayed healing (Acute) Traumatic open wound of left lower leg with delayed healing (Acute) Avulsion of skin of left lower leg Thrombocytopenia (Acute) Multiple skin tears (Acute) History of CHF (congestive heart failure) (Acute) History of COPD (Acute) Bilateral edema of lower extremity (Acute) Bilateral cellulitis of lower leg (Acute) Acute on chronic heart failure with preserved ejection fraction (HFpEF) Bilateral cellulitis of lower leg Sepsis Vomiting (Acute) Pneumonia (Acute) Shortness of breath (Acute) Aspiration into airway (Acute) COPD exacerbation Tachycardia-bradycardia syndrome Sinus pause SOB (shortness of breath) (Acute) PAC (premature atrial contraction) (Acute) Chest pain (Acute) Hx of supraventricular tachycardia COPD (chronic obstructive pulmonary disease) Rheumatoid arthritis (Acute) Medical History Cellulitis Hx of peripheral neuropathy BPH (benign prostatic hyperplasia) Ascending aorta enlargement Surgical History History of thoracotomy H/O inguinal hernia repair Family History Father Heart disease Social History Smoking Status: Former smoker Tobacco Type: Cigarettes Cigarettes Per Day: 1 PPD; Second Hand Exposure: No; Do You Dip or Chew Tobacco: Yes; Hx Alcohol Use: No Hx Substance Use: No Preferred Language: Wolof Communication Ability: Effective Visual Impairment: Limited Hearing Ability: Hard of Hearing Electric Frying Pan Repairer Required: No Beliefs That Will Affect Care: None marital status: / Current Living Situation: Alone Current Living Situation Comment: Lives alone, son lives in close proximity current occupational status: retired How many Children do You have: 3 How many Children do You have Comment: All children live close and one son that lives closest is able to assist Feels Safe at Home: Yes Diet: regular during the past year weight has: remained stable Assistive Devices: Cane Allergies Allergies Allergy/AdvReac Type Severity Reaction Status Date / Time No Known Allergies Allergy Verified 05/10/24 14:55 Home Meds Home Medications Medication Instructions Recorded Confirmed finasteride 5 mg tablet 5 mg PO DAILY 04/25/20 05/10/24 gabapentin 300 mg capsule 300 mg PO BID 04/25/20 05/10/24 prednisone 5 mg tablet 5 mg PO BID 04/25/20 05/10/24 spironolactone 25 mg tablet 25 mg PO DAILY 04/25/20 05/10/24 cholecalciferol (vitamin D3) 25 50 mcg PO DAILY 07/30/20 05/10/24 mcg (1,000 unit) tablet (Vitamin D3) apixaban 5 mg tablet 5 mg PO BID 12/31/22 05/10/24 pantoprazole 40 mg tablet,delayed 40 mg PO DAILY 12/31/22 05/10/24 release cyanocobalamin (vitamin B-12) 1,000 mcg PO DAILY 01/31/24 05/10/24 1,000 mcg tablet (Vitamin B-12) fluticasone 500 mcg-salmeterol 50 1 inh inhalation BID 01/31/24 05/10/24 mcg/dose blistr powdr for inhalation (Wixela Inhub) rosuvastatin 20 mg tablet 20 mg PO DAILY 03/25/24 05/10/24 Previous Rx's Medication Instructions Recorded furosemide 40 mg tablet 40 mg PO QAM #30 tabs 02/08/24 metoprolol succinate 50 mg 50 mg PO BID #60 tabs 02/08/24 tablet,extended release 24 hr oxycodone 5 mg tablet 5 mg PO Q4H PRN pain #30 tabs 03/28/24 Results & Data (ED) Vital Signs Vital Signs - 24 hr 05/10/24 12:08 05/10/24 12:08 05/10/24 12:29 Temperature 36.4 C L Temperature Source Temporal Artery Scan Pulse Rate 105 H Pulse Rate [Apical] 98 H Pulse Rate from SpO2 Sensor Pulse Rhythm Regular Pulse Strength Normal Respiratory Rate 22 18 Respiratory Effort / Characteristics Non-Labored Spontaneous Respiratory Depth Normal Respiratory Pattern Regular Blood Pressure 112/73 Blood Pressure [Right Arm] 99/81 L Blood Pressure Mean 86 Blood Pressure Mean [Right Arm] 87 Blood Pressure Position Sitting Pulse Oximetry 95 95 Oxygen Delivery Method Room Air Room Air Room Air Sepsis Recent Fever Within 48 Hours No Sepsis New/Unexplained Change in Mental Status No Sepsis Action Taken by Nursing No Action Required 05/10/24 12:29 05/10/24 13:18 05/10/24 13:36 Temperature Temperature Source Pulse Rate 95 H 98 H Pulse Rate [Apical] Pulse Rate from SpO2 Sensor 94 H 91 H Pulse Rhythm Pulse Strength Respiratory Rate 23 19 Respiratory Effort / Characteristics Respiratory Depth Respiratory Pattern Blood Pressure 117/86 Blood Pressure [Right Arm] Blood Pressure Mean 96 Blood Pressure Mean [Right Arm] Blood Pressure Position Pulse Oximetry 93 94 Oxygen Delivery Method Room Air Sepsis Recent Fever Within 48 Hours Sepsis New/Unexplained Change in Mental Status Sepsis Action Taken by Nursing 05/10/24 13:57 05/10/24 14:07 05/10/24 14:33 Temperature Temperature Source Pulse Rate 93 H 96 H 94 H Pulse Rate [Apical] Pulse Rate from SpO2 Sensor 88 96 H Pulse Rhythm Pulse Strength Respiratory Rate 19 24 Respiratory Effort / Characteristics Respiratory Depth Respiratory Pattern Blood Pressure 126/84 126/80 Blood Pressure [Right Arm] Blood Pressure Mean 98 95 Blood Pressure Mean [Right Arm] Blood Pressure Position Pulse Oximetry 95 96 Oxygen Delivery Method Sepsis Recent Fever Within 48 Hours Sepsis New/Unexplained Change in Mental Status Sepsis Action Taken by Nursing Laboratory Data 05/10/24 12:25 05/10/24 12:25 Lab Results 05/10/24 05/10/24 05/10/24 Range/Units 12:20 12:25 14:39 WBC 16.92 H (4.8-10.8) K/ul RBC 3.49 L (4.70-6.10) M/uL Hgb 12.1 L (14.0-18.0) g/dl Hct 36.3 L (42.0-52.0) % MCV 104.0 H (80.0-100.0) fL MCH 34.7 H (25.0-34.0) pg MCHC 33.3 (32.0-36.0) g/dL RDW Std Deviation 62.6 H (36.4-46.3) fL RDW Coeff of Roxanna 16.6 H (11.5-14.5) % Plt Count 141 (130-400) K/uL MPV 12.5 H (9.4-12.4) fL Immature Gran % (Auto) 1.0 % Neut % (Auto) 82.0 % Lymph % (Auto) 7.7 % [place] % (Auto) 8.9 % Eos % (Auto) 0.2 % Baso % (Auto) 0.2 % Neut # (Auto) 13.88 H (1.40-6.50) K/uL Lymph # (Auto) 1.30 (1.20-3.40) K/uL [place] # (Auto) 1.51 H (0.11-0.59) K/uL Eos # (Auto) 0.03 (0.00-0.50) K/uL Baso # (Auto) 0.03 (0.00-0.20) K/uL Immature Gran # (Auto) 0.17 (0.01-0.20) K/uL PT 12.0 (9.0-12.0) Seconds INR 1.1 (0.9-1.1) VBG pH 7.41 (7.36-7.41) VBG pCO2 29 L (38-50) mmHg VBG pO2 53 mmHg VBG HCO3 18 mmol/L VBG O2 Saturation 84.9 % VBG Base Excess -5.2 mEq/L Sodium 135 L (136-145) mmol/L Potassium 4.6 (3.5-5.1) mmol/L Chloride 103 (98-107) mmol/L Carbon Dioxide 20 L (21-32) mmol/L Anion Gap 12 H (3-11) BUN 37 H (6-23) mg/dl Creatinine 1.10 (0.6-1.4) mg/dl Est Cr Clr Drug Dosing 56.7 ml/min Est GFR ( Amer) 73.1 ml/min Est GFR (Non-Af Amer) 63.1 ml/min BUN/Creatinine Ratio 33.6 H (10-20) Glucose 230 H (70-99(Fasting)) mg/dl Lactate 3.9 H* 3.5 H* (0.4-2.0) mmol/L Calcium 8.9 (8.6-10.3) mg/dl Magnesium 2.1 (1.7-2.4) mg/dl Total Bilirubin 1.3 H (0.2-1.0) mg/dl AST 18 (13-39) U/L ALT 23 (7-52) U/L Alkaline Phosphatase 34 (34-104) U/L Troponin I High Sens 8.7 (0-20) pg/ml B-Natriuretic Peptide 278 H (0-100) pg/ml Total Protein 6.1 (6.0-8.3) gm/dl Albumin 4.1 (3.4-5.0) gm/dl Globulin 2.0 L (2.5-4.0) gm/dl Albumin/Globulin Ratio 2.0 (0.9-2) Adenovirus (PCR) Not Detected (NotDetected) B. pertussis DNA (PCR) Not Detected (NotDetected) B.parapertussis DNA PCR Not Detected (NotDetected) C. pneumoniae DNA (PCR) Not Detected (NotDetected) Coronavirus OC43 (PCR) Not Detected (NotDetected) Coronavirus HKU1 (PCR) Not Detected (NotDetected) Coronavirus 229E (PCR) Not Detected (NotDetected) SARS-CoV-2 (PCR) Not Detected (NotDetected) Coronavirus NL63 (PCR) Not Detected (NotDetected) Human Metapneumovir PCR Not Detected (NotDetected) Influenza Type A (PCR) Not Detected (NotDetected) Influenza Type B (PCR) Not Detected (NotDetected) M. pneumoniae (PCR) Not Detected (NotDetected) Parainfluenza 1 (PCR) Not Detected (NotDetected) Parainfluenza 2 (PCR) Not Detected (NotDetected) Parainfluenza 3 (PCR) Not Detected (NotDetected) Parainfluenza 4 (PCR) Not Detected (NotDetected) RSV (PCR) Not Detected (NotDetected) Entero/Rhino (PCR) DETECTED A (NotDetected) Administered Medications Discontinued Medications Ceftriaxone Sodium (Rocephin) 2,000 mg in 50 mls @ 100 mls/hr IV NOW STA Stop: 05/10/24 13:35 Last Infusion: 05/10/24 14:44 Dose: Infused Documented By: Admin: 05/10/24 13:23 Dose: 100 mls/hr Documented By: ILENE Sodium Chloride (Nss) 500 mls @ 999 mls/hr IV .Q31M ONE Stop: 05/10/24 13:40 Last Infusion: 05/10/24 14:44 Dose: Infused Documented By: Admin: 05/10/24 13:24 Dose: 999 mls/hr Documented By: ILENE Ioversol (Optiray 320 125ml) 117 ml IV ONCE ONE Stop: 05/10/24 14:18 Last Admin: 05/10/24 14:17 Dose: 117 ml Documented By: JEREMY Imaging Data Radiologist's Impression: Chest CTA 05/10/24 12:13 CHEST CTA for PULMONARY ARTERIES CT DOSE: 757.42 mGy.cm HISTORY: dyspnea; hemoptysis TECHNIQUE: Multiaxial CT images of the chest were performed following the intravenous administration of contrast to evaluate the pulmonary arteries. 3D/Maximal intensity projection images were also obtained. Sagittal and coronal reformations were also reviewed. A dose lowering technique was utilized adhering to the principles of ALARA. COMPARISON STUDY: Chest CT 12/30/2022. FINDINGS: Limited views of the upper abdomen demonstrate scattered punctate calcified granulomas within the liver and spleen. The visualized adrenal glands are unremarkable. Normal caliber thoracic aorta. No evidence for a dissection within the ascending thoracic aorta. The descending thoracic aorta is not well evaluated due to the timing of contrast. The heart is mildly enlarged. No pericardial effusion. Trace bilateral pleural effusions, unchanged. No mediastinal or hilar lymphadenopathy. Stable calcified mediastinal and left hilar lymph nodes. No significant change in the scattered calcified pleural plaques and pericardial calcifications. No filling defects within the pulmonary arteries to suggest a pulmonary embolus. Mild chronic bilateral pleural thickening remains unchanged. No acute fractures. No pneumothorax. The central airways are patent. There is mild central bronchial wall thickening. Mild interstitial thickening again noted. This could be chronic or represent mild congestive change. There is mild emphysema. Multifocal scattered patchy groundglass and irregular nodular densities seen within the lungs most pronounced within the right lower lobe. This has progressed within the right lower lobe and left upper lobe and favors an atypical pneumonitis. IMPRESSION: 1. No evidence for pulmonary embolus. 2. Cardiomegaly with mild interstitial thickening and trace bilateral pleural effusions. This may represent mild congestive change. 3. Scattered calcified pleural plaques and pericardial calcifications again noted. This is consistent with asbestos-related disease. 4. Mild emphysema. 5. Multifocal scattered patchy groundglass and irregular nodular densities seen within the lungs most pronounced within the right lower lobe. This has progressed within the right lower lobe and left upper lobe and favors an atypical pneumonitis. ACT 112: Negative or not required by law. Electronically signed by: Magnus Stephenson M.D. 05/10/2024 2:57 PM Chest X-Ray 05/10/24 12:13 XR chest 1V portable HISTORY: Dyspnea COMPARISON: Chest 01/31/2024. FINDINGS: No pneumothorax. The cardiac silhouette remains enlarged. There is progressive interstitial/vascular thickening consistent with mild pulmonary edema. There are trace bilateral pleural effusions. No acute fractures. Bilateral calcified pleural plaques are noted. IMPRESSION: 1. Cardiomegaly with mild interstitial pulmonary edema and trace bilateral pleural effusions. This has slightly progressed in the interval. 2. Calcified pleural plaques again noted. ACT 112: Negative or not required by law. Electronically signed by: Magnus Stephenson M.D. 05/10/2024 1:26 PM Discharge Plan Visit Data Chief Complaint: Shortness of Breath/Dyspnea Stated Complaint: SOB, COUGHING UP BLOOD ED Provider: Danielle Persaud Discharge Problem: Shortness of breath, Hemoptysis, Leukocytosis, Elevated lactic acid level, Pulmonary edema, Acute exacerbation of CHF (congestive heart failure), Rhinovirus infection Patient Disposition: Admitted As Inpatient Discharge Instructions Interventions: ED Discharge Assessment Last Done: 05/10/24 15:07 Forms Stand Alone Forms: My [employer] Prescriptions Prescriptions: No Action prednisone 5 mg Tablet 5 mg PO BID spironolactone 25 mg Tablet 25 mg PO DAILY gabapentin 300 mg Capsule 300 mg PO BID finasteride 5 mg Tablet 5 mg PO DAILY cholecalciferol (vitamin D3) [Vitamin D3] 25 mcg (1,000 unit) Tablet 50 mcg PO DAILY apixaban 5 mg Tablet 5 mg PO BID pantoprazole 40 mg Tablet,Delayed Release (Dr/Ec) 40 mg PO DAILY cyanocobalamin (vitamin B-12) [Vitamin B-12] 1,000 mcg Tablet 1,000 mcg PO DAILY fluticasone propion-salmeterol [Wixela Inhub] 500-50 mcg/dose Blister With Device 1 inh INHALATION BID furosemide 40 mg Tablet 40 mg PO QAM Qty: 30 1RF metoprolol succinate 50 mg Tablet Extended Release 24 Hr 50 mg PO BID Qty: 60 1RF rosuvastatin 20 mg Tablet 20 mg PO DAILY oxycodone 5 mg Tablet 5 mg PO Q4H PRN (Reason: pain) Qty: 30 0RF Referrals Referrals: Kellie Martínez PA-C [Physician Telesales Representative] -
[2024-05-10 13:04] LABS: Basophils # (auto) 0.03 K/uL (0.00-0.20); Basophils % (auto) 0.2 %; Eosinophils # (auto) 0.03 K/uL (0.00-0.50); Eosinophils % (auto) 0.2 %; Hematocrit (blood only) 36.3 % (42.0-52.0); Hemoglobin 12.1 g/dl (14.0-18.0); Immature Granulocytes # (auto) 0.17 K/uL (0.01-0.20); Lymphocytes % (auto) 7.7 %; Mean Corpuscular Hemoglobin 34.7 pg (25.0-34.0); Mean Corpuscular Hgb Conc 33.3 g/dL (32.0-36.0); Mean Platelet Volume 12.5 fL (9.4-12.4); Monocytes # (auto) 1.51 K/uL (0.11-0.59); Monocytes % (auto) 8.9 %; Neutrophils # (auto) 13.88 K/uL (1.40-6.50); Platelet Count 141 K/uL (130-400); RDW Coefficient of Variation 16.6 % (11.5-14.5); RDW Standard Deviation 62.6 fL (36.4-46.3); Red Blood Count 3.49 M/uL (4.70-6.10); White Blood Count 16.92 K/ul (4.8-10.8)
[2024-05-10 13:08] LABS: Base Excess VBG -5.2 mEq/L; HCO3 VBG 18 mmol/L; Oxygen Saturation VBG 84.9 %; PCO2 VBG 29 mmHg (38-50); PO2 VBG 53 mmHg; pH VBG 7.41 (7.36-7.41)
[2024-05-10] MEDS: cefTRIAXone SODIUM 2,000 MG/50 ML BAG IV STA (13:23)
[2024-05-10 13:24] LABS: Albumin Level 4.1 gm/dl (3.4-5.0); BUN Creatinine Ratio 33.6 (10-20); Bilirubin,Total 1.3 mg/dl (0.2-1.0); Calcium 8.9 mg/dl (8.6-10.3); Creatinine Clr Calc Pharmacy 56.7 ml/min; Est GFR (African American) 73.1 ml/min; Est GFR (Non-African American) 63.1 ml/min; Magnesium 2.1 mg/dl (1.7-2.4); Potassium 4.6 mmol/L (3.5-5.1); Total Protein 6.1 gm/dl (6.0-8.3)
[2024-05-10] MEDS: SODIUM CHLORIDE 0.9% 500 ML IV ONE (13:24)
[2024-05-10 13:27] LABS: Troponin I High Sensitivity 8.7 pg/ml (0-20)
[2024-05-10 13:28] LABS: INR 1.1 (0.9-1.1)
--- NOTE | 2024-05-10 13:28 | XRay Report ---
XR chest 1V portable HISTORY: Dyspnea COMPARISON: Chest 01/31/2024. FINDINGS: No pneumothorax. The cardiac silhouette remains enlarged. There is progressive interstitial /vascular thickening consistent with mild pulmonary edema. There are trace bilateral pleural effusion s. No acute fractures. Bilateral calcified pleural plaques are noted. IMPRESSION: 1. Cardiomegaly with mild interstitial pulmonary edema and trace bilateral pleural effusions. This de guzman s slightly progressed in the interval. 2. Calcified pleural plaques again noted. ACT 112: Negative or not required by law. Electronically signed by: Magnus Stephenson M.D. 05/10/2024 1:26 PM
[2024-05-10 13:37] LABS: Adenovirus PCR Not Detected (NotDetected); Bordetella parapertussis PCR Not Detected (NotDetected); Bordetella pertussis PCR Not Detected (NotDetected); Chlamydia pneumoniae PCR Not Detected (NotDetected); Coronavirus 229E PCR Not Detected (NotDetected); Coronavirus CoV-2 (COVID19)PCR Not Detected (NotDetected); Coronavirus HKU1 PCR Not Detected (NotDetected); Coronavirus NL63 PCR Not Detected (NotDetected); Coronavirus OC43PCR Not Detected (NotDetected); Human Metapneumovirus PCR Not Detected (NotDetected); Influenza A PCR Not Detected (NotDetected); Influenza B PCR Not Detected (NotDetected); Mycoplasma pneumoniae PCR Not Detected (NotDetected); Parainfluenza Virus 1 PCR Not Detected (NotDetected); Parainfluenza Virus 2 PCR Not Detected (NotDetected); Parainfluenza Virus 3 PCR Not Detected (NotDetected); Parainfluenza Virus 4 PCR Not Detected (NotDetected); Respiratory Syncytial VirusPCR Not Detected (NotDetected); Rhinovirus/Enterovirus PCR DETECTED (NotDetected)
[2024-05-10] MEDS: OPTIRAY 320 125ml IV ONE (14:17)
--- NOTE | 2024-05-10 14:37 | History & Physical Report ---
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 Sepsis in setting of rhinovirus Infection & Pneumonia; Hemoptysis Meets sepsis criteria 2/2 tachycardia, WBC >12K, present source of infection & lactic acidosis. Pt w/ hemoptysis & SOB [employer]. WBC 16.92, lactate 3.9; RVP positive for enterovirus/rhinovirus. Procalcitonin negative; Continue to trend lactate - follow results. UA ordered & pending - follow results. VBG w/ pH 7.41, pCO2 29 & HCO3 18. Pt received 0.5L NSS in ED; Will continue w/ 1L NSS @ 80cc/hr x 1 bag 2/2 lactic acidosis. CXR w/ the following findings: i. Cardiomegaly with mild interstitial pulmonary edema and trace bilateral pleural effusions. This has slightly progressed in the interval. ii. Calcified pleural plaques again noted. Chest CTA w/ the following findings: i. No evidence for pulmonary embolus. ii. Cardiomegaly with mild interstitial thickening and trace bilateral pleural effusions. This may represent mild congestive change. iii. Scattered calcified pleural plaques and pericardial calcifications again noted. This is consistent with asbestos-related disease. iv. Mild emphysema. v. Multifocal scattered patchy groundglass and irregular nodular densities seen within the lungs most pronounced within the right lower lobe. This has progressed within the right lower lobe and left upper lobe and favors an atypical pneumonitis. 2g IV Rocephin given in ED; Will continue ABX coverage w/ IV Rocephin & Doxycycline. Blood cultures pending - will follow results. Pulmonary toilet w/ scheduled nebs, flutter valve and incentive spirometry. Open Wounds of LLE & RLE Pt w/ multiple skin tears and wounds of both legs during previous admission in March. Pt closely following w/ [facility] as outpatient; Last visit wound care clinic on 05/08 - wounds improving per documentation. Will need wound care while inpatient - consult placed. COPD On Wixela [employer], can continue. Persistent Atrial Fibrillation On Eliquis & metoprolol succinate [employer]; Will continue metoprolol succinate, HOLD Eliquis for now. Repeat H&H tonight - closely monitor 2/2 presenting hemoptysis. Heart Failure w/ Preserved EF BNP 278 on admission; CXR w/ mild interstitial pulmonary edema and trace bilateral pleural effusions. Echo last performed on 02/02/24 and showed the following: i. Mild concentric LVH, LVEF = 55-60%. ii. Severely dilated left atrium, moderate aortic valve sclerosis & moderate mitral regurgitation. On furosemide & spironolactone [employer] - will continue. EKG w/ chest pain PRN; Continuous cardiac monitoring in place. Monitor closely for signs/symptoms of fluid overload - daily weights. Rheumatoid Arthritis On chronic prednisone therapy [employer] - will continue; Pt also on gabapentin, will continue. Hyperglycemia Type II Diabetes Mellitus Chronic, likely steroid-induced hyperglycemia; Pt currently on chronic prednisone therapy 2/2 RA. Hgb A1c 7.5 on 03/26/24, BSG 230 on admission; Diet-controlled, will continue to monitor BSG level. Chronic Macrocytic Anemia Stable, Hgb 12.1 on admission; Baseline Hgb 11-13 per chart review. BPH w/ LUTS: On finasteride [employer], can continue. Hyperlipidemia: On statin therapy [employer], can continue. GERD: On pantoprazole [employer], can continue. DVT Prophylaxis: [employer] Eliquis on hold for now 2/2 presenting hemoptysis. Code Status: FULL CODE PCP: [facility] Disposition: Admit to PCU/Telemetry OF NOTE: Patient's son, Kendrick, would like daily updates regarding his father (# [phone]). Patient seen in collaboration with Dr. Gimenez. Please see addendum. I spent a total of 60 minutes coordinating, documenting, and providing care for this patient excluding time spent in the performance of separately billed services. This included personally reviewing all current laboratories and imaging studies, medical reconciliation, outpatient chart review and discussion with specialists. This chart was completed in part utilizing Speech Voice Recognition Software. Grammatical errors, random word insertions, pronoun errors, and incomplete sentences are an occasional consequence of this system due to software limitations, ambient noise, and hardware issues. Any formal questions or concerns about the content, text, or information contained within the body of this dictation should be directly addressed to the provider for clarification. History of Present Illness Chief Complaint: SOB, Hemoptysis Primary Care Provider: [facility] Anil Peña is an 78y/o M with PMHx of dyslipidemia, diet-controlled type 2 DM, history of SVT, ascending aorta enlargement, chronic heart failure with pres erved ejection fraction, longstanding persistent atrial fibrillation [on Eliquis], aneurysm of the ascending aorta without rupture, HTN, BPH with obstruction/LUTS, polyneuropathy, rheumatoid arthritis on chronic use of systemic steroids, COPD and other problems listed below who presented to the ED for evaluation secondary to shortness of breath and hemoptysis. History obtained from patient, son at bedside and associated chart review. Son reports that the patient woke up this morning and felt very short of breath and started coughing up dark blood-tinged sputum. Patient reports coughing up bl oody sputum approximately 4 times this morning. He denies any recent illnesses, fevers or known sick contacts. Patient is on Eliquis for history of persistent atrial fibrillation. Patient was seen by home health today for his lower extremity wound care [as documented in his previous hospitalization here at [facility] in March] and the nurse was concerned that the patient's lungs sounded "wet." Patient was also tachycardic according to the home health nurse with a heart rate of approximately 146 bpm - therefore, the home health nurse insisted the patient go to the ER for further work-up. Patient denies any chest pain or history of DVT/PE. He does report persistent lower extremity swelling and edema, which is unchanged from his baseline. Patient does take furosemide and spironolactone at home daily. He was feeling short of breath this morning. His son reports that he was having increased shortness of breath with exertion - patient could not even walk 5 to 10 feet without stopping for a break. Patient does report that he has had some minor sinus congestion for the last few days, but "otherwise feels fine." The patient was initially reluctant to come to the ED for evaluation, but his son insisted that he get checked out. Allergies Allergy/AdvReac Type Severity Reaction Status Date / Time No Known Allergies Allergy Verified 05/10/24 14:55 Home Medications Medication Instructions Recorded Confirmed Type finasteride 5 mg tablet 5 mg PO DAILY 04/25/20 05/10/24 History gabapentin 300 mg capsule 300 mg PO BID 04/25/20 05/10/24 History prednisone 5 mg tablet 5 mg PO BID 04/25/20 05/10/24 History spironolactone 25 mg tablet 25 mg PO DAILY 04/25/20 05/10/24 History cholecalciferol (vitamin D3) 25 50 mcg PO DAILY 07/30/20 05/10/24 History mcg (1,000 unit) tablet (Vitamin D3) apixaban 5 mg tablet 5 mg PO BID 12/31/22 05/10/24 History pantoprazole 40 mg tablet,delayed 40 mg PO DAILY 12/31/22 05/10/24 History release cyanocobalamin (vitamin B-12) 1,000 mcg PO DAILY 01/31/24 05/10/24 History 1,000 mcg tablet (Vitamin B-12) fluticasone 500 mcg-salmeterol 50 1 inh inhalation BID 01/31/24 05/10/24 History mcg/dose blistr powdr for inhalation (Wixela Inhub) furosemide 40 mg tablet 40 mg PO QAM #30 tabs 02/08/24 05/10/24 Rx metoprolol succinate 50 mg 50 mg PO BID #60 tabs 02/08/24 05/10/24 Rx tablet,extended release 24 hr rosuvastatin 20 mg tablet 20 mg PO DAILY 03/25/24 05/10/24 History oxycodone 5 mg tablet 5 mg PO Q4H PRN pain #30 tabs 03/28/24 05/10/24 Rx Past Med/Surg History Problem List (Updated 05/10/24 @ 17:04 by Aide Luo PA-C) Pneumonitis Severe sepsis Rhinovirus infection (Acute) Acute exacerbation of CHF (congestive heart failure) (Acute) Pulmonary edema (Acute) Elevated lactic acid level (Acute) Leukocytosis (Acute) Hemoptysis (Acute) Shortness of breath (Acute) Traumatic open wound of right lower leg with delayed healing (Acute) Traumatic open wound of left lower leg with delayed healing (Acute) Avulsion of skin of left lower leg Thrombocytopenia (Acute) Multiple skin tears (Acute) History of CHF (congestive heart failure) (Acute) History of COPD (Acute) Bilateral edema of lower extremity (Acute) Bilateral cellulitis of lower leg (Acute) Acute on chronic heart failure with preserved ejection fraction (HFpEF) Bilateral cellulitis of lower leg Sepsis Vomiting (Acute) Pneumonia (Acute) Shortness of breath (Acute) Aspiration into airway (Acute) COPD exacerbation Tachycardia-bradycardia syndrome Sinus pause SOB (shortness of breath) (Acute) PAC (premature atrial contraction) (Acute) Chest pain (Acute) Hx of supraventricular tachycardia COPD (chronic obstructive pulmonary disease) Rheumatoid arthritis (Acute) Medical History Cellulitis Hx of peripheral neuropathy BPH (benign prostatic hyperplasia) Ascending aorta enlargement Surgical History History of thoracotomy H/O inguinal hernia repair Family History Father Heart disease Social History Smoking Status: Former smoker Tobacco Type: Cigarettes Cigarettes Per Day: 1 PPD; Second Hand Exposure: No; Do You Dip or Chew Tobacco: Yes; Tobacco Cessation Education Requested by Patient: No Hx Alcohol Use: No Hx Substance Use: No Preferred Language: Malawian Communication Ability: Effective Visual Impairment: Limited Hearing Ability: Hard of Hearing Brand Strategist Required: No Beliefs That Will Affect Care: None marital status: / Current Living Situation: Alone Current Living Situation Comment: Lives alone, son lives in close proximity current occupational status: retired How many Children do You have: 3 How many Children do You have Comment: All children live close and one son that lives closest is able to assist Other Information That Helps Us Care for You: No Feels Safe at Home: Yes Safety Concerns: Feels Safe At This Time Diet: regular during the past year weight has: remained stable Assistive Devices: Cane, Denture - Upper and Hospital Bed Review of Systems Review of Systems: At least ten systems reviewed and negative, except as noted in the HPI. Physical Exam Physical Exam: General: WD/WN, vitals as above, NAD, sitting up in bed, some conversational dyspnea noted. A+Ox3, euthymic affect. HEENT: Normocephalic, atraumatic. PERRL, conjunctivae normal, anicteric sclerae. External ear and nose normal, oropharynx slightly dry. Respiratory: Normal respiratory effort, crackles heard in b/l lower lung mcbride (R>L). No accessory muscle use. Cardiovascular: Irregular rate, rhythm, no murmur, normal peripheral pulses. +1 pitting edema in b/l lower extremities. Abdomen/GI: Normal bowel sounds, soft, nontender, no hepatosplenomegaly. Extremities/Musculoskeletal: No cyanosis or clubbing, extremities motor strength intact, moves all extremities. Neurologic: EOMI, accommodation nl, no face palsy, no dysarthria, CN's II-XI not formally tested but appear grossly intact bilaterally. Skin: Normal color, warm/dry. Dressings intact over bilateral lower extremities, did not visualize wounds directly [pt did not want bandaging removed]. Results & Data Results & Data Vital Signs (Past 12 Hours) Vital Signs Temp Pulse Pulse Resp BP BP Pulse Ox 05/10/24 14:07 96 H 05/10/24 12:29 05/10/24 12:29 98 H 18 99/81 L 95 05/10/24 12:08 36.4 C L 105 H 22 112/73 95 05/10/24 12:08 O2 Del Method 05/10/24 14:07 05/10/24 12:29 Room Air 05/10/24 12:29 Room Air 05/10/24 12:08 Room Air 05/10/24 12:08 Room Air Laboratory Results Short CBC 05/10/24 Range/Units 12:25 WBC 16.92 H (4.8-10.8) K/ul Hgb 12.1 L (14.0-18.0) g/dl Hct 36.3 L (42.0-52.0) % Plt Count 141 (130-400) K/uL BMP 05/10/24 12:25 Sodium 135 L Potassium 4.6 Chloride 103 Carbon Dioxide 20 L BUN 37 H Creatinine 1.10 Glucose 230 H Calcium 8.9 Liver Function 05/10/24 Range/Units 12:25 Total Bilirubin 1.3 H (0.2-1.0) mg/dl AST 18 (13-39) U/L ALT 23 (7-52) U/L Alkaline Phosphatase 34 (34-104) U/L Albumin 4.1 (3.4-5.0) gm/dl Diagnostic Findings Chest X-Ray 05/10/24 12:13 XR chest 1V portable HISTORY: Dyspnea COMPARISON: Chest 01/31/2024. FINDINGS: No pneumothorax. The cardiac silhouette remains enlarged. There is progressive interstitial/vascular thickening consistent with mild pulmonary edema. There are trace bilateral pleural effusions. No acute fractures. Bilateral calcified pleural plaques are noted. IMPRESSION: 1. Cardiomegaly with mild interstitial pulmonary edema and trace bilateral pleural effusions. This has slightly progressed in the interval. 2. Calcified pleural plaques again noted. ACT 112: Negative or not required by law. Electronically signed by: Magnus Stephenson M.D. 05/10/2024 1:26 PM Medications Administered Discontinued Medications Ceftriaxone Sodium (Rocephin) 2,000 mg in 50 mls @ 100 mls/hr IV NOW STA Stop: 05/10/24 13:35 Last Infusion: 05/10/24 14:44 Dose: Infused Documented By: Admin: 05/10/24 13:23 Dose: 100 mls/hr Documented By: ILENE Sodium Chloride (Nss) 500 mls @ 999 mls/hr IV .Q31M ONE Stop: 05/10/24 13:40 Last Infusion: 05/10/24 14:44 Dose: Infused Documented By: Admin: 05/10/24 13:24 Dose: 999 mls/hr Documented By: ILENE Ioversol (Optiray 320 125ml) 117 ml IV ONCE ONE Stop: 05/10/24 14:18 Last Admin: 05/10/24 14:17 Dose: 117 ml Documented By: JEREMY Code Status & VTE Plan Code Status FULL CODE Supervising Physician Co-Signing Physician Notes Patient was seen and examined independently at bedside. Chart reviewed. Case discussed with Aide HARVEY and agree with the documentation above. In summary, this is a 78 year old male who presented to the ED with hemoptysis and SOB after coughing episodes at home today. States blood tinged sputum, not a whole lot. Feels a lot better after ED presentation and denies any more hemoptysis or SOB. Work up shows he is positive for rhinovirus along with PNA on imaging. H and H stable, and hemoptysis seems related to infection, hence will monitor for now while holding his eliquis, can likely resume tomorrow if H and H remains stable and no more hemoptysis, otherwise he will need pulm eval for bronchoscopy. Regarding sepsis with rhinovirus infection and pneumonia, he will be covered empirically with antibiotics for now. He will be continued on ivf for his lactic acidosis but will be careful given his h/o CHF and being on diuretics. He is on chronic prednisone for his RA- No need for stress dose steroids for now as he is hemodynamically stable. Can consider if BP drops down. GI prophylaxis as he is on steroids. Rest as per the note above. (3) Pneumonia Pneumonia type: aspiration pneumonia
--- NOTE | 2024-05-10 14:59 | CT Scan Report ---
CHEST CTA for PULMONARY ARTERIES CT DOSE: 757.42 mGy.cm HISTORY: dyspnea; hemoptysis TECHNIQUE: Multiaxial CT images of the chest were performed following the intravenous administration of contrast to evaluate the pulmonary arteries. 3D/Maximal intensity projection images were also obta ined. Sagittal and coronal reformations were also reviewed. A dose lowering technique was utilized a dhering to the principles of ALARA. COMPARISON STUDY: Chest CT 12/30/2022. FINDINGS: Limited views of the upper abdomen demonstrate scattered punctate calcified granulomas with in the liver and spleen. The visualized adrenal glands are unremarkable. Normal caliber thoracic aort a. No evidence for a dissection within the ascending thoracic aorta. The descending thoracic aorta is not well evaluated due to the timing of contrast. The heart is mildly enlarged. No pericardial effus ion. Trace bilateral pleural effusions, unchanged. No mediastinal or hilar lymphadenopathy. Stable ca lcified mediastinal and left hilar lymph nodes. No significant change in the scattered calcified pleu ral plaques and pericardial calcifications. No filling defects within the pulmonary arteries to sugge st a pulmonary embolus. Mild chronic bilateral pleural thickening remains unchanged. No acute fractur es. No pneumothorax. The central airways are patent. There is mild central bronchial wall thickening. Mild interstitial thickening again noted. This could be chronic or represent mild congestive change. There is mild emphysema. Multifocal scattered patchy groundglass and irregular nodular densities see n within the lungs most pronounced within the right lower lobe. This has progressed within the right lower lobe and left upper lobe and favors an atypical pneumonitis. IMPRESSION: 1. No evidence for pulmonary embolus. 2. Cardiomegaly with mild interstitial thickening and trace bilateral pleural effusions. This may rep resent mild congestive change. 3. Scattered calcified pleural plaques and pericardial calcifications again noted. This is consistent with asbestos-related disease. 4. Mild emphysema. 5. Multifocal scattered patchy groundglass and irregular nodular densities seen within the lungs most pronounced within the right lower lobe. This has progressed within the right lower lobe and left upp er lobe and favors an atypical pneumonitis. ACT 112: Negative or not required by law. Electronically signed by: Magnus Stephenson M.D. 05/10/2024 2:57 PM
[2024-05-10] MEDS ORDERED: ONDANSETRON INJ 2 MG/ML 2 ML VIAL IV PRN (15:25)
[2024-05-10] MEDS ORDERED: POLYETHYLENE (MIRALAX) 17 GM PACK PO PRN (15:25)
[2024-05-10] MEDS ORDERED: cefTRIAXone SODIUM 2,000 MG/50 ML BAG IV SCH (16:30)
--- OUTSIDE RECORDS SUMMARY | 2024-05-10 16:51 | External Medical Summary | Summary of Care ---
Author Name Unknown Organization [facility] Address [address] [facility] [place] [address] Phone [phone] Care Team Providers Care Green End Department Supervisor Name Role Phone Pura Banerjee Primary Care Provider Reason for Visit * Reason Onset Date Comments Hospital Follow-Up Patient mariama aldridge in office today for [facility] follow-up visit --was admitted. Hospital Follow-Up 04/26/2024 Encounter Details Date Type Department Care Team (Late st Contact Info) Description 04/26/2024 11:00 AM EDT Office Visit Family Practice [facility] [address] [place] [address] Pura Banerjee CRNP [address] [place] [address] Hospital discharge follow-up*; Bilateral cellulitis of lower leg; Multiple skin tears; Type 2 diabetes mellitus without complication, without long-term current use of insulin (HCC); HTN, goal below 140/90; Chronic heart failure with preserved ejection fraction (HCC) Allergies Active Allergy Reactions Criticality Noted Date Comments Other - Drugs Diarrhea,Nausea/vomiting 10/12/18 99 Dimox documented as of this encounter (statuses as of 04/26/2024) Medications Medication Sig Dispensed Refills Start Date End Date Status finasteride (PROSCAR) 5 MG Tablet Take 1 Tab by mouth daily. 90 Tab 3 09/26/2016 Active Vitamin D (Cholecalciferol ) 25 MCG (1000 UT) Oral Tablet Take by mouth. 1 tab twice daily Active Apixaban 5 MG Oral Tablet (ELIQUIS)Indicat ions:A-fib (HCC) Take 1 Tab by mouth 2 times a day. 180 Tab 3 09/04/2020 Active predniSONE 5 MG Oral Tablet (Deltasone) Take 1 Tablet by mouth in the morning and 1 Tablet before bedtime. Active Pantoprazole Sodium 40 MG Oral Tablet Delayed Release (PROTONIX) Take 1 Tab by mouth daily. 30 Tab 5 09/11/2020 Active Spironolactone 25 MG Oral Tablet (Aldactone) Take 1 Tablet by mouth in the morning. 90 Tab 3 03/05/2021 Active Gabapentin 300 MG Oral Capsule (Neurontin) Take 1 Capsule by mouth in the morning and 1 Capsule before bedtime. Active Fluticasone-Salm eterol 500-50 MCG/ACT Inhalation Aerosol Powder Breath Activated (Advair Diskus) USE 1 INHALATION BY ORAL INHALATION TWICE A DAY FOR COPD REPLACES SYMBICORT RINSE MOUTH AFTER USE 02/10/2022 Active B-12 1000 MCG Oral Tablet daily. 01/31/2024 Active Furosemide 20 MG Oral Tablet (Lasix)Indicatio ns:HTN, goal below 140/90,Dyslipide mohini, goal LDL below 70 Take 2 Tablets by mouth in the morning. 180 Tablet 3 02/15/2024 Active Additional Information Patient taking differently: 20 mgOral Daily(AM), Reported on 03/15/2024 Metoprolol Succinate ER 50 MG Oral Tablet Extended Release 24 Hour (toPROL XL)Indications:H TN, goal below 140/90,Dyslipide mohini, goal LDL below 70 Take 1 Tablet by mouth in the morning and 1 Tablet before bedtime. 180 Tablet 3 02/15/2024 Active Rosuvastatin Calcium 20 MG Oral Tablet (Crestor)Indicat ions:HTN, goal below 140/90,Dyslipide mohini, goal LDL below 70 Take 1 Tablet by mouth in the morning. 90 Tablet 3 02/15/2024 Active oxyCODONE HCl 5 MG Oral Tablet (Oxy IR) Take 1 Tablet by mouth every 6 hours as needed for Pain, Moderate. 30 Tablet 04/26/2024 Active oxyCODONE HCl 5 MG Oral Tablet (Oxy IR) Take 1 Tablet by mouth every 4 hours as needed. 03/28/2024 4 Discontinue d(Refill) documented as of this encounter (statuses as of 04/26/2024) Active Problems Problem Noted Date Diagnosed Date Multiple skin tears 04/26/2024 Bilateral cellulitis of lower leg 04/26/2024 Hospital discharge follow-up 04/26/2024 Hypertensive heart disease w ith chronic diastolic [...] as of this encounter (statuses as of 04/26/2024) Resolved Problems Problem Noted Date Diagnosed Date [...] as of this encounter (statuses as of 04/26/2024) Immunizations Name Administration Dates Next Due Pneumococcal Conjugate Vacci ne, 20-valent ([id number]) 08/02/2022 Pneumococcal Polysaccharide PPV23 (Pneumovax) 07/30/2020,07/23/2007 Seasonal [...] Sign Reading Time Taken Comments Blood Pressure 126/78 04/26/2024 10:52 AM EDT Pulse 91 04/26/2024 10:52 AM EDT Temperature - - Respiratory Rate 18 04/26/2024 10:52 AM EDT Oxygen Saturation 98% 04/26/2024 10:52 AM EDT Inhaled Oxygen Concentration - - Weight - - Height 170.2 cm (5' 7") 04/26/2024 10:52 AM EDT Body Mass Index - - documented in this encounter Functional Status Functional [...] as of this encounter Progress Notes * Pura Banerjee CRNP - 04/26/2024 11:13 AM EDT Images from the original note were not included. SUBJECTIVE: Anil Peña is a 78 year old male. Chief Complaint Patient presents with Hospital Follow-Up Patient presents in office today for [facility] follow-up visit --was admitted. Hospital Follow-Up Recent Admission: Patient was recently admitted to [facility] for bilateral leg cellulitis. The date of discharge was 03/28/2024 Discharge report received and reviewed. WBC mildly elevated No CHF or COPD exacerbation Treated with antibiotics He is following up with outpatient wound care regularly. HPI: Since discharge he has been seeing outpatient wound care and has home health. Denies fever. Legs today are wrapped and unable to evaluate. No increased swelling or redness that I can see. 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 History of rheumatoid arthritis SVT (supraventricular tachycardia) (HCC) Ascending aorta enlargement (HCC) Polyneuropathy, unspecified Longstanding persistent atrial fibrillation (HCC) Dyslipidemia, goal LDL below 70 Cellulitis of right arm Aneurysm of the ascending aorta, without rupture (HCC) Pneumonia of both lower lobes due to infectious organism Steroid-induced hyperglycemia Prediabetes Chronic heart failure with preserved ejection fraction (HCC) HTN, goal below 140/90 Superficial foreign body of right leg without major open wound and without infection Type 2 diabetes mellitus without complication, without long-term current use of insulin (HCC) Hypertensive heart disease with chronic diastolic congestive heart failure (HCC) Multiple skin tears Bilateral cellulitis of lower leg Hospital discharge follow-up Current Outpatient Medications Medication Sig Dispense Refill finasteride (PROSCAR) 5 MG Tablet Take 1 Tab by mouth daily. 90 Tab 3 Vitamin D (Cholecalciferol) 25 MCG (1000 UT) Oral Tablet Take by mouth. 1 tab twice daily Apixaban 5 MG Oral Tablet (ELIQUIS) Take 1 Tab by mouth 2 times a day. 180 Tab 3 predniSONE 5 MG Oral Tablet (Deltasone) Take 1 Tablet by mouth in the morning and 1 Tablet before bedtime. Pantoprazole Sodium 40 MG Oral Tablet Delayed Release (PROTONIX) Take 1 Tab by mouth daily. 30 Tab 5 Spironolactone 25 MG Oral Tablet (Aldactone) Take 1 Tablet by mouth in the morning. 90 Tab 3 Gabapentin 300 MG Oral Capsule (Neurontin) Take 1 Capsule by mouth in the morning and 1 Capsule before bedtime. Fluticasone-Salmeterol 500-50 MCG/ACT Inhalation Aerosol Powder Breath Activated (Advair Diskus) USE 1 INHALATION BY ORAL INHALATION TWICE A DAY FOR COPD REPLACES SYMBICORT RINSE MOUTH AFTER USE B-12 1000 MCG Oral Tablet daily. Furosemide 20 MG Oral Tablet (Lasix) Take 2 Tablets by mouth in the morning. (Patient taking differently: Take 1 Tablet by mouth in the morning.) 180 Tablet 3 Metoprolol Succinate ER 50 MG Oral Tablet Extended Release 24 Hour (toPROL XL) Take 1 Tablet by mouth in the morning and 1 Tablet before bedtime. 180 Tablet 3 Rosuvastatin Calcium 20 MG Oral Tablet (Crestor) Take 1 Tablet by mouth in the morning. 90 Tablet 3 oxyCODONE HCl 5 MG Oral Tablet (Oxy IR) Take 1 Tablet by mouth every 4 hours as needed. No current facility-administered medications for this visit. Current and discharge medications have been reconciled. Review of patient's allergies indicates: Allergen Reactions Other - Drugs Diarrhea and Nausea/vomiting Dimox OBJECTIVE: BP 126/78 | Pulse 91 | Resp 18 | Ht 1.702 m (5' 7") | SpO2 98% | BMI 27.41 kg/m | BSA 1.94 m REVIEW OF SYSTEMS: PHYSICAL EXAM: BP 126/78 | Pulse 91 | Resp 18 | Ht 1.702 m (5' 7") | SpO2 98% | BMI 27.41 kg/m | BSA 1.94 m Physical Exam HENT: Head: Normocephalic. Cardiovascular: Rate and Rhythm: Normal rate. Pulmonary: Effort: Pulmonary effort is normal. Breath sounds: Decreased breath sounds present. Skin: Comments: Dressing in place Neurological: General: No focal deficit present. Mental Status: He is alert and oriented to person, place, and time. Psychiatric: Mood and Affect: Mood normal. Behavior: Behavior normal. Thought Content: Thought content normal. Judgment: Judgment normal. ASSESSMENT: 1. Hospital discharge follow-up - DISCH MED RECON CUR MED LIS 2. Bilateral cellulitis of lower leg Improved and resolved Working with wound care for skin tears 3. Multiple skin tears Working with wound care 4. Type 2 diabetes mellitus without complication, without long-term current use of insulin (HCC) stable 5. HTN, goal below 140/90 stable 6. Chronic heart failure with preserved ejection fraction (HCC) Euvolemic today Follow Up: Return in about 3 months (around 07/27/2024) for Chriss Return 40. | For: Chriss Return 40 I spent a total of 40-54 minutes (exact time 40 mins) on the date of service in preparation, delivery, and documentation of the care provided to Anil Peña excluding any time spent in the performance of separately billed services. ADELA Ibarra documented in this encounter Nursing Notes * Anusha Ernandez, MED ASSIST - 04/26/2024 10:50 AM EDT The patient has been properly identified by confirmation of name and date of . Chief Complaint Patient presents with Hospital Follow-Up Patient presents in office today for [facility] follow-up visit --was admitted. documented in this encounter Plan of Treatment Upcoming Encounters Date Type Department Care Team (Late st Contact Info) Description 08/16/2024 11:30 AM EST Office Visit Hematology/Oncology [facility] [address] [place] [address] Meghan Cristina CRNP [address] [place] [address] 11/05/2024 8:30 AM EST Office Visit Cardiology, [facility] [address] [place] [address] Ian Denny MD [address] [place] [address] Health Maintenance Due Date Last Done Comments COVID-19 Vaccine (#1) 1948 Albumin/Creatinine Ratio 1961 Diabetic Foot Exam 1961 Zoster Vaccines (1 of 2) 1962 DXA Scan 11/04/2016 11/04/2013, 10/10, 10/22/2010, Additional history exists HbA1c 09/28/2023 03/29/2023, 10/10, 10/24/2019, Additional history exists Depression Screening 01/11/2024 01/10/2023 Diabetic Eye Exam 05/22/2024 05/22/2023, , 09/14/1998, Additional history exists Influenza Vaccine (FLU shot) (#1) 2024 06/16/2023, 07/27/2021, 07/27/2021, Additional history exists GFR 03/28/2025 03/28/2024, 05/0 06/2024, 01/29/2024, Additional history exists DTaP,Tdap,and Td Vaccines (2 - Td or Tdap) 02/06/2026 02/07/2016, 05/20/1999 Pneumococcal Vaccine: 65+ Years Completed 08/02/2022, 07/30/2020, 11/05/2018, Additional history exists HPV (Gardasil) Vaccine Aged Out No lo nger eligible based on patient's age to complete this topic Hepatitis B Vaccine Aged Out No longe r eligible based on patient's age to complete this topic MENINGOCOCCAL (MENACTRA/MENVEO) Aged Out No longer eligible based on patient's age to complete this topic documented as of this encounter Medical Devices Not on filedocumented as of this encounter Visit Diagnoses Diagnosis Hospital discharge follow-up- Primary Other follow-up examination Bilateral cellulitis of lower leg Cellulitis and abscess of leg, except foot Multiple skin tears Open wound(s) (multiple) of unspecified site(s), without mention of complication Type 2 diabetes mellitus without complication, without long-term current use of insulin (HCC) HTN, goal below 140/90 Unspecified essential hypertension Chronic heart failure with preserved ejection fraction (HCC) documented in this encounter Advance Directives * Full Code (Latest Code Status on File) Date Activated Date Inactivated Comments 07/15/2022 2:11 PM 07/22/2022 4:34 PM This order reflects the patients wishes and were consensually agreed upon. Question Answer Comments Discussion of Advance Directives occurred with: Patient Care Teams Green End Department Supervisor Relationship Specialty Start Date End Date Pura Banerjee CRNP [address] [place] [address] PCP - General Nurse Practitioner 04/09/24 documented as of this encounter
--- OUTSIDE RECORDS SUMMARY | 2024-05-10 16:51 | External Medical Summary | Summary of Care ---
Author Name Unknown Organization [facility] Address [address] [facility] [place] [address] Phone [phone] Care Team Providers Care Wildlife Technician Name Role Phone Germanmary ellenYamilasa Rochelle CHAPMAN Primary Care Provider Encounter Details Date Type Department Care Team (Late st Contact Info) Description 05/08/2024 Population Health External Data Unspecified Department Allergies Active Allergy Reactions Criticality Noted Date Comments Other - Drugs Diarrhea,Nausea/vomiting 10/12/18 99 Dimox documented as of this encounter (statuses as of 05/08/2024) Medications Medication Sig Dispensed Refills Start Date End Date Status finasteride (PROSCAR) 5 MG Tablet Take 1 Tab by mouth daily. 90 Tab 3 09/26/2016 Active Vitamin D (Cholecalciferol) 25 MCG (1000 UT) Oral Tablet Take by mouth. 1 tab twice daily Active Apixaban 5 MG Oral Tablet (ELIQUIS)Indicatio ns:A-fib (HCC) Take 1 Tab by mouth 2 [...] morning and 1 Capsule before bedtime. Active Fluticasone-Salmet nayely 500-50 MCG/ACT Inhalation Aerosol Powder Breath Activated (Advair Diskus) USE 1 INHALATION BY ORAL INHALATION TWICE A DAY FOR COPD REPLACES SYMBICORT RINSE MOUTH AFTER USE 02/10/2022 Active B-12 1000 MCG Oral Tablet daily. 01/31/2024 Active Furosemide 20 MG Oral Tablet (Lasix)Indications :HTN, goal below 140/90,Dyslipidemi a, goal LDL below 70 Take 2 Tablets by mouth in the morning. 180 Tablet 3 02/15/2024 Active Additional Information Patient taking differently: 20 mgOral Daily(AM), Reported on 03/15/2024 Metoprolol Succinate ER 50 MG Oral Tablet Extended Release 24 Hour (toPROL XL)Indications:HTN , goal below 140/90,Dyslipidemi a, goal LDL below 70 Take 1 Tablet by mouth in the morning and 1 Tablet before bedtime. 180 Tablet 3 02/15/2024 Active Rosuvastatin Calcium 20 MG Oral Tablet (Crestor)Indicatio ns:HTN, goal below 140/90,Dyslipidemi a, goal LDL below 70 Take 1 Tablet by mouth in the morning. 90 Tablet 3 02/15/2024 Active oxyCODONE HCl 5 MG Oral Tablet (Oxy IR) Take 1 Tablet by mouth every 6 hours as needed for Pain, Moderate. 30 Tablet 04/26/2024 Active documented as of this encounter (statuses as of 05/08/2024) Active Problems Problem Noted Date Diagnosed Date [...] as of this encounter (statuses as of 05/08/2024) Resolved Problems Problem Noted Date Diagnosed Date [...] as of this encounter (statuses as of 05/08/2024) Immunizations Name Administration Dates Next Due Pneumococcal Conjugate Vacci ne, 20-valent ([id number]) 08/02/2022 Pneumococcal Polysaccharide PPV23 (Pneumovax) 07/30/2020,07/23/2007 Seasonal [...] 08/16/2024 11:30 AM EST Office Visit Hematology/Oncology [facility] [place] [address] [place], [place] [address] Meghan Cristina CRNP [address] [place] [address] 11/05/2024 8:30 AM EST Office Visit Cardiology, [facility] [address] [place] [address] Ian Denny MD [address] [place] [address] Health Maintenance Due Date Last Done Comments [...] Advance Directives occurred with: Patient Care Teams Wildlife Technician Relationship Specialty Start Date End Date Pura Banerjee CRNP [address] [place] [address] PCP - General Nurse Practitioner 04/09/24 documented as of this encounter
--- OUTSIDE RECORDS SUMMARY | 2024-05-10 16:52 | External Medical Summary | Summary of Care ---
Author Name Unknown Organization [facility] Address [address] [facility] [place] [address] Phone [phone] Care Team Providers Care Motor Vehicle Technician Name Role Phone Chriss Pura CHAPMAN Primary Care Provider Encounter Details Date Type Department Care Team (Late st Contact Info) Description 03/25/2024 Result Scan Unspecified Department <No scans attached> Allergies Active Allergy Reactions Criticality Noted Date Comments Other - Drugs Diarrhea,Nausea/vomiting 10/12/18 99 Dimox documented as of this encounter (statuses as of 04/25/2024) Medications Medication Sig Dispensed Refills Start Date [...] the morning. 90 Tablet 3 02/15/2024 Active documented as of this encounter (statuses as of 04/25/2024) Active Problems Problem Noted Date Diagnosed Date [...] as of this encounter (statuses as of 04/25/2024) Resolved Problems Problem Noted Date Diagnosed Date [...] as of this encounter (statuses as of 04/25/2024) Immunizations Name Administration Dates Next Due Pneumococcal Conjugate Vacci ne, 20-valent ([id number]) 08/02/2022 Pneumococcal Polysaccharide PPV23 (Pneumovax) 07/30/2020,07/23/2007 Seasonal [...] 11:00 AM EDT Office Visit Family Practice [facility] [address] [place] [address] Pura Banerjee CRNP [address] [place] [address] 08/16/2024 11:30 AM EST Office Visit Hematology/Oncology [facility] [place] [address] [place] [address] [facility] [address] [facility] [place] [address] 11/05/2024 8:30 AM EST Office Visit Cardiology, [facility] [address] [place] [address] Ian Denny MD [address] [place] [address] Health Maintenance Due Date Last Done Comments [...] 06/16/2023, 07/27/2021, 07/27/2021, Additional history exists GFR 02/14/2025 03/28/2024, 05/0 06/2024, 01/29/2024, Additional history exists [...] Not on filedocumented as of this encounter Procedures Procedure Name Priority Date/Time Associated Diagnosis Comments OUTSIDE LAB RESULTS 03/25/2024 documented in this encounter Results * OUTSIDE LAB RESULTS (03/25/2024) 03/25/2024 No Physician Data Unknown LABORATORY documented in this encounter Advance Directives * Full Code (Latest Code Status on File) Date Activated Date Inactivated Comments 07/15/2022 2:11 PM 07/22/2022 4:34 PM This order reflects the patients wishes and were consensually agreed upon. Question Answer Comments Discussion of Advance Directives occurred with: Patient Care Teams Motor Vehicle Technician Relationship Specialty Start Date End Date Pura Banerjee CRNP [address] [place] [address] PCP - General Nurse Practitioner 04/09/24 documented as of this encounter
--- OUTSIDE RECORDS SUMMARY | 2024-05-10 16:52 | External Medical Summary | Summary of Care ---
Author Name Unknown Organization [facility] Address [address] [facility] [place] [address] Phone [phone] Care Team Providers Care Coating Engineer Name Role Phone Pura Banerjee Primary Care Provider Encounter Details Date Type Department Care Team (Late st Contact Info) Description 04/25/2024 Orders Only Family Practice [facility] [address] [place] [address] Pura Banerjee CRNP [address] [place] [address] Allergies Active Allergy Reactions Criticality Noted Date [...] mouth every 4 hours as needed. 03/28/2024 Active documented as of this encounter (statuses [...] Next Due Pneumococcal Conjugate Vacci ne, 20-valent ([id number]) 08/02/2022 Pneumococcal Polysaccharide PPV23 (Pneumovax) 07/30/2020,07/23/2007 Seasonal [...] 04/26/2024 11:00 AM EDT Office Visit Family [facility] [address] [facility] [place] [address] Pura Banerjee CRNP [address] [facility] [place] [address] 08/16/2024 11:30 AM EST Office Visit Hematology/Oncology [facility] [address] [facility] [address] Meghan Cristina CRNP [address] [place] [address] 11/05/2024 8:30 AM EST Office Visit Cardiology, [facility] [address] [place] [address] Ian Denny MD [address] [facility] [place] [address] Health Maintenance Due Date Last Done Comments [...] 07/27/2021, Additional history exists GFR 02/14/2025 03/28/2024, 05/06/2024, 01/29/2024, Additional history exists DTaP,Tdap,and Td Vaccines [...] Procedure Name Priority Date/Time Associated Diagnosis Comments CHEMISTRY-OUTSIDE Routine 03/28/2024 documented in this encounter Results * (ABNORMAL) CHEMISTRY-OUTSIDE (03/28/2024) Not all results display below - see scan for full detail OUTSIDE LAB (SEE SCANNED REPORT) Comment:SCAN INCLUDES - CBC, BMP, B12, FOLATE CREATININE-OUTSID E LAB 1.00 0.6 - 1.4 MG/DL OUTSIDE LAB (SEE SCANNED REPORT) EGFR-OUTSIDE LAB 70.8 ML/MIN OUT SIDE LAB (SEE SCANNED REPORT) POTASSIUM-OUTSIDE LAB 5.1 3.5 - 5.1 MMOL/L OUTSIDE LAB (SEE SCANNED REPORT) GLUCOSE-OUTSIDE LAB 152(A) 70 - 99 MG/DL OUTSIDE LAB (SEE SCANNED REPORT) HOURS FASTING OUTSID E LAB (SEE SCANNED REPORT) TRIGLYCERIDES-OUT SIDE LAB OUTSIDE LAB (SEE SCANNED REPORT) CHOLESTEROL-OUTSI DE LAB OUTSIDE LAB (SEE SCANNED REPORT) HDL-OUTSIDE LAB OUTS BELLE LAB (SEE SCANNED REPORT) CHOL/HDL RATIO-OUTSIDE LAB OUTSIDE LA B (SEE SCANNED REPORT) LDL (CALCULATED)-OUTS BELLE LAB OUTSIDE LAB (SEE SCANNED REPORT) LDL (DIRECT MEASURE)-OUTSIDE LAB OUTSIDE LAB (SEE SCANNED REPORT) HEMOGLOBIN, [id number] LAB OUTSIDE LAB (SEE SCANNED REPORT) PHOSPHORUS-OUTSID E LAB OUTSIDE LAB (SEE SCANNED REPORT) PTH-OUTSIDE LAB OUTS BELLE LAB (SEE SCANNED REPORT) MICROALBUMIN RATIO-OUTSIDE LAB OUTSIDE LA B (SEE SCANNED REPORT) PROTEIN, UA-OUTSIDE LAB OUTSIDE LAB (SEE SCANNED REPORT) HGB 11.5(A) 14.0 - 18.0 G/DL OUTSIDE LAB (SEE SCANNED REPORT) 03/28/2024 Joslyn [place]sworth Tessa CHAPMAN LABORATORY OUTSIDE LAB (SEE SCANNED REPORT) documented in this encounter Advance Directives * Full Code (Latest Code Status on File) Date Activated Date Inactivated Comments 07/15/2022 2:11 PM 07/22/2022 4:34 PM This order reflects the patients wishes and were consensually agreed upon. Question Answer Comments Discussion of Advance Directives occurred with: Patient Care Teams Coating Engineer Relationship Specialty Start Date End Date Pura Banerjee CRNP [address] [place] [address] PCP - General Nurse Practitioner 04/09/24 documented as of this encounter
--- OUTSIDE RECORDS SUMMARY | 2024-05-10 16:52 | External Medical Summary | Summary of Care ---
Author Name Unknown Organization [facility] Address [address] [facility] [place] [address] Phone [phone] Care Team Providers Care Salesperson Recreational Vehicles Name Role Phone Pura Banerjee Primary Care Provider Reason for Visit * Reason Onset Date Comments Advice 04/18/2024 Encounter Details Date Type Department Care Team (Late st Contact Info) Description 04/18/[address] [facility] [address] [place] [address] Pura Banerjee CRNP [address] [place] [address] Advice Allergies Active Allergy Reactions Criticality Noted Date Comments Other - Drugs Diarrhea,Nausea/vomiting 10/12/18 99 Dimox documented as of this encounter (statuses as of 04/19/2024) Medications Medication Sig Dispensed Refills Start Date [...] as of this encounter (statuses as of 04/19/2024) Active Problems Problem Noted Date Diagnosed Date [...] as of this encounter (statuses as of 04/19/2024) Resolved Problems Problem Noted Date Diagnosed Date [...] as of this encounter (statuses as of 04/19/2024) Immunizations Name Administration Dates Next Due Pneumococcal Conjugate Vacci ne, 20-valent ([id number]) 08/02/2022 Pneumococcal Polysaccharide PPV23 (Pneumovax) 07/30/2020,07/23/2007 Seasonal [...] encounter Miscellaneous Notes * Telephone Encounter - Jacy Christopher OSA - 04/19/2024 2:52 PM EDT Appt scheduled with pt * Telephone Encounter - Indira Dominguez DO - 04/19/2024 1:30 PM EDT Needs hospital follow up appt Can refill at that time if appropriate Please schedule * Telephone Encounter - Georgette Araya LPN - 04/18/2024 10:02 AM EDT I spoke to patient for a care gaps follow up. Patient is asking for a refill of Oxycodone 5mg. It was prescribed at the hospital when he was discharged for his leg. He said [facility] is [facility] [place] medication [facility]. He does not have a follow up with pcp currently. He has to see his eye doctor tomorrow and he said he will call and schedule it once he sees what they tell him about eye surgery. Please advise. Thank you, Georgette Araya LPN Care Gaps Department documented in this encounter Plan of Treatment Upcoming Encounters Date Type Department Care Team (Late st Contact Info) Description 04/23/2024 2:00 PM EDT Office Visit Family Practice [facility] [address] [place] [address] Erin Marlow DO [address] [place] [address] 08/16/2024 11:30 AM EST Office Visit [facility]ematology/Oncology [facility] [address] [facility] [phone] Meghan Cristina CRNP [address] [place] [address] [place] [address] 11/05/2024 8:30 AM EST Office Visit Cardiology, [facility] [address] [place] [address] Ian Denny MD [address] [place] [address] Health Maintenance Due Date Last Done Comments [...] 07/27/2021, 07/27/2021, Additional history exists GFR 02/14/2025 02/15/2024, 01/08, [...] Advance Directives occurred with: Patient Care Teams Salesperson Recreational Vehicles Relationship Specialty Start Date End Date Pura Banerjee CRNP [address] [place] [address] PCP - General Nurse Practitioner 04/09/24 documented as of this encounter
--- OUTSIDE RECORDS SUMMARY | 2024-05-10 16:52 | External Medical Summary | Summary of Care ---
Author Name Unknown Organization [facility] Address [address] [facility] [place] [address] Phone [phone] Care Team Providers Care Railroad Signal Technician Name Role Phone Pura Banerjee Rochelle CHAPMAN Primary Care Provider Reason for Visit * Reason Comments Follow Up Encounter Details Date Type Department Care Team (Late st Contact Info) Description 04/09/2024 8:30 AM EDT Office Visit Cardiology, [facility] [address] [place] [address] Ian Denny MD [address] [place] [address] Persistent atrial fibrillation (HCC)*; Chronic heart failure with preserved ejection fraction (HCC) Allergies Active Allergy Reactions Criticality Noted Date Comments Other - Drugs Diarrhea,Nausea/vomiting 10/12/18 99 Dimox documented as of this encounter (statuses as of 04/09/2024) Medications Medication Sig Dispensed Refills Start Date [...] as of this encounter (statuses as of 04/09/2024) Active Problems Problem Noted Date Diagnosed Date [...] as of this encounter (statuses as of 04/09/2024) Resolved Problems Problem Noted Date Diagnosed Date [...] as of this encounter (statuses as of 04/09/2024) Immunizations Name Administration Dates Next Due Pneumococcal Conjugate Vacci ne, 20-valent ([id number]) 08/02/2022 Pneumococcal Polysaccharide PPV23 (Pneumovax) 07/30/2020,07/23/2007 Seasonal [...] 04/08/1968 - 04/08/1998 Smokeless Tobacco: Current Snuff Tobacco Cessation:Ready to Q uit: Not Asked; Counseling Given: Not Answered Comments:1/2 can per day Alcohol Use Standard [...] Sign Reading Time Taken Comments Blood Pressure 134/82 04/09/2024 8:33 AM EDT Pulse 76 04/09/2024 8:33 AM EDT Temperature - - Respiratory Rate 12 04/09/2024 8:33 AM EDT Oxygen Saturation - - Inhaled Oxygen Concentration - - Weight 79.4 kg (175 lb) 04/09/2024 8:33 AM EDT Height - - Body Mass Index 27.41 01/29/2024 12:53 PM EDT documented in this encounter Functional [...] as of this encounter Progress Notes * Ian Denny MD - 04/09/2024 8:30 AM EDT 04/08/2024 Cardiology Follow Up Referring Provider: PCP: None Chief Complaint: Follow-up atrial fibrillation/flutter SUBJECTIVE: Anil Peña is a 78 year old year old male with ongoing cardiac issues Longstanding persistent atrial fibrillation/flutter; [id number] score of 4 (age 1, HTN, CHF) on Eliquis Self converted to sinus rhythm 01/2024 (inpatient)-- return of AF per EKG 02/15/2024 (outpatient) Paroxysmal SVT Borderline tachy-jairon syndrome Chronic diastolic CHF COPD on chronic prednisone therapy Chronic peripheral neuropathy Chronic macrocytic anemia; vitamin B12 deficiency Rheumatoid arthritis, on chronic prednisone therapy Patient presents in routine follow-up today. Notes no acute cardiac complaints. Did suffer mechanical fall with injuries to areas left leg currently following with [facility]. No worsening edema, weight gain, worsening shortness of breath, dizziness or lightheadedness. No sense of tachy palpitations Appropriately anticoagulated with Eliquis without overt bleeding other than bruising easily. Skin fragile on chronic prednisone therapy A Complete Review of Systems is as stated above or negative. Patient Active Problem List Diagnosis Encounter for [...] with chronic diastolic congestive heart failure (HCC) Review of patient's allergies indicates: Allergen Reactions Other - Drugs Diarrhea and Nausea/vomiting Dimox Current Outpatient Medications Medication Sig Dispense Refill [...] No current facility-administered medications for this visit. OBJECTIVE/PHYSICAL EXAMINATION: BP 134/82 (BP Site: Left Arm, BP Position: Sitting, BP Cuff Size: Regular) | Pulse 76 | Resp 12 | Wt 79.4 kg (175 lb) | BMI 27.41 kg/m | BSA 1.94 m General: Age appropriate in no acute distress Head: normocephalic, no masses, lesions, tenderness or abnormalities Eyes: conjunctiva are pink and non-injected, sclera clear Throat: clear Nares: without discharge Neck: supple, no adenopathy, normal jugular venous pulse, no hepatojugular reflux, no carotid bruits Chest: normal shape and normal respiratory effort Lungs: clear to auscultation and percussion Cardiac Exam: - regular rate & rhythm, no murmur, gallop or rub - normal S-1, normal S-2 Abdomen: abdomen soft, non-tender, no abnormal masses, no hepatosplenomegaly, no abdominal bruit, no femoral bruit Musculoskeletal: no gait disturbance, no joint inflammation, no deforming arthritis Extremities: no edema, no cyanosis, pulses intact 2+/4 Neuro: grossly normal exam Data: Lipid Panel Results: Results for orders placed or performed in visit on 11/18/02 LIPID PANEL Result Value Ref Range HOURS FASTING 12 hours Triglycerides 122 60 - 290 mg/dL Cholesterol 172 160 - 200 mg/dL HDL Cholesterol 62 (H) 40 - 59 mg/dL Cholesterol-HDL Ratio 2.8 LDL Cholesterol 86 0 - 130 mg/dL Results for orders placed or performed in visit on 02/15/24 LIPID PANEL WITH DIRECT LDL IF TG IS HIGH Result Value Ref Range Triglycerides 112 <=174 mg/dL Cholesterol 120 <200 mg/dL HDL Cholesterol 49 >39 mg/dL Non-HDL Cholesterol 71 <=159 mg/dL LDL Cholesterol 49 <=129 mg/dL Echocardiogram February 02, 2024 Mild left ventricular hypertrophy with normal LV function, EF 55 dash 60% severe left atrial enlargement aortic sclerosis without stenosis Mild mitral insufficiency ASSESSMENT: 78 year old year old male With 1. Longstanding persistent atrial flutter on appropriate anticoagulation and rate control, asymptomatic from cardiac standpoint 2. Compensated chronic heart failure with preserved ejection fraction on chronic diuretic usage. Uses 20 mg per day furosemide. Follow CHF instructions with daily weights and sodium restriction 3. Hypertension well controlled PLAN: Continue current therapies DISPOSITION: Return 6 months Ian Denny MD Cardiology, [address] [place] [address] documented in this encounter Nursing Notes * Jennifer Ohara CMA - 04/09/2024 8:53 AM EDT Examination Room: 13 Name: Anil Peña Date of : (1945). Reason for Visit: f/u Interim Hospitalization(s): [facility] fall Problems/Concerns: Wound on LLE, following with [facility] Chest Pain/SOB: denies [facility] Discussed: No [facility] is a way you can talk to your provider online through e-mail. Would you like to sign up? I can activate it for you? DECLINES Patient was instructed to not get up on the exam table until directed and assisted by their provider; patient is to remain seated in the chair/ wheelchair/ exam table for fall prevention and safety reasons. Patient is aware to have assistance to step down off exam table with personnel. Patient voiced full comprehension of instructions. documented in this encounter Plan of Treatment Upcoming Encounters Date Type Department Care Team (Late st Contact Info) Description 08/16/2024 11:30 AM EST Office Visit Hematology/Oncology [facility] [address] [facility] [phone] Meghan Cristina CRNP [address] [facility] [place] [address] 11/05/2024 8:30 AM EST Office Visit Cardiology, [facility] [address] [place] [address] Ian Denny MD [address] [place] [address] Health Maintenance Due Date Last Done Comments [...] Completed 08/02/2022, 07/30/2020, 11/05/2018, Additional history exists GARDASIL-HPV IMMUNIZATION SERIES Aged [...] as of this encounter Visit Diagnoses Diagnosis Persistent atrial fibrillation (HCC)- Primary Atrial fibrillation Chronic heart failure with preserved ejection fraction (HCC) documented in this encounter Advance Directives * Full Code (Latest Code Status on File) Date Activated Date Inactivated Comments 07/15/2022 2:11 PM 07/22/2022 4:34 PM This order reflects the patients wishes and were consensually agreed upon. Question Answer Comments Discussion of Advance Directives occurred with: Patient Care Teams Railroad Signal Technician Relationship Specialty Start Date End Date Pura Banerjee CRNP [address] [place] [address] PCP - General Nurse Practitioner 04/09/24 documented as of this encounter"
--- OUTSIDE RECORDS SUMMARY | 2024-05-10 16:52 | External Medical Summary | Summary of Care ---
Author Name Unknown Organization [facility] Address [address] [facility] [place] [address] Phone [phone] Care Team Providers Care Mirror Specialist Name Role Phone Pura Banerjee Primary Care Provider Reason for Visit * Reason Onset Date Comments Advice 04/18/2024 Encounter Details Date Type Department Care Team (Late st Contact Info) Description 04/18/[address] [facility] [address] [place] [address] Pura Banerjee CRNP [address] [place] [address] Advice Allergies Active Allergy Reactions Criticality Noted [...] 04/19/2024) Immunizations Name Administration Dates Next Due Influenza, Whole Virus 07/09/2000,07/26/1999 Pneumococcal Conjugate Vacci ne, 20-valent ([id number]) 08/02/2022 Pneumococcal Conjugate Vacci ne, 7 Valent [...] encounter Miscellaneous Notes * Telephone Encounter - Julianne Holden OSA - 04/19/2024 3:18 PM EDT Pts son called to r/s pts appt due to no transportation on 04.23.24-pt rescheduled for 04.26.24 * Telephone Encounter - Jacy Christopher OSA [...] said [facility] [place] It is listed on his medication list. [...] 11:00 AM EDT Office Visit Family Practice [facility] [address] [place] [address] Pura Banerjee CRNP [address] [place] [address] 08/16/2024 11:30 AM EST Office Visit Hematology/Oncology [facility] [address] [place] [phone] Meghan Cristina CRNP [address] [facility] [place] [address] 11/05/2024 8:30 AM EST Office Visit Cardiology, [facility] [place] [address] Ian Denny MD 132 [facility] [place] [address] Health Maintenance Due Date Last Done Comments [...] Advance Directives occurred with: Patient Care Teams Mirror Specialist Relationship Specialty Start Date End Date Pura Banerjee CRNP [address] [place] [address] PCP - General Nurse Practitioner 04/09/24 documented as of this encounter
--- OUTSIDE RECORDS SUMMARY | 2024-05-10 16:52 | External Medical Summary | Summary of Care ---
Author Name Unknown Organization [facility] Address [address] [facility] [place] [address] Phone [phone] Care Team Providers Care Food Service Employee Name Role Phone Pura Banerjee Primary Care Provider Reason for Visit * Reason Onset Date Comments Health Maintenance 04/18/2024 Encounter Details Date Type Department Care Team (Late st Contact Info) Description 04/18/2024 Telephone Family Practice [facility] [address] [place] [address] Pura Banerjee CRNP [address] [place] [address] Health Maintenance Allergies Active Allergy Reactions Criticality Noted Date Comments Other - Drugs Diarrhea,Nausea/vomiting 10/12/18 99 Dimox documented as of this encounter (statuses as of 04/18/2024) Medications Medication Sig Dispensed Refills Start Date [...] as of this encounter (statuses as of 04/18/2024) Active Problems Problem Noted Date Diagnosed Date [...] as of this encounter (statuses as of 04/18/2024) Resolved Problems Problem Noted Date Diagnosed Date [...] as of this encounter (statuses as of 04/18/2024) Immunizations Name Administration Dates Next Due Pneumococcal Conjugate Vacci ne, 20-valent ([id number]) 08/02/2022 Pneumococcal Polysaccharide PPV23 (Pneumovax) 07/30/2020,07/23/2007 Seasonal [...] encounter Miscellaneous Notes * Telephone Encounter - Georgette Araya LPN - 04/18/2024 9:52 AM EDT Care Gaps Comprehensive Care Outreach Last Office/Telemedicine Visit: 03/15/2024 (in office), Visit date not found (telemedicine) Next Office Visit: Visit date not found Hemoglobin AIC Results: Lab Results Component Value Date/Time HEMOGLOBIN A1C - [facility] 6.9 (H) 03/29/2023 09:46 AM HEMOGLOBIN A1C - [facility] 5.4 05/04/2005 02:54 PM BP Readings from Last 1 Encounters: 04/09/24 134/82 Reviewed Health Maintenance below: Health Maintenance Topic Date Due COVID-19 Vaccine (1) Never done Albumin/Creatinine Ratio Never done Diabetic Foot Exam Never done Zoster Vaccines (1 of 2) Never done DXA Scan 11/04/2016 HbA1c 09/28/2023 Depression Screening 01/11/2024 Diabetic Eye Exam 05/22/2024 Influenza Vaccine (FLU shot) (1) 06/09/2024 [facility] requested Dexa Has an eye appt tomorrow. He said he would call back to schedule after this appt. Care Gap Outreach Action Taken: Spoke to patient documented in this encounter Plan of Treatment Upcoming Encounters Date Type Department Care Team (Late st Contact Info) Description 08/16/2024 11:30 AM EST Office Visit Hematology/Oncology [facility] [address] [facility] [address] [place] [phone] Meghan Cristina CRNP [address] [place] [address] [place] [address] 11/05/2024 8:30 AM EST Office Visit Cardiology, [facility] [address] [place] [address] Ian Denny MD [address] [place] [address] Health Maintenance Due Date Last Done Comments [...] Advance Directives occurred with: Patient Care Teams Food Service Employee Relationship Specialty Start Date End Date Pura Banerjee CRNP [address] [place] [address] PCP - General Nurse Practitioner 04/09/24 documented as of this encounter
[2024-05-10] MEDS: SODIUM CHLORIDE 0.9% 1,000 ML IV SCH (17:09)
[2024-05-10] MEDS: DOXYCYCLINE HYCLATE 100 MG in DEXTROSE 5% MINI-B 100 ML IV SCH (17:13)
[2024-05-10] MEDS: ALBUT/IPRATROP 3MG/0.5MG NEB 3 ML VIAL NEB SCH (17:18)
[2024-05-10 19:40] LABS: Hematocrit (blood only) 33.8 % (42.0-52.0); Hemoglobin 10.9 g/dl (14.0-18.0)
[2024-05-10 20:19] LABS: Appearance Urine Clear (Clear); Bacteria Urine Automated None Seen (None Seen); Bilirubin Urine Negative (Negative); Blood Urine 1+ (Negative); Cast Urine Automated 0-2 /lpf (0-2); Color Urine Yellow; Epithelial Cell Urine Auto 0-2 /hpf (0-2); Glucose Urine UA Trace (Negative); Ketones Urine Trace (Negative); Leukocyte Esterase Urine Negative (Negative); Nitrite Urine Negative (Negative); Protein Urine Negative (Negative); Specific Gravity Urine > 1.045 (1.000-1.030); Urobilinogen Urine Negative (Negative); WBC Urine Automated 0-5 /hpf (0-5)
[2024-05-10] MEDS: GABAPENTIN 300 MG CAP PO SCH (20:21)
[2024-05-10] MEDS: ACETAMINOPHEN 325 MG TAB PO PRN (20:21)
[2024-05-10] MEDS: METOPROLOL SUCC 50MG EXT REL TAB PO SCH (20:22)
[2024-05-10] MEDS: predniSONE 5 MG TAB PO SCH (20:22)
--- NOTE | 2024-05-10 23:13 | Electrocardiogram Report ---
Test Reason : Blood Pressure : / mmHG Vent. Rate : 096 BPM Atrial Rate : 000 BPM P-R Int : 000 ms QRS Dur : 068 ms QT Int : 330 ms P-R-T Axes : 000 038 -67 degrees QTc Int : 416 ms Atrial fibrillation Nonspecific ST and T wave abnormality Abnormal ECG When compared with ECG of 31-JAN-2024 19:10, Nonspecific T wave abnormality now evident in Anterior leads Confirmed by Mikey Valente ([id number]) on 05/10/2024 11:12:44 PM Referred By: Confirmed By:Mikey Valente
[2024-05-11] MEDS: oxyCODONE HCL IR 5 MG TAB (IMMEDIATE RELEASE) PO PRN (05:03)
[2024-05-11 06:02] LABS: Basophils # (auto) 0.02 K/uL (0.00-0.20); Basophils % (auto) 0.2 %; Eosinophils # (auto) 0.04 K/uL (0.00-0.50); Eosinophils % (auto) 0.4 %; Hematocrit (blood only) 33.4 % (42.0-52.0); Hemoglobin 10.5 g/dl (14.0-18.0); Immature Granulocytes # (auto) 0.11 K/uL (0.01-0.20); Immature Granulocytes % (auto) 1.1 %; Lymphocytes # (auto) 1.16 K/uL (1.20-3.40); Lymphocytes % (auto) 11.7 %; Mean Corpuscular Hemoglobin 33.4 pg (25.0-34.0); Mean Corpuscular Hgb Conc 31.4 g/dL (32.0-36.0); Mean Corpuscular Volume 106.4 fL (80.0-100.0); Mean Platelet Volume 12.1 fL (9.4-12.4); Monocytes # (auto) 0.94 K/uL (0.11-0.59); Monocytes % (auto) 9.5 %; Neutrophils # (auto) 7.65 K/uL (1.40-6.50); Neutrophils % (auto) 77.1 %; Platelet Count 129 K/uL (130-400); RDW Coefficient of Variation 16.6 % (11.5-14.5); RDW Standard Deviation 65.1 fL (36.4-46.3); Red Blood Count 3.14 M/uL (4.70-6.10); White Blood Count 9.92 K/ul (4.8-10.8)
[2024-05-11 06:38] LABS: Albumin Globulin Ratio 1.6 (0.9-2); Albumin Level 3.7 gm/dl (3.4-5.0); BUN Creatinine Ratio 28.7 (10-20); Bilirubin,Total 0.8 mg/dl (0.2-1.0); Calcium 8.3 mg/dl (8.6-10.3); Creatinine Clr Calc Pharmacy 69.7 ml/min; Est GFR (African American) 94.5 ml/min; Est GFR (Non-African American) 81.5 ml/min; Globulin 2.3 gm/dl (2.5-4.0); Magnesium 2.2 mg/dl (1.7-2.4); Phosphorus 3.2 mg/dl (2.5-4.9); Potassium 4.7 mmol/L (3.5-5.1)
[2024-05-11] MEDS: CHOLECALCIFEROL 25 MCG (1000 UNITS) TAB PO SCH (08:07)
[2024-05-11] MEDS: PANTOprazole 40 MG TAB PO SCH (08:07)
[2024-05-11] MEDS: ROSUVASTATIN CALCIUM 20 MG TAB PO SCH (08:07)
[2024-05-11] MEDS: SPIRONOLACTONE 25 MG TAB PO SCH (08:07)
[2024-05-11] MEDS: FINASTERIDE 5 MG TAB PO SCH (08:08)
[2024-05-11] MEDS: CYANOCOBALAMIN (B-12) 500 MCG TABLET PO SCH (08:08)
[2024-05-11] MEDS: FLUTICASONE/VILANTEROL 100/25MCG 14 PUFFS/INHALER INH SCH (08:08)
[2024-05-11] MEDS: FUROSEMIDE 40 MG TAB PO SCH (08:08)
[2024-05-11] MEDS ORDERED: METOPROLOL TARTRATE 1 MG/ML VIAL IV PRN (10:01)
[2024-05-11] MEDS: METOPROLOL TARTRATE 1 MG/ML VIAL IV PRN (10:14)
--- NOTE | 2024-05-11 12:37 | Hospitalist Progress Note ---
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 VBG w/ pH 7.41, pCO2 29 & HCO3 18. CXR: i. Cardiomegaly with mild interstitial pulmonary edema and trace bilateral pleural effusions. This has slightly progressed in the interval. ii. Calcified pleural plaques again noted. Chest CTA: i. No evidence for pulmonary embolus. ii. Cardiomegaly with mild interstitial thickening and trace bilateral pleural effusions. This may represent mild congestive change. iii. Scattered calcified pleural plaques and pericardial calcifications again noted. This is consistent with asbestos-related disease. iv. Mild emphysema. v. Multifocal scattered patchy groundglass and irregular nodular densities seen within the lungs most pronounced within the right lower lobe. This has progressed within the right lower lobe and left upper lobe and favors an atypical pneumonitis. Got IV fluids in ER Continue IV ceftriaxone and doxycycline Continue nebs, flutter valve and incentive spirometry. Continue supportive care pH is normal. Lactate seem persistently elevated Persistent Atrial Fibrillation With Rapid Ventricular response today Likely due to infection above Gave extra dose of metoprolol tartarate this afternoon Was on Eliquis & metoprolol succinate [address] [facility] MAGISTRATE; Will continue metoprolol succinate, Plan to resume eliquis in AM if Hb remains stable and no more hemoptysis Open Wounds of LLE & RLE Pt w/ multiple skin tears and wounds of both legs during previous admission in March. Pt closely following w/ [facility] as outpatient; Continue wound care COPD On [place] [address] [facility] MAGISTRATE, can continue. Heart Failure w/ Preserved EF BNP 278 on admission; CXR w/ mild interstitial pulmonary edema and trace bilateral pleural effusions. Echo last performed on 02/02/24 noted mild concentric LVH, LVEF = 55-60%, Severely dilated left atrium, moderate aortic valve sclerosis & moderate mitral regurgitation. On furosemide & spironolactone [address] [facility] MAGISTRATE Continuous cardiac monitoring in place. Monitor closely for signs/symptoms of fluid overload Rheumatoid Arthritis On chronic prednisone therapy [facility] MAGISTRATE - will continue; Pt also on gabapentin, will continue. Hyperglycemia Type II Diabetes Mellitus Pt currently on chronic prednisone therapy 2/2 RA. Hgb A1c 7.5 on 03/26/24, BSG 230 on admission; Diet-controlled ISS per protocol Chronic Macrocytic Anemia Stable, Hgb 12.1 on admission; Baseline Hgb 11-13 per chart review. Hb stable in 10s BPH w/ LUTS: On finasteride [facility] MAGISTRATE Continue. Hyperlipidemia: On statin therapy [facility] MAGISTRATE Continue. GERD: On pantoprazole [facility] COURT MAGISTRATE Continue DVT Prophylaxis: CIRCUIT COURT MAGISTRATE Eliquis on hold for now 2/2 presenting hemoptysis. Code Status: FULL CODE PCP: [facility] Patient's son, Kendrick (#[phone]). I spent a total of 50 minutes coordinating, documenting and providing care for this patient excluding time spent in performance of separately billed services Admission and Anticipated Discharge Date Admission Date: May 10, 2024 Subjective Patient seen and examined Reports cough and SOB are improving No hemoptysis today Denied fever, chills, nausea, vomiting, abd pain,diarrhea today Son at bedside Reports chronic leg wound was dressed yesterday Physical Exam Constitutional: + well hydrated; no acute distress Eyes: PERRL, conjunctivae normal, anicteric sclerae ENMT: external ear and nose normal, oropharynx normal Respiratory: Not in resp distress Few crackles. Cardiovascular: Rate/Rhythm: + tachycardic and + irregularly irregular S1 S2 Gastrointestinal (Abdomen): normal bowel sounds, soft, nontender, no hepatosplenomegaly Musculoskeletal: Dressing over left leg Neurologic: PERRL, EOMI, accommodation nl, no face palsy, no dysarthria Psychiatric: A+Ox3, euthymic affect Results & Data Results & Data Vital Signs (Past 12 Hours) Vital Signs Temp Pulse Pulse Resp BP BP Pulse Ox 05/11/24 11:46 106 H 18 96 05/11/24 10:57 36.5 C 108 H 18 141/73 H 93 05/11/24 10:29 111 H 05/11/24 10:14 115 H 05/11/24 08:00 05/11/24 07:52 36.4 C L 125 H 18 109/65 95 05/11/24 07:24 123 H 05/11/24 06:58 98 H 16 96 05/11/24 03:30 36.5 C 103 H 18 136/80 95 05/11/24 03:12 95 H 18 96 O2 Del Method 05/11/24 11:46 Room Air 05/11/24 10:57 Room Air 05/11/24 10:29 05/11/24 10:14 05/11/24 08:00 Room Air 05/11/24 07:52 Room Air 05/11/24 07:24 05/11/24 06:58 Room Air 05/11/24 03:30 Room Air 05/11/24 03:12 Room Air (3) Pneumonia Pneumonia type: aspiration pneumonia
[2024-05-11] MEDS: cefTRIAXone SODIUM 2,000 MG/50 ML BAG IV SCH (13:40)
[2024-05-11] MEDS: METOPROLOL TARTRATE 25 MG TAB PO STA (14:54)
[2024-05-11] MEDS ORDERED: ALBUT/IPRATROP 3MG/0.5MG NEB 3 ML VIAL NEB PRN (16:13)
[2024-05-11] MEDS ORDERED: GLUCOSE 10 TAB/TUBE PO PRN (16:25)
[2024-05-11] MEDS ORDERED: GLUCOSE 40% GEL 15 GM TUBE PO PRN (16:25)
[2024-05-11] MEDS ORDERED: DEXTROSE 50% 50 ML SYRINGE IV PRN (16:25)
[2024-05-11] MEDS ORDERED: GLUCAGON FOR INJ 1 MG VIAL SQ PRN (16:25)
[2024-05-11] MEDS ORDERED: CARBOHYDRATES FOR HYPOGLYCEMIA PO PRN (16:25)
[2024-05-11] MEDS: INSULIN ASPART PER UNIT CHARGE SC SCH (17:30)
[2024-05-11] MEDS ORDERED: APIXABAN 5 MG TABLET PO SCH (21:00)
[2024-05-12 05:13] LABS: Hematocrit (blood only) 31.8 % (42.0-52.0); Hemoglobin 10.3 g/dl (14.0-18.0); Mean Corpuscular Hemoglobin 33.9 pg (25.0-34.0); Mean Corpuscular Hgb Conc 32.4 g/dL (32.0-36.0); Mean Corpuscular Volume 104.6 fL (80.0-100.0); Mean Platelet Volume 12.5 fL (9.4-12.4); Platelet Count 134 K/uL (130-400); RDW Coefficient of Variation 16.5 % (11.5-14.5); RDW Standard Deviation 63.5 fL (36.4-46.3); Red Blood Count 3.04 M/uL (4.70-6.10); White Blood Count 11.88 K/ul (4.8-10.8)
[2024-05-12 05:27] LABS: BUN Creatinine Ratio 29.2 (10-20); Calcium 8.6 mg/dl (8.6-10.3); Creatinine Clr Calc Pharmacy 68.1 ml/min; Est GFR (African American) 93.6 ml/min; Est GFR (Non-African American) 80.8 ml/min; Magnesium 2.1 mg/dl (1.7-2.4); Phosphorus 2.9 mg/dl (2.5-4.9); Potassium 4.2 mmol/L (3.5-5.1)
[2024-05-12] MEDS: APIXABAN 5 MG TABLET PO SCH (08:44)
--- NOTE | 2024-05-12 11:17 | Hospitalist Progress Note ---
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 VBG w/ pH 7.41, pCO2 29 & HCO3 18. CXR: i. Cardiomegaly with mild interstitial pulmonary edema and trace bilateral pleural effusions. This has slightly progressed in the interval. ii. Calcified pleural plaques again noted. Chest CTA: i. No evidence for pulmonary embolus. ii. Cardiomegaly with mild interstitial thickening and trace bilateral pleural effusions. This may represent mild congestive change. iii. Scattered calcified pleural plaques and pericardial calcifications again noted. This is consistent with asbestos-related disease. iv. Mild emphysema. v. Multifocal scattered patchy groundglass and irregular nodular densities seen within the lungs most pronounced within the right lower lobe. This has progressed within the right lower lobe and left upper lobe and favors an atypical pneumonitis. Got IV fluids in ER Continue IV ceftriaxone and doxycycline Continue nebs, flutter valve and incentive spirometry. Continue supportive care pH is normal. Lactate seem persistently elevated. Recheck Persistent Atrial Fibrillation RVR has resolved Rate controlled today Was on Eliquis & metoprolol succinate EMPLOYMENT COUNSELOR; Will continue metoprolol succinate, Hb stable Eliquis resumed this morning. Monitor Open Wounds of LLE & RLE Pt w/ multiple skin tears and wounds of both legs during previous admission in March. Pt closely following w/ [facility] as outpatient; Continue wound care COPD On Wixela EMPLOYMENT COUNSELOR, can continue. Heart Failure w/ Preserved EF BNP 278 on admission; CXR w/ mild interstitial pulmonary edema and trace bilateral pleural effusions. Echo last performed on 02/02/24 noted mild concentric LVH, LVEF = 55-60%, Severely dilated left atrium, moderate aortic valve sclerosis & moderate mitral regurgitation. On furosemide & spironolactone EMPLOYMENT COUNSELOR Continuous cardiac monitoring in place. Monitor closely for signs/symptoms of fluid overload Rheumatoid Arthritis On chronic prednisone therapy EMPLOYMENT COUNSELOR - will continue; Pt also on gabapentin, will continue. Hyperglycemia Type II Diabetes Mellitus Pt currently on chronic prednisone therapy 2/2 RA. Hgb A1c 7.5 on 03/26/24, BSG 230 on admission; Diet-controlled ISS per protocol Chronic Macrocytic Anemia Stable, Hgb 12.1 on admission; Baseline Hgb 11-13 per chart review. Hb stable in 10s BPH w/ LUTS: On finasteride EMPLOYMENT COUNSELOR Continue. Hyperlipidemia: On statin therapy EMPLOYMENT COUNSELOR Continue. GERD: On pantoprazole EMPLOYMENT COUNSELOR Continue DVT Prophylaxis: EMPLOYMENT COUNSELOR Eliquis on hold for now 2/2 presenting hemoptysis. Code Status: FULL CODE PCP: [facility] Patient's son, Kendrick (#[phone]). I spent a total of 40 minutes coordinating, documenting and providing care for this patient excluding time spent in performance of separately billed services Admission and Anticipated Discharge Date Admission Date: May 10, 2024 Subjective Patient seen and examined Reports cough and SOB are improving Hemoptysis have resolved Denied fever, chills, nausea, vomiting, abd pain,diarrhea today HR is better controlled today Physical Exam Constitutional: + well hydrated; no acute distress Eyes: PERRL, conjunctivae normal, anicteric sclerae ENMT: external ear and nose normal, oropharynx normal Respiratory: Not in resp distress, Good air entry today. No wheezing Cardiovascular: Rate/Rhythm: regular rate and + irregularly irregular Gastrointestinal (Abdomen): normal bowel sounds, soft, nontender, no hepatosplenomegaly Musculoskeletal: Left leg covered in dressing Pedal edema Neurologic: PERRL, EOMI, accommodation nl, no face palsy, no dysarthria Psychiatric: A+Ox3, euthymic affect Results & Data Results & Data Vital Signs (Past 12 Hours) Vital Signs Temp Pulse Pulse Resp BP BP Pulse Ox 05/12/24 08:06 05/12/24 08:01 36.7 C 103 H 20 108/73 94 05/12/24 07:05 87 05/12/24 02:37 36.6 C 107 H 18 128/84 91 O2 Del Method 05/12/24 08:06 Room Air 05/12/24 08:01 Room Air 05/12/24 07:05 05/12/24 02:37 Room Air Laboratory Results Abnormal lab results 05/11/24 05/11/24 05/12/24 Range/Units 16:39 19:59 04:28 WBC 11.88 H (4.8-10.8) K/ul RBC 3.04 L (4.70-6.10) M/uL Hgb 10.3 L (14.0-18.0) g/dl Hct 31.8 L (42.0-52.0) % MCV 104.6 H (80.0-100.0) fL RDW Std Deviation 63.5 H (36.4-46.3) fL RDW Coeff of Roxanna 16.5 H (11.5-14.5) % MPV 12.5 H (9.4-12.4) fL Sodium 132 L (136-145) mmol/L BUN 26 H (6-23) mg/dl BUN/Creatinine Ratio 29.2 H (10-20) Glucose 182 H (70-99(Fasting)) mg/dl POC Glucose 224 H 154 H (70-99) mg/dl 05/12/24 Range/Units 07:31 WBC (4.8-10.8) K/ul RBC (4.70-6.10) M/uL Hgb (14.0-18.0) g/dl Hct (42.0-52.0) % MCV (80.0-100.0) fL RDW Std Deviation (36.4-46.3) fL RDW Coeff of Roxanna (11.5-14.5) % MPV (9.4-12.4) fL Sodium (136-145) mmol/L BUN (6-23) mg/dl BUN/Creatinine Ratio (10-20) Glucose (70-99(Fasting)) mg/dl POC Glucose 142 H (70-99) mg/dl (3) Pneumonia Pneumonia type: aspiration pneumonia
[2024-05-13 03:30] VITALS: TEMP 97.5
[2024-05-13 07:39] LABS: Hematocrit (blood only) 33.7 % (42.0-52.0); Hemoglobin 11.2 g/dl (14.0-18.0); Mean Corpuscular Hemoglobin 34.1 pg (25.0-34.0); Mean Corpuscular Hgb Conc 33.2 g/dL (32.0-36.0); Mean Corpuscular Volume 102.7 fL (80.0-100.0); Mean Platelet Volume 12.3 fL (9.4-12.4); Platelet Count 162 K/uL (130-400); RDW Standard Deviation 60.5 fL (36.4-46.3); Red Blood Count 3.28 M/uL (4.70-6.10); White Blood Count 9.65 K/ul (4.8-10.8)
[2024-05-13 07:58] VITALS: RESP 18; O2SAT 97
[2024-05-13 08:57] LABS: Calcium 8.7 mg/dl (8.6-10.3); Magnesium 2.3 mg/dl (1.7-2.4); Potassium 3.8 mmol/L (3.5-5.1)
[2024-05-13 09:03] LABS: BUN Creatinine Ratio 39.4 (10-20); Creatinine Clr Calc Pharmacy 85.7 ml/min; Est GFR (African American) 102.7 ml/min; Est GFR (Non-African American) 88.6 ml/min; Phosphorus 3.1 mg/dl (2.5-4.9)
[2024-05-13 11:46] VITALS: PULSE 106
--- NOTE | 2024-05-13 13:29 | Discharge Summary ---
Date of Service May 13, 2024 Admission HPI Per Admitting Provider Anil Peña is an 78y/o M with PMHx of dyslipidemia, diet-controlled type 2 DM, history of SVT, ascending aorta enlargement, chronic heart failure with preserved ejection fraction, longstanding persistent atrial fibrillation [on Eliquis], aneurysm of the ascending aorta without rupture, HTN, BPH with obstruction/LUTS, polyneuropathy, rheumatoid arthritis on chronic use of systemic steroids, COPD and other problems listed below who presented to the ED for evaluation secondary to shortness of breath and hemoptysis. History obtained from patient, son at bedside and associated chart review. Son reports that the patient woke up this morning and felt very short of breath and started coughing up dark blood-tinged sputum. Patient reports coughing up bloody sputum approximately 4 times this morning. He denies any recent illnesses, fevers or known sick contacts. Patient is on Eliquis for history of persistent atrial fibrillation. Patient was seen by home health today for his lower extremity wound care [as documented in his previous hospitalization here at [facility] in March] and the nurse was concerned that the patient's lungs sounded "wet." Patient was also tachycardic according to the home health nurse with a heart rate of approximately 146 bpm - therefore, the home health nurse insisted the patient go to the ER for further work-up. Patient denies any chest pain or history of DVT/PE. He does report persistent lower extremity swelling and edema, which is unchanged from his baseline. Patient does take furosemide and spironolactone at home daily. He was feeling short of breath this morning. His son reports that he was having increased shortness of breath with exertion - patient could not even walk 5 to 10 feet without stopping for a break. Patient does report that he has had some minor sinus congestion for the last few days, but "otherwise feels fine." The patient was initially reluctant to come to the ED for evaluation, but his son insisted that he get checked out. Admission Exam Per Admitting Provider General: WD/WN, vitals as above, NAD, sitting up in bed, some conversational dyspnea noted. A+Ox3, euthymic affect. HEENT: Normocephalic, atraumatic. PERRL, conjunctivae normal, anicteric sclerae. External ear and nose normal, oropharynx slightly dry. Respiratory: Normal respiratory effort, crackles heard in b/l lower lung mcbride (R>L). No accessory muscle use. Cardiovascular: Irregular rate, rhythm, no murmur, normal peripheral pulses. +1 pitting edema in b/l lower extremities. Abdomen/GI: Normal bowel sounds, soft, nontender, no hepatosplenomegaly. Extremities/Musculoskeletal: No cyanosis or clubbing, extremities motor strength intact, moves all extremities. Neurologic: EOMI, accommodation nl, no face palsy, no dysarthria, CN's II-XI not formally tested but appear grossly intact bilaterally. Skin: Normal color, warm/dry. Dressings intact over bilateral lower extremities, did not visualize wounds directly [pt did not want bandaging removed]. Principal Diagnosis Sepsis Pneumonia Rhinovirus infection Discharge Exam Constitutional + well hydrated; no acute distress Eyes PERRL, conjunctivae normal, anicteric sclerae ENMT external ear and nose normal, oropharynx normal Respiratory normal respiratory effort, lungs clear to auscultation Cardiovascular Rate/Rhythm: regular rate and + irregularly irregular Gastrointestinal (Abdomen) normal bowel sounds, soft, nontender, no hepatosplenomegaly Musculoskeletal Dressing over left leg. +pedal edema Neurologic PERRL, EOMI, accommodation nl, no face palsy, no dysarthria Psychiatric A+Ox3, euthymic affect Discharge Data Allergies Allergy/AdvReac Type Severity Reaction Status Date / Time No Known Allergies Allergy Verified 05/10/24 14:55 Consultations 05/10/24 14:33 ED Decision to Admit Stat Ordered Studies 05/10/24 12:13 CT angio chest PE protocol Stat Hospital Course (1) Hemoptysis: (2) Rhinovirus infection: (3) Pneumonia: (4) Sepsis: Plan 78y/o M with PMHx of dyslipidemia, diet-controlled type 2 DM, history of SVT, ascending aorta enlargement, chronic heart failure with preserved ejection fraction, longstanding persistent atrial fibrillation, aneurysm of the ascending aorta without rupture, HTN, BPH with obstruction/LUTS, polyneuropathy, rheumatoid arthritis on chronic use of systemic steroids, COPD and other problems who presented to the ED for evaluation secondary to shortness of breath and hemoptysis and was found to have rhinovirus a Sepsis Rhinovirus infection Pneumonia Met sepsis criteria with tachycardia, WBC >12K, present source of infection & persistent elevated lactic acid On admission, WBC 16.92, lactate 3.9; RVP positive for enterovirus/rhinovirus. VBG w/ pH 7.41, pCO2 29 & HCO3 18. CXR: i. Cardiomegaly with mild interstitial pulmonary edema and trace bilateral pleural effusions. This has slightly progressed in the interval. ii. Calcified pleural plaques again noted. Chest CTA: i. No evidence for pulmonary embolus. ii. Cardiomegaly with mild interstitial thickening and trace bilateral pleural effusions. This may represent mild congestive change. iii. Scattered calcified pleural plaques and pericardial calcifications again noted. This is consistent with asbestos-related disease. iv. Mild emphysema. v. Multifocal scattered patchy groundglass and irregular nodular densities seen within the lungs most pronounced within the right lower lobe. This has progressed within the right lower lobe and left upper lobe and favors an atypica l pneumonitis. Got IV fluids in ER Managed with IV ceftriaxone and doxycycline Continue nebs, flutter valve and incentive spirometry. Discharged on po Augmentin and doxycycline to complete treatment Persistent Atrial Fibrillation Had RVR for the first 48h of admission Rate is not controlled on home med Was on Eliquis & metoprolol succinate COSMETIC COUNSELOR; Eliquis was initially held the first day due to hemoptysis and resumed inpt once Hb remained stable Hemoptysis resolved Open Wounds of LLE & RLE Pt w/ multiple skin tears and wounds of both legs during previous admission in March. Pt closely following w/ [facility] as outpatient; Continue wound care COPD On Wixela COSMETIC COUNSELOR, can continue. Heart Failure w/ Preserved EF BNP 278 on admission; CXR w/ mild interstitial pulmonary edema and trace bilateral pleural effusions. Echo last performed on 02/02/24 noted mild concentric LVH, LVEF = 55-60%, S everely dilated left atrium, moderate aortic valve sclerosis & moderate mitral regurgitation. On furosemide & spironolactone COSMETIC COUNSELOR Continuous cardiac monitoring in place. Rheumatoid Arthritis On chronic prednisone therapy COSMETIC COUNSELOR Pt also on gabapentin, will continue. Hyperglycemia Type II Diabetes Mellitus Pt currently on chronic prednisone therapy 2/2 RA. Hgb A1c 7.5 on 03/26/24, BSG 230 on admission; Diet-controlled Chronic Macrocytic Anemia Stable, Hgb 12.1 on admission; Baseline Hgb 11-13 per chart review. Hb stable BPH w/ LUTS: On finasteride COSMETIC COUNSELOR Continue. Hyperlipidemia: On statin therapy COSMETIC COUNSELOR Continue. GERD: On pantoprazole COSMETIC COUNSELOR Continue I called son and updated him Total Time Total Time Spent Total Time Spent (In Minutes): 35 Total Time Includes: Examination of the Patient, Discharge Planning, Medication Reconciliation and Other Discharge Plan Discharge Items Patient Disposition: Home - Self-Care Reason For Visit: HEMOPTYSIS Discharge Diagnosis: Sepsis Pneumonia Rhinovirus infection Activity: Resume your previous activity Non-emergency contact: Primary Care Provider Call non-emergency contact if: you have any medication questions and your symptoms worsen Follow-up/Referrals: Pura Banerjee CRNP [Family Provider] - (05/16/2024: 2.20PM) [facility] [Primary Care Provider] - Diet: Heart Healthy and Low Sodium (2gm) Addtl Attending Provider Instructions: Mr Peña You came to the hospital coughing up bloody sputum You were evaluted and managed for the above listed diagnoses. You are being discharged on antibiotics for a few days Please ensure follow up with your Primary Doctor and Wound care clinic. It was a pleasure taking care of you. Pending Studies at Discharge: No Stand-Alone Forms: [facility], Smoking Cessation Medications and DC Order Prescriptions: New amoxicillin-pot clavulanate 875-125 mg tablet 1 tab PO BID 2 Days Qty: 4 0RF doxycycline hyclate 100 mg tablet 100 mg PO BID 2 Days Qty: 4 0RF Continued prednisone 5 mg Tablet 5 mg PO BID spironolactone 25 mg Tablet 25 mg PO DAILY gabapentin 300 mg Capsule 300 mg PO BID finasteride 5 mg Tablet 5 mg PO DAILY cholecalciferol (vitamin D3) [Vitamin D3] 25 mcg (1,000 unit) Tablet 50 mcg PO DAILY apixaban 5 mg Tablet 5 mg PO BID pantoprazole 40 mg Tablet,Delayed Release (Dr/Ec) 40 mg PO DAILY cyanocobalamin (vitamin B-12) [Vitamin B-12] 1,000 mcg Tablet 1,000 mcg PO DAILY fluticasone propion-salmeterol [Wixela Inhub] 500-50 mcg/dose Blister With Device 1 inh INHALATION BID furosemide 40 mg Tablet 40 mg PO QAM Qty: 30 1RF metoprolol succinate 50 mg Tablet Extended Release 24 Hr 50 mg PO BID Qty: 60 1RF rosuvastatin 20 mg Tablet 20 mg PO DAILY oxycodone 5 mg Tablet 5 mg PO Q4H PRN (Reason: pain) Qty: 30 0RF Discharge Orders: Discharge Order (Routine); Ordered 05/13/24 Ordered By: Opal Morales Admission Data Admit Date/Time: 05/10/24 14:41 Attending Provider: Opal Morales I. Admit Provider: Reinaldo Gimenez Primary Care Provider: [facility] Other Providers: Reinaldo Gimenez Other Interventions: Discharge Summary Assessment (RN) Last Done: 05/13/24 13:31
[2024-05-13 13:32] VITALS: BP 109/68
--- NOTE | 2024-05-14 09:56 | Coding Query ---
CODING QUERY To promote full compliance with coding requirements relating to patient care, provider participation is requested in all cases of sawyer helper uncertainty. Please assist us with the question(s) below: Coding Question(s): Can you please specify the cause of the patient's sepsis by putting an 'x' in the parenthesis below? Sepsis due to Rhinovirus ( ) Sepsis due to Pneumonia (x ) Other Sepsis, please specify if possible ( ) Sepsis due to unknown/unspecified organism ( ) Physician's Response(s): Thank you Erin Rodriguez Principal Diagnosis: "that condition established after study, to be chiefly responsible for occasioning the admission of the patient to the hospital for care." Co-Existing Principal Diagnosis: "when two or more diagnoses equally meet the criteria for principal diagnosis as determined by the circumstances of admission, diagnostic work up, and/or therapy provided, and the Alphabetic Index, Tabular List, or another coding guideline does not provide sequencing direction, any one of the diagnoses may be sequenced first." "When the physician has documented what appears to be a current diagnosis in the body of the record, but has not included the diagnosis in the final diagnostic statement, the physician should be asked whether the diagnosis should be added." (Source Coding [facility] 2 QTR90. p3-4) [facility]
== END 2024-05-13 13:51 | disposition home or self-care (01) | DRG 871 ==
LOC: ED 11:56 → SUATTDRO 14:41 → 4W 14:41

== ENCOUNTER 2024-07-31 09:46 | Inpatient (IN) ==
--- NOTE | 2024-07-31 10:06 | Emergency Department Note ---
Impression & Plan SOB (shortness of breath), Bilateral edema of lower extremity, Traumatic hematoma of left lower leg ED Provider Note NAME: ROBERTO GARCIA AGE: 79 SEX: M : 1945 ARRIVES VIA: Walk-In INFORMANT: Patient, Son ED PROVIDER(S): Ottoniel Cm MD CHIEF COMPLAINT: Leg pain and swelling, outpatient referral MEDICAL DECISION MAKING: Patient presents due to concern for wound care referral possible volume overload who has had worsening lower extremity pain weight gain JONES. IV was established and blood work was obtained. Patient already did have wound care completed earlier today. These were traumatic in nature from prior in the are showing some improvement. Patient with a normal white count hemoglobin 11.3. Platelet count is unremarkable. The patient did receive supplement of IV morphine as well as IV Tylenol. Patient's BNP of 212. Urinalysis does not show evidence of obvious infection. IV Lasix 40 mg ordered. DVT ultrasound negative. Chest x- ray may show bilateral small pleural effusions. I did speak with the on-call hospitalist service and the patient was admitted to the medicine service. Discussion w/ other healthcare providers: Alana Clinton PA-C and Dr. Casarez Prior /Outside records reviewed: I reviewed wound care visit note today which showed "At this time I am recommending that the patient be reevaluated in the emergency department for possible admission. Patient does have evidence of pulmonary vascular congestion on recent chest x-ray and has developed increasing lower extremity edema and I am concerned that some of worsening dependent edema and generalized weakness are related to his congestive heart failure. In addition he lives alone and has had recurrent falls, generalized weakness and worsening pain. May benefit from short rehab stay. He does have evidence of a hematoma to his left calf to this area and is at risk for compartment syndrome or ulceration. Patient is agreeable and son will take him by private vehicle to the emergency department. I have discussed his care with Chiara, ED nurse." Dr. Lester Differential diagnosis: DVT, hematoma, CHF, hypoalbuminemia, Diagnostics, as interpreted by me: ECG: A-fib, rate of 87, normal QRS duration normal axis. T wave version lead III. Cardiac monitoring: An order was placed for continuous cardiac monitoring. The monitor shows a rate of 85 with sinus rhythm. Patient was placed on pulse oximetry Medical decision rules: None Imaging studies: I informally interpreted the patient's chest x-ray shows likely pulmonary edema with formal report to follow. HPI: Patient presents due to concern for worsening leg swelling and pain. The patient was seen in the outpatient setting by wound care this morning Dr. Nicole and referred here for further evaluation and treatment. Patient denies any chest pain. He does have exertional shortness of breath. There was increasing concern due to his increasing leg swelling and pain. Patient denies any falls or trauma. Apparently there was some local debridement performed as the patient does have a chronic left lower extremity wound. They did not think it was somewhat infected but did notice some increasing swelling as well as associated pain. Patient does not complain of any shortness of breath at rest but only JONES. Patient denies any cough or fever. He did not take his Lasix this morning. There was also some possible concern about heart failure. The patient states that he is compliant with his Lasix although did not take it this morning. The patient denies any chest pain. He is accompanied by his son. He did not take his home oxygen today either. Patient reports that he has a very small wound around the left knee. PAST MEDICAL HISTORY: See Below PAST SURGICAL HISTORY: See Below SOCIAL HISTORY: See Below HOME MEDICATIONS: See Below ALLERGIES: See Below VITALS: See Below PHYSICAL EXAMINATION: GENERAL: NAD, non-toxic. EYE EXAM: Normal conjunctiva. PERRL, no anisocoria and EOM's grossly intact w/o pain. OROPHARYNX: Moist mucus membranes, grossly normal dentition. NECK: Trachea midline, no stridor. Supple, no nuchal rigidity, no adenopathy, non-tender. No signs of meningismus. FROM of the neck with good chin to chest and neck extension. LUNGS: Clear to auscultation. Normal chest wall mechanics. HEART: NSR, no MRG. ABDOMEN: Abdomen soft, non-tender, no masses, no rebound or guarding. BACK: No CVA TTP. SKIN: No rashes and no bruising. UPPER EXTREMITIES: Upper extremities are grossly normal. LOWER EXTREMITIES: Left greater than right lower extremity swelling, no significant, ecchymosis noted to the medial aspect of the left lower extremity, compartments are soft, good pedal pulse. Sensate to DP SP and tibialis nerves in the left foot. Dressing in place over the mid lower leg. NEURO EXAM: A&O x3, cranial nerves II-XII grossly intact, normal speech, moves all 4 extremities. Past Med/Surg History Problem List (Updated 08/01/24 @ 08:43 by Ottoniel Cm MD) BPH (benign prostatic hyperplasia) Chronic anemia Rheumatoid arthritis HLD (hyperlipidemia) Diabetes mellitus, type II Atrial fibrillation no pacer > med controlled Cellulitis of left leg Weakness (Acute) Skin tear of right upper extremity (Acute) Skin tear of left upper extremity (Acute) Traumatic hematoma of left lower leg (Acute) Recurrent falls (Acute) Wound dehiscence Pneumonitis Severe sepsis Rhinovirus infection (Acute) Acute exacerbation of CHF (congestive heart failure) (Acute) Pulmonary edema (Acute) Elevated lactic acid level (Acute) Leukocytosis (Acute) Hemoptysis (Acute) Shortness of breath (Acute) Traumatic open wound of left lower leg with delayed healing (Acute) Avulsion of skin of left lower leg Thrombocytopenia (Acute) Multiple skin tears (Acute) History of CHF (congestive heart failure) (Acute) History of COPD (Acute) Bilateral edema of lower extremity (Acute) Bilateral cellulitis of lower leg (Acute) Acute on chronic heart failure with preserved ejection fraction (HFpEF) Bilateral cellulitis of lower leg Sepsis Vomiting (Acute) Pneumonia (Acute) Shortness of breath (Acute) Aspiration into airway (Acute) COPD exacerbation Tachycardia-bradycardia syndrome Sinus pause PAC (premature atrial contraction) (Acute) Chest pain (Acute) Hx of supraventricular tachycardia COPD (chronic obstructive pulmonary disease) SOB (shortness of breath) (Acute) Rheumatoid arthritis (Acute) Medical History Hx of sepsis treated at [facility] 05/2024 > resolved per pt History of COVID-2019 History of COPD no res inh, controlled with routine inh per pt History of pneumonia treated at [facility] 05/13/24 was overnight obs per pt, no further issues, breathing is better per pt CHF (congestive heart failure) controlled at present per pt, follows with Dr. Denny Cellulitis present to left lower leg > sees wound clinic weekly Hx of peripheral neuropathy Ascending aorta enlargement follows with Dr. Denny, pt unaware of details Surgical History Hx of cataract extraction right History of tooth extraction History of colonoscopy History of thoracotomy remote hx H/O inguinal hernia repair Family History Father Heart disease Social History Smoking Status: Never smoker Tobacco Type: Smokeless Tobacco (Dip or Chew) Cigarettes Per Day: 1 PPD; Second Hand Exposure: No; Do You Dip or Chew Tobacco: Yes; Tobacco Cessation Education Requested by Patient: No Hx Alcohol Use: No Hx Substance Use: No Preferred Language: Uzbek Communication Ability: Effective Visual Impairment: Limited Hearing Ability: Hard of Hearing Travel Rn Or Required: No Beliefs That Will Affect Care: None marital status: / Current Living Situation: Alone Current Living Situation Comment: Lives alone, son lives in close proximity current occupational status: retired How many Children do You have: 3 How many Children do You have Comment: All children live close and one son that lives closest is able to assist Other Information That Helps Us Care for You: No Feels Safe at Home: Yes Safety Concerns: Feels Safe At This Time Diet: regular during the past year weight has: remained stable Assistive Devices: Cane, Denture - Upper, Denture - Lower, Glasses and Hearing Aid - Bilateral Allergies Allergies Allergy/AdvReac Type Severity Reaction Status Date / Time No Known Allergies Allergy Verified 07/31/24 08:33 Home Meds Home Medications Medication Instructions Recorded Confirmed finasteride 5 mg tablet 5 mg PO DAILY 04/25/20 07/31/24 gabapentin 300 mg capsule 300 mg PO BID 04/25/20 07/31/24 prednisone 5 mg tablet 5 mg PO BID 04/25/20 07/31/24 spironolactone 25 mg tablet 25 mg PO QAM 04/25/20 07/31/24 cholecalciferol (vitamin D3) 25 50 mcg PO DAILY 07/30/20 07/31/24 mcg (1,000 unit) tablet (Vitamin D3) apixaban 5 mg tablet 5 mg PO BID 12/31/22 07/31/24 pantoprazole 40 mg tablet,delayed 40 mg PO QAM 12/31/22 07/31/24 release cyanocobalamin (vitamin B-12) 1,000 mcg PO DAILY 01/31/24 07/31/24 1,000 mcg tablet (Vitamin B-12) fluticasone 500 mcg-salmeterol 50 1 inh inhalation BID 01/31/24 07/31/24 mcg/dose blistr powdr for inhalation (Wixela Inhub) rosuvastatin 20 mg tablet 20 mg PO QAM 03/25/24 07/31/24 Previous Rx's Medication Instructions Recorded furosemide 40 mg tablet 40 mg PO QAM #30 tabs 02/08/24 metoprolol succinate 50 mg 50 mg PO BID #60 tabs 02/08/24 tablet,extended release 24 hr oxycodone 5 mg tablet 5 mg PO Q4H PRN pain #30 tabs 03/28/24 Results & Data (ED) Vital Signs Vital Signs - 24 hr 07/31/24 09:57 07/31/24 10:46 07/31/24 11:54 Temperature 36.3 C L Temperature Source Skin Pulse Rate 98 H 96 H Pulse Rate [Apical] 98 H Respiratory Rate 20 20 Respiratory Effort / Characteristics Non-Labored Spontaneous Respiratory Depth Normal Respiratory Pattern Regular Blood Pressure 132/95 Blood Pressure [Right Arm] 137/89 Blood Pressure Mean 107 Blood Pressure Mean [Right Arm] 105 Pulse Oximetry 96 93 Oxygen Delivery Method Room Air Room Air Sepsis Recent Fever Within 48 Hours No Sepsis New/Unexplained Change in Mental Status N/A Sepsis Action Taken by Nursing No Action Required 07/31/24 11:54 Temperature Temperature Source Pulse Rate Pulse Rate [Apical] Respiratory Rate Respiratory Effort / Characteristics Respiratory Depth Respiratory Pattern Blood Pressure Blood Pressure [Right Arm] Blood Pressure Mean Blood Pressure Mean [Right Arm] Pulse Oximetry 93 Oxygen Delivery Method Room Air Sepsis Recent Fever Within 48 Hours Sepsis New/Unexplained Change in Mental Status Sepsis Action Taken by Skilled Nursing Medications Current Medication List: was personally reviewed by me Laboratory Data Attestation: I reviewed the patient's lab results. 08/01/24 04:49 08/01/24 04:49 Lab Results 07/31/24 07/31/24 Range/Units 11:00 11:56 WBC 9.70 (4.8-10.8) K/ul RBC 3.30 L (4.70-6.10) M/uL Hgb 11.3 L (14.0-18.0) g/dl Hct 34.5 L (42.0-52.0) % MCV 104.5 H (80.0-100.0) fL MCH 34.2 H (25.0-34.0) pg MCHC 32.8 (32.0-36.0) g/dL RDW Std Deviation 61.8 H (36.4-46.3) fL RDW Coeff of Roxanna 16.0 H (11.5-14.5) % Plt Count 160 (130-400) K/uL MPV 12.1 (9.4-12.4) fL Immature Gran % (Auto) 2.0 % Neut % (Auto) 74.5 % Lymph % (Auto) 14.2 % [place] % (Auto) 8.6 % Eos % (Auto) 0.4 % Baso % (Auto) 0.3 % Neut # (Auto) 7.23 H (1.40-6.50) K/uL Lymph # (Auto) 1.38 (1.20-3.40) K/uL [place] # (Auto) 0.83 H (0.11-0.59) K/uL Eos # (Auto) 0.04 (0.00-0.50) K/uL Baso # (Auto) 0.03 (0.00-0.20) K/uL Immature Gran # (Auto) 0.19 (0.01-0.20) K/uL Absolute Nucleated RBC 0.02 (0.00-0.12) K/uL Nucleated RBC % (auto) 0.2 % Sodium 136 (136-145) mmol/L Potassium 4.5 (3.5-5.1) mmol/L Chloride 102 (98-107) mmol/L Carbon Dioxide 25 (21-32) mmol/L Anion Gap 9 (3-11) BUN 34 H (6-23) mg/dl Creatinine 0.90 (0.6-1.4) mg/dl Est Cr Clr Drug Dosing 64.4 ml/min eGFR 85.80 BUN/Creatinine Ratio 37.8 H (10-20) Glucose 157 H (70-99(Fasting)) mg/dl Calcium 9.3 (8.6-10.3) mg/dl Magnesium 2.4 (1.7-2.4) mg/dl Total Bilirubin 1.4 H (0.2-1.0) mg/dl AST 25 (13-39) U/L ALT 23 (7-52) U/L Alkaline Phosphatase 37 (34-104) U/L Troponin I High Sens 9.2 (0-20) pg/ml B-Natriuretic Peptide 212 H (0-100) pg/ml Total Protein 6.7 (6.0-8.3) gm/dl Albumin 4.1 (3.4-5.0) gm/dl Globulin 2.6 (2.5-4.0) gm/dl Albumin/Globulin Ratio 1.6 (0.9-2) TSH 1.402 (0.300-4.500) uIu/ml Urine Color Dark Yellow Urine Appearance Clear (Clear) Urine pH 5.0 (4.5-7.5) Ur Specific [place] 1.033 H (1.000-1.030) Urine Protein 1+ H (Negative) Urine Glucose (UA) 2+ H (Negative) Urine Ketones Trace H (Negative) Urine Blood Negative (Negative) Urine Nitrite Negative (Negative) Urine Bilirubin 1+ H (Negative) Urine Urobilinogen Negative (Negative) Ur Leukocyte Esterase Negative (Negative) Urine WBC (Auto) 0-5 (0-5) /hpf Urine RBC (Auto) 0-2 (0-2) /hpf U Hyaline Cast (Auto) 6-10 H (0-2) /lpf U Epithel Cells (Auto) 6-10 H (0-2) /hpf Urine Bacteria (Auto) None Seen (None Seen) Administered Medications Acetaminophen (Acetaminophen 325 Mg Tab) 650 mg PO Q4H PRN PRN Reason: Pain or Fever Stop: 08/30/24 15:35 Last Admin: 08/01/24 04:48 Dose: 650 mg Documented By: MATILDE Cyanocobalamin (Cyanocobalamin (B-12) 500 Mcg Tablet) 1,000 mcg PO DAILY STEPHEN Stop: 08/31/24 08:59 Last Admin: 08/01/24 07:54 Dose: 1,000 mcg Documented By: MATILDE(2) Finasteride (Finasteride 5 Mg Tab) 5 mg PO DAILY STEPHEN Stop: 08/31/24 08:59 Last Admin: 08/01/24 07:54 Dose: 5 mg Documented By: MATILDE(2) Fluticasone/Vilanterol (Fluticasone/Vilanterol 100/25mcg 14 Puffs/Inhaler) 1 puffs INH DAILY STEPHEN Stop: 08/31/24 08:59 Last Admin: 08/01/24 07:53 Dose: 1 puffs Documented By: MATILDE(2) Furosemide (Furosemide 40 Mg/4 Ml Vial) 40 mg IV DAILY STEPHEN Stop: 08/31/24 08:59 Last Admin: 08/01/24 07:58 Dose: 40 mg Documented By: MATILDE(2) Gabapentin (Gabapentin 300 Mg Cap) 300 mg PO BID STEPHEN Stop: 08/30/24 20:59 Last Admin: 08/01/24 07:56 Dose: 300 mg Documented By: MATILDE(2) Admin: 07/31/24 20:55 Dose: 300 mg Documented By: BALTAF Cefepime HCl (Maxipime 2000mg) 2,000 mg in 20 mls @ 5 mls/min IV Q8H STEPHEN; Protocol Stop: 08/07/24 13:59 Last Admin: 08/01/24 07:49 Dose: 5 mls/min Documented By: MATILDE(2) Admin: 07/31/24 22:17 Dose: 5 mls/min Documented By: Admin: 07/31/24 14:49 Dose: 5 mls/min Documented By: LINDSEY Insulin Aspart (Insulin Aspart Per Unit Charge) 0 units SC ACHS STEPHEN Stop: 08/30/24 16:29 Last Admin: 07/31/24 21:03 Dose: Not Given Documented By: Admin: 07/31/24 18:12 Dose: Not Given Documented By: DAIN Metoprolol Succinate (Metoprolol Succ 50mg Ext Rel Tab) 50 mg PO BID STEPHEN Stop: 08/30/24 20:59 Last Admin: 08/01/24 07:56 Dose: 50 mg Documented By: MATILDE(2) Admin: 07/31/24 20:55 Dose: 50 mg Documented By: BALTAF Pantoprazole Sodium (Pantoprazole 40 Mg Tab) 40 mg PO QAM STEPHEN Stop: 08/31/24 08:59 Last Admin: 08/01/24 07:55 Dose: 40 mg Documented By: MATILDE(2) Prednisone (Prednisone 5 Mg Tab) 5 mg PO BID STEPHEN Stop: 08/30/24 20:59 Last Admin: 08/01/24 07:54 Dose: 5 mg Documented By: MATILDE(2) Admin: 07/31/24 20:55 Dose: 5 mg Documented By: SIM Rosuvastatin Calcium (Rosuvastatin Calcium 20 Mg Tab) 20 mg PO QAM STEPHEN Stop: 08/31/24 08:59 Last Admin: 08/01/24 07:55 Dose: 20 mg Documented By: MATILDE(2) Spironolactone (Spironolactone 25 Mg Tab) 25 mg PO QAM STEPHEN Stop: 08/31/24 08:59 Last Admin: 08/01/24 07:55 Dose: 25 mg Documented By: MATILDE(2) Vitamin D (Cholecalciferol 25 Mcg (1000 Units) Tab) 50 mcg PO DAILY STEPHEN Stop: 08/31/24 08:59 Last Admin: 08/01/24 07:53 Dose: 50 mcg Documented By: MATILDE(2) Discontinued Medications Furosemide (Furosemide 40 Mg/4 Ml Vial) 40 mg IV ONE ONE Stop: 07/31/24 10:22 Last Admin: 07/31/24 12:26 Dose: 40 mg Documented By: LINDSEY Acetaminophen (Ofirmev) 1,000 mg in 100 mls @ 400 mls/hr IV NOW STA Stop: 07/31/24 10:35 Last Infusion: 07/31/24 12:45 Dose: Infused Documented By: Admin: 07/31/24 12:26 Dose: 400 mls/hr Documented By: LINDSEY Morphine Sulfate (Morphine Sulfate 4 Mg/Ml 1 Ml Carp\\Vial) 4 mg IV NOW STA Stop: 07/31/24 10:22 Last Admin: 07/31/24 12:26 Dose: 4 mg Documented By: LINDSEY Imaging Data Radiologist's Impression: Chest X-Ray 07/31/24 10:21 XR chest 1V portable CLINICAL HISTORY: weakness TECHNIQUE: Single frontal radiograph of the chest was obtained. Comparison: Comparison is made to chest radiograph 07/30/2024 FINDINGS: No lines and tubes are seen. Cardiomegaly is noted. The aortic arch is calcified. Reticular interstitial opacities are seen. Cannot exclude small bilateral pleural effusions. IMPRESSION: Possible small bilateral pleural effusions. ACT 112: Negative or not required by law. Electronically signed by: Shaji Black M.D. 07/31/2024 10:47 AM Venous Doppler Study 07/31/24 10:21 US venous doppler LE LT CLINICAL HISTORY: swelling, bruising over medial lowe leg TECHNIQUE: Left lower extremity real-time compression venous ultrasound with Color Doppler imaging. Utilizing real-time ultrasonic imaging multiple real time high-resolution ultrasonic images with compression and noncompression maneuvers of the deep venous system in addition to color doppler imaging were performed from the common femoral vein through the proximal calf veins. COMPARISON: None available at the time of this dictation. FINDINGS/IMPRESSION: No deep venous thrombus, there is normal compressibility of the deep venous system from the common femoral vein through the proximal calf veins. No superficial venous thrombosis is identified. Soft tissue edema is seen. ACT 112: Negative or not required by law. Electronically signed by: Shaji Black M.D. 07/31/2024 12:30 PM Discharge Plan Visit Data Chief Complaint: Swelling/Edema to Extremity Stated Complaint: ADMIT REQ, EDEMA/PAIN BOTH LEGS ED Provider: Ottoniel Cm Discharge Problem: SOB (shortness of breath), Bilateral edema of lower extremity, Traumatic hematoma of left lower leg Patient Disposition: Admitted As Inpatient Discharge Instructions Interventions: ED Discharge Assessment Last Done: 07/31/24 15:37
--- NOTE | 2024-07-31 10:48 | XRay Report ---
XR chest 1V portable CLINICAL HISTORY: weakness TECHNIQUE: Single frontal radiograph of the chest was obtained. Comparison: Comparison is made to chest radiograph 07/30/2024 FINDINGS: No lines and tubes are seen. Cardiomegaly is noted. The aortic arch is calcified. Reticular interstit ial opacities are seen. Cannot exclude small bilateral pleural effusions. IMPRESSION: Possible small bilateral pleural effusions. ACT 112: Negative or not required by law. Electronically signed by: Shaji Black M.D. 07/31/2024 10:47 AM
[2024-07-31 11:42] LABS: Basophils # (auto) 0.03 K/uL (0.00-0.20); Basophils % (auto) 0.3 %; Eosinophils # (auto) 0.04 K/uL (0.00-0.50); Eosinophils % (auto) 0.4 %; Hematocrit (blood only) 34.5 % (42.0-52.0); Hemoglobin 11.3 g/dl (14.0-18.0); Immature Granulocytes # (auto) 0.19 K/uL (0.01-0.20); Lymphocytes # (auto) 1.38 K/uL (1.20-3.40); Lymphocytes % (auto) 14.2 %; Mean Corpuscular Hemoglobin 34.2 pg (25.0-34.0); Mean Corpuscular Hgb Conc 32.8 g/dL (32.0-36.0); Mean Corpuscular Volume 104.5 fL (80.0-100.0); Mean Platelet Volume 12.1 fL (9.4-12.4); Monocytes # (auto) 0.83 K/uL (0.11-0.59); Monocytes % (auto) 8.6 %; Neutrophils # (auto) 7.23 K/uL (1.40-6.50); Neutrophils % (auto) 74.5 %; Nucleated RBC # (auto) 0.02 K/uL (0.00-0.12); Nucleated RBC % (auto) 0.2 %; Platelet Count 160 K/uL (130-400); RDW Standard Deviation 61.8 fL (36.4-46.3)
[2024-07-31 11:59] LABS: Albumin Globulin Ratio 1.6 (0.9-2); Albumin Level 4.1 gm/dl (3.4-5.0); BUN Creatinine Ratio 37.8 (10-20); Bilirubin,Total 1.4 mg/dl (0.2-1.0); Calcium 9.3 mg/dl (8.6-10.3); Creatinine Clr Calc Pharmacy 64.4 ml/min; Globulin 2.6 gm/dl (2.5-4.0); Magnesium 2.4 mg/dl (1.7-2.4); Potassium 4.5 mmol/L (3.5-5.1); Total Protein 6.7 gm/dl (6.0-8.3)
[2024-07-31 12:04] LABS: Troponin I High Sensitivity 9.2 pg/ml (0-20)
[2024-07-31 12:14] LABS: Thyroid Stimulating Hormone 1.402 uIu/ml (0.300-4.500)
[2024-07-31] MEDS: ACETAMINOPHEN 1,000 MG/100 ML VIAL IV STA (12:26)
[2024-07-31] MEDS: FUROSEMIDE 40 MG/4 ML VIAL IV ONE (12:26)
[2024-07-31] MEDS: MoRPHine SULFATE 4 MG/ML 1 ML CARP\\VIAL IV STA (12:26)
[2024-07-31 12:28] LABS: Appearance Urine Clear (Clear); Bacteria Urine Automated None Seen (None Seen); Bilirubin Urine 1+ (Negative); Blood Urine Negative (Negative); Color Urine Dark Yellow; Glucose Urine UA 2+ (Negative); Ketones Urine Trace (Negative); Leukocyte Esterase Urine Negative (Negative); Nitrite Urine Negative (Negative); Protein Urine 1+ (Negative); RBC Urine Automated 0-2 /hpf (0-2); Specific Gravity Urine 1.033 (1.000-1.030); Urobilinogen Urine Negative (Negative); WBC Urine Automated 0-5 /hpf (0-5)
--- NOTE | 2024-07-31 12:31 | Ultrasound Report ---
US venous doppler LE LT CLINICAL HISTORY: swelling, bruising over medial lowe leg TECHNIQUE: Left lower extremity real-time compression venous ultrasound with Color Doppler imaging. U tilizing real-time ultrasonic imaging multiple real time high-resolution ultrasonic images with compr ession and noncompression maneuvers of the deep venous system in addition to color doppler imaging we re performed from the common femoral vein through the proximal calf veins. COMPARISON: None available at the time of this dictation. FINDINGS/IMPRESSION: No deep venous thrombus, there is normal compressibility of the deep venous system from the common fe moral vein through the proximal calf veins. No superficial venous thrombosis is identified. Soft tis braydon edema is seen. ACT 112: Negative or not required by law. Electronically signed by: Shaji Black M.D. 07/31/2024 12:30 PM
--- NOTE | 2024-07-31 12:52 | History & Physical Report ---
Date of Service July 31, 2024 Assessment & Plan (1) Traumatic hematoma of left lower leg: (2) Cellulitis of left leg: (3) Recurrent falls: Plan: Chronic wounds Patient is 79-year-old male with PMH HTN, persistent atrial fibrillation anticoagulated on Eliquis, paroxysmal SVT, DM II, chronic anemia, rheumatoid arthritis, leg wounds presented to ER with c/o LE edema and discomfort with left leg edema worse and past 2 days tender and ecchymotic area to LLE. History fall 3 days ago 07/30/2024 left tibia/fibula x-ray that did not show any acute fracture. Today venous doppler without acute DVT Tylenol, oxycodone prn pain Ortho consult May need to consider further imaging to further assess hematoma vs abscess. Will await ortho recommendations Follows with wound clinic for chronic wounds. Wound nurse consult while inpatient Fall precautions PT/OT eval Hold home Eliquis currently Start cefepime CBC, BMP in am (4) Acute on chronic heart failure with preserved ejection fraction (HFpEF): Plan: Suspect volume overload BNP:212 CXR: possible small pleural effusion. No overt pulmonary congestion noted In ER given Lasix 40mg IV Will hold home oral lasix and convert to IV and monitor response Monitor I's & O's, daily weight Low sodium diet Echo Continue home spironolactone CBC, BMP in am May need to consider cardiology consult if no improvement (5) Atrial fibrillation: Plan: History persistent A-Fib Paroxysmal SVT Borderline tachybrady syndrome Monitor on telemetry Continue metoprolol succinate Hold Eliquis currently with leg hematoma (6) Diabetes mellitus, type II: Plan: A1c: 7.5 on 03/26/24 Not on medication Novolog sliding scale per protocol Diabetic diet A1c in AM (7) COPD (chronic obstructive pulmonary disease): Plan: No signs acute exacerbation Continue home inhalers (8) HLD (hyperlipidemia): Plan: Continue rosuvastatin (9) Rheumatoid arthritis: Plan: On Chronic prednisone Continue prednisone (10) Chronic anemia: Plan: History B12 deficiency Hb.3 (baseline 11-12) Continue B12 supplement (11) BPH (benign prostatic hyperplasia): Plan: Continue finasteride DVT Prophylaxis SCD to RLE at this time Admit med tele Full Code as per discussion with pt Pt was seen and care coordinated with Dr Casarez. See addendum I spent a total of 75 minutes reviewing notes, outpatient records, labs, medication, coordinating, documenting and providing care for this patient excluding time spent in the performance of separately billed services. History of Present Illness Chief Complaint: Leg edema Primary Care Provider: TEZ LongoC Patient is 79-year-old male with PMH HTN, persistent atrial fibrillation anticoagulated on Eliquis, paroxysmal SVT, DM II, chronic anemia, rheumatoid arthritis, leg wounds presented to ER with c/o LE edema and discomfort. Patient reports progressive BLE edema over past couple months with left leg worse than right leg edema. States bilateral leg pain and legs "feel like clubs" and having difficulty walking because of that. States legs are painful. Has been using oxycodone as needed with limited relief. States had fall three days ago and skin tears to arms and following with wound clinic. Has been following with wound clinic previously for traumatic LE wounds also. Noticed past two day increased LLE edema with bruising to left salgado. States stubbed left foot and has bruising to left toes and foot. Denies toe or foot pain just pain from knees down. Reports exertional SOB that has been progressive over past couple of months. Denies SOB at rest. Denies CP. States intermittent sensation heart is skipping a beat which he describes as chronic issue and not occurring more often and denies tachycardia sensation, dizziness, lightheadedness, or syncope. Per chart review was seen at wound clinic today and referred to ER secondary to LLE edema. Per chart review 07/30/2024 seen at [facility] ER and had left tibia/fibula x-ray that did not show any acute fracture. Chronic decreased urinary stream and dribbling but denies dysuria or hematuria. Denies fever/chills, diaphoresis, N/V/D/C, HERNANDEZ, dizziness, syncope, vision changes, neck pain, CP, orthopnea, cough, sore thr oat, rhinorrhea, abdominal pain, rashes. Allergies Allergy/AdvReac Type Severity Reaction Status Date / Time No Known Allergies Allergy Verified 07/31/24 08:33 Home Medications Medication Instructions Recorded Confirmed Type finasteride 5 mg tablet 5 mg PO DAILY 04/25/20 07/31/24 History gabapentin 300 mg capsule 300 mg PO BID 04/25/20 07/31/24 History prednisone 5 mg tablet 5 mg PO BID 04/25/20 07/31/24 History spironolactone 25 mg tablet 25 mg PO QAM 04/25/20 07/31/24 History cholecalciferol (vitamin D3) 25 50 mcg PO DAILY 07/30/20 07/31/24 History mcg (1,000 unit) tablet (Vitamin D3) apixaban 5 mg tablet 5 mg PO BID 12/31/22 07/31/24 History pantoprazole 40 mg tablet,delayed 40 mg PO QAM 12/31/22 07/31/24 History release cyanocobalamin (vitamin B-12) 1,000 mcg PO DAILY 01/31/24 07/31/24 History 1,000 mcg tablet (Vitamin B-12) fluticasone 500 mcg-salmeterol 50 1 inh inhalation BID 01/31/24 07/31/24 History mcg/dose blistr powdr for inhalation (Wixela Inhub) furosemide 40 mg tablet 40 mg PO QAM #30 tabs 02/08/24 07/31/24 Rx metoprolol succinate 50 mg 50 mg PO BID #60 tabs 02/08/24 07/31/24 Rx tablet,extended release 24 hr rosuvastatin 20 mg tablet 20 mg PO QAM 03/25/24 07/31/24 History oxycodone 5 mg tablet 5 mg PO Q4H PRN pain #30 tabs 03/28/24 07/31/24 Rx Past Med/Surg History Problem List (Updated 07/31/24 @ 15:51 by Alana Leonardo PA-C) BPH (benign prostatic hyperplasia) Chronic anemia Rheumatoid arthritis HLD (hyperlipidemia) Diabetes mellitus, type II Atrial fibrillation no pacer > med controlled Cellulitis of left leg Weakness (Acute) Skin tear of right upper extremity (Acute) Skin tear of left upper extremity (Acute) Traumatic hematoma of left lower leg (Acute) Recurrent falls (Acute) Wound dehiscence Pneumonitis Severe sepsis Rhinovirus infection (Acute) Acute exacerbation of CHF (congestive heart failure) (Acute) Pulmonary edema (Acute) Elevated lactic acid level (Acute) Leukocytosis (Acute) Hemoptysis (Acute) Shortness of breath (Acute) Traumatic open wound of left lower leg with delayed healing (Acute) Avulsion of skin of left lower leg Thrombocytopenia (Acute) Multiple skin tears (Acute) History of CHF (congestive heart failure) (Acute) History of COPD (Acute) Bilateral edema of lower extremity (Acute) Bilateral cellulitis of lower leg (Acute) Acute on chronic heart failure with preserved ejection fraction (HFpEF) Bilateral cellulitis of lower leg Sepsis Vomiting (Acute) Pneumonia (Acute) Shortness of breath (Acute) Aspiration into airway (Acute) COPD exacerbation Tachycardia-bradycardia syndrome Sinus pause PAC (premature atrial contraction) (Acute) Chest pain (Acute) Hx of supraventricular tachycardia COPD (chronic obstructive pulmonary disease) SOB (shortness of breath) (Acute) Rheumatoid arthritis (Acute) Medical History Hx of sepsis treated at [facility] 05/2024 > resolved per pt History of COVID-19 2019 Rheumatoid arthritis History of COPD no res inh, controlled with routine inh per pt History of pneumonia treated at [place] 05/13/24 was overnight obs per pt, no further issues, breathing is better per pt Atrial fibrillation no pacer > med controlled CHF (congestive heart failure) controlled at present per pt, follows with Dr. Denny Cellulitis present to left lower leg > sees wound clinic weekly Hx of peripheral neuropathy BPH (benign prostatic hyperplasia) Ascending aorta enlargement follows with Dr. Denny, pt unaware of details Surgical History Hx of cataract extraction right History of tooth extraction History of colonoscopy History of thoracotomy remote hx H/O inguinal hernia repair Family History Father Heart disease Social History Smoking Status: Former smoker Tobacco Type: Cigarettes Cigarettes Per Day: 1 PPD; Second Hand Exposure: No; Do You Dip or Chew Tobacco: Yes (advised npo status); Hx Alcohol Use: No Hx Substance Use: No Preferred Language: Icelandic Communication Ability: Effective Visual Impairment: Limited Hearing Ability: Hard of Hearing Tobacco Sample Puller Required: No Beliefs That Will Affect Care: None marital status: / Current Living Situation: Alone Current Living Situation Comment: Lives alone, son lives in close proximity current occupational status: retired How many Children do You have: 3 How many Children do You have Comment: All children live close and one son that lives closest is able to assist Feels Safe at Home: Yes Diet: regular during the past year weight has: remained stable Assistive Devices: Cane, Denture - Upper, Denture - Lower and Glasses Review of Systems Review of Systems: All systems reviewed & are unremarkable except as noted in HPI & below Physical Exam Physical Exam: General: no acute distress, WDWN elderly male Head: normocephalic, atraumatic Eyes: conjunctiva non-injected, anicteric ENT: normal inspection external ears, nose, mucous membranes moist Neck: supple, trachea midline Lungs: clear, no respiratory distress, diminished bases, no rales, rhonchi or wheezing noted CV: irregularly irregular, rate 96 Abd: normal BS, soft, non-tender Ext: LLE: +Edema knee to foot, +ecchymosis and fluctuance to anterior/medial salgado with tenderness to palpation with surrounding erythema and warmth, lower leg with dressing in place. RLE: +[address] to skin tear left upper extremity, dressing in place to skin tear of right upper extremity (today by wound clinic) Neuro: A&O x 3, no focal deficits noted, normal affect Skin: warm, dry Results & Data Results & Data Vital Signs (Past 12 Hours) Vital Signs Temp Pulse Pulse Resp BP BP Pulse Ox 07/31/24 11:54 93 07/31/24 11:54 98 H 20 137/89 93 07/31/24 10:46 96 H 07/31/24 09:57 36.3 C L 98 H 20 132/95 96 O2 Del Method 07/31/24 11:54 Room Air 07/31/24 11:54 Room Air 07/31/24 10:46 07/31/24 09:57 Room Air Laboratory Results Short CBC 07/31/24 Range/Units 11:00 WBC 9.70 (4.8-10.8) K/ul Hgb 11.3 L (14.0-18.0) g/dl Hct 34.5 L (42.0-52.0) % Plt Count 160 (130-400) K/uL BMP 07/31/24 11:00 Sodium 136 Potassium 4.5 Chloride 102 Carbon Dioxide 25 BUN 34 H Creatinine 0.90 Glucose 157 H Calcium 9.3 Liver Function 07/31/24 Range/Units 11:00 Total Bilirubin 1.4 H (0.2-1.0) mg/dl AST 25 (13-39) U/L ALT 23 (7-52) U/L Alkaline Phosphatase 37 (34-104) U/L Albumin 4.1 (3.4-5.0) gm/dl Urine 07/31/24 Range/Units 11:56 Urine Color Dark Yellow Urine Appearance Clear (Clear) Urine pH 5.0 (4.5-7.5) Ur Specific [place] 1.033 H (1.000-1.030) Urine Protein 1+ H (Negative) Urine Glucose (UA) 2+ H (Negative) Diagnostic Findings Chest X-Ray 07/31/24 10:21 XR chest 1V portable CLINICAL HISTORY: weakness TECHNIQUE: Single frontal radiograph of the chest was obtained. Comparison: Comparison is made to chest radiograph 07/30/2024 FINDINGS: No lines and tubes are seen. Cardiomegaly is noted. The aortic arch is calcifi ed. Reticular interstitial opacities are seen. Cannot exclude small bilateral pleural effusions. IMPRESSION: Possible small bilateral pleural effusions. ACT 112: Negative or not required by law. Electronically signed by: Shaji Black M.D. 07/31/2024 10:47 AM Venous Doppler Study 07/31/24 10:21 US venous doppler LE LT CLINICAL HISTORY: swelling, bruising over medial lowe leg TECHNIQUE: Left lower extremity real-time compression venous ultrasound with Color Doppler imaging. Utilizing real-time ultrasonic imaging multiple real time high-resolution ultrasonic images with compression and noncompression maneuvers of the deep venous system in addition to color doppler imaging were performed from the common femoral vein through the proximal calf veins. COMPARISON: None available at the time of this dictation. FINDINGS/IMPRESSION: No deep venous thrombus, there is normal compressibility of the deep venous system from the common femoral vein through the proximal calf veins. No superficial venous thrombosis is identified. Soft tissue edema is seen. ACT 112: Negative or not required by law. Electronically signed by: Shaji Black M.D. 07/31/2024 12:30 PM Supervising Physician Co-Signing Physician Notes attending addendum: The patient was seen and examined in emergency room in presence of the family member She has been complaining of increasing pain, swelling and spreading of infection of her legs mostly on the left for some time The swelling and pain got worse for the last 2 days Denies any fever and or chills noted to have bluish-black lump on the medial aspect of left mid calf 2 days back without any history of trauma She was seen by wound clinic today and was advised to come in to the hospital for IV antibiotic and physical therapy Denies any shortness of breath at rest, any chest pain or palpitation On examination Lying in bed without any apparent distress Hemodynamically stable and is afebrile Chestminimal decreased breath sounds bilaterally bases HeartS1-S2, irregularly irregular Abdomenbenign Extremitiesbilateral leg edema, left more than the right with redness warmth and ulceration involving the left leg and adjoining area of the foot. The left calf has a swelling with blackish area on top and fluctuation over the medial aspect of the mid calf. Which she is tender to palpate with increasing warmth and fluctuation. CNSalert, awake and oriented x 3 All labs, EKG and imaging studies reviewed Has bilateral leg swelling with chronic skin changes and redness Left leg cellulitisunder care of wound clinic and will ask for wound care nurse evaluation while in the hospital Left calf hematoma with possible abscess formation for further evaluation by the orthopedic surgeon Will start intravenous antibiotic while in the hospital Minimal congestive changes and will give intravenous Lasix agree with assessment and plan as outlined above by Alana Zhu PA-C and take the full responsibility of the care as outlined above DR Bouchra Casarez
[2024-07-31] MEDS: CEFEPIME 2000MG 2,000 MG/20 ML SYR IV SCH (14:49)
[2024-07-31] MEDS ORDERED: GLUCOSE 40% GEL 15 GM TUBE PO PRN (15:36)
[2024-07-31] MEDS ORDERED: GLUCAGON FOR INJ 1 MG VIAL SQ PRN (15:36)
[2024-07-31] MEDS ORDERED: DEXTROSE 50% 50 ML SYRINGE IV PRN (15:36)
[2024-07-31] MEDS ORDERED: GLUCOSE 10 TAB/TUBE PO PRN (15:36)
[2024-07-31] MEDS ORDERED: CARBOHYDRATES FOR HYPOGLYCEMIA PO PRN (15:36)
[2024-07-31] MEDS ORDERED: ONDANSETRON INJ 2 MG/ML 2 ML VIAL IV PRN (15:36)
[2024-07-31] MEDS ORDERED: POLYETHYLENE (MIRALAX) 17 GM PACK PO PRN (15:36)
--- NOTE | 2024-07-31 17:57 | Orthopedic Consultation ---
Date of Consultation July 31, 2024 Assessment & Plan (1) Traumatic hematoma of left lower leg: IMPRESSION: LLE Hematoma will treat conservatively RICE, Apply ice to left lower leg Monitor dressings for saturation Weightbearing as tolerated with walker assistance Pain controlled p.o. medication Continue wound care per wound care team PT/OT Roman stocking on right lower extremity Will continue to follow while inpatient Continue care per Hospitalist service Supervising Physician Co-Signing Physician Notes I, Dr. Cherry, saw and examined the patient. I discussed the management with my PA. I reviewed my PAs note and agree with the documented findings and attest to completing the substantive portion of medical decision making and plan of care I developed. History of Present Illness Reason for Consultation: left lower leg hematoma Requesting Physician: Orlando Cherry MD Attending Physician: Danette Casarez MD History of Present Illness Patient is 79-year-old male with PMH HTN, persistent atrial fibrillation anticoagulated on Eliquis, paroxysmal SVT, DM II, chronic anemia, rheumatoid arthritis, leg wounds presented to ER with c/o LE edema and discomfort. Patient reports progressive BLE edema over past couple months with left leg worse than right leg edema. States bilateral leg pain and legs "feel like clubs" and having difficulty walking because of that. States legs are painful. Has been using oxycodone as needed with limited relief. States had fall three days ago and skin tears to arms and following with wound clinic. Has been following with wound clinic previously for traumatic LE wounds also. Noticed past two day increased LLE edema with bruising to left salgado. States stubbed left foot and has bruising to left toes and foot. Denies toe or foot pain just pain from knees down. Reports exertional SOB that has been progressive over past couple of months. Denies SOB at rest. Denies CP. States intermittent sensation heart is skipping a beat which he describes as chronic issue and not occurring more often and denies tachycardia sensation, dizziness, lightheadedness, or syncope. Per chart review was seen at wound clinic today and referred to ER secondary to LLE edema. Per chart review 07/30/2024 seen at [facility] ER and had left tibia/fibula x-ray that did not show any acute fracture. Chronic decreased urinary stream and dribbling but denies dysuria or hematuria. Denies fever/chills, diaphoresis, N/V/D/C, HERNANDEZ, dizziness, syncope, vision changes, neck pain, CP, orthopnea, cough, sore throat, rhinorrhea, abdominal pain, rashes. Allergies Allergy/AdvReac Type Severity Reaction Status Date / Time No Known Allergies Allergy Verified 07/31/24 08:33 Home Medications Medication Instructions Recorded Confirmed Type finasteride 5 mg tablet 5 mg PO DAILY 04/25/20 07/31/24 History gabapentin 300 mg capsule 300 mg PO BID 04/25/20 07/31/24 History prednisone 5 mg tablet 5 mg PO BID 04/25/20 07/31/24 History spironolactone 25 mg tablet 25 mg PO QAM 04/25/20 07/31/24 History cholecalciferol (vitamin D3) 25 50 mcg PO DAILY 07/30/20 07/31/24 History mcg (1,000 unit) tablet (Vitamin D3) apixaban 5 mg tablet 5 mg PO BID 12/31/22 07/31/24 History pantoprazole 40 mg tablet,delayed 40 mg PO QAM 12/31/22 07/31/24 History release cyanocobalamin (vitamin B-12) 1,000 mcg PO DAILY 01/31/24 07/31/24 History 1,000 mcg tablet (Vitamin B-12) fluticasone 500 mcg-salmeterol 50 1 inh inhalation BID 01/31/24 07/31/24 History mcg/dose blistr powdr for inhalation (Wixela Inhub) furosemide 40 mg tablet 40 mg PO QAM #30 tabs 02/08/24 07/31/24 Rx metoprolol succinate 50 mg 50 mg PO BID #60 tabs 02/08/24 07/31/24 Rx tablet,extended release 24 hr rosuvastatin 20 mg tablet 20 mg PO QAM 03/25/24 07/31/24 History oxycodone 5 mg tablet 5 mg PO Q4H PRN pain #30 tabs 03/28/24 07/31/24 Rx Patient History Medical History Hx of sepsis treated at [facility] 05/2024 > resolved per pt History of COVID-2019 History of COPD no res inh, controlled with routine inh per pt History of pneumonia treated at [facility] 05/13/24 was overnight obs per pt, no further issues, breathing is better per pt CHF (congestive heart failure) controlled at present per pt, follows with Dr. Denny Cellulitis present to left lower leg > sees wound clinic weekly Hx of peripheral neuropathy Ascending aorta enlargement follows with Dr. Denny, pt unaware of details Surgical History Hx of cataract extraction right History of tooth extraction History of colonoscopy History of thoracotomy remote hx H/O inguinal hernia repair Family History Father Heart disease Social History Smoking Status: Never smoker Tobacco Type: Smokeless Tobacco (Dip or Chew) Cigarettes Per Day: 1 PPD; Second Hand Exposure: No; Do You Dip or Chew Tobacco: Yes; Tobacco Cessation Education Requested by Patient: No Hx Alcohol Use: No Hx Substance Use: No Preferred Language: Citizen Of [place] Communication Ability: Effective Visual Impairment: Limited Hearing Ability: Hard of Hearing Viscosity Inspector Required: No Beliefs That Will Affect Care: None marital status: / Current Living Situation: Alone Current Living Situation Comment: Lives alone, son lives in close proximity current occupational status: retired How many Children do You have: 3 How many Children do You have Comment: All children live close and one son that lives closest is able to assist Other Information That Helps Us Care for You: No Feels Safe at Home: Yes Safety Concerns: Feels Safe At This Time Diet: regular during the past year weight has: remained stable Assistive Devices: Cane, Denture - Upper, Denture - Lower, Glasses and Hearing Aid - Bilateral Review of Systems Review of Systems: All systems reviewed & are unremarkable except as noted in Subjective Physical Exam Physical Exam: Left lower leg: moderate sized hematoma to medial aspect of mid lower leg fluctuant to palpation with ecchymosis, Soft. Open ulceration to anterior lower leg dressed with adaptic and Aquacel. Also dressing over anterior knee abrasion. Ecchymosis and edema to entire dorsum of foot with ecchymosis at base of each. Patient is able to perform active straight leg raise test. He is able to actively dorsi and plantarflex foot, and can wiggle his toes. Sensation to light touch is diminished over the toes, but unchanged. His peripheral pulses are 1+. He is neurovascularly intact in the left lower extremity. Results & Data Vital Signs (Past 12 Hours) Vital Signs Temp Pulse Pulse Resp BP BP Pulse Ox 07/31/24 17:43 97 H 20 98 07/31/24 17:43 97 H 98 07/31/24 14:59 96 H 07/31/24 14:00 91 H 17 126/96 97 07/31/24 11:54 93 07/31/24 11:54 98 H 20 137/89 93 07/31/24 10:46 96 H 07/31/24 09:57 36.3 C L 98 H 20 132/95 96 O2 Del Method 07/31/24 17:43 Room Air 07/31/24 17:43 Room Air 07/31/24 14:59 07/31/24 14:00 Room Air 07/31/24 11:54 Room Air 07/31/24 11:54 Room Air 07/31/24 10:46 07/31/24 09:57 Room Air Diagnostic Findings Laboratory Results WBC 9.70 K/ul (4.8-10.8) 07/31/24 11:00 RBC 3.30 M/uL (4.70-6.10) L 07/31/24 11:00 Hgb 11.3 g/dl (14.0-18.0) L 07/31/24 11:00 Hct 34.5 % (42.0-52.0) L 07/31/24 11:00 MCV 104.5 fL (80.0-100.0) H 07/31/24 11:00 MCH 34.2 pg (25.0-34.0) H 07/31/24 11:00 MCHC 32.8 g/dL (32.0-36.0) 07/31/24 11:00 RDW Std Deviation 61.8 fL (36.4-46.3) H 07/31/24 11:00 RDW Coeff of Roxanna 16.0 % (11.5-14.5) H 07/31/24 11:00 Plt Count 160 K/uL (130-400) 07/31/24 11:00 MPV 12.1 fL (9.4-12.4) 07/31/24 11:00 Immature Gran % (Auto) 2.0 % 07/31/24 11:00 Neut % (Auto) 74.5 % 07/31/24 11:00 Lymph % (Auto) 14.2 % 07/31/24 11:00 [facility] % (Auto) 8.6 % 07/31/24 11:00 Eos % (Auto) 0.4 % 07/31/24 11:00 Baso % (Auto) 0.3 % 07/31/24 11:00 Neut # (Auto) 7.23 K/uL (1.40-6.50) H 07/31/24 11:00 Lymph # (Auto) 1.38 K/uL (1.20-3.40) 07/31/24 11:00 [facility] # (Auto) 0.83 K/uL (0.11-0.59) H 07/31/24 11:00 Eos # (Auto) 0.04 K/uL (0.00-0.50) 07/31/24 11:00 Baso # (Auto) 0.03 K/uL (0.00-0.20) 07/31/24 11:00 Immature Gran # (Auto) 0.19 K/uL (0.01-0.20) 07/31/24 11:00 Absolute Nucleated RBC 0.02 K/uL (0.00-0.12) 07/31/24 11:00 Nucleated RBC % (auto) 0.2 % 07/31/24 11:00 Sodium 136 mmol/L (136-145) 07/31/24 11:00 Potassium 4.5 mmol/L (3.5-5.1) 07/31/24 11:00 Chloride 102 mmol/L (98-107) 07/31/24 11:00 Carbon Dioxide 25 mmol/L (21-32) 07/31/24 11:00 Anion Gap 9 (3-11) 07/31/24 11:00 BUN 34 mg/dl (6-23) H 07/31/24 11:00 Creatinine 0.90 mg/dl (0.6-1.4) 07/31/24 11:00 Est Cr Clr Drug Dosing 64.4 ml/min 07/31/24 11:00 eGFR 85.80 07/31/24 11:00 BUN/Creatinine Ratio 37.8 (10-20) H 07/31/24 11:00 Glucose 157 mg/dl (70-99(Fasting)) H 07/31/24 11:00 POC Glucose 126 mg/dl (70-99) H 07/31/24 17:51 Calcium 9.3 mg/dl (8.6-10.3) 07/31/24 11:00 Magnesium 2.4 mg/dl (1.7-2.4) 07/31/24 11:00 Total Bilirubin 1.4 mg/dl (0.2-1.0) H 07/31/24 11:00 AST 25 U/L (13-39) 07/31/24 11:00 ALT 23 U/L (7-52) 07/31/24 11:00 Alkaline Phosphatase 37 U/L (34-104) 07/31/24 11:00 Troponin I High Sens 9.2 pg/ml (0-20) 07/31/24 11:00 B-Natriuretic Peptide 212 pg/ml (0-100) H 07/31/24 11:00 Total Protein 6.7 gm/dl (6.0-8.3) 07/31/24 11:00 Albumin 4.1 gm/dl (3.4-5.0) 07/31/24 11:00 Globulin 2.6 gm/dl (2.5-4.0) 07/31/24 11:00 Albumin/Globulin Ratio 1.6 (0.9-2) 07/31/24 11:00 TSH 1.402 uIu/ml (0.300-4.500) 07/31/24 11:00 Urine Color Dark Yellow 07/31/24 11:56 Urine Appearance Clear (Clear) 07/31/24 11:56 Urine pH 5.0 (4.5-7.5) 07/31/24 11:56 Ur Specific [place] 1.033 (1.000-1.030) H 07/31/24 11:56 Urine Protein 1+ (Negative) H 07/31/24 11:56 Urine Glucose (UA) 2+ (Negative) H 07/31/24 11:56 Urine Ketones Trace (Negative) H 07/31/24 11:56 Urine Blood Negative (Negative) 07/31/24 11:56 Urine Nitrite Negative (Negative) 07/31/24 11:56 Urine Bilirubin 1+ (Negative) H 07/31/24 11:56 Urine Urobilinogen Negative (Negative) 07/31/24 11:56 Ur Leukocyte Esterase Negative (Negative) 07/31/24 11:56 Urine WBC (Auto) 0-5 /hpf (0-5) 07/31/24 11:56 Urine RBC (Auto) 0-2 /hpf (0-2) 07/31/24 11:56 U Hyaline Cast (Auto) 6-10 /lpf (0-2) H 07/31/24 11:56 U Epithel Cells (Auto) 6-10 /hpf (0-2) H 07/31/24 11:56 Urine Bacteria (Auto) None Seen (None Seen) 07/31/24 11:56 Impressions Chest X-Ray 07/31/24 10:21 XR chest 1V portable CLINICAL HISTORY: weakness TECHNIQUE: Single frontal radiograph of the chest was obtained. Comparison: Comparison is made to chest radiograph 07/30/2024 FINDINGS: No lines and tubes are seen. Cardiomegaly is noted. The aortic arch is calcified. Reticular interstitial opacities are seen. Cannot exclude small bilateral pleural effusions. IMPRESSION: Possible small bilateral pleural effusions. ACT 112: Negative or not required by law. Electronically signed by: Shaji Black M.D. 07/31/2024 10:47 AM Venous Doppler Study 07/31/24 10:21 US venous doppler LE CLINICAL HISTORY: swelling, bruising over medial lowe leg TECHNIQUE: Left lower extremity real-time compression venous ultrasound with Color Doppler imaging. Utilizing real-time ultrasonic imaging multiple real time high-resolution ultrasonic images with compression and noncompression maneuvers of the deep venous system in addition to color doppler imaging were performed from the common femoral vein through the proximal calf veins. COMPARISON: None available at the time of this dictation. FINDINGS/IMPRESSION: No deep venous thrombus, there is normal compressibility of the deep venous system from the common femoral vein through the proximal calf veins. No superficial venous thrombosis is identified. Soft tissue edema is seen. ACT 112: Negative or not required by law. Electronically signed by: Shaji Black M.D. 07/31/2024 12:30 PM (1) Traumatic hematoma of left lower leg Encounter type: initial encounter Qualified Code(s): S80.12XA - Contusion of left lower leg, initial encounter
[2024-07-31] MEDS: INSULIN ASPART PER UNIT CHARGE SC SCH (18:12)
[2024-07-31] MEDS: GABAPENTIN 300 MG CAP PO SCH (20:55)
[2024-07-31] MEDS: METOPROLOL SUCC 50MG EXT REL TAB PO SCH (20:55)
[2024-07-31] MEDS: predniSONE 5 MG TAB PO SCH (20:55)
[2024-07-31] MEDS ORDERED: APIXABAN 5 MG TABLET PO SCH (21:00)
[2024-08-01] MEDS: ACETAMINOPHEN 325 MG TAB PO PRN (04:48)
[2024-08-01 05:10] LABS: Hematocrit (blood only) 34.5 % (42.0-52.0); Hemoglobin 11.4 g/dl (14.0-18.0); Mean Corpuscular Hemoglobin 33.8 pg (25.0-34.0); Mean Corpuscular Volume 102.4 fL (80.0-100.0); Mean Platelet Volume 11.9 fL (9.4-12.4); Nucleated RBC # (auto) 0.02 K/uL (0.00-0.12); Nucleated RBC % (auto) 0.2 %; Platelet Count 161 K/uL (130-400); RDW Coefficient of Variation 16.1 % (11.5-14.5); RDW Standard Deviation 60.9 fL (36.4-46.3); Red Blood Count 3.37 M/uL (4.70-6.10); White Blood Count 12.74 K/ul (4.8-10.8)
[2024-08-01 05:27] LABS: BUN Creatinine Ratio 31.6 (10-20); Calcium 8.9 mg/dl (8.6-10.3); Creatinine Clr Calc Pharmacy 59.1 ml/min; Potassium 4.4 mmol/L (3.5-5.1)
[2024-08-01 07:17] LABS: Estimated Average Glucose 197 mg/dl; Hemoglobin A1C 8.5 % (4.5-5.6)
[2024-08-01] MEDS: FLUTICASONE/VILANTEROL 100/25MCG 14 PUFFS/INHALER INH SCH (07:53)
[2024-08-01] MEDS: CHOLECALCIFEROL 25 MCG (1000 UNITS) TAB PO SCH (07:53)
[2024-08-01] MEDS: CYANOCOBALAMIN (B-12) 500 MCG TABLET PO SCH (07:54)
[2024-08-01] MEDS: FINASTERIDE 5 MG TAB PO SCH (07:54)
[2024-08-01] MEDS: SPIRONOLACTONE 25 MG TAB PO SCH (07:55)
[2024-08-01] MEDS: ROSUVASTATIN CALCIUM 20 MG TAB PO SCH (07:55)
[2024-08-01] MEDS: PANTOprazole 40 MG TAB PO SCH (07:55)
[2024-08-01] MEDS: FUROSEMIDE 40 MG/4 ML VIAL IV SCH ×2 (07:58→16:28)
--- NOTE | 2024-08-01 11:24 | Orthopedic Progress Note ---
Date of Service August 01, 2024 Assessment & Plan (1) Traumatic hematoma of left lower leg: Plan: IMPRESSION: LLE Hematoma will treat conservatively RICE, Apply ice to left lower leg Monitor dressings for saturation Weightbearing as tolerated with walker assistance Pain controlled p.o. medication Continue wound care per wound care team PT/OT Roman stocking on right lower extremity Will continue to follow while inpatient Continue care per Hospitalist service Admission and Anticipated Discharge Date Admission Date: July 31, 2024 Subjective Legs feel like stumps Physical Exam Physical Exam: Left lower leg: Moderate sized hematoma to medial aspect of mid lower leg with ecchymosis, soft, size unchanged. Open ulceration to anterior lower leg dressed with adaptic and Aquacel. Also dressing over anterior knee abrasion. Ecchymosis and edema to entire dorsum of foot with ecchymosis at base of each. Patient is able to perform active straight leg raise test. He is able to actively dorsi and plantarflex foot, and can wiggle his toes. Sensation to light touch is diminished over the toes, but unchanged. His peripheral pulses are 1+. He is neurovascularly intact in the left lower extremity. ++ tenderness to palpation calf. Results & Data Vital Signs (Past 12 Hours) Vital Signs Temp Pulse Pulse Pulse Resp BP BP 08/01/24 10:56 100 H 08/01/24 09:33 36.5 C 105 H 22 129/88 08/01/24 07:18 93 H 08/01/24 07:03 119 H 22 104/67 08/01/24 06:00 96 H 20 109/72 08/01/24 02:03 101 H 18 121/83 08/01/24 01:50 100 H 18 121/83 Pulse Ox O2 Del Method 08/01/24 10:56 08/01/24 09:33 97 Room Air 08/01/24 07:18 08/01/24 07:03 94 Room Air 08/01/24 06:00 98 Room Air 08/01/24 02:03 96 Room Air 08/01/24 01:50 95 Laboratory Results Laboratory Results WBC 12.74 K/ul (4.8-10.8) H 08/01/24 04:49 RBC 3.37 M/uL (4.70-6.10) L 08/01/24 04:49 Hgb 11.4 g/dl (14.0-18.0) L 08/01/24 04:49 Hct 34.5 % (42.0-52.0) L 08/01/24 04:49 MCV 102.4 fL (80.0-100.0) H 08/01/24 04:49 MCH 33.8 pg (25.0-34.0) 08/01/24 04:49 MCHC 33.0 g/dL (32.0-36.0) 08/01/24 04:49 RDW Std Deviation 60.9 fL (36.4-46.3) H 08/01/24 04:49 RDW Coeff of Roxanna 16.1 % (11.5-14.5) H 08/01/24 04:49 Plt Count 161 K/uL (130-400) 08/01/24 04:49 MPV 11.9 fL (9.4-12.4) 08/01/24 04:49 Immature Gran % (Auto) 2.0 % 07/31/24 11:00 Neut % (Auto) 74.5 % 07/31/24 11:00 Lymph % (Auto) 14.2 % 07/31/24 11:00 [place] % (Auto) 8.6 % 07/31/24 11:00 Eos % (Auto) 0.4 % 07/31/24 11:00 Baso % (Auto) 0.3 % 07/31/24 11:00 Neut # (Auto) 7.23 K/uL (1.40-6.50) H 07/31/24 11:00 Lymph # (Auto) 1.38 K/uL (1.20-3.40) 07/31/24 11:00 [place] # (Auto) 0.83 K/uL (0.11-0.59) H 07/31/24 11:00 Eos # (Auto) 0.04 K/uL (0.00-0.50) 07/31/24 11:00 Baso # (Auto) 0.03 K/uL (0.00-0.20) 07/31/24 11:00 Immature Gran # (Auto) 0.19 K/uL (0.01-0.20) 07/31/24 11:00 Absolute Nucleated RBC 0.02 K/uL (0.00-0.12) 08/01/24 04:49 Nucleated RBC % (auto) 0.2 % 08/01/24 04:49 Sodium 137 mmol/L (136-145) 08/01/24 04:49 Potassium 4.4 mmol/L (3.5-5.1) 08/01/24 04:49 Chloride 102 mmol/L (98-107) 08/01/24 04:49 Carbon Dioxide 23 mmol/L (21-32) 08/01/24 04:49 Anion Gap 12 (3-11) H 08/01/24 04:49 BUN 31 mg/dl (6-23) H 08/01/24 04:49 Creatinine 0.98 mg/dl (0.6-1.4) 08/01/24 04:49 Est Cr Clr Drug Dosing 59.1 ml/min 08/01/24 04:49 eGFR 77.47 08/01/24 04:49 BUN/Creatinine Ratio 31.6 (10-20) H 08/01/24 04:49 Glucose 151 mg/dl (70-99(Fasting)) H 08/01/24 04:49 POC Glucose 153 mg/dl (70-99) H 08/01/24 08:01 Estimat Average Glucose 197 mg/dl 08/01/24 04:49 Hemoglobin A1c 8.5 % (4.5-5.6) H 08/01/24 04:49 Calcium 8.9 mg/dl (8.6-10.3) 08/01/24 04:49 Magnesium 2.4 mg/dl (1.7-2.4) 07/31/24 11:00 Total Bilirubin 1.4 mg/dl (0.2-1.0) H 07/31/24 11:00 AST 25 U/L (13-39) 07/31/24 11:00 ALT 23 U/L (7-52) 07/31/24 11:00 Alkaline Phosphatase 37 U/L (34-104) 07/31/24 11:00 Troponin I High Sens 9.2 pg/ml (0-20) 07/31/24 11:00 B-Natriuretic Peptide 212 pg/ml (0-100) H 07/31/24 11:00 Total Protein 6.7 gm/dl (6.0-8.3) 07/31/24 11:00 Albumin 4.1 gm/dl (3.4-5.0) 07/31/24 11:00 Globulin 2.6 gm/dl (2.5-4.0) 07/31/24 11:00 Albumin/Globulin Ratio 1.6 (0.9-2) 07/31/24 11:00 TSH 1.402 uIu/ml (0.300-4.500) 07/31/24 11:00 Urine Color Dark Yellow 07/31/24 11:56 Urine Appearance Clear (Clear) 07/31/24 11:56 Urine pH 5.0 (4.5-7.5) 07/31/24 11:56 Ur Specific [place] 1.033 (1.000-1.030) H 07/31/24 11:56 Urine Protein 1+ (Negative) H 07/31/24 11:56 Urine Glucose (UA) 2+ (Negative) H 07/31/24 11:56 Urine Ketones Trace (Negative) H 07/31/24 11:56 Urine Blood Negative (Negative) 07/31/24 11:56 Urine Nitrite Negative (Negative) 07/31/24 11:56 Urine Bilirubin 1+ (Negative) H 07/31/24 11:56 Urine Urobilinogen Negative (Negative) 07/31/24 11:56 Ur Leukocyte Esterase Negative (Negative) 07/31/24 11:56 Urine WBC (Auto) 0-5 /hpf (0-5) 07/31/24 11:56 Urine RBC (Auto) 0-2 /hpf (0-2) 07/31/24 11:56 U Hyaline Cast (Auto) 6-10 /lpf (0-2) H 07/31/24 11:56 U Epithel Cells (Auto) 6-10 /hpf (0-2) H 07/31/24 11:56 Urine Bacteria (Auto) None Seen (None Seen) 07/31/24 11:56 Impressions Chest X-Ray 07/31/24 10:21 XR chest 1V portable CLINICAL HISTORY: weakness TECHNIQUE: Single frontal radiograph of the chest was obtained. Comparison: Comparison is made to chest radiograph 07/30/2024 FINDINGS: No lines and tubes are seen. Cardiomegaly is noted. The aortic arch is calcified. Reticular interstitial opacities are seen. Cannot exclude small bilateral pleural effusions. IMPRESSION: Possible small bilateral pleural effusions. ACT 112: Negative or not required by law. Electronically signed by: Shaji Black M.D. 07/31/2024 10:47 AM Venous Doppler Study 07/31/24 10:21 US venous doppler LE CLINICAL HISTORY: swelling, bruising over medial lowe leg TECHNIQUE: Left lower extremity real-time compression venous ultrasound with Color Doppler imaging. Utilizing real-time ultrasonic imaging multiple real time high-resolution ultrasonic images with compression and noncompression maneuvers of the deep venous system in addition to color doppler imaging were performed from the common femoral vein through the proximal calf veins. COMPARISON: None available at the time of this dictation. FINDINGS/IMPRESSION: No deep venous thrombus, there is normal compressibility of the deep venous system from the common femoral vein through the proximal calf veins. No superficial venous thrombosis is identified. Soft tissue edema is seen. ACT 112: Negative or not required by law. Electronically signed by: Shaji Black M.D. 07/31/2024 12:30 PM
--- NOTE | 2024-08-01 11:48 | Hospitalist Progress Note ---
Date of Service August 01, 2024 Assessment & Plan (1) Traumatic hematoma of left lower leg: (2) Cellulitis of left leg: (3) Recurrent falls: Plan: 79-year-old male with PMH HTN, persistent atrial fibrillation anticoagulated on Eliquis, paroxysmal SVT, DM II, chronic anemia, rheumatoid arthritis, leg wounds presented to ER with c/o LE edema and discomfort with left leg edema worse and past 2 days tender and ecchymotic area to LLE. History fall 3 days prior to presentation 07/30/2024 left tibia/fibula x-ray that did not show any acute fracture. Venous doppler without acute DVT Pain control Mild hematoma/ecchymoses on medial left leg Ortho eval and recs noted. Discussed with Dr Cherry via TT. Ok to resume home eliquis Fall precautions PT/OT eval Cefepime changed to ceftriaxone Wound care consult. Continue wound dressing (4) Acute on chronic heart failure with preserved ejection fraction (HFpEF): Plan: BNP:212 CXR: possible small pleural effusion. No overt pulmonary congestion noted Low sodium diet Increased IV lasix 40mg to BID Continue home spironolactone TTE 07/31/24: mild conc LVH, EF 65-70%, Mod dil LA, mild to mod MR Cardiology consult (5) Atrial fibrillation: Plan: History persistent A-Fib Paroxysmal SVT Borderline tachybrady syndrome Monitor on telemetry Continue metoprolol succinate Eliquis resumed as aove (6) Diabetes mellitus, type II: Plan: A1c: 7.5 on 03/26/24 Not on medication Novolog sliding scale per protocol Diabetic diet A1c is 8.5 Provided education. Plan to start on metformin on dc (7) COPD (chronic obstructive pulmonary disease): Plan: No signs acute exacerbation Continue home inhalers (8) HLD (hyperlipidemia): Plan: Continue rosuvastatin (9) Rheumatoid arthritis: Plan: On Chronic prednisone Continue prednisone (10) Chronic anemia: Plan: History B12 deficiency Hb.3 (baseline 11-12) Continue B12 supplement (11) BPH (benign prostatic hyperplasia): Plan: Continue finasteride DVT Prophylaxis Eliquis Full Code I spent a total of 60 minutes coordinating, documenting and providing care for this patient excluding time spent in performance of separately billed services Admission and Anticipated Discharge Date Admission Date: July 31, 2024 Subjective Patient seen and examined Reports left leg pain States left leg swelling is improving with diuresis and compression dressing Reported he had bilateral leg swelling for sometime and worsened especially on left leg within last few days after fall on his knees Reports chronic exertional dyspnea Denied chest pain, cough, PND Denied fever, chills, nausea, vomiting Physical Exam Constitutional: + well hydrated; no acute distress Eyes: PERRL, conjunctivae normal, anicteric sclerae ENMT: external ear and nose normal, oropharynx normal Respiratory: Not in respiratory distress, diminished breath sounds lung bases Cardiovascular: Rate/Rhythm: + irregularly irregular S1 S2 Gastrointestinal (Abdomen): normal bowel sounds, soft, nontender, no hepatosplenomegaly Musculoskeletal: Bilateral pitting pedal edema Left leg: wound on anterior salgado. Ecchymoses/small hematoma on medial aspect of leg. Erythema/tenderness Dressing over wound on forearm (from fall per patient) Neurologic: PERRL, EOMI, accommodation nl, no face palsy, no dysarthria Psychiatric: A+Ox3, euthymic affect Results & Data Results & Data Vital Signs (Past 12 Hours) Vital Signs Temp Pulse Pulse Pulse Resp BP BP 08/01/24 10:56 100 H 08/01/24 09:33 36.5 C 105 H 22 129/88 08/01/24 07:18 93 H 08/01/24 07:03 119 H 22 104/67 08/01/24 06:00 96 H 20 109/72 08/01/24 02:03 101 H 18 121/83 08/01/24 01:50 100 H 18 121/83 Pulse Ox O2 Del Method 08/01/24 10:56 08/01/24 09:33 97 Room Air 08/01/24 07:18 08/01/24 07:03 94 Room Air 08/01/24 06:00 98 Room Air 08/01/24 02:03 96 Room Air 08/01/24 01:50 95 Laboratory Results Abnormal lab results 07/31/24 07/31/24 08/01/24 Range/Units 17:51 21:00 04:49 WBC 12.74 H (4.8-10.8) K/ul RBC 3.37 L (4.70-6.10) M/uL Hgb 11.4 L (14.0-18.0) g/dl Hct 34.5 L (42.0-52.0) % MCV 102.4 H (80.0-100.0) fL RDW Std Deviation 60.9 H (36.4-46.3) fL RDW Coeff of Roxanna 16.1 H (11.5-14.5) % Anion Gap 12 H (3-11) BUN 31 H (6-23) mg/dl BUN/Creatinine Ratio 31.6 H (10-20) Glucose 151 H (70-99(Fasting)) mg/dl POC Glucose 126 H 125 H (70-99) mg/dl Hemoglobin A1c 8.5 H (4.5-5.6) % 08/01/24 08/01/24 Range/Units 08:01 12:23 WBC (4.8-10.8) K/ul RBC (4.70-6.10) M/uL Hgb (14.0-18.0) g/dl Hct (42.0-52.0) % MCV (80.0-100.0) fL RDW Std Deviation (36.4-46.3) fL RDW Coeff of Roxanna (11.5-14.5) % Anion Gap (3-11) BUN (6-23) mg/dl BUN/Creatinine Ratio (10-20) Glucose (70-99(Fasting)) mg/dl POC Glucose 153 H 217 H (70-99) mg/dl Hemoglobin A1c (4.5-5.6) %
[2024-08-01] MEDS: cefTRIAXone SODIUM 1,000 MG/50 ML BAG IV SCH (13:24)
--- NOTE | 2024-08-01 13:41 | Cardiology Consultation ---
Date of Consultation August 01, 2024 Assessment & Plan (1) Heart failure, diastolic, with acute decompensation: (2) Atrial fibrillation with rapid ventricular response: (3) Traumatic hematoma of left lower leg: (4) Cellulitis of left leg: Plan Acute decompensated right heart failure signs and symptoms, HFpEF. Agree with utilization of IV furosemide at 40 mg BID. Continue spironolactone. Supplement potassium as needed. Follow labs daily. Strict I/O's. Catheter in place, needed. Recommend nocturnal pulse oximetry to evaluate for nocturnal hypoxemia and screen for sleep apnea. Persistent atrial fibrillation/flutter. Rates mildly elevated as expected given acute illness. Continue metoprolol succinate 50 mg twice a day. If additional heart rate control is needed after diuresis would reconsider addition of low dose digoxin. [id number] Score 5 points. Continue apixaban (Eliquis), 5 mg twice a day dosing appropriate. History of borderline Tachy-Terry Syndrome. Continue telemetry. No bradycardia or pauses observed thus far. Dyslipidemia. LDL 49 mg/dL in February 2024. Continue rosuvastatin 20 mg/day. Supervising Physician Co-Signing Physician Notes Patient was seen and personally examined. Full assessment and plan as outlined above. Patient care and management discussed in detail and personally endorsed Patient is an 79-year-old male with chronic heart failure with preserved eje ction fraction, right heart failure and atrial fibrillation, persistent. Admitted with right lower extremity edema with hematoma poorly healing lower extremity ulceration Patient responded to IV diuretics as above will continue during in-hospital stay Cardiology will continue to follow History of Present Illness Reason for Consultation: Acute on chronic heart failure Requesting Physician: Dr. Opal Morales MD Attending Physician: Dr. Opal Morales MD History of Present Illness Mr. Anil Peña is an 79-year-old male who presented to the [facility] ER on July 31, 2024 with complaints of left greater than right lower extremity peripheral edema, acute on chronic dyspnea, and weight gain. EKG on presentation revealed atrial fibrillation with a ventricular rate of 87 bpm with nonspecific STT wave changes inferiorly and laterally. QTc normal at 438 ms. Chest x-ray was interpreted by the radiologist as revealing possible small bilateral pleural effusions. Venous duplex negative for DVT on the left. 40 mg IV furosemide administered in the ER and again this morning, now increased to twice per day. Considerable diuresis and improvement in lower extremity peripheral edema since admission. Condom catheter now in place after initial issues with incontinence. Patient notes progressive left greater than right lower extremity peripheral edema over the last weeks to 2 to 3 months. Shortness of breath precludes him from performing activities of daily living with patient noting inability to walk to the bathroom without needing to stop and rest. Patient denies chest pain or discomfort. No overt palpitations. Denies abdominal bloating, penile/scrotal edema, orthopnea, or PND. No dizziness or syncope. No fevers or chills. No melena or hematochezia. Past Medical and Surgical History: Persistent atrial fibrillation/flutter [id number] Score 6 points Borderline Tachy-Terry Syndrome Chronic diastolic heart failure COPD Peripheral neuropathy Chronic macrocytic anemia Rheumatoid arthritis on chronic prednisone therapy BPH Osteoarthritis Edentulous Hernia repair Prior thoracotomy with exploration Family History: Mother lived into her 90s and of old age. Father with CAD. Uncle with CAD. Social History: Reformed smoker having quit greater than 50 years ago. Smokeless tobacco user, 1 can every 3 days. No significant alcohol use. No illegal drug use. Lives alone in [place]. Son lives next door. Two daughters, one in [place] and one in [place]. Allergies Allergy/AdvReac Type Severity Reaction Status Date / Time No Known Allergies Allergy Verified 07/31/24 08:33 Home Medications Medication Instructions Recorded Confirmed Type finasteride 5 mg tablet 5 mg PO DAILY 04/25/20 07/31/24 History gabapentin 300 mg capsule 300 mg PO BID 04/25/20 07/31/24 History prednisone 5 mg tablet 5 mg PO BID 04/25/20 07/31/24 History spironolactone 25 mg tablet 25 mg PO QAM 04/25/20 07/31/24 History cholecalciferol (vitamin D3) 25 50 mcg PO DAILY 07/30/20 07/31/24 History mcg (1,000 unit) tablet (Vitamin D3) apixaban 5 mg tablet 5 mg PO BID 12/31/22 07/31/24 History pantoprazole 40 mg tablet,delayed 40 mg PO QAM 12/31/22 07/31/24 History release cyanocobalamin (vitamin B-12) 1,000 mcg PO DAILY 01/31/24 07/31/24 History 1,000 mcg tablet (Vitamin B-12) fluticasone 500 mcg-salmeterol 50 1 inh inhalation BID 01/31/24 07/31/24 History mcg/dose blistr powdr for inhalation (Wixela Inhub) furosemide 40 mg tablet 40 mg PO QAM #30 tabs 02/08/24 07/31/24 Rx metoprolol succinate 50 mg 50 mg PO BID #60 tabs 02/08/24 07/31/24 Rx tablet,extended release 24 hr rosuvastatin 20 mg tablet 20 mg PO QAM 03/25/24 07/31/24 History oxycodone 5 mg tablet 5 mg PO Q4H PRN pain #30 tabs 03/28/24 07/31/24 Rx Patient History Medical History Hx of sepsis treated at [facility] 05/2024 > resolved per pt History of COVID-2019 History of COPD no res inh, controlled with routine inh per pt History of pneumonia treated at [facility] 05/13/24 was overnight obs per pt, no further issues, breathing is better per pt CHF (congestive heart failure) controlled at present per pt, follows with Dr. Denny Cellulitis present to left lower leg > sees wound clinic weekly Hx of peripheral neuropathy Ascending aorta enlargement follows with Dr. Denny, pt unaware of details Surgical History Hx of cataract extraction right History of tooth extraction History of colonoscopy History of thoracotomy remote hx H/O inguinal hernia repair Family History Father Heart disease Social History Smoking Status: Never smoker Tobacco Type: Smokeless Tobacco (Dip or Chew) Cigarettes Per Day: 1 PPD; Second Hand Exposure: No; Do You Dip or Chew Tobacco: Yes; Tobacco Cessation Education Requested by Patient: No Hx Alcohol Use: No Hx Substance Use: No Preferred Language: Chadian Communication Ability: Effective Visual Impairment: Limited Hearing Ability: Hard of Hearing [employer] Asset Protection Specialist Required: No Beliefs That Will Affect Care: None marital status: / Current Living Situation: Alone Current Living Situation Comment: Lives alone, son lives in close proximity current occupational status: retired How many Children do You have: 3 How many Children do You have Comment: All children live close and one son that lives closest is able to assist Other Information That Helps Us Care for You: No Feels Safe at Home: Yes Safety Concerns: Feels Safe At This Time Diet: regular during the past year weight has: remained stable Assistive Devices: Cane and Walker Review of Systems Review of Systems: Complete Review of Systems is as stated above, negative, or noncontributory Physical Exam Physical Exam: General: A&Ox3. NAD. Hard of hearing HENT: Normocephalic. Atraumatic. Eyes: PER. Conjunctiva pink, sclera clear. Neck: + JVD. Heart: Irregularly irregular at 110 bpm. Grade 2/6 systolic murmur. No diastolic murmur. No rub. Lungs: Diminished. Decreased. Absent breath sounds at the bases bilaterally. No wheeze. Abdomen: +BS. Somewhat firm. Nontender. No organomegaly. Extremities: 1-2+ left greater than right lower extremity peripheral edema. Hematoma on the mid medial left salgado. Erythema suggesting cellulitis on the left. Limited neurological examination is without focal deficits. Pulses: radial=2/4, posterior tibial=0/4. Results & Data Vital Signs (Past 12 Hours) Vital Signs Temp Pulse Pulse Pulse Resp BP BP 08/01/24 11:58 36.3 C L 100 H 18 120/77 08/01/24 10:56 100 H 08/01/24 09:33 36.5 C 105 H 22 129/88 08/01/24 07:18 93 H 08/01/24 07:03 119 H 22 104/67 08/01/24 06:00 96 H 20 109/72 08/01/24 02:03 101 H 18 121/83 08/01/24 01:50 100 H 18 121/83 Pulse Ox O2 Del Method 08/01/24 11:58 99 Room Air 08/01/24 10:56 08/01/24 09:33 97 Room Air 08/01/24 07:18 08/01/24 07:03 94 Room Air 08/01/24 06:00 98 Room Air 08/01/24 02:03 96 Room Air 08/01/24 01:50 95 Laboratory Results CBC 08/01/24 Range/Units 04:49 WBC 12.74 H (4.8-10.8) K/ul RBC 3.37 L (4.70-6.10) M/uL Hgb 11.4 L (14.0-18.0) g/dl Hct 34.5 L (42.0-52.0) % Plt Count 161 (130-400) K/uL Comprehensive Metabolic Panel 08/01/24 Range/Units 04:49 Sodium 137 (136-145) mmol/L Potassium 4.4 (3.5-5.1) mmol/L Chloride 102 (98-107) mmol/L Carbon Dioxide 23 (21-32) mmol/L BUN 31 H (6-23) mg/dl Creatinine 0.98 (0.6-1.4) mg/dl Glucose 151 H (70-99(Fasting)) mg/dl Calcium 8.9 (8.6-10.3) mg/dl Intake and Output 07/31/24 08/01/24 08/01/24 22:59 06:59 14:59 Output Total 200 / 350 150 / 350 Balance -200 / -250 -150 / -250 Output: Urine 200 / 200 Other 150 / 150 Other: Weight 80 kg 80 kg Weight Measurement Method Chair Scale Diagnostic Findings Admission EKG: As above. July 31, 2024 TTE Interpretation Summary ([facility], Dr. Denny): Atrial fibrillation is present during hte study, 90-110 bpm. Normal size LV. Mild concentric LVH. Normal LV wall motion. LVEF 65-70%. Moderately dilated left atrium. Moderate aortic valve sclerosis without significant stenosis. Mild to moderate mitral regurgitation. Telemetry: Atrial fibrillation with heart rate predominantly in the 90s to 110 bpm range. No significant bradycardia. No pauses.
[2024-08-01] MEDS: oxyCODONE HCL IR 5 MG TAB (IMMEDIATE RELEASE) PO PRN (15:08)
[2024-08-01] MEDS: APIXABAN 5 MG TABLET PO SCH (20:20)
[2024-08-01] MEDS: PHENAZOPYRIDINE HCL 200 MG TAB PO PRN (21:38)
[2024-08-02 08:51] LABS: Hematocrit (blood only) 34.1 % (42.0-52.0); Hemoglobin 11.3 g/dl (14.0-18.0); Mean Corpuscular Hemoglobin 33.7 pg (25.0-34.0); Mean Corpuscular Hgb Conc 33.1 g/dL (32.0-36.0); Mean Corpuscular Volume 101.8 fL (80.0-100.0); Mean Platelet Volume 11.7 fL (9.4-12.4); Platelet Count 147 K/uL (130-400); RDW Standard Deviation 60.5 fL (36.4-46.3); Red Blood Count 3.35 M/uL (4.70-6.10); White Blood Count 10.75 K/ul (4.8-10.8)
[2024-08-02 09:06] LABS: BUN Creatinine Ratio 32.2 (10-20); Calcium 8.6 mg/dl (8.6-10.3); Creatinine Clr Calc Pharmacy 72.5 ml/min; Magnesium 2.2 mg/dl (1.7-2.4); Phosphorus 2.8 mg/dl (2.5-4.9); Potassium 3.8 mmol/L (3.5-5.1)
--- NOTE | 2024-08-02 09:50 | Orthopedic Progress Note ---
Date of Service August 02, 2024 Assessment & Plan (1) Traumatic hematoma of left lower leg: Plan: IMPRESSION: LLE Hematoma will treat conservatively, patient notes improvement JET, Apply ice to left lower leg Monitor dressings for saturation Weightbearing as tolerated with walker assistance Pain controlled p.o. medication Continue wound care per wound care team PT/OT Roman stocking on right lower extremity Will sign off please TT for any further questions or concerns. Patient may follow up outpatient with his PCP or as needed with us Continue care and cellulitis treatment per Hospitalist service Admission and Anticipated Discharge Date Admission Date: July 31, 2024 Subjective Pt seen and examined bedside. Says his leg is feeling much better than yesterday. He has no questions or concerns this morning. Physical Exam Physical Exam: Left lower leg: Moderate sized hematoma to medial aspect of mid lower leg with ecchymosis, soft, size unchanged. Open ulceration to anterior lower leg dressed with adaptic and Aquacel. Also dressing over anterior knee abrasion. Ecchymosis and edema to entire dorsum of foot with ecchymosis at base of each. Patient is able to perform active straight leg raise test. He is able to actively dorsi and plantarflex foot, and can wiggle his toes. He can flex and extend his knee active and pain free. Sensation to light touch is diminished over the toes, but unchanged. His peripheral pulses are 1+. He is neurovascularly intact in the left lower extremity. ++ tenderness to palpation calf. Results & Data Vital Signs (Past 12 Hours) Vital Signs Temp Pulse Pulse Resp BP Pulse Ox O2 Del Method 08/02/24 08:10 Room Air 08/02/24 07:24 36.3 C L 99 H 20 117/81 96 Room Air 08/02/24 07:00 97 H 08/02/24 03:37 37 C 116 H 16 105/61 94 Room Air 08/01/24 23:06 36.8 C 114 H 18 128/86 97 Room Air 08/01/24 21:51 116 H
--- NOTE | 2024-08-02 11:06 | Hospitalist Progress Note ---
Date of Service August 02, 2024 Assessment & Plan (1) Traumatic hematoma of left lower leg: (2) Cellulitis of left leg: (3) Recurrent falls: Plan: 79-year-old male with PMH HTN, persistent atrial fibrillation anticoagulated on Eliquis, paroxysmal SVT, DM II, chronic anemia, rheumatoid arthritis, leg wounds presented to ER with c/o LE edema and discomfort with left leg edema worse and past 2 days tender and ecchymotic area to LLE. History fall 3 days prior to presentation 07/30/2024 left tibia/fibula x-ray that did not show any acute fracture. Venous doppler without acute DVT Pain is better controlled Mild hematoma/ecchymoses on medial left leg Ortho eval and recs noted. Fall precautions Awaiting PT/OT eval Continue IV ceftriaxone Wound care consult. Continue wound dressing (4) Acute on chronic heart failure with preserved ejection fraction (HFpEF): Plan: BNP:212 CXR: possible small pleural effusion. No overt pulmonary congestion noted Low sodium diet Continue IV lasix 40mg to BID Continue home spironolactone TTE 07/31/24: mild conc LVH, EF 65-70%, Mod dil LA, mild to mod MR Cardiology eval and recs noted (5) Atrial fibrillation: Plan: History persistent A-Fib Paroxysmal SVT Borderline tachybrady syndrome Monitor on telemetry Continue metoprolol succinate and eliquis (6) Diabetes mellitus, type II: Plan: A1c: 7.5 on 03/26/24 Not on medication Novolog sliding scale per protocol Diabetic diet A1c is 8.5 Provided education. Plan to start on metformin on dc (7) COPD (chronic obstructive pulmonary disease): Plan: No signs acute exacerbation Continue home inhalers (8) HLD (hyperlipidemia): Plan: Continue rosuvastatin (9) Rheumatoid arthritis: Plan: On Chronic prednisone Continue prednisone (10) Chronic anemia: Plan: History B12 deficiency Hb.3 (baseline 11-12) Continue B12 supplement (11) BPH (benign prostatic hyperplasia): Plan: Continue finasteride DVT Prophylaxis Eliquis Full Code I spent a total of 50 minutes coordinating, documenting and providing care for this patient excluding time spent in performance of separately billed services Admission and Anticipated Discharge Date Admission Date: July 31, 2024 Subjective Patient seen and examined Reports left leg pain is improving Reports leg swelling is much improved Denied any other new complaints Physical Exam Constitutional: + well hydrated; no acute distress Eyes: PERRL, conjunctivae normal, anicteric sclerae ENMT: external ear and nose normal, oropharynx normal Respiratory: On room air, not in resp distress, improved air entry Cardiovascular: Rate/Rhythm: + irregularly irregular S1 S2 Gastrointestinal (Abdomen): normal bowel sounds, soft, nontender, no hepatosplenomegaly Neurologic: PERRL, EOMI, accommodation nl, no face palsy, no dysarthria Psychiatric: A+Ox3, euthymic affect Results & Data Results & Data Vital Signs (Past 12 Hours) Vital Signs Temp Pulse Pulse Resp BP Pulse Ox O2 Del Method 08/02/24 08:10 Room Air 08/02/24 07:24 36.3 C L 99 H 20 117/81 96 Room Air 08/02/24 07:00 97 H 08/02/24 03:37 37 C 116 H 16 105/61 94 Room Air 08/01/24 23:06 36.8 C 114 H 18 128/86 97 Room Air Laboratory Results Abnormal lab results 08/01/24 08/01/24 08/02/24 Range/Units 12:23 20:31 07:47 RBC 3.35 L (4.70-6.10) M/uL Hgb 11.3 L (14.0-18.0) g/dl Hct 34.1 L (42.0-52.0) % MCV 101.8 H (80.0-100.0) fL RDW Std Deviation 60.5 H (36.4-46.3) fL RDW Coeff of Roxanna 16.0 H (11.5-14.5) % Sodium 135 L (136-145) mmol/L BUN 28 H (6-23) mg/dl BUN/Creatinine Ratio 32.2 H (10-20) Glucose 169 H (70-99(Fasting)) mg/dl POC Glucose 217 H 189 H (70-99) mg/dl 08/02/24 Range/Units 08:03 RBC (4.70-6.10) M/uL Hgb (14.0-18.0) g/dl Hct (42.0-52.0) % MCV (80.0-100.0) fL RDW Std Deviation (36.4-46.3) fL RDW Coeff of Roxanna (11.5-14.5) % Sodium (136-145) mmol/L BUN (6-23) mg/dl BUN/Creatinine Ratio (10-20) Glucose (70-99(Fasting)) mg/dl POC Glucose 166 H (70-99) mg/dl
--- NOTE | 2024-08-02 11:59 | Cardiology Progress Note ---
Date of Service August 02, 2024 Assessment & Plan (1) Heart failure, diastolic, with acute decompensation: (2) Atrial fibrillation with rapid ventricular response: (3) Traumatic hematoma of left lower leg: (4) Cellulitis of left leg: Plan Acute decompensated right heart failure, HFpEF. Measurement of I/O's not reflective of the significant improvement in volume overload as well as pain/symptoms. Renal function stable Heart rates improved following diuresis Patient received IV furosemide this AM, will transition to oral furosemide starting in AM of 08/03, increased dose of 60 mg/day Continue spironolactone 25 mg/day Supplement potassium today; may need low dose potassium supplementation on discharge Nocturnal pulse oximetry to evaluate for nocturnal hypoxemia and screen for sleep apnea. Persistent atrial fibrillation/flutter. Rates improved following diuresis. Continue metoprolol succinate 50 mg twice a day. [id number] Score 5 points. Continue apixaban (Eliquis), 5 mg twice a day dosing appropriate. History of borderline Tachy-Terry Syndrome. No bradycardia or pauses observed. Dyslipidemia. LDL 49 mg/dL in February 2024. Continue rosuvastatin 20 mg/day. Please contact with any questions or concerns. Admission and Anticipated Discharge Date Admission Date: July 31, 2024 Supervising Physician Co-Signing Physician Notes Patient was seen and personally examined. Full assessment and plan as outlined above. Patient care and management discussed in detail and personally endorsed Has had significant response to IV diuretics with near resolved lower extremity edema. Pain and distention substantially improved. Plan as above Complete IV diuretics today and switch to oral furosemide in the increased dosing, CHF instructions Subjective Patient seen and examined. Chart, medications, telemetry reviewed. Patient notes significant improvement in dyspnea as well as lower extremity edema. No chest pain or palpitations Telemetry: Atrial fibrillation, improved rate controlled following diuresis, heart rates predominantly in the 80s. Review of Systems Review of Systems: Complete Review of Systems is as stated above, negative, or noncontributory Physical Exam Physical Exam: General: A&Ox3. NAD. HENT: Normocephalic. Atraumatic. Eyes: PER. Conjunctiva pink, sclera clear. Neck: + JVD. Heart: Irregularly irregular at 86 bpm. Grade 2/6 systolic murmur. No diastolic murmur. No rub. Lungs: Diminished. Decreased. Absent breath sounds at the bases bilaterally. No wheeze. Abdomen: +BS. Less firm. Nontender. No organomegaly. Extremities: Significant improved left greater than right lower extremity peripheral edema. Improved left mid salgado hematoma. Improved erythema. Limited neurological examination is without focal deficits. Pulses: radial=2/4, posterior tibial=0/4. Results & Data Vital Signs (Past 12 Hours) Vital Signs Temp Pulse Pulse Resp BP Pulse Ox O2 Del Method 08/02/24 11:42 36.6 C 103 H 18 100/67 96 Room Air 08/02/24 08:10 Room Air 08/02/24 07:24 36.3 C L 99 H 20 117/81 96 Room Air 08/02/24 07:00 97 H 08/02/24 03:37 37 C 116 H 16 105/61 94 Room Air Laboratory Results CBC 08/02/24 Range/Units 07:47 WBC 10.75 (4.8-10.8) K/ul RBC 3.35 L (4.70-6.10) M/uL Hgb 11.3 L (14.0-18.0) g/dl Hct 34.1 L (42.0-52.0) % Plt Count 147 (130-400) K/uL Comprehensive Metabolic Panel 08/02/24 Range/Units 07:47 Sodium 135 L (136-145) mmol/L Potassium 3.8 (3.5-5.1) mmol/L Chloride 100 (98-107) mmol/L Carbon Dioxide 26 (21-32) mmol/L BUN 28 H (6-23) mg/dl Creatinine 0.87 (0.6-1.4) mg/dl Glucose 169 H (70-99(Fasting)) mg/dl Calcium 8.6 (8.6-10.3) mg/dl Intake and Output 08/01/24 08/02/24 08/02/24 22:59 06:59 14:59 Intake Total 320 / 1150 120 / 120 Output Total 750 / 1650 0 / 0 Balance -430 / -500 120 / 120 Intake: Oral 320 / 1100 120 / 120 Output: Urine 100 / 100 Urine Amount (Catheter) 650 / 1550 External 250 / 1150 [place]/Indwelling 400 / 400 # Bowel Movements 0 / 0 Other: Other Intake Source sips # Unmeasured Voids 1 Weight 86.3 kg Weight Measurement Method Built in [facility]
[2024-08-02] MEDS: POTASSIUM CHLORIDE 10 MEQ TABCR PO ONE (12:47)
--- NOTE | 2024-08-02 22:16 | Electrocardiogram Report ---
Test Reason : Blood Pressure : */* mmHG Vent. Rate : 87 BPM Atrial Rate : * BPM P-R Int : * ms QRS Dur : 70 ms QT Int : 364 ms P-R-T Axes : * 60 -43 degrees QTcB Int : 438 ms Atrial fibrillation Nonspecific ST and T wave abnormality Abnormal ECG When compared with ECG of 30-Jul-2024 18:05, No significant change Confirmed by Mikey Valente ([id number]) on 08/02/2024 10:16:19 PM Referred By: Harjit Bunch Confirmed By: Mikey Valente
[2024-08-03] MEDS: FUROSEMIDE 20 MG TAB PO SCH (08:17)
--- NOTE | 2024-08-03 09:44 | Hospitalist Progress Note ---
Date of Service August 03, 2024 Assessment & Plan (1) Traumatic hematoma of left lower leg: (2) Cellulitis of left leg: (3) Recurrent falls: Plan: 79-year-old male with PMH HTN, persistent atrial fibrillation anticoagulated on Eliquis, paroxysmal SVT, DM II, chronic anemia, rheumatoid arthritis, leg wounds presented to ER with c/o LE edema and discomfort with left leg edema worse and past 2 days tender and ecchymotic area to LLE. History fall 3 days prior to presentation 07/30/2024 left tibia/fibula x-ray that did not show any acute fracture. Venous doppler without acute DVT Pain is better controlled Mild hematoma/ecchymoses on medial left leg Ortho eval and recs noted. Fall precautions PT/OT eval noted. Rehab recommended but patient vehemently declined rehab CM to arrange HH/PT Continue IV ceftriaxone He states he follows with wound clinic and will need to continue wound clinic follow up (4) Acute on chronic heart failure with preserved ejection fraction (HFpEF): Plan: BNP:212 CXR: possible small pleural effusion. No overt pulmonary congestion noted Low sodium diet TTE 07/31/24: mild conc LVH, EF 65-70%, Mod dil LA, mild to mod MR Cardiology eval and recs noted Was treated with IV lasix 40mg to BID now changed to increased po lasix 60mg daily Continue home spironolactone (5) Atrial fibrillation: Plan: History persistent A-Fib Paroxysmal SVT Borderline tachybrady syndrome Monitor on telemetry Continue metoprolol succinate and eliquis (6) Diabetes mellitus, type II: Plan: A1c: 7.5 on 03/26/24 Not on medication Novolog sliding scale per protocol Diabetic diet A1c is 8.5 Provided education. Plan to start on metformin on dc (7) COPD (chronic obstructive pulmonary disease): Plan: No signs acute exacerbation Continue home inhalers (8) HLD (hyperlipidemia): Plan: Continue rosuvastatin (9) Rheumatoid arthritis: Plan: On Chronic prednisone Continue prednisone (10) Chronic anemia: Plan: History B12 deficiency Hb.3 (baseline 11-12) Continue B12 supplement (11) BPH (benign prostatic hyperplasia): Plan: Continue finasteride DVT Prophylaxis: Renetta Full Code Son was called and updated him I spent a total of 40 minutes coordinating, documenting and providing care for this patient excluding time spent in performance of separately billed services Admission and Anticipated Discharge Date Admission Date: July 31, 2024 Subjective Patient seen and examined Leg swelling is much improved Still has left leg pain Denied any other new complaints Physical Exam Constitutional: + well hydrated; no acute distress Eyes: PERRL, conjunctivae normal, anicteric sclerae ENMT: external ear and nose normal, oropharynx normal Respiratory: normal respiratory effort, lungs clear to auscultation Cardiovascular: Rate/Rhythm: + irregularly irregular Gastrointestinal (Abdomen): normal bowel sounds, soft, nontender, no hepatosplenomegaly Musculoskeletal: Bilateral pitting pedal edema improved Left leg: wound on anterior salgado. Hematoma on medial aspect of leg. Erythema/tenderness Neurologic: PERRL, EOMI, accommodation nl, no face palsy, no dysarthria Psychiatric: A+Ox3, euthymic affect Results & Data Results & Data Vital Signs (Past 12 Hours) Vital Signs Temp Pulse Pulse Resp BP Pulse Ox O2 Del Method 08/03/24 07:36 36.7 C 100 H 18 124/81 96 Room Air 08/03/24 03:20 36.5 C 99 H 16 110/74 93 Room Air 08/02/24 22:59 37.4 C 119 H 18 121/81 08/02/24 21:58 112 H Laboratory Results Abnormal lab results 08/02/24 08/02/24 08/02/24 Range/Units 12:24 17:14 20:07 POC Glucose 181 H 206 H 180 H (70-99) mg/dl 08/03/24 Range/Units 08:12 POC Glucose 192 H (70-99) mg/dl
[2024-08-03 09:54] LABS: Hematocrit (blood only) 34.1 % (42.0-52.0); Hemoglobin 11.4 g/dl (14.0-18.0); Mean Corpuscular Hgb Conc 33.4 g/dL (32.0-36.0); Mean Corpuscular Volume 101.8 fL (80.0-100.0); Mean Platelet Volume 11.8 fL (9.4-12.4); Platelet Count 172 K/uL (130-400); RDW Coefficient of Variation 15.9 % (11.5-14.5); Red Blood Count 3.35 M/uL (4.70-6.10); White Blood Count 10.55 K/ul (4.8-10.8)
[2024-08-03 10:06] LABS: BUN Creatinine Ratio 31.8 (10-20); Calcium 8.9 mg/dl (8.6-10.3); Creatinine Clr Calc Pharmacy 74.3 ml/min; Magnesium 2.1 mg/dl (1.7-2.4); Phosphorus 2.7 mg/dl (2.5-4.9)
[2024-08-04 07:18] LABS: BUN Creatinine Ratio 35.5 (10-20); Calcium 8.5 mg/dl (8.6-10.3); Creatinine Clr Calc Pharmacy 83.1 ml/min; Magnesium 2.2 mg/dl (1.7-2.4); Phosphorus 2.8 mg/dl (2.5-4.9); Potassium 4.1 mmol/L (3.5-5.1)
[2024-08-04 07:38] VITALS: RESP 17
[2024-08-04 09:38] LABS: Hematocrit (blood only) 30.6 % (42.0-52.0); Hemoglobin 10.4 g/dl (14.0-18.0); Mean Corpuscular Hemoglobin 34.1 pg (25.0-34.0); Mean Corpuscular Volume 100.3 fL (80.0-100.0); Mean Platelet Volume 11.8 fL (9.4-12.4); Platelet Count 168 K/uL (130-400); RDW Standard Deviation 58.4 fL (36.4-46.3); Red Blood Count 3.05 M/uL (4.70-6.10); White Blood Count 9.94 K/ul (4.8-10.8)
--- NOTE | 2024-08-04 10:58 | Discharge Summary ---
Date of Service August 04, 2024 Admission HPI Per Admitting Provider Patient is 79-year-old male with PMH HTN, persistent atrial fibrillation anticoagulated on Eliquis, paroxysmal SVT, DM II, chronic anemia, rheumatoid arthritis, leg wounds presented to ER with c/o LE edema and discomfort. Patient reports progressive BLE edema over past couple months with left leg worse than right leg edema. States bilateral leg pain and legs "feel like clubs" and having difficulty walking because of that. States legs are painful. Has been using oxycodone as needed with limited relief. States had fall three days ago and skin tears to arms and following with wound clinic. Has been following with wound clinic previously for traumatic LE wounds also. Noticed past two day increased LLE edema with bruising to left salgado. States stubbed left foot and has bruising to left toes and foot. Denies toe or foot pain just pain from knees down. Reports exertional SOB that has been progressive over past couple of months. Denies SOB at rest. Denies CP. States intermittent sensation heart is skipping a beat which he describes as chronic issue and not occurring more often and denies tachycardia sensation, dizziness, lightheadedness, or syncope. Per chart review was seen at wound clinic today and referred to ER secondary to LLE edema. Per chart review 07/30/2024 seen at [facility] ER and had left tibia/fibula x-ray that did not show any acute fracture. Chronic decreased urinary stream and dribbling but denies dysuria or hematuria. Denies fever/chills, diaphoresis, N/V/D/C, HERNANDEZ, dizziness, syncope, vision changes, neck pain, CP, orthopnea, cough, sore throat, rhinorrhea, abdominal pain, rashes. Admission Exam Per Admitting Provider General: no acute distress, WDWN elderly male Head: normocephalic, atraumatic Eyes: conjunctiva non-injected, anicteric ENT: normal inspection external ears, nose, mucous membranes moist Neck: supple, trachea midline Lungs: clear, no respiratory distress, diminished bases, no rales, rhonchi or wheezing noted CV: irregularly irregular, rate 96 Abd: normal BS, soft, non-tender Ext: LLE: +Edema knee to foot, +ecchymosis and fluctuance to anterior/medial salgado with tenderness to palpation with surrounding erythema and warmth, lower leg with dressing in place. RLE: +[address] to skin tear left upper extremity, dressing in place to skin tear of right upper extremity (today by wound clinic) Neuro: A&O x 3, no focal deficits noted, normal affect Skin: warm, dry Principal Diagnosis Acute on chronic heart failure with preserved ejection fraction Left leg hematoma Fall Cellulitis Diabetes mellitus Discharge Exam Constitutional + well hydrated; no acute distress Eyes PERRL, conjunctivae normal, anicteric sclerae ENMT external ear and nose normal, oropharynx normal Respiratory normal respiratory effort, lungs clear to auscultation Cardiovascular Rate/Rhythm: + irregularly irregular Gastrointestinal (Abdomen) normal bowel sounds, soft, nontender, no hepatosplenomegaly Musculoskeletal Bilateral pitting pedal edema improved Left leg: wound on anterior salgado. Hematoma on medial aspect of leg. Erythema/tenderness Neurologic PERRL, EOMI, accommodation nl, no face palsy, no dysarthria Psychiatric A+Ox3, euthymic affect Discharge Data Allergies Allergy/AdvReac Type Severity Reaction Status Date / Time No Known Allergies Allergy Verified 07/31/24 08:33 Consultations 07/31/24 12:32 ED Decision to Admit Stat 07/31/24 13:59 Consult Orthopedic Surgery Routine 08/01/24 11:49 Consult Cardiology Routine Ordered Studies 07/31/24 10:21 US venous doppler LE LT Stat Hospital Course (1) Traumatic hematoma of left lower leg: (2) Cellulitis of left leg: (3) Recurrent falls: 79-year-old male with PMH HTN, persistent atrial fibrillation anticoagulated on Eliquis, paroxysmal SVT, DM II, chronic anemia, rheumatoid arthritis, leg wounds presented to ER with c/o LE edema and discomfort with left leg edema worse and past 2 days tender and ecchymotic area to LLE. History fall 3 days prior to presentation 07/30/2024 left tibia/fibula x-ray that did not show any acute fracture. Venous doppler without acute DVT Pain is better controlled Mild hematoma/ecchymoses on medial left leg Ortho evaluated inpatient. PT/OT evaluated and Acute Rehab recommended but patient vehemently declined rehab Patient was treated with IV ceftriaxone inpatient, changed to keflex on discharge to complete treatment He states he follows with wound clinic and will need to continue wound clinic follow up (4) Acute on chronic heart failure with preserved ejection fraction (HFpEF): BNP:212 CXR: possible small pleural effusion. No overt pulmonary congestion noted Low sodium diet TTE 07/31/24: mild conc LVH, EF 65-70%, Mod dil LA, mild to mod MR Cardiology evaluated inpatient Was treated with IV lasix 40mg to BID now changed to increased po lasix 60mg daily Continue home spironolactone (5) Atrial fibrillation: History persistent A-Fib Paroxysmal SVT Continue metoprolol succinate and eliquis (6) Diabetes mellitus, type II: A1c: 7.5 on 03/26/24 Not on medication A1c is 8.5 on 08/01/24 Provided Diabetes education. Discharged on Metformin ER 500mg daily I called in prescription for glucometer, strip and lancet to his pharmacy PCP to follow up I also called son and updated him (7) COPD (chronic obstructive pulmonary disease): No signs acute exacerbation Continue home inhalers (8) HLD (hyperlipidemia): Continue rosuvastatin (9) Rheumatoid arthritis: On Chronic prednisone Continue prednisone (10) Chronic anemia: History B12 deficiency Hb.4 today (baseline 11-12) Continue B12 supplement (11) BPH (benign prostatic hyperplasia): Continue finasteride Total Time Total Time Spent Total Time Spent (In Minutes): 45 Total Time Includes: Examination of the Patient, Discharge Planning, Medication Reconciliation and Other Discharge Plan Discharge Items Patient Disposition: Home - Home Health Services Reason For Visit: LE EDEMA Discharge Diagnosis: Acute on chronic heart failure with preserved ejection fraction Left leg hematoma Fall Cellulitis Diabetes mellitus Activity: Resume your previous activity Non-emergency contact: Primary Care Provider Call non-emergency contact if: you have any medication questions and your symptoms worsen Follow-up/Referrals: Pura Banerjee CRNP [Outside Practitioners] - 08/08/24 2:20 pm (Date & Time 08/08/2024 2:20 PM Provider Doug Wharton MD Department Family Practice [facility] ) Harjit Bunch NP-C [Primary Care Provider] - Diet: Carb Consistent or DM2 and Heart Healthy Addtl Attending Provider Instructions: Mr Peña You were hospitalized and managed for the above listed diagnoses You are being discharged home. Your lasix was increased to 60mg daily. You are being started on metformin ER 500mg once a day for Diabetes mellitus as we discussed. You are being discharged on 2 more days of antibiotic to complete treatment. Please ensure follow up with your Primary Doctor and Cardiology. It was a pleasure taking care of you Pending Studies at Discharge: No Stand-Alone Forms: My [facility], Smoking Cessation Medications and DC Order Prescriptions: New cephalexin 500 mg tablet 500 mg PO Q6H 2 Days Qty: 8 0RF metformin 500 mg tablet extended release 24 hr 500 mg PO DAILY Qty: 30 0RF Continued prednisone 5 mg Tablet 5 mg PO BID spironolactone 25 mg Tablet 25 mg PO QAM gabapentin 300 mg Capsule 300 mg PO BID finasteride 5 mg Tablet 5 mg PO DAILY cholecalciferol (vitamin D3) [Vitamin D3] 25 mcg (1,000 unit) Tablet 50 mcg PO DAILY apixaban 5 mg Tablet 5 mg PO BID pantoprazole 40 mg Tablet,Delayed Release (Dr/Ec) 40 mg PO QAM cyanocobalamin (vitamin B-12) [Vitamin B-12] 1,000 mcg Tablet 1,000 mcg PO DAILY fluticasone propion-salmeterol [Wixela Inhub] 500-50 mcg/dose Blister With Device 1 inh INHALATION BID metoprolol succinate 50 mg Tablet Extended Release 24 Hr 50 mg PO BID Qty: 60 1RF rosuvastatin 20 mg Tablet 20 mg PO QAM oxycodone 5 mg Tablet 5 mg PO Q4H PRN (Reason: pain) Qty: 30 0RF Rx Instructions: filled 07/20 7 day supply Changed furosemide 40 mg Tablet 60 mg PO QAM Qty: 45 0RF Discharge Orders: Discharge Order (Routine); Ordered 08/04/24 Ordered By: Opal Morales Admission Data Admit Date/Time: 07/31/24 13:00 Attending Provider: Opal Morales I. Admit Provider: Danette Casarez Primary Care Provider: Harjit Bunch Other Providers: Orlando Cherry; Danette Casarez; [facility]; Ian Denny Other Interventions: Discharge Summary Assessment (RN) Last Done: 08/04/24 11:53
[2024-08-04 11:32] VITALS: BP 125/89; PULSE 110; TEMP 97.2; O2SAT 97
[2024-08-04] MEDS: traMADol HCL 50 MG TABLET PO PRN (12:14)
== END 2024-08-04 16:18 | disposition home health service (06) | DRG 604 ==
LOC: ED 09:46 → EDINP 13:00 → SUATTDRO 13:00 → 2N 15:37

== ENCOUNTER 2025-01-17 11:09 | Inpatient (IN) ==
[2025-01-17 12:32] LABS: Basophils # (auto) 0.05 K/uL (0.00-0.20); Basophils % (auto) 0.4 %; Eosinophils # (auto) 0.05 K/uL (0.00-0.50); Eosinophils % (auto) 0.4 %; Hematocrit (blood only) 33.3 % (42.0-52.0); Immature Granulocytes # (auto) 0.12 K/uL (0.01-0.20); Lymphocytes # (auto) 1.58 K/uL (1.20-3.40); Lymphocytes % (auto) 12.7 %; Mean Corpuscular Hemoglobin 33.5 pg (25.0-34.0); Mean Corpuscular Volume 101.5 fL (80.0-100.0); Mean Platelet Volume 11.6 fL (9.4-12.4); Monocytes % (auto) 13.7 %; Neutrophils # (auto) 8.91 K/uL (1.40-6.50); Neutrophils % (auto) 71.8 %; Platelet Count 177 K/uL (130-400); RDW Coefficient of Variation 16.3 % (11.5-14.5); RDW Standard Deviation 60.6 fL (36.4-46.3); Red Blood Count 3.28 M/uL (4.70-6.10); White Blood Count 12.41 K/ul (4.8-10.8)
[2025-01-17 12:50] LABS: Anion Gap 7 (3-11); Blood Urea Nitrogen 22 mg/dl (6-23); Calcium 9.4 mg/dl (8.6-10.3); Carbon Dioxide 30 mmol/L (21-32); Chloride 97 mmol/L (98-107); Glucose 127 mg/dl (70-99(Fasting)); Potassium 3.7 mmol/L (3.5-5.1); Sodium 134 mmol/L (136-145)
--- NOTE | 2025-01-17 12:59 | XRay Report ---
XR tibia fibula LT 2V CLINICAL HISTORY: lle pain COMPARISON: 07/30/2024 FINDINGS: No fracture or dislocation. No evidence of osteomyelitis. IMPRESSION: No acute osseous finding seen. ACT 112: Negative or not required by law. Electronically signed by: Joshua Valdes M.D. 01/17/2025 12:58 PM
[2025-01-17] MEDS ORDERED: VANCOMYCIN CONSULT ACTIVE PRN ×2 (13:15→17:06)
--- NOTE | 2025-01-17 13:35 | History & Physical Report ---
Date of Service January 17, 2025 Assessment & Plan (1) Cellulitis of left leg: Plan: Patient is 79-year-old male with PMH HTN, persistent atrial fibrillation anticoagulated on Eliquis, paroxysmal SVT, DM II, chronic anemia, rheumatoid arthritis, leg wounds presented to ER with c/o left leg redness and increased pain x 2 days. On 01/15/25 had presented to wound clinic with new hematoma to left leg and had area I&D. 01/15/25 Wound culture was without growth. In ER afebrile, P: 103, R: 20, BP 105/57, 97% on room air WBC: 12.4, lactate: 2.3, Procalcitonin: 0.1 Tib-fib x-ray: No fracture or osteomyelitis noted Blood cultures pending In ER given Rocephin, vancomycin, gentle IVF ordered Give bolus IVF Zosyn, vancomycin Per chart review pt with history pseudomonas on prior wound cultures Trend lactate Tylenol, oxycodone prn pain. Has buprenorphine patch prescribed but hasn't started using it yet. CT tib/fib pending to assess for underlying abscess Wound nurse consult while inpatient Fall precautions CBC, BMP in am #Chronic heart failure with preserved ejection fraction (HFpEF): CXR: Stable moderate cardiomegaly with mild pulmonary vascular congestion Will hold home oral lasix, spironolactone and reassess volume status tomorrow 02/02/2024 echo: EF: 55-60%, mild concentric LVH, moderate aortic valve sclerosis without significant stenosis, mild mitral regurgitation #Atrial fibrillation: History persistent A-Fib Paroxysmal SVT Borderline tachybrady syndrome In ER HR low 100's. Denies CP, SOB, palpitations Monitor on telemetry Continue metoprolol succinate, Eliquis #Diabetes mellitus, type II: A1c: 8.5 on 08/01/24 Hold home metformin Novolog sliding scale per protocol Diabetic diet A1c in AM #COPD (chronic obstructive pulmonary disease): No signs acute exacerbation Continue home inhalers #HLD (hyperlipidemia): Continue rosuvastatin #Rheumatoid arthritis: On Chronic prednisone 5mg daily Continue prednisone Chronic anemia: History B12 deficiency Hb. (baseline appears in 11's) Continue B12 supplement #BPH (benign prostatic hyperplasia): Continue finasteride, tamsulosin DVT Prophylaxis Eliquis Admit telemetry Full Code as per discussion with pt Pt was seen and care coordinated with Dr Maloney. See addendum I spent a total of 70 minutes reviewing notes, outpatient records, labs, medication, coordinating, documenting and providing care for this patient excluding time spent in the performance of separately billed services and excluding time spent by another provider/QHP. History of Present Illness Chief Complaint: Leg redness Primary Care Provider: TEZ LongoC Patient is 79-year-old male with PMH HTN, persistent atrial fibrillation anticoagulated on Eliquis, paroxysmal SVT, DM II, chronic anemia, rheumatoid arthritis, leg wounds presented to ER with c/o left leg redness and pain. Per outpatient chart review patient is following with wound clinic for chronic leg wounds. On 01/15/25 had presented to wound clinic with new hematoma to left leg and had area I&D. 01/15/25 Wound culture was without growth. Presented today to wound clinic and found to have concerns of cellulitis to LLE and referred to ER for further evaluation. Patient reports that yesterday he started getting increased pain to left leg and noticed some redness. He thinks having some drainage from area. Per chart review patient with history wound pseudomonas in past. Denies fever/chills, diaphoresis, N/V/D/C, HERNANDEZ, dizziness, syncope, vision changes, neck pain, CP, SOB, orthopnea, palpitations, cough, sore throat, rhinorrhea, abdominal pain, extremity edema, rashes, urinary symptoms. Allergies Allergy/AdvReac Type Severity Reaction Status Date / Time No Known Allergies Allergy Verified 01/17/25 10:19 Home Medications Medication Instructions Recorded Confirmed Type finasteride 5 mg tablet 5 mg PO DAILY 04/25/20 01/17/25 History gabapentin 300 mg capsule 300 mg PO BID 04/25/20 01/17/25 History prednisone 5 mg tablet 5 mg PO DAILY 04/25/20 01/17/25 History spironolactone 25 mg tablet 25 mg PO QAM 04/25/20 01/17/25 History cholecalciferol (vitamin D3) 25 50 mcg PO DAILY 07/30/20 01/17/25 History mcg (1,000 unit) tablet (Vitamin D3) apixaban 5 mg tablet 5 mg PO BID 12/31/22 01/17/25 History pantoprazole 40 mg tablet,delayed 40 mg PO QAM 12/31/22 01/17/25 History release cyanocobalamin (vitamin B-12) 1,000 mcg PO DAILY 01/31/24 01/17/25 History 1,000 mcg tablet (Vitamin B-12) fluticasone 500 mcg-salmeterol 50 1 inh inhalation BID 01/31/24 01/17/25 History mcg/dose blistr powdr for inhalation (Wixela Inhub) metoprolol succinate 50 mg 50 mg PO BID #60 tabs 02/08/24 01/17/25 Rx tablet,extended release 24 hr rosuvastatin 20 mg tablet 20 mg PO QAM 03/25/24 01/17/25 History furosemide 40 mg tablet 60 mg (1.5 x 40 mg) PO QAM #45 tabs 08/04/24 01/17/25 Rx metformin 500 mg tablet,extended 500 mg PO DAILY #30 tabs 08/04/24 01/17/25 Rx release 24 hr tamsulosin 0.4 mg capsule (Flomax) 0.4 mg PO DAILY 10/23/24 01/17/25 History acetaminophen 500 mg tablet 500 mg PO TID PRN Pain 01/17/25 01/17/25 History buprenorphine 5 mcg/hour weekly 1 patch transdermal Q7D 01/17/25 01/17/25 History transdermal patch food supplemt, lactose-reduced 1 ea PO BID 01/17/25 01/17/25 History (Ensure oral liquid) oxycodone 5 mg tablet 5 mg PO DAILY PRN pain 01/17/25 01/17/25 History skin cleanser comb no.31 1 spray topical DAILY 01/17/25 01/17/25 History (Skintegrity Wound Cleanser topical spray) Past Med/Surg History Problem List Open wound Hematoma of right lower leg (Acute) Wound infection PSVT (paroxysmal supraventricular tachycardia) HTN (hypertension) Atrial fibrillation with rapid ventricular response Heart failure, diastolic, with acute decompensation BPH (benign prostatic hyperplasia) Chronic anemia Rheumatoid arthritis HLD (hyperlipidemia) Diabetes mellitus, type II Atrial fibrillation no pacer > med controlled Cellulitis of left leg Weakness (Acute) Skin tear of right upper extremity (Acute) Skin tear of left upper extremity (Acute) Traumatic hematoma of left lower leg (Acute) Wound dehiscence Pneumonitis Severe sepsis Rhinovirus infection (Acute) Acute exacerbation of CHF (congestive heart failure) (Acute) Pulmonary edema (Acute) Elevated lactic acid level (Acute) Leukocytosis (Acute) Hemoptysis (Acute) Shortness of breath (Acute) Traumatic open wound of left lower leg with delayed healing (Acute) Avulsion of skin of left lower leg Thrombocytopenia (Acute) Multiple skin tears (Acute) History of CHF (congestive heart failure) (Acute) History of COPD (Acute) Bilateral edema of lower extremity (Acute) Bilateral cellulitis of lower leg (Acute) Acute on chronic heart failure with preserved ejection fraction (HFpEF) Bilateral cellulitis of lower leg Sepsis Vomiting (Acute) Pneumonia (Acute) Shortness of breath (Acute) Aspiration into airway (Acute) COPD exacerbation Tachycardia-bradycardia syndrome Sinus pause PAC (premature atrial contraction) (Acute) Chest pain (Acute) Hx of supraventricular tachycardia COPD (chronic obstructive pulmonary disease) SOB (shortness of breath) (Acute) Rheumatoid arthritis (Acute) Medical History Hx of sepsis treated at [facility] 05/2024 > resolved per pt History of COVID-19 2019 History of COPD no res inh, controlled with routine inh per pt History of pneumonia treated at [facility] 05/13/24 was overnight obs per pt, no further issues, breathing is better per pt CHF (congestive heart failure) controlled at present per pt, follows with Dr. Denny Cellulitis present to left lower leg > sees wound clinic weekly Hx of peripheral neuropathy Ascending aorta enlargement follows with Dr. Denny, pt unaware of details Surgical History Hx of cataract extraction right History of tooth extraction History of colonoscopy History of thoracotomy remote hx H/O inguinal hernia repair Family History Father Heart disease Social History Smoking Status: Former smoker Tobacco Type: Smokeless Tobacco (Dip or Chew) Cigarettes Per Day: 1 PPD; Second Hand Exposure: No; Do You Dip or Chew Tobacco: Yes; Hx Alcohol Use: No Hx Substance Use: No Preferred Language: Venezuelan Communication Ability: Effective Visual Impairment: Limited Hearing Ability: Hard of Hearing Treasury Consultant Required: No Beliefs That Will Affect Care: None marital status: / Current Living Situation: Alone Current Living Situation Comment: Lives alone, son lives in close proximity current occupational status: retired How many Children do You have: 3 How many Children do You have Comment: All children live close and one son that lives closest is able to assist Feels Safe at Home: Yes Diet: regular during the past year weight has: remained stable Assistive Devices: Cane and Walker Review of Systems Review of Systems: All systems reviewed & are unremarkable except as noted in HPI & below Physical Exam Physical Exam: General: no acute distress, WDWN elderly male Head: normocephalic, atraumatic Eyes: conjunctiva non-injected, anicteric ENT: normal inspection external ears, nose, mucous membranes moist Neck: supple, trachea midline Lungs: no respiratory distress, R: 18, 97% on RA, +slight rales at bases bilaterally, no wheezing/rhonchi CV: irregularly irregular, rate 106, no pretibial edema Abd: normal BS, soft, non-tender Ext: no cyanosis. RLE: scars noted. +diffuse tender to palpation (pt reports chronic). LLE: +multiple scars. distal leg wound and foot wound appears to be healing well without surrounding erythema and no noted discharge. Left lateral leg wound with skin tear and noted incision site with surrounding erythema of entire lower leg extending to knee and just proximal to medial aspect of knee and lower femur region. Area very tender to palpation and is warm Neuro: A&O x 3, no focal deficits noted, normal affect Skin: as above in extremities. +scattered ecchymosis to extremities. warm, dry Results & Data Results & Data Vital Signs (Past 12 Hours) Vital Signs Temp Pulse Resp BP Pulse Ox O2 Del Method 01/17/25 11:29 37.3 C 103 H 20 105/57 L 97 Room Air Laboratory Results Short CBC 01/17/25 Range/Units 12:16 WBC 12.41 H (4.8-10.8) K/ul Hgb 11.0 L (14.0-18.0) g/dl Hct 33.3 L (42.0-52.0) % Plt Count 177 (130-400) K/uL BMP 01/17/25 12:16 Sodium 134 L Potassium 3.7 Chloride 97 L Carbon Dioxide 30 BUN 22 Creatinine 1.10 Glucose 127 H Calcium 9.4 Diagnostic Findings Tibia/Fibula X-Ray 01/17/25 11:58 XR tibia fibula LT 2V CLINICAL HISTORY: lle pain COMPARISON: 07/30/2024 FINDINGS: No fracture or dislocation. No evidence of osteomyelitis. IMPRESSION: No acute osseous finding seen. ACT 112: Negative or not required by law. Electronically signed by: Joshua Valdes M.D. 01/17/2025 12:58 PM Chest X-Ray 01/17/25 14:07 XR chest 1V portable CLINICAL HISTORY: r/o chf COMPARISON STUDY: 07/31/2024 FINDINGS: Stable moderate cardiomegaly with mild pulmonary vascular congestion. Stable mild reticular opacities in the lung bases and stable mild blunting of the costophrenic angles. No pneumothorax. IMPRESSION: Stable exam. ACT 112: Negative or not required by law. Electronically signed by: Joshua Valdes M.D. 01/17/2025 2:[address] 01/17/25 14:10 CT tib/fib LT w con CLINICAL HISTORY: Evaluate for abscess. Wound. Lower extremity edema. COMPARISON STUDY: Left lower extremity venous Doppler ultrasound July 31, 2024. Left tibia and fibular radiographs performed earlier today. MRI of the left lower leg January 01, 2023. TECHNIQUE: Axial images of the left tibia and fibula/lower leg were obtained following intravenous injection of 92 cc of Optiray 320 IV. Sagittal and coronal reformats were viewed. A dose lowering technique was utilized adhering to the principles of ALARA. FINDINGS: A wound of the proximal lateral left lower leg with overlying bandage is noted. Skin thickening and subcutaneous edema suggests cellulitis. There is no rim-enhancing fluid collection to suggest abscess. There is extensive edema within the remainder of the left lower leg. No fluid collections are present. There is no soft tissue gas. No bony erosion of the left tibia or fibula is present. No osseous lesions are noted. There are no fractures within the left tibia or fibula. IMPRESSION: 1. Left lower leg wound with cellulitis. No fluid collection to suggest abscess. 2. No evidence for osteomyelitis within the left tibia or fibula. ACT 112: Negative or not required by law. Electronically signed by: Yong Jensen M.D. 01/17/2025 4:01 PM Supervising Physician Co-Signing Physician Notes Patient seen and examined independently. Discussed with the above provider. Patient is sent from the wound care clinic due to increasing erythema, warmth as well as pain in lower extremity. Patient has been following with wound care clinic after he was found to have hematoma of left lower extremity back in July 2024. Plan to obtain CT of the leg to rule out underlying abscess. Plan to start antibiotic with Vanco and Zosyn. I have reviewed the advanced practitioner's documentation, and I agree with, and take responsibility for the plan of care I spent a total of 24 minutes coordinating, documenting, and providing care for this patient excluding time spent in the performance of separately billed services. All of the aforementioned completed while collaborating with the assigned advanced practitioner for a full treatment plan
--- NOTE | 2025-01-17 14:47 | XRay Report ---
XR chest 1V portable CLINICAL HISTORY: r/o chf COMPARISON STUDY: 07/31/2024 FINDINGS: Stable moderate cardiomegaly with mild pulmonary vascular congestion. Stable mild reticular opacities in the lung bases and stable mild blunting of the costophrenic angles. No pneumothorax. IMPRESSION: Stable exam. ACT 112: Negative or not required by law. Electronically signed by: Joshua Valdes M.D. 01/17/2025 2:46 PM
[2025-01-17] MEDS: VANCOMYCIN HCL 1,750 MG in SODIUM CHLORIDE 0.9% 500 ML IV ONE (15:17)
[2025-01-17] MEDS: cefTRIAXone SODIUM 2,000 MG/50 ML BAG IV STA (15:18)
[2025-01-17] MEDS: OPTIRAY 320 100ml IV ONE (15:38)
--- NOTE | 2025-01-17 16:02 | CT Scan Report ---
CT tib/fib LT w con CLINICAL HISTORY: Evaluate for abscess. Wound. Lower extremity edema. COMPARISON STUDY: Left lower extremity venous Doppler ultrasound July 31, 2024. Left tibia and fi bular radiographs performed earlier today. MRI of the left lower leg January 01, 2023. TECHNIQUE: Axial images of the left tibia and fibula/lower leg were obtained following intravenous in jection of 92 cc of Optiray 320 IV. Sagittal and coronal reformats were viewed. A dose lowering techn ique was utilized adhering to the principles of ALARA. FINDINGS: A wound of the proximal lateral left lower leg with overlying bandage is noted. Skin thicke darrius and subcutaneous edema suggests cellulitis. There is no rim-enhancing fluid collection to sugges t abscess. There is extensive edema within the remainder of the left lower leg. No fluid collections are present. There is no soft tissue gas. No bony erosion of the left tibia or fibula is present. No osseous lesions are noted. There are no fractures within the left tibia or fibula. IMPRESSION: 1. Left lower leg wound with cellulitis. No fluid collection to suggest abscess. 2. No evidence for osteomyelitis within the left tibia or fibula. ACT 112: Negative or not required by law. Electronically signed by: Yong Jensen M.D. 01/17/2025 4:01 PM
[2025-01-17] MEDS: SODIUM CHLORIDE 0.9% 500 ML IV ONE ×2 (16:07→21:57)
[2025-01-17] MEDS ORDERED: DEXTROSE 50% 50 ML SYRINGE IV PRN (17:06)
[2025-01-17] MEDS ORDERED: CARBOHYDRATES FOR HYPOGLYCEMIA PO PRN (17:06)
[2025-01-17] MEDS ORDERED: GLUCOSE 40% GEL 15 GM TUBE PO PRN (17:06)
[2025-01-17] MEDS ORDERED: GLUCOSE 10 TAB/TUBE PO PRN (17:06)
[2025-01-17] MEDS ORDERED: ONDANSETRON INJ 2 MG/ML 2 ML VIAL IV PRN (17:06)
[2025-01-17] MEDS ORDERED: POLYETHYLENE (MIRALAX) 17 GM PACK PO PRN (17:06)
[2025-01-17] MEDS ORDERED: GLUCAGON FOR INJ 1 MG VIAL SQ PRN (17:06)
[2025-01-17] MEDS: SODIUM CHLORIDE 0.9% 500 ML IV SCH (18:35)
[2025-01-17] MEDS: PIPERACILLIN/TAZOBACTAM 4.5 GM/100 ML BAG IV ONE (18:36)
[2025-01-17] MEDS: INSULIN ASPART PER UNIT CHARGE SC SCH (18:37)
[2025-01-17] MEDS: METOPROLOL SUCC 25MG EXT REL TAB PO ONE (18:39)
[2025-01-17] MEDS: CHECK BUPRENORPHINE PATCH SCH (18:40)
--- NOTE | 2025-01-17 19:45 | Emergency Department Note ---
History of Present Illness General Chief complaint: Infection, Wound Stated complaint: INFECTED WOUND, EDEMA IN LEGS Time Seen by Provider: 01/17/25 11:41 History of Present Illness Provider complaint: Wound infection 79-year-old male on Eliquis presents emergency department for wound infection. Family reports that the patient has been having increasing swelling and redness in his left lower extremity. They report no fevers. They report they went to wound care today and referred here for intravenous antibiotics. No falls or traumas. Patient is compliant with Eliquis. No chest pain or difficulty breathing. Home Medications Medication Instructions Recorded Confirmed Type finasteride 5 mg tablet 5 mg PO DAILY 04/25/20 01/17/25 History gabapentin 300 mg capsule 300 mg PO BID 04/25/20 01/17/25 History prednisone 5 mg tablet 5 mg PO DAILY 04/25/20 01/17/25 History spironolactone 25 mg tablet 25 mg PO QAM 04/25/20 01/17/25 History cholecalciferol (vitamin D3) 25 50 mcg PO DAILY 07/30/20 01/17/25 History mcg (1,000 unit) tablet (Vitamin D3) apixaban 5 mg tablet 5 mg PO BID 12/31/22 01/17/25 History pantoprazole 40 mg tablet,delayed 40 mg PO QAM 12/31/22 01/17/25 History release cyanocobalamin (vitamin B-12) 1,000 mcg PO DAILY 01/31/24 01/17/25 History 1,000 mcg tablet (Vitamin B-12) fluticasone 500 mcg-salmeterol 50 1 inh inhalation BID 01/31/24 01/17/25 History mcg/dose blistr powdr for inhalation (Wixela Inhub) metoprolol succinate 50 mg 50 mg PO BID #60 tabs 02/08/24 01/17/25 Rx tablet,extended release 24 hr rosuvastatin 20 mg tablet 20 mg PO QAM 03/25/24 01/17/25 History furosemide 40 mg tablet 60 mg (1.5 x 40 mg) PO QAM #45 tabs 08/04/24 01/17/25 Rx metformin 500 mg tablet,extended 500 mg PO DAILY #30 tabs 08/04/24 01/17/25 Rx release 24 hr tamsulosin 0.4 mg capsule (Flomax) 0.4 mg PO DAILY 10/23/24 01/17/25 History acetaminophen 500 mg tablet 500 mg PO TID PRN Pain 01/17/25 01/17/25 History buprenorphine 5 mcg/hour weekly 1 patch transdermal Q7D 01/17/25 01/17/25 History transdermal patch food supplemt, lactose-reduced 1 ea PO BID 01/17/25 01/17/25 History (Ensure oral liquid) oxycodone 5 mg tablet 5 mg PO DAILY PRN pain 01/17/25 01/17/25 History skin cleanser comb no.31 1 spray topical DAILY 01/17/25 01/17/25 History (Skintegrity Wound Cleanser topical spray) Allergies Allergy/AdvReac Type Severity Reaction Status Date / Time No Known Allergies Allergy Verified 01/17/25 10:19 Past Med/Surg History Problem List (Updated 01/17/25 @ 19:45 by Rickie Pelayo MD) Open wound Hematoma of right lower leg (Acute) Wound infection PSVT (paroxysmal supraventricular tachycardia) HTN (hypertension) Atrial fibrillation with rapid ventricular response Heart failure, diastolic, with acute decompensation BPH (benign prostatic hyperplasia) Chronic anemia Rheumatoid arthritis HLD (hyperlipidemia) Diabetes mellitus, type II Atrial fibrillation no pacer > med controlled Cellulitis of left leg Weakness (Acute) Skin tear of right upper extremity (Acute) Skin tear of left upper extremity (Acute) Traumatic hematoma of left lower leg (Acute) Wound dehiscence Pneumonitis Severe sepsis Rhinovirus infection (Acute) Acute exacerbation of CHF (congestive heart failure) (Acute) Pulmonary edema (Acute) Elevated lactic acid level (Acute) Leukocytosis (Acute) Hemoptysis (Acute) Shortness of breath (Acute) Traumatic open wound of left lower leg with delayed healing (Acute) Avulsion of skin of left lower leg Thrombocytopenia (Acute) Multiple skin tears (Acute) History of CHF (congestive heart failure) (Acute) History of COPD (Acute) Bilateral edema of lower extremity (Acute) Bilateral cellulitis of lower leg (Acute) Acute on chronic heart failure with preserved ejection fraction (HFpEF) Bilateral cellulitis of lower leg Sepsis Vomiting (Acute) Pneumonia (Acute) Shortness of breath (Acute) Aspiration into airway (Acute) COPD exacerbation Tachycardia-bradycardia syndrome Sinus pause PAC (premature atrial contraction) (Acute) Chest pain (Acute) Hx of supraventricular tachycardia COPD (chronic obstructive pulmonary disease) SOB (shortness of breath) (Acute) Rheumatoid arthritis (Acute) Medical History Hx of sepsis treated at [facility] 05/2024 > resolved per pt History of COVID-2019 History of COPD no res inh, controlled with routine inh per pt History of pneumonia treated at [facility] 05/13/24 was overnight obs per pt, no further issues, breathing is better per pt CHF (congestive heart failure) controlled at present per pt, follows with Dr. Denny Cellulitis present to left lower leg > sees wound clinic weekly Hx of peripheral neuropathy Ascending aorta enlargement follows with Dr. Denyn, pt unaware of details Surgical History Hx of cataract extraction right History of tooth extraction History of colonoscopy History of thoracotomy remote hx H/O inguinal hernia repair Family History Father Heart disease Social History Smoking Status: Former smoker Tobacco Type: Smokeless Tobacco (Dip or Chew) Cigarettes Per Day: 1 PPD; Second Hand Exposure: No; Do You Dip or Chew Tobacco: Yes (1 can per week); Hx Alcohol Use: No Hx Substance Use: No Preferred Language: Kittitian Communication Ability: Effective Communication Ability Comment: LOWER [place] Visual Impairment: Limited Hearing Ability: Hard of Hearing 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 Beliefs That Will Affect Care: None marital status: / Current Living Situation: Alone Current Living Situation Comment: lives next door to son current occupational status: retired How many Children do You have: 3 How many Children do You have Comment: All children live close and one son that lives closest is able to assist Feels Safe at Home: Yes Diet: regular during the past year weight has: remained stable Assistive Devices: Denture - Upper, Denture - Lower, Glasses, Raised Toilet Seat, Walker and Wheelchair Physical Exam Vital Signs Vital Signs - 24 hr 01/17/25 11:29 Temperature 37.3 C Temperature Source Temporal Artery Scan Pulse Rate 103 H Respiratory Rate 20 Blood Pressure 105/57 L Blood Pressure Mean 73 Pulse Oximetry 97 Oxygen Delivery Method Room Air Sepsis Recent Fever Within 48 Hours No Sepsis New/Unexplained Change in Mental Status N/A Sepsis Action Taken by Nursing No Action Required Physical Exam NECK: Normal range of motion. Neck supple. No JVD present. CV: Normal rate, regular rhythm, normal heart sounds and intact distal pulses. Palpable radial pulses bue. PULM/CHEST: Effort normal and breath sounds normal. No respiratory distress. No stridor. no wheezes. no rales. MUSC: 2+ pitting edema of the bilateral lower extremities. Wound over the patient's left lower extremity with surrounding erythema and warmth. Well- healing wounds over the right lower extremity. Course Course 1141: The patient was evaluated in room C3. A complete history and physical exam was performed 1320: Vital signs stable.Labs show white blood cell count of 12.41 hemoglobin of 11 lactic acid 2.6. Patient has history of CHF. Gentle hydration started and IV antibiotics ordered. Patient will be admitted to the hospitalist team. Administered Medications Insulin Aspart (Insulin Aspart Per Unit Charge) 0 units SC ACHS STEPHEN Stop: 02/16/25 17:05 Last Admin: 01/17/25 18:37 Dose: Not Given Documented By: LYNNETTE Discontinued Medications Vancomycin HCl 1,750 mg/ (Sodium Chloride) 535 mls @ 200 mls/hr IV NOW ONE Stop: 01/17/25 15:55 Last Admin: 01/17/25 15:17 Dose: 200 mls/hr Documented By: GABRIEL Ceftriaxone Sodium (Rocephin) 2,000 mg in 50 mls @ 100 mls/hr IV NOW STA Stop: 01/17/25 13:44 Last Infusion: 01/17/25 16:07 Dose: Infused Documented By: Admin: 01/17/25 15:18 Dose: 100 mls/hr Documented By: GABRIEL Sodium Chloride (Nss) 500 mls @ 80 mls/hr IV .Q6H15M STEPHEN Stop: 01/17/25 19:29 Last Admin: 01/17/25 18:35 Dose: 80 mls/hr Documented By: LYNNETTE Sodium Chloride (Nss) 500 mls @ 999 mls/hr IV .Q31M ONE Stop: 01/17/25 14:42 Last Infusion: 01/17/25 16:08 Dose: Infused Documented By: Admin: 01/17/25 16:07 Dose: 999 mls/hr Documented By: GABRIEL Piperacillin Sod/Tazobactam Sod (Zosyn) 4.5 gm in 100 mls @ 200 mls/hr IV NOW ONE; Protocol Stop: 01/17/25 16:28 Last Admin: 01/17/25 18:36 Dose: Not Given Documented By: [facility] Ioversol (Optiray 320 100ml) 92 ml IV ONCE ONE Stop: 01/17/25 15:38 Last Admin: 01/17/25 15:38 Dose: 92 ml Documented By: BEAU Metoprolol Succinate (Metoprolol Succ 25mg Ext Rel Tab) 25 mg PO NOW ONE Stop: 01/17/25 16:14 Last Admin: 01/17/25 18:39 Dose: Not Given Documented By: LYNNETTE Miscellaneous (Check Buprenorphine Patch) 1 each N/A QS STEPHEN Stop: 02/16/25 17:05 Last Admin: 01/17/25 18:40 Dose: 1 each Documented By: LYNNETTE Medical Decision Making Laboratory Data Attestation: I reviewed the patient's lab results. 01/17/25 12:16 01/17/25 12:16 Lab Results 01/17/25 Range/Units 12:16 WBC 12.41 H (4.8-10.8) K/ul RBC 3.28 L (4.70-6.10) M/uL Hgb 11.0 L (14.0-18.0) g/dl Hct 33.3 L (42.0-52.0) % MCV 101.5 H (80.0-100.0) fL MCH 33.5 (25.0-34.0) pg MCHC 33.0 (32.0-36.0) g/dL RDW Std Deviation 60.6 H (36.4-46.3) fL RDW Coeff of Roxanna 16.3 H (11.5-14.5) % Plt Count 177 (130-400) K/uL MPV 11.6 (9.4-12.4) fL Immature Gran % (Auto) 1.0 % Neut % (Auto) 71.8 % Lymph % (Auto) 12.7 % [place] % (Auto) 13.7 % Eos % (Auto) 0.4 % Baso % (Auto) 0.4 % Neut # (Auto) 8.91 H (1.40-6.50) K/uL Lymph # (Auto) 1.58 (1.20-3.40) K/uL [place] # (Auto) 1.70 H (0.11-0.59) K/uL Eos # (Auto) 0.05 (0.00-0.50) K/uL Baso # (Auto) 0.05 (0.00-0.20) K/uL Immature Gran # (Auto) 0.12 (0.01-0.20) K/uL Sodium 134 L (136-145) mmol/L Potassium 3.7 (3.5-5.1) mmol/L Chloride 97 L (98-107) mmol/L Carbon Dioxide 30 (21-32) mmol/L Anion Gap 7 (3-11) BUN 22 (6-23) mg/dl Creatinine 1.10 (0.6-1.4) mg/dl Est Cr Clr Drug Dosing Not Reportable eGFR 67.44 BUN/Creatinine Ratio 20.0 (10-20) Glucose 127 H (70-99(Fasting)) mg/dl Lactate 2.3 H* (0.4-2.0) mmol/L Calcium 9.4 (8.6-10.3) mg/dl Procalcitonin 0.11 (0-0.5) ng/ml Imaging Data Radiologist's Impression: Tibia/Fibula X-Ray 01/17/25 11:58 XR tibia fibula LT 2V CLINICAL HISTORY: lle pain COMPARISON: 07/30/2024 FINDINGS: No fracture or dislocation. No evidence of osteomyelitis. IMPRESSION: No acute osseous finding seen. ACT 112: Negative or not required by law. Electronically signed by: Joshua Valdes M.D. 01/17/2025 12:58 PM [facility] Narrative 1141: The patient was evaluated in room C3. A complete history and physical exam was performed 1320: Vital signs stable.Labs show white blood cell count of 12.41 hemoglobin of 11 lactic acid 2.6. Patient has history of CHF. Gentle hydration started and IV antibiotics ordered. Patient will be admitted to the hospitalist team. Impression & Plan Bilateral cellulitis of lower leg Discharge Plan Visit Data Chief Complaint: Infection, Wound Stated Complaint: INFECTED WOUND, EDEMA IN LEGS ED Provider: Rickie Pelayo Discharge Problem: Bilateral cellulitis of lower leg Patient Disposition: Admitted As Inpatient Discharge Instructions Interventions: ED Discharge Assessment Last Done: 01/17/25 16:27
[2025-01-17] MEDS: ACETAMINOPHEN 325 MG TAB PO PRN (20:03)
[2025-01-17] MEDS ORDERED: FLUTICASONE/SALMETEROL (ADVAIR) 500/50 INH 14 PUFF INH SCH (21:00)
[2025-01-17] MEDS ORDERED: NON-FORMULARY MEDICATION (Food Supplemt, Lactose-Reduced [Ensure] Liquid) PO SCH (21:00)
[2025-01-17] MEDS: SODIUM CHLORIDE 0.9% 1,000 ML IV SCH (21:40)
[2025-01-17] MEDS: GABAPENTIN 300 MG CAP PO SCH (21:58)
[2025-01-17] MEDS: APIXABAN 5 MG TABLET PO SCH (21:58)
[2025-01-17] MEDS: PIPERACILLIN/TAZOBACTAM 4.5 GM/100 ML BAG IV STA (21:59)
[2025-01-17] MEDS: METOPROLOL SUCC 50MG EXT REL TAB PO SCH (21:59)
--- OUTSIDE RECORDS SUMMARY | 2025-01-17 22:41 | External Medical Summary | Summary of Care ---
Author Name Unknown Organization [facility] Address [address] [facility] [place] [address] Phone [phone] Care Team Providers Care Resaw Operator Name Role Phone Pura Banerjee Rochelle CHAPMAN Primary Care Provider Encounter Details Date Type Department Care Team (Late st Contact Info) Description 10/28/2024 Population Health External Data Unspecified Department Allergies Active Allergy Reactions Criticality Noted Date Comments Other - Drugs Diarrhea,Nausea/vomiting 10/12/18 99 Dimox documented as of this encounter (statuses as of 10/28/2024) Medications finasteride (PROSCAR) 5 MG Tablet Take 1 Tab by mouth daily. 90 Tab 3 6 Active Vitamin D (Cholecalcifero l) 25 MCG (1000 UT) Oral Tablet Take by mouth. 1 tab twice daily Active Apixaban 5 MG Oral Tablet (ELIQUIS)Indica tions:A-fib (HCC) Take 1 Tab by mouth 2 times a day. 180 Tab 3 0 Active predniSONE 5 MG Oral Tablet (Deltasone) Take 1 Tablet by mouth in the morning. Active Pantoprazole Sodium 40 MG Oral Tablet Delayed Release (PROTONIX) Take 1 Tab by mouth daily. 30 Tab 5 0 Active Spironolactone 25 MG Oral Tablet (Aldactone) Take 1 Tablet by mouth in the morning. 90 Tab 3 1 Active Gabapentin 300 MG Oral Capsule (Neurontin) Take 1 Capsule by mouth in the morning and 1 Capsule before bedtime. Active Fluticasone-Joseph meterol 500-50 MCG/ACT Inhalation Aerosol Powder Breath Activated (Advair Diskus) USE 1 INHALATION BY ORAL INHALATION TWICE A DAY FOR COPD REPLACES SYMBICORT RINSE MOUTH AFTER USE 2 Active B-12 1000 MCG Oral Tablet daily. 4 Active Rosuvastatin Calcium 20 MG Oral Tablet (Crestor)Indica tions:HTN, goal below 140/90,Dyslipid emia, goal LDL below 70 Take 1 Tablet by mouth in the morning. 90 Tablet 3 4 Active Metoprolol Succinate ER 50 MG Oral Tablet Extended Release 24 Hour (toPROL XL)Indications: HTN, goal below 140/90,Dyslipid emia, goal LDL below 70 Take 1 Tablet by mouth in the morning and 1 Tablet before bedtime. 180 Tablet 3 4 Active Furosemide 40 MG Oral Tablet (Lasix) Take 1.5 Tablets by mouth in the morning. 4 Active [employer] Verio Flex System w/Device Kit 4 Active OneTouch Verio In Vitro Strip 4 Active OneTouch Delica Plus [id number] 4 Active metFORMIN HCl ER 500 MG Oral Tablet Extended Release 24 Hour (Glucophage XR) Take 1 Tablet by mouth in the morning. 90 Tablet 3 4 Active oxyCODONE HCl 5 MG Oral Tablet (Oxy IR) Take 1 Tablet by mouth every 8 hours as needed for Pain, Moderate. 30 Tablet 4 Active documented as of this encounter (statuses as of 10/28/2024) Active Problems Problem Noted Date Diagnosed Date Type 2 diabetes mellitus wit h diabetic polyneuropathy, without long-term current use of insulin 08/28/2024 Assessment & Plan (10/16/2024 11:39 AM EST): "RED FLAG" Diabetic symptoms: Confusion and Vision Changes Goal HgbA1c <8 Diabetic Complications Vascular (examples: PVD, PAD, CAD, CVA) Neurologic (example: Peripheral Neuropathy) Medication Regimen Metformin DM Secondary Prevention Moderate-High Intensity Statin Additional Comments Last A1c at goal Type 2 diabetes mellitus wit h diabetic polyneuropathy, without long-term current use of insulin 08/28/2024 Type 2 diabetes mellitus wit h diabetic polyneuropathy, without long-term current use of insulin 08/28/2024 Type 2 diabetes mellitus wit h diabetic polyneuropathy, without long-term current use of insulin 08/28/2024 Type 2 diabetes mellitus wit h diabetic polyneuropathy, without long-term current use of insulin 08/28/2024 Type 2 diabetes mellitus wit h diabetic polyneuropathy, without long-term current use of insulin 08/28/2024 Type 2 diabetes mellitus wit h diabetic polyneuropathy, without long-term current use of insulin 08/28/2024 Arthralgia of right elbow 08/23/2024 Aspiration into airway 08/23/2024 Hemoptysis 08/23/2024 Avulsion of skin of left lower leg 08/23/2024 Bilateral edema of lower extremity 08/23/2024 Cellulitis 08/23/2024 Chest pain 08/23/2024 Chronic anemia 08/23/2024 Bilateral cataracts 08/23/2024 Elevated lactic acid level 08/23/2024 History of tooth extraction 08/23/2024 Leukocytosis 08/23/2024 PAC (premature atrial contraction) 08/23/2024 Recurrent falls 08/23/2024 Rhinovirus infection 08/23/2024 Laceration of left lower leg 08/23/2024 Open wound of lower leg with complication 2023 Tear of skin of multiple sites of left lower ext remity 08/23/2024 Assessment & Plan (10/16/2024 11:39 AM EST): Wound care 3x week, wound clinic f/u weekly Traumatic open wound of left lower leg with heriberto yed healing 08/23/2024 Assessment & Plan (10/16/2024 11:39 AM EST): Dressing in place Traumatic open wound of righ t lower leg with delayed healing 08/23/2024 Thrombocytopenia 08/23/2024 Traumatic hematoma of left lower leg 08/23/2024 Vitamin D deficiency 08/23/2024 Vomiting 08/23/2024 Weakness 08/23/2024 Wound dehiscence 08/23/2024 Food insecurity 05/20/2024 Overview: Per [facility] Protocol Hospital discharge follow-up 04/26/2024 Nuclear senile cataract 04/19/2024 Pinguecula 04/19/2024 Hypertensive heart disease w ith chronic diastolic congestive heart failure 03/15/2024 Type 2 diabetes mellitus wit hout complication, without long-term current use of insulin 01/12/2024 Chronic heart failure with preserved ejection fr action 03/29/2023 Assessment & Plan (10/16/2024 11:39 AM EST): Euvolemic today Lasix 60mg plus spironolactone 25mg daily HTN, goal below 140/90 03/29/2023 Assessment & Plan (10/16/2024 11:39 AM EST): BP at goal Pneumonia of both lower lobes due to infectious organism 01/10/2023 Prediabetes 01/10/2023 Aneurysm of the ascending aorta, without rupture 08/02/2022 Dyslipidemia, goal LDL below 70 10/22/2020 Assessment & Plan (10/16/2024 11:39 AM EST): Continue statin Longstanding persistent atrial fibrillation 09/09 Assessment & Plan (10/16/2024 11:39 AM EST): Rate controlled Continue eliquis Polyneuropathy, unspecified 04/28/2020 SVT (supraventricular tachycardia) 12/10/2019 Ascending aorta enlargement 12/10/2019 History of rheumatoid arthritis 06/26/2017 Current chronic use of systemic steroids 017 Enlarged prostate 08/23/2016 Encounter for long-term (current) use of medicat ions 11/07/2002 Overview (08/01/2017): ICD-10 update of inactive term GENERAL OSTEOARTHROSIS 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 documented as of this encounter (statuses as of 10/28/2024) Resolved Problems Problem Noted Date Diagnosed Date Resolved Date Multiple skin tears 04/26/2024 08/07/20 Overview (08/07/2024): history Bilateral cellulitis of lower leg 04/26/2024 08/07/2024 Overview (08/07/2024): history Superficial foreign body of right leg without major open wound and without infection 01/12/2024 1 Overview (08/07/2024): history COPD, group A, by GOLD 2017 classification 05/22/2023 01/12/2024 Overview: Per COPD GOLD Classification Chronic diastolic heart failure 01/10/2023 03/29/2023 Venous stasis ulcer limited to breakdown of skin without varicose veins 01/10/2023 01/12/2024 Steroid-induced hyperglycemia 01/10/2023 08/07/2024 Overview (08/07/2024): history History of COVID-19 10/25/2022 01/12/20 24 COPD exacerbation 08/02/2022 10/24/2023 Overview (10/24/2023): history Right heart failure, unspecified 08/02/2022 03/29/2023 Septic bursitis of elbow, right 07/15/2022 01/12/2024 Swelling of right foot 07/15/202201/11 Cellulitis of right arm 07/15/202207/11 Overview (08/07/2024): history COVID-19 virus infection 07/15/2022 Unspecified inflammatory spo ndylopathy, cervical region 10/22/2020 03/05/2021 Age-related osteoporosis wit hout current pathological fracture 04/28/2020 03/05/2021 Simple chronic bronchitis 07/10/2019 History of colon polyps 06/28/201912/08 Overview (12/30/2019): Historical. Routine medical exam 12/21/2016 020 Overview (12/30/2019): Acute. Rheumatoid arthritis involving multiple sites 12/22/19 17 06/26/2017 Benign neoplasm of colon 07/31/2007 Overview (08/07/2007): hyperplastic polyp--repeat 10 years ADVANCE DIRECTIVE INFORMATION 05/04/2005 12/30/2019 Overview (12/30/2019): 2No, Advance Directive brochure offered , patient declined. Historical. Osteoporosis 10/07/2002 05/02/2012 Papilledema 01/20/1999 11/24/1999 Tobacco use disorder 998 Rheumatoid arthritis 017 Pleural effusion 11/24/1999 Iridocyclitis 11/24/1999 Peripheral neuropathic pain 12/30/2019 Overview (12/30/2019): Acute. documented as of this encounter (statuses as of 10/28/2024) Immunizations Name Administration Dates Next Due COVID-19 mRNA, LNP-s, No Pre serve, 2-Dose Series (Moderna) 01/04/2021,12/07/2020 COVID-19, mRNA, LNP-s, PF, B ooster, 100mcg/0.5mg (Moderna) 08/30/2021 Pneumococcal Conjugate Vacc, 13 Valent (Prevnar) 11/07/2016 Pneumococcal Conjugate Vacci ne, 20-valent ([id number]) 08/02/2022 Pneumococcal Polysaccharide PPV23 (Pneumovax) 07/30/2020,11/05/2018,07/23/2007 Seasonal Influenza Vac., MDV , IM, 0.5 mL (Fluzone) 06/29/2017,07/12/2016,07/08/2015,07/07,07/03/2013,07/06/2011,07/23/2008 ,07/23/2007 Seasonal Influenza Virus Vac cine, Unspecified Formulation 07/27/2021,07/10/2020,07/10/2019,07/24,07/06/2018,07/08/2015,06/13/2015 ,07/07/2014,07/03/2013,07/23/2012,06/10,07/29/2010,07/09/2010, 8,08/20/2007,07/23/2007,09/22/2005,02/2002,09/13/2001,07/09/2000,07/26/19 99 Seasonal Influenza, High Dos e, Trivalent, PF, IM (Fluzone HD) 08/28/2024 Seasonal Influenza, PF, 6 M & above, IM , (FluLaval or Fluzone) 07/10/2020,07/10/2019,07/06/2018 Seasonal Influenza, Quadriva lent Hd (Fluzone Hd) 06/16/2023,07/27/2021 Seasonal Influenza, Trivalen t, Adjuvanted, 65+ YRS, PF, (Fluad) 08/09/2018 TD - Tetanus/Diptheria (ADULT) 10/17/2012,2002 TDAP (age 10 and older)(Boostrix) 02/07/2016 documented [...] Date Recorded PHQ Adult Total Score 0 05/16/2024 Hunger Vital Sign Answer Date Recorded Within the past 12 months, y ou worried that your food would run out before you got the money to buy more. Sometimes true Within the past 12 months, t he food you bought just didn't last and you didn't have money to get more. Sometimes true Childcare Answer Date Recorded Do you feel overwhelmed with taking care of a child, family member or friend? No 09/02/2024 Does your family need help f inding childcare? (Household - for ages 0-17 years) Not on file 09/02/2024 Clothing Answer Date Recorded Have you been unable to get clothing when it was really needed? No 09/02/2024 Is your family able to get c lothes or diapers when needed? (Household - for ages 0-17 years) Not on file 09/02/2024 Personal Safety Answer Date Recorded Do you feel unsafe or have concerns for your saf ety? No 09/02/2024 Do you have concerns for you r family's safety? (Household - for ages 0-17 years) Not on file 09/02/2024 Utilities Answer Date Recorded Do you have trouble paying y our heating, water, or electric bill? Yes 09/02/2024 Is your family able to pay t he heat, water, or electric bill? (Household - for ages 0-17 years) Not on file 09/02/2024 Does your family have access to good internet? (Household - for ages 0-17 years) Not on file 09/02/2024 Employment Status Answer Date Recorded Are you unemployed or without regular income? No 09/02/2024 Does the household have a re lar source of income? (Household - for ages 0-17 years) Not on file 09/02/2024 Social Connections Answer Date Recorded How often do you feel lonely or isolated from th ose around you? Never 09/02/2024 Financial Resource Strain Answer Date R ecorded Do you have any trouble payi ng for your medications, or do you think you might in the future? No 09/02/2024 Does your family have troubl e paying for medicine? (Household - for ages 0-17 years) Not on file 09/02/2024 Transportation Needs Answer Date Record ed Do you have trouble getting a ride to medical visits or work? (Adult - for ages 18 years and over) Not on file 09/02/2024 Does your family have a hard time getting a ride to doctors visits? (Household - for ages 0-17 years) Not on file 09/02/2024 Has lack of transportation k ept you from medical appointments, meetings, work, or from getting things needed for daily living? Check all that apply. No 09/02/2024 Do you (or your family) have trouble finding or paying for a ride (transportation)? (Household - for ages 0-17 years) Not on file 09/02/2024 Housing Stability Answer Date Recorded Do you currently live in a s helter or have no steady place to sleep at night? No 09/02/2024 Do you think you are at risk of becoming homeless? (Adult - for ages 18 years and over) Not on file 09/02/2024 Does your family worry about paying for your home or becoming homeless? (Household - for ages 0-17 years) Not on file 1 11/02/2023 Are you homeless or worried that you might be in the future? No 09/02/2024 Are you (or your family) handy eless or worried that you might be in the future? (Household - for ages 0-17 years) Not on file Food Insecurity Answer Date Recorded Do you need food for this week? Yes 09/02/2024 Are you able to get enough f ood for your family? (Household - for ages 0-17 years) Not on file 09/02/2024 Does your family need food t his week? (Household - for ages 0-17 years) Not on file 09/02/2024 Do you always have enough fo od for your family? 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 Answer Date of Assessment Author No 07/15/2022 12:57 PM EDT Marni Nuñez RN * Are you blind or do you have serious difficulty seeing, even when wearing glasses? Answer Date of Assessment Author No 07/15/2022 12:57 PM EDT Marni Nuñez RN * Do you have serious difficulty walking or climbing stairs? (5 years old or older) Answer Date of Assessment Author No 07/22/2022 9:35 AM EDT Jean Miranda RN * Do you have difficulty dressing or bathing? (5 years old or older) Answer Date of Assessment Author No 07/15/2022 12:57 PM EDT Marni Nuñez RN * Because of a physical, mental, or emotional condition, do you have difficulty doing errands alone such as visiting a doctor’s office or shopping? (15 years old or older) Answer Date of Assessment Author No 07/15/2022 12:57 PM EDT Marni Nuñez RN documented as of this encounter Mental Status * Because of a physical, mental, or emotional condition, do you have serious difficulty concentrating, remembering, or making decisions? (5 years old or older) Answer Entry Date Author No 07/15/2022 12:57 PM EDT Marni Nuñez RN documented in this encounter Plan of Treatment Upcoming Encounters Date Type Department Care Team (Late st Contact Info) Description 02/13/2025 9:00 AM EDT Office Visit Cardiology, [facility] [address] [place] [address] Purvi Morales PA-C [address] [place] [address] Health Maintenance Due Date Last Done Comments Diabetic Foot Exam 1961 Adult Wellness Visit 2009 DXA Scan 11/04/2016 11/04/2013, 10/10, 10/22/2010, Additional history exists Diabetic Eye Exam 05/22/2024 05/22/2023, , 09/14/1998, Additional history exists HbA1c 01/30/2025 08/01/2024, 07/10, 03/29/2023, Additional history exists GFR 03/28/2025 03/28/2024, 05/0 06/2024, 01/29/2024, Additional history exists Depression Screening 05/16/2025 05/16/2024 Albumin/Creatinine Ratio 08/30/2025 08/30/2024, 07/10 DTap/Tdap Vaccines (2 - Td or Tdap) 02/06/2026 02/07/2016, 10/17/2012, 12/07/2002, Additional history exists COVID-19 Vaccine Discontinued 08/30/2021, , 12/07/2020 Pneumococcal Vaccine: 50+ Years Completed 08/02/2022, 07/30/2020, 11/05/2018, Additional history exists Influenza Vaccine (FLU shot) Completed 08/28/2024, 06/16/2023, 07/27/2021, Additional history exists HPV (Gardasil) Vaccine Aged Out No lo nger eligible based on patient's age to complete this topic Hepatitis B Vaccine Aged Out No longe r eligible based on patient's age to complete this topic MENINGOCOCCAL (MENACTRA/MENVEO) Aged Out No longer eligible based on patient's age to complete this topic Zoster Vaccines Discontinued documented as of this encounter Medical Devices Not on filedocumented as of this encounter Advance Directives * Full Code (Latest Code Status on File) Date Activated Date Inactivated Comments 07/15/2022 2:11 PM 07/22/2022 4:34 PM This order reflects the patients wishes and were consensually agreed upon. Question Answer Comments Discussion of Advance Directives occurred with: Patient Care Teams Resaw Operator Relationship Specialty Start Date End Date Pura Banerjee CRNP [address] [place] [address] PCP - General Nurse Practitioner 04/09/24 documented as of this encounter
--- OUTSIDE RECORDS SUMMARY | 2025-01-17 22:41 | External Medical Summary | Summary of Care ---
Author Name Unknown Organization [facility] Address [address] [facility] [place] [address] Phone [phone] Care Team Providers Care Player Manager Name Role Phone GermanPura hyde Rochelle CHAPMAN Primary Care Provider Reason for Visit * Reason Onset Date Comments [facility]: Maintenance 01/01/2025 Encounter Details Date Type Department Care Team (Late st Contact Info) Description 01/01/2025 Telephone [facility], [facility] [address] [place] [address] Alexsandra Scott RN [address] [place] [address] [facility]: Maintenance Allergies Active Allergy Reactions Criticality Noted Date Comments Other - Drugs Diarrhea,Nausea/vomiting 10/12/18 99 Dimox documented as of this encounter (statuses as of 01/01/2025) Medications finasteride (PROSCAR) 5 MG Tablet Take [...] by mouth in the morning. 4 Active OneTouch Verio Flex System w/Device Kit 4 Active OneTouch Verio In Vitro Strip 4 Active OneTouch Delica Plus [id number] 4 Active metFORMIN HCl ER 500 MG Oral Tablet Extended Release 24 Hour (Glucophage XR) Take 1 Tablet by mouth in the morning. 90 Tablet 3 4 Active oxyCODONE HCl 5 MG Oral Tablet (Oxy IR) Take 1 Tablet by mouth every 8 hours as needed for Pain, Moderate. 30 Tablet 4 Active documented as of this encounter (statuses as of 01/01/2025) Active Problems Problem Noted Date Diagnosed Date [...] as of this encounter (statuses as of 01/01/2025) Resolved Problems Problem Noted Date Diagnosed Date [...] (08/07/2024): history History of COVID-19 10/25/2022 01/12/20 COPD exacerbation 08/02/2022 10/24/2023 Overview (10/24/2023): history Right heart failure, unspecified 08/02/2022 03/29/2023 Septic bursitis of elbow, right 07/15/2022 01/12/2024 Swelling of right foot 07/15/202201/11 Cellulitis of right arm 07/15/2022 10 Overview (08/07/2024): history COVID-19 virus infection 07/15/2022 [...] as of this encounter (statuses as of 01/01/2025) Immunizations Name Administration Dates Next Due COVID-19 mRNA, LNP-s, No Pre serve, 2-Dose Series (Moderna) 01/04/2021,12/07/2020 COVID-19, mRNA, LNP-s, PF, B ooster, 100mcg/0.5mg (Moderna) 08/30/2021 Pneumococcal Conjugate Vacc, 13 Valent (Prevnar) 11/07/2016 Pneumococcal Conjugate Vacci ne, 20-valent ([id number]) 08/02/2022 Pneumococcal Polysaccharide PPV23 (Pneumovax) 07/30/2020,11/05/2018,07/23/2007 Seasonal [...] No 09/02/2024 Does the household have a [facility] source of income? (Household - for ages [...] ages 0-17 years) Not on file 09/02/2024 Food Insecurity Answer Date Recorded Within the past 12 months, y ou worried that your food would run out before you got the money to buy more. Sometimes true Within the past 12 months, t he food you bought just didn't last and you didn't have money to get more. Sometimes true Do you need food for this week? 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 (5 years old or older) Answer Entry Date Author No 07/15/2022 12:57 PM EDT Marni Nuñez RN documented in this encounter Miscellaneous Notes * Telephone Encounter - Alexsandra Scott RN - 01/01/2025 9:40 AM EDT Spoke with son, Kendrick. He/pt are not interested in having [facility] services at this time. [facility]. Offered [facility] for CM and he declined - not interested in any other services at this time. Advised to call PCP office if having any concerns. He verbalizes understanding. Episode closed for GAH. documented in this encounter Plan of Treatment Upcoming Encounters Date Type Department Care Team (Late st Contact Info) Description 02/13/2025 9:00 AM EDT Office Visit Cardiology, [facility] [address] [place] [phone] Purvi Morales PA-C [address] [place] [address] Health Maintenance Due Date Last Done Comments [...] on patient's age to complete this topic Meningitis B Vaccine (Bexsero/Trumemba) Aged Out No longer eligible based on [...] Advance Directives occurred with: Patient Care Teams Player Manager Relationship Specialty Start Date End Date Pura Banerjee CRNP [address] [place] [id number] PCP - General Nurse Practitioner 04/09/24 documented as of this encounter
--- OUTSIDE RECORDS SUMMARY | 2025-01-17 22:42 | External Medical Summary | Summary of Care ---
Author Name Unknown Organization [facility] Address [address] [place] [address] Phone [phone] Care Team Providers Care Meat And Seafood Manager Name Role Phone Pura Banerjee Primary Care Provider Reason for Visit * Reason Onset Date Comments Appointment 09/02/2024 Encounter Details Date Type Department Care Team (Late st Contact Info) Description 09/02/2024 Telephone [facility], [place] [address] [place] [address] Elizabeth Doyle, CRISTOFER [address], [place] [phone] Appointment Allergies Active Allergy Reactions Criticality Noted Date Comments Other - Drugs Diarrhea,Nausea/vomiting 10/12/18 99 Dimox documented as of this encounter (statuses as of 09/02/2024) Medications finasteride (PROSCAR) 5 MG Tablet Take [...] Vitro Strip 4 Active OneTouch Delica Plus [id number] 4 Active metFORMIN HCl ER 500 MG Oral Tablet Extended Release 24 Hour (Glucophage XR) Take 1 Tablet by mouth in the morning. 90 Tablet 3 4 Active oxyCODONE HCl 5 MG Oral Tablet (Oxy IR) Take 1 Tablet by mouth every 8 hours as needed for Pain, Moderate. 30 Tablet 4 Active documented as of this encounter (statuses as of 09/02/2024) Active Problems Problem Noted Date Diagnosed Date [...] sites of left lower ext remity 08/23/2024 Traumatic open wound of left lower leg with heriberto yed healing 08/23/2024 Traumatic open wound of righ t lower [...] 08/02/2022 Dyslipidemia, goal LDL below 70 10/22/2020 Longstanding [...] as of this encounter (statuses as of 09/02/2024) Resolved Problems Problem Noted Date Diagnosed Date [...] as of this encounter (statuses as of 09/02/2024) Immunizations Name Administration Dates Next Due COVID-19 mRNA, LNP-s, No Pre serve, 2-Dose Series (Moderna) 01/04/2021,12/07/2020 COVID-19, mRNA, LNP-s, PF, B ooster, 100mcg/0.5mg (Moderna) 08/30/2021 Influenza, Whole Virus 07/09/2000,07/26/1999 Pneumococcal Conjugate Vacc, 13 Valent (Prevnar) 11/07/2016 Pneumococcal Conjugate Vacci ne, 20-valent ([id number]) 08/02/2022 Pneumococcal Conjugate Vacci ne, 7 Valent 07/09/1999 Pneumococcal Polysaccharide PPV23 (Pneumovax) 07/30/2020,11/05/2018,07/23/2007 Seasonal Influenza Vac., MDV , IM, 0.5 mL (Fluzone) 06/29/2017,07/12/2016,07/08/2015,07/07,07/03/2013,07/06/2011,07/23/2008 ,07/23/2007,09/22/2005,08/13/2002,03/2001 Seasonal Influenza Virus Vac cine, Unspecified Formulation 07/27/2021,07/10/2020,07/10/2019,07/24,07/06/2018,07/08/2015,06/13/2015 ,07/07/2014,07/03/2013,07/23/2012,06/10,07/29/2010,07/09/2010, 8,08/20/2007,07/23/2007,09/22/2005,02/2002,09/13/2001,07/09/2000,07/26/19 99 Seasonal Influenza, High Dos e, Trivalent, PF, IM (Fluzone HD) 08/28/2024 Seasonal Influenza, PF, 6 M & above, IM , (FluLaval or Fluzone) 07/10/2020,07/10/2019,07/06/2018 Seasonal Influenza, Quadriva lent Hd (Fluzone Hd) 06/16/2023,07/27/2021 Seasonal Influenza, Trivalen t, Adjuvanted, 65+ YRS, PF, (Fluad) 08/09/2018 TD - Tetanus/Diptheria (ADULT) 10/17/2012,2002,05/20/1999 TDAP (age 10 and older)(Boostrix) 02/07/2016 documented [...] a child, family member or friend? No 08/29/2024 Does your family need help f inding childcare? (Household - for ages 0-17 years) Not on file 08/29/2024 Clothing Answer Date Recorded Have you been unable to get clothing when it was really needed? No 08/29/2024 Is your family able to get c lothes or diapers when needed? (Household - for ages 0-17 years) Not on file 08/29/2024 Personal Safety Answer Date Recorded Do you feel unsafe or have concerns for your saf ety? No 08/29/2024 Do you have concerns for you r family's safety? (Household - for ages 0-17 years) Not on file 08/29/2024 Utilities Answer Date Recorded Do you have trouble paying y our heating, water, or electric bill? Yes 08/29/2024 Is your family able to pay t he heat, water, or electric bill? (Household - for ages 0-17 years) Not on file 08/29/2024 Does your family have access to good internet? (Household - for ages 0-17 years) Not on file 08/29/2024 Employment Status Answer Date Recorded Are you unemployed or without regular income? No 08/29/2024 Does the household have a re gular source of income? (Household - for ages 0-17 years) Not on file 08/29/2024 Social Connections Answer Date Recorded How often do you feel lonely or isolated from th ose around you? Never 08/29/2024 Financial Resource Strain Answer Date R ecorded Do you have any trouble payi ng for your medications, or do you think you might in the future? No 08/29/2024 Does your family have troubl e paying for medicine? (Household - for ages 0-17 years) Not on file 08/29/2024 Transportation Needs Answer Date Record ed Do you have trouble getting a ride to medical visits or work? (Adult - for ages 18 years and over) Not on file 08/29/2024 Does your family have a hard time getting a ride to doctors visits? (Household - for ages 0-17 years) Not on file 08/29/2024 Has lack of transportation k ept you from medical appointments, meetings, work, or from getting things needed for daily living? Check all that apply. No 08/29/2024 Do you (or your family) have trouble finding or paying for a ride (transportation)? (Household - for ages 0-17 years) Not on file 08/29/2024 Housing Stability Answer Date Recorded Do you currently live in a s helter or have no steady place to sleep at night? No 08/29/2024 Do you think you are at risk of becoming homeless? (Adult - for ages 18 years and over) Not on file 08/29/2024 Does your family worry about paying for your home or becoming homeless? (Household - for ages 0-17 years) Not on file 1 10/29/2023 Are you homeless or worried that you might be in the future? No 08/29/2024 Are you (or your family) handy eless or worried that you might be in the future? (Household - for ages 0-17 years) Not on file Food Insecurity Answer Date Recorded Do you need food for this week? No 08/29/2024 Are you able to get enough f ood for your family? (Household - for ages 0-17 years) Not on file 08/29/2024 Does your family need food t his week? (Household - for ages 0-17 years) Not on file 08/29/2024 Do you always have enough fo od for your family? 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 Duplicate documented in this encounter Plan of Treatment Upcoming Encounters Date Type Department Care Team (Late st Contact Info) Description 09/02/2024 12:50 PM EST Home Visit [facility] [address] [place] [address] Karen Melgar, Community Health Culinary Worker [address] [facility] [place] [address] 10/10/2024 1:00 PM EST Home Visit [facility], [facility] [address] [place] [address] Ottoniel Melo PA-C [address] [place] [address] 10/28/2024 12:30 PM EST Home Visit [facility] [place], [facility] [address] [address] Alexsandra Scott RN [address] [place] [address] 01/22/2025 9:00 AM EDT Office Visit Cardiology, [facility] [place] [address] [address] Purvi Morales PAFrancie [address] [place] [address] Health Maintenance Due Date Last Done Comments Diabetic Foot Exam 1961 Adult Wellness Visit 2009 DXA Scan 11/04/2016 11/04/2013, 10/10, 10/22/2010, Additional history exists Diabetic Eye Exam 05/22/2024 05/22/2023, , 09/14/1998, Additional history exists HbA1c 01/30/2025 08/01/2024, 07/10, 03/29/2023, Additional history exists GFR 03/28/2025 03/28/2024, 05/06/2024, 01/29/2024, Additional history exists Depression Screening 05/16/2025 05/16/2024 Albumin/Creatinine Ratio 08/01/2025 08/01/2024 DTap/Tdap Vaccines (2 - Td or Tdap) 02/06/2026 02/07/2016, 10/17/2012, 12/07/2002, Additional history exists COVID-19 Vaccine Discontinued 08/30/2021, , 12/07/2020 Pneumococcal Vaccine: 65+ Years Completed 08/02/2022, 07/30/2020, [...] Advance Directives occurred with: Patient Care Teams Meat And Seafood Manager Relationship Specialty Start Date End Date Pura Banerjee CRNP [facility] [address] [address] PCP - General Nurse Practitioner 04/09/24 documented as of this encounter
--- OUTSIDE RECORDS SUMMARY | 2025-01-17 22:42 | External Medical Summary | Summary of Care ---
Author Name Unknown Organization [facility] Address [address] [place] [address] Phone [phone] Care Team Providers Care Manager Target Name Role Phone Germanmary ellen Pura CHAPMAN Primary Care Provider Reason for Visit * Reason Onset Date Comments Information 10/23/2024 Encounter Details Date Type Department Care Team (Late st Contact Info) Description 10/23/2024 Telephone [facility], [place] [address] [place] [address] Lisa Hogan, CRISTOFER [address] [place], [place] [phone] Information (///) Allergies Active Allergy Reactions Criticality Noted Date Comments Other - Drugs Diarrhea,Nausea/vomiting 10/12/18 99 Dimox documented as of this encounter (statuses as of 10/23/2024) Medications finasteride (PROSCAR) 5 MG Tablet Take [...] Vitro Strip 4 Active OneTouch Delica Plus [id number] 4 Active metFORMIN HCl ER 500 MG Oral Tablet Extended Release 24 Hour (Glucophage XR) Take 1 Tablet by mouth in the morning. 90 Tablet 3 4 Active oxyCODONE HCl 5 MG Oral Tablet (Oxy IR) Take 1 Tablet by mouth every 8 hours as needed for Pain, Moderate. 30 Tablet 4 Active documented as of this encounter (statuses as of 10/23/2024) Active Problems Problem Noted Date Diagnosed Date [...] as of this encounter (statuses as of 10/23/2024) Resolved Problems Problem Noted Date Diagnosed Date [...] as of this encounter (statuses as of 10/23/2024) Immunizations Name Administration Dates Next Due COVID-19 mRNA, LNP-s, No Pre serve, 2-Dose Series (Moderna) 01/04/2021,12/07/2020 COVID-19, mRNA, LNP-s, PF, B ooster, 100mcg/0.5mg (Moderna) 08/30/2021 Pneumococcal Conjugate Vacc, 13 Valent (Prevnar) 11/07/2016 Pneumococcal Conjugate Vacci ne, 20-valent ([id number]) 08/02/2022 Pneumococcal Polysaccharide PPV23 (Pneumovax) 07/30/2020,11/05/2018,07/23/2007 Seasonal [...] No 09/02/2024 Does the household have a surgeons choice medical centerr source of income? 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 on file Not on [...] encounter Miscellaneous Notes * Telephone Encounter - Lisa Hogan OSA - 10/23/2024 11:14 AM EST Incoming call from SonKendrick to cx appt with RNCM on 10/28 as he is sick and doesn't want him to be around anyone so he will cb to rs once he is well and gives ok documented in this encounter Plan of Treatment Upcoming Encounters Date Type Department Care Team (Late st Contact Info) Description 02/13/2025 9:00 AM EDT Office Visit Cardiology, [facility] [address] [place] [address] Purvi Morales PA-C [address] [place] [address] Health Maintenance Due Date Last Done Comments [...] Advance Directives occurred with: Patient Care Teams Manager Target Relationship Specialty Start Date End Date Pura Banerjee CRNP [address] [place] [address] PCP - General Nurse Practitioner 04/09/24 documented as of this encounter
--- OUTSIDE RECORDS SUMMARY | 2025-01-17 22:42 | External Medical Summary | Summary of Care ---
Author Name Unknown Organization [facility] Address [address] [place] [address] Phone [phone] Care Team Providers Care Elderly Caregiver Name Role Phone Pura Banerjee Primary Care Provider Encounter Details Date Type Department Care Team (Late st Contact Info) Description 09/02/2024 12:50 PM EST Home Visit Care Coordination and Integration [address] [place] [address] Karen Melgar, Community Health Final Cigar And Box Examiner [address] [place], [place] [phone] Allergies Active Allergy Reactions Criticality Noted Date Comments Other - Drugs Diarrhea,Nausea/vomiting 10/12/18 99 Dimox documented as of this encounter (statuses as of 09/03/2024) Medications finasteride (PROSCAR) 5 MG Tablet Take [...] by mouth in the morning. 4 Active [employer]To[employer] Verio Flex System w/Device Kit 4 Active OneTouch Verio In Vitro Strip 4 Active OneTouch Delica Plus [id number] 4 Active metFORMIN HCl ER 500 MG Oral Tablet Extended Release 24 Hour (Glucophage XR) Take 1 Tablet by mouth in the morning. 90 Tablet 3 4 Active oxyCODONE HCl 5 MG Oral Tablet (Oxy IR) Take 1 Tablet by mouth every 8 hours as needed for Pain, Moderate. 30 Tablet 4 Active documented as of this encounter (statuses as of 09/03/2024) Active Problems Problem Noted Date Diagnosed Date [...] as of this encounter (statuses as of 09/03/2024) Resolved Problems Problem Noted Date Diagnosed Date [...] as of this encounter (statuses as of 09/03/2024) Immunizations Name Administration Dates Next Due COVID-19 mRNA, LNP-s, No Pre serve, 2-Dose Series (Moderna) 01/04/2021,12/07/2020 COVID-19, mRNA, LNP-s, PF, B ooster, 100mcg/0.5mg (Moderna) 08/30/2021 Pneumococcal Conjugate Vacc, 13 Valent (Prevnar) 11/07/2016 Pneumococcal Conjugate Vacci ne, 20-valent ([id number]) 08/02/2022 Pneumococcal Polysaccharide PPV23 (Pneumovax) 07/30/2020,11/05/2018,07/23/2007 Seasonal [...] 09/02/2024 Does the household have a re gular [...] Job Start Date Job End Date 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 (15 years old or older) Answer Date of Assessment Author No 07/15/2022 12:57 PM Marni Brown RN documented as of this encounter Mental Status * Because of a physical, mental, or emotional condition, do you have serious difficulty concentrating, remembering, or making decisions? (5 years old or older) Answer Entry Date Author No 07/15/2022 12:57 PM Marni Brown RN documented in this encounter Progress Notes * Karen Melgar Community Health Final Cigar And Box Examiner - 09/03/2024 9:04 AM EST Telemedicine visit: No Community Health Final Cigar And Box Examiner (NICOLASA) documentation: CHW home visit this date to address SDOH. Pt has food insecurity and states he can't pay for his fuel for his furnace. Pt's son, Devon present for visit. CHW spoke with the pt about his needs. He did not qualify for [facility] in the past because he made too much money. Pt's son called to speak with someone from this program, however, he was on hold the entire visit. CHW provided pt and his son with contact numbers of organizations in the area that will assist withpayment for fuel oil. CHW completed the application on line for Assistance Office. Applying for food assistance and heat assistance. Through the [facility] these are areas of need identified by the pt. CHW provided resource booklet from the [facility] with phone numbers and locations of food pino in the area. Pt stated that the food bank food is old food and spoiled. CHW suggested home delivered meals for pt. Pt was resistant to that suggestion, also. CHW explained that those were the only options that were available that cost him nothing. Pt's son stated that he brings food to his dad when he needs it. Pt stated he has never had SNAP. Pt's son was put as the person that could use the SNAP benefits due to pt inability to go grocery shopping. CHW convinced the pt to at least give the home delivered meals a try. Pt agreed. CHW called the [facility] and spoke with Kasandra in that office and she completed a brief intake of pt. Kasandra stated she would call and schedule an appointment for someone to go to pt's home to complete an intake and get the home delivered meals set up. documented in this encounter Plan of Treatment Upcoming Encounters Date Type Department Care Team (Late st Contact Info) Description 10/10/2024 1:00 PM EST [facility] [place], [facility] [address] [address] Ottoniel Melo PA-C [address] [place] [address] 10/28/2024 12:30 PM EST [facility] Visit [facility], [facility] [address] [address] Alexsandra Scott RN [address] [place] [address] 01/22/2025 9:00 AM EDT Office Visit Cardiology, [facility] [address] [place] [address] Purvi Morales PA-C [address] [place] [address] Health Maintenance Due Date Last Done Comments [...] Advance Directives occurred with: Patient Care Teams Elderly Caregiver Relationship Specialty Start Date End Date Pura Banerjee CRNP [address] [place] [address] PCP - General Nurse Practitioner 04/09/24 documented as of this encounter
--- OUTSIDE RECORDS SUMMARY | 2025-01-17 22:42 | External Medical Summary | Summary of Care ---
Author Name Unknown Organization [facility] Address [address] [place] [address] Phone [phone] Care Team Providers Care Data Integration Developer Name Role Phone Pura Banerjee Primary Care Provider Reason for Visit * Reason Onset Date Comments [facility]: Maintenance 09/02/2024 Encounter Details Date Type Department Care Team (Late st Contact Info) Description 09/02/2024 Telephone [facility], [place] [facility] [address] [place], [place] [phone] Ellen Whitney, CRISTOFER [address] [place], [place] [phone] [facility]: Maintenance Allergies Active Allergy [...] Vitro Strip 4 Active OneTouch Delica Plus [id number] 4 Active metFORMIN HCl ER 500 MG [...] (Prevnar) 11/07/2016 Pneumococcal Conjugate Vacci ne, 20-valent ([id number]) 08/02/2022 Pneumococcal Polysaccharide PPV23 (Pneumovax) 07/30/2020,11/05/2018,07/23/2007 Seasonal [...] Job Start Date Job End Date 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 Stated that I do not see a visit scheduled for that day. Looks like it was already canceled. Told him he had a visit today, 09/02 with the CHW at 1250. He confirmed this visit works for him. documented in this encounter Plan of Treatment Upcoming Encounters Date Type Department Care Team (Late st Contact Info) Description 09/02/2024 12:50 PM EST Home Visit Care Coordination and Integration [address] [place] [address] Karen Melgar, Community Health Power Regulator [address] [place] [facility] [place] [address] 10/10/2024 1:00 PM EST [facility] Visit [facility], [facility] [address] [address] Ottoniel Melo PA-C [address] [place] [address] 10/28/2024 12:30 PM EST [facility] Visit [facility] [place], [facility] [address] [place] [address] Alexsandra Scott RN [address] [place] [address] 01/22/2025 9:00 AM EDT Office Visit Cardiology, [facility] [address] [place] [address] Purvi Morales PA-C [address] [place] [address] Health Maintenance Due Date Last Done Comments [...] Advance Directives occurred with: Patient Care Teams Data Integration Developer Relationship Specialty Start Date End Date Pura Banerjee CRNP [address] [place] [address] PCP - General Nurse Practitioner 04/09/24 documented as of this encounter
--- OUTSIDE RECORDS SUMMARY | 2025-01-17 22:42 | External Medical Summary | Summary of Care ---
Author Name Unknown Organization [facility] Address [address] [facility] [place] [address] Phone [phone] Care Team Providers Care Lap Welder Name Role Phone Pura Banerjee Rochelle CHAPMAN Primary Care Provider Encounter Details Date Type Department Care Team (Late st Contact Info) Description 08/29/2024 12:30 PM EST [facility] [address] [place] [id number] Alexsandra Scott RN [address] [place] [address] Allergies Active Allergy Reactions Criticality Noted Date [...] by mouth in the morning. 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 Not on [...] Marni Nuñez RN documented in this encounter Progress Notes * Alexsandra Scott RN - 08/29/2024 11:44 AM EST Current Concerns: Pt seen for enrollment to [facility] and [facility] Admitted to [facility] 07/31/24 - 08/04/24 for traumatic hematoma of left lower leg, cellulitis, recurrent falls, CHF [facility] Son states is coming daily to do wound care on left leg and left arm - plan is to get wound vac for left leg wound once approved by the CT Wound care already completed today Goes to wound clinic ([facility] is working on getting equipment in the home - raised toilet seat, bedside commode, w/c and home lift chair Also ordering a scale and bp cuff monitor system Goals : Get out and around to do stuff Drive again Walk better Pt refused vitals to be done today - states [facility] and [facility] nurse were already here today and there were no concerns Has +2 edema of LE's He states this has improved since being in the hospital Son has been helping pt with daily needs, medications, helping him get food and cooks his meals Pt reports he has trouble paying all of his bills and can't even pay co-pays for appts He has to have his son get him food because he does not have enough money Also worried how he is going to buy heating oil for the winter Referral placed for [facility] Physical Exam: Physical Exam Constitutional: General: He is not in acute distress. Cardiovascular: Rate and Rhythm: Normal rate and regular rhythm. Pulses: Normal pulses. Heart sounds: Normal heart sounds. Pulmonary: Effort: Pulmonary effort is normal. Breath sounds: Normal breath sounds. Abdominal: General: Bowel sounds are normal. Palpations: Abdomen is soft. Musculoskeletal: Right lower leg: Edema (+2) present. Left lower leg: Edema (+2) present. Skin: General: Skin is warm and dry. Neurological: Mental Status: He is alert and oriented to person, place, and time. Review of Systems: Review of Systems Constitutional: Negative. HENT: Negative. Eyes: Negative. Respiratory: Positive for shortness of breath (JONES at times - at baseline). Cardiovascular: Positive for leg swelling. Gastrointestinal: Negative. Genitourinary: Negative. Musculoskeletal: Positive for arthralgias and gait problem. Skin: Positive for wound. Neurological: Positive for weakness (legs). Psychiatric/Behavioral: Negative. Care Plan Goal Progress: Orders Placed: No orders of the defined types were placed in this encounter. Medications Given: Care Gaps: Care Gaps Care gaps closed this contact: Education;Plan of Care (POC);Medications;Social determinants of health (SDOH) resources (08/29/24 1204) Type of education: Clinical/disease (08/29/24 1204) Type of medication care gap: Medication adherence (08/29/24 1204) Type of plan of care (POC) care gap: Creation of plan of care (POC) and/or Integrated Care Plan (ICP);Education and review of exacerbation plan (08/29/24 1204) Type of SDOH resource: Financial assistance;Food insecurity (08/29/24 1204) documented in this encounter Plan of Treatment Upcoming Encounters Date Type Department Care Team (Late st Contact Info) Description 10/10/2024 1:00 PM EST Home Visit [facility] [address] [place] [address] Ottoniel Melo PA-C [address] [place] [address] 10/28/2024 12:30 PM EST Home Visit [facility] [place], [facility] [address] [place] [address] Alexsandra Scott RN [address] [place] [address] 01/22/2025 9:00 AM EDT Office Visit Cardiology, [facility] [address] [place] [address] Purvi Morales PAFrancie [address] [place] [address] Health Maintenance Due Date Last Done Comments [...] Advance Directives occurred with: Patient Care Teams Lap Welder Relationship Specialty Start Date End Date Pura Banerjee CRNP [facility] [place] [id number] PCP - General Nurse Practitioner 04/09/24 documented as of this encounter
--- OUTSIDE RECORDS SUMMARY | 2025-01-17 22:42 | External Medical Summary | Summary of Care ---
Author Name Unknown Organization [facility] Address [address] [place] [address] Phone [phone] Care Team Providers Care Miller Helper Name Role Phone GermanPura hyde Rochelle CHAPMAN Primary Care Provider Reason for Visit * Reason Onset Date Comments Hospital Follow-Up Pt here for a hospital f/u from [facility] from 08/04 for heart failure and left leg ulcer. Pt was just at the wound clinic before this appointment. Medication Administration 08/28/2024 Flu an d/or Pneumo Inj Encounter Details Date Type Department Care Team (Late st Contact Info) Description 08/28/2024 11:00 AM EST Office Visit [facility] [address] [address] Doug Wharton MD [address] [place] [address] Type 2 diabetes mellitus with diabetic polyneuropathy, without long-term current use of insulin (HCC)*; Cellulitis of left lower extremity; Traumatic hematoma of left lower leg, sequela; Chronic heart failure with preserved ejection fraction (HCC); Longstanding persistent atrial fibrillation (HCC); Risk and functional assessment; Need for prophylactic vaccination and inoculation against influenza Allergies Active Allergy Reactions Criticality Noted Date Comments Other - Drugs Diarrhea,Nausea/vomiting 10/12/18 99 Dimox documented as of this encounter (statuses as of 08/28/2024) Medications finasteride (PROSCAR) 5 MG Tablet Take 1 Tab by mouth daily. 90 Tab 3 09/26/20 16 Active Vitamin D (Cholecalcifer ol) 25 MCG (1000 UT) Oral Tablet Take by mouth. 1 tab twice daily Active Apixaban 5 MG Oral Tablet (ELIQUIS)Indic ations:A-fib (HCC) Take 1 Tab by mouth 2 times a day. 180 Tab 3 09/04/20 20 Active predniSONE 5 MG Oral Tablet (Deltasone) Take 1 Tablet by mouth in the morning and 1 Tablet before bedtime. Active Pantoprazole Sodium 40 MG Oral Tablet Delayed Release (PROTONIX) Take 1 Tab by mouth daily. 30 Tab 5 09/11/20 20 Active Spironolactone 25 MG Oral Tablet (Aldactone) Take 1 Tablet by mouth in the morning. 90 Tab 3 03/05/20 21 Active Gabapentin 300 MG Oral Capsule (Neurontin) Take 1 Capsule by mouth in the morning and 1 Capsule before bedtime. Active Fluticasone-Sa lmeterol 500-50 MCG/ACT Inhalation Aerosol Powder Breath Activated (Advair Diskus) USE 1 INHALATION BY ORAL INHALATION TWICE A DAY FOR COPD REPLACES SYMBICORT RINSE MOUTH AFTER USE 02/11/20 22 Active B-12 1000 MCG Oral Tablet daily. 01/31/20 24 Active Rosuvastatin Calcium 20 MG Oral Tablet (Crestor)Indic ations:HTN, goal below 140/90,Dyslipi demia, goal LDL below 70 Take 1 Tablet by mouth in the morning. 90 Tablet 3 02/15/20 24 Active Metoprolol Succinate ER 50 MG Oral Tablet Extended Release 24 Hour (toPROL XL)Indications :HTN, goal below 140/90,Dyslipi demia, goal LDL below 70 Take 1 Tablet by mouth in the morning and 1 Tablet before bedtime. 180 Tablet 3 05/10/20 24 Active Furosemide 40 MG Oral Tablet (Lasix) Take 1.5 Tablets by mouth in the morning. 08/04/20 24 Active OneTouch Verio Flex System w/Device Kit 08/05/20 24 Active OneTouch Verio In Vitro Strip 08/04/20 24 Active OneTouch Delica Plus [id number] 08/05/20 24 Active metFORMIN HCl ER 500 MG Oral Tablet Extended Release 24 Hour (Glucophage XR) Take 1 Tablet by mouth in the morning. 90 Tablet 3 11/20/20 24 Active oxyCODONE HCl 5 MG Oral Tablet (Oxy IR) Take 1 Tablet by mouth every 8 hours as needed for Pain, Moderate. 30 Tablet 08/28/20 Active Furosemide 20 MG Oral Tablet (Lasix)Indicat ions:HTN, goal below 140/90,Dyslipi demia, goal LDL below 70 Take 2 Tablets by mouth in the morning. 180 Tablet 3 02/15/20 24 Discontinued metFORMIN HCl ER 500 MG Oral Tablet Extended Release 24 Hour (Glucophage XR) Take 1 Tablet by mouth daily with dinner. Discontinued oxyCODONE HCl 5 MG Oral Tablet (Oxy IR) Take 1 Tablet by mouth every 8 hours as needed for Pain, Moderate. 30 Tablet 08/09/20 Discontinued(Re fill) metFORMIN HCl ER 500 MG Oral Tablet Extended Release 24 Hour (Glucophage XR) Take 1 Tablet by mouth in the morning. 08/04/20 Discontinued(Re fill) documented as of this encounter (statuses as of 08/28/2024) Active Problems Problem Noted Date Diagnosed Date [...] as of this encounter (statuses as of 08/28/2024) Resolved Problems Problem Noted Date Diagnosed Date [...] as of this encounter (statuses as of 08/28/2024) Immunizations Name Administration Dates Next Due COVID-19 mRNA, LNP-s, No Pre serve, 2-Dose Series (Moderna) 01/04/2021,12/07/2020 COVID-19, mRNA, LNP-s, PF, B ooster, 100mcg/0.5mg (Moderna) 08/30/2021 Pneumococcal Conjugate Vacc, 13 Valent (Prevnar) 11/07/2016 Pneumococcal Conjugate Vacci ne, 20-valent ([id number]) 08/02/2022 Pneumococcal Polysaccharide PPV23 (Pneumovax) 07/30/2020,11/05/2018,07/23/2007 Seasonal [...] Current Snuff Tobacco Cessation:Ready to Q uit: No; Counseling Given: No Comments:1/2 can per day Alcohol Use Standard Drinks/Week Comments Not Currently 0 (1 standard drink = 0.6 oz pur e alcohol) PHQ-2 Answer Date Recorded PHQ Adult Total Score 0 05/16/2024 Hunger Vital Sign Answer Date Recorded Within the past 12 months, y ou worried that your food would run out before you got the money to buy more. Often true 05/16/20 24 Within the past 12 months, t he food you bought just didn't last and you didn't have money to get more. Often true 05/16/2024 Childcare Answer Date Recorded Do you feel overwhelmed with taking care of a child, family member or friend? No 05/16/2024 Does your family need help f inding childcare? (Household - for ages 0-17 years) Not on file 05/16/2024 Clothing Answer Date Recorded Have you been unable to get clothing when it was really needed? No 05/16/2024 Is your family able to get c lothes or diapers when needed? (Household - for ages 0-17 years) Not on file 05/16/2024 Personal Safety Answer Date Recorded Do you feel unsafe or have concerns for your saf ety? No 05/16/2024 Do you have concerns for you r family's safety? (Household - for ages 0-17 years) Not on file 05/16/2024 Utilities Answer Date Recorded Do you have trouble paying y our heating, water, or electric bill? No 05/16/2024 Is your family able to pay t he heat, water, or electric bill? (Household - for ages 0-17 years) Not on file 05/16/2024 Does your family have access to good internet? (Household - for ages 0-17 years) Not on file 05/16/2024 Employment Status Answer Date Recorded Are you unemployed or without regular income? No 05/16/2024 Does the household have a re lar source of income? (Household - for ages 0-17 years) Not on file 05/16/2024 Social Connections Answer Date Recorded How often do you feel lonely or isolated from th ose around you? Never 05/16/2024 Financial Resource Strain Answer Date R ecorded Do you have any trouble payi ng for your medications, or do you think you might in the future? Yes 05/16/2024 Does your family have troubl e paying for medicine? (Household - for ages 0-17 years) Not on file 05/16/2024 Transportation Needs Answer Date Record ed Do you have trouble getting a ride to medical visits or work? (Adult - for ages 18 years and over) Not on file 05/16/2024 Does your family have a hard time getting a ride to doctors visits? (Household - for ages 0-17 years) Not on file 05/16/2024 Has lack of transportation k ept you from medical appointments, meetings, work, or from getting things needed for daily living? Check all that apply. No 05/16/2024 Do you (or your family) have trouble finding or paying for a ride (transportation)? (Household - for ages 0-17 years) Not on file 05/16/2024 Housing Stability Answer Date Recorded Do you currently live in a s helter or have no steady place to sleep at night? No 05/16/2024 Do you think you are at risk of becoming homeless? (Adult - for ages 18 years and over) Not on file 05/16/2024 Does your family worry about paying for your home or becoming homeless? (Household - for ages 0-17 years) Not on file 0 05/16/2024 Are you homeless or worried that you might be in the future? No 05/16/2024 Are you (or your family) handy eless or worried that you might be in the future? (Household - for ages 0-17 years) Not on file Food Insecurity Answer Date Recorded Do you need food for this week? Yes 05/16/2024 Are you able to get enough f ood for your family? (Household - for ages 0-17 years) Not on file 05/16/2024 Does your family need food t his week? (Household - for ages 0-17 years) Not on file 05/16/2024 Do you always have enough fo od for your family? 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 Answer Date of Assessment Author No 07/15/2022 12:57 PM Marni Brown RN * Are you blind or do [...] Marni Brown RN documented in this encounter Patient Instructions * Patient Instructions* Sarah Nash, REED - 08/28/2024 9:40 AM EST Patient Instructions - Fall Prevention (This education is for all patients over 65 regardless of symptoms) Remember to take your current medications as prescribed. In order to prevent falls, you are encouraged to: Exercise Utilize assistive/adaptive devices Avoid multifocal lenses when walking Avoid hazards in home Maintain a regular toileting schedule Any questions please contact our office. Preventing Falls in the Home (This education is for all patients over 65 regardless of symptoms) As you get older, falls are more likely. That’s because your reaction time slows. Your muscles and joints may also get stiffer, making them less flexible. Illness, medications, and vision changes can also affect your balance. A fall could leave you unable to live on your own. To make your home safer, follow these tips: Floors Put nonskid pads under area rugs Remove throw rugs Replace worn floor coverings Tack carpets firmly to each step on carpeted stairs. Put nonskid strips on the edges of uncarpeted stairs Keep floors and stairs free of clutter and cords Arrange furniture so there are clear pathways Clean up any spills right away Bathrooms Install grab bars in the tub or shower Apply nonskid strips or put a nonskid rubber mat in the tub or shower Sit on a bath chair to bathe Use bathmats with nonskid backing Lighting Keep a flashlight in each room Put a nightlight along the pathway between the bedroom and the bathroom [employer] Patient Education Copyright© 2008 - 2010 [employer] except where otherwise noted Preventing Falls: Exercises to Improve Balance, Flexibility, Strength, and Staying Power (This education is for all patients over 65 regardless of symptoms) Certain types of exercises may help make you less likely to fall. Try the ones below. Or do other exercises that your healthcare provider suggests. Depending on your health, you may need to start slowly. Don’t let that stop you. Even small amounts of exercise can help you. Be sure to talk to yourhealthcare provider before starting any exercise program. Improve Balance Many types of exercise can help improve balance. Joesph chi and yoga are good examples. Here’s another one to try. You can do it anytime and almost anywhere. Stand next to a counter or solid support. Push yourself up onto your tiptoes. Hold for 5 seconds. If you start to lose your balance, hold on to the counter. Rest and repeat 5 times. Work up to holding for 20 to 30 seconds, if you can. Increase Flexibility Being more flexible makes it easier for you to move around safely. Try exercises like the seated hamstring stretch. Sit in a chair and put one foot on a stool. Straighten your leg and reach with both hands down either side of your leg. Reach as far down your leg as you can. Hold for about 20 seconds. Go back to the starting position. Then repeat 5 times. Switch legs. Build Strength “Resistance” exercises help build strength. You can do them without equipment. Or you can use weights, elastic bands, or special machines. One such exercise is called the biceps curl. You can hold a 1 pound weight or even a can of soup. Do this exercise at least 3 times a week. Strive for everyday. Sit up straight in a chair. Keep your elbow close to your body and your wrist straight. Bend your arm, moving your hand up to your shoulder. Then slowly lower your arm. Repeat 5 times. Switch to the other arm. Build Your Staying Power “Aerobic” exercises make your heart and lungs stronger so you can keep moving longer. Walking and swimming are two of the best types of exercises you can do. Using a stationary bike is great, too. Find an aerobic exercise that you enjoy. Start slowly and build up. Even 5 minutes is helpful. Aimfor a goal of 30 minutes, at least 3 times a week. You don’t have to do 30 minutes in one session. Break it up and walk a little throughout the day. More Helpful Tips Start easy. Slowly work up to doing more. Talk with your healthcare provider about the best exercises for you. Call senior centers or health clubs about exercise programs. If needed, have a family member watch you walk every so often to check your stability. Exercise with a friend. Choose an activity you both enjoy. Try exercises that you can do anytime, anywhere. Here are two examples. Have someone with you when you first try these: Practice walking by placing one foot right in front of the other. Stand up and sit down 10 times. Repeat this throughout the day. Twan Patient Education Copyright© 2008 - 2010 [employer]an except where otherwise noted. Preventing Falls: Moving Safely Using a Cane or Walker (This education is for all patients over 65 regardless of symptoms) Keep the cane away from your feet so you don’t trip. A walking aid, such as a cane or walker, can help you stay more independent and avoid falls. Remember to keep your walking aid within easy reach when you’re in a chair or in bed. And learn how to use it safely so you don’t injure yourself. Using a Cane If you have a stronger side, hold the cane on that side. Get your balance. Move the cane and your weaker leg forward. Support your weight on both the cane and your weaker side. Step with your stronger leg. Start again from step 1. If you’re using a folding walker, be sure you know how to lock it open. Check that it’s locked open before each use. Using a Walker Roll the walker (or lift it, if you’re using one without wheels) forward about 12 inches. Step forward with your weaker leg first. Use the walker to help keep your balance. Bring your other foot forward to the center of the walker. Start again from step 1. Helpful Tips Check with your healthcare provider about the right walking aid to use. Ask about a walker with a seat attached. Check the tips of your cane or walker to make sure they have nonskid covers. Move slowly from room to room. Don’t ruelas. Sit down to get dressed. Use a yenifer pack or backpack to keep your hands free. Get help for jobs that mean climbing, even on a stepstool. [employer] Patient Education Copyright© 2008 - 2010 [employer]an except where otherwise noted. Treating Urinary Incontinence in Men (This education is for all patients over 65 regardless of symptoms) You can't always control the release of urine. You may leak urine. Or you may not be able to hold your urine until you can get to a bathroom. This is called urinary incontinence. The problem can be managed. Talk to your doctor about your treatment options. Taking Medications Prescription medications may help you. They may: Help the sphincter to work better. (This is the muscle that closes to keep urine from leaking out of the bladder.) Help stop the bladder from dayana too often to push urine out. Help the bladder muscles contract with more force. Help relax the sphincter muscle and allow urine to flow more freely. Making Changes to Your Routine Certain changes in your daily routine may help. These include: Avoiding caffeine and alcohol. Using timed voiding. This is following a schedule for drinking fluids and urinating. Doing Kegel exercises daily. These exercises involve tightening the muscles in your sphincter and around your bladder to help strengthen them. Your doctor can explain how to do them. Using a Catheter A catheter is a narrow tube that is inserted through the urethra into the bladder. It drains urine.A condom catheter covers the penis. It channels urine into a collection bag. It is worn most of thetime. Intermittent catheterization means inserting a catheter to drain the bladder, then removing it. This is done on a regular schedule. Having Surgery If other options don't work, surgery may be recommended. If surgery is an option, your healthcare provider can discuss it with you and explain its risks and benefits. Healing After Prostate Surgery Surgery on the prostate gland can cause incontinence. Most often, the incontinence is only for a short time. It clears up when healing is complete. Very rarely, prostate surgery can result in permanent incontinence. ~~PATIENT INSTRUCTIONS FOR FLU SHOT~~ Possible side effects of influenza vaccine, (flu shot), are usually mild and include: 1. Soreness or redness at injection site 2. Low grade fever 3. Body aches You may use Tylenol/Acetaminophen as needed for these symptoms. LET YOUR DOCTOR KNOW IMMEDIATELY IF YOU HAVE DIFFICULTY BREATHING OR SWALLOWING, EXPERIENCE ITCHINGOF FEET OR HANDS, HAVE SWELLING OF EYES, FACE OR INSIDE OF NOSE. documented in this encounter Progress Notes * Doug Wharton MD - 08/28/2024 9:49 AM EST Images from the original note were not included. History of Present Illness Anil Peña is a 79 year old male that presents for Hospital Follow-Up (Pt here for a hospital f/u from [facility] from 08/04 for heart failure and left leg ulcer. Pt was just at the wound clinic before this appointment. ) and Medication Administration (Flu and/or Pneumo Inj) Patient here for hospital f/u afte radmission to [facility] on 07/31 and d/c on 08/04. He no showed his hosp f/u appt. This will be coded as an E&M visit. He was admitted after a fall with LE cellulitis and traumatic hematoma. Also some issues with chronic problems - mild exac HFpEF, poorly controlled DM (A1c 8.5%). He has an intake appt with [facility] tomorrow and is interested in the program. Physical Exam BP 114/68 (BP Site: Right Arm, BP Position: Sitting, BP Cuff Size: Regular) | Pulse 93 | Temp 97.8 °F (36.6 °C) (Tympanic) | SpO2 99% AAOx3 Normal affect NCAT/ Neck supple Irregularly irregular rhythm with normal rate Lungs CTABL Abd soft +BS Ext warm and well perfused No gross neuro deficits Wheelchair bound + skin tear left lateral arm + dressed wounds left lower ext + pitting edema b/l lower ext below knee, tender on the left I have reviewed most recent labs hospital labs reviewed at length including his A1c, urine protein,BNP, CMP, CBC Assessment and Plan Type 2 diabetes mellitus with diabetic polyneuropathy, without long-term current use of insulin (HCC) - 8.6% - now back on metformin. Sugar 93 this morning. Cellulitis of left lower extremity - resolved Traumatic hematoma of left lower leg, sequela - reviewed records as well as current state of things. Still going to wound care and this has helped. His swelling is also much better Chronic heart failure with preserved ejection fraction (HCC) - improved Longstanding persistent atrial fibrillation (HCC) - same Risk and functional assessment - done Need for prophylactic vaccination and inoculation against influenza - given today - INFLUENZA VAC., TRIVALENT, HD, PF, 65 AND ABOVE, 0.5 ML IM (FLUZONE HD) Wrap-Up Prn/scheduled Enrolling in [facility] tomorrow F/u here prn Time: I spent a total of 40-54 minutes (exact time 42 mins) on the date of service in preparation, delivery, and documentation of the care provided to Anil Peña excluding any time spent in the performance of separately billed services. * Sarah Nash LPN - 08/28/2024 9:40 AM EST Fall Risk Plan of Care Documentation: - Current medications reconciled Patient encouraged to: - Exercise - Provide education materials for Core strengthening - Utilize assistive/adaptive devices - Provide education materials - Avoid multifocal lenses when walking - Avoid hazards in home - Provide education materials - Maintain a regular toileting schedule Sarah Nash LPN 08/28/2024 PRE - ADMINISTRATION DOCUMENTATION Are you experiencing any cold symptoms or fever? No Have you had Guillain-[place] Syndrome (an illness that causes paralysis) within the last 6 weeks? No Have you had the flu shot in the past? YES Have you ever had a reaction to the flu shot? No Sarah Nash LPN, 08/28/2024 9:45 AM Immunization Administration Documentation Time Out Procedure Performed: Yes Patient Identified (Ask Name/Date of ): Yes Does the patient have a fever greater than 101 degrees today? No Patient allergic to latex? No VFC Stock: No Immunization(s) verified: Yes, Immunization Name: Flu, VIS Sheet(s) given: Yes Verified Side and Site: Yes Verified Shot(s) with Parent(s)/Patient: Yes documented in this encounter Plan of Treatment Upcoming Encounters Date Type Department Care Team (Late st Contact Info) Description 08/29/2024 12:30 PM EST Home Visit [facility] [address] [address] Alexsandra Scott RN [address] [place] [address] 10/10/2024 1:00 PM EST Home Visit [facility] [address] [address] Ottoniel Melo PA-C [address] [place] [address] 01/22/2025 9:00 AM EDT Office Visit Cardiology, [facility] [address] [place] [address] Purvi Morales PA-C [address] [place] [address] Health Maintenance Due Date Last Done Comments Adult Wellness Visit 2009 DXA Scan 11/04/2016 11/04/2013, 10/10, 10/22/2010, Additional history exists Diabetic Eye Exam 08/29/2024 05/22/2023, , 09/14/1998, Additional history exists Postponed from 05/22/2024 (Done Elsewhere) Diabetic Foot Exam 08/29/2024 Postponed from 1961 (Done Elsewhere) HbA1c 01/30/2025 08/01/2024, 07/10, 03/29/2023, Additional history [...] as of this encounter Visit Diagnoses Diagnosis Type 2 diabetes mellitus with diabetic polyneuropathy, without long-term current use of insulin (HCC)- Primary Cellulitis of left lower extremity Cellulitis and abscess of leg, except foot Traumatic hematoma of left lower leg, sequela Chronic heart failure with preserved ejection fraction (HCC) Longstanding persistent atrial fibrillation (HCC) Risk and functional assessment Screening for unspecified condition Need for prophylactic vaccination and inoculation against influenza documented in this encounter Advance Directives * Full Code (Latest Code Status on File) Date Activated Date Inactivated Comments 07/15/2022 2:11 PM 07/22/2022 4:34 PM This order reflects the patients wishes and were consensually agreed upon. Question Answer Comments Discussion of Advance Directives occurred with: Patient Care Teams Miller Helper Relationship Specialty Start Date End Date Pura Banerjee CRNP [address] [place] [address] PCP - General Nurse Practitioner 04/09/24 documented as of this encounter"
--- OUTSIDE RECORDS SUMMARY | 2025-01-17 22:42 | External Medical Summary | Summary of Care ---
Author Name Unknown Organization [facility] Address [address] [place] [address] Phone [phone] Care Team Providers Care Laser/Electro Optics Technician Name Role Phone Pura Banerjee Primary Care Provider Reason for Visit * Reason Onset Date Comments Appointment 09/02/2024 Encounter Details Date Type Department Care Team (Late st Contact Info) Description 09/02/2024 Telephone [facility], [place] [address] [place] [address] Elizabeth Doyle, CRISTOFER [address], [place] [id number] Appointment Allergies Active Allergy Reactions Criticality Noted [...] Vitro Strip 4 Active OneTouch Delica Plus [id number] 4 Active metFORMIN HCl ER 500 MG [...] (Prevnar) 11/07/2016 Pneumococcal Conjugate Vacci ne, 20-valent ([id number]) 08/02/2022 Pneumococcal Conjugate Vacci ne, 7 Valent [...] 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 file Not on file [...] Coordination and Integration [address] [place] [address] Karen Melgar, [facility] Printed Circuit Board Reworker [address] [facility] [place] [address] 10/10/2024 1:00 PM EST Home Visit [facility], [facility] [address] [address] Ottoniel Melo PA-C [address] [place] [address] 10/28/2024 12:30 PM EST [facility] Visit [facility] [place], [facility] [address] [address] Alexsandra Scott RN [address] [place] [address] 01/22/2025 9:00 AM EDT Office Visit Cardiology, [facility] [address] [address] Purvi Morales PAFrancie [address] [place] [address] Health Maintenance Due Date Last Done Comments [...] Advance Directives occurred with: Patient Care Teams Laser/Electro Optics Technician Relationship Specialty Start Date End Date Pura Banerjee CRNP [facility] [place] [address] PCP - General Nurse Practitioner 04/09/24 documented as of this encounter
--- OUTSIDE RECORDS SUMMARY | 2025-01-17 22:42 | External Medical Summary ---
Author Name Unknown Address Unknown Organization [facility] - [address] [place], [place] [id number] Laboratory Report Ordering Provider Test Date Status KYA PATEL 08/30/2024 14:42:00 Final Normal: <30 mg/g creatinine< br/>High: 30-300 mg/g creatinine
Very High: >300 mg/g creatinine
Nephrotic: >2200 mg/g creatinine Observation Date Value Abnormality Reference (Units ) Status Albumin, Urine 08/30/2024 14:42:00 2.70 (mg/d L) Final This testing was performed a s part of a [facility] Care-[employer] fulfillment initiative Creatinine, Urine 08/30/2024 14:42:00 185 (m g/dL) Final Albumin/Creatinine [Mass Rat io] in Urine 08/30/2024 14:42:00 15 <30 (mg/g Creat) Sharda chung Performing Location [facility] - [address] [facility] [address]
--- OUTSIDE RECORDS SUMMARY | 2025-01-17 22:42 | External Medical Summary | Summary of Care ---
Author Name Unknown Organization [facility] Address [address] [place] [address] Phone [phone] Care Team Providers Care Catering Operations Manager Name Role Phone Germanmary ellenPura Rochelle CHAPMAN Primary Care Provider Reason for Visit * Reason Onset Date Comments [facility]: Engagement 08/29/2024 Encounter Details Date Type Department Care Team (Late st Contact Info) Description 08/29/2024 Telephone [facility], [facility] [address] [facility] [place] [address] Jacy Rodriguez OSA [address], [place] [phone] [facility]: Engagement Allergies Active Allergy Reactions Criticality Noted Date Comments Other - Drugs Diarrhea,Nausea/vomiting 10/12/18 99 Dimox documented as of this encounter (statuses as of 08/29/2024) Medications finasteride (PROSCAR) 5 MG Tablet Take [...] Vitro Strip 4 Active OneTouch Delica Plus [id number] 4 Active metFORMIN HCl ER 500 MG Oral Tablet Extended Release 24 Hour (Glucophage XR) Take 1 Tablet by mouth in the morning. 90 Tablet 3 4 Active oxyCODONE HCl 5 MG Oral Tablet (Oxy IR) Take 1 Tablet by mouth every 8 hours as needed for Pain, Moderate. 30 Tablet 4 Active documented as of this encounter (statuses as of 08/29/2024) Active Problems Problem Noted Date Diagnosed Date [...] as of this encounter (statuses as of 08/29/2024) Resolved Problems Problem Noted Date Diagnosed Date [...] as of this encounter (statuses as of 08/29/2024) Immunizations Name Administration Dates Next Due COVID-19 mRNA, LNP-s, No Pre serve, 2-Dose Series (Moderna) 01/04/2021,12/07/2020 COVID-19, mRNA, LNP-s, PF, B ooster, 100mcg/0.5mg (Moderna) 08/30/2021 Pneumococcal Conjugate Vacc, 13 Valent (Prevnar) 11/07/2016 Pneumococcal Conjugate Vacci ne, 20-valent ([id number]) 08/02/2022 Pneumococcal Polysaccharide PPV23 (Pneumovax) 07/30/2020,11/05/2018,07/23/2007 Seasonal [...] Job 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 Called lmom to confirm if 09/02 at 12:50pm is a good date and time. documented in this encounter Plan of Treatment Upcoming Encounters Date Type Department Care Team (Late st Contact Info) Description 09/02/2024 12:50 PM EST Home Visit Care Coordination and Integration [address] [facility] [place] [address] Karen Melgar, Community Health Emergency Response Coordinator [address] [facility] [place] [address] 10/10/2024 1:00 PM EST [facility] Visit [facility] [address] [address] Ottoniel Melo PA-C [address] [place] [address] 10/28/2024 12:30 PM EST [facility] Visit [facility] [address] [address] Alexsandra Scott RN [address] [place] [address] 01/22/2025 9:00 AM EDT Office Visit Cardiology, [facility] [address] [address] Purvi Morales PA-C [address] [place] [address] Health Maintenance Due Date Last Done Comments [...] Advance Directives occurred with: Patient Care Teams Catering Operations Manager Relationship Specialty Start Date End Date Pura Banerjee CRNP [address] [place] [address] PCP - General Nurse Practitioner 04/09/24 documented as of this encounter
--- OUTSIDE RECORDS SUMMARY | 2025-01-17 22:42 | External Medical Summary | Summary of Care ---
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)*; Type 2 diabetes mellitus with diabetic polyneuropathy, without long-term current use of insulin (HCC); Dyslipidemia, goal LDL below 70; Chronic heart failure with preserved ejection fraction (HCC); Longstanding persistent atrial fibrillation (HCC); HTN, goal below 140/90; Traumatic open wound of left lower leg with delayed healing; Tear of skin of multiple sites of left lower extremity, subsequent encounter; Advanced care planning/counseling discussion Allergies Active Allergy Reactions Criticality Noted Date Comments Other - Drugs Diarrhea,Nausea/vomiting 10/12/18 99 Dimox documented as of this encounter (statuses as of 10/16/2024) Medications finasteride (PROSCAR) 5 MG Tablet Take [...] Vitro Strip 4 Active OneTouch Delica Plus [id number] 4 Active metFORMIN HCl ER 500 MG Oral Tablet Extended Release 24 Hour (Glucophage XR) Take 1 Tablet by mouth in the morning. 90 Tablet 3 4 Active oxyCODONE HCl 5 MG Oral Tablet (Oxy IR) Take 1 Tablet by mouth every 8 hours as needed for Pain, Moderate. 30 Tablet 4 Active documented as of this encounter (statuses as of 10/16/2024) Active Problems Problem Noted Date Diagnosed Date [...] as of this encounter (statuses as of 10/16/2024) Resolved Problems Problem Noted Date Diagnosed Date [...] as of this encounter (statuses as of 10/16/2024) Immunizations Name Administration Dates Next Due COVID-19 mRNA, LNP-s, No Pre serve, 2-Dose Series (Moderna) 01/04/2021,12/07/2020 COVID-19, mRNA, LNP-s, PF, B ooster, 100mcg/0.5mg (Moderna) 08/30/2021 Pneumococcal Conjugate Vacc, 13 Valent (Prevnar) 11/07/2016 Pneumococcal Conjugate Vacci ne, 20-valent ([id number]) 08/02/2022 Pneumococcal Polysaccharide PPV23 (Pneumovax) 07/30/2020,11/05/2018,07/23/2007 Seasonal [...] Job Start Date Job End Date 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) "RED FLAG" COPD symptoms: Cough Wheezing Medication Regimen Class D, Asthma/COPD Overlap - Inhaled Glucocorticoid-LABA Combination Inhaler Low dose prednisone Remote Patient Monitoring Vendor: No Connected RPM Device(s): Traditional Scale Traditional BP Cuff Exacerbation plan Solumedrol 40mg IM/IV Ceftriaxone 1g IM/IV Additional Comments: Breathing at baseline today Type 2 diabetes mellitus with diabetic polyneuropathy, without long-term current use of insulin (HCC) "RED FLAG" Diabetic symptoms: Confusion and Vision Changes Goal HgbA1c <8 Diabetic Complications Vascular (examples: PVD, PAD, CAD, CVA) Neurologic (example: Peripheral Neuropathy) Medication Regimen Metformin DM Secondary Prevention Moderate-High Intensity Statin Additional Comments Last A1c at goal Dyslipidemia, goal LDL below 70 Continue statin Chronic heart failure with preserved ejection fraction (HCC) Euvolemic today Lasix 60mg plus spironolactone 25mg daily Longstanding persistent atrial fibrillation (HCC) Rate controlled Continue eliquis HTN, goal below 140/90 BP at goal Traumatic open wound of left lower leg with delayed healing Dressing in place Tear of skin of multiple sites of left lower extremity, subsequent encounter Wound care 3x week, wound clinic f/u weekly Advanced care planning/counseling discussion Additional Medical Decision Making: Patient lives alone 2 story home, with 1st floor setup (Does not go upstairs) Son lives next door and assists with IADLs as needed, manages meds and meals Ambulates mostly independent in the home, has cane or walker for long distance Overall stable today Scheduled appointments in the next 60 days: Future Appointments-next 60 days Date/Time Provider Specialty Dept Phone 10/10/2024 1:00 PM Ottoniel Melo PA-C [facility] [phone] 10/28/2024 12:30 PM Alexsadnra Scott RN [facility] [phone] 02/13/2025 9:00 AM (Arrive by 8:45 AM) Purvi Morales PA-C Cardiology [phone] A total of 35 minutes was spent face to face (via video-based telemedicine if designated as a telemedicine visit) Subjective Subjective Is this a Telemedicine Visit? No, this is an Home Visit. Reason For [facility] Visit: Enrollment Current Concerns: Anil Peña is a 79 year old male seen today for a [facility] provider visit. PMH includes DM2, HFpEF, HTN, afib, BPH, anemia, 07/31-08/04/[address] - [facility] - CHF, LLE ulcer , fall, LLE cellulitis Today's concerns are: Denies any concerns today and reports feeling well overall Son present for visit and lives next door Has [facility] and HH services HH providing wound care twice weekly Going to wound clinic once weekly (Mon) Son reports that he does provide wound care in between visits, if needed Denies any pain at present Does have occasional pain, especially with wound care Using oxycodone approx once daily Denies any SOB Denies cough, chest pain Denies fever/chills Appetite fair Additional Current Outpatient Medications Medication Sig Dispense Refill [...] 1 Tablet by mouth in the morning. Pantoprazole Sodium 40 MG Oral Tablet Delayed [...] USE B-12 1000 MCG Oral Tablet daily. Rosuvastatin Calcium 20 MG Oral Tablet (Crestor) Take 1 Tablet by mouth in the morning. 90 Tablet 3 Metoprolol Succinate ER 50 MG Oral Tablet Extended Release 24 Hour (toPROL XL) Take 1 Tablet by mouth in the morning and 1 Tablet before bedtime. 180 Tablet 3 Furosemide 40 MG Oral Tablet (Lasix) Take 1.5 Tablets by mouth in the morning. [employer] Flex System w/Device Kit [employer] VerPiper In Vitro Strip TSBTouch Delica Plus [id number] metFORMIN HCl ER 500 MG Oral Tablet Extended Release 24 Hour (Glucophage XR) Take 1 Tablet by mouthin the morning. 90 Tablet 3 oxyCODONE HCl 5 MG Oral Tablet (Oxy IR) Take 1 Tablet by mouth every 8 hours as needed for Pain, Moderate. 30 Tablet 0 No current facility-administered medications for this visit. I have reviewed the following results: CBC, BMP, and B12 Lab Results Component Value Date/Time LEFT VENTRICULAR EJECTION FRACTION 60 07/18/2022 01:57 PM Objective Objective Vitals: 10/10/24 1256 Pulse: 74 SpO2: 97% Last Weights: Wt Readings from Last 3 Encounters: 04/09/24 79.4 kg (175 lb) 03/15/24 80 kg (176 lb 7 oz) 02/15/24 82.1 kg (181 lb) Last BPs: BP Readings from Last 4 Encounters: 08/28/24 114/68 04/26/24 126/78 04/09/24 134/82 03/15/24 122/62 General: alert and no distress Neuro: alert & oriented x 3 with fluent speech Heart: irregular and +murmur Lungs: lungs clear to auscultation, no wheeze, no rales, no rhonchi Abdomen: abdomen soft, non-tender, and normal bowel sounds Ext: +edema bilat LE, 2 wounds LLE covered with optifoam dressing documented in this encounter Miscellaneous Notes * Assessment & Plan Note - Ottoniel Melo PA-C - 10/16/2024 11:39 AM EST Associated Problem(s): Type 2 diabetes mellitus with diabetic polyneuropathy, without long-term current use of insulin (HCC) "RED FLAG" Diabetic symptoms: Confusion and Vision Changes Goal HgbA1c <8 Diabetic Complications Vascular (examples: PVD, PAD, CAD, CVA) Neurologic (example: Peripheral Neuropathy) Medication Regimen Metformin DM Secondary Prevention Moderate-High Intensity Statin Additional Comments Last A1c at goal * Assessment & Plan Note - Ottoniel Melo PA-C - 10/16/2024 11:39 AM EST Associated Problem(s): Dyslipidemia, goal LDL below 70 Continue statin * Assessment & Plan Note - Ottoniel Melo PA-C - 10/16/2024 11:39 AM EST Associated Problem(s): Chronic heart failure with preserved ejection fraction (HCC) Euvolemic today Lasix 60mg plus spironolactone 25mg daily * Assessment & Plan Note - Ottoniel Melo PA-C - 10/16/2024 11:39 AM EST Associated Problem(s): Longstanding persistent atrial fibrillation (HCC) Rate controlled Continue eliquis * Assessment & Plan Note - Ottoniel Melo PA-C - 10/16/2024 11:39 AM EST Associated Problem(s): HTN, goal below 140/90 BP at goal * Assessment & Plan Note - Ottoniel Melo PA-C - 10/16/2024 11:39 AM EST Associated Problem(s): Traumatic open wound of left lower leg with delayed healing Dressing in place * Assessment & Plan Note - Ottoniel Melo PA-C - 10/16/2024 11:39 AM EST Associated Problem(s): Tear of skin of multiple sites of left lower extremity Wound care 3x week, wound clinic f/u weekly * ACP (Advance Care Planning) - Ottoniel Melo PA-C - 10/16/2024 11:38 AM EST Patient-centered Communication 10/10/2024 The patient/surrogate voluntarily agreed to participate in advance care planning discussion. They were advised that this is a separate service which may incur out of pocket cost in the form of copayment and/or deductibles. Location: Home Individual(s) present for conversation: Patient and Son(s) Decisions Synopsis [employer] Most Recent Value Past ~10 years 10/16/2024 11:36 Decisions CPR decision: Patient chooses CPR 10/16/2024 Patient chooses CPR Intubation/Mechanical Ventilation decision: Patient chooses Intubation/mechanical ventilation 10/16/2024 Patient chooses Intubation/mechanical ventilation Antibiotic therapy decision: Patient chooses Antibiotic therapy 10/16/2024 Patient chooses Antibiotic therapy IV hydration decision: Patient chooses IV hydration 10/16/2024 Patient chooses IV hydration Additional Comments Synopsis SmartLink Most Recent Value Past ~10 years 10/16/2024 11:36 Additional Comments Additional Comments: unable to locate advance directive. Reviewed with patient LW/POA forms. Will review. Would elect son (Kendrick) as health care agent. 10/16/2024 unable to locate advance directive. Reviewed with patient LW/POA forms. Will review. Wouldelect son (Kendrick) as health care agent. Discerning What Matters Most to the Patient: Synopsis SmartLink Most Recent Value Past ~10 years 10/10/2024 13:01 Discerning What Matters Most to the Patient In their own words, patient's UNDERSTANDING of their illness is: "im basically housebound" 10/10/2024 "im basically housebound" Their current SYMPTOMS include: Tiredness;Shortnes of breath 10/10/2024 Tiredness;Shortnes of breath Source: Content from [employer] Aligning Care With What Matters Most: Synopsis SmartLink Most Recent Value Past ~10 years 10/16/2024 11:36 Aligning Care With What Matters Most Interventions/Choices: CPR;Intubation/mechanical ventilation;IV hydration;Antibiotic therapy 10/16/2024 CPR;Intubation/mechanical ventilation;IV hydration;Antibiotic therapy Source: Content from [employer] Program 5 minutes spent in direct [id number]-rh-dyad discussion today, Ottoniel Melo PA-C documented in this encounter Plan of Treatment Upcoming Encounters Date Type Department Care Team (Late st Contact Info) Description 10/28/2024 12:30 PM EST Home Visit [facility] [address] [address] Alexsandra Scott RN [address] [place] [address] 02/13/2025 9:00 AM EDT Office Visit Cardiology, [facility] [address] [address] Purvi Morales PA-C [address] [place] [address] Health Maintenance Due Date Last Done Comments [...] as of this encounter Visit Diagnoses Diagnosis 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)- Primary Chronic airway obstruction, not elsewhere classified Type 2 diabetes mellitus with diabetic polyneuropathy, without long-term current use of insulin (HCC) Dyslipidemia, goal LDL below 70 Other and unspecified hyperlipidemia Chronic heart failure with preserved ejection fraction (HCC) Longstanding persistent atrial fibrillation (HCC) HTN, goal below 140/90 Unspecified essential hypertension Traumatic open wound of left lower leg with delayed healing Tear of skin of multiple sites of left lower extremity, subsequent encounter Advanced care planning/counseling discussion Other specified counseling documented in this encounter Advance Directives * Full Code (Latest Code Status on File) Date Activated Date Inactivated Comments 07/15/2022 2:11 PM 07/22/2022 4:34 PM This order reflects the patients wishes and were consensually agreed upon. Question Answer Comments Discussion of Advance Directives occurred with: Patient Care Teams Medical Office Assistant Instructor Relationship Specialty Start Date End Date Pura Banerjee CRNP [address] [place] [address] PCP - General Nurse Practitioner 04/09/24 documented as of this encounter
--- OUTSIDE RECORDS SUMMARY | 2025-01-17 22:42 | External Medical Summary | Summary of Care ---
Author Name Unknown Organization [facility] Address [address] [place] [address] Phone [phone] Care Team Providers Care Supervisor Liquid Yeast Name Role Phone Pura Banerjee Primary Care Provider Reason for Visit * Reason Onset Date Comments Appointment 09/02/2024 Encounter Details Date Type Department Care Team (Late st Contact Info) Description 09/02/2024 Telephone [facility], [place] [address] [place] [address] Elizabeth Doyle, CRISTOFER [address] [place], [place] [phone] Appointment Allergies Active Allergy Reactions Criticality Noted [...] Vitro Strip 4 Active OneTouch Delica Plus [id number] 4 Active metFORMIN HCl ER 500 MG [...] (Prevnar) 11/07/2016 Pneumococcal Conjugate Vacci ne, 20-valent ([id number]) 08/02/2022 Pneumococcal Conjugate Vacci ne, 7 Valent [...] Start Date Job End Date 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 Duplicate Task Request - Please change phone number for Devon porter, son, to [phone]. documented in this encounter Plan of Treatment Upcoming Encounters Date Type Department Care Team (Late st Contact Info) Description 09/02/2024 12:50 PM EST Home Visit Care Coordination and Integration [address] [place] [address] Karen Melgar Community Health Equity Analyst [address] [place] [address] 10/10/2024 1:00 PM EST [facility] [address] [address] Ottoniel Melo PA-C [address] [place] [address] 10/28/2024 12:30 PM EST [facility] Visit [facility] [place] [address] [address] Alexsandra Scott RN [address] [place] [address] 01/22/2025 9:00 AM EDT Office Visit Cardiology, [facility] [address] [address] Purvi Morales PAMatyC [address] [place] [address] Health Maintenance Due Date Last Done Comments [...] Advance Directives occurred with: Patient Care Teams Supervisor Liquid Yeast Relationship Specialty Start Date End Date Pura Banejree CRNP [address] [place] [address] PCP - General Nurse Practitioner 04/09/24 documented as of this encounter
--- OUTSIDE RECORDS SUMMARY | 2025-01-17 22:43 | External Medical Summary | Summary of Care ---
Author Name Unknown Organization [facility] Address [address] [place] [address] Phone [phone] Care Team Providers Care Caddy Master Name Role Phone Pura Trinidad Rochelle CHAPMAN Primary Care Provider Reason for Visit * Reason Onset Date Comments Medication Refill 08/09/2024 Encounter Details Date Type Department Care Team (Late st Contact Info) Description 08/09/2024 Refill Family Practice [facility] [address] [facility] [place] [address] Lee Ann Osorio, RN [address] [place] [address] Allergies Active Allergy Reactions Criticality Noted Date Comments Other - Drugs Diarrhea,Nausea/vomiting 10/12/18 99 Dimox documented as of this encounter (statuses as of 08/09/2024) Medications Medication Sig Dispensed Refills Start Date [...] 02/15/2024 Active Additional Information Patient taking differently: 60 mgOral Daily(AM),60 mg daily per hospital instructions, Reported on 08/09/2024 Rosuvastatin Calcium 20 MG Oral Tablet (Crestor)Indicat ions:HTN, goal below 140/90,Dyslipide mohini, goal LDL below 70 Take 1 Tablet by mouth in the morning. 90 Tablet 3 02/15/2024 Active Metoprolol Succinate ER 50 MG Oral Tablet Extended Release 24 Hour (toPROL XL)Indications:H TN, goal below 140/90,Dyslipide mohini, goal LDL below 70 Take 1 Tablet by mouth in the morning and 1 Tablet before bedtime. 180 Tablet 3 05/10/2024 Active metFORMIN HCl ER 500 MG Oral Tablet Extended Release 24 Hour (Glucophage XR) Take 1 Tablet by mouth daily with dinner. Active oxyCODONE HCl 5 MG Oral Tablet (Oxy IR) Take 1 Tablet by mouth every 8 hours as needed for Pain, Moderate. 30 Tablet 08/09/2024 Active oxyCODONE HCl 5 MG Oral Tablet (Oxy IR) Take 1 Tablet by mouth every 6 hours as needed for Pain, Moderate. Do not start before July 19, 2024. 30 Tablet 07/19/2024 4 Discontinue d(Refill) documented as of this encounter (statuses as of 08/09/2024) Active Problems Problem Noted Date Diagnosed Date Food insecurity 05/20/2024 Overview: Per [facility] Protocol Hospital discharge follow-up 04/26/2024 Hypertensive heart disease [...] as of this encounter (statuses as of 08/09/2024) Resolved Problems Problem Noted Date Diagnosed Date Resolved Date Multiple skin tears 04/26/2024 08/07/20 24 Overview: history Bilateral cellulitis of lower leg 04/26/2024 08/07/2024 Overview: history Superficial foreign body of right leg without major open wound and without infection 01/12/2024 1 Overview: history COPD, group A, by GOLD 2017 classification 05/22/2023 01/12/2024 Overview: Per COPD GOLD Classification Chronic diastolic heart failure 01/10/2023 03/29/2023 Venous stasis ulcer limited to breakdown of skin without varicose veins 01/10/2023 01/12/2024 Steroid-induced hyperglycemia 01/10/2023 08/07/2024 Overview: history History of COVID-19 10/25/2022 01/12/20 24 COPD exacerbation 08/02/2022 10/24/2023 Overview: history Right heart failure, unspecified 08/02/2022 03/29/2023 Septic bursitis of elbow, right 07/15/2022 01/12/2024 Swelling of right foot 07/15/202201/11 Cellulitis of right arm 07/15/202207/11 Overview: history COVID-19 virus infection 07/15/2022 Unspecified inflammatory [...] as of this encounter (statuses as of 08/09/2024) Immunizations Name Administration Dates Next Due Influenza, Whole Virus 07/09/2000,07/26/1999 Pneumococcal Conjugate Vacci ne, 20-valent ([id number]) 08/02/2022 Pneumococcal Conjugate Vacci ne, 7 Valent 07/09/1999 Pneumococcal Polysaccharide PPV23 (Pneumovax) 07/30/2020,07/23/2007 Seasonal Influenza Vac., MDV , IM, 0.5 mL (Fluzone) 07/08/2015,07/07/2014,07/03/2013,07/06,07/23/2008,07/23/2007,09/22/2005 ,08/13/2002,09/13/2001 Seasonal Influenza Virus Vac cine, Unspecified Formulation 07/27/2021,07/10/2020,07/10/2019,07/24,07/06/2018,07/08/2015,06/13/2015 ,07/07/2014,07/03/2013,07/23/2012,06/10,07/29/2010,07/09/2010, 8,08/20/2007,07/23/2007,09/22/2005,02/2002,09/13/2001,07/09/2000,07/26/19 99 Seasonal Influenza, PF, 6 M & above, IM , (FluLaval or Fluzone) 07/10/2020,07/10/2019,07/06/2018 Seasonal Influenza, Quadriva lent Hd (Fluzone Hd) 06/16/2023,07/27/2021 Seasonal Influenza, Trivalen t, Adjuvanted, 65+ YRS, PF, (Fluad) 08/09/2018 TD - Tetanus/Diptheria (ADULT) 05/20/1999 TDAP [...] 05/16/2024 Does the household have a re gular [...] encounter Miscellaneous Notes * Telephone Encounter - Lee Ann Osorio RN - 08/09/2024 1:59 PM EDTSigned Prescriptions: Disp Refills oxyCODONE HCl 5 MG Oral Tablet (Oxy IR) 30 Tab*0 Sig: Take 1 Tablet by mouth every 8 hours as needed for Pain, Moderate.Authorizing Provider: PURA TRINIDAD-- * Telephone Encounter - Lee Ann Osorio RN - 08/09/2024 1:58 PM EDT Left message on voice mail that Rx was sent to his preferred pharmacy. Call back number given for any question. * Telephone Encounter - Pura Trinidad CRNP - 08/09/2024 12:18 PM EDT Rx sent documented in this encounter Plan of Treatment Upcoming Encounters Date Type Department Care Team (Late st Contact Info) Description 08/16/2024 11:30 AM EST Office Visit Hematology/Oncology [facility] [place] [address] [place] [address] Meghan Cristina CRNP [address] [place] [address] 11/05/2024 8:30 AM EST Office Visit Cardiology, [facility] [address] [place] [address] Ian Denny MD [address] [place] [address] Health Maintenance Due Date Last Done Comments COVID-19 Vaccine (#1) 1948 Albumin/Creatinine Ratio 1961 Diabetic Foot Exam 1961 Zoster Vaccines (1 of 2) 1962 Adult Wellness Visit 2009 DXA Scan 11/04/2016 11/04/2013, 10/10, 10/22/2010, Additional history exists HbA1c 09/28/2023 03/29/2023, 10/10, 10/24/2019, Additional history exists Diabetic Eye Exam 05/22/2024 05/22/2023, , 09/14/1998, Additional history exists Influenza Vaccine (FLU shot) (#1) 2024 06/16/2023, 07/27/2021, 07/27/2021, Additional history exists GFR 03/28/2025 03/28/2024, 05/0 06/2024, 01/29/2024, Additional history exists Depression Screening 05/16/2025 05/16/2024 DTap/Tdap Vaccines (2 - Td or Tdap) [...] Advance Directives occurred with: Patient Care Teams Caddy Master Relationship Specialty Start Date End Date Pura Trinidad CRNP [address] [place] [address] PCP - General Nurse Practitioner 04/09/24 documented as of this encounter
--- OUTSIDE RECORDS SUMMARY | 2025-01-17 22:43 | External Medical Summary | Summary of Care ---
Author Name Unknown Organization [facility] Address [address] [facility] [place] [address] Phone [phone] Care Team Providers Care Career Agent Name Role Phone Germanmary ellenYamilasa Rochelle CHAPMAN Primary Care Provider Encounter Details Date Type Department Care Team (Late st Contact Info) Description 07/31/2024 Result Scan Unspecified Department <No scans attached> Allergies Active Allergy Reactions Criticality Noted Date Comments Other - Drugs Diarrhea,Nausea/vomiting 10/12/18 99 Dimox documented as of this encounter (statuses as of 08/19/2024) Medications finasteride (PROSCAR) 5 MG Tablet Take [...] 1000 MCG Oral Tablet daily. 4 Active Furosemide 20 MG Oral Tablet (Lasix)Indicati ons:HTN, goal below 140/90,Dyslipid emia, goal LDL below 70 Take 2 Tablets by mouth in the morning. 180 Tablet 3 4 Active Additional Information Patient taking differently: 60 mgOral Daily(AM),60 mg daily per hospital instructions, Reported on 08/09/2024 Rosuvastatin Calcium 20 MG Oral Tablet (Crestor)Indica [...] before bedtime. 180 Tablet 3 4 Active documented as of this encounter (statuses as of 08/19/2024) Active Problems Problem Noted Date Diagnosed Date [...] as of this encounter (statuses as of 08/19/2024) Resolved Problems Problem Noted Date Diagnosed Date [...] as of this encounter (statuses as of 08/19/2024) Immunizations Name Administration Dates Next Due Pneumococcal Conjugate Vacci ne, 20-valent ([id number]) 08/02/2022 Pneumococcal Polysaccharide PPV23 (Pneumovax) 07/30/2020,07/23/2007 Seasonal Influenza Vac., MDV , IM, 0.5 mL (Fluzone) 07/08/2015,07/07/2014,07/03/2013,07/06,07/23/2008,07/23/2007 Seasonal Influenza Virus Vac cine, Unspecified Formulation 07/27/2021,07/10/2020,07/10/2019,07/24,07/06/2018,07/08/2015,06/13/2015 ,07/07/2014,07/03/2013,07/23/2012,06/10,07/29/2010,07/09/2010, 8,08/20/2007,07/23/2007,09/22/2005,02/2002,09/13/2001,07/09/2000,07/26/19 99 Seasonal Influenza, PF, 6 M & above, IM , (FluLaval or Fluzone) 07/10/2020,07/10/2019,07/06/2018 Seasonal Influenza, Quadriva lent Hd (Fluzone Hd) 06/16/2023,07/27/2021 Seasonal Influenza, Trivalen t, Adjuvanted, 65+ YRS, PF, (Fluad) 08/09/2018 TDAP (age 10 and older)(Boostrix) 02/07/2016 [...] Start Date Job End Date 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 Not on file Not on file [...] 12:57 PM KAILYNT Marni Nuñez RN * Because of a [...] Care Team (Late st Contact Info) Description 11/05/2024 8:30 AM EST Office Visit Cardiology, [facility] [address] [place] [id number] Ian Denny MD [address] [place] [address] Health Maintenance Due Date Last Done Comments [...] 07/27/2021, Additional history exists GFR 03/28/2025 03/28/2024, 05/06/2024, [...] Procedure Name Priority Date/Time Associated Diagnosis Comments EKG SCANNED RESULT 07/31/2024 RADIOLOGY SCANNED RESULT 07/31/2024 RADIOLOGY SCANNED RESULT 07/31/2024 documented in this encounter Results * RADIOLOGY SCANNED RESULT (07/31/2024) 07/31/2024 us No Physician Data Unknown DIAGNOSTIC RADIOLOGY S ERVICES Final Result * RADIOLOGY SCANNED RESULT (07/31/2024) 07/31/2024 us No Physician Data Unknown DIAGNOSTIC RADIOLOGY S ERVICES Final Result * EKG SCANNED RESULT (07/31/2024) 07/31/2024 us No Physician Data Unknown EKG Final Result documented in this encounter Advance Directives * Full Code (Latest Code Status on File) Date Activated Date Inactivated Comments 07/15/2022 2:11 PM 07/22/2022 4:34 PM This order reflects the patients wishes and were consensually agreed upon. Question Answer Comments Discussion of Advance Directives occurred with: Patient Care Teams Career Agent Relationship Specialty Start Date End Date Pura Banerjee CRNP [address] [place] [address] PCP - General Nurse Practitioner 04/09/24 documented as of this encounter
--- OUTSIDE RECORDS SUMMARY | 2025-01-17 22:43 | External Medical Summary | Summary of Care ---
Author Name Unknown Organization [facility] Address [address] [facility] [place] [address] Phone [phone] Care Team Providers Care Speech Pathologist Name Role Phone Germanmary ellen Pura CHAPMAN Primary Care Provider Reason for Visit * Reason Onset Date Comments [facility]: Screening 08/23/2024 Encounter Details Date Type Department Care Team (Late st Contact Info) Description 08/23/2024 Telephone [facility], [facility] [address] [facility] [place] [address] Janis Ramirez, REED [address] [place] [address] [facility]: Screening Allergies Active Allergy Reactions Criticality Noted Date Comments Other - Drugs Diarrhea,Nausea/vomiting 10/12/18 99 Dimox documented as of this encounter (statuses as of 08/23/2024) Medications finasteride (PROSCAR) 5 MG Tablet Take [...] before bedtime. 180 Tablet 3 4 Active metFORMIN HCl ER 500 MG Oral Tablet Extended Release 24 Hour (Glucophage XR) Take 1 Tablet by mouth daily with dinner. Active oxyCODONE HCl 5 MG Oral Tablet (Oxy IR) Take 1 Tablet by mouth every 8 hours as needed for Pain, Moderate. 30 Tablet 4 Active documented as of this encounter (statuses as of 08/23/2024) Active Problems Problem Noted Date Diagnosed Date Arthralgia of right elbow 08/23/2024 Aspiration into airway 08/23/2024 Hemoptysis 08/23/2024 Avulsion of skin of left lower leg 08/23/2024 Bilateral edema of lower extremity 08/23/2024 Cellulitis 08/23/2024 Chest pain 08/23/2024 Chronic anemia 08/23/2024 Bilateral cataracts 08/23/2024 Elevated lactic acid level 08/23/2024 History of tooth extraction 08/23/2024 Leukocytosis 08/23/2024 Neuropathy 08/23/2024 PAC (premature atrial contraction) 08/23/2024 Recurrent [...] as of this encounter (statuses as of 08/23/2024) Resolved Problems Problem Noted Date Diagnosed Date [...] as of this encounter (statuses as of 08/23/2024) Immunizations Name Administration Dates Next Due Pneumococcal Conjugate Vacci ne, 20-valent ([id number]) 08/02/2022 Pneumococcal Polysaccharide PPV23 (Pneumovax) 07/30/2020,07/23/2007 Seasonal [...] Start Date Job End Date 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 A review of this chart was completed and: nAil meets criteria for [facility]. Jump to Initiation Referring care team was notified via : Epic communication documented in this encounter Plan of Treatment Upcoming Encounters Date Type Department Care Team (Late st Contact Info) Description 08/28/2024 11:00 AM EST Office Visit Family Practice [facility] [address] [place] [address] Doug Wharton MD [address] [place] [address] 08/29/2024 12:30 PM EST Home Visit [facility], [facility] [address] [place] [address] Alexsandra Scott RN [address] [place] [address] 10/10/2024 1:00 PM EST Home Visit [facility], [facility] [address] [place] [address] Ottoniel Melo PA-C [address] [place] [address] 01/22/2025 9:00 AM EDT Office Visit Cardiology, [facility] [address] [place] [address] Purvi Morales PA-C [address] [place] [address] Health Maintenance Due Date Last Done Comments [...] Advance Directives occurred with: Patient Care Teams Speech Pathologist Relationship Specialty Start Date End Date Pura Banerjee CRNP [address] [place] [address] PCP - General Nurse Practitioner 04/09/24 documented as of this encounter
--- OUTSIDE RECORDS SUMMARY | 2025-01-17 22:43 | External Medical Summary | Summary of Care ---
Author Name Unknown Organization [facility] Address [address] [facility] [address] Phone [phone] Care Team Providers Care Cancer Program Coordinator Name Role Phone Germanmary ellenPura Rochelle CHAPMAN Primary Care Provider Reason for Visit * Reason Onset Date Comments No Show 08/16/2024 Encounter Details Date Type Department Care Team (Late st Contact Info) Description 08/16/2024 Telephone Hematology/Oncology [facility] [place] [address] [facility] [address] Meghan Cristina CRNP [address] [place] [address] No Show Allergies Active Allergy Reactions Criticality Noted Date Comments Other - Drugs Diarrhea,Nausea/vomiting 10/12/18 99 Dimox documented as of this encounter (statuses as of 08/16/2024) Medications finasteride (PROSCAR) 5 MG Tablet Take [...] as of this encounter (statuses as of 08/16/2024) Active Problems Problem Noted Date Diagnosed Date Food insecurity 05/20/2024 Overview: Per [facility] Protocol Hospital discharge follow-up 04/26/2024 [...] as of this encounter (statuses as of 08/16/2024) Resolved Problems Problem Noted Date Diagnosed Date [...] as of this encounter (statuses as of 08/16/2024) Immunizations Name Administration Dates Next Due Pneumococcal Conjugate Vacci ne, 20-valent ([id number]) 08/02/2022 Pneumococcal Polysaccharide PPV23 (Pneumovax) 07/30/2020,07/23/2007 Seasonal [...] Job Start Date 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 Answer Date of Assessment Author No 07/15/2022 12:57 PM EDT Marni Nuñez, RN * Are you blind or do [...] encounter Miscellaneous Notes * Telephone Encounter - Vani Rodriguez MED ASSIST - 08/16/2024 1:01 PM EST Pt did not show for his appointment today 08/16/24 with Meghan. Please call to reschedule. documented in this encounter Plan of Treatment Upcoming Encounters Date Type Department Care Team (Late st Contact Info) Description 11/05/2024 8:30 AM EST Office Visit Cardiology, [facility] [address] [place] [address] Ian Denny MD [address] [place] [address] Health Maintenance Due Date Last Done Comments [...] Advance Directives occurred with: Patient Care Teams Cancer Program Coordinator Relationship Specialty Start Date End Date Pura Banerjee CRNP [address] [place] [address] PCP - General Nurse Practitioner 04/09/24 documented as of this encounter
--- OUTSIDE RECORDS SUMMARY | 2025-01-17 22:43 | External Medical Summary | Summary of Care ---
Author Name Unknown Organization [facility] Address [address] [facility] [place] [address] Phone [phone] Care Team Providers Care Field Court Researcher Name Role Phone Pura Banerjee Primary Care Provider Encounter Details Date Type Department Care Team (Late st Contact Info) Description 08/19/2024 Orders Only Family Practice [facility] [address] [place] [address] Pura Banerjee CRNP [address] [place] [address] Allergies Active Allergy Reactions Criticality Noted Date [...] Diagnosed Date Food insecurity 05/20/2024 Overview: Per [facility] Protocol Hospital discharge follow-up 04/26/2024 Hypertensive [...] Next Due Pneumococcal Conjugate Vacci ne, 20-valent ([id number]) 08/02/2022 Pneumococcal Polysaccharide PPV23 (Pneumovax) 07/30/2020,07/23/2007 Seasonal [...] Job Start Date Job End 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 (5 years old or older) Answer Entry Date Author No 07/15/2022 12:57 PM Marni Brown RN documented in this encounter Plan of Treatment Upcoming Encounters Date Type Department Care Team (Late st Contact Info) Description 11/05/2024 8:30 AM EST Office Visit Cardiology, [facility] [address] [place] [address] Ian Denny MD [address] [place] [address] Health Maintenance Due Date Last Done Comments [...] Priority Date/Time Associated Diagnosis Comments CHEMISTRY-OUTSIDE Routine 07/31/2024 documented in this encounter Results * (ABNORMAL) CHEMISTRY-OUTSIDE (07/31/2024) Not all results display below - see scan for full detail OUTSIDE LAB (SEE SCANNED REPORT) Comment:SCAN INCL: INPT LABS : [facility], CREATININE OUTSIDE L AB (SEE SCANNED REPORT) EGFR OUTSIDE LA B (SEE SCANNED REPORT) POTASSIUM OUTSIDE LA B (SEE SCANNED REPORT) GLUCOSE OUTSIDE LA B (SEE SCANNED REPORT) HOURS FASTING OUTSID E LAB (SEE SCANNED REPORT) TRIGLYCERIDES-OUT SIDE LAB OUTSIDE LAB (SEE SCANNED REPORT) CHOLESTEROL-OUTSI DE LAB OUTSIDE LAB (SEE SCANNED REPORT) HDL-OUTSIDE LAB OUTS BELLE LAB (SEE SCANNED REPORT) CHOL/HDL RATIO-OUTSIDE LAB OUTSIDE LA B (SEE SCANNED REPORT) LDL (CALCULATED)-OUTS BELLE LAB OUTSIDE LAB (SEE SCANNED REPORT) LDL (DIRECT MEASURE)-OUTSIDE LAB OUTSIDE LAB (SEE SCANNED REPORT) HEMOGLOBIN, [id number] LAB OUTSIDE LAB (SEE SCANNED REPORT) PHOSPHORUS-OUTSID E LAB OUTSIDE LAB (SEE SCANNED REPORT) PTH-OUTSIDE LAB OUTS BELLE LAB (SEE SCANNED REPORT) MICROALBUMIN RATIO-OUTSIDE LAB OUTSIDE LA B (SEE SCANNED REPORT) PROTEIN, UA-OUTSIDE LAB OUTSIDE LAB (SEE SCANNED REPORT) HGB 11.3(A) 14.0 - 18.0 G/DL OUTSIDE LAB (SEE SCANNED REPORT) 07/31/2024 us History Per Patient LABORATORY Final Result OUTSIDE LAB (SEE SCANNED REPORT) documented in this encounter Advance Directives * Full Code (Latest Code Status on File) Date Activated Date Inactivated Comments 07/15/2022 2:11 PM 07/22/2022 4:34 PM This order reflects the patients wishes and were consensually agreed upon. Question Answer Comments Discussion of Advance Directives occurred with: Patient Care Teams Field Court Researcher Relationship Specialty Start Date End Date Pura Banerjee CRNP [address] [place] [address] PCP - General Nurse Practitioner 04/09/24 documented as of this encounter
--- OUTSIDE RECORDS SUMMARY | 2025-01-17 22:43 | External Medical Summary | Summary of Care ---
Author Name Unknown Organization [facility] Address [address] [place] [address] Phone [phone] Care Team Providers Care Clinical Care Manager Name Role Phone Pura Banerjee Rochelle CHAPMAN Primary Care Provider Reason for Visit * Reason Onset Date Comments Medication Refill 08/09/2024 Encounter Details Date Type Department Care Team (Late st Contact Info) Description 08/09/2024 Refill Family Practice [facility] [address] [facility] [place] [address] Lee Ann Osorio, RN [address] [place] [address] Allergies Active Allergy Reactions Criticality [...] 08/09/2024) Immunizations Name Administration Dates Next Due Pneumococcal Conjugate Vacci ne, 20-valent ([id number]) 08/02/2022 Pneumococcal Polysaccharide PPV23 (Pneumovax) 07/30/2020,07/23/2007 Seasonal [...] encounter Miscellaneous Notes * Telephone Encounter - Pura Banerjee CRNP - 08/09/2024 12:18 PM EDT Rx sent documented in this encounter Plan of Treatment Upcoming Encounters Date Type Department Care Team (Late st Contact Info) Description 08/16/2024 11:30 AM EST Office Visit Hematology/Oncology [facility] [address] [facility] [place] [address] Meghan Cristina CRNP [address] [place] [address] 11/05/2024 8:30 AM EST Office Visit Cardiology, [facility] [address] [facility] [place] [address] Ian Denny MD [address] [facility] [place] [address] Health Maintenance Due Date Last Done Comments [...] Advance Directives occurred with: Patient Care Teams Clinical Care Manager Relationship Specialty Start Date End Date Pura Banerjee CRNP [address] [place] [address] PCP - General Nurse Practitioner 04/09/24 documented as of this encounter
--- OUTSIDE RECORDS SUMMARY | 2025-01-17 22:43 | External Medical Summary | Summary of Care ---
Author Name Unknown Organization [facility] Address [address] [place] [address] Phone [phone] Care Team Providers Care Homeland Security Program Specialist Name Role Phone Pura Banerjee Primary Care Provider Reason for Referral * Evaluate & Treat - Unlimited Visits (Within 10 days (routine)) - Authorized Specialty Diagnoses / Procedures Referred By Celina isaacs Referred To Contact Hematology/Oncology / Hematology Oncology Diagnoses Elevated white blood cell count, unspecified Harjit Bunch CRNP [address] [place] [address] Referral ID Status Reason Start Date Expiration Date Visits Requested Visits Authorized [id number] Authorized Specialty Services Required 02/12/2025 999 999 Question Answer Referral Priority Within 10 days (routine) Where should this appointment be scheduled? Luis Reason for Referral Abnormal CBC Comments Notes scanned into epic 08/05/24 crb Encounter Details Date Type Department Care Team (Late st Contact Info) Description 08/05/2024 Orders Only Access Center, [facility] [address] [facility] *DO NOT REMOVE THIS DEPARTMENT* [place] [address] Request, External Referral Elevated white blood cell count, unspecified* Allergies Active Allergy Reactions Criticality Noted Date Comments Other - Drugs Diarrhea,Nausea/vomiting 10/12/18 99 Dimox documented as of this encounter (statuses as of 08/05/2024) Medications Medication Sig Dispensed Refills Start Date [...] differently: 20 mgOral Daily(AM), Reported on 03/15/2024 Rosuvastatin Calcium 20 MG Oral Tablet (Crestor)Indicatio [...] before bedtime. 180 Tablet 3 05/10/2024 Active oxyCODONE HCl 5 MG Oral Tablet (Oxy IR) Take 1 Tablet by mouth every 6 hours as needed for Pain, Moderate. Do not start before July 19, 2024. 30 Tablet 07/19/2024 Active documented as of this encounter (statuses as of 08/05/2024) Active Problems Problem Noted Date Diagnosed Date Food insecurity 05/20/2024 Overview: Per [facility] Protocol Multiple skin tears 04/26/2024 Bilateral cellulitis of [...] as of this encounter (statuses as of 08/05/2024) Resolved Problems Problem Noted Date Diagnosed Date [...] as of this encounter (statuses as of 08/05/2024) Immunizations Name Administration Dates Next Due Pneumococcal Conjugate Vacci ne, 20-valent ([id number]) 08/02/2022 Pneumococcal Polysaccharide PPV23 (Pneumovax) 07/30/2020,07/23/2007 Seasonal Influenza Vac., MDV , IM, 0.5 mL (Fluzone) 07/08/2015,07/07/2014,07/03/2013,07/06,07/23/2008,07/23/2007 Seasonal Influenza Virus Vac cine, Unspecified Formulation 07/27/2021,07/10/2020,07/10/2019,07/24,07/06/2018,07/08/2015,06/13/2015 ,07/07/2014,07/03/2013,07/23/2012,06/10,07/29/2010,07/09/2010,,08/20/2007,07/23/2007,09/22/2005,02/2002,09/13/2001,07/09/2000,07/26/19 99 Seasonal Influenza, PF, 6 M & [...] No 05/16/2024 Does the household have a [facility] source of income? (Household - for ages [...] Care Team (Late st Contact Info) Description 08/08/2024 2:20 PM EDT Office Visit Family Practice [facility] [address] [place] [address] Doug Wharton MD [address] [place] [address] 08/16/2024 11:30 AM EST Office Visit Hematology/Oncology [facility] [address] [place] [phone] Meghan Cristina CRNP [address] [place] [address] 11/05/2024 8:30 AM EST Office Visit Cardiology, [facility] [address] [place] [address] Ian Denny MD [address] [place] [address] Scheduled Referrals Name Type Priority Associated Diagnoses Orde r Schedule HEMATOLOGY/ONCOLOGY REFERRAL OP Referral Within 10 days (routine) Elevated white blood cell count, unspecified Ordered: 08/05/2024 Health Maintenance Due Date Last Done Comments [...] as of this encounter Visit Diagnoses Diagnosis Elevated white blood cell count, unspecified- Primary documented in this encounter Advance Directives * Full Code (Latest Code Status on File) Date Activated Date Inactivated Comments 07/15/2022 2:11 PM 07/22/2022 4:34 PM This order reflects the patients wishes and were consensually agreed upon. Question Answer Comments Discussion of Advance Directives occurred with: Patient Care Teams Homeland Security Program Specialist Relationship Specialty Start Date End Date Pura Banerjee CRNP [facility] [place] [id number] PCP - General Nurse Practitioner 04/09/24 documented as of this encounter
--- OUTSIDE RECORDS SUMMARY | 2025-01-17 22:43 | External Medical Summary | Summary of Care ---
Author Name Unknown Organization [facility] Address [address] [place] [address] Phone [phone] Care Team Providers Care Clothes Presser Name Role Phone Pura Banerjee Primary Care Provider Reason for Visit * Reason Onset Date Comments [facility]: Enrollment 08/23/2024 Encounter Details Date Type Department Care Team (Late st Contact Info) Description 08/23/2024 Telephone [facility] [place] [address] [place], [place] [id number] Elizabeth Doyle, [facility]ER [address], [place] [phone] [facility]: Enrollment Allergies Active Allergy Reactions Criticality Noted Date [...] Next Due Pneumococcal Conjugate Vacci ne, 20-valent ([id number]) 08/02/2022 Pneumococcal Polysaccharide PPV23 (Pneumovax) 07/30/2020,07/23/2007 Seasonal [...] Start Date Job End Date 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 [address] [place] [address] Doug Wharton MD [address] [place] [address] 08/29/2024 12:30 PM EST Home Visit [facility], [facility] [address] [place] [address] Alexsandra Scott RN [address] [place] [address] 10/10/2024 1:00 PM EST [facility] Visit [facility], [facility] [address] [place] [address] Ottoniel Melo PA-C [address] [place] [address] 01/22/2025 9:00 AM EDT Office Visit Cardiology, [facility] [address] [place] [address] Purvi Morales PA-C [address] [place] [address] Health Maintenance Due Date Last Done Comments [...] Advance Directives occurred with: Patient Care Teams Clothes Presser Relationship Specialty Start Date End Date Pura Banejree CRNP [address] [place] [address] PCP - General Nurse Practitioner 04/09/24 documented as of this encounter
--- OUTSIDE RECORDS SUMMARY | 2025-01-17 22:43 | External Medical Summary | Summary of Care ---
Author Name Unknown Organization [facility] Address [address] [facility] [place] [address] Phone [phone] Care Team Providers Care Conference Coordinator Name Role Phone Germanmary ellenPura Rochelle CHAPMAN Primary Care Provider Encounter Details Date Type Department Care Team (Late st Contact Info) Description 08/07/2024 Population Health External Data Unspecified Department Allergies Active Allergy Reactions Criticality Noted Date Comments Other - Drugs Diarrhea,Nausea/vomiting 10/12/18 99 Dimox documented as of this encounter (statuses as of 08/07/2024) Medications Medication Sig Dispensed Refills Start Date [...] as of this encounter (statuses as of 08/07/2024) Active Problems Problem Noted Date Diagnosed Date Food insecurity 05/20/2024 Overview: Per [facility] Protocol Hospital discharge follow-up 04/26/2024 [...] as of this encounter (statuses as of 08/07/2024) Resolved Problems Problem Noted Date Diagnosed Date [...] Overview: history History of COVID-19 10/25/2022 01/12/20 COPD [...] as of this encounter (statuses as of 08/07/2024) Immunizations Name Administration Dates Next Due Pneumococcal Conjugate Vacci ne, 20-valent ([id number]) 08/02/2022 Pneumococcal Polysaccharide PPV23 (Pneumovax) 07/30/2020,07/23/2007 Seasonal [...] No 05/16/2024 Does the household have a rustlar source of income? (Household - for ages [...] 2:20 PM EDT Office Visit Family Practice [facility] [address] [place] [address] Doug Wharton MD [address] [place] [address] 08/16/2024 11:30 AM EST Office Visit Hematology/Oncology [facility] [place] [address] [facility] [place] [phone] Meghan Cristina CRNP [address] [place] [address] 11/05/2024 8:30 AM EST Office Visit Cardiology, [facility] [address] [place] [address] Ian Denny MD [address] [place] [address] Health Maintenance Due Date Last Done Comments [...] Advance Directives occurred with: Patient Care Teams Conference Coordinator Relationship Specialty Start Date End Date Pura Banerjee CRNP [address] [place] [address] PCP - General Nurse Practitioner 04/09/24 documented as of this encounter
[2025-01-18] MEDS: PIPERACILLIN/TAZOBACTAM 4.5 GM/100 ML BAG IV SCH (03:24)
[2025-01-18] MEDS: VANCOMYCIN HCL 1,500 MG in SODIUM CHLORIDE 0.9% 500 ML IV SCH (03:24)
[2025-01-18] MEDS: oxyCODONE HCL IR 5 MG TAB (IMMEDIATE RELEASE) PO PRN (07:48)
[2025-01-18] MEDS: predniSONE 5 MG TAB PO SCH (07:49)
[2025-01-18] MEDS: FLUTICASONE/VILANTEROL 200/25MCG 14 PUFFS/INHALER INH SCH (07:49)
[2025-01-18] MEDS: CHOLECALCIFEROL 25 MCG (1000 UNITS) TAB PO SCH (07:50)
[2025-01-18] MEDS: TAMSULOSIN HCL 0.4 MG CAP PO SCH (07:50)
[2025-01-18] MEDS: CYANOCOBALAMIN (B-12) 500 MCG TABLET PO SCH (07:50)
[2025-01-18] MEDS: PANTOprazole 40 MG TAB PO SCH (07:51)
[2025-01-18] MEDS: FINASTERIDE 5 MG TAB PO SCH (07:51)
[2025-01-18] MEDS: ROSUVASTATIN CALCIUM 20 MG TAB PO SCH (07:51)
--- NOTE | 2025-01-18 08:16 | Hospitalist Progress Note ---
Date of Service January 18, 2025 Assessment & Plan (1) Cellulitis of left leg: Plan: Patient is 79-year-old male with PMH HTN, persistent atrial fibrillation anticoagulated on Eliquis, paroxysmal SVT, DM II, chronic anemia, rheumatoid arthritis, leg wounds presented to ER with c/o left leg redness and increased pain x 2 days. On 01/15/25 had presented to wound clinic with new hematoma to left leg and had area I&D. 01/15/25 Wound culture was without growth. In ER afebrile, P: 103, R: 20, BP 105/57, 97% on room air WBC: 12.4, lactate: 2.3, Procalcitonin: 0.1 Tib-fib x-ray: No fracture or osteomyelitis noted Blood cultures pending In ER given Rocephin, vancomycin, gentle IVF ordered Give bolus IVF Zosyn, vancomycin Per chart review pt with history pseudomonas on prior wound cultures Trend lactate Tylenol, oxycodone prn pain. Has buprenorphine patch prescribed but hasn't started using it yet. CT LE obtained to assess for underlying abscess - 1. Left lower leg wound with cellulitis. No fluid collection to suggest abscess. 2. No evidence for o steomyelitis within the left tibia or fibula. Wound nurse consult while inpatient Fall precautions CBC, BMP in am #Chronic heart failure with preserved ejection fraction (HFpEF): CXR: Stable moderate cardiomegaly with mild pulmonary vascular congestion Will hold home oral lasix, spironolactone and reassess volume status tomorrow 02/02/2024 echo: EF: 55-60%, mild concentric LVH, moderate aortic valve sclerosis without significant stenosis, mild mitral regurgitation #Atrial fibrillation: History persistent A-Fib Paroxysmal SVT Borderline tachybrady syndrome In ER HR low 100's. Denies CP, SOB, palpitations Monitor on telemetry Continue metoprolol succinate, Eliquis #Diabetes mellitus, type II: A1c: 8.5 on 08/01/24 Hold home metformin Novolog sliding scale per protocol Diabetic diet current A1c 6.5% #COPD (chronic obstructive pulmonary disease): No signs acute exacerbation Continue home inhalers #HLD (hyperlipidemia): Continue rosuvastatin #Rheumatoid arthritis: On Chronic prednisone 5mg daily Continue prednisone Chronic anemia: History B12 deficiency Hb. (baseline appears in 11's) Continue B12 supplement #BPH (benign prostatic hyperplasia): Continue finasteride, tamsulosin DVT Prophylaxis - Eliquis Admit telemetry Full Code as per discussion with pt Admission and Anticipated Discharge Date Admission Date: January 17, 2025 Subjective Pt seen in follow up of cellulitis, follows with wound care - referred by wound care to the ER currently on vanco zosyn on admission, blood cultx pending Lying in bed in NAD, says pain in his leg is improved no fever, chills, chest pain, shortness of breath, no abd. pain Review of Systems Review of Systems: All systems reviewed & are unremarkable except as noted in Subjective Physical Exam Physical Exam: General: no acute distress, WDWN elderly male Head: normocephalic, atraumatic Eyes: conjunctiva non-injected, anicteric ENT: normal inspection external ears, nose, mucous membranes moist Neck: supple Lungs: no respiratory distress, +slight rales at bases bilaterally, no wheezing/rhonchi CV: irregularly irregular, mildly tachycardic Abd: normal BS, soft, non-tender Ext: RLE: scars noted. +diffuse tender to palpation (pt reports chronic). LLE: +multiple scars. distal leg wound and foot wound appears to be healing well without surrounding erythema and no noted discharge. Left lateral leg wound with skin tear and noted incision site with surrounding erythema of entire lower leg extending to knee and just proximal to medial aspect of knee and lower femur region. Area very tender to palpation and is warm Neuro: A&O x 3, no focal deficits noted, normal affect Skin: as above in extremities. +scattered ecchymosis to extremities. warm, dry Results & Data Results & Data Vital Signs (Past 12 Hours) Vital Signs Temp Pulse Pulse Resp BP BP Pulse Ox 01/18/25 07:24 120 H 01/18/25 02:08 36.7 C 102 H 18 106/65 97 01/17/25 22:38 103 H 01/17/25 22:12 36.7 C 107 H 18 116/69 96 O2 Del Method 01/18/25 07:24 01/18/25 02:08 Room Air 01/17/25 22:38 01/17/25 22:12 Room Air Laboratory Results 01/17/25 01/17/25 01/17/25 Range/Units 20:22 19:21 14:38 WBC (4.8-10.8) K/ul RBC (4.70-6.10) M/uL Hgb (14.0-18.0) g/dl Hct (42.0-52.0) % MCV (80.0-100.0) fL MCH (25.0-34.0) pg MCHC (32.0-36.0) g/dL RDW Std Deviation (36.4-46.3) fL RDW Coeff of Roxanna (11.5-14.5) % Plt Count (130-400) K/uL MPV (9.4-12.4) fL Immature Gran % (Auto) % Neut % (Auto) % Lymph % (Auto) % [place] % (Auto) % Eos % (Auto) % Baso % (Auto) % Neut # (Auto) (1.40-6.50) K/uL Lymph # (Auto) (1.20-3.40) K/uL [place] # (Auto) (0.11-0.59) K/uL Eos # (Auto) (0.00-0.50) K/uL Baso # (Auto) (0.00-0.20) K/uL Immature Gran # (Auto) (0.01-0.20) K/uL Sodium (136-145) mmol/L Potassium (3.5-5.1) mmol/L Chloride (98-107) mmol/L Carbon Dioxide (21-32) mmol/L Anion Gap (3-11) BUN (6-23) mg/dl Creatinine (0.6-1.4) mg/dl Est Cr Clr Drug Dosing eGFR BUN/Creatinine Ratio (10-20) Glucose (70-99(Fasting)) mg/dl POC Glucose 139 H (70-99) mg/dl Lactate 1.9 2.6 H* (0.4-2.0) mmol/L Calcium (8.6-10.3) mg/dl Procalcitonin (0-0.5) ng/ml 01/17/25 Range/Units 12:16 WBC 12.41 H (4.8-10.8) K/ul RBC 3.28 L (4.70-6.10) M/uL Hgb 11.0 L (14.0-18.0) g/dl Hct 33.3 L (42.0-52.0) % MCV 101.5 H (80.0-100.0) fL MCH 33.5 (25.0-34.0) pg MCHC 33.0 (32.0-36.0) g/dL RDW Std Deviation 60.6 H (36.4-46.3) fL RDW Coeff of Roxanna 16.3 H (11.5-14.5) % Plt Count 177 (130-400) K/uL MPV 11.6 (9.4-12.4) fL Immature Gran % (Auto) 1.0 % Neut % (Auto) 71.8 % Lymph % (Auto) 12.7 % [place] % (Auto) 13.7 % Eos % (Auto) 0.4 % Baso % (Auto) 0.4 % Neut # (Auto) 8.91 H (1.40-6.50) K/uL Lymph # (Auto) 1.58 (1.20-3.40) K/uL [place] # (Auto) 1.70 H (0.11-0.59) K/uL Eos # (Auto) 0.05 (0.00-0.50) K/uL Baso # (Auto) 0.05 (0.00-0.20) K/uL Immature Gran # (Auto) 0.12 (0.01-0.20) K/uL Sodium 134 L (136-145) mmol/L Potassium 3.7 (3.5-5.1) mmol/L Chloride 97 L (98-107) mmol/L Carbon Dioxide 30 (21-32) mmol/L Anion Gap 7 (3-11) BUN 22 (6-23) mg/dl Creatinine 1.10 (0.6-1.4) mg/dl Est Cr Clr Drug Dosing Not Reportable eGFR 67.44 BUN/Creatinine Ratio 20.0 (10-20) Glucose 127 H (70-99(Fasting)) mg/dl POC Glucose (70-99) mg/dl Lactate 2.3 H* (0.4-2.0) mmol/L Calcium 9.4 (8.6-10.3) mg/dl Procalcitonin 0.11 (0-0.5) ng/ml Medications Administered Current Inpatient Medications Acetaminophen (Acetaminophen 325 Mg Tab) 650 mg PO Q4H PRN PRN Reason: Pain or Fever Stop: 02/16/25 17:05 Last Admin: 01/17/25 20:03 Dose: 650 mg Apixaban (Apixaban 5 Mg Tablet) 5 mg PO BID [facility] Stop: 02/16/25 20:59 Last Admin: 01/18/25 07:49 Dose: 5 mg Cyanocobalamin (Cyanocobalamin (B-12) 500 Mcg Tablet) 1,000 mcg PO DAILY STEPHEN Stop: 02/17/25 08:59 Last Admin: 01/18/25 07:50 Dose: 1,000 mcg Dextrose (Dextrose 50% 50 Ml Syringe) 25 - 50 ml IV UD PRN; Protocol PRN Reason: Hypoglycemia Protocol Stop: 02/16/25 17:05 Finasteride (Finasteride 5 Mg Tab) 5 mg PO DAILY [facility] Stop: 02/17/25 08:59 Last Admin: 01/18/25 07:51 Dose: 5 mg Fluticasone/Vilanterol (Fluticasone/Vilanterol 200/25mcg 14 Puffs/Inhaler) 1 puffs INH DAILY STEPHEN Stop: 02/17/25 08:59 Last Admin: 01/18/25 07:49 Dose: 1 puffs Gabapentin (Gabapentin 300 Mg Cap) 300 mg PO BID STEPHEN Stop: 02/16/25 20:59 Last Admin: 01/18/25 07:51 Dose: 300 mg Glucagon (Glucagon For Inj 1 Mg Vial) 1 mg SQ UD PRN; Protocol PRN Reason: Hypoglycemia Protocol Stop: 02/16/25 17:05 Glucose (Glucose 40% Gel 15 Gm Tube) 15 - 30 gm PO UD PRN; Protocol PRN Reason: Hypoglycemia Protocol Stop: 02/16/25 17:05 Glucose (Glucose 10 Tab/Tube) 4 - 8 tab PO UD PRN; Protocol PRN Reason: Hypoglycemia Protocol Stop: 02/16/25 17:05 Piperacillin Sod/Tazobactam Sod (Zosyn) 4.5 gm in 100 mls @ 25 mls/hr IV Q8H STEPHEN; Protocol Stop: 01/25/25 03:59 Last Infusion: 01/18/25 07:38 Dose: Infused Vancomycin HCl 1,500 mg/ (Sodium Chloride) 530 mls @ 200 mls/hr IV Q24H STEPHEN Stop: 01/25/25 03:59 Last Infusion: 01/18/25 07:39 Dose: Infused Sodium Chloride (Nss) 1,000 mls @ 100 mls/hr IV .Q10H [facility] Stop: 01/18/25 20:44 Last Admin: 01/18/25 07:59 Dose: 100 mls/hr Insulin Aspart (Insulin Aspart Per Unit Charge) 0 units SC ACHS [facility] Stop: 02/16/25 17:05 Last Admin: 01/17/25 21:58 Dose: Not Given Metoprolol Succinate (Metoprolol Succ 50mg Ext Rel Tab) 50 mg PO BID [facility] Stop: 02/16/25 20:59 Last Admin: 01/18/25 07:51 Dose: 50 mg Miscellaneous (Carbohydrates For Hypoglycemia ) 15 - 30 gm PO UD PRN PRN Reason: Hypoglycemia Protocol Stop: 02/16/25 17:05 Miscellaneous Information (Vancomycin Consult Active) 1 each N/A UD PRN PRN Reason: Consult Stop: 02/16/25 17:05 Ondansetron HCl (Ondansetron Inj 2 Mg/Ml 2 Ml Vial) 4 mg IV Q6H PRN PRN Reason: Nausea Stop: 02/16/25 17:05 Oxycodone HCl (Oxycodone Hcl Ir 5 Mg Tab (Immediate Release)) 5 mg PO DAILY PRN PRN Reason: Severe Pain (Scale 7, 8, 9,10) Stop: 01/31/25 17:05 Last Admin: 01/18/25 07:48 Dose: 5 mg Pantoprazole Sodium (Pantoprazole 40 Mg Tab) 40 mg PO QAM [facility] Stop: 02/17/25 08:59 Last Admin: 01/18/25 07:51 Dose: 40 mg Polyethylene Glycol (Polyethylene (Miralax) 17 Gm Pack) 17 gm PO DAILY PRN PRN Reason: Constipation Stop: 02/16/25 17:05 Prednisone (Prednisone 5 Mg Tab) 5 mg PO DAILY [facility] Stop: 02/17/25 08:59 Last Admin: 01/18/25 07:49 Dose: 5 mg Rosuvastatin Calcium (Rosuvastatin Calcium 20 Mg Tab) 20 mg PO QAM [facility] Stop: 02/17/25 08:59 Last Admin: 01/18/25 07:51 Dose: 20 mg Tamsulosin HCl (Tamsulosin Hcl 0.4 Mg Cap) 0.4 mg PO DAILY STEPHEN Stop: 02/17/25 08:59 Last Admin: 01/18/25 07:50 Dose: 0.4 mg Vitamin D (Cholecalciferol 25 Mcg (1000 Units) Tab) 50 mcg PO DAILY STEPHEN Stop: 02/17/25 08:59 Last Admin: 01/18/25 07:50 Dose: 50 mcg
[2025-01-18] MEDS ORDERED: VANCOMYCIN HCL 1,250 MG in SODIUM CHLORIDE 0.9% 250 ML IV SCH (09:00)
[2025-01-18 09:28] LABS: Basophils # (auto) 0.04 K/uL (0.00-0.20); Basophils % (auto) 0.4 %; Eosinophils # (auto) 0.03 K/uL (0.00-0.50); Eosinophils % (auto) 0.3 %; Hematocrit (blood only) 29.9 % (42.0-52.0); Hemoglobin 9.7 g/dl (14.0-18.0); Immature Granulocytes # (auto) 0.07 K/uL (0.01-0.20); Immature Granulocytes % (auto) 0.7 %; Lymphocytes # (auto) 1.31 K/uL (1.20-3.40); Lymphocytes % (auto) 13.3 %; Mean Corpuscular Hemoglobin 32.6 pg (25.0-34.0); Mean Corpuscular Hgb Conc 32.4 g/dL (32.0-36.0); Mean Corpuscular Volume 100.3 fL (80.0-100.0); Mean Platelet Volume 11.8 fL (9.4-12.4); Monocytes # (auto) 1.13 K/uL (0.11-0.59); Monocytes % (auto) 11.4 %; Neutrophils % (auto) 73.9 %; Platelet Count 148 K/uL (130-400); RDW Coefficient of Variation 16.5 % (11.5-14.5); RDW Standard Deviation 60.5 fL (36.4-46.3); Red Blood Count 2.98 M/uL (4.70-6.10); White Blood Count 9.88 K/ul (4.8-10.8)
[2025-01-18 09:33] LABS: Estimated Average Glucose 140 mg/dl; Hemoglobin A1C 6.5 % (4.5-5.6)
[2025-01-18 09:40] LABS: BUN Creatinine Ratio 17.3 (10-20); Calcium 8.3 mg/dl (8.6-10.3); Creatinine Clr Calc Pharmacy 61.2 ml/min; Phosphorus 2.5 mg/dl (2.5-4.9); Potassium 3.7 mmol/L (3.5-5.1)
--- NOTE | 2025-01-18 10:47 | Pharmacy Report ---
Pharmacy PK ABX Note - Date of Service January 18, 2025 - Assessment and Plan Assessment 79 year old M receiving vancomycin and Zosyn for treatment of cellulitis. Blood cultures pending. Renal function stable. Day # 2 of antimicrobial therapy. Plan Vancomycin * Loading dose: 1750 mg IV x 1 * Maintenance dose: 1500 mg IV every 24 hours * Regimen is predicted to achieve target AUC/FRANCISCA of 400-600 mg/L.hr * Will obtain a level after ~ 48h of therapy, or sooner if clinically indicated Pharmacy will continue to follow and will adjust dose/frequency as necessary. Thank you. Pharmacy has transitioned to AUC monitoring for vancomycin. AUC/FRANCISCA is the pref erred PK/PD target and is associated with decreased risk of nephrotoxicity compared to traditional trough targets.
[2025-01-18] MEDS: ALBUMIN 25% 25 GM/100 ML VIAL IV SCH (19:01)
[2025-01-19 06:48] LABS: Hematocrit (blood only) 25.3 % (42.0-52.0); Hemoglobin 8.5 g/dl (14.0-18.0); Mean Corpuscular Hemoglobin 33.7 pg (25.0-34.0); Mean Corpuscular Hgb Conc 33.6 g/dL (32.0-36.0); Mean Corpuscular Volume 100.4 fL (80.0-100.0); Mean Platelet Volume 12.1 fL (9.4-12.4); Platelet Count 136 K/uL (130-400); RDW Coefficient of Variation 16.1 % (11.5-14.5); Red Blood Count 2.52 M/uL (4.70-6.10); White Blood Count 8.29 K/ul (4.8-10.8)
[2025-01-19 07:17] LABS: BUN Creatinine Ratio 15.9 (10-20); Calcium 8.3 mg/dl (8.6-10.3); Creatinine Clr Calc Pharmacy 57.7 ml/min; Magnesium 2.1 mg/dl (1.7-2.4); Phosphorus 2.7 mg/dl (2.5-4.9); Potassium 3.5 mmol/L (3.5-5.1)
--- NOTE | 2025-01-19 07:55 | Hospitalist Progress Note ---
Date of Service January 19, 2025 Assessment & Plan (1) Cellulitis of left leg: Plan: Patient is 79-year-old male with PMH HTN, persistent atrial fibrillation anticoagulated on Eliquis, paroxysmal SVT, DM II, chronic anemia, rheumatoid arthritis, leg wounds presented to ER with c/o left leg redness and increased pain x 2 days. On 01/15/25 had presented to wound clinic with new hematoma to left leg and had area I&D. 01/15/25 Wound culture was without growth. In ER afebrile, P: 103, R: 20, BP 105/57, 97% on room air WBC: 12.4, lactate: 2.3, Procalcitonin: 0.1 Tib-fib x-ray: No fracture or osteomyelitis noted Blood cultures pending In ER given Rocephin, vancomycin, gentle IVF ordered Give bolus IVF Zosyn, vancomycin Per chart review pt with history pseudomonas on prior wound cultures Trend lactate Tylenol, oxycodone prn pain. Has buprenorphine patch prescribed but hasn't started using it yet. CT LE obtained to assess for underlying abscess - 1. Left lower leg wound with cellulitis. No fluid collection to suggest abscess. 2. No evidence for o steomyelitis within the left tibia or fibula. Wound nurse consult while inpatient Fall precautions CBC, BMP in am 01/19/2025 General surgery consulted and discussed with at the bedside - will hold Eliquis for now (in case debridement needed) #Chronic heart failure with preserved ejection fraction (HFpEF): CXR: Stable moderate cardiomegaly with mild pulmonary vascular congestion Will hold home oral lasix, spironolactone and reassess volume status tomorrow 02/02/2024 echo: EF: 55-60%, mild concentric LVH, moderate aortic valve sclerosis without significant stenosis, mild mitral regurgitation #Atrial fibrillation: History persistent A-Fib Paroxysmal SVT Borderline tachybrady syndrome In ER HR low 100's. Denies CP, SOB, palpitations Monitor on telemetry Continue metoprolol succinate, Eliquis #Diabetes mellitus, type II: A1c: 8.5 on 08/01/24 Hold home metformin Novolog sliding scale per protocol Diabetic diet current A1c 6.5% #COPD (chronic obstructive pulmonary disease): No signs acute exacerbation Continue home inhalers #HLD (hyperlipidemia): Continue rosuvastatin #Rheumatoid arthritis: On Chronic prednisone 5mg daily Continue prednisone Chronic anemia: History B12 deficiency Hb. (baseline appears in 11's) Continue B12 supplement #BPH (benign prostatic hyperplasia): Continue finasteride, tamsulosin DVT Prophylaxis - Eliquis -> will put on hold for now Dispo: telemetry Full Code as per discussion with pt Admission and Anticipated Discharge Date Admission Date: January 17, 2025 Subjective Pt seen in follow up of cellulitis, follows with wound care - referred by wound care to the ER currently on vanco zosyn on admission, blood cultx pending Sitting up in bed in NAD, says pain in his leg is improved no fever, chills, chest pain, shortness of breath, no abd. pain At the bedside, pt seen with gen. surg. team , plan to hold eliquis for now Review of Systems Review of Systems: All systems reviewed & are unremarkable except as noted in Subjective Physical Exam Physical Exam: General: no acute distress, WDWN elderly male Head: normocephalic, atraumatic Eyes: conjunctiva non-injected, anicteric ENT: normal inspection external ears, nose, mucous membranes moist Neck: supple Lungs: no respiratory distress, +slight rales at bases bilaterally, no wheezing/rhonchi CV: irregularly irregular, mildly tachycardic Abd: normal BS, soft, non-tender Ext: RLE: scars noted. +diffuse tender to palpation (pt reports chronic). LLE: +multiple scars. distal leg wound and foot wound appears to be healing well wi thout surrounding erythema and no noted discharge. Left lateral leg wound with skin tear and noted incision site with surrounding erythema of entire lower leg extending to knee and just proximal to medial aspect of knee and lower femur region. Area very tender to palpation and is warm Neuro: A&O x 3, no focal deficits noted, normal affect Skin: as above in extremities. +scattered ecchymosis to extremities. warm, dry Results & Data Results & Data Vital Signs (Past 12 Hours) Vital Signs Temp Pulse Pulse Resp BP Pulse Ox O2 Del Method 01/19/25 07:09 92 H 01/19/25 03:16 36.6 C 96 H 18 117/69 95 Room Air 01/19/25 00:42 18 98 Room Air 01/18/25 23:32 106 H 01/18/25 23:27 36.5 C 114 H 18 162/76 H 01/18/25 20:06 36.5 C 107 H 18 119/73 91 Room Air Laboratory Results 01/19/25 01/18/25 01/18/25 Range/Units 05:45 20:37 17:24 WBC 8.29 (4.8-10.8) K/ul RBC 2.52 L (4.70-6.10) M/uL Hgb 8.5 L (14.0-18.0) g/dl Hct 25.3 L (42.0-52.0) % MCV 100.4 H (80.0-100.0) fL MCH 33.7 (25.0-34.0) pg MCHC 33.6 (32.0-36.0) g/dL RDW Std Deviation 59.0 H (36.4-46.3) fL RDW Coeff of Roxanna 16.1 H (11.5-14.5) % Plt Count 136 (130-400) K/uL MPV 12.1 (9.4-12.4) fL Immature Gran % (Auto) % Neut % (Auto) % Lymph % (Auto) % Dade % (Auto) % Eos % (Auto) % Baso % (Auto) % Neut # (Auto) (1.40-6.50) K/uL Lymph # (Auto) (1.20-3.40) K/uL Dade # (Auto) (0.11-0.59) K/uL Eos # (Auto) (0.00-0.50) K/uL Baso # (Auto) (0.00-0.20) K/uL Immature Gran # (Auto) (0.01-0.20) K/uL Sodium 137 (136-145) mmol/L Potassium 3.5 (3.5-5.1) mmol/L Chloride 106 (98-107) mmol/L Carbon Dioxide 22 (21-32) mmol/L Anion Gap 9 (3-11) BUN 17 (6-23) mg/dl Creatinine 1.07 (0.6-1.4) mg/dl Est Cr Clr Drug Dosing 57.7 ml/min eGFR 69.72 BUN/Creatinine Ratio 15.9 (10-20) Glucose 85 (70-99(Fasting)) mg/dl POC Glucose 214 H 140 H (70-99) mg/dl Estimat Average Glucose mg/dl Hemoglobin A1c (4.5-5.6) % Calcium 8.3 L (8.6-10.3) mg/dl Phosphorus 2.7 (2.5-4.9) mg/dl Magnesium 2.1 (1.7-2.4) mg/dl 01/18/25 01/18/25 01/18/25 Range/Units 12:29 08:30 08:24 WBC 9.88 (4.8-10.8) K/ul RBC 2.98 L (4.70-6.10) M/uL Hgb 9.7 L (14.0-18.0) g/dl Hct 29.9 L (42.0-52.0) % MCV 100.3 H (80.0-100.0) fL MCH 32.6 (25.0-34.0) pg MCHC 32.4 (32.0-36.0) g/dL RDW Std Deviation 60.5 H (36.4-46.3) fL RDW Coeff of Roxanna 16.5 H (11.5-14.5) % Plt Count 148 (130-400) K/uL MPV 11.8 (9.4-12.4) fL Immature Gran % (Auto) 0.7 % Neut % (Auto) 73.9 % Lymph % (Auto) 13.3 % Dade % (Auto) 11.4 % Eos % (Auto) 0.3 % Baso % (Auto) 0.4 % Neut # (Auto) 7.30 H (1.40-6.50) K/uL Lymph # (Auto) 1.31 (1.20-3.40) K/uL Dade # (Auto) 1.13 H (0.11-0.59) K/uL Eos # (Auto) 0.03 (0.00-0.50) K/uL Baso # (Auto) 0.04 (0.00-0.20) K/uL Immature Gran # (Auto) 0.07 (0.01-0.20) K/uL Sodium 134 L (136-145) mmol/L Potassium 3.7 (3.5-5.1) mmol/L Chloride 102 (98-107) mmol/L Carbon Dioxide 24 (21-32) mmol/L Anion Gap 8 (3-11) BUN 17 (6-23) mg/dl Creatinine 0.98 (0.6-1.4) mg/dl Est Cr Clr Drug Dosing 61.2 ml/min eGFR 77.47 BUN/Creatinine Ratio 17.3 (10-20) Glucose 141 H (70-99(Fasting)) mg/dl POC Glucose 163 H 168 H (70-99) mg/dl Estimat Average Glucose 140 mg/dl Hemoglobin A1c 6.5 H (4.5-5.6) % Calcium 8.3 L (8.6-10.3) mg/dl Phosphorus 2.5 (2.5-4.9) mg/dl Magnesium 2.0 (1.7-2.4) mg/dl Medications Administered Current Inpatient Medications Acetaminophen (Acetaminophen 325 Mg Tab) 650 mg PO Q4H PRN PRN Reason: Pain or Fever Stop: 02/16/25 17:05 Last Admin: 01/19/25 04:27 Dose: 650 mg Apixaban (Apixaban 5 Mg Tablet) 5 mg PO BID [facility] Stop: 02/16/25 20:59 Last Admin: 01/18/25 20:32 Dose: 5 mg Cyanocobalamin (Cyanocobalamin (B-12) 500 Mcg Tablet) 1,000 mcg PO DAILY [facility]PH[facility] Stop: 02/17/25 08:59 Last Admin: 01/18/25 07:50 Dose: 1,000 mcg Dextrose (Dextrose 50% 50 Ml Syringe) 25 - 50 ml IV UD PRN; Protocol PRN Reason: Hypoglycemia Protocol Stop: 02/16/25 17:05 Finasteride (Finasteride 5 Mg Tab) 5 mg PO DAILY STEPHEN Stop: 02/17/25 08:59 Last Admin: 01/18/25 07:51 Dose: 5 mg Fluticasone/Vilanterol (Fluticasone/Vilanterol 200/25mcg 14 Puffs/Inhaler) 1 puffs INH DAILY STEPHEN Stop: 02/17/25 08:59 Last Admin: 01/18/25 07:49 Dose: 1 puffs Gabapentin (Gabapentin 300 Mg Cap) 300 mg PO BID [facility] Stop: 02/16/25 20:59 Last Admin: 01/18/25 20:32 Dose: 300 mg Glucagon (Glucagon For Inj 1 Mg Vial) 1 mg SQ UD PRN; Protocol PRN Reason: Hypoglycemia Protocol Stop: 02/16/25 17:05 Glucose (Glucose 40% Gel 15 Gm Tube) 15 - 30 gm PO UD PRN; Protocol PRN Reason: Hypoglycemia Protocol Stop: 02/16/25 17:05 Glucose (Glucose 10 Tab/Tube) 4 - 8 tab PO UD PRN; Protocol PRN Reason: Hypoglycemia Protocol Stop: 02/16/25 17:05 Piperacillin Sod/Tazobactam Sod (Zosyn) 4.5 gm in 100 mls @ 25 mls/hr IV Q8H STEPHEN; Protocol Stop: 01/25/25 03:59 Last Admin: 01/19/25 03:43 Dose: 25 mls/hr Vancomycin HCl 1,500 mg/ (Sodium Chloride) 530 mls @ 200 mls/hr IV Q24H [facility] Stop: 01/25/25 03:59 Last Infusion: 01/19/25 07:18 Dose: Infused Insulin Aspart (Insulin Aspart Per Unit Charge) 0 units SC ACHS [facility] Stop: 02/16/25 17:05 Last Admin: 01/18/25 20:41 Dose: 3 units Metoprolol Succinate (Metoprolol Succ 50mg Ext Rel Tab) 50 mg PO BID [facility] Stop: 02/16/25 20:59 Last Admin: 01/18/25 20:32 Dose: 50 mg Miscellaneous (Carbohydrates For Hypoglycemia ) 15 - 30 gm PO UD PRN PRN Reason: Hypoglycemia Protocol Stop: 02/16/25 17:05 Miscellaneous Information (Vancomycin Consult Active) 1 each N/A UD PRN PRN Reason: Consult Stop: 02/16/25 17:05 Ondansetron HCl (Ondansetron Inj 2 Mg/Ml 2 Ml Vial) 4 mg IV Q6H PRN PRN Reason: Nausea Stop: 02/16/25 17:05 Oxycodone HCl (Oxycodone Hcl Ir 5 Mg Tab (Immediate Release)) 5 mg PO DAILY PRN PRN Reason: Severe Pain (Scale 7, 8, 9,10) Stop: 01/31/25 17:05 Last Admin: 01/18/25 07:48 Dose: 5 mg Pantoprazole Sodium (Pantoprazole 40 Mg Tab) 40 mg PO QAM [facility] Stop: 02/17/25 08:59 Last Admin: 01/18/25 07:51 Dose: 40 mg Polyethylene Glycol (Polyethylene (Miralax) 17 Gm Pack) 17 gm PO DAILY PRN PRN Reason: Constipation Stop: 02/16/25 17:05 Potassium Chloride (Potassium Chloride Crtab 20 Meq Tabcr) 40 meq PO NOW STA Stop: 01/19/25 07:54 Prednisone (Prednisone 5 Mg Tab) 5 mg PO DAILY STEPHEN Stop: 02/17/25 08:59 Last Admin: 01/18/25 07:49 Dose: 5 mg Rosuvastatin Calcium (Rosuvastatin Calcium 20 Mg Tab) 20 mg PO QAM [facility] Stop: 02/17/25 08:59 Last Admin: 01/18/25 07:51 Dose: 20 mg Tamsulosin HCl (Tamsulosin Hcl 0.4 Mg Cap) 0.4 mg PO DAILY [facility]PH[facility] Stop: 02/17/25 08:59 Last Admin: 01/18/25 07:50 Dose: 0.4 mg Vitamin D (Cholecalciferol 25 Mcg (1000 Units) Tab) 50 mcg PO DAILY STEPH[facility] Stop: 02/17/25 08:59 Last Admin: 01/18/25 07:50 Dose: 50 mcg
[2025-01-19] MEDS: POTASSIUM CHLORIDE CRTAB 20 MEQ TABCR PO STA (08:21)
--- NOTE | 2025-01-19 14:40 | Surgery Consultation ---
Date of Consultation January 19, 2025 Assessment & Plan (1) Open wound: Pt is afebrile without leukocytosis, is on Zosyn and Vancomycin Discontinue the vaseline gauze dressing for today Replace with dry gauze for now Dry gauze, ABD and Kerlix were applied to secure dressings in place Obtain would care consultation Surgery will evaluate again in tomorrow History of Present Illness Reason for Consultation: LLE wound Attending Physician: Jatinder Sellers MD History of Present Illness Patient is 79-year-old male with PMH HTN, persistent atrial fibrillation anticoagulated on Eliquis, paroxysmal SVT, DM II, chronic anemia, rheumatoid arthritis, leg wounds presented to ER with c/o left leg redness and increased pain x 2 days. On 01/15/25 had presented to wound clinic with new hematoma to left leg and had area I&D. Suffered a tear at the area which has begun to cause more pain and swell. 01/15/25 Wound culture was without growth. Allergies Allergy/AdvReac Type Severity Reaction Status Date / Time No Known Allergies Allergy Verified 01/17/25 10:19 Home Medications Medication Instructions Recorded Confirmed Type finasteride 5 mg tablet 5 mg PO DAILY 04/25/20 01/17/25 History gabapentin 300 mg capsule 300 mg PO BID 04/25/20 01/17/25 History prednisone 5 mg tablet 5 mg PO DAILY 04/25/20 01/17/25 History spironolactone 25 mg tablet 25 mg PO QAM 04/25/20 01/17/25 History cholecalciferol (vitamin D3) 25 50 mcg PO DAILY 07/30/20 01/17/25 History mcg (1,000 unit) tablet (Vitamin D3) apixaban 5 mg tablet 5 mg PO BID 12/31/22 01/17/25 History pantoprazole 40 mg tablet,delayed 40 mg PO QAM 12/31/22 01/17/25 History release cyanocobalamin (vitamin B-12) 1,000 mcg PO DAILY 01/31/24 01/17/25 History 1,000 mcg tablet (Vitamin B-12) fluticasone 500 mcg-salmeterol 50 1 inh inhalation BID 01/31/24 01/17/25 History mcg/dose blistr powdr for inhalation (Wixela Inhub) metoprolol succinate 50 mg 50 mg PO BID #60 tabs 02/08/24 01/17/25 Rx tablet,extended release 24 hr rosuvastatin 20 mg tablet 20 mg PO QAM 03/25/24 01/17/25 History furosemide 40 mg tablet 60 mg (1.5 x 40 mg) PO QAM #45 tabs 08/04/24 01/17/25 Rx metformin 500 mg tablet,extended 500 mg PO DAILY #30 tabs 08/04/24 01/17/25 Rx release 24 hr tamsulosin 0.4 mg capsule (Flomax) 0.4 mg PO DAILY 10/23/24 01/17/25 History acetaminophen 500 mg tablet 500 mg PO TID PRN Pain 01/17/25 01/17/25 History buprenorphine 5 mcg/hour weekly 1 patch transdermal Q7D 01/17/25 01/17/25 History transdermal patch food supplemt, lactose-reduced 1 ea PO BID 01/17/25 01/17/25 History (Ensure oral liquid) oxycodone 5 mg tablet 5 mg PO DAILY PRN pain 01/17/25 01/17/25 History skin cleanser comb no.31 1 spray topical DAILY 01/17/25 01/17/25 History (Skintegrity Wound Cleanser topical spray) Patient History Medical History Hx of sepsis treated at [facility] 05/2024 > resolved per pt History of COVID-2019 History of COPD no res inh, controlled with routine inh per pt History of pneumonia treated at [facility] 05/13/24 was overnight obs per pt, no further issues, breathing is better per pt CHF (congestive heart failure) controlled at present per pt, follows with Dr. Denny Cellulitis present to left lower leg > sees wound clinic weekly Hx of peripheral neuropathy Ascending aorta enlargement follows with Dr. Denny, pt unaware of details Surgical History Hx of cataract extraction right History of tooth extraction History of colonoscopy History of thoracotomy remote hx H/O inguinal hernia repair Family History Father Heart disease Social History Smoking Status: Former smoker Tobacco Type: Smokeless Tobacco (Dip or Chew) Cigarettes Per Day: 1 PPD; Second Hand Exposure: No; Do You Dip or Chew Tobacco: Yes (1 can per week); Hx Alcohol Use: No Hx Substance Use: No Preferred Language: Honduran Communication Ability: Effective Communication Ability Comment: STILLAGU[place]ISH Visual Impairment: Limited Hearing Ability: Hard of Hearing Well Drill Operator Required: No Beliefs That Will Affect Care: None marital status: / Current Living Situation: Alone Current Living Situation Comment: lives next door to son current occupational status: retired How many Children do You have: 3 How many Children do You have Comment: All children live close and one son that lives closest is able to assist Feels Safe at Home: Yes Diet: regular during the past year weight has: remained stable Assistive Devices: Denture - Upper, Denture - Lower, Glasses, Raised Toilet Seat, Walker and Wheelchair Review of Systems Review of Systems: Pt denies any other associated symptoms Physical Exam Constitutional: average body habitus; not frail appearing, not in distress and not diaphoretic Respiratory: normal respiratory effort; no respiratory distress, no labored breathing and does not use accessory muscles Skin: LE edema b/l LLE with what appears to be a full thickness jagged tear creating a flap that remains associated with the underlying tissue but has developed edema in the superficial skin layers appearing as a fluid filled blister. This is TTP and some serous fluid was able to be expressed. There was no purulence. There is a small skin laceration inferior to this area with macerated edges. The area had been covered with a vaseline gauze which has macerated the skin as most of the skin is intact. Psychiatric: Orientation: alert and oriented x 3 Mood: no depressed mood and no anxious mood Results & Data Vital Signs (Past 12 Hours) Vital Signs Temp Pulse Pulse Resp BP BP Pulse Ox 01/19/25 11:40 36.4 C L 77 17 107/64 100 01/19/25 08:31 36.4 C L 93 H 18 104/67 98 01/19/25 07:50 01/19/25 07:09 92 H 01/19/25 03:16 36.6 C 96 H 18 117/69 95 O2 Del Method 01/19/25 11:40 Room Air 01/19/25 08:31 Room Air 01/19/25 07:50 Room Air 01/19/25 07:09 01/19/25 03:16 Room Air PG Care Time/CCT Total # of Minutes Spent Total Time Spent with Patient: Total time spent is greater than 50% in coordination of care (as documented) at patient's floor/unit and/or counseling patient: Coding Level of Care Code 94641 INT INP/OBS CARE 1/40MIN Diagnoses Open wound T14.8XXA
[2025-01-19] MEDS: oxyCODONE HCL IR 5 MG TAB (IMMEDIATE RELEASE) PO PRN (16:38)
[2025-01-20 03:40] LABS: Hematocrit (blood only) 26.5 % (42.0-52.0); Hemoglobin 8.7 g/dl (14.0-18.0); Mean Corpuscular Hemoglobin 33.2 pg (25.0-34.0); Mean Corpuscular Hgb Conc 32.8 g/dL (32.0-36.0); Mean Corpuscular Volume 101.1 fL (80.0-100.0); Mean Platelet Volume 11.8 fL (9.4-12.4); Platelet Count 149 K/uL (130-400); RDW Coefficient of Variation 16.2 % (11.5-14.5); RDW Standard Deviation 60.3 fL (36.4-46.3); Red Blood Count 2.62 M/uL (4.70-6.10); White Blood Count 9.38 K/ul (4.8-10.8)
[2025-01-20 03:57] LABS: BUN Creatinine Ratio 16.8 (10-20); Calcium 8.4 mg/dl (8.6-10.3); Creatinine Clr Calc Pharmacy 54.6 ml/min; Magnesium 2.3 mg/dl (1.7-2.4); Phosphorus 2.4 mg/dl (2.5-4.9); Potassium 3.8 mmol/L (3.5-5.1)
--- NOTE | 2025-01-20 11:05 | Pharmacy Report ---
Pharmacy PK ABX Note - Date of Service January 20, 2025 - Assessment and Plan Assessment 79 year old M receiving vancomycin and Zosyn for treatment of LLE cellulitis. Blood cultures show no growth at 48 hours. Recent wound cultures from growing Pseudomonas aeruginosa. Renal function stable. Discussed with hospitalist, who would like to maintain broad spectrum coverage at this time. Surgery consulted. Day # 4 of antimicrobial therapy. Plan Vancomycin * Current regimen: 1500 mg IV every 24 hours * Trough level obtained 01/20/25 resulted as 12.9 mcg/mL. This is predicted to achieve target AUC/FRANCISCA of 400-600 mg/L.hr * Predicted AUC at steady state: 533 mg/L.hr * Continue 1500 mg IV every 24 hours * Repeat level in the next 48-72 hours if therapy is continued and/or change in patient clinical status Zosyn * 4.5 g IV q8h - appropriately dosed for indication/renal function Pharmacy will continue to follow and will adjust dose/frequency as necessary. Thank you. Pharmacy has transitioned to AUC monitoring for vancomycin. AUC/FRANCISCA is the preferred PK/PD target and is associated with decreased risk of nephrotoxicity compared to traditional trough targets.
--- NOTE | 2025-01-20 12:09 | Surgery Progress Note ---
Date of Service January 20, 2025 Assessment & Plan (1) Traumatic hematoma of left lower leg: Plan: Pt here w/ hematoma of LLE with concern for infection. recently I&D at wound care center on 01/15, now w/ worsening pain/redness evaluated today at the bedside in conjunction with the wound care team; leg is edematous, red and tender, there is a blister accumulating fluid we will plan on further I&D of the LLE in the OR tomorrow continue to hold eliquis NPO ordered for midnight as above. will plan sharp debridement tomorrow. pt agrees. Admission and Anticipated Discharge Date Admission Date: January 17, 2025 Subjective Patient wound examined, ongoing pain, worse with any palpation of LLE. Physical Exam Physical Exam: awake/alert, no distress Skin: left lower extremity examined with wound care and dr. patel, + edema and erythema noted, very tender to palpation, open draining wound noted from recent I&D and superficial skin blister superior to all of this collecting fluid underneath Results & Data Vital Signs (Past 12 Hours) Vital Signs Temp Pulse Pulse Resp BP BP Pulse Ox 01/20/25 07:36 97.7 F 70 20 115/69 94 01/20/25 07:00 84 01/20/25 00:26 97.9 F 101 H 18 111/77 98 O2 Del Method 01/20/25 07:36 Room Air 01/20/25 07:00 01/20/25 00:26 Room Air PG Care Time/CCT Total # of Minutes Spent Total Time Spent with Patient: Total time spent is greater than 50% in coordination of care (as documented) at patient's floor/unit and/or counseling patient: Coding Level of Care Code 85503 SUB INP/OBS CARE 11/02MIN Diagnoses Traumatic hematoma of left lower leg, subsequent encounter S80.12XD Encounter type: subsequent encounter (1) Traumatic hematoma of left lower leg Encounter type: subsequent encounter Qualified Code(s): S80.12XD - Contusion of left lower leg, subsequent encounter
--- NOTE | 2025-01-20 13:00 | Hospitalist Progress Note ---
Date of Service January 20, 2025 Assessment & Plan (1) Cellulitis of left leg: Plan: Patient is 79-year-old male with PMH HTN, persistent atrial fibrillation anticoagulated on Eliquis, paroxysmal SVT, DM II, chronic anemia, rheumatoid arthritis, leg wounds presented to ER with c/o left leg redness and increased pain x 2 days. On 01/15/25 had presented to wound clinic with new hematoma to left leg and had area I&D. 01/15/25 Wound culture was without growth. In ER afebrile, P: 103, R: 20, BP 105/57, 97% on room air WBC: 12.4, lactate: 2.3, Procalcitonin: 0.1 Tib-fib x-ray: No fracture or osteomyelitis noted Blood cultures pending In ER given Rocephin, vancomycin, gentle IVF ordered Give bolus IVF Zosyn, vancomycin Per chart review pt with history pseudomonas on prior wound cultures Trend lactate Tylenol, oxycodone prn pain. Has buprenorphine patch prescribed but hasn't started using it yet. CT LE obtained to assess for underlying abscess - 1. Left lower leg wound with cellulitis. No fluid collection to suggest abscess. 2. No evidence for o steomyelitis within the left tibia or fibula. Wound nurse consult while inpatient Fall precautions CBC, BMP in am 01/19/2025 General surgery consulted and discussed with at the bedside - will hold Eliquis for now (in case debridement needed) -> 01/20 Pt re-evaluated by surgery again - plan for I&D tmrw #Chronic heart failure with preserved ejection fraction (HFpEF): CXR: Stable moderate cardiomegaly with mild pulmonary vascular congestion Will hold home oral lasix, spironolactone and reassess volume status tomorrow 02/02/2024 echo: EF: 55-60%, mild concentric LVH, moderate aortic valve sclerosis without significant stenosis, mild mitral regurgitation #Atrial fibrillation: History persistent A-Fib Paroxysmal SVT Borderline tachybrady syndrome In ER HR low 100's. Denies CP, SOB, palpitations Monitor on telemetry Continue metoprolol succinate, Eliquis #Diabetes mellitus, type II: A1c: 8.5 on 08/01/24 Hold home metformin Novolog sliding scale per protocol Diabetic diet current A1c 6.5% #COPD (chronic obstructive pulmonary disease): No signs acute exacerbation Continue home inhalers #HLD (hyperlipidemia): Continue rosuvastatin #Rheumatoid arthritis: On Chronic prednisone 5mg daily Continue prednisone Chronic anemia: History B12 deficiency Hb. (baseline appears in 's) Continue B12 supplement #BPH (benign prostatic hyperplasia): Continue finasteride, tamsulosin DVT Prophylaxis - Eliquis -> on hold for now, plan for OR tmrw Dispo: telemetry Full Code as per discussion with pt Admission and Anticipated Discharge Date Admission Date: January 17, 2025 Subjective Pt seen in follow up of cellulitis, follows with wound care - referred by wound care to the ER currently on vanco zosyn on admission, blood cultx pending Sitting up in bed in NAD, + pain in his leg no fever, chills, chest pain, shortness of breath, no abd. pain plan to hold eliquis for now Seen by surg. team -> plan for I&D tmrw Review of Systems Review of Systems: All systems reviewed & are unremarkable except as noted in Subjective Physical Exam Physical Exam: General: no acute distress, WDWN elderly male Head: normocephalic, atraumatic Eyes: conjunctiva non-injected, anicteric ENT: normal inspection external ears, nose, mucous membranes moist Neck: supple Lungs: no respiratory distress, +slight rales at bases bilaterally, no whe ezing/rhonchi CV: irregularly irregular Abd: normal BS, soft, non-tender Ext: RLE: scars noted. +diffuse tender to palpation (pt reports chronic). LLE: +multiple scars. distal leg wound and foot wound appears to be healing well without surrounding erythema and no noted discharge. Left lateral leg wound with skin tear and noted incision site with surrounding erythema of entire lower leg extending to knee and just proximal to medial aspect of knee and lower femur region. Area very tender to palpation and is warm Neuro: A&O x 3, no focal deficits noted, normal affect Skin: as above in extremities. +scattered ecchymosis to extremities. warm, dry Results & Data Results & Data Vital Signs (Past 12 Hours) Vital Signs Temp Pulse Pulse Resp BP Pulse Ox O2 Del Method 01/20/25 07:36 36.5 C 70 20 115/69 94 Room Air 01/20/25 07:00 84 Laboratory Results 01/20/25 01/20/25 01/20/25 Range/Units 12:00 08:03 03:17 WBC 9.38 (4.8-10.8) K/ul RBC 2.62 L (4.70-6.10) M/uL Hgb 8.7 L (14.0-18.0) g/dl Hct 26.5 L (42.0-52.0) % MCV 101.1 H (80.0-100.0) fL MCH 33.2 (25.0-34.0) pg MCHC 32.8 (32.0-36.0) g/dL RDW Std Deviation 60.3 H (36.4-46.3) fL RDW Coeff of Roxanna 16.2 H (11.5-14.5) % Plt Count 149 (130-400) K/uL MPV 11.8 (9.4-12.4) fL Sodium 135 L (136-145) mmol/L Potassium 3.8 (3.5-5.1) mmol/L Chloride 106 (98-107) mmol/L Carbon Dioxide 21 (21-32) mmol/L Anion Gap 8 (3-11) BUN 19 (6-23) mg/dl Creatinine 1.13 (0.6-1.4) mg/dl Est Cr Clr Drug Dosing 54.6 ml/min eGFR 65.30 BUN/Creatinine Ratio 16.8 (10-20) Glucose 132 H (70-99(Fasting)) mg/dl POC Glucose 135 H 124 H (70-99) mg/dl Calcium 8.4 L (8.6-10.3) mg/dl Phosphorus 2.4 L (2.5-4.9) mg/dl Magnesium 2.3 (1.7-2.4) mg/dl Random Vancomycin 12.9 (10-20) mcg/ml 01/19/25 01/19/25 Range/Units 20:58 17:10 WBC (4.8-10.8) K/ul RBC (4.70-6.10) M/uL Hgb (14.0-18.0) g/dl Hct (42.0-52.0) % MCV (80.0-100.0) fL MCH (25.0-34.0) pg MCHC (32.0-36.0) g/dL RDW Std Deviation (36.4-46.3) fL RDW Coeff of Roxanna (11.5-14.5) % Plt Count (130-400) K/uL MPV (9.4-12.4) fL Sodium (136-145) mmol/L Potassium (3.5-5.1) mmol/L Chloride (98-107) mmol/L Carbon Dioxide (21-32) mmol/L Anion Gap (3-11) BUN (6-23) mg/dl Creatinine (0.6-1.4) mg/dl Est Cr Clr Drug Dosing ml/min eGFR BUN/Creatinine Ratio (10-20) Glucose (70-99(Fasting)) mg/dl POC Glucose 171 H 203 H (70-99) mg/dl Calcium (8.6-10.3) mg/dl Phosphorus (2.5-4.9) mg/dl Magnesium (1.7-2.4) mg/dl Random Vancomycin (10-20) mcg/ml Medications Administered Current Inpatient Medications Acetaminophen (Acetaminophen 325 Mg Tab) 650 mg PO Q4H PRN PRN Reason: Pain or Fever Stop: 02/16/25 17:05 Last Admin: 01/19/25 11:05 Dose: 650 mg Apixaban (Apixaban 5 Mg Tablet) 5 mg PO BID STEPHEN Stop: 02/16/25 20:59 Last Admin: 01/19/25 08:40 Dose: 5 mg Cyanocobalamin (Cyanocobalamin (B-12) 500 Mcg Tablet) 1,000 mcg PO DAILY STEPHEN Stop: 02/17/25 08:59 Last Admin: 01/20/25 09:35 Dose: 1,000 mcg Dextrose (Dextrose 50% 50 Ml Syringe) 25 - 50 ml IV UD PRN; Protocol PRN Reason: Hypoglycemia Protocol Stop: 02/16/25 17:05 Finasteride (Finasteride 5 Mg Tab) 5 mg PO DAILY STEPHEN Stop: 02/17/25 08:59 Last Admin: 01/20/25 09:35 Dose: 5 mg Fluticasone/Vilanterol (Fluticasone/Vilanterol 200/25mcg 14 Puffs/Inhaler) 1 puffs INH DAILY STEPHEN Stop: 02/17/25 08:59 Last Admin: 01/20/25 09:36 Dose: 1 puffs Gabapentin (Gabapentin 300 Mg Cap) 300 mg PO BID [facility] Stop: 02/16/25 20:59 Last Admin: 01/20/25 09:36 Dose: 300 mg Glucagon (Glucagon For Inj 1 Mg Vial) 1 mg SQ UD PRN; Protocol PRN Reason: Hypoglycemia Protocol Stop: 02/16/25 17:05 Glucose (Glucose 40% Gel 15 Gm Tube) 15 - 30 gm PO UD PRN; Protocol PRN Reason: Hypoglycemia Protocol Stop: 02/16/25 17:05 Glucose (Glucose 10 Tab/Tube) 4 - 8 tab PO UD PRN; Protocol PRN Reason: Hypoglycemia Protocol Stop: 02/16/25 17:05 Piperacillin Sod/Tazobactam Sod (Zosyn) 4.5 gm in 100 mls @ 25 mls/hr IV Q8H STEPHEN; Protocol Stop: 01/25/25 03:59 Last Admin: 01/20/25 11:55 Dose: 25 mls/hr Vancomycin HCl 1,500 mg/ (Sodium Chloride) 530 mls @ 200 mls/hr IV Q24H [facility] Stop: 01/25/25 03:59 Last Infusion: 01/20/25 07:40 Dose: Infused Insulin Aspart (Insulin Aspart Per Unit Charge) 0 units SC ACHS [facility] Stop: 02/16/25 17:05 Last Admin: 01/20/25 12:44 Dose: 2 units Metoprolol Succinate (Metoprolol Succ 50mg Ext Rel Tab) 50 mg PO BID [facility] Stop: 02/16/25 20:59 Last Admin: 01/20/25 09:35 Dose: 50 mg Miscellaneous (Carbohydrates For Hypoglycemia ) 15 - 30 gm PO UD PRN PRN Reason: Hypoglycemia Protocol Stop: 02/16/25 17:05 Miscellaneous Information (Vancomycin Consult Active) 1 each N/A UD PRN PRN Reason: Consult Stop: 02/16/25 17:05 Ondansetron HCl (Ondansetron Inj 2 Mg/Ml 2 Ml Vial) 4 mg IV Q6H PRN PRN Reason: Nausea Stop: 02/16/25 17:05 Oxycodone HCl (Oxycodone Hcl Ir 5 Mg Tab (Immediate Release)) 5 mg PO Q4H PRN PRN Reason: Severe Pain (Scale 7, 8, 9,10) Stop: 01/31/25 17:05 Last Admin: 01/20/25 09:33 Dose: 5 mg Pantoprazole Sodium (Pantoprazole 40 Mg Tab) 40 mg PO QAM STEPHEN Stop: 02/17/25 08:59 Last Admin: 01/20/25 09:35 Dose: 40 mg Polyethylene Glycol (Polyethylene (Miralax) 17 Gm Pack) 17 gm PO DAILY PRN PRN Reason: Constipation Stop: 02/16/25 17:05 Prednisone (Prednisone 5 Mg Tab) 5 mg PO DAILY STEPHEN Stop: 02/17/25 08:59 Last Admin: 01/20/25 09:35 Dose: 5 mg Rosuvastatin Calcium (Rosuvastatin Calcium 20 Mg Tab) 20 mg PO QAM STEPHEN Stop: 02/17/25 08:59 Last Admin: 01/20/25 09:35 Dose: 20 mg Tamsulosin HCl (Tamsulosin Hcl 0.4 Mg Cap) 0.4 mg PO DAILY STEPHEN Stop: 02/17/25 08:59 Last Admin: 01/20/25 09:35 Dose: 0.4 mg Vitamin D (Cholecalciferol 25 Mcg (1000 Units) Tab) 50 mcg PO DAILY STEPHEN Stop: 02/17/25 08:59 Last Admin: 01/20/25 09:35 Dose: 50 mcg
[2025-01-21] MEDS: D5W AND NSS 1,000 ML IV SCH (06:39)
[2025-01-21] MEDS ORDERED: ONDANSETRON INJ 2 MG/ML 2 ML VIAL ONE (07:58)
[2025-01-21] MEDS ORDERED: LIDOCAINE 2% 2 ML VIAL/AMP(20MG/ML) INFIL ONE (07:58)
[2025-01-21] MEDS ORDERED: fentaNYL citrate PF 100 MCG/2 ML VIAL ONE (07:58)
[2025-01-21] MEDS ORDERED: PROPOFOL IV EMULSION 10 MG/ML 20 ML VIAL IV ONE (07:58)
--- NOTE | 2025-01-21 08:39 | Anesthesiology Consultation ---
Date of Service January 21, 2025 Assessment & Plan (1) Encounter for pre-operative examination: Chart Review Chart Review: Acceptable Risk for Surgery History Surgery Operation Date: 01/21/25 09:50 Proposed Procedures p Left Leg Hematoma Incision and Drainage - Tony Hui DO Height/Weight Height: 5 ft 6 in Weight: 92 kg Allergies Allergy/AdvReac Type Severity Reaction Status Date / Time No Known Allergies Allergy Verified 01/17/25 10:19 Medications Home Medications Medication Instructions Recorded Confirmed Last Taken finasteride 5 mg tablet 5 mg PO DAILY 04/25/20 01/17/25 07/31/24 gabapentin 300 mg capsule 300 mg PO BID 04/25/20 01/17/25 07/30/24 09:00 prednisone 5 mg tablet 5 mg PO DAILY 04/25/20 01/17/25 07/31/24 spironolactone 25 mg tablet 25 mg PO QAM 04/25/20 01/17/25 07/31/24 cholecalciferol (vitamin D3) 25 50 mcg PO DAILY 07/30/20 01/17/25 06/02/24 06:00 mcg (1,000 unit) tablet (Vitamin D3) apixaban 5 mg tablet 5 mg PO BID 12/31/22 01/17/25 07/31/24 pantoprazole 40 mg tablet,delayed 40 mg PO QAM 12/31/22 01/17/25 07/31/24 release cyanocobalamin (vitamin B-12) 1,000 mcg PO DAILY 01/31/24 01/17/25 07/31/24 1,000 mcg tablet (Vitamin B-12) fluticasone 500 mcg-salmeterol 50 1 inh inhalation BID 01/31/24 01/17/25 06/17/24 03:30 mcg/dose blistr powdr for inhalation (Wixela Inhub) metoprolol succinate 50 mg 50 mg PO BID #60 tabs 02/08/24 01/17/25 07/31/24 tablet,extended release 24 hr rosuvastatin 20 mg tablet 20 mg PO QAM 03/25/24 01/17/25 07/30/24 09:00 furosemide 40 mg tablet 60 mg (1.5 x 40 mg) PO QAM #45 tabs 08/04/24 01/17/25 Unknown metformin 500 mg tablet,extended 500 mg PO DAILY #30 tabs 08/04/24 01/17/25 Unknown release 24 hr tamsulosin 0.4 mg capsule (Flomax) 0.4 mg PO DAILY 10/23/24 01/17/25 Unknown acetaminophen 500 mg tablet 500 mg PO TID PRN Pain 01/17/25 01/17/25 Unknown buprenorphine 5 mcg/hour weekly 1 patch transdermal Q7D 01/17/25 01/17/25 Unknown transdermal patch food supplemt, lactose-reduced 1 ea PO BID 01/17/25 01/17/25 Unknown (Ensure oral liquid) oxycodone 5 mg tablet 5 mg PO DAILY PRN pain 01/17/25 01/17/25 Unknown skin cleanser comb no.31 1 spray topical DAILY 01/17/25 01/17/25 Unknown (Skintegrity Wound Cleanser topical spray) Active Medications Generic Name Dose Route Start Last Admin Trade Name Freq PRN Reason Stop Dose Admin Acetaminophen 650 mg 01/17/25 17:06 01/19/25 11:05 Acetaminophen 325 Mg Tab PO 02/16/25 17:05 650 mg Q4H PRN Administration Pain or Fever Apixaban 5 mg 01/17/25 21:00 01/19/25 08:40 Apixaban 5 Mg Tablet PO 02/16/25 20:59 5 mg BID STEPHEN Administration Cyanocobalamin 1,000 mcg 01/18/25 09:00 01/21/25 08:34 Cyanocobalamin (B-12) 500 Mcg Tablet PO 02/17/25 08:59 1,000 mcg DAILY STEPHEN Administration Finasteride 5 mg 01/18/25 09:00 01/21/25 08:34 Finasteride 5 Mg Tab PO 02/17/25 08:59 5 mg DAILY STEPHEN Administration Fluticasone/Vilanterol 1 puffs 01/18/25 09:00 01/21/25 08:34 Fluticasone/Vilanterol 200/25mcg 14 Puffs/Inhaler INH 02/17/25 08:59 1 puffs DAILY STEPHEN Administration Gabapentin 300 mg 01/17/25 21:00 01/21/25 08:34 Gabapentin 300 Mg Cap PO 02/16/25 20:59 300 mg BID STEPHEN Administration Piperacillin Sod/Tazobactam Sod 4.5 gm in 100 mls @ 25 mls/hr 01/18/25 04:00 01/21/25 08:16 Zosyn IV 01/25/25 03:59 Infused Q8H STEPHEN Infusion Protocol Vancomycin HCl 1,500 mg/ 530 mls @ 200 mls/hr 01/18/25 04:00 01/21/25 07:22 Sodium Chloride IV 01/25/25 03:59 Infused Q24H STEPHEN Infusion Dextrose/Sodium Chloride 1,000 mls @ 75 mls/hr 01/21/25 06:45 01/21/25 06:39 For D5w And Nss IV 01/22/25 06:44 75 mls/hr .[id number] STEPHEN Administration Insulin Aspart 0 units 01/17/25 17:06 01/20/25 21:16 Insulin Aspart Per Unit Charge SC 02/16/25 17:05 Not Given ACHS STEPHEN Metoprolol Succinate 50 mg 01/17/25 21:00 01/21/25 08:34 Metoprolol Succ 50mg Ext Rel Tab PO 02/16/25 20:59 50 mg BID STEPHEN Administration Oxycodone HCl 5 mg 01/19/25 13:59 01/20/25 21:29 Oxycodone Hcl Ir 5 Mg Tab (Immediate Release) PO 01/31/25 17:05 5 mg Q4H PRN Administration Severe Pain (Scale 7, 8, 9,10) Pantoprazole Sodium 40 mg 01/18/25 09:00 01/21/25 08:34 Pantoprazole 40 Mg Tab PO 02/17/25 08:59 40 mg QAM STEPHEN Administration Prednisone 5 mg 01/18/25 09:00 01/21/25 08:34 Prednisone 5 Mg Tab PO 02/17/25 08:59 5 mg DAILY STEPHEN Administration Rosuvastatin Calcium 20 mg 01/18/25 09:00 01/21/25 08:34 Rosuvastatin Calcium 20 Mg Tab PO 02/17/25 08:59 20 mg QAM STEPHEN Administration Tamsulosin HCl 0.4 mg 01/18/25 09:00 01/21/25 08:34 Tamsulosin Hcl 0.4 Mg Cap PO 02/17/25 08:59 0.4 mg DAILY STEPHEN Administration Vitamin D 50 mcg 01/18/25 09:00 01/21/25 08:34 Cholecalciferol 25 Mcg (1000 Units) Tab PO 02/17/25 08:59 50 mcg DAILY STEPHEN Administration Past Medical History Medical History (Updated 01/21/25 @ 08:39 by Porfirio Gan MD) Anemia HTN (hypertension) Atrial fibrillation with rapid ventricular response Diabetes mellitus, type II Thrombocytopenia Rheumatoid arthritis Hx of sepsis treated at [facility] 05/2024 > resolved per pt History of COVID-2019 History of COPD no res inh, controlled with routine inh per pt History of pneumonia treated at [facility] 05/13/24 was overnight obs per pt, no further issues, breathing is better per pt CHF (congestive heart failure) controlled at present per pt, follows with Dr. Denny Cellulitis present to left lower leg > sees wound clinic weekly Hx of peripheral neuropathy Ascending aorta enlargement follows with Dr. Denny, pt unaware of details Past Family History Family History Father Heart disease Past Surgical History Surgical History Hx of cataract extraction right History of tooth extraction History of colonoscopy History of thoracotomy remote hx H/O inguinal hernia repair Social History Smoking Status: Former smoker tobacco type: cigarettes Smoking cigarettes per day: 1 PPD Do You Dip or Chew Tobacco: Yes (1 can per week) Hx Alcohol Use: No Hx Substance Use: No substance use type: does not use Physical Exam Vital Signs Last Vital Signs Temp 36.7 C 01/21/25 08:11 Pulse 96 H 01/21/25 08:11 Resp 18 01/21/25 08:11 BP 122/71 01/21/25 08:11 Pulse Ox 96 01/21/25 08:11 O2 Del Method Room Air 01/21/25 08:11 Testing Laboratory Results 01/20/25 03:17 01/20/25 03:17 Hemoglobin A1c 6.5 % (4.5-5.6) H 01/18/25 08:30 01/17/25 14:57 Aerobic Blood Culture - Preliminary Blood No growth in Aerobic bottle after 48 hours. Anaerobic Blood Culture - Preliminary No growth in Anaerobic bottle after 48 hours. 01/17/25 14:38 Aerobic Blood Culture - Preliminary Blood No growth in Aerobic bottle after 48 hours. Anaerobic Blood Culture - Preliminary No growth in Anaerobic bottle after 48 hours. 01/21/25 01/21/25 01/20/25 08:25 06:22 21:11 POC Glucose 100 H 83 111 H Electrocardiogram Date: 07/31/24 Findings: + AFIB @ (87) Echocardiogram Date: 07/31/24 EF: 65-70% LV Function: normal Valvular Disease: + MR (mild to moderate)
--- NOTE | 2025-01-21 09:13 | History & Physical Bridge Note ---
Date of Service January 21, 2025 History & Physical Bridge Note I have examined the patient, reviewed the History & Physical and in the interval since the performance of the History & Physical I have noted the following changes of clinical significance: no changes noted
[2025-01-21] MEDS: LACTATED RINGER'S 1,000 ML IV SCH (09:32)
[2025-01-21] MEDS ORDERED: ATROPINE SULFATE 0.1 MG/ML 10ML SYR IV PRN (09:39)
[2025-01-21] MEDS ORDERED: KETOROLAC 30 MG/ML VIAL IV PRN (09:39)
[2025-01-21] MEDS ORDERED: HYDROmorphone INJ 1 MG/ML SYRINGE IV PRN (09:39)
[2025-01-21] MEDS ORDERED: PHENYLEPHRINE 100MCG/ML 5ML SYR ONE (10:06)
[2025-01-21] MEDS ORDERED: HYDROmorphone INJ 1 MG/ML SYRINGE ONE (10:15)
[2025-01-21] MEDS: BUPIVACAINE/EPINEPHRINE 0.5% MPF 1:200,000 30 ML VIAL ONE (10:36)
--- NOTE | 2025-01-21 10:40 | Operative Report ---
PG Post Operative Report Pre & Post Diagnosis Operation Date: 01/21/25 09:50 <No data on this case meets the specified criteria> pre operative diagnosis: left lower extremity wound/abcess post operative diagnosis: left lower extremity wound/abcess I identified the patient and participated in the time-out.: Yes Procedure Operation Date: 01/21/25 09:50 <No data on this case meets the specified criteria> Incision and drainage of left lower extremity abcess; sharp debridement of left lower extremity wound to fascia, total area approximately 35 square cm's Surgeon Tony Hui DO Associate Field Service Engineer xuan Pena Estimated Blood Loss 10 Findings Consistent with Post-Op Diagnosis Specimens fluid for gram stain/culture Description of Procedure After informed consent was obtained the patient was taken to the operating room and placed in supine position. After successful placement of a laryngeal mask airway the left lower extremity was sterilely prepped and draped in usual fashi on. I began by the domitila some tissue overlying the wound. Once I did this we immediately encountered some purulent drainage which we manually expressed. A sample fluid was taken and sent for Gram stain culture and sensitivity. I continue to extend the incision distally until I entered the formal abscess pocket. Once we did this we would then again manually expressed all of the purulent fluid. There was some necrotic tissue on the periphery of the wound which included skin and soft tissue which was necrotic. This was sharply debrided using a 15 blade scalpel. Once we were down to nice pink granulation tissue with good blood supply we then thoroughly irrigated both the abscess cavity as well as the wound. Wound itself measured approximately 8.5 cm x 4.5 cm. After irrigating the wound we then placed Xeroform into the wound cavity covered with gauze followed by gauze Dariusz. The patient was awakened extubated and transferred recovery in stable condition. My physician anatomic pathology assistant was present the entire case was instrumental in helping to prep the patient, assist with exposure for the procedure, and dressing placement. I attest to the content of the Intraoperative Record and any orders documented therein. Any exceptions are noted below.
--- NOTE | 2025-01-21 12:16 | Anesthesiology Progress Note ---
Date of Service January 21, 2025 Anesthesia Post Procedure Vital Signs Vital Signs: Temp Pulse Pulse Pulse Resp BP BP 01/21/25 11:30 36.5 C 98 H 14 111/84 01/21/25 11:20 106 H 16 103/79 01/21/25 11:10 103 H 13 123/88 01/21/25 11:00 104 H 18 121/94 01/21/25 10:50 85 21 117/86 01/21/25 10:44 36.0 C L 108 H 22 115/88 01/21/25 09:23 36.5 C 92 H 16 118/71 01/21/25 08:15 01/21/25 08:11 36.7 C 96 H 18 122/71 01/21/25 07:00 81 01/21/25 03:33 36.7 C 100 H 18 112/72 01/20/25 23:52 36.7 C 101 H 18 126/76 01/20/25 22:10 132 H 01/20/25 21:00 01/20/25 20:27 36.4 C L 116 H 18 118/74 01/20/25 17:00 Pulse Ox Pulse Ox O2 Del Method O2 Del Method O2 Flow Rate 01/21/25 11:30 94 Room Air 01/21/25 11:20 94 Room Air 01/21/25 11:10 93 Room Air 01/21/25 11:00 99 Room Air 01/21/25 10:50 100 Oxymask 8 01/21/25 10:44 98 Oxymask 8 01/21/25 09:23 95 Room Air 01/21/25 08:15 Room Air 01/21/25 08:11 96 Room Air 01/21/25 07:00 01/21/25 03:33 96 Room Air 01/20/25 23:52 96 Room Air 01/20/25 22:10 01/20/25 21:00 Room Air 01/20/25 20:27 98 Room Air 01/20/25 17:00 93 Room Air Pain Intensity Generalized: Pain Intensity: 8 Bilateral Leg: Pain Intensity: 10 Left Leg: Pain Intensity: 7 Transfer of Care Handoff Completed per policy Notes Mental Status: alert / awake / arousable Patient Amnestic to Procedure: Yes Nausea / Vomiting: adequately controlled Pain: adequately controlled Airway Patency, RR, SpO2: stable & adequate BP & HR: stable & adequate Hydration State: stable & adequate Anesthetic Complications: no major complications apparent
--- NOTE | 2025-01-21 12:34 | Hospitalist Progress Note ---
Date of Service January 21, 2025 Assessment & Plan (1) Cellulitis of left leg: Plan: Patient is 79-year-old male with PMH HTN, persistent atrial fibrillation anticoagulated on Eliquis, paroxysmal SVT, DM II, chronic anemia, rheumatoid arthritis, leg wounds presented to ER with c/o left leg redness and increased pain x 2 days. On 01/15/25 had presented to wound clinic with new hematoma to left leg and had area I&D. 01/15/25 Wound culture was without growth. In ER afebrile, P: 103, R: 20, BP 105/57, 97% on room air WBC: 12.4, lactate: 2.3, Procalcitonin: 0.1 Tib-fib x-ray: No fracture or osteomyelitis noted Blood cultures pending In ER given Rocephin, vancomycin, gentle IVF ordered Give bolus IVF Zosyn, vancomycin Per chart review pt with history pseudomonas on prior wound cultures Trend lactate Tylenol, oxycodone prn pain. Has buprenorphine patch prescribed but hasn't started using it yet. CT LE obtained to assess for underlying abscess - 1. Left lower leg wound with cellulitis. No fluid collection to suggest abscess. 2. No evidence for o steomyelitis within the left tibia or fibula. Wound nurse consult while inpatient Fall precautions CBC, BMP in am 01/19/2025 General surgery consulted and discussed with at the bedside - will hold Eliquis for now (in case debridement needed) -> 01/20 Pt re-evaluated by surgery again - plan for I&D tmrw 01/21 S/p Incision and drainage of left lower extremity abscess; sharp debridement of left lower extremity wound to fascia, total area approximately 35 square cm's wound cultx obtained in OR - pending #Chronic heart failure with preserved ejection fraction (HFpEF): CXR: Stable moderate cardiomegaly with mild pulmonary vascular congestion Will hold home oral lasix, spironolactone and reassess volume status tomorrow 02/02/2024 echo: EF: 55-60%, mild concentric LVH, moderate aortic valve sclerosis without significant stenosis, mild mitral regurgitation #Atrial fibrillation: History persistent A-Fib Paroxysmal SVT Borderline tachybrady syndrome In ER HR low 100's. Denies CP, SOB, palpitations Monitor on telemetry Continue metoprolol succinate, Eliquis #Diabetes mellitus, type II: A1c: 8.5 on 08/01/24 Hold home metformin Novolog sliding scale per protocol Diabetic diet current A1c 6.5% #COPD (chronic obstructive pulmonary disease): No signs acute exacerbation Continue home inhalers #HLD (hyperlipidemia): Continue rosuvastatin #Rheumatoid arthritis: On Chronic prednisone 5mg daily Continue prednisone Chronic anemia: History B12 deficiency Hb. (baseline appears in 11's) Continue B12 supplement #BPH (benign prostatic hyperplasia): Continue finasteride, tamsulosin DVT Prophylaxis - Eliquis -> on hold for now as in OR today Dispo: telemetry Full Code as per discussion with pt Admission and Anticipated Discharge Date Admission Date: January 17, 2025 Subjective Pt seen in follow up of cellulitis, follows with wound care - referred by wound care to the ER currently on vanco zosyn on admission, blood cultx pending Sitting up in bed in NAD no fever, chills, chest pain, shortness of breath, no abd. pain Seen by surg. team -> now s/p I&D earlier today, pt is feeling well after procedure Review of Systems Review of Systems: All systems reviewed & are unremarkable except as noted in Subjective Physical Exam Physical Exam: General: no acute distress, WDWN elderly male Head: normocephalic, atraumatic Eyes: conjunctiva non-injected, anicteric ENT: normal inspection external ears, nose, mucous membranes moist Neck: supple Lungs: no respiratory distress, +slight rales at bases bilaterally, no wheezing/rhonchi CV: irregularly irregular Abd: normal BS, soft, non-tender Ext: RLE: scars noted. +diffuse tender to palpation (pt reports chronic). LLE: in surgical dressings now (s/p I&D in OR), nontender Neuro: A&O x 3, no focal deficits noted, normal affect Skin: as above in extremities. +scattered ecchymosis to extremities. warm, dry Results & Data Results & Data Vital Signs (Past 12 Hours) Vital Signs Temp Pulse Pulse Pulse Resp BP BP 01/21/25 11:30 36.5 C 98 H 14 111/84 01/21/25 11:20 106 H 16 103/79 01/21/25 11:10 103 H 13 123/88 01/21/25 11:00 104 H 18 121/94 01/21/25 10:50 85 21 117/86 01/21/25 10:44 36.0 C L 108 H 22 115/88 01/21/25 09:23 36.5 C 92 H 16 118/71 01/21/25 08:15 01/21/25 08:11 36.7 C 96 H 18 122/71 01/21/25 07:00 81 01/21/25 03:33 36.7 C 100 H 18 112/72 Pulse Ox O2 Del Method O2 Flow Rate 01/21/25 11:30 94 Room Air 01/21/25 11:20 94 Room Air 01/21/25 11:10 93 Room Air 01/21/25 11:00 99 Room Air 01/21/25 10:50 100 Oxymask 8 01/21/25 10:44 98 Oxymask 8 01/21/25 09:23 95 Room Air 01/21/25 08:15 Room Air 01/21/25 08:11 96 Room Air 01/21/25 07:00 01/21/25 03:33 96 Room Air Laboratory Results 01/21/25 01/21/25 01/21/25 Range/Units 11:48 08:25 06:22 POC Glucose 97 100 H 83 (70-99) mg/dl 01/20/25 01/20/25 Range/Units 21:11 17:13 POC Glucose 111 H 213 H (70-99) mg/dl Medications Administered Current Inpatient Medications Acetaminophen (Acetaminophen 325 Mg Tab) 650 mg PO Q4H PRN PRN Reason: Pain or Fever Stop: 02/16/25 17:05 Last Admin: 01/19/25 11:05 Dose: 650 mg Apixaban (Apixaban 5 Mg Tablet) 5 mg PO BID [facility] Stop: 02/16/25 20:59 Last Admin: 01/19/25 08:40 Dose: 5 mg Cyanocobalamin (Cyanocobalamin (B-12) 500 Mcg Tablet) 1,000 mcg PO DAILY STEPHEN Stop: 02/17/25 08:59 Last Admin: 01/21/25 08:34 Dose: 1,000 mcg Dextrose (Dextrose 50% 50 Ml Syringe) 25 - 50 ml IV UD PRN; Protocol PRN Reason: Hypoglycemia Protocol Stop: 02/16/25 17:05 Finasteride (Finasteride 5 Mg Tab) 5 mg PO DAILY [facility] Stop: 02/17/25 08:59 Last Admin: 01/21/25 08:34 Dose: 5 mg Fluticasone/Vilanterol (Fluticasone/Vilanterol 200/25mcg 14 Puffs/Inhaler) 1 puffs INH DAILY STEPHEN Stop: 02/17/25 08:59 Last Admin: 01/21/25 08:34 Dose: 1 puffs Gabapentin (Gabapentin 300 Mg Cap) 300 mg PO BID STEPHEN Stop: 02/16/25 20:59 Last Admin: 01/21/25 08:34 Dose: 300 mg Glucagon (Glucagon For Inj 1 Mg Vial) 1 mg SQ UD PRN; Protocol PRN Reason: Hypoglycemia Protocol Stop: 02/16/25 17:05 Glucose (Glucose 40% Gel 15 Gm Tube) 15 - 30 gm PO UD PRN; Protocol PRN Reason: Hypoglycemia Protocol Stop: 02/16/25 17:05 Glucose (Glucose 10 Tab/Tube) 4 - 8 tab PO UD PRN; Protocol PRN Reason: Hypoglycemia Protocol Stop: 02/16/25 17:05 Piperacillin Sod/Tazobactam Sod (Zosyn) 4.5 gm in 100 mls @ 25 mls/hr IV Q8H [facility]; Protocol Stop: 01/25/25 03:59 Last Admin: 01/21/25 11:56 Dose: 25 mls/hr Vancomycin HCl 1,500 mg/ (Sodium Chloride) 530 mls @ 200 mls/hr IV Q24H [facility] Stop: 01/25/25 03:59 Last Infusion: 01/21/25 07:22 Dose: Infused Dextrose/Sodium Chloride (For D5w And Nss) 1,000 mls @ 75 mls/hr IV .[id number] [facility] Stop: 01/22/25 06:44 Last Infusion: 01/21/25 11:57 Dose: 75 mls/hr Insulin Aspart (Insulin Aspart Per Unit Charge) 0 units SC ACHS [facility] Stop: 02/16/25 17:05 Last Admin: 01/21/25 08:45 Dose: Not Given Metoprolol Succinate (Metoprolol Succ 50mg Ext Rel Tab) 50 mg PO BID [facility] Stop: 02/16/25 20:59 Last Admin: 01/21/25 08:34 Dose: 50 mg Miscellaneous (Carbohydrates For Hypoglycemia ) 15 - 30 gm PO UD PRN PRN Reason: Hypoglycemia Protocol Stop: 02/16/25 17:05 Miscellaneous Information (Vancomycin Consult Active) 1 each N/A UD PRN PRN Reason: Consult Stop: 02/16/25 17:05 Ondansetron HCl (Ondansetron Inj 2 Mg/Ml 2 Ml Vial) 4 mg IV Q6H PRN PRN Reason: Nausea Stop: 02/16/25 17:05 Oxycodone HCl (Oxycodone Hcl Ir 5 Mg Tab (Immediate Release)) 5 mg PO Q4H PRN PRN Reason: Severe Pain (Scale 7, 8, 9,10) Stop: 01/31/25 17:05 Last Admin: 01/21/25 08:43 Dose: 5 mg Pantoprazole Sodium (Pantoprazole 40 Mg Tab) 40 mg PO QAM [facility] Stop: 02/17/25 08:59 Last Admin: 01/21/25 08:34 Dose: 40 mg Polyethylene Glycol (Polyethylene (Miralax) 17 Gm Pack) 17 gm PO DAILY PRN PRN Reason: Constipation Stop: 02/16/25 17:05 Prednisone (Prednisone 5 Mg Tab) 5 mg PO DAILY [facility] Stop: 02/17/25 08:59 Last Admin: 01/21/25 08:34 Dose: 5 mg Rosuvastatin Calcium (Rosuvastatin Calcium 20 Mg Tab) 20 mg PO QAM [facility] Stop: 02/17/25 08:59 Last Admin: 01/21/25 08:34 Dose: 20 mg Tamsulosin HCl (Tamsulosin Hcl 0.4 Mg Cap) 0.4 mg PO DAILY [facility] Stop: 02/17/25 08:59 Last Admin: 01/21/25 08:34 Dose: 0.4 mg Vitamin D (Cholecalciferol 25 Mcg (1000 Units) Tab) 50 mcg PO DAILY [facility] Stop: 02/17/25 08:59 Last Admin: 01/21/25 08:34 Dose: 50 mcg
[2025-01-21 13:01] LABS: Hematocrit (blood only) 28.9 % (42.0-52.0); Hemoglobin 9.4 g/dl (14.0-18.0); Mean Corpuscular Hemoglobin 32.8 pg (25.0-34.0); Mean Corpuscular Hgb Conc 32.5 g/dL (32.0-36.0); Mean Corpuscular Volume 100.7 fL (80.0-100.0); Mean Platelet Volume 11.2 fL (9.4-12.4); Platelet Count 182 K/uL (130-400); RDW Coefficient of Variation 16.4 % (11.5-14.5); RDW Standard Deviation 60.6 fL (36.4-46.3); Red Blood Count 2.87 M/uL (4.70-6.10); White Blood Count 9.03 K/ul (4.8-10.8)
[2025-01-21 13:12] LABS: Calcium 8.4 mg/dl (8.6-10.3); Magnesium 2.2 mg/dl (1.7-2.4); Potassium 3.9 mmol/L (3.5-5.1)
[2025-01-21 13:17] LABS: Creatinine Clr Calc Pharmacy 61.5 ml/min; Phosphorus 2.7 mg/dl (2.5-4.9)
--- NOTE | 2025-01-22 08:12 | Surgery Progress Note ---
Date of Service January 22, 2025 Assessment & Plan (1) Traumatic hematoma of left lower leg: Plan: POD#1 I&D of left lower extremity WBC 7.8, Hbg 9.1 He reports improvement in leg pain Leg currently dressed with surgical dressing, serosang drainage seeping through kerlex otherwise intact Will allow wound care to eval wound today for further dressing recommendations Recommend follow up in the wound care center upon dispo, he is well known to them We will follow from the periphery but call if any questions/concerns Admission and Anticipated Discharge Date Admission Date: January 17, 2025 Subjective Patient reports feeling well. No complaints with leg currently, said he felt like it was swollen post op, but now its improved. Physical Exam Physical Exam: awake, no distress Skin: Left leg surgical dressing remains in tact, some serous drainage seeping through kerlex noted Results & Data Vital Signs (Past 12 Hours) Vital Signs Temp Pulse Pulse Resp BP BP Pulse Ox 01/22/25 07:42 97.3 F L 110 H 20 144/86 H 94 01/22/25 07:00 94 H 01/22/25 02:35 97.7 F 84 16 110/74 97 01/21/25 22:07 97.5 F L 99 H 18 109/76 99 01/21/25 21:50 94 H O2 Del Method 01/22/25 07:42 Nasal Cannula 01/22/25 07:00 01/22/25 02:35 Room Air 01/21/25 22:07 Room Air 01/21/25 21:50 PG Care Time/CCT Total # of Minutes Spent Total Time Spent with Patient: Total time spent is greater than 50% in coordination of care (as documented) at patient's floor/unit and/or counseling patient: Coding Level of Care Code 06111 Post Operative Follow-Up Diagnoses Traumatic hematoma of left lower leg, subsequent encounter S80.12XD Encounter type: subsequent encounter (1) Traumatic hematoma of left lower leg Encounter type: subsequent encounter Qualified Code(s): S80.12XD - Contusion of left lower leg, subsequent encounter
[2025-01-22 09:20] LABS: Hematocrit (blood only) 27.5 % (42.0-52.0); Hemoglobin 9.1 g/dl (14.0-18.0); Mean Corpuscular Hgb Conc 33.1 g/dL (32.0-36.0); Mean Corpuscular Volume 99.6 fL (80.0-100.0); Mean Platelet Volume 10.8 fL (9.4-12.4); Platelet Count 174 K/uL (130-400); RDW Coefficient of Variation 16.5 % (11.5-14.5); RDW Standard Deviation 59.7 fL (36.4-46.3); Red Blood Count 2.76 M/uL (4.70-6.10); White Blood Count 7.89 K/ul (4.8-10.8)
[2025-01-22 09:43] LABS: Calcium 8.2 mg/dl (8.6-10.3); Magnesium 2.2 mg/dl (1.7-2.4); Potassium 3.6 mmol/L (3.5-5.1)
[2025-01-22 09:49] LABS: BUN Creatinine Ratio 14.5 (10-20); Creatinine Clr Calc Pharmacy 57.2 ml/min; Phosphorus 2.5 mg/dl (2.5-4.9)
--- NOTE | 2025-01-22 11:34 | Hospitalist Progress Note ---
Date of Service January 22, 2025 Assessment & Plan (1) Cellulitis of left leg: Plan: Patient is 79-year-old male with PMH HTN, persistent atrial fibrillation anticoagulated on Eliquis, paroxysmal SVT, DM II, chronic anemia, rheumatoid arthritis, leg wounds presented to ER with c/o left leg redness and increased pain x 2 days. Cellulitis On 01/15/25 had presented to wound clinic with new hematoma to left leg and had area I&D. 01/15/25 Wound culture was without growth. In ER afebrile, P: 103, R: 20, BP 105/57, 97% on room air WBC: 12.4, lactate: 2.3, Procalcitonin: 0.1 Tib-fib x-ray: No fracture or osteomyelitis noted Blood cultures NGTD In ER given Rocephin, vancomycin, gentle IVF ordered Zosyn, vancomycin Per chart review pt with history pseudomonas on prior wound cultures Tylenol, oxycodone prn pain. Has buprenorphine patch prescribed but hasn't started using it yet. CT LE Wound nurse consult while inpatient Fall precautions General Surgery consulted, appreciate recs -s/p I and D on 01/21 wound cultx obtained in OR - pending Chronic heart failure with preserved ejection fraction (HFpEF) CXR: Stable moderate cardiomegaly with mild pulmonary vascular congestion Will hold home oral lasix, spironolactone and reassess volume status tomorrow 02/02/2024 echo: EF: 55-60%, mild concentric LVH, moderate aortic valve sclerosis without significant stenosis, mild mitral regurgitation Atrial fibrillation History persistent A-Fib Paroxysmal SVT Borderline tachybrady syndrome In ER HR low 100's. Denies CP, SOB, palpitations Monitor on telemetry Continue metoprolol succinate, Eliquis currently on hold, resume in AM Diabetes mellitus, type II A1c: 8.5 on 08/01/24 Hold home metformin Novolog sliding scale per protocol Diabetic diet current A1c 6.5% COPD (chronic obstructive pulmonary disease) No signs acute exacerbation Continue home inhalers HLD (hyperlipidemia) Continue rosuvastatin Rheumatoid arthritis On Chronic prednisone 5mg daily Continue prednisone Chronic anemia History B12 deficiency Hb. (baseline appears in 11's) Continue B12 supplement BPH (benign prostatic hyperplasia) Continue finasteride, tamsulosin DVT Prophylaxis - Eliquis -> on hold for now, resume in AM Dispo: telemetry Full Code as per discussion with pt Admission and Anticipated Discharge Date Admission Date: January 17, 2025 Subjective pt was seen sitting at the side of his bed Denied acute concerns post op Review of Systems Review of Systems: All systems reviewed & are unremarkable except as noted in Subjective Physical Exam Physical Exam: General: Alert, oriented. No acute distress Skin:RLE swollen, bruising noted. LLE wrapped HEENT: NC/AT CV: irregular Resp: Breath sounds clear bilaterally, no increased effort of breathing Abdomen: Soft, nontender Extremities: No edema in lower extremities bilaterally. Results & Data Results & Data Vital Signs (Past 12 Hours) Vital Signs Temp Pulse Pulse Pulse Resp BP BP 01/22/25 11:26 36.3 C L 72 17 106/70 01/22/25 07:45 01/22/25 07:42 36.3 C L 110 H 20 144/86 H 01/22/25 07:00 94 H 01/22/25 02:35 36.5 C 84 16 110/74 Pulse Ox O2 Del Method 01/22/25 11:26 94 Room Air 01/22/25 07:45 Room Air 01/22/25 07:42 94 Nasal Cannula 01/22/25 07:00 01/22/25 02:35 97 Room Air
[2025-01-23 05:02] LABS: Basophils # (auto) 0.04 K/uL (0.00-0.20); Basophils % (auto) 0.5 %; Eosinophils # (auto) 0.07 K/uL (0.00-0.50); Eosinophils % (auto) 0.9 %; Hematocrit (blood only) 27.6 % (42.0-52.0); Hemoglobin 8.8 g/dl (14.0-18.0); Immature Granulocytes # (auto) 0.09 K/uL (0.01-0.20); Immature Granulocytes % (auto) 1.2 %; Lymphocytes # (auto) 0.95 K/uL (1.20-3.40); Lymphocytes % (auto) 12.5 %; Mean Corpuscular Hemoglobin 32.6 pg (25.0-34.0); Mean Corpuscular Hgb Conc 31.9 g/dL (32.0-36.0); Mean Corpuscular Volume 102.2 fL (80.0-100.0); Mean Platelet Volume 11.4 fL (9.4-12.4); Monocytes # (auto) 0.84 K/uL (0.11-0.59); Monocytes % (auto) 11.1 %; Neutrophils # (auto) 5.59 K/uL (1.40-6.50); Neutrophils % (auto) 73.8 %; Platelet Count 189 K/uL (130-400); RDW Coefficient of Variation 16.4 % (11.5-14.5); RDW Standard Deviation 60.6 fL (36.4-46.3); White Blood Count 7.58 K/ul (4.8-10.8)
[2025-01-23 05:24] LABS: Albumin Level 3.5 gm/dl (3.4-5.0); Calcium 8.3 mg/dl (8.6-10.3); Magnesium 2.2 mg/dl (1.7-2.4); Potassium 3.3 mmol/L (3.5-5.1)
[2025-01-23 05:30] LABS: Albumin Globulin Ratio 1.8 (0.9-2); BUN Creatinine Ratio 13.7 (10-20); Creatinine Clr Calc Pharmacy 53.8 ml/min; Phosphorus 2.8 mg/dl (2.5-4.9); Total Protein 5.5 gm/dl (6.0-8.3)
[2025-01-23] MEDS: VANCOMYCIN LEVEL ONE (05:34)
--- NOTE | 2025-01-23 07:48 | Pharmacy Report ---
Pharmacy PK ABX Note - Date of Service January 23, 2025 - Assessment and Plan Assessment 01/23: Reviewed vancomycin level this morning, level therapeutic continue current vancomycin regimen. 01/20: 79 year old M receiving vancomycin and Zosyn for treatment of LLE cellulitis. Blood cultures show no growth at 48 hours. Recent wound cultures from growing Pseudomonas aeruginosa. Renal function stable. Discussed with hospitalist, who would like to maintain broad spectrum coverage at this time. Surgery consulted. Day # 6 of vancomycin therapy. Plan Vancomycin * Current regimen: 1500 mg IV every 24 hours * Trough level obtained 01/23/25 resulted as 13 mcg/mL. This is predicted to achieve target AUC/FRANCISCA of 400-600 mg/L.hr * Predicted AUC at steady state: 507 mg/L.hr * Continue 1500 mg IV every 24 hours * Repeat level in the next 48-72 hours if therapy is continued and/or change in patient clinical status Zosyn * 4.5 g IV q8h - appropriately dosed for indication/renal function Pharmacy will continue to follow and will adjust dose/frequency as necessary. Thank you. Pharmacy has transitioned to AUC monitoring for vancomycin. AUC/FRANCISCA is the preferred PK/PD target and is associated with decreased risk of nephrotoxicity compared to traditional trough targets.
[2025-01-23] MEDS: POTASSIUM CHLORIDE CRTAB 20 MEQ TABCR PO STA (08:42)
--- NOTE | 2025-01-23 11:44 | Hospitalist Progress Note ---
Date of Service January 23, 2025 Assessment & Plan (1) Cellulitis of left leg: Plan: Patient is 79-year-old male with PMH HTN, persistent atrial fibrillation anticoagulated on Eliquis, paroxysmal SVT, DM II, chronic anemia, rheumatoid arthritis, leg wounds presented to ER with c/o left leg redness and increased pain x 2 days. Cellulitis with abscess of LLE On 01/15/25 had presented to wound clinic with new hematoma to left leg and had area I&D. 01/15/25 Wound culture was without growth. In ER afebrile, P: 103, R: 20, BP 105/57, 97% on room air WBC: 12.4, lactate: 2.3, Procalcitonin: 0.1 Tib-fib x-ray: No fracture or osteomyelitis noted Blood cultures NGTD In ER given Rocephin, vancomycin, gentle IVF ordered Zosyn, vancomycin Per chart review pt with history pseudomonas on prior wound cultures Tylenol, oxycodone prn pain. Has buprenorphine patch prescribed but hasn't started using it yet. CT LE Wound nurse consult while inpatient Fall precautions General Surgery consulted, appreciate recs -s/p I and D on 01/21 wound cultx obtained in OR NGTD Possible Sepsis Evening of 01/23 pt cold and shivering Infectious workup repeated with blood cultures, lactate, chest XRAY, UA, procal, labs Vitals stable Added Daptomycin to IV Zosyn Follow labs, workup and culture Atrial fibrillation History persistent A-Fib Paroxysmal SVT Borderline tachybrady syndrome In ER HR low 100's. Denies CP, SOB, palpitations Continue metoprolol succinate, Eliquis per recommendations of surgery on 01.23 to resume 01/23- pt with episode of a fib with RVR, HR in 140s to 150. Trop pending. BP stable, pt given one dose of IV Lopressor 5mg with noted improvement of HR to the one-teens. Continue with qPM Toprol dose increased to 75mg BID. Continue to monitor Chronic heart failure with preserved ejection fraction (HFpEF) CXR: Stable moderate cardiomegaly with mild pulmonary vascular congestion resume home oral lasix spironolactone still on hold, monitor BP and resume as able 02/02/2024 echo: EF: 55-60%, mild concentric LVH, moderate aortic valve sclerosis without significant stenosis, mild mitral regurgitation Hypokalemia replete as needed Diabetes mellitus, type II A1c: 8.5 on 08/01/24 Hold home metformin Novolog sliding scale per protocol Diabetic diet current A1c 6.5% COPD (chronic obstructive pulmonary disease) No signs acute exacerbation Continue home inhalers HLD (hyperlipidemia) Continue rosuvastatin Rheumatoid arthritis On Chronic prednisone 5mg daily Continue prednisone Chronic anemia History B12 deficiency Hb. (baseline appears in 11's) Continue B12 supplement BPH (benign prostatic hyperplasia) Continue finasteride, tamsulosin DVT Prophylaxis - Eliquis -> on hold for now, resume in AM Dispo: telemetry Full Code as per discussion with pt Admission and Anticipated Discharge Date Admission Date: January 17, 2025 Subjective Pt was seen multiple times during the day Initially laying in bed. Denied acute concerns Later called to bedside as pt as shivering. HR sustained in the 150s to 160s He denied any chest pain or SOB, noted he just felt cold Vitals stable. Review of Systems Review of Systems: All systems reviewed & are unremarkable except as noted in Subjective Physical Exam Physical Exam: General: Alert, oriented. No acute distress Skin:RLE swollen, bruising noted. LLE wrapped HEENT: NC/AT CV: irregular Resp: Breath sounds clear bilaterally, no increased effort of breathing Abdomen: Soft, nontender Extremities: No edema in lower extremities bilaterally. Results & Data Results & Data Vital Signs (Past 12 Hours) Vital Signs Temp Pulse Pulse Resp BP Pulse Ox O2 Del Method 01/23/25 11:33 36.7 C 105 H 20 109/76 96 Room Air 01/23/25 09:00 Room Air 01/23/25 07:38 36.4 C L 106 H 20 141/88 H 97 Room Air 01/23/25 07:00 83 01/23/25 02:38 36.5 C 77 16 104/77 95 Room Air 01/22/25 23:52 88
[2025-01-23] MEDS: FUROSEMIDE INJ 20 MG/2 ML VIAL IV ONE (12:22)
[2025-01-23] MEDS: METOPROLOL TARTRATE 1 MG/ML VIAL IV STA (18:20)
[2025-01-23] MEDS: DAPTOmycin 500 MG in SYRINGE 0 ML IV ONE (18:41)
[2025-01-23] MEDS: APIXABAN 5 MG TABLET PO SCH (18:41)
--- NOTE | 2025-01-23 19:00 | XRay Report ---
INDICATION: Chest pain. TECHNIQUE: Frontal radiograph of the chest. COMPARISON: Radiograph from 01/17/2025. FINDINGS: Cardiomegaly. Chronic appearing interstitial lung markings. Bilateral lower lobe atelectasis/airspace disease with small pleural effusions, unchanged. No pneumothorax. No acute fracture. IMPRESSION: Bilateral lower lobe atelectasis/airspace disease with small pleural effusions, unchanged. Electronically signed by Curtis Goode 01-23-2025 7:00 PM
[2025-01-23 19:07] LABS: Appearance Urine Clear (Clear); Bilirubin Urine Negative (Negative); Blood Urine Negative (Negative); Color Urine Yellow; Glucose Urine UA Negative (Negative); Ketones Urine Trace (Negative); Leukocyte Esterase Urine Negative (Negative); Nitrite Urine Negative (Negative); Protein Urine Negative (Negative); Specific Gravity Urine 1.019 (1.000-1.030); Urobilinogen Urine Negative (Negative)
[2025-01-23 19:10] LABS: Basophils # (auto) 0.04 K/uL (0.00-0.20); Basophils % (auto) 0.3 %; Eosinophils # (auto) 0.02 K/uL (0.00-0.50); Eosinophils % (auto) 0.1 %; Hematocrit (blood only) 30.1 % (42.0-52.0); Immature Granulocytes # (auto) 0.11 K/uL (0.01-0.20); Immature Granulocytes % (auto) 0.8 %; Lymphocytes # (auto) 1.03 K/uL (1.20-3.40); Lymphocytes % (auto) 7.1 %; Mean Corpuscular Hgb Conc 33.2 g/dL (32.0-36.0); Mean Corpuscular Volume 99.3 fL (80.0-100.0); Monocytes # (auto) 1.06 K/uL (0.11-0.59); Monocytes % (auto) 7.3 %; Neutrophils # (auto) 12.18 K/uL (1.40-6.50); Neutrophils % (auto) 84.4 %; Nucleated RBC # (auto) 0.02 K/uL (0.00-0.12); Nucleated RBC % (auto) 0.1 %; Platelet Count 241 K/uL (130-400); RDW Coefficient of Variation 16.5 % (11.5-14.5); RDW Standard Deviation 59.3 fL (36.4-46.3); Red Blood Count 3.03 M/uL (4.70-6.10); White Blood Count 14.44 K/ul (4.8-10.8)
[2025-01-23 19:30] LABS: Albumin Globulin Ratio 1.8 (0.9-2); Albumin Level 4.2 gm/dl (3.4-5.0); BUN Creatinine Ratio 11.7 (10-20); Bilirubin,Total 1.3 mg/dl (0.2-1.0); Calcium 8.7 mg/dl (8.6-10.3); Creatinine Clr Calc Pharmacy 52.8 ml/min; Globulin 2.4 gm/dl (2.5-4.0); Magnesium 2.1 mg/dl (1.7-2.4); Phosphorus 2.5 mg/dl (2.5-4.9); Potassium 3.7 mmol/L (3.5-5.1); Total Protein 6.6 gm/dl (6.0-8.3)
[2025-01-23 19:47] LABS: D Dimer 1700 ug/L FEU (0-500)
[2025-01-23] MEDS: METOPROLOL SUCC 25MG EXT REL TAB PO SCH (20:13)
[2025-01-23] MEDS: POTASSIUM CHLORIDE 20 MEQ in LACTATED RINGER'S 1,000 ML IV ONE (20:13)
--- NOTE | 2025-01-23 23:13 | CT Scan Report ---
Exam(s): CTA CHEST IV Amt: 119ml optiray 320 EXAM: CT Angiography Chest With Intravenous Contrast CLINICAL HISTORY: Reason for exam: tachy, abn dimer. TECHNIQUE: Axial computed tomographic angiography images of the chest with intravenous contrast. CTDI is 40 mGy and DLP is 870 mGy-cm. Automated exposure control was utilized for the study. A dose lowering technique was utilized adhering to the principles of ALARA. MIP reconstructed images were created and reviewed. 119 ML Optiray 320 given IV, with minimal aortic and pulmonary arterial contrast, significantly limiting evaluation. Moderate breathing motion artifact. COMPARISON: CTA chest 05/10/24. FINDINGS: Pulmonary arteries: No large or central pulmonary embolism. Nondiagnostic evaluation for mid, small or peripheral disease due to suboptimal bolus. Stable vascular prominence. Aorta: Mild atherosclerosis. No aneurysm. Lungs: Stable interstitial prominence. No consolidation. Pleural space: Stable pleural thickening and calcifications slight progressive left pleural effusion, predominantly loculated in the upper lung and fissure. No pneumothorax. Heart: Stable, moderate cardiomegaly. No significant pericardial effusion. No evidence of elevated right heart pressures. Bones/joints: No acute fracture. Soft tissues: Stable hepatic and splenic granulomata and small cystic appearing lesion along the anterior liver capsule. Lymph nodes: No enlarged lymph nodes. IMPRESSION: 1. No large/central pulmonary embolism, with significant limited evaluation due to suboptimal bolus. 2. Stable cardiomegaly, vascular and interstitial prominence, and slight progressive left pleural effusion, nonspecific, may be chronic. Cannot rule out mild CHF or pneumonia. Electronically signed by: Kenya Dinh M.D. 01/23/25 23:13 PM
[2025-01-23] MEDS: OPTIRAY 320 125ml IV ONE (23:20)
[2025-01-23] MEDS: LACTATED RINGER'S 1,000 ML IV ONE (23:25)
[2025-01-23 23:30] LABS: Partial Thromboplastin Ratio 1.5; Partial Thromboplastin Time 40 Seconds (21-31)
[2025-01-24] MEDS: ALBUMIN 25% 25 GM/100 ML VIAL IV ONE ×2 (00:22→13:28)
[2025-01-24 04:51] LABS: Basophils # (auto) 0.03 K/uL (0.00-0.20); Basophils % (auto) 0.3 %; Eosinophils # (auto) 0.05 K/uL (0.00-0.50); Eosinophils % (auto) 0.6 %; Hematocrit (blood only) 27.4 % (42.0-52.0); Hemoglobin 8.9 g/dl (14.0-18.0); Immature Granulocytes # (auto) 0.06 K/uL (0.01-0.20); Immature Granulocytes % (auto) 0.7 %; Lymphocytes # (auto) 1.07 K/uL (1.20-3.40); Lymphocytes % (auto) 11.8 %; Mean Corpuscular Hemoglobin 33.1 pg (25.0-34.0); Mean Corpuscular Hgb Conc 32.5 g/dL (32.0-36.0); Mean Corpuscular Volume 101.9 fL (80.0-100.0); Monocytes # (auto) 0.81 K/uL (0.11-0.59); Neutrophils # (auto) 7.01 K/uL (1.40-6.50); Neutrophils % (auto) 77.6 %; Nucleated RBC # (auto) 0.02 K/uL (0.00-0.12); Nucleated RBC % (auto) 0.2 %; Platelet Count 211 K/uL (130-400); RDW Coefficient of Variation 16.8 % (11.5-14.5); RDW Standard Deviation 60.7 fL (36.4-46.3); Red Blood Count 2.69 M/uL (4.70-6.10); White Blood Count 9.03 K/ul (4.8-10.8)
[2025-01-24 05:13] LABS: Alanine Aminotransferase 15 U/L (7-52); Albumin Globulin Ratio 1.7 (0.9-2); Albumin Level 3.7 gm/dl (3.4-5.0); Alkaline Phosphatase 39 U/L (34-104); Anion Gap 6 (3-11); BUN Creatinine Ratio 11.5 (10-20); Blood Urea Nitrogen 13 mg/dl (6-23); Calcium 8.3 mg/dl (8.6-10.3); Carbon Dioxide 23 mmol/L (21-32); Chloride 105 mmol/L (98-107); Globulin 2.2 gm/dl (2.5-4.0); Glucose 107 mg/dl (70-99(Fasting)); Magnesium 2.2 mg/dl (1.7-2.4); Phosphorus 3.1 mg/dl (2.5-4.9); Sodium 134 mmol/L (136-145); Total Protein 5.9 gm/dl (6.0-8.3)
[2025-01-24 06:55] LABS: Potassium 3.3 mmol/L (3.5-5.1)
--- NOTE | 2025-01-24 08:16 | Hospitalist Progress Note ---
Date of Service January 24, 2025 Assessment & Plan (1) Cellulitis of left leg: Plan Patient is 79-year-old male with PMH HTN, persistent atrial fibrillation anticoagulated on Eliquis, paroxysmal SVT, DM II, chronic anemia, rheumatoid arthritis, leg wounds presented to ER with c/o left leg redness and increased pain x 2 days. Cellulitis with abscess of LLE On 01/15/25 had presented to wound clinic with new hematoma to left leg and had area I&D. 01/15/25 Wound culture was without growth. In ER afebrile, P: 103, R: 20, BP 105/57, 97% on room air WBC: 12.4, lactate: 2.3, Procalcitonin: 0.1 Tib-fib x-ray: No fracture or osteomyelitis noted Blood cultures NGTD In ER given Rocephin, vancomycin, gentle IVF ordered Treated with Zosyn, vancomycin- vancomycin later switched to Daptomycin Per chart review pt with history pseudomonas on prior wound cultures Tylenol, oxycodone prn pain. Has buprenorphine patch prescribed but hasn't started using it yet. CT LE concerning for cellulitis, no evidence of osteomyelitis Wound nurse consult while inpatient Fall precautions General Surgery consulted, appreciate recs -s/p I and D on 01/21 wound cultx obtained in OR NGTD Possible Sepsis Evening of 01/23 pt cold and shivering Infectious workup repeated with blood cultures, lactate, chest XRAY, UA, procal, labs Vitals stable Added Daptomycin to IV Zosyn Follow labs, workup and culture Atrial fibrillation History persistent A-Fib Paroxysmal SVT Borderline tachybrady syndrome In ER HR low 100's. Denies CP, SOB, palpitations Continue metoprolol succinate, Eliquis per recommendations of surgery on 01.23 to resume 01/23- pt with episode of a fib with RVR, HR in 140s to 150. Trop pending. BP stable, pt given one dose of IV Lopressor 5mg with noted improvement of HR to the one-teens. Continue with qPM Toprol dose increased to 75mg BID. Continue to monitor 01/24- improved Chronic heart failure with preserved ejection fraction (HFpEF) CXR: Stable moderate cardiomegaly with mild pulmonary vascular congestion resume home oral lasix spironolactone still on hold, monitor BP and resume as able 02/02/2024 echo: EF: 55-60%, mild concentric LVH, moderate aortic valve sclerosis without significant stenosis, mild mitral regurgitation Hypokalemia replete as needed Diabetes mellitus, type II A1c: 8.5 on 08/01/24 Hold home metformin Novolog sliding scale per protocol Diabetic diet current A1c 6.5% COPD (chronic obstructive pulmonary disease) No signs acute exacerbation Continue home inhalers HLD (hyperlipidemia) Continue rosuvastatin Rheumatoid arthritis On Chronic prednisone 5mg daily Continue prednisone Chronic anemia History B12 deficiency Hb. (baseline appears in 11's) Continue B12 supplement BPH (benign prostatic hyperplasia) Continue finasteride, tamsulosin DVT Prophylaxis - Eliquis -> on hold for now, resume in AM Dispo: telemetry Full Code as per discussion with pt Admission and Anticipated Discharge Date Admission Date: January 17, 2025 Subjective Pt was seen in the AM Stated that he was feeling better from yesterday but still not back to baseline. Denied chest pain, SOB, palpitations Review of Systems Review of Systems: All systems reviewed & are unremarkable except as noted in Subjective Physical Exam Physical Exam: General: Alert, oriented. No acute distress Skin:RLE swollen, bruising noted. LLE wrapped HEENT: NC/AT CV: irregular Resp: Breath sounds clear bilaterally, no increased effort of breathing Abdomen: Soft, nontender Extremities: No edema in lower extremities bilaterally. Results & Data Results & Data Vital Signs (Past 12 Hours) Vital Signs Temp Pulse Pulse Resp BP Pulse Ox O2 Del Method 01/24/25 08:08 36.4 C L 106 H 20 126/62 95 Room Air 01/24/25 05:51 70 01/24/25 03:41 36.4 C L 74 18 119/71 97 Room Air 01/23/25 23:05 36.4 C L 97 H 18 100/67 98 Room Air 01/23/25 23:00 Room Air
[2025-01-24] MEDS: POTASSIUM CHLORIDE CRTAB 20 MEQ TABCR PO STA (08:25)
--- NOTE | 2025-01-24 14:19 | Electrocardiogram Report ---
Test Reason : Blood Pressure : */* mmHG Vent. Rate : 133 BPM Atrial Rate : 144 BPM P-R Int : * ms QRS Dur : 64 ms QT Int : 252 ms P-R-T Axes : * 30 198 degrees QTcB Int : 375 ms Poor data quality, interpretation may be adversely affected Atrial fibrillation with rapid ventricular response Low voltage QRS Abnormal ECG When compared with ECG of 31-Jul-2024 10:32, Vent. rate has increased by [address] now depressed in Anterior leads T wave inversion now evident in Anterolateral leads Confirmed by Dain Jules ([id number]) on 01/24/2025 2:19:07 PM Referred By: REFERRED SELF Confirmed By: Dain Jules
[2025-01-25 07:00] LABS: Basophils # (auto) 0.06 K/uL (0.00-0.20); Basophils % (auto) 0.6 %; Eosinophils # (auto) 0.07 K/uL (0.00-0.50); Eosinophils % (auto) 0.7 %; Hematocrit (blood only) 27.6 % (42.0-52.0); Hemoglobin 8.9 g/dl (14.0-18.0); Immature Granulocytes # (auto) 0.09 K/uL (0.01-0.20); Immature Granulocytes % (auto) 0.9 %; Lymphocytes # (auto) 1.23 K/uL (1.20-3.40); Lymphocytes % (auto) 12.8 %; Mean Corpuscular Hemoglobin 32.7 pg (25.0-34.0); Mean Corpuscular Hgb Conc 32.2 g/dL (32.0-36.0); Mean Corpuscular Volume 101.5 fL (80.0-100.0); Mean Platelet Volume 10.9 fL (9.4-12.4); Monocytes # (auto) 0.91 K/uL (0.11-0.59); Monocytes % (auto) 9.4 %; Neutrophils # (auto) 7.27 K/uL (1.40-6.50); Neutrophils % (auto) 75.6 %; Nucleated RBC # (auto) 0.02 K/uL (0.00-0.12); Nucleated RBC % (auto) 0.2 %; Platelet Count 212 K/uL (130-400); RDW Coefficient of Variation 16.8 % (11.5-14.5); RDW Standard Deviation 61.1 fL (36.4-46.3); Red Blood Count 2.72 M/uL (4.70-6.10); White Blood Count 9.63 K/ul (4.8-10.8)
[2025-01-25 07:24] LABS: Albumin Globulin Ratio 1.8 (0.9-2); Albumin Level 3.8 gm/dl (3.4-5.0); BUN Creatinine Ratio 12.3 (10-20); Bilirubin,Total 1.2 mg/dl (0.2-1.0); Calcium 8.8 mg/dl (8.6-10.3); Creatinine Clr Calc Pharmacy 60.5 ml/min; Globulin 2.1 gm/dl (2.5-4.0); Magnesium 2.1 mg/dl (1.7-2.4); Phosphorus 2.6 mg/dl (2.5-4.9); Potassium 3.5 mmol/L (3.5-5.1); Total Protein 5.9 gm/dl (6.0-8.3)
[2025-01-25] MEDS: DAPTOmycin 600 MG in SYRINGE 0 ML IV SCH (09:55)
[2025-01-25] MEDS: FUROSEMIDE 20 MG TAB PO SCH (10:00)
--- NOTE | 2025-01-25 15:29 | Hospitalist Progress Note ---
Date of Service January 25, 2025 Assessment & Plan (1) Cellulitis of left leg: Plan Patient is 79-year-old male with PMH HTN, persistent atrial fibrillation anticoagulated on Eliquis, paroxysmal SVT, DM II, chronic anemia, rheumatoid arthritis, leg wounds presented to ER with c/o left leg redness and increased pain x 2 days. Cellulitis with abscess of LLE On 01/15/25 had presented to wound clinic with new hematoma to left leg and had area I&D. 01/15/25 Wound culture was without growth. In ER afebrile, P: 103, R: 20, BP 105/57, 97% on room air WBC: 12.4, lactate: 2.3, Procalcitonin: 0.1 Tib-fib x-ray: No fracture or osteomyelitis noted Blood cultures NGTD In ER given Rocephin, vancomycin, gentle IVF ordered Treated with Zosyn, vancomycin- vancomycin later switched to Daptomycin Per chart review pt with history pseudomonas on prior wound cultures Tylenol, oxycodone prn pain. Has buprenorphine patch prescribed but hasn't started using it yet. CT LE concerning for cellulitis, no evidence of osteomyelitis Wound nurse consult while inpatient Fall precautions General Surgery consulted, appreciate recs -s/p I and D on 01/21 wound cultx obtained in OR NGTD Possible Sepsis Evening of 01/23 pt cold and shivering Infectious workup repeated with blood cultures, lactate, chest XRAY, UA, procal, labs Vitals stable Added Daptomycin to IV Zosyn, Vancomycin discontineud Follow labs, workup and culture Atrial fibrillation History persistent A-Fib Paroxysmal SVT Borderline tachybrady syndrome In ER HR low 100's. Denies CP, SOB, palpitations Continue metoprolol succinate, Eliquis per recommendations of surgery on 01.23 to resume 01/23- pt with episode of a fib with RVR, HR in 140s to 150. Trop pending. BP stable, pt given one dose of IV Lopressor 5mg with noted improvement of HR to the one-teens. Continue with qPM Toprol dose increased to 75mg BID. Continue to monitor 01/24- improved Chronic heart failure with preserved ejection fraction (HFpEF) CXR: Stable moderate cardiomegaly with mild pulmonary vascular congestion resume home oral lasix spironolactone still on hold, monitor BP and resume as able 02/02/2024 echo: EF: 55-60%, mild concentric LVH, moderate aortic valve sclerosis without significant stenosis, mild mitral regurgitation Hypokalemia replete as needed Diabetes mellitus, type II A1c: 8.5 on 08/01/24 Hold home metformin Novolog sliding scale per protocol Diabetic diet current A1c 6.5% COPD (chronic obstructive pulmonary disease) No signs acute exacerbation Continue home inhalers HLD (hyperlipidemia) Continue rosuvastatin Rheumatoid arthritis On Chronic prednisone 5mg daily Continue prednisone Chronic anemia History B12 deficiency Hb. (baseline appears in 11's) Continue B12 supplement BPH (benign prostatic hyperplasia) Continue finasteride, tamsulosin DVT Prophylaxis - Eliquis -> on hold for now, resume in AM Dispo: telemetry Full Code as per discussion with pt Admission and Anticipated Discharge Date Admission Date: January 17, 2025 Subjective Pt was seen in the AM Stated that he was feeling better from yesterday but still not back to baseline. Denied chest pain, SOB, palpitations, no acute events overnight Pt's sister Bernice requesting update, with pt's permission she was called and update provided Review of Systems Review of Systems: All systems reviewed & are unremarkable except as noted in Subjective Results & Data Results & Data Vital Signs (Past 12 Hours) Vital Signs Temp Pulse Pulse Pulse Resp BP Pulse Ox 01/25/25 13:32 95 H 01/25/25 11:22 36.6 C 80 18 119/76 94 01/25/25 07:27 36.4 C L 77 18 112/74 94 01/25/25 03:39 36.4 C L 105 H 18 101/61 94 O2 Del Method 01/25/25 13:32 01/25/25 11:22 Room Air 01/25/25 07:27 Room Air 01/25/25 03:39 Room Air
[2025-01-25] MEDS: PIPERACILLIN/TAZOBACTAM 4.5 GM/100 ML BAG IV STA (17:32)
[2025-01-25] MEDS: PIPERACILLIN/TAZOBACTAM 4.5 GM/100 ML BAG IV SCH (22:26)
[2025-01-26 06:36] LABS: Basophils # (auto) 0.04 K/uL (0.00-0.20); Basophils % (auto) 0.4 %; Eosinophils # (auto) 0.09 K/uL (0.00-0.50); Eosinophils % (auto) 0.9 %; Hematocrit (blood only) 27.4 % (42.0-52.0); Immature Granulocytes # (auto) 0.12 K/uL (0.01-0.20); Immature Granulocytes % (auto) 1.2 %; Lymphocytes # (auto) 1.13 K/uL (1.20-3.40); Lymphocytes % (auto) 11.6 %; Mean Corpuscular Hemoglobin 33.2 pg (25.0-34.0); Mean Corpuscular Hgb Conc 32.8 g/dL (32.0-36.0); Mean Corpuscular Volume 101.1 fL (80.0-100.0); Mean Platelet Volume 11.1 fL (9.4-12.4); Monocytes # (auto) 0.94 K/uL (0.11-0.59); Monocytes % (auto) 9.6 %; Neutrophils # (auto) 7.45 K/uL (1.40-6.50); Neutrophils % (auto) 76.3 %; Platelet Count 226 K/uL (130-400); RDW Coefficient of Variation 16.8 % (11.5-14.5); RDW Standard Deviation 60.7 fL (36.4-46.3); Red Blood Count 2.71 M/uL (4.70-6.10); White Blood Count 9.77 K/ul (4.8-10.8)
[2025-01-26 06:53] LABS: Albumin Globulin Ratio 1.7 (0.9-2); Albumin Level 3.6 gm/dl (3.4-5.0); BUN Creatinine Ratio 12.3 (10-20); Bilirubin,Total 1.3 mg/dl (0.2-1.0); Calcium 8.8 mg/dl (8.6-10.3); Creatinine Clr Calc Pharmacy 60.4 ml/min; Globulin 2.1 gm/dl (2.5-4.0); Phosphorus 3.2 mg/dl (2.5-4.9); Potassium 3.2 mmol/L (3.5-5.1); Total Protein 5.7 gm/dl (6.0-8.3)
[2025-01-26] MEDS: POTASSIUM CHLORIDE CRTAB 20 MEQ TABCR PO STA (08:53)
--- NOTE | 2025-01-26 11:33 | Hospitalist Progress Note ---
Date of Service January 26, 2025 Assessment & Plan (1) Cellulitis of left leg: Plan Patient is 79-year-old male with PMH HTN, persistent atrial fibrillation anticoagulated on Eliquis, paroxysmal SVT, DM II, chronic anemia, rheumatoid arthritis, leg wounds presented to ER with c/o left leg redness and increased pain x 2 days. Cellulitis with abscess of LLE On 01/15/25 had presented to wound clinic with new hematoma to left leg and had area I&D. 01/15/25 Wound culture was without growth. In ER afebrile, P: 103, R: 20, BP 105/57, 97% on room air WBC: 12.4, lactate: 2.3, Procalcitonin: 0.1 Tib-fib x-ray: No fracture or osteomyelitis noted Blood cultures NGTD In ER given Rocephin, vancomycin, gentle IVF ordered Treated with Zosyn, vancomycin- vancomycin later switched to Daptomycin Per chart review pt with history pseudomonas on prior wound cultures Tylenol, oxycodone prn pain. Has buprenorphine patch prescribed but hasn't started using it yet. CT LE concerning for cellulitis, no evidence of osteomyelitis Wound nurse consult while inpatient Fall precautions General Surgery consulted, appreciate recs -s/p I and D on 01/21 wound cultx obtained in OR NGTD Possible Sepsis Evening of 01/23 pt cold and shivering Infectious workup repeated with blood cultures, lactate, chest XRAY, UA, procal, labs Vitals stable Added Daptomycin to IV Zosyn, Vancomycin discontineud Follow labs, workup and culture- NGTD ID consulted, awaiting further recs for discharge Atrial fibrillation History persistent A-Fib Paroxysmal SVT Borderline tachybrady syndrome In ER HR low 100's. Denies CP, SOB, palpitations Continue metoprolol succinate, Eliquis per recommendations of surgery on 01.23 to resume 01/23- pt with episode of a fib with RVR, HR in 140s to 150. Trop pending. BP stable, pt given one dose of IV Lopressor 5mg with noted improvement of HR to the one-teens. Continue with qPM Toprol dose increased to 75mg BID. Continue to monitor 01/24- improved 01/26- improved Chronic heart failure with preserved ejection fraction (HFpEF) CXR: Stable moderate cardiomegaly with mild pulmonary vascular congestion resume home oral lasix spironolactone resumed on 01/26, monitor BP and resume as able 02/02/2024 echo: EF: 55-60%, mild concentric LVH, moderate aortic valve sclerosis without significant stenosis, mild mitral regurgitation Hypokalemia replete as needed Diabetes mellitus, type II A1c: 8.5 on 08/01/24 Hold home metformin Novolog sliding scale per protocol Diabetic diet current A1c 6.5% COPD (chronic obstructive pulmonary disease) No signs acute exacerbation Continue home inhalers HLD (hyperlipidemia) Continue rosuvastatin Rheumatoid arthritis On Chronic prednisone 5mg daily Continue prednisone Chronic anemia History B12 deficiency Hb. (baseline appears in 's) Continue B12 supplement BPH (benign prostatic hyperplasia) Continue finasteride, tamsulosin DVT Prophylaxis - Eliquis -> on hold for now, resume in AM Dispo: telemetry Full Code as per discussion with pt Admission and Anticipated Discharge Date Admission Date: January 17, 2025 Subjective pt was seen in the AM Denied acute concerns Son to discuss whether pt to go to acute rehab Review of Systems Review of Systems: All systems reviewed & are unremarkable except as noted in Subjective Physical Exam Physical Exam: General: Alert, oriented. No acute distress Skin:RLE swollen, bruising noted. LLE wrapped HEENT: NC/AT CV: irregular Resp: Breath sounds clear bilaterally, no increased effort of breathing Abdomen: Soft, nontender Extremities: edema in lower extremities bilaterally, LE swollen, bruising noted. LLE wrapped Results & Data Results & Data Vital Signs (Past 12 Hours) Vital Signs Temp Pulse Pulse Resp BP BP Pulse Ox 01/26/25 08:21 80 01/26/25 07:46 36.4 C L 89 19 116/63 95 01/26/25 07:38 01/26/25 03:43 36.4 C L 81 18 125/73 94 O2 Del Method 01/26/25 08:21 01/26/25 07:46 Room Air 01/26/25 07:38 Room Air 01/26/25 03:43 Room Air
[2025-01-27 07:40] LABS: Basophils # (auto) 0.04 K/uL (0.00-0.20); Basophils % (auto) 0.4 %; Eosinophils # (auto) 0.11 K/uL (0.00-0.50); Eosinophils % (auto) 1.2 %; Hematocrit (blood only) 27.9 % (42.0-52.0); Immature Granulocytes % (auto) 1.1 %; Lymphocytes # (auto) 1.12 K/uL (1.20-3.40); Lymphocytes % (auto) 12.6 %; Mean Corpuscular Hemoglobin 33.3 pg (25.0-34.0); Mean Corpuscular Hgb Conc 32.3 g/dL (32.0-36.0); Mean Corpuscular Volume 103.3 fL (80.0-100.0); Mean Platelet Volume 11.2 fL (9.4-12.4); Monocytes # (auto) 0.88 K/uL (0.11-0.59); Monocytes % (auto) 9.9 %; Neutrophils # (auto) 6.65 K/uL (1.40-6.50); Neutrophils % (auto) 74.8 %; Platelet Count 228 K/uL (130-400); RDW Coefficient of Variation 17.2 % (11.5-14.5); RDW Standard Deviation 63.7 fL (36.4-46.3)
[2025-01-27 07:54] LABS: Albumin Globulin Ratio 1.5 (0.9-2); Albumin Level 3.4 gm/dl (3.4-5.0); BUN Creatinine Ratio 13.7 (10-20); Bilirubin,Total 1.2 mg/dl (0.2-1.0); Calcium 8.6 mg/dl (8.6-10.3); Creatinine Clr Calc Pharmacy 67.3 ml/min; Globulin 2.2 gm/dl (2.5-4.0); Phosphorus 3.4 mg/dl (2.5-4.9); Potassium 3.4 mmol/L (3.5-5.1); Total Protein 5.6 gm/dl (6.0-8.3)
[2025-01-27] MEDS: SPIRONOLACTONE 25 MG TAB PO SCH (08:37)
--- NOTE | 2025-01-27 09:11 | Infectious Disease Consult ---
Date of Service January 27, 2025 Telehealth Information I performed this visit using a real-time telehealth connection between my location and the patients location ([facility]). After connecting through interactive tele-video, patient was identified by name and date of and/or wristband check.Patient (or authorized healthcare sales representative girls' apparel) was informed that this was a telemedicine visit and it was being conducted confidentially over secure lines. My office door was closed and no on e else was present in the room with me.Patient (or authorized healthcare sales representative girls' apparel) provided consent to proceed with the visit, expressed an understanding of privacy and security of the telemedicine visit, and gave permission to have a hospital sales representative girls' apparel in the room in order to assist with the visit and to conduct portions of the visit, as needed. I informed the patient (or authorized healthcare sales representative girls' apparel) that I reviewed their record and presented the opportunity for them to ask any questions regarding the visit today. The patient agreed to participate. Recs for discharge Assessment & Plan (1) Cellulitis: Plan: discontinue Daptomycin if MRSA negative (2) Cellulitis of left lower extremity: Plan: continue local wound care and discontinue zosynon discharge and start levofloxacin if no contra-indications Plan Recommend obtaining MRSA PCR and if negative discontinue daptomycin .Discontinue zosyn and start levofloxacin on discharge and continue local wound care .Recommend treating for 7-10 days thank you for allowing us to participate in the care of this patient ID will sign off History of Present Illness History of Present Illness 79 y/o M PMHx HTN, persistent atrial fibrillation anticoagulated on Eliquis, paroxysmal SVT, DM II, chronic anemia, rheumatoid arthritis, leg wounds who presented to ER with c/o left leg redness and pain. Patient is being followed by wound clinic for chronic leg wounds. On 01/15/25 he had presented to wound clinic with new hematoma to left leg and was s/p I&D and his wound culture was without growth. Patient presented on 01/17/25 to wound clinic and was found to have cellulitis to LLE and was referred to ER for further evaluation. Patient reported that the day prior he started getting increased pain to left leg and noticed some redness accompanied by some drainage from area. Per chart review patient with history wound pseudomonas in past. He was started on zosyn and daptomycin Allergies Allergy/AdvReac Type Severity Reaction Status Date / Time No Known Allergies Allergy Verified 01/17/25 10:19 Home Medications Medication Instructions Recorded Confirmed Type finasteride 5 mg tablet 5 mg PO DAILY 04/25/20 01/17/25 History gabapentin 300 mg capsule 300 mg PO BID 04/25/20 01/17/25 History prednisone 5 mg tablet 5 mg PO DAILY 04/25/20 01/17/25 History spironolactone 25 mg tablet 25 mg PO QAM 04/25/20 01/17/25 History cholecalciferol (vitamin D3) 25 50 mcg PO DAILY 07/30/20 01/17/25 History mcg (1,000 unit) tablet (Vitamin D3) apixaban 5 mg tablet 5 mg PO BID 12/31/22 01/17/25 History pantoprazole 40 mg tablet,delayed 40 mg PO QAM 12/31/22 01/17/25 History release cyanocobalamin (vitamin B-12) 1,000 mcg PO DAILY 01/31/24 01/17/25 History 1,000 mcg tablet (Vitamin B-12) fluticasone 500 mcg-salmeterol 50 1 inh inhalation BID 01/31/24 01/17/25 History mcg/dose blistr powdr for inhalation ([facility] In[employer]) metoprolol succinate 50 mg 50 mg PO BID #60 tabs 02/08/24 01/17/25 Rx tablet,extended release 24 hr rosuvastatin 20 mg tablet 20 mg PO QAM 03/25/24 01/17/25 History furosemide 40 mg tablet 60 mg (1.5 x 40 mg) PO QAM #45 tabs 08/04/24 01/17/25 Rx metformin 500 mg tablet,extended 500 mg PO DAILY #30 tabs 08/04/24 01/17/25 Rx release 24 hr tamsulosin 0.4 mg capsule (Flomax) 0.4 mg PO DAILY 10/23/24 01/17/25 History acetaminophen 500 mg tablet 500 mg PO TID PRN Pain 01/17/25 01/17/25 History buprenorphine 5 mcg/hour weekly 1 patch transdermal Q7D 01/17/25 01/17/25 History transdermal patch food supplemt, lactose-reduced 1 ea PO BID 01/17/25 01/17/25 History (Ensure oral liquid) oxycodone 5 mg tablet 5 mg PO DAILY PRN pain 01/17/25 01/17/25 History skin cleanser comb no.31 1 spray topical DAILY 01/17/25 01/17/25 History (Skintegrity Wound Cleanser topical spray) Patient History Medical History (Updated 01/27/25 @ 09:20 by Salome Haas MD) Anemia HTN (hypertension) Atrial fibrillation with rapid ventricular response Diabetes mellitus, type II Thrombocytopenia Rheumatoid arthritis Hx of sepsis treated at [facility] 05/2024 > resolved per pt History of COVID-2019 History of COPD no res inh, controlled with routine inh per pt History of pneumonia treated at [facility] 05/13/24 was overnight obs per pt, no further issues, breathing is better per pt CHF (congestive heart failure) controlled at present per pt, follows with Dr. Denny Cellulitis present to left lower leg > sees wound clinic weekly Hx of peripheral neuropathy Ascending aorta enlargement follows with Dr. Denny, pt unaware of details Surgical History (Updated 01/21/25 @ 13:31 by Angelique Armijo RN) History of incision and drainage (01/21/25) Incision and drainage of left lower extremity abcess; sharp debridement of left lower extremity wound to fascia, total area approximately 35 square cm's Hx of cataract extraction right History of tooth extraction History of colonoscopy History of thoracotomy remote hx H/O inguinal hernia repair Family History Father Heart disease Social History Smoking Status: Former smoker Tobacco Type: Smokeless Tobacco (Dip or Chew) Cigarettes Per Day: 1 PPD; Second Hand Exposure: No; Do You Dip or Chew Tobacco: Yes (1 can per week); Hx Alcohol Use: No Hx Substance Use: No Preferred Language: Tamazight Communication Ability: Effective Communication Ability Comment: BOIS [place]TE Visual Impairment: Limited Hearing Ability: Hard of Hearing Interactive Video Technician Required: No Beliefs That Will Affect Care: None marital status: / Current Living Situation: Alone Current Living Situation Comment: lives next door to son current occupational status: retired How many Children do You have: 3 How many Children do You have Comment: All children live close and one son that lives closest is able to assist Feels Safe at Home: Yes Diet: regular during the past year weight has: remained stable Assistive Devices: Cane, Glasses and Walker Review of Systems No respiratory distress Physical Exam LLE cellulitis Results & Data Vital Signs (Past 12 Hours) Vital Signs Temp Pulse Pulse Resp BP BP Pulse Ox 01/27/25 08:19 36.3 C L 101 H 18 123/68 95 01/27/25 02:38 36.5 C 91 H 20 114/74 96 01/26/25 23:25 36.8 C 104 H 20 129/79 97 01/26/25 21:45 94 H 01/26/25 21:20 83 112/75 O2 Del Method 01/27/25 08:19 Room Air 01/27/25 02:38 Room Air 01/26/25 23:25 Room Air 01/26/25 21:45 01/26/25 21:20 Laboratory Results No leukocytosis Diagnostic Findings IMPRESSION: 1. Left lower leg wound with cellulitis. No fluid collection to suggest abscess. 2. No evidence for osteomyelitis within the left tibia or fibula. (1) Cellulitis Laterality: right Site of cellulitis: extremity Site of cellulitis of extremity: lower extremity Qualified Code(s): L03.115 - Cellulitis of right lower limb
[2025-01-27] MEDS: POTASSIUM CHLORIDE CRTAB 20 MEQ TABCR PO STA (10:35)
--- NOTE | 2025-01-27 15:31 | Hospitalist Progress Note ---
Date of Service January 27, 2025 Assessment & Plan (1) Cellulitis of left leg: Plan Patient is 79-year-old male with PMH HTN, persistent atrial fibrillation anticoagulated on Eliquis, paroxysmal SVT, DM II, chronic anemia, rheumatoid arthritis, leg wounds presented to ER with c/o left leg redness and increased pain x 2 days. Cellulitis with abscess of LLE On 01/15/25 had presented to wound clinic with new hematoma to left leg and had area I&D. 01/15/25 Wound culture was without growth. In ER afebrile, P: 103, R: 20, BP 105/57, 97% on room air WBC: 12.4, lactate: 2.3, Procalcitonin: 0.1 Tib-fib x-ray: No fracture or osteomyelitis noted Blood cultures NGTD In ER given Rocephin, vancomycin, gentle IVF ordered Treated with Zosyn, vancomycin- vancomycin later switched to Daptomycin Per chart review pt with history pseudomonas on prior wound cultures Tylenol, oxycodone prn pain. Has buprenorphine patch prescribed but hasn't started using it yet. CT LE concerning for cellulitis, no evidence of osteomyelitis Wound nurse consult while inpatient Fall precautions General Surgery consulted, appreciate recs -s/p I and D on 01/21 wound cultx obtained in OR NGTD Possible Sepsis Evening of 01/23 pt cold and shivering Infectious workup repeated with blood cultures, lactate, chest XRAY, UA, procal, labs Vitals stable Added Daptomycin to IV Zosyn, Vancomycin discontinued Follow labs, workup and culture- NGTD ID consulted, appreciate recs -continue po levofloxacin for 7- 10 days -follow MRSA nares Atrial fibrillation History persistent A-Fib Paroxysmal SVT Borderline tachybrady syndrome In ER HR low 100's. Denies CP, SOB, palpitations Continue metoprolol succinate, Eliquis per recommendations of surgery on 01.23 to resume 01/23- pt with episode of a fib with RVR, HR in 140s to 150. Trop pending. BP stable, pt given one dose of IV Lopressor 5mg with noted improvement of HR to the one-teens. Continue with qPM Toprol dose increased to 75mg BID. Continue to monitor 01/24- improved 01/26- improved 01/27- stable Chronic heart failure with preserved ejection fraction (HFpEF) CXR: Stable moderate cardiomegaly with mild pulmonary vascular congestion resume home oral lasix spironolactone resumed on 01/26, monitor BP and resume as able 02/02/2024 echo: EF: 55-60%, mild concentric LVH, moderate aortic valve sclerosis without significant stenosis, mild mitral regurgitation Hypokalemia replete as needed Diabetes mellitus, type II A1c: 8.5 on 08/01/24 Hold home metformin Novolog sliding scale per protocol Diabetic diet current A1c 6.5% COPD (chronic obstructive pulmonary disease) No signs acute exacerbation Continue home inhalers HLD (hyperlipidemia) Continue rosuvastatin Rheumatoid arthritis On Chronic prednisone 5mg daily Continue prednisone Chronic anemia History B12 deficiency Hb. (baseline appears in ) Continue B12 supplement BPH (benign prostatic hyperplasia) Continue finasteride, tamsulosin DVT Prophylaxis - Eliquis -> on hold for now, resume in AM Dispo: telemetry Full Code as per discussion with pt Admission and Anticipated Discharge Date Admission Date: January 17, 2025 Subjective pt was seen later in the day He denied acute concerns Unsure if he wants to go to acute rehab Review of Systems Review of Systems: All systems reviewed & are unremarkable except as noted in Subjective Physical Exam Physical Exam: General: Alert, oriented. No acute distress Skin:RLE swollen, bruising noted. LLE wrapped HEENT: NC/AT CV: irregular Resp: Breath sounds clear bilaterally, no increased effort of breathing Abdomen: Soft, nontender Extremities: edema in lower extremities bilaterally, LE swollen, bruising noted. LLE wrapped Results & Data Results & Data Vital Signs (Past 12 Hours) Vital Signs Temp Pulse Resp BP Pulse Ox O2 Del Method 01/27/25 11:28 36.3 C L 95 H 18 109/74 96 Room Air 01/27/25 08:19 36.3 C L 101 H 18 123/68 95 Room Air
[2025-01-27] MEDS ORDERED: Nursing to Pharmacy Communication SCH (16:15)
[2025-01-27] MEDS: FUROSEMIDE INJ 20 MG/2 ML VIAL IV ONE (17:17)
[2025-01-27] MEDS: levoFLOXacin 750 MG TAB PO SCH (18:10)
[2025-01-28 06:33] LABS: Basophils # (auto) 0.04 K/uL (0.00-0.20); Basophils % (auto) 0.5 %; Eosinophils # (auto) 0.07 K/uL (0.00-0.50); Eosinophils % (auto) 0.8 %; Hematocrit (blood only) 27.3 % (42.0-52.0); Immature Granulocytes % (auto) 1.2 %; Lymphocytes # (auto) 1.03 K/uL (1.20-3.40); Lymphocytes % (auto) 12.2 %; Mean Corpuscular Hemoglobin 33.3 pg (25.0-34.0); Mean Corpuscular Volume 101.1 fL (80.0-100.0); Mean Platelet Volume 10.9 fL (9.4-12.4); Monocytes # (auto) 0.86 K/uL (0.11-0.59); Monocytes % (auto) 10.2 %; Neutrophils # (auto) 6.32 K/uL (1.40-6.50); Neutrophils % (auto) 75.1 %; Platelet Count 243 K/uL (130-400); RDW Coefficient of Variation 16.8 % (11.5-14.5); RDW Standard Deviation 60.6 fL (36.4-46.3); White Blood Count 8.42 K/ul (4.8-10.8)
[2025-01-28 06:53] LABS: Albumin Globulin Ratio 1.5 (0.9-2); Albumin Level 3.4 gm/dl (3.4-5.0); BUN Creatinine Ratio 12.2 (10-20); Bilirubin,Total 1.2 mg/dl (0.2-1.0); Calcium 8.8 mg/dl (8.6-10.3); Creatinine Clr Calc Pharmacy 50.9 ml/min; Globulin 2.2 gm/dl (2.5-4.0); Magnesium 1.9 mg/dl (1.7-2.4); Phosphorus 3.7 mg/dl (2.5-4.9); Potassium 3.1 mmol/L (3.5-5.1); Total Protein 5.6 gm/dl (6.0-8.3)
[2025-01-28] MEDS: POTASSIUM CHLORIDE CRTAB 20 MEQ TABCR PO STA (10:40)
--- NOTE | 2025-01-28 12:51 | Hospitalist Progress Note ---
Date of Service January 28, 2025 Assessment & Plan (1) Cellulitis of left leg: Plan Patient is 79-year-old male with PMH HTN, persistent atrial fibrillation anticoagulated on Eliquis, paroxysmal SVT, DM II, chronic anemia, rheumatoid arthritis, leg wounds presented to ER with c/o left leg redness and increased pain x 2 days. Cellulitis with abscess of LLE On 01/15/25 had presented to wound clinic with new hematoma to left leg and had area I&D. 01/15/25 Wound culture was without growth. In ER afebrile, P: 103, R: 20, BP 105/57, 97% on room air WBC: 12.4, lactate: 2.3, Procalcitonin: 0.1 Tib-fib x-ray: No fracture or osteomyelitis noted Blood cultures NGTD In ER given Rocephin, vancomycin, gentle IVF ordered Treated with Zosyn, vancomycin- vancomycin later switched to Daptomycin Per chart review pt with history pseudomonas on prior wound cultures Tylenol, oxycodone prn pain. Has buprenorphine patch prescribed but hasn't started using it yet. CT LE concerning for cellulitis, no evidence of osteomyelitis Wound nurse consult while inpatient Fall precautions General Surgery consulted, appreciate recs -s/p I and D on 01/21 wound cultx obtained in the OR NGTD Possible Sepsis Evening of 01/23 pt cold and shivering Infectious workup repeated with blood cultures, lactate, chest XRAY, UA, procal, labs Vitals stable Added Daptomycin to IV Zosyn, Vancomycin discontinued Follow labs, workup and culture- NGTD ID consulted, appreciate recs -continue po levofloxacin for 7- 10 days -follow MRSA nares Atrial fibrillation History persistent A-Fib Paroxysmal SVT Borderline tachybrady syndrome In ER HR low 100's. Denies CP, SOB, palpitations Continue metoprolol succinate, Eliquis per recommendations of surgery on 01.23 to resume 01/23- pt with episode of a fib with RVR, HR in 140s to 150. Trop pending. BP stable, pt given one dose of IV Lopressor 5mg with noted improvement of HR to the one-teens. Continue with qPM Toprol dose increased to 75mg BID. Continue to monitor 01/24- improved 01/26- improved 01/27- stable 01/28- stable Acute on Chronic heart failure with preserved ejection fraction (HFpEF) CXR: Stable moderate cardiomegaly with mild pulmonary vascular congestion 02/02/2024 echo: EF: 55-60%, mild concentric LVH, moderate aortic valve sclerosis without significant stenosis, mild mitral regurgitation Pt with significant pitting edema in lower extremities, scrotum, body home oral lasix currently on hold, continue with IV Lasix 40mg BID, monitor BP spironolactone resumed on 01/26, monitor BP and resume as able Monitor Is and Os, daily weights Hypokalemia replete as needed Diabetes mellitus, type II A1c: 8.5 on 08/01/24 Hold home metformin Novolog sliding scale per protocol Diabetic diet current A1c 6.5% COPD (chronic obstructive pulmonary disease) No signs acute exacerbation Continue home inhalers HLD (hyperlipidemia) Continue rosuvastatin Rheumatoid arthritis On Chronic prednisone 5mg daily Continue prednisone Chronic anemia History B12 deficiency Hb. (baseline appears in 11's) Continue B12 supplement BPH (benign prostatic hyperplasia) Continue finasteride, tamsulosin DVT Prophylaxis - Eliquis -> on hold for now, resume in AM Dispo: telemetry Full Code as per discussion with pt Admission and Anticipated Discharge Date Admission Date: January 17, 2025 Subjective Pt was seen sitting up at the side of the bed working with PT He denied acute concerns Still unsure if he wants to go home vs acute rehab Review of Systems Review of Systems: All systems reviewed & are unremarkable except as noted in Subjective Physical Exam Physical Exam: General: Alert, oriented. No acute distress Skin:RLE swollen, bruising noted. LLE wrapped HEENT: NC/AT CV: irregular Resp: Breath sounds with crackles at the bases bilaterally, no increased effort of breathing Abdomen: Soft, nontender Extremities: edema in lower extremities bilaterally, LE swollen, bruising noted. LLE wrapped Results & Data Results & Data Vital Signs (Past 12 Hours) Vital Signs Temp Pulse Resp BP Pulse Ox O2 Del Method 01/28/25 11:04 36.5 C 84 18 110/75 96 Room Air 01/28/25 08:00 Room Air 01/28/25 07:51 36.4 C L 85 18 107/67 94 Room Air 01/28/25 03:23 36.5 C 83 16 98/60 L 98 Room Air
[2025-01-28] MEDS: FUROSEMIDE 40 MG/4 ML VIAL IV SCH (16:51)
--- NOTE | 2025-01-28 19:59 | Urology Consultation ---
Date of Consultation January 28, 2025 Assessment & Plan (1) Scrotal swelling: I evaluated the patient in room 286 at the request of the hospitalist service. From urologic perspective we recommend the following: At the present time as noted separately in this document patient has painless scrotal swelling without any signs of infection or any masses I suspect the patient's swelling may be due to anasarca that the patient is suffering from I did provide the patient with reassurance but did notify the patient that I would like to check a scrotal ultrasound to ensure there is not any other underlying pathology that could be contributing to this problem Additional recommendations will be forthcoming based on his clinical course as it unfolds as well as the ultrasound as it becomes available Addendum: Scrotal ultrasound was reviewed. There is no evidence of testicular torsion bilaterally. There are no testicular masses noted bilaterally. The patient was noted to have moderate bilateral hydroceles. History of Present Illness Reason for Consultation: Scrotal swelling Attending Physician: Silvia Mccullough MD History of Present Illness This is an 79-year-old male who has been admitted to [facility] since 01/17/2025. Patient was initially admitted with cellulitis of the left leg. Because of the cellulitis of his left leg General Surgery was consulted and on 01/21/2025 Dr. Hui performed an incision and drainage of the left lower leg where an abscess cavity was found. Patient has been in the hospital since that time receiving local wound care as well as antibiotics. The patient also has atrial fibrillation for which she takes Eliquis and during his hospitalization he has also been treated for acute on chronic heart failure. He has been treated with diuresis in the form of intravenous Lasix. Urology has been asked to see the patient because the patient notes that since the incision and drainage of his lower extremity he has noted some worsening swelling of his scrotum. When I asked the patient about symptomatology relating this he notes that he just has generalized scrotal swelling is gotten worse over the past week or so but it is painless. He also denies any back or flank pain. He notes that he is able to urinate and feels as though his urine stream is adequate. He also feels as though he can empty his bladder completely. He denies any dysuria. He does note urinary frequency but directly correlates this with administration of Lasix. The patient does note that he was circumcised as a child. The patient's most recent labs were from today where his CBC revealed white blood cell count and platelet count were normal. Hemoglobin and hematocrit were 9.0 and 27.3. Chemistry profile showed sodium is 139 with a potassium of 3.1. His BUN and creatinine were both within normal range. His LFTs were not elevated. Patient's albumin was noted to be 3.4 which was on the lower level of normal. Total protein was slightly low at 5.6. At the time of my interview he was resting comfortably in bed he was in no distress. Allergies Allergy/AdvReac Type Severity Reaction Status Date / Time No Known Allergies Allergy Verified 01/17/25 10:19 Home Medications Medication Instructions Recorded Confirmed Type finasteride 5 mg tablet 5 mg PO DAILY 04/25/20 01/17/25 History gabapentin 300 mg capsule 300 mg PO BID 04/25/20 01/17/25 History prednisone 5 mg tablet 5 mg PO DAILY 04/25/20 01/17/25 History spironolactone 25 mg tablet 25 mg PO QAM 04/25/20 01/17/25 History cholecalciferol (vitamin D3) 25 50 mcg PO DAILY 07/30/20 01/17/25 History mcg (1,000 unit) tablet (Vitamin D3) apixaban 5 mg tablet 5 mg PO BID 12/31/22 01/17/25 History pantoprazole 40 mg tablet,delayed 40 mg PO QAM 12/31/22 01/17/25 History release cyanocobalamin (vitamin B-12) 1,000 mcg PO DAILY 01/31/24 01/17/25 History 1,000 mcg tablet (Vitamin B-12) fluticasone 500 mcg-salmeterol 50 1 inh inhalation BID 01/31/24 01/17/25 History mcg/dose blistr powdr for inhalation (Wixela Inhub) metoprolol succinate 50 mg 50 mg PO BID #60 tabs 02/08/24 01/17/25 Rx tablet,extended release 24 hr rosuvastatin 20 mg tablet 20 mg PO QAM 03/25/24 01/17/25 History furosemide 40 mg tablet 60 mg (1.5 x 40 mg) PO QAM #45 tabs 08/04/24 01/17/25 Rx metformin 500 mg tablet,extended 500 mg PO DAILY #30 tabs 08/04/24 01/17/25 Rx release 24 hr tamsulosin 0.4 mg capsule (Flomax) 0.4 mg PO DAILY 10/23/24 01/17/25 History acetaminophen 500 mg tablet 500 mg PO TID PRN Pain 01/17/25 01/17/25 History buprenorphine 5 mcg/hour weekly 1 patch transdermal Q7D 01/17/25 01/17/25 History transdermal patch food supplemt, lactose-reduced 1 ea PO BID 01/17/25 01/17/25 History (Ensure oral liquid) oxycodone 5 mg tablet 5 mg PO DAILY PRN pain 01/17/25 01/17/25 History skin cleanser comb no.31 1 spray topical DAILY 01/17/25 01/17/25 History (Skintegrity Wound Cleanser topical spray) Patient History Medical History Anemia HTN (hypertension) Atrial fibrillation with rapid ventricular response Diabetes mellitus, type II Thrombocytopenia Rheumatoid arthritis Hx of sepsis treated at [facility] 05/2024 > resolved per pt History of COVID-2019 History of COPD no res inh, controlled with routine inh per pt History of pneumonia treated at [place] 05/13/24 was overnight obs per pt, no further issues, breathing is better per pt CHF (congestive heart failure) controlled at present per pt, follows with Dr. Denny Cellulitis present to left lower leg > sees wound clinic weekly Hx of peripheral neuropathy Ascending aorta enlargement follows with Dr. Denny, pt unaware of details Surgical History History of incision and drainage (01/21/25) Incision and drainage of left lower extremity abcess; sharp debridement of left lower extremity wound to fascia, total area approximately 35 square cm's Hx of cataract extraction right History of tooth extraction History of colonoscopy History of thoracotomy remote hx H/O inguinal hernia repair Family History Father Heart disease Social History Smoking Status: Former smoker Tobacco Type: Smokeless Tobacco (Dip or Chew) Cigarettes Per Day: 1 PPD; Second Hand Exposure: No; Do You Dip or Chew Tobacco: Yes (1 can per week); Hx Alcohol Use: No Hx Substance Use: No Preferred Language: [place] Communication Ability: Effective Communication Ability Comment: [place] Visual Impairment: Limited Hearing Ability: Hard of Hearing Crepe 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 Required: No Beliefs That Will Affect Care: None marital status: / Current Living Situation: Alone Current Living Situation Comment: lives next door to son current occupational status: retired How many Children do You have: 3 How many Children do You have Comment: All children live close and one son that lives closest is able to assist Feels Safe at Home: Yes Diet: regular during the past year weight has: remained stable Assistive Devices: Cane, Glasses and Walker Review of Systems Review of Systems: All systems reviewed & are unremarkable except as noted in HPI & below Physical Exam Constitutional: WD/WN, vitals as above Eyes: no conjunctival abnormality ENMT: Ears: no hearing impairment and no external ear abnormality Mouth: no oropharynx abnormality Neck: trachea midline Respiratory: normal respiratory effort; no respiratory distress and no labored breathing Cardiovascular: Rate/Rhythm: regular rate and regular rhythm Gastrointestinal (Abdomen): Abdomen is soft and nontender to palpation. There are no signs of peritonitis Musculoskeletal: Patient was noted to have 2-3+ pitting edema of the lower extremities bilaterall y Neurologic: moves all extremities Psychiatric: A+Ox3, euthymic affect Genitourinary: Patient's genital area was examined. The patient was noted to have marked edema of the patient's penis. He was also noted to have marked swelling/edema of the scrotal on each side. Both the penis and the scrotum are nontender to palpation. I did not appreciate any masses on examination. There is no erythema or open areas or areas of drainage. Results & Data Vital Signs (Past 12 Hours) Vital Signs Temp Pulse Pulse Resp BP BP Pulse Ox 01/28/25 19:26 36.4 C L 112 H 18 108/72 97 01/28/25 16:22 36.7 C 83 18 118/65 94 01/28/25 13:01 93 H 01/28/25 11:04 36.5 C 84 18 110/75 96 01/28/25 08:00 O2 Del Method 01/28/25 19:26 Room Air 01/28/25 16:22 Room Air 01/28/25 13:01 01/28/25 11:04 Room Air 01/28/25 08:00 Room Air PG Care Time/CCT Total # of Minutes Spent Total Time Spent with Patient: Total time spent is greater than 50% in coordination of care (as documented) at patient's floor/unit and/or counseling patient: Coding Level of Care Code 14644 INT INP/OBS CARE 3/75MIN Diagnoses Scrotal swelling N50.89
[2025-01-28] MEDS: POTASSIUM CHLORIDE CRTAB 20 MEQ TABCR PO SCH (20:24)
--- NOTE | 2025-01-29 00:12 | Ultrasound Report ---
Exam(s): US SCROTAL EXAM: US Scrotum CLINICAL HISTORY: scrotal swelling. TECHNIQUE: Real-time ultrasound of the scrotum with color Doppler and image documentation. COMPARISON: No relevant prior studies available. FINDINGS: Right testicle: The right testicle measures 3.9 x 2.4 x 2.6 cm. No evidence for torsion or intratesticular mass. Left testicle: The left testicle measures 3.2 x 2.2 x 2.4 cm. The testicle is somewhat heterogeneous. No well-defined mass. No evidence for torsion. Epididymides: There is an epididymal cyst on the right measuring 3 mm with ectasia of the rete testes. The left epididymis is normal in appearance. No enlargement. Scrotum: Moderate bilateral hydroceles. IMPRESSION: 1. No evidence for torsion. 2. Moderate bilateral hydroceles. Electronically signed by: Tony Cotto MD 01/29/25 00:11 AM
[2025-01-29 07:49] LABS: Basophils # (auto) 0.02 K/uL (0.00-0.20); Basophils % (auto) 0.2 %; Eosinophils # (auto) 0.07 K/uL (0.00-0.50); Eosinophils % (auto) 0.8 %; Hematocrit (blood only) 28.4 % (42.0-52.0); Hemoglobin 9.3 g/dl (14.0-18.0); Immature Granulocytes # (auto) 0.07 K/uL (0.01-0.20); Immature Granulocytes % (auto) 0.8 %; Lymphocytes # (auto) 1.25 K/uL (1.20-3.40); Lymphocytes % (auto) 14.5 %; Mean Corpuscular Hemoglobin 33.5 pg (25.0-34.0); Mean Corpuscular Hgb Conc 32.7 g/dL (32.0-36.0); Mean Corpuscular Volume 102.2 fL (80.0-100.0); Monocytes # (auto) 1.01 K/uL (0.11-0.59); Monocytes % (auto) 11.7 %; Neutrophils # (auto) 6.18 K/uL (1.40-6.50); Platelet Count 277 K/uL (130-400); RDW Coefficient of Variation 17.1 % (11.5-14.5); RDW Standard Deviation 63.7 fL (36.4-46.3); Red Blood Count 2.78 M/uL (4.70-6.10)
[2025-01-29 08:05] LABS: Albumin Globulin Ratio 1.5 (0.9-2); Albumin Level 3.5 gm/dl (3.4-5.0); Bilirubin,Total 1.1 mg/dl (0.2-1.0); Creatinine Clr Calc Pharmacy 53.8 ml/min; Globulin 2.3 gm/dl (2.5-4.0); Phosphorus 3.7 mg/dl (2.5-4.9); Potassium 3.5 mmol/L (3.5-5.1); Total Protein 5.8 gm/dl (6.0-8.3)
--- NOTE | 2025-01-29 17:55 | Hospitalist Progress Note ---
Date of Service January 29, 2025 Assessment & Plan (1) Cellulitis of left leg: Plan Patient is 79-year-old male with PMH HTN, persistent atrial fibrillation anticoagulated on Eliquis, paroxysmal SVT, DM II, chronic anemia, rheumatoid arthritis, leg wounds presented to ER with c/o left leg redness and increased pain x 2 days. Cellulitis with abscess of LLE On 01/15/25 had presented to wound clinic with new hematoma to left leg and had area I&D. 01/15/25 Wound culture was without growth. In ER afebrile, P: 103, R: 20, BP 105/57, 97% on room air WBC: 12.4, lactate: 2.3, Procalcitonin: 0.1 Tib-fib x-ray: No fracture or osteomyelitis noted Blood cultures NGTD In ER given Rocephin, vancomycin, gentle IVF ordered Treated with Zosyn, vancomycin- vancomycin later switched to Daptomycin Per chart review pt with history pseudomonas on prior wound cultures Tylenol, oxycodone prn pain. Has buprenorphine patch prescribed but hasn't started using it yet. CT LE concerning for cellulitis, no evidence of osteomyelitis Wound nurse consult while inpatient Fall precautions General Surgery consulted, appreciate recs -s/p I and D on 01/21 wound cultx obtained in the OR NGTD Possible Sepsis Evening of 01/23 pt cold and shivering Infectious workup repeated with blood cultures, lactate, chest XRAY, UA, procal, labs Vitals stable Added Daptomycin to IV Zosyn, Vancomycin discontinued Follow labs, workup and culture- NGTD ID consulted, appreciate recs -continue po levofloxacin for 7- 10 days -follow MRSA nares Atrial fibrillation History persistent A-Fib Paroxysmal SVT Borderline tachybrady syndrome In ER HR low 100's. Denies CP, SOB, palpitations Continue metoprolol succinate, Eliquis per recommendations of surgery on 01.23 to resume 01/23- pt with episode of a fib with RVR, HR in 140s to 150. Trop pending. BP stable, pt given one dose of IV Lopressor 5mg with noted improvement of HR to the one-teens. Continue with qPM Toprol dose increased to 75mg BID. Continue to monitor 01/24- improved 01/26- improved 01/27- stable 01/28- stable Acute on Chronic heart failure with preserved ejection fraction (HFpEF) CXR: Stable moderate cardiomegaly with mild pulmonary vascular congestion 02/02/2024 echo: EF: 55-60%, mild concentric LVH, moderate aortic valve sclerosis without significant stenosis, mild mitral regurgitation Pt with significant pitting edema in lower extremities, scrotum, body home oral lasix currently on hold, continue with IV Lasix 40mg BID, monitor BP spironolactone resumed on 01/26, monitor BP and resume as able Monitor Is and Os, daily weights Hypokalemia replete as needed Diabetes mellitus, type II A1c: 8.5 on 08/01/24 Hold home metformin Novolog sliding scale per protocol Diabetic diet current A1c 6.5% COPD (chronic obstructive pulmonary disease) No signs acute exacerbation Continue home inhalers HLD (hyperlipidemia) Continue rosuvastatin Rheumatoid arthritis On Chronic prednisone 5mg daily Continue prednisone Chronic anemia History B12 deficiency Hb. (baseline appears in 's) Continue B12 supplement BPH (benign prostatic hyperplasia) Continue finasteride, tamsulosin DVT Prophylaxis - Elicolinis Dispo: telemetry Full Code as per discussion with pt Admission and Anticipated Discharge Date Admission Date: January 17, 2025 Subjective Pt seen in follow up of cellulitis, follows with wound care - referred by wound care to [facility], s/p I&D w/ gen. surgery for LLE abscess Sitting up in chair in NAD no fever, chills, chest pain, shortness of breath, no abd. pain + edema, including scrotal edema. Report leg feels well and is heeling well. Review of Systems Review of Systems: All systems reviewed & are unremarkable except as noted in Subjective Physical Exam Physical Exam: General: WDWN elderly male in NAD Head: normocephalic, atraumatic Eyes: conjunctiva non-injected, anicteric ENT: normal inspection external ears, nose, mucous membranes moist Neck: supple Lungs: no respiratory distress, +slight rales at bases bilaterally, no wheezing/rhonchi CV: irregularly irregular Abd: normal BS, soft, non-tender Ext: RLE: scars noted. +mildly diffuse tender to palpation (pt reports chronic). LLE: in dressings now (s/p I&D), nontender Neuro: A&O x 3, no focal deficits noted, normal affect Skin: as above in extremities. +scattered ecchymosis to extremities. warm, dry Results & Data Results & Data Vital Signs (Past 12 Hours) Vital Signs Temp Pulse Pulse Resp BP Pulse Ox O2 Del Method 01/29/25 16:18 108 H 01/29/25 15:02 36.7 C 100 H 18 106/69 96 Room Air 01/29/25 11:04 36.7 C 107 H 20 125/80 98 Room Air 01/29/25 08:00 Room Air 01/29/25 07:32 36.3 C L 118 H 20 121/78 96 Room Air Laboratory Results 01/29/25 01/29/25 01/29/25 Range/Units 17:14 12:01 08:02 WBC (4.8-10.8) K/ul RBC (4.70-6.10) M/uL Hgb (14.0-18.0) g/dl Hct (42.0-52.0) % MCV (80.0-100.0) fL MCH (25.0-34.0) pg MCHC (32.0-36.0) g/dL RDW Std Deviation (36.4-46.3) fL RDW Coeff of Roxanna (11.5-14.5) % Plt Count (130-400) K/uL MPV (9.4-12.4) fL Immature Gran % (Auto) % Neut % (Auto) % Lymph % (Auto) % Bailey % (Auto) % Eos % (Auto) % Baso % (Auto) % Neut # (Auto) (1.40-6.50) K/uL Lymph # (Auto) (1.20-3.40) K/uL Bailey # (Auto) (0.11-0.59) K/uL Eos # (Auto) (0.00-0.50) K/uL Baso # (Auto) (0.00-0.20) K/uL Immature Gran # (Auto) (0.01-0.20) K/uL Sodium (136-145) mmol/L Potassium (3.5-5.1) mmol/L Chloride (98-107) mmol/L Carbon Dioxide (21-32) mmol/L Anion Gap (3-11) BUN (6-23) mg/dl Creatinine (0.6-1.4) mg/dl Est Cr Clr Drug Dosing ml/min eGFR BUN/Creatinine Ratio (10-20) Glucose (70-99(Fasting)) mg/dl POC Glucose 143 H 74 82 (70-99) mg/dl Calcium (8.6-10.3) mg/dl Phosphorus (2.5-4.9) mg/dl Magnesium (1.7-2.4) mg/dl Total Bilirubin (0.2-1.0) mg/dl AST (13-39) U/L ALT (7-52) U/L Alkaline Phosphatase (34-104) U/L Total Protein (6.0-8.3) gm/dl Albumin (3.4-5.0) gm/dl Globulin (2.5-4.0) gm/dl Albumin/Globulin Ratio (0.9-2) 01/29/25 01/28/25 Range/Units 07:16 19:53 WBC 8.60 (4.8-10.8) K/ul RBC 2.78 L (4.70-6.10) M/uL Hgb 9.3 L (14.0-18.0) g/dl Hct 28.4 L (42.0-52.0) % MCV 102.2 H (80.0-100.0) fL MCH 33.5 (25.0-34.0) pg MCHC 32.7 (32.0-36.0) g/dL RDW Std Deviation 63.7 H (36.4-46.3) fL RDW Coeff of Roxanna 17.1 H (11.5-14.5) % Plt Count 277 (130-400) K/uL MPV 11.0 (9.4-12.4) fL Immature Gran % (Auto) 0.8 % Neut % (Auto) 72.0 % Lymph % (Auto) 14.5 % Bailey % (Auto) 11.7 % Eos % (Auto) 0.8 % Baso % (Auto) 0.2 % Neut # (Auto) 6.18 (1.40-6.50) K/uL Lymph # (Auto) 1.25 (1.20-3.40) K/uL Bailey # (Auto) 1.01 H (0.11-0.59) K/uL Eos # (Auto) 0.07 (0.00-0.50) K/uL Baso # (Auto) 0.02 (0.00-0.20) K/uL Immature Gran # (Auto) 0.07 (0.01-0.20) K/uL Sodium 139 (136-145) mmol/L Potassium 3.5 (3.5-5.1) mmol/L Chloride 101 (98-107) mmol/L Carbon Dioxide 30 (21-32) mmol/L Anion Gap 8 (3-11) BUN 15 (6-23) mg/dl Creatinine 1.15 (0.6-1.4) mg/dl Est Cr Clr Drug Dosing 53.8 ml/min eGFR 63.94 BUN/Creatinine Ratio 13.0 (10-20) Glucose 83 (70-99(Fasting)) mg/dl POC Glucose 117 H (70-99) mg/dl Calcium 9.0 (8.6-10.3) mg/dl Phosphorus 3.7 (2.5-4.9) mg/dl Magnesium 2.0 (1.7-2.4) mg/dl Total Bilirubin 1.1 H (0.2-1.0) mg/dl AST 24 (13-39) U/L ALT 13 (7-52) U/L Alkaline Phosphatase 39 (34-104) U/L Total Protein 5.8 L (6.0-8.3) gm/dl Albumin 3.5 (3.4-5.0) gm/dl Globulin 2.3 L (2.5-4.0) gm/dl Albumin/Globulin Ratio 1.5 (0.9-2) Medications Administered Current Inpatient Medications Acetaminophen (Acetaminophen 325 Mg Tab) 650 mg PO Q4H PRN PRN Reason: Pain or Fever Stop: 02/16/25 17:05 Last Admin: 01/28/25 07:54 Dose: 650 mg Apixaban (Apixaban 5 Mg Tablet) 5 mg PO BID [facility] Stop: 02/22/25 18:29 Last Admin: 01/30/25 08:43 Dose: 5 mg Cyanocobalamin (Cyanocobalamin (B-12) 500 Mcg Tablet) 1,000 mcg PO DAILY [facility] Stop: 02/17/25 08:59 Last Admin: 01/30/25 08:42 Dose: 1,000 mcg Dextrose (Dextrose 50% 50 Ml Syringe) 25 - 50 ml IV UD PRN; Protocol PRN Reason: Hypoglycemia Protocol Stop: 02/16/25 17:05 Finasteride (Finasteride 5 Mg Tab) 5 mg PO DAILY [facility] Stop: 02/17/25 08:59 Last Admin: 01/30/25 08:46 Dose: 5 mg Fluticasone/Vilanterol (Fluticasone/Vilanterol 200/25mcg 14 Puffs/Inhaler) 1 puffs INH DAILY [facility] Stop: 02/17/25 08:59 Last Admin: 01/30/25 08:47 Dose: 1 puffs Furosemide (Furosemide 20 Mg Tab) 60 mg PO QAM [facility] Stop: 02/23/25 08:59 Last Admin: 01/28/25 08:02 Dose: 60 mg Furosemide (Furosemide 40 Mg/4 Ml Vial) 40 mg IV BID17 [facility] Stop: 02/27/25 16:59 Last Admin: 01/30/25 08:43 Dose: 40 mg Gabapentin (Gabapentin 300 Mg Cap) 300 mg PO BID [facility] Stop: 02/16/25 20:59 Last Admin: 01/30/25 08:44 Dose: 300 mg Glucagon (Glucagon For Inj 1 Mg Vial) 1 mg SQ UD PRN; Protocol PRN Reason: Hypoglycemia Protocol Stop: 02/16/25 17:05 Glucose (Glucose 40% Gel 15 Gm Tube) 15 - 30 gm PO UD PRN; Protocol PRN Reason: Hypoglycemia Protocol Stop: 02/16/25 17:05 Glucose (Glucose 10 Tab/Tube) 4 - 8 tab PO UD PRN; Protocol PRN Reason: Hypoglycemia Protocol Stop: 02/16/25 17:05 Insulin Aspart (Insulin Aspart Per Unit Charge) 0 units SC ACHS [facility] Stop: 02/16/25 17:05 Last Admin: 01/30/25 08:45 Dose: 3 units Levofloxacin (Levofloxacin 750 Mg Tab) 750 mg PO DAILY@1100 [facility]; Protocol Stop: 02/03/25 16:29 Last Admin: 01/29/25 13:04 Dose: 750 mg Metoprolol Succinate (Metoprolol Succ 25mg Ext Rel Tab) 75 mg PO BID [facility] Stop: 02/22/25 20:59 Last Admin: 01/30/25 08:43 Dose: 75 mg Miscellaneous (Carbohydrates For Hypoglycemia ) 15 - 30 gm PO UD PRN PRN Reason: Hypoglycemia Protocol Stop: 02/16/25 17:05 Ondansetron HCl (Ondansetron Inj 2 Mg/Ml 2 Ml Vial) 4 mg IV Q6H PRN PRN Reason: Nausea Stop: 02/16/25 17:05 Oxycodone HCl (Oxycodone Hcl Ir 5 Mg Tab (Immediate Release)) 5 mg PO Q4H PRN PRN Reason: Severe Pain (Scale 7, 8, 9,10) Stop: 01/31/25 17:05 Last Admin: 01/28/25 11:07 Dose: 5 mg Pantoprazole Sodium (Pantoprazole 40 Mg Tab) 40 mg PO QAM [facility] Stop: 02/17/25 08:59 Last Admin: 01/30/25 08:47 Dose: 40 mg Polyethylene Glycol (Polyethylene (Miralax) 17 Gm Pack) 17 gm PO DAILY PRN PRN Reason: Constipation Stop: 02/16/25 17:05 Potassium Chloride (Potassium Chloride Crtab 20 Meq Tabcr) 20 meq PO BID [facility] Stop: 02/27/25 20:59 Last Admin: 01/30/25 09:01 Dose: 20 meq Prednisone (Prednisone 5 Mg Tab) 5 mg PO DAILY [facility] Stop: 02/17/25 08:59 Last Admin: 01/30/25 08:44 Dose: 5 mg Rosuvastatin Calcium (Rosuvastatin Calcium 20 Mg Tab) 20 mg PO QAM [facility] Stop: 02/17/25 08:59 Last Admin: 01/23/25 08:06 Dose: 20 mg Spironolactone (Spironolactone 25 Mg Tab) 25 mg PO QAM [facility] Stop: 02/26/25 08:59 Last Admin: 01/30/25 08:46 Dose: 25 mg Tamsulosin HCl (Tamsulosin Hcl 0.4 Mg Cap) 0.4 mg PO DAILY [facility] Stop: 02/17/25 08:59 Last Admin: 01/30/25 08:43 Dose: 0.4 mg Vitamin D (Cholecalciferol 25 Mcg (1000 Units) Tab) 50 mcg PO DAILY [facility] Stop: 02/17/25 08:59 Last Admin: 01/30/25 08:43 Dose: 50 mcg
[2025-01-30 06:31] LABS: Hematocrit (blood only) 29.2 % (42.0-52.0); Hemoglobin 9.5 g/dl (14.0-18.0); Mean Corpuscular Hemoglobin 33.1 pg (25.0-34.0); Mean Corpuscular Hgb Conc 32.5 g/dL (32.0-36.0); Mean Corpuscular Volume 101.7 fL (80.0-100.0); Mean Platelet Volume 10.7 fL (9.4-12.4); Platelet Count 290 K/uL (130-400); RDW Coefficient of Variation 16.7 % (11.5-14.5); RDW Standard Deviation 62.4 fL (36.4-46.3); Red Blood Count 2.87 M/uL (4.70-6.10); White Blood Count 8.66 K/ul (4.8-10.8)
[2025-01-30 07:20] LABS: BUN Creatinine Ratio 15.3 (10-20); Creatinine Clr Calc Pharmacy 55.5 ml/min; Magnesium 1.9 mg/dl (1.7-2.4); Phosphorus 3.7 mg/dl (2.5-4.9); Potassium 3.6 mmol/L (3.5-5.1)
--- NOTE | 2025-01-30 08:44 | Urology Progress Note ---
Date of Service January 30, 2025 Assessment & Plan (1) Scrotal swelling: Plan 79-year-old male who was admitted for cellulitis, who underwent I&D from general surgery on 01/21/2025. Urology was consulted for scrotal swelling. Patient with painless scrotal swelling- hydroceles and edema likely from anasarca. Scrotal ultrasound showed moderate bilateral hydroceles Labs reviewed WBCs 8.66, hemoglobin 9.5, creatinine 1.11 Denying any pain from scrotal swelling today Continue Lasix to help with scrotal edema-hopefully will reduce in size Could also do scrotal elevation to help with swelling No urological intervention while hospitalized Arrange outpatient follow-up due to hydroceles-did discuss that we only perform hydrocelectomy for pain and or bothersome symptoms Continue medical management and other care per primary team Urology will sign off Please contact our service for any questions or concerns Admission and Anticipated Discharge Date Admission Date: January 17, 2025 Subjective Resting comfortably in bed Denies fevers, chills, nausea, vomiting Urinary frequency and incontinence associated with Lasix Denies other bothersome urinary symptoms Denies scrotal pain associated with swelling Review of Systems Constitutional: as per Subjective / HPI Genitourinary: + as per Subjective / HPI Physical Exam Constitutional: no acute distress Chronically ill-appearing Respiratory: normal respiratory effort and able to speak in complete sentences Cardiovascular: Extremities: + edema (Lower legs bilaterally) Musculoskeletal: Extremities: + lower leg abnormality Psychiatric: Orientation: alert and oriented x 3 Genitourinary: Circumcised penis with notable edema, testes in bilateral sac, unable to palpate testicles with notable edema bilaterally, no tenderness to palpitation, erythema or drainage Results & Data Vital Signs (Past 12 Hours) Vital Signs Temp Pulse Pulse Resp BP Pulse Ox O2 Del Method 01/30/25 07:44 36.7 C 88 20 101/64 96 Room Air 01/30/25 04:00 36.4 C L 88 18 103/65 96 Room Air 01/29/25 23:19 36.6 C 87 18 107/70 97 Room Air 01/29/25 21:49 89 PG Care Time/CCT Total # of Minutes Spent Total Time Spent with Patient: Total time spent is greater than 50% in coordination of care (as documented) at patient's floor/unit and/or counseling patient: Coding Level of Care Code 70244 SUB INP/OBS CARE 2/35MIN Diagnoses Scrotal swelling N50.89
--- NOTE | 2025-01-30 11:49 | Hospitalist Progress Note ---
Date of Service January 30, 2025 Assessment & Plan (1) Cellulitis of left leg: Plan Patient is 79-year-old male with PMH HTN, persistent atrial fibrillation anticoagulated on Eliquis, paroxysmal SVT, DM II, chronic anemia, rheumatoid arthritis, leg wounds presented to ER with c/o left leg redness and increased pain x 2 days. Cellulitis with abscess of LLE On 01/15/25 had presented to wound clinic with new hematoma to left leg and had area I&D. 01/15/25 Wound culture was without growth. In ER afebrile, P: 103, R: 20, BP 105/57, 97% on room air WBC: 12.4, lactate: 2.3, Procalcitonin: 0.1 Tib-fib x-ray: No fracture or osteomyelitis noted Blood cultures NGTD In ER given Rocephin, vancomycin, gentle IVF ordered Treated with Zosyn, vancomycin- vancomycin later switched to Daptomycin Per chart review pt with history pseudomonas on prior wound cultures Tylenol, oxycodone prn pain. Has buprenorphine patch prescribed but hasn't started using it yet. CT LE concerning for cellulitis, no evidence of osteomyelitis Wound nurse consult while inpatient Fall precautions General Surgery consulted, appreciate recs -s/p I and D on 01/21 wound cultx obtained in the OR NGTD Possible Sepsis Evening of 01/23 pt cold and shivering Infectious workup repeated with blood cultures, lactate, chest XRAY, UA, procal, labs Vitals stable Added Daptomycin to IV Zosyn, Vancomycin discontinued Follow labs, workup and culture- NGTD ID consulted, appreciate recs -continue po levofloxacin for 7- 10 days -follow MRSA nares Atrial fibrillation History persistent A-Fib Paroxysmal SVT Borderline tachybrady syndrome In ER HR low 100's. Denies CP, SOB, palpitations Continue metoprolol succinate, Eliquis per recommendations of surgery on 01.23 to resume 01/23- pt with episode of a fib with RVR, HR in 140s to 150. Trop pending. BP stable, pt given one dose of IV Lopressor 5mg with noted improvement of HR to the one-teens. Continue with qPM Toprol dose increased to 75mg BID. Continue to monitor 01/24- improved 01/26- improved 01/27- stable 01/28- stable Acute on Chronic heart failure with preserved ejection fraction (HFpEF) CXR: Stable moderate cardiomegaly with mild pulmonary vascular congestion 02/02/2024 echo: EF: 55-60%, mild concentric LVH, moderate aortic valve sclerosis without significant stenosis, mild mitral regurgitation Pt with significant pitting edema in lower extremities, scrotum, body home oral lasix currently on hold, continue with IV Lasix 40mg BID, monitor BP spironolactone resumed on 01/26, monitor BP and resume as able Monitor Is and Os, daily weights Hypokalemia replete as needed Diabetes mellitus, type II A1c: 8.5 on 08/01/24 Hold home metformin Novolog sliding scale per protocol Diabetic diet current A1c 6.5% COPD (chronic obstructive pulmonary disease) No signs acute exacerbation Continue home inhalers HLD (hyperlipidemia) Continue rosuvastatin Rheumatoid arthritis On Chronic prednisone 5mg daily Continue prednisone Chronic anemia History B12 deficiency Hb. (baseline appears in 's) Continue B12 supplement BPH (benign prostatic hyperplasia) Continue finasteride, tamsulosin DVT Prophylaxis - Eliquis Dispo: telemetry Full Code as per discussion with pt Admission and Anticipated Discharge Date Admission Date: January 17, 2025 Subjective Pt seen in follow up of cellulitis, follows with wound care - referred by wound care to the ER on [facility] on admission, now on levaquin per ID, s/p I&D w/ gen. surgery for LLE abscess Sitting up in chair in NAD no fever, chills, chest pain, shortness of breath, no abd. pain + edema, including scrotal edema. Report leg feels well and is heeling well. urology consulted as well for scrotal edema Review of Systems Review of Systems: All systems reviewed & are unremarkable except as noted in Subjective Physical Exam Physical Exam: General: WDWN elderly male in NAD Head: normocephalic, atraumatic Eyes: conjunctiva non-injected, anicteric ENT: normal inspection external ears, nose, mucous membranes moist Neck: supple Lungs: no respiratory distress, +slight rales at bases bilaterally, no wheezing/rhonchi CV: irregularly irregular Abd: normal BS, soft, non-tender Ext: RLE: scars noted. +mildly diffuse tender to palpation (pt reports chronic). LLE: in dressings now (s/p I&D), nontender Neuro: A&O x 3, no focal deficits noted, normal affect Skin: as above in extremities. +scattered ecchymosis to extremities. warm, dry Results & Data Results & Data Vital Signs (Past 12 Hours) Vital Signs Temp Pulse Resp BP Pulse Ox O2 Del Method 01/30/25 11:23 36.5 C 98 H 20 107/71 97 Room Air 01/30/25 08:00 Room Air 01/30/25 07:44 36.7 C 88 20 101/64 96 Room Air 01/30/25 04:00 36.4 C L 88 18 103/65 96 Room Air Laboratory Results 01/30/25 01/30/25 01/29/25 Range/Units 07:57 05:54 20:18 WBC 8.66 (4.8-10.8) K/ul RBC 2.87 L (4.70-6.10) M/uL Hgb 9.5 L (14.0-18.0) g/dl Hct 29.2 L (42.0-52.0) % MCV 101.7 H (80.0-100.0) fL MCH 33.1 (25.0-34.0) pg MCHC 32.5 (32.0-36.0) g/dL RDW Std Deviation 62.4 H (36.4-46.3) fL RDW Coeff of Roxanna 16.7 H (11.5-14.5) % Plt Count 290 (130-400) K/uL MPV 10.7 (9.4-12.4) fL Sodium 139 (136-145) mmol/L Potassium 3.6 (3.5-5.1) mmol/L Chloride 100 (98-107) mmol/L Carbon Dioxide 30 (21-32) mmol/L Anion Gap 9 (3-11) BUN 17 (6-23) mg/dl Creatinine 1.11 (0.6-1.4) mg/dl Est Cr Clr Drug Dosing 55.5 ml/min eGFR 66.71 BUN/Creatinine Ratio 15.3 (10-20) Glucose 77 (70-99(Fasting)) mg/dl POC Glucose 78 114 H (70-99) mg/dl Calcium 9.0 (8.6-10.3) mg/dl Phosphorus 3.7 (2.5-4.9) mg/dl Magnesium 1.9 (1.7-2.4) mg/dl 01/29/25 01/29/25 Range/Units 17:14 12:01 WBC (4.8-10.8) K/ul RBC (4.70-6.10) M/uL Hgb (14.0-18.0) g/dl Hct (42.0-52.0) % MCV (80.0-100.0) fL MCH (25.0-34.0) pg MCHC (32.0-36.0) g/dL RDW Std Deviation (36.4-46.3) fL RDW Coeff of Roxanna (11.5-14.5) % Plt Count (130-400) K/uL MPV (9.4-12.4) fL Sodium (136-145) mmol/L Potassium (3.5-5.1) mmol/L Chloride (98-107) mmol/L Carbon Dioxide (21-32) mmol/L Anion Gap (3-11) BUN (6-23) mg/dl Creatinine (0.6-1.4) mg/dl Est Cr Clr Drug Dosing ml/min eGFR BUN/Creatinine Ratio (10-20) Glucose (70-99(Fasting)) mg/dl POC Glucose 143 H 74 (70-99) mg/dl Calcium (8.6-10.3) mg/dl Phosphorus (2.5-4.9) mg/dl Magnesium (1.7-2.4) mg/dl Medications Administered Current Inpatient Medications Acetaminophen (Acetaminophen 325 Mg Tab) 650 mg PO Q4H PRN PRN Reason: Pain or Fever Stop: 02/16/25 17:05 Last Admin: 01/28/25 07:54 Dose: 650 mg Apixaban (Apixaban 5 Mg Tablet) 5 mg PO BID [facility] Stop: 02/22/25 18:29 Last Admin: 01/30/25 08:43 Dose: 5 mg Cyanocobalamin (Cyanocobalamin (B-12) 500 Mcg Tablet) 1,000 mcg PO DAILY [facility] Stop: 02/17/25 08:59 Last Admin: 01/30/25 08:42 Dose: 1,000 mcg Dextrose (Dextrose 50% 50 Ml Syringe) 25 - 50 ml IV UD PRN; Protocol PRN Reason: Hypoglycemia Protocol Stop: 02/16/25 17:05 Finasteride (Finasteride 5 Mg Tab) 5 mg PO DAILY [facility] Stop: 02/17/25 08:59 Last Admin: 01/30/25 08:46 Dose: 5 mg Fluticasone/Vilanterol (Fluticasone/Vilanterol 200/25mcg 14 Puffs/Inhaler) 1 puffs INH DAILY [facility] Stop: 02/17/25 08:59 Last Admin: 01/30/25 08:47 Dose: 1 puffs Furosemide (Furosemide 20 Mg Tab) 60 mg PO QAM [facility] Stop: 02/23/25 08:59 Last Admin: 01/28/25 08:02 Dose: 60 mg Furosemide (Furosemide 40 Mg/4 Ml Vial) 40 mg IV BID17 [facility] Stop: 02/27/25 16:59 Last Admin: 01/30/25 08:43 Dose: 40 mg Gabapentin (Gabapentin 300 Mg Cap) 300 mg PO BID [facility] Stop: 02/16/25 20:59 Last Admin: 01/30/25 08:44 Dose: 300 mg Glucagon (Glucagon For Inj 1 Mg Vial) 1 mg SQ UD PRN; Protocol PRN Reason: Hypoglycemia Protocol Stop: 02/16/25 17:05 Glucose (Glucose 40% Gel 15 Gm Tube) 15 - 30 gm PO UD PRN; Protocol PRN Reason: Hypoglycemia Protocol Stop: 02/16/25 17:05 Glucose (Glucose 10 Tab/Tube) 4 - 8 tab PO UD PRN; Protocol PRN Reason: Hypoglycemia Protocol Stop: 02/16/25 17:05 Insulin Aspart (Insulin Aspart Per Unit Charge) 0 units SC ACHS [facility] Stop: 02/16/25 17:05 Last Admin: 01/30/25 08:45 Dose: 3 units Levofloxacin (Levofloxacin 750 Mg Tab) 750 mg PO DAILY@1100 [facility]; Protocol Stop: 02/03/25 16:29 Last Admin: 01/29/25 13:04 Dose: 750 mg Metoprolol Succinate (Metoprolol Succ 25mg Ext Rel Tab) 75 mg PO BID [facility] Stop: 02/22/25 20:59 Last Admin: 01/30/25 08:43 Dose: 75 mg Miscellaneous (Carbohydrates For Hypoglycemia ) 15 - 30 gm PO UD PRN PRN Reason: Hypoglycemia Protocol Stop: 02/16/25 17:05 Ondansetron HCl (Ondansetron Inj 2 Mg/Ml 2 Ml Vial) 4 mg IV Q6H PRN PRN Reason: Nausea Stop: 02/16/25 17:05 Oxycodone HCl (Oxycodone Hcl Ir 5 Mg Tab (Immediate Release)) 5 mg PO Q4H PRN PRN Reason: Severe Pain (Scale 7, 8, 9,10) Stop: 01/31/25 17:05 Last Admin: 01/28/25 11:07 Dose: 5 mg Pantoprazole Sodium (Pantoprazole 40 Mg Tab) 40 mg PO QAM [facility] Stop: 02/17/25 08:59 Last Admin: 01/30/25 08:47 Dose: 40 mg Polyethylene Glycol (Polyethylene (Miralax) 17 Gm Pack) 17 gm PO DAILY PRN PRN Reason: Constipation Stop: 02/16/25 17:05 Potassium Chloride (Potassium Chloride Crtab 20 Meq Tabcr) 20 meq PO BID [facility] Stop: 02/27/25 20:59 Last Admin: 01/30/25 09:01 Dose: 20 meq Prednisone (Prednisone 5 Mg Tab) 5 mg PO DAILY [facility] Stop: 02/17/25 08:59 Last Admin: 01/30/25 08:44 Dose: 5 mg Rosuvastatin Calcium (Rosuvastatin Calcium 20 Mg Tab) 20 mg PO QAM [facility] Stop: 02/17/25 08:59 Last Admin: 01/23/25 08:06 Dose: 20 mg Spironolactone (Spironolactone 25 Mg Tab) 25 mg PO QAM [facility] Stop: 02/26/25 08:59 Last Admin: 01/30/25 08:46 Dose: 25 mg Tamsulosin HCl (Tamsulosin Hcl 0.4 Mg Cap) 0.4 mg PO DAILY [facility] Stop: 02/17/25 08:59 Last Admin: 01/30/25 08:43 Dose: 0.4 mg Vitamin D (Cholecalciferol 25 Mcg (1000 Units) Tab) 50 mcg PO DAILY [facility] Stop: 02/17/25 08:59 Last Admin: 01/30/25 08:43 Dose: 50 mcg
--- NOTE | 2025-01-30 13:29 | Communication Note ---
<Statement entered by Eliu Lundberg, - 01/30/25 21:34> This has been discussed with the surgical team and I agree with this plan Date of Service: January 30, 2025 Patient is known to our service as during this admission he is s/p I&D of left lower extremity wound/hematoma on 01/[address] Hui. Since then it has been dressed per wound care instructions. Apparently today it appears with worsening erythema, induration and tenderness. Discussed with wound care and noted pictures in the chart. Patient has been resumed on Eliquis since 01/23. Given this, we will recommend chemical debridement with Santyl along with daily dressing changes. Medicine will start holding eliquis in the meantime. On Monday someone from general surgery can re-evaluate the need for possible further debridement in the OR vs bedside if indicated allowing his eliquis time to wash out. Please let us know if any questions/concerns until then.
[2025-01-30] MEDS: COLLAGENASE OINT 30 GM TUBE EXT SCH (14:10)
[2025-01-31 06:25] LABS: Hematocrit (blood only) 26.9 % (42.0-52.0); Hemoglobin 8.7 g/dl (14.0-18.0); Mean Corpuscular Hemoglobin 32.5 pg (25.0-34.0); Mean Corpuscular Hgb Conc 32.3 g/dL (32.0-36.0); Mean Corpuscular Volume 100.4 fL (80.0-100.0); Mean Platelet Volume 10.4 fL (9.4-12.4); Platelet Count 278 K/uL (130-400); RDW Coefficient of Variation 16.8 % (11.5-14.5); RDW Standard Deviation 61.5 fL (36.4-46.3); Red Blood Count 2.68 M/uL (4.70-6.10); White Blood Count 8.14 K/ul (4.8-10.8)
[2025-01-31 06:42] LABS: BUN Creatinine Ratio 17.4 (10-20); Calcium 8.8 mg/dl (8.6-10.3); Creatinine Clr Calc Pharmacy 54.1 ml/min; Phosphorus 3.7 mg/dl (2.5-4.9); Potassium 3.7 mmol/L (3.5-5.1)
--- NOTE | 2025-01-31 09:06 | Surgery Progress Note ---
<Statement entered by Eliu Lundberg, - 01/31/25 10:12> I have seen and examined this patient with the surgical PA and I agree with this plan. Date of Service January 31, 2025 Assessment & Plan (1) Skin tear of left upper extremity: Plan: Patient is s/p I&D of infected LLE hematoma on 01/21, we have been asked to re- evaluate patient's wound after eval by wound care yest The wound in the LLE shows improving surrounding erythema, the swelling has decreased, it appears to be in phase of healing, there is some necrotic tissue in wound bed peripherally, small amount of serous drainage We recommend utilizing santyl daily with wound dressing changes to the LLE eliquis is on hold in the meantime in case any procedures bedside vs OR will be entertained in the future Likely see how wound appears after wknd of santyl prior to making any decisions on debrdiement we also changed LUE wound because he was having extensive pain at the site of his skin tear, can recommend bacitracin, xeroform, gauze and kerlex gauze daily to that area Pt seen/examined with dr. lundberg (2) Traumatic hematoma of left lower leg: Admission and Anticipated Discharge Date Admission Date: January 17, 2025 Subjective Patient feeling okay. Reports some pain at LLE wound and LUE wounds. Physical Exam Physical Exam: awake/alert, sitting up in chair, no distress Respiratory: normal respiratory effort Skin: LLE wound evaluated. amount of erythema surrounding has improved, It appears to be in phase of healing, there is some necrotic tissue in wound bed peripherally, small amount of serous drainage. also has a skin tear in the LUE, slight bleeding and + pain with taking off bandage and optifoam causing bruising/skin damage in peripheral border of the dressing Results & Data Vital Signs (Past 12 Hours) Vital Signs Temp Pulse Pulse Resp BP BP Pulse Ox 01/31/25 07:47 97.3 F L 89 21 111/75 96 01/31/25 03:45 98.1 F 110 H 18 94/52 L 96 01/30/25 22:51 98.1 F 68 18 96/63 L 95 01/30/25 22:15 01/30/25 21:47 110 H O2 Del Method 01/31/25 07:47 Room Air 01/31/25 03:45 Room Air 01/30/25 22:51 Room Air 01/30/25 22:15 Room Air 01/30/25 21:47 PG Care Time/CCT Total # of Minutes Spent Total Time Spent with Patient: Total time spent is greater than 50% in coordination of care (as documented) at patient's floor/unit and/or counseling patient: Coding Level of Care Code 45382 Post Operative Follow-Up Diagnoses Skin tear of left upper extremity S41.112A Traumatic hematoma of left lower leg, subsequent encounter S80.12XD Encounter type: subsequent encounter (2) Traumatic hematoma of left lower leg Encounter type: subsequent encounter Qualified Code(s): S80.12XD - Contusion of left lower leg, subsequent encounter
[2025-01-31] MEDS: BACITRACIN OINT 14 GM TUBE EXT STA (10:33)
--- NOTE | 2025-01-31 11:42 | Hospitalist Progress Note ---
Date of Service January 31, 2025 Assessment & Plan (1) Cellulitis of left leg: Plan Patient is 79-year-old male with PMH HTN, persistent atrial fibrillation anticoagulated on Eliquis, paroxysmal SVT, DM II, chronic anemia, rheumatoid arthritis, leg wounds presented to ER with c/o left leg redness and increased pain x 2 days. Cellulitis with abscess of LLE On 01/15/25 had presented to wound clinic with new hematoma to left leg and had area I&D. 01/15/25 Wound culture was without growth. In ER afebrile, P: 103, R: 20, BP 105/57, 97% on room air WBC: 12.4, lactate: 2.3, Procalcitonin: 0.1 Tib-fib x-ray: No fracture or osteomyelitis noted Blood cultures NGTD In ER given Rocephin, vancomycin, gentle IVF ordered Treated with Zosyn, vancomycin- vancomycin later switched to Daptomycin Per chart review pt with history pseudomonas on prior wound cultures Tylenol, oxycodone prn pain. Has buprenorphine patch prescribed but hasn't started using it yet. CT LE concerning for cellulitis, no evidence of osteomyelitis Wound nurse consult while inpatient Fall precautions General Surgery consulted, appreciate recs -s/p I and D on 01/21 wound cultx obtained in the OR NGTD 01/30 Discussed w/ wound care and surgery - plan to re-eval the wound, for now will hold eliquis Possible Sepsis Evening of 01/23 pt cold and shivering Infectious workup repeated with blood cultures, lactate, chest XRAY, UA, procal, labs Vitals stable Added Daptomycin to IV Zosyn, Vancomycin discontinued Follow labs, workup and culture- NGTD ID consulted, appreciate recs -continue po levofloxacin for 7- 10 days -follow MRSA nares Atrial fibrillation History persistent A-Fib Paroxysmal SVT Borderline tachybrady syndrome In ER HR low 100's. Denies CP, SOB, palpitations Continue metoprolol succinate, Eliquis per recommendations of surgery on 01.23 to resume 01/23- pt with episode of a fib with RVR, HR in 140s to 150. Trop pending. BP stable, pt given one dose of IV Lopressor 5mg with noted improvement of HR to the one-teens. Continue with qPM Toprol dose increased to 75mg BID. Continue to monitor 01/24- improved 01/26- improved 01/27- stable 01/28- stable Acute on Chronic heart failure with preserved ejection fraction (HFpEF) CXR: Stable moderate cardiomegaly with mild pulmonary vascular congestion 02/02/2024 echo: EF: 55-60%, mild concentric LVH, moderate aortic valve sclerosis without significant stenosis, mild mitral regurgitation Pt with significant pitting edema in lower extremities, scrotum, body home oral lasix currently on hold, continue with IV Lasix 40mg BID, monitor BP spironolactone resumed on 01/26, monitor BP and resume as able Monitor Is and Os, daily weights Hypokalemia replete as needed Diabetes mellitus, type II A1c: 8.5 on 08/01/24 Hold home metformin Novolog sliding scale per protocol Diabetic diet current A1c 6.5% COPD (chronic obstructive pulmonary disease) No signs acute exacerbation Continue home inhalers HLD (hyperlipidemia) Continue rosuvastatin Rheumatoid arthritis On Chronic prednisone 5mg daily Continue prednisone Chronic anemia History B12 deficiency Hb. (baseline appears in ') Continue B12 supplement BPH (benign prostatic hyperplasia) Continue finasteride, tamsulosin DVT Prophylaxis - Eliquis - now on hold Dispo: telemetry Full Code as per discussion with pt Admission and Anticipated Discharge Date Admission Date: January 17, 2025 Subjective Pt seen in follow up of cellulitis, follows with wound care - referred by wound care to the ER on [facility] on admission, now on levaquin per ID, s/p I&D w/ gen. surgery for LLE abscess Sitting up in bed in [facility] no fever, chills, chest pain, shortness of breath, no abd. pain + edema, including scrotal edema much improved. Surgery and wound care following - plan to re-eval wound on Monday. Eliquis on hold Review of Systems Review of Systems: All systems reviewed & are unremarkable except as noted in Subjective Physical Exam Physical Exam: General: WDWN elderly male in NAD Head: normocephalic, atraumatic Eyes: conjunctiva non-injected, anicteric ENT: normal inspection external ears, nose Neck: supple Lungs: no respiratory distress, decreased breath sounds, no wheezing/rhonchi CV: irregularly irregular Abd: normal BS, soft, non-tender Ext: RLE: scars noted. +mildly diffuse tender to palpation (pt reports chronic). LLE: in dressings now (s/p I&D), nontender Neuro: A&O x 3, no focal deficits noted, normal affect Skin: as above in extremities. +scattered ecchymosis to extremities. warm, dry Results & Data Results & Data Vital Signs (Past 12 Hours) Vital Signs Temp Pulse Resp BP BP Pulse Ox O2 Del Method 01/31/25 07:47 36.3 C L 89 21 111/75 96 Room Air 01/31/25 03:45 36.7 C 110 H 18 94/52 L 96 Room Air Laboratory Results 01/31/25 01/31/25 01/30/25 Range/Units 08:14 06:03 20:19 WBC 8.14 (4.8-10.8) K/ul RBC 2.68 L (4.70-6.10) M/uL Hgb 8.7 L (14.0-18.0) g/dl Hct 26.9 L (42.0-52.0) % MCV 100.4 H (80.0-100.0) fL MCH 32.5 (25.0-34.0) pg MCHC 32.3 (32.0-36.0) g/dL RDW Std Deviation 61.5 H (36.4-46.3) fL RDW Coeff of Roxanna 16.8 H (11.5-14.5) % Plt Count 278 (130-400) K/uL MPV 10.4 (9.4-12.4) fL Sodium 137 (136-145) mmol/L Potassium 3.7 (3.5-5.1) mmol/L Chloride 100 (98-107) mmol/L Carbon Dioxide 30 (21-32) mmol/L Anion Gap 7 (3-11) BUN 20 (6-23) mg/dl Creatinine 1.15 (0.6-1.4) mg/dl Est Cr Clr Drug Dosing 54.1 ml/min eGFR 63.94 BUN/Creatinine Ratio 17.4 (10-20) Glucose 93 (70-99(Fasting)) mg/dl POC Glucose 112 H 167 H (70-99) mg/dl Calcium 8.8 (8.6-10.3) mg/dl Phosphorus 3.7 (2.5-4.9) mg/dl Magnesium 2.0 (1.7-2.4) mg/dl 01/30/25 01/30/25 Range/Units 16:46 11:59 WBC (4.8-10.8) K/ul RBC (4.70-6.10) M/uL Hgb (14.0-18.0) g/dl Hct (42.0-52.0) % MCV (80.0-100.0) fL MCH (25.0-34.0) pg MCHC (32.0-36.0) g/dL RDW Std Deviation (36.4-46.3) fL RDW Coeff of Roxanna (11.5-14.5) % Plt Count (130-400) K/uL MPV (9.4-12.4) fL Sodium (136-145) mmol/L Potassium (3.5-5.1) mmol/L Chloride (98-107) mmol/L Carbon Dioxide (21-32) mmol/L Anion Gap (3-11) BUN (6-23) mg/dl Creatinine (0.6-1.4) mg/dl Est Cr Clr Drug Dosing ml/min eGFR BUN/Creatinine Ratio (10-20) Glucose (70-99(Fasting)) mg/dl POC Glucose 125 H 106 H (70-99) mg/dl Calcium (8.6-10.3) mg/dl Phosphorus (2.5-4.9) mg/dl Magnesium (1.7-2.4) mg/dl Medications Administered Current Inpatient Medications Acetaminophen (Acetaminophen 325 Mg Tab) 650 mg PO Q4H PRN PRN Reason: Pain or Fever Stop: 02/16/25 17:05 Last Admin: 01/28/25 07:54 Dose: 650 mg Apixaban (Apixaban 5 Mg Tablet) 5 mg PO BID [facility] Stop: 02/22/25 18:29 Last Admin: 01/30/25 08:43 Dose: 5 mg Collagenase (Collagenase Oint 30 Gm Tube) 1 appln EXT DAILY [facility] Stop: 03/01/25 13:29 Last Admin: 01/31/25 10:33 Dose: 1 appln Cyanocobalamin (Cyanocobalamin (B-12) 500 Mcg Tablet) 1,000 mcg PO DAILY [facility] Stop: 02/17/25 08:59 Last Admin: 01/31/25 10:29 Dose: 1,000 mcg Dextrose (Dextrose 50% 50 Ml Syringe) 25 - 50 ml IV UD PRN; Protocol PRN Reason: Hypoglycemia Protocol Stop: 02/16/25 17:05 Finasteride (Finasteride 5 Mg Tab) 5 mg PO DAILY [facility] Stop: 02/17/25 08:59 Last Admin: 01/31/25 10:31 Dose: 5 mg Fluticasone/Vilanterol (Fluticasone/Vilanterol 200/25mcg 14 Puffs/Inhaler) 1 puffs INH DAILY [facility] Stop: 02/17/25 08:59 Last Admin: 01/31/25 10:27 Dose: 1 puffs Furosemide (Furosemide 20 Mg Tab) 60 mg PO QAM [facility] Stop: 02/23/25 08:59 Last Admin: 01/28/25 08:02 Dose: 60 mg Furosemide (Furosemide 40 Mg/4 Ml Vial) 40 mg IV BID17 [facility] Stop: 02/27/25 16:59 Last Admin: 01/31/25 10:32 Dose: 40 mg Gabapentin (Gabapentin 300 Mg Cap) 300 mg PO BID [facility] Stop: 02/16/25 20:59 Last Admin: 01/31/25 10:28 Dose: 300 mg Glucagon (Glucagon For Inj 1 Mg Vial) 1 mg SQ UD PRN; Protocol PRN Reason: Hypoglycemia Protocol Stop: 02/16/25 17:05 Glucose (Glucose 40% Gel 15 Gm Tube) 15 - 30 gm PO UD PRN; Protocol PRN Reason: Hypoglycemia Protocol Stop: 02/16/25 17:05 Glucose (Glucose 10 Tab/Tube) 4 - 8 tab PO UD PRN; Protocol PRN Reason: Hypoglycemia Protocol Stop: 02/16/25 17:05 Insulin Aspart (Insulin Aspart Per Unit Charge) 0 units SC ACHS [facility] Stop: 02/16/25 17:05 Last Admin: 01/30/25 20:58 Dose: 1 units Levofloxacin (Levofloxacin 750 Mg Tab) 750 mg PO DAILY@1100 [facility]; Protocol Stop: 02/03/25 16:29 Last Admin: 01/30/25 12:59 Dose: 750 mg Metoprolol Succinate (Metoprolol Succ 25mg Ext Rel Tab) 75 mg PO BID [facility] Stop: 02/22/25 20:59 Last Admin: 01/31/25 10:29 Dose: 75 mg Miscellaneous (Carbohydrates For Hypoglycemia ) 15 - 30 gm PO UD PRN PRN Reason: Hypoglycemia Protocol Stop: 02/16/25 17:05 Ondansetron HCl (Ondansetron Inj 2 Mg/Ml 2 Ml Vial) 4 mg IV Q6H PRN PRN Reason: Nausea Stop: 02/16/25 17:05 Oxycodone HCl (Oxycodone Hcl Ir 5 Mg Tab (Immediate Release)) 5 mg PO Q4H PRN PRN Reason: Severe Pain (Scale 7, 8, 9,10) Stop: 01/31/25 17:05 Last Admin: 01/30/25 23:24 Dose: 5 mg Pantoprazole Sodium (Pantoprazole 40 Mg Tab) 40 mg PO QAM [facility] Stop: 02/17/25 08:59 Last Admin: 01/31/25 10:30 Dose: 40 mg Polyethylene Glycol (Polyethylene (Miralax) 17 Gm Pack) 17 gm PO DAILY PRN PRN Reason: Constipation Stop: 02/16/25 17:05 Potassium Chloride (Potassium Chloride Crtab 20 Meq Tabcr) 20 meq PO BID [facility] Stop: 02/27/25 20:59 Last Admin: 01/31/25 10:41 Dose: 20 meq Prednisone (Prednisone 5 Mg Tab) 5 mg PO DAILY [facility] Stop: 02/17/25 08:59 Last Admin: 01/31/25 10:30 Dose: 5 mg Rosuvastatin Calcium (Rosuvastatin Calcium 20 Mg Tab) 20 mg PO QAM [facility] Stop: 02/17/25 08:59 Last Admin: 01/23/25 08:06 Dose: 20 mg Spironolactone (Spironolactone 25 Mg Tab) 25 mg PO QAM [facility] Stop: 02/26/25 08:59 Last Admin: 01/31/25 10:30 Dose: 25 mg Tamsulosin HCl (Tamsulosin Hcl 0.4 Mg Cap) 0.4 mg PO DAILY [facility] Stop: 02/17/25 08:59 Last Admin: 01/31/25 10:30 Dose: 0.4 mg Vitamin D (Cholecalciferol 25 Mcg (1000 Units) Tab) 50 mcg PO DAILY [facility] Stop: 02/17/25 08:59 Last Admin: 01/31/25 10:28 Dose: 50 mcg
--- NOTE | 2025-02-01 10:31 | Hospitalist Progress Note ---
Date of Service February 01, 2025 Assessment & Plan (1) Cellulitis of left leg: Plan Patient is 79-year-old male with PMH HTN, persistent atrial fibrillation anticoagulated on Eliquis, paroxysmal SVT, DM II, chronic anemia, rheumatoid arthritis, leg wounds presented to ER with c/o left leg redness and increased pain x 2 days. Cellulitis with abscess of LLE On 01/15/25 had presented to wound clinic with new hematoma to left leg and had area I&D. 01/15/25 Wound culture was without growth. In ER afebrile, P: 103, R: 20, BP 105/57, 97% on room air WBC: 12.4, lactate: 2.3, Procalcitonin: 0.1 Tib-fib x-ray: No fracture or osteomyelitis noted Blood cultures NGTD In ER given Rocephin, vancomycin, gentle IVF ordered Treated with Zosyn, vancomycin- vancomycin later switched to Daptomycin Per chart review pt with history pseudomonas on prior wound cultures Tylenol, oxycodone prn pain. Has buprenorphine patch prescribed but hasn't started using it yet. CT LE concerning for cellulitis, no evidence of osteomyelitis Wound nurse consult while inpatient Fall precautions General Surgery consulted, appreciate recs -s/p I and D on 01/21 wound cultx obtained in the OR NGTD 01/30 Discussed w/ wound care and surgery - plan to re-eval the wound, for now will hold eliquis 01/31 Plan for bedside debridement by surgery tmrw Possible Sepsis Evening of 01/23 pt cold and shivering Infectious workup repeated with blood cultures, lactate, chest XRAY, UA, procal, labs Vitals stable Added Daptomycin to IV Zosyn, Vancomycin discontinued Follow labs, workup and culture- NGTD ID consulted, appreciate recs -continue po levofloxacin for 7- 10 days -follow MRSA nares Atrial fibrillation History persistent A-Fib Paroxysmal SVT Borderline tachybrady syndrome In ER HR low 100's. Denies CP, SOB, palpitations Continue metoprolol succinate, Eliquis per recommendations of surgery on 01.23 to resume 01/23- pt with episode of a fib with RVR, HR in 140s to 150. Trop pending. BP stable, pt given one dose of IV Lopressor 5mg with noted improvement of HR to the one-teens. Continue with qPM Toprol dose increased to 75mg BID. Continue to monitor Now improved, HR controlled Acute on Chronic heart failure with preserved ejection fraction (HFpEF) CXR: Stable moderate cardiomegaly with mild pulmonary vascular congestion 02/02/2024 echo: EF: 55-60%, mild concentric LVH, moderate aortic valve sclerosis without significant stenosis, mild mitral regurgitation Pt with significant pitting edema in lower extremities, scrotum, body -> now resolved back on home oral lasix , monitor BP spironolactone resumed on 01/26, monitor BP and resume as able Monitor Is and Os, daily weights Hypokalemia replete as needed Diabetes mellitus, type II A1c: 8.5 on 08/01/24 Hold home metformin Novolog sliding scale per protocol Diabetic diet current A1c 6.5% COPD (chronic obstructive pulmonary disease) No signs acute exacerbation Continue home inhalers HLD (hyperlipidemia) Continue rosuvastatin Rheumatoid arthritis On Chronic prednisone 5mg daily Continue prednisone Chronic anemia History B12 deficiency Hb. (baseline appears in ) Continue B12 supplement BPH (benign prostatic hyperplasia) Continue finasteride, tamsulosin DVT Prophylaxis - Eliquis - now on hold Dispo: telemetry Full Code as per discussion with pt Admission and Anticipated Discharge Date Admission Date: January 17, 2025 Subjective Pt seen in follow up of cellulitis, follows with wound care - referred by wound care [facility] on admission, now on Levaquin per ID, s/p I&D w/ gen. surgery for LLE abscess Sitting up in bed in NAD no fever, chills, chest pain, shortness of breath, no abd. pain + edema, including scrotal edema much improved. Surgery and wound care following - plan to re-eval wound / debridement on Monday. Eliquis on hold Review of Systems Review of Systems: All systems reviewed & are unremarkable except as noted in Subjective Physical Exam Physical Exam: General: WDWN elderly male in NAD Head: normocephalic, atraumatic Eyes: conjunctiva non-injected, anicteric ENT: normal inspection external ears, nose Neck: supple Lungs: no respiratory distress, decreased breath sounds, no wheezing/rhonchi CV: irregularly irregular Abd: normal BS, soft, non-tender Ext: RLE: scars noted. + mildly diffuse tender to palpation (pt reports chronic). LLE: in dressings now (s/p I&D), nontender Neuro: A&O x 3, no focal deficits noted, normal affect Skin: as above in extremities. + scattered ecchymosis to extremities. warm, dry Results & Data Results & Data Vital Signs (Past 12 Hours) Vital Signs Temp Pulse Pulse Resp BP Pulse Ox O2 Del Method 02/01/25 10:26 90 02/01/25 08:34 36.6 C 78 16 102/64 94 Room Air 02/01/25 08:06 Room Air 02/01/25 04:00 36.5 C 102 H 18 112/68 94 Room Air 01/31/25 22:52 36.6 C 98 H 18 97/61 L 96 Room Air Laboratory Results 02/01/25 01/31/25 01/31/25 Range/Units 07:58 19:53 17:08 POC Glucose 77 150 H 194 H (70-99) mg/dl 01/31/25 Range/Units 11:49 POC Glucose 112 H (70-99) mg/dl Medications Administered Current Inpatient Medications Acetaminophen (Acetaminophen 325 Mg Tab) 650 mg PO Q4H PRN PRN Reason: Pain or Fever Stop: 02/16/25 17:05 Last Admin: 01/31/25 20:39 Dose: 650 mg Apixaban (Apixaban 5 Mg Tablet) 5 mg PO BID [facility] Stop: 02/22/25 18:29 Last Admin: 01/30/25 08:43 Dose: 5 mg Collagenase (Collagenase Oint 30 Gm Tube) 1 appln EXT DAILY [facility] Stop: 03/01/25 13:29 Last Admin: 02/01/25 08:17 Dose: 1 appln Cyanocobalamin (Cyanocobalamin (B-12) 500 Mcg Tablet) 1,000 mcg PO DAILY [facility] Stop: 02/17/25 08:59 Last Admin: 02/01/25 08:16 Dose: 1,000 mcg Dextrose (Dextrose 50% 50 Ml Syringe) 25 - 50 ml IV UD PRN; Protocol PRN Reason: Hypoglycemia Protocol Stop: 02/16/25 17:05 Finasteride (Finasteride 5 Mg Tab) 5 mg PO DAILY [facility] Stop: 02/17/25 08:59 Last Admin: 02/01/25 08:17 Dose: 5 mg Fluticasone/Vilanterol (Fluticasone/Vilanterol 200/25mcg 14 Puffs/Inhaler) 1 puffs INH DAILY [facility] Stop: 02/17/25 08:59 Last Admin: 02/01/25 08:21 Dose: 1 puffs Furosemide (Furosemide 20 Mg Tab) 60 mg PO QAM [facility] Stop: 02/23/25 08:59 Last Admin: 02/01/25 10:30 Dose: 60 mg Gabapentin (Gabapentin 300 Mg Cap) 300 mg PO BID [facility] Stop: 02/16/25 20:59 Last Admin: 02/01/25 08:16 Dose: 300 mg Glucagon (Glucagon For Inj 1 Mg Vial) 1 mg SQ UD PRN; Protocol PRN Reason: Hypoglycemia Protocol Stop: 02/16/25 17:05 Glucose (Glucose 40% Gel 15 Gm Tube) 15 - 30 gm PO UD PRN; Protocol PRN Reason: Hypoglycemia Protocol Stop: 02/16/25 17:05 Glucose (Glucose 10 Tab/Tube) 4 - 8 tab PO UD PRN; Protocol PRN Reason: Hypoglycemia Protocol Stop: 02/16/25 17:05 Insulin Aspart (Insulin Aspart Per Unit Charge) [address] [facility] Stop: 02/16/25 17:05 Last Admin: 02/01/25 09:26 Dose: 3 units Levofloxacin (Levofloxacin 750 Mg Tab) 750 mg PO DAILY@1100 [facility]; Protocol Stop: 02/03/25 16:29 Last Admin: 01/31/25 16:41 Dose: 750 mg Metoprolol Succinate (Metoprolol Succ 25mg Ext Rel Tab) 75 mg PO BID [facility] Stop: 02/22/25 20:59 Last Admin: 02/01/25 08:19 Dose: 75 mg Miscellaneous (Carbohydrates For Hypoglycemia ) 15 - 30 gm PO UD PRN PRN Reason: Hypoglycemia Protocol Stop: 02/16/25 17:05 Ondansetron HCl (Ondansetron Inj 2 Mg/Ml 2 Ml Vial) 4 mg IV Q6H PRN PRN Reason: Nausea Stop: 02/16/25 17:05 Pantoprazole Sodium (Pantoprazole 40 Mg Tab) 40 mg PO QAM [facility] Stop: 02/17/25 08:59 Last Admin: 02/01/25 08:16 Dose: 40 mg Polyethylene Glycol (Polyethylene (Miralax) 17 Gm Pack) 17 gm PO DAILY PRN PRN Reason: Constipation Stop: 02/16/25 17:05 Potassium Chloride (Potassium Chloride Crtab 20 Meq Tabcr) 20 meq PO BID [facility] Stop: 02/27/25 20:59 Last Admin: 02/01/25 09:26 Dose: 20 meq Prednisone (Prednisone 5 Mg Tab) 5 mg PO DAILY [facility] Stop: 02/17/25 08:59 Last Admin: 02/01/25 08:16 Dose: 5 mg Rosuvastatin Calcium (Rosuvastatin Calcium 20 Mg Tab) 20 mg PO QAM [facility] Stop: 02/17/25 08:59 Last Admin: 01/23/25 08:06 Dose: 20 mg Spironolactone (Spironolactone 25 Mg Tab) 25 mg PO QAM [facility] Stop: 02/26/25 08:59 Last Admin: 02/01/25 08:17 Dose: 25 mg Tamsulosin HCl (Tamsulosin Hcl 0.4 Mg Cap) 0.4 mg PO DAILY [facility] Stop: 02/17/25 08:59 Last Admin: 02/01/25 08:16 Dose: 0.4 mg Vitamin D (Cholecalciferol 25 Mcg (1000 Units) Tab) 50 mcg PO DAILY [facility] Stop: 02/17/25 08:59 Last Admin: 02/01/25 08:16 Dose: 50 mcg
--- NOTE | 2025-02-01 11:17 | Surgery Progress Note ---
Date of Service February 01, 2025 Assessment & Plan (1) Open wound: Plan: Continue to hold his Eliquis until tomorrow I will plan on a bedside debridement, although the wound overall looks good and is fairly shallow but agree cleaning it up would likely aid in healing (2) Hematoma of right lower leg: Admission and Anticipated Discharge Date Admission Date: January 17, 2025 Subjective Patient seen and examined. No increased pain in his left lower extremity wound. No fevers or chills. His Eliquis has been held since . Review of Systems Constitutional: no fever and no chills Respiratory: no cough and no dyspnea Cardiovascular: no chest pain and no dyspnea on exertion Gastrointestinal: no abdominal pain, no nausea and no vomiting Musculoskeletal: no back pain and no neck pain Integumentary: + wounds; no acne, no sores and no eryth scott Hematologic / Lymphatic: no easy bleeding and no easy bruising Physical Exam Constitutional: WD/WN, vitals as above Eyes: PERRL, conjunctivae normal, anicteric sclerae ENMT: external ear and nose normal, oropharynx normal Neck: trachea midline, no thyromegaly Respiratory: normal respiratory effort, lungs clear to auscultation Cardiovascular: RRR, no murmur, no edema Gastrointestinal (Abdomen): normal bowel sounds, soft, nontender, no hepatosplenomegaly Musculoskeletal: no cyanosis or clubbing, extremities motor strength 5/5 Skin: no rashes, warm and dry Wound of the left lower extremity with some eschar peripherally, no purulence Neurologic: PERRL, EOMI, accommodation nl, no face palsy, no dysarthria Results & Data Vital Signs (Past 12 Hours) Vital Signs Temp Pulse Pulse Resp BP Pulse Ox O2 Del Method 02/01/25 10:26 90 02/01/25 08:34 36.6 C 78 16 102/64 94 Room Air 02/01/25 08:06 Room Air 02/01/25 04:00 36.5 C 102 H 18 112/68 94 Room Air PG Care Time/CCT Total # of Minutes Spent Total Time Spent with Patient: Total time spent is greater than 50% in coordination of care (as documented) at patient's floor/unit and/or counseling patient: Coding Level of Care Code 44788 SUB INP/OBS CARE 11/02MIN Diagnoses Open wound T14.8XXA Hematoma of right lower leg S80.11XA
[2025-02-02 06:07] LABS: Hematocrit (blood only) 29.1 % (42.0-52.0); Hemoglobin 9.4 g/dl (14.0-18.0); Mean Corpuscular Hemoglobin 32.6 pg (25.0-34.0); Mean Corpuscular Hgb Conc 32.3 g/dL (32.0-36.0); Mean Platelet Volume 10.6 fL (9.4-12.4); Platelet Count 282 K/uL (130-400); RDW Coefficient of Variation 16.3 % (11.5-14.5); Red Blood Count 2.88 M/uL (4.70-6.10)
[2025-02-02 06:27] LABS: BUN Creatinine Ratio 20.6 (10-20); Calcium 9.1 mg/dl (8.6-10.3); Creatinine Clr Calc Pharmacy 58.1 ml/min; Magnesium 2.1 mg/dl (1.7-2.4); Phosphorus 3.6 mg/dl (2.5-4.9); Potassium 3.8 mmol/L (3.5-5.1)
--- NOTE | 2025-02-02 09:30 | Hospitalist Progress Note ---
Date of Service February 02, 2025 Assessment & Plan (1) Cellulitis of left leg: Plan Patient is 79-year-old male with PMH HTN, persistent atrial fibrillation anticoagulated on Eliquis, paroxysmal SVT, DM II, chronic anemia, rheumatoid arthritis, leg wounds presented to ER with c/o left leg redness and increased pain x 2 days. Cellulitis with abscess of LLE On 01/15/25 had presented to wound clinic with new hematoma to left leg and had area I&D. 01/15/25 Wound culture was without growth. In ER afebrile, P: 103, R: 20, BP 105/57, 97% on room air WBC: 12.4, lactate: 2.3, Procalcitonin: 0.1 Tib-fib x-ray: No fracture or osteomyelitis noted Blood cultures NGTD In ER given Rocephin, vancomycin, gentle IVF ordered Treated with Zosyn, vancomycin- vancomycin later switched to Daptomycin Per chart review pt with history pseudomonas on prior wound cultures Tylenol, oxycodone prn pain. Has buprenorphine patch prescribed but hasn't started using it yet. CT LE concerning for cellulitis, no evidence of osteomyelitis Wound nurse consult while inpatient Fall precautions General Surgery consulted, appreciate recs -s/p I and D on 01/21 wound cultx obtained in the OR NGTD 01/30 Discussed w/ wound care and surgery - plan to re-eval the wound, for now will hold eliquis 02/02 s/p debridement by surgery at the bedside -> resume eliquis tmrw Possible Sepsis Evening of 01/23 pt cold and shivering Infectious workup repeated with blood cultures, lactate, chest XRAY, UA, procal, labs Vitals stable Added Daptomycin to IV Zosyn, Vancomycin discontinued Follow labs, workup and culture- NGTD ID consulted, appreciate recs -continue po levofloxacin for 7- 10 days -follow MRSA nares Atrial fibrillation History persistent A-Fib Paroxysmal SVT Borderline tachybrady syndrome In ER HR low 100's. Denies CP, SOB, palpitations Continue metoprolol succinate, Eliquis per recommendations of surgery on 01.23 to resume 01/23- pt with episode of a fib with RVR, HR in 140s to 150. Trop pending. BP stable, pt given one dose of IV Lopressor 5mg with noted improvement of HR to the one-teens. Continue with qPM Toprol dose increased to 75mg BID. Continue to monitor Now improved, HR controlled Acute on Chronic heart failure with preserved ejection fraction (HFpEF) CXR: Stable moderate cardiomegaly with mild pulmonary vascular congestion 02/02/2024 echo: EF: 55-60%, mild concentric LVH, moderate aortic valve sclerosis without significant stenosis, mild mitral regurgitation Pt with significant pitting edema in lower extremities, scrotum, body -> now resolved back on home oral lasix , monitor BP spironolactone resumed on 01/26, monitor BP and resume as able Monitor Is and Os, daily weights Hypokalemia replete as needed Diabetes mellitus, type II A1c: 8.5 on 08/01/24 Hold home metformin Novolog sliding scale per protocol Diabetic diet current A1c 6.5% COPD (chronic obstructive pulmonary disease) No signs acute exacerbation Continue home inhalers HLD (hyperlipidemia) Continue rosuvastatin Rheumatoid arthritis On Chronic prednisone 5mg daily Continue prednisone Chronic anemia History B12 deficiency Hb. (baseline appears in 's) Continue B12 supplement BPH (benign prostatic hyperplasia) Continue finasteride, tamsulosin DVT Prophylaxis - Eliquis - now on hold Dispo: telemetry Full Code as per discussion with pt Admission and Anticipated Discharge Date Admission Date: January 17, 2025 Subjective Pt seen in follow up of cellulitis, follows with wound care - referred by wound care to the ER on vanco zosyn on admission, now on Levaquin per ID, s/p I&D w/ gen. surgery for LLE abscess Today debridement w/ surgery at the bedside, discussed w/ surgery at the bedside - ok to resume eliquis tmrw Sitting up in bed in NAD no fever, chills, chest pain, shortness of breath, no abd. pain + edema, including scrotal edema much improved. Surgery and wound care following Review of Systems Review of Systems: All systems reviewed & are unremarkable except as noted in Subjective Physical Exam Physical Exam: General: WDWN elderly male in NAD Head: normocephalic, atraumatic Eyes: conjunctiva non-injected, anicteric ENT: normal inspection external ears, nose Neck: supple Lungs: no respiratory distress, decreased breath sounds, no wheezing/rhonchi CV: irregularly irregular Abd: normal BS, soft, non-tender Ext: RLE: scars noted. LLE: in dressings now (s/p I&D), nontender Neuro: A&O x 3, no focal deficits noted, normal affect Skin: as above in extremities. + scattered ecchymosis to extremities. warm, dry Results & Data Results & Data Vital Signs (Past 12 Hours) Vital Signs Temp Pulse Pulse Resp BP Pulse Ox O2 Del Method 02/02/25 07:52 36.3 C L 84 18 111/66 94 Room Air 02/02/25 07:51 Room Air 02/02/25 07:12 87 02/02/25 04:00 36.5 C 87 18 96/61 L 97 Room Air 02/01/25 23:00 36.5 C 97 H 18 97/64 L 93 Room Air 02/01/25 22:03 93 H Laboratory Results 02/02/25 02/02/25 02/01/25 Range/Units 08:17 05:42 20:04 WBC 8.70 (4.8-10.8) K/ul RBC 2.88 L (4.70-6.10) M/uL Hgb 9.4 L (14.0-18.0) g/dl Hct 29.1 L (42.0-52.0) % MCV 101.0 H (80.0-100.0) fL MCH 32.6 (25.0-34.0) pg MCHC 32.3 (32.0-36.0) g/dL RDW Std Deviation 61.0 H (36.4-46.3) fL RDW Coeff of Roxanna 16.3 H (11.5-14.5) % Plt Count 282 (130-400) K/uL MPV 10.6 (9.4-12.4) fL Sodium 138 (136-145) mmol/L Potassium 3.8 (3.5-5.1) mmol/L Chloride 101 (98-107) mmol/L Carbon Dioxide 31 (21-32) mmol/L Anion Gap 6 (3-11) BUN 22 (6-23) mg/dl Creatinine 1.07 (0.6-1.4) mg/dl Est Cr Clr Drug Dosing 58.1 ml/min eGFR 69.72 BUN/Creatinine Ratio 20.6 H (10-20) Glucose 88 (70-99(Fasting)) mg/dl POC Glucose 100 H 118 H (70-99) mg/dl Calcium 9.1 (8.6-10.3) mg/dl Phosphorus 3.6 (2.5-4.9) mg/dl Magnesium 2.1 (1.7-2.4) mg/dl 02/01/25 02/01/25 Range/Units 16:43 11:41 WBC (4.8-10.8) K/ul RBC (4.70-6.10) M/uL Hgb (14.0-18.0) g/dl Hct (42.0-52.0) % MCV (80.0-100.0) fL MCH (25.0-34.0) pg MCHC (32.0-36.0) g/dL RDW Std Deviation (36.4-46.3) fL RDW Coeff of Roxanna (11.5-14.5) % Plt Count (130-400) K/uL MPV (9.4-12.4) fL Sodium (136-145) mmol/L Potassium (3.5-5.1) mmol/L Chloride (98-107) mmol/L Carbon Dioxide (21-32) mmol/L Anion Gap (3-11) BUN (6-23) mg/dl Creatinine (0.6-1.4) mg/dl Est Cr Clr Drug Dosing ml/min eGFR BUN/Creatinine Ratio (10-20) Glucose (70-99(Fasting)) mg/dl POC Glucose 103 H 132 H (70-99) mg/dl Calcium (8.6-10.3) mg/dl Phosphorus (2.5-4.9) mg/dl Magnesium (1.7-2.4) mg/dl Medications Administered Current Inpatient Medications Acetaminophen (Acetaminophen 325 Mg Tab) 650 mg PO Q4H PRN PRN Reason: Pain or Fever Stop: 02/16/25 17:05 Last Admin: 02/01/25 20:20 Dose: 650 mg Apixaban (Apixaban 5 Mg Tablet) 5 mg PO BID [facility] Stop: 02/22/25 18:29 Last Admin: 01/30/25 08:43 Dose: 5 mg Collagenase (Collagenase Oint 30 Gm Tube) 1 appln EXT DAILY [facility] Stop: 03/01/25 13:29 Last Admin: 02/02/25 09:15 Dose: 1 appln Cyanocobalamin (Cyanocobalamin (B-12) 500 Mcg Tablet) 1,000 mcg PO DAILY [facility] Stop: 02/17/25 08:59 Last Admin: 02/02/25 09:13 Dose: 1,000 mcg Dextrose (Dextrose 50% 50 Ml Syringe) 25 - 50 ml IV UD PRN; Protocol PRN Reason: Hypoglycemia Protocol Stop: 02/16/25 17:05 Finasteride (Finasteride 5 Mg Tab) 5 mg PO DAILY [facility] Stop: 02/17/25 08:59 Last Admin: 02/02/25 09:17 Dose: 5 mg Fluticasone/Vilanterol (Fluticasone/Vilanterol 200/25mcg 14 Puffs/Inhaler) 1 puffs INH DAILY [facility] Stop: 02/17/25 08:59 Last Admin: 02/02/25 09:16 Dose: 1 puffs Furosemide (Furosemide 20 Mg Tab) 60 mg PO QAM [facility] Stop: 02/23/25 08:59 Last Admin: 02/02/25 09:12 Dose: 60 mg Gabapentin (Gabapentin 300 Mg Cap) 300 mg PO BID [facility] Stop: 02/16/25 20:59 Last Admin: 02/02/25 09:13 Dose: 300 mg Glucagon (Glucagon For Inj 1 Mg Vial) 1 mg SQ UD PRN; Protocol PRN Reason: Hypoglycemia Protocol Stop: 02/16/25 17:05 Glucose (Glucose 40% Gel 15 Gm Tube) 15 - 30 gm PO UD PRN; Protocol PRN Reason: Hypoglycemia Protocol Stop: 02/16/25 17:05 Glucose (Glucose 10 Tab/Tube) 4 - 8 tab PO UD PRN; Protocol PRN Reason: Hypoglycemia Protocol Stop: 02/16/25 17:05 Insulin Aspart (Insulin Aspart Per Unit Charge) 0 units SC ACHS [facility] Stop: 02/16/25 17:05 Last Admin: 02/02/25 09:18 Dose: 3 units Levofloxacin (Levofloxacin 750 Mg Tab) 750 mg PO DAILY@1100 STEPHEN; Protocol Stop: 02/03/25 16:29 Last Admin: 02/01/25 11:38 Dose: 750 mg Metoprolol Succinate (Metoprolol Succ 25mg Ext Rel Tab) 75 mg PO BID [facility] Stop: 02/22/25 20:59 Last Admin: 02/02/25 09:12 Dose: 75 mg Miscellaneous (Carbohydrates For Hypoglycemia ) 15 - 30 gm PO UD PRN PRN Reason: Hypoglycemia Protocol Stop: 02/16/25 17:05 Ondansetron HCl (Ondansetron Inj 2 Mg/Ml 2 Ml Vial) 4 mg IV Q6H PRN PRN Reason: Nausea Stop: 02/16/25 17:05 Pantoprazole Sodium (Pantoprazole 40 Mg Tab) 40 mg PO QAM [facility] Stop: 02/17/25 08:59 Last Admin: 02/02/25 09:12 Dose: 40 mg Polyethylene Glycol (Polyethylene (Miralax) 17 Gm Pack) 17 gm PO DAILY PRN PRN Reason: Constipation Stop: 02/16/25 17:05 Potassium Chloride (Potassium Chloride Crtab 20 Meq Tabcr) 20 meq PO BID [facility] Stop: 02/27/25 20:59 Last Admin: 02/02/25 09:24 Dose: 20 meq Prednisone (Prednisone 5 Mg Tab) 5 mg PO DAILY [facility] Stop: 02/17/25 08:59 Last Admin: 02/02/25 09:13 Dose: 5 mg Rosuvastatin Calcium (Rosuvastatin Calcium 20 Mg Tab) 20 mg PO QAM [facility] Stop: 02/17/25 08:59 Last Admin: 01/23/25 08:06 Dose: 20 mg Spironolactone (Spironolactone 25 Mg Tab) 25 mg PO QAM [facility] Stop: 02/26/25 08:59 Last Admin: 02/02/25 09:17 Dose: 25 mg Tamsulosin HCl (Tamsulosin Hcl 0.4 Mg Cap) 0.4 mg PO DAILY [facility] Stop: 02/17/25 08:59 Last Admin: 02/02/25 09:13 Dose: 0.4 mg Vitamin D (Cholecalciferol 25 Mcg (1000 Units) Tab) 50 mcg PO DAILY [facility] Stop: 02/17/25 08:59 Last Admin: 02/02/25 09:12 Dose: 50 mcg
--- NOTE | 2025-02-02 13:56 | Surgery Progress Note ---
Date of Service February 02, 2025 Assessment & Plan (1) Open wound: Plan: The wound was debrided at bedside Would make sure wound care sees him tomorrow and he should follow-up back at the wound center where he is known well Can restart his Eliquis tomorrow morning Surgery will sign off at this time, please call with any questions or concerns (2) Hematoma of right lower leg: Admission and Anticipated Discharge Date Admission Date: January 17, 2025 Subjective Patient seen and examined. Denies any increased pain in his left leg. His El iquis has been held. Afebrile. Review of Systems Constitutional: no fever and no chills Respiratory: no cough and no dyspnea Cardiovascular: no chest pain and no dyspnea on exertion Gastrointestinal: no abdominal pain, no nausea and no vomiting Musculoskeletal: no back pain and no neck pain Integumentary: + wounds; no acne, no sores and no eryth scott Hematologic / Lymphatic: no easy bleeding and no easy bruising Physical Exam Constitutional: WD/WN, vitals as above Eyes: PERRL, conjunctivae normal, anicteric sclerae ENMT: external ear and nose normal, oropharynx normal Neck: trachea midline, no thyromegaly Respiratory: normal respiratory effort, lungs clear to auscultation Cardiovascular: RRR, no murmur, no edema Gastrointestinal (Abdomen): normal bowel sounds, soft, nontender, no hepatosplenomegaly Musculoskeletal: no cyanosis or clubbing, extremities motor strength 5/5 Skin: no rashes, warm and dry 8 x 5.5 cm wound of the left lower extre mity with some eschar peripherally, no purulence, slough present over the base of the wound Neurologic: PERRL, EOMI, accommodation nl, no face palsy, no dysarthria Results & Data Vital Signs (Past 12 Hours) Vital Signs Temp Pulse Pulse Pulse Resp BP Pulse Ox 02/02/25 11:33 36.6 C 96 H 16 108/76 97 02/02/25 07:52 36.3 C L 84 18 111/66 94 02/02/25 07:51 02/02/25 07:12 87 02/02/25 04:00 36.5 C 87 18 96/61 L 97 O2 Del Method 02/02/25 11:33 Room Air 02/02/25 07:52 Room Air 02/02/25 07:51 Room Air 02/02/25 07:12 02/02/25 04:00 Room Air PG Care Time/CCT Total # of Minutes Spent Total Time Spent with Patient: Total time spent is greater than 50% in coordination of care (as documented) at patient's floor/unit and/or counseling patient: Coding Level of Care Code 09220 SUB INP/OBS CARE 11/02MIN Diagnoses Open wound T14.8XXA Hematoma of right lower leg S80.11XA
--- NOTE | 2025-02-02 13:59 | Operative Report ---
PG Post Operative Report Pre & Post Diagnosis Operation Date: 01/21/25 09:50 Pre-Op Diagnosis: Open wound left lower leg Post-Op Diagnosis: Open wound left lower leg I identified the patient and participated in the time-out.: Yes Procedure Operation Date: 01/21/25 09:50 Actual Procedures p excisional debridement of left lower extremity wound measuring 8.0 cm x 5.5 cm down to subcutaneous tissue (Left) -Jesús Mccollum DO Surgeon Jesús Mccollum DO Bee [employer]ber None Estimated Blood Loss 1 Findings Consistent with Post-Op Diagnosis Specimens None Drains None Anesthesia Type None Complications none Indications 79-year-old male with an open wound to the left lower extremity Description of Procedure The patient was kept at his hospital litter in the supine position. The left low er extremity wound was debrided of slough and necrotic subcutaneous tissue using a curette. The wound measured 8 cm x 5.5 cm. Healthy bleeding tissue was encountered. The patient tolerated the procedure well with minimal pain. This procedure represents an excisional debridement down to subcutaneous tissue of 44 cm. I attest to the content of the Intraoperative Record and any orders documented therein. Any exceptions are noted below.
[2025-02-03 06:11] LABS: Hematocrit (blood only) 29.8 % (42.0-52.0); Hemoglobin 9.5 g/dl (14.0-18.0); Mean Corpuscular Hemoglobin 32.2 pg (25.0-34.0); Mean Corpuscular Hgb Conc 31.9 g/dL (32.0-36.0); Mean Platelet Volume 10.6 fL (9.4-12.4); Platelet Count 296 K/uL (130-400); RDW Coefficient of Variation 16.2 % (11.5-14.5); RDW Standard Deviation 60.4 fL (36.4-46.3); Red Blood Count 2.95 M/uL (4.70-6.10); White Blood Count 9.21 K/ul (4.8-10.8)
[2025-02-03 06:37] LABS: BUN Creatinine Ratio 18.7 (10-20); Calcium 8.9 mg/dl (8.6-10.3); Creatinine Clr Calc Pharmacy 49.9 ml/min; Magnesium 2.1 mg/dl (1.7-2.4); Phosphorus 3.5 mg/dl (2.5-4.9); Potassium 3.8 mmol/L (3.5-5.1)
--- NOTE | 2025-02-03 08:55 | Urology Progress Note ---
Date of Service February 03, 2025 Assessment & Plan (1) Scrotal swelling: (2) Penile swelling: Plan Reconsulted for pale/nonblanching skin to glans penis Had external catheter which was removed last night due to pain/too tight per his report Nursing reported glans penis was pale following removal Since removal, penile pain has resolved and was likely due to constriction from external cath He is voiding without issue Still with painless penile and scrotal swelling - hydroceles and edema likely from anasarca Could do scrotal elevation to help with swelling Continue medical management and other care per primary team No urological intervention warranted Will follow-up with urology outpatient. Urology will sign off - Please contact our service for any questions or concerns Admission and Anticipated Discharge Date Admission Date: January 17, 2025 Subjective Pt seen at bedside today Awake and eating breakfast on arrival No acute distress Reports he is circumcised. Had an external urinary cath in place which was removed last night - He reports the catheter was too tight and painful Pain resolved following cath removal Voiding without issue Still with penile and scrotal edema Review of Systems Constitutional: as per Subjective / HPI Genitourinary: + as per Subjective / HPI Physical Exam Constitutional: no acute distress Respiratory: no respiratory distress and no labored breathing Neurologic: awake Psychiatric: A+Ox3, euthymic affect Genitourinary: Penile and scrotal edema. No tenderness to palpitation. No erythema. No open areas or drainage. Results & Data Vital Signs (Past 12 Hours) Vital Signs Temp Pulse Pulse Pulse Resp BP Pulse Ox 02/03/25 07:23 36.3 C L 95 H 14 110/70 94 02/03/25 07:00 93 H 02/03/25 03:28 36.5 C 88 14 94/60 L 95 02/02/25 22:51 36.5 C 91 H 18 109/69 95 02/02/25 22:02 92 H O2 Del Method 02/03/25 07:23 Room Air 02/03/25 07:00 02/03/25 03:28 Room Air 02/02/25 22:51 Room Air 02/02/25 22:02 PG Care Time/CCT Total # of Minutes Spent Total Time Spent with Patient: Total time spent is greater than 50% in coordination of care (as documented) at patient's floor/unit and/or counseling patient: Coding Level of Care Code 41248 SUB INP/OBS CARE 2/35MIN Diagnoses Scrotal swelling N50.89 Penile swelling N48.89
--- NOTE | 2025-02-03 10:00 | Hospitalist Progress Note ---
Date of Service February 03, 2025 Assessment & Plan (1) Cellulitis of left leg: Plan Patient is 79-year-old male with PMH HTN, persistent atrial fibrillation anticoagulated on Eliquis, paroxysmal SVT, DM II, chronic anemia, rheumatoid arthritis, leg wounds presented to ER with c/o left leg redness and increased pain x 2 days. Cellulitis with abscess of LLE On 01/15/25 had presented to wound clinic with new hematoma to left leg and had area I&D. 01/15/25 Wound culture was without growth. In ER afebrile, P: 103, R: 20, BP 105/57, 97% on room air WBC: 12.4, lactate: 2.3, Procalcitonin: 0.1 Tib-fib x-ray: No fracture or osteomyelitis noted Blood cultures NGTD In ER given Rocephin, vancomycin, gentle IVF ordered Treated with Zosyn, vancomycin- vancomycin later switched to Daptomycin Per chart review pt with history pseudomonas on prior wound cultures Tylenol, oxycodone prn pain. Has buprenorphine patch prescribed but hasn't started using it yet. CT LE concerning for cellulitis, no evidence of osteomyelitis Wound nurse consult while inpatient Fall precautions General Surgery consulted, appreciate recs -s/p I and D on 01/21 wound cultx obtained in the OR NGTD 01/30 Discussed w/ wound care and surgery - plan to re-eval the wound, for now will hold eliquis 02/02 s/p debridement by surgery at the bedside -> resume eliquis on 02/03 Possible Sepsis Evening of 01/23 pt cold and shivering Infectious workup repeated with blood cultures, lactate, chest XRAY, UA, procal, labs Vitals stable Added Daptomycin to IV Zosyn, Vancomycin discontinued Follow labs, workup and culture- NGTD ID consulted, appreciate recs -continue po levofloxacin for 7- 10 days -follow MRSA nares Atrial fibrillation History persistent A-Fib Paroxysmal SVT Borderline tachybrady syndrome In ER HR low 100's. Denies CP, SOB, palpitations Continue metoprolol succinate, Eliquis per recommendations of surgery on 01.23 to resume 01/23- pt with episode of a fib with RVR, HR in 140s to 150. Trop pending. BP stable, pt given one dose of IV Lopressor 5mg with noted improvement of HR to the one-teens. Continue with qPM Toprol dose increased to 75mg BID. Continue to monitor Now improved, HR controlled Acute on Chronic heart failure with preserved ejection fraction (HFpEF) CXR: Stable moderate cardiomegaly with mild pulmonary vascular congestion 02/02/2024 echo: EF: 55-60%, mild concentric LVH, moderate aortic valve sclerosis without significant stenosis, mild mitral regurgitation Pt with significant pitting edema in lower extremities, scrotum, body -> now resolved back on home oral lasix , monitor BP spironolactone resumed on 01/26, monitor BP and resume as able Monitor Is and Os, daily weights Hypokalemia replete as needed Diabetes mellitus, type II A1c: 8.5 on 08/01/24 Hold home metformin Novolog sliding scale per protocol Diabetic diet current A1c 6.5% COPD (chronic obstructive pulmonary disease) No signs acute exacerbation Continue home inhalers HLD (hyperlipidemia) Continue rosuvastatin Rheumatoid arthritis On Chronic prednisone 5mg daily Continue prednisone Chronic anemia History B12 deficiency Hb. (baseline appears in 's) Continue B12 supplement BPH (benign prostatic hyperplasia) Continue finasteride, tamsulosin DVT Prophylaxis - Eliquis resumed Dispo: telemetry Full Code as per discussion with pt Admission and Anticipated Discharge Date Admission Date: January 17, 2025 Subjective Pt seen in follow up of cellulitis, follows with wound care - referred by wound care to the ER on vanco zosyn on admission, now on Levaquin per ID, s/p I&D w/ gen. surgery for LLE abscess Yesterday debridement w/ surgery at the bedside, resume eliquis today Sitting up in bed in NAD no fever, chills, chest pain, shortness of breath, no abd. pain + edema, including scrotal edema much improved. Surgery and wound care following Review of Systems Review of Systems: All systems reviewed & are unremarkable except as noted in Subjective Physical Exam Physical Exam: General: WDWN elderly male in NAD Head: normocephalic, atraumatic Eyes: conjunctiva non-injected, anicteric ENT: normal inspection external ears, nose Neck: supple Lungs: no respiratory distress, decreased breath sounds, no wheezing/rhonchi CV: irregularly irregular Abd: normal BS, soft, non-tender Ext: RLE: scars noted. LLE: in dressings now (s/p I&D), nontender Neuro: A&O x 3, no focal deficits noted, normal affect Skin: as above in extremities. + scattered ecchymosis to extremities. warm, dry Results & Data Results & Data Vital Signs (Past 12 Hours) Vital Signs Temp Pulse Pulse Pulse Resp BP Pulse Ox 02/03/25 07:23 36.3 C L 95 H 14 110/70 94 02/03/25 07:00 93 H 02/03/25 03:28 36.5 C 88 14 94/60 L 95 02/02/25 22:51 36.5 C 91 H 18 109/69 95 02/02/25 22:02 92 H O2 Del Method 02/03/25 07:23 Room Air 02/03/25 07:00 02/03/25 03:28 Room Air 02/02/25 22:51 Room Air 02/02/25 22:02 Laboratory Results 02/03/25 02/03/25 02/02/25 Range/Units 08:22 05:31 20:16 WBC 9.21 (4.8-10.8) K/ul RBC 2.95 L (4.70-6.10) M/uL Hgb 9.5 L (14.0-18.0) g/dl Hct 29.8 L (42.0-52.0) % MCV 101.0 H (80.0-100.0) fL MCH 32.2 (25.0-34.0) pg MCHC 31.9 L (32.0-36.0) g/dL RDW Std Deviation 60.4 H (36.4-46.3) fL RDW Coeff of Roxanna 16.2 H (11.5-14.5) % Plt Count 296 (130-400) K/uL MPV 10.6 (9.4-12.4) fL Sodium 137 (136-145) mmol/L Potassium 3.8 (3.5-5.1) mmol/L Chloride 100 (98-107) mmol/L Carbon Dioxide 28 (21-32) mmol/L Anion Gap 9 (3-11) BUN 23 (6-23) mg/dl Creatinine 1.23 (0.6-1.4) mg/dl Est Cr Clr Drug Dosing 49.9 ml/min eGFR 58.98 BUN/Creatinine Ratio 18.7 (10-20) Glucose 89 (70-99(Fasting)) mg/dl POC Glucose 103 H 144 H (70-99) mg/dl Calcium 8.9 (8.6-10.3) mg/dl Phosphorus 3.5 (2.5-4.9) mg/dl Magnesium 2.1 (1.7-2.4) mg/dl 02/02/25 02/02/25 Range/Units 17:08 11:49 WBC (4.8-10.8) K/ul RBC (4.70-6.10) M/uL Hgb (14.0-18.0) g/dl Hct (42.0-52.0) % MCV (80.0-100.0) fL MCH (25.0-34.0) pg MCHC (32.0-36.0) g/dL RDW Std Deviation (36.4-46.3) fL RDW Coeff of Roxanna (11.5-14.5) % Plt Count (130-400) K/uL MPV (9.4-12.4) fL Sodium (136-145) mmol/L Potassium (3.5-5.1) mmol/L Chloride (98-107) mmol/L Carbon Dioxide (21-32) mmol/L Anion Gap (3-11) BUN (6-23) mg/dl Creatinine (0.6-1.4) mg/dl Est Cr Clr Drug Dosing ml/min eGFR BUN/Creatinine Ratio (10-20) Glucose (70-99(Fasting)) mg/dl POC Glucose 118 H 102 H (70-99) mg/dl Calcium (8.6-10.3) mg/dl Phosphorus (2.5-4.9) mg/dl Magnesium (1.7-2.4) mg/dl Medications Administered Current Inpatient Medications Acetaminophen (Acetaminophen 325 Mg Tab) 650 mg PO Q4H PRN PRN Reason: Pain or Fever Stop: 02/16/25 17:05 Last Admin: 02/03/25 06:00 Dose: 650 mg Apixaban (Apixaban 5 Mg Tablet) 5 mg PO BID STEPHEN Stop: 02/22/25 18:29 Last Admin: 01/30/25 08:43 Dose: 5 mg Collagenase (Collagenase Oint 30 Gm Tube) 1 appln EXT DAILY [facility] Stop: 03/01/25 13:29 Last Admin: 02/02/25 09:15 Dose: 1 appln Cyanocobalamin (Cyanocobalamin (B-12) 500 Mcg Tablet) 1,000 mcg PO DAILY [facility] Stop: 02/17/25 08:59 Last Admin: 02/03/25 07:55 Dose: 1,000 mcg Dextrose (Dextrose 50% 50 Ml Syringe) 25 - 50 ml IV UD PRN; Protocol PRN Reason: Hypoglycemia Protocol Stop: 02/16/25 17:05 Finasteride (Finasteride 5 Mg Tab) 5 mg PO DAILY [facility] Stop: 02/17/25 08:59 Last Admin: 02/03/25 07:54 Dose: 5 mg Fluticasone/Vilanterol (Fluticasone/Vilanterol 200/25mcg 14 Puffs/Inhaler) 1 puffs INH DAILY STEPHEN Stop: 02/17/25 08:59 Last Admin: 02/03/25 07:55 Dose: 1 puffs Furosemide (Furosemide 20 Mg Tab) 60 mg PO QAM STEPHEN Stop: 02/23/25 08:59 Last Admin: 02/03/25 07:53 Dose: 60 mg Gabapentin (Gabapentin 300 Mg Cap) 300 mg PO BID [facility] Stop: 02/16/25 20:59 Last Admin: 02/03/25 07:54 Dose: 300 mg Glucagon (Glucagon For Inj 1 Mg Vial) 1 mg SQ UD PRN; Protocol PRN Reason: Hypoglycemia Protocol Stop: 02/16/25 17:05 Glucose (Glucose 40% Gel 15 Gm Tube) 15 - 30 gm PO UD PRN; Protocol PRN Reason: Hypoglycemia Protocol Stop: 02/16/25 17:05 Glucose (Glucose 10 Tab/Tube) 4 - 8 tab PO UD PRN; Protocol PRN Reason: Hypoglycemia Protocol Stop: 02/16/25 17:05 Insulin Aspart (Insulin Aspart Per Unit Charge) 0 units SC ACHS [facility] Stop: 02/16/25 17:05 Last Admin: 02/03/25 09:49 Dose: 2 units Levofloxacin (Levofloxacin 750 Mg Tab) 750 mg PO DAILY@1100 STEPHEN; Protocol Stop: 02/03/25 16:29 Last Admin: 02/02/25 11:20 Dose: 750 mg Metoprolol Succinate (Metoprolol Succ 25mg Ext Rel Tab) 75 mg PO BID STEPHEN Stop: 02/22/25 20:59 Last Admin: 02/03/25 07:54 Dose: 75 mg Miscellaneous (Carbohydrates For Hypoglycemia ) 15 - 30 gm PO UD PRN PRN Reason: Hypoglycemia Protocol Stop: 02/16/25 17:05 Ondansetron HCl (Ondansetron Inj 2 Mg/Ml 2 Ml Vial) 4 mg IV Q6H PRN PRN Reason: Nausea Stop: 02/16/25 17:05 Pantoprazole Sodium (Pantoprazole 40 Mg Tab) 40 mg PO QAM STEPHEN Stop: 02/17/25 08:59 Last Admin: 02/03/25 07:56 Dose: 40 mg Polyethylene Glycol (Polyethylene (Miralax) 17 Gm Pack) 17 gm PO DAILY PRN PRN Reason: Constipation Stop: 02/16/25 17:05 Potassium Chloride (Potassium Chloride Crtab 20 Meq Tabcr) 20 meq PO BID STEPHEN Stop: 02/27/25 20:59 Last Admin: 02/03/25 07:54 Dose: 20 meq Prednisone (Prednisone 5 Mg Tab) 5 mg PO DAILY [facility]PHEN Stop: 02/17/25 08:59 Last Admin: 02/03/25 07:54 Dose: 5 mg Rosuvastatin Calcium (Rosuvastatin Calcium 20 Mg Tab) 20 mg PO QAM [facility] Stop: 02/17/25 08:59 Last Admin: 01/23/25 08:06 Dose: 20 mg Spironolactone (Spironolactone 25 Mg Tab) 25 mg PO QAM [facility] Stop: 02/26/25 08:59 Last Admin: 02/03/25 07:53 Dose: 25 mg Tamsulosin HCl (Tamsulosin Hcl 0.4 Mg Cap) 0.4 mg PO DAILY STEPHEN Stop: 02/17/25 08:59 Last Admin: 02/03/25 07:53 Dose: 0.4 mg Vitamin D (Cholecalciferol 25 Mcg (1000 Units) Tab) 50 mcg PO DAILY STEPHEN Stop: 02/17/25 08:59 Last Admin: 02/03/25 07:53 Dose: 50 mcg
[2025-02-04 06:11] LABS: Hematocrit (blood only) 28.6 % (42.0-52.0); Hemoglobin 9.2 g/dl (14.0-18.0); Mean Corpuscular Hemoglobin 32.4 pg (25.0-34.0); Mean Corpuscular Hgb Conc 32.2 g/dL (32.0-36.0); Mean Corpuscular Volume 100.7 fL (80.0-100.0); Mean Platelet Volume 10.8 fL (9.4-12.4); Platelet Count 282 K/uL (130-400); RDW Standard Deviation 59.5 fL (36.4-46.3); Red Blood Count 2.84 M/uL (4.70-6.10); White Blood Count 9.19 K/ul (4.8-10.8)
[2025-02-04 06:33] LABS: Calcium 9.1 mg/dl (8.6-10.3); Creatinine Clr Calc Pharmacy 48.7 ml/min; Magnesium 2.2 mg/dl (1.7-2.4); Phosphorus 3.4 mg/dl (2.5-4.9); Potassium 3.9 mmol/L (3.5-5.1)
[2025-02-04 07:47] VITALS: RESP 18
[2025-02-04 11:10] VITALS: TEMP 97.5; O2SAT 98
--- NOTE | 2025-02-04 15:32 | Discharge Summary ---
Discharge Summary Date of Service February 04, 2025 Principal Dx & Hospital Course #1 = Principal Diagnosis (1) Cellulitis of left lower extremity: (2) Wound infection: (3) COPD (chronic obstructive pulmonary disease): (4) Atrial fibrillation with rapid ventricular response: (5) Diabetes mellitus, type II: (6) Acute on chronic heart failure with preserved ejection fraction (HFpEF): Plan Patient 79-year-old gentleman who had been followed by wound clinic for hematoma of the left leg. He had outpatient I&D. However, continued to appear cellulitic and was sent to the emergency room for further care. Patient was admitted to hospital. Placed on antibiotics. Surgical consultation was obtained. Patient underwent incision and drainage of abscess of the lower extremity on 01/21/2025. Postprocedure continued with wound care infectious disease consultation was obtained. Recommend treating with levofloxacin for 7 to 10 days. The course of the rest of his hospitalization patient did struggle with some bursts of his atrial fibrillation with RVR. His metoprolol dosing was increased and his rates became better controlled. He also suffered some decompensation heart failure. He was treated with additional IV diuretics. His significant edema and scrotal swelling resolved. He was seen by therapies and started to become more ambulatory. Case management was involved in his care. His laboratory studies were monitored and electrolytes replaced as needed. Initially evaluated for possible inpatient rehabilitation at [facility]. This was declined by his and insurance provider. Patient was up and ambulating with a walker fairly well. Patient declined going to penitentiary facility. Patient felt confident that he could be managed at home. His son was confident that he be able to take care of him at his home as well and his home health services were arranged for the patient to help with wound care at home. Patient discharged to complete another couple days of antibiotics for full 10-day course. Adjustments made to his beta-katie as mentioned. Follow-up with his outpatient providers. Spoke with patient's son at the time of discharge. Understanding the need for outpatient care and follow-up. Agreeable to plans for discharge today. Notes For Next Care Provider Will continue ongoing management of diabetes, heart failure and atrial fibrillat ion. Medication Changes From Visit Metoprolol dose increased to 75 twice daily Potassium added Levofloxacin for leg cellulitis for 3 more days Admission HPI Per Admitting Provider Patient is 79-year-old male with PMH HTN, persistent atrial fibrillation anticoagulated on Eliquis, paroxysmal SVT, DM II, chronic anemia, rheumatoid arthritis, leg wounds presented to ER with c/o left leg redness and pain. Per outpatient chart review patient is following with wound clinic for chronic leg wounds. On 01/15/25 had presented to wound clinic with new hematoma to left leg and had area I&D. 01/15/25 Wound culture was without growth. Presented today to wound clinic and found to have concerns of cellulitis to LLE and referred to ER for further evaluation. Patient reports that yesterday he started getting increased pain to left leg and noticed some redness. He thinks having some drainage from area. Per chart review patient with history wound pseudomonas in past. Denies fever/chills, diaphoresis, N/V/D/C, HERNANDEZ, dizziness, syncope, vision changes, neck pain, CP, SOB, orthopnea, palpitations, cough, sore throat, rhinorrhea, abdominal pain, extremity edema, rashes, urinary symptoms. Admission Exam Per Admitting Provider See H&P Discharge Exam Constitutional: Alert HEENT: Mucous membranes moist. Lungs: Clear to auscultation, decreased, no wheezes rales or rhonchi CV: S1-S2, irregular Abdomen: Soft, nontender, nondistended Extremities: Edema significantly improved in the lower extremity and scrotum Neuro: No focal deficits Psych: Cooperative, normal mood Updated Medication List Medication Instructions Recorded Confirmed Type finasteride 5 mg tablet 5 mg PO DAILY 04/25/20 01/17/25 History gabapentin 300 mg capsule 300 mg PO BID 04/25/20 01/17/25 History prednisone 5 mg tablet 5 mg PO DAILY 04/25/20 01/17/25 History spironolactone 25 mg tablet 25 mg PO QAM 04/25/20 01/17/25 History cholecalciferol (vitamin D3) 25 50 mcg PO DAILY 07/30/20 01/17/25 History mcg (1,000 unit) tablet (Vitamin D3) apixaban 5 mg tablet 5 mg PO BID 12/31/22 01/17/25 History pantoprazole 40 mg tablet,delayed 40 mg PO QAM 12/31/22 01/17/25 History release cyanocobalamin (vitamin B-12) 1,000 mcg PO DAILY 01/31/24 01/17/25 History 1,000 mcg tablet (Vitamin B-12) fluticasone 500 mcg-salmeterol 50 1 inh inhalation BID 01/31/24 01/17/25 History mcg/dose blistr powdr for inhalation (Wixela Inhub) rosuvastatin 20 mg tablet 20 mg PO QAM 03/25/24 01/17/25 History furosemide 40 mg tablet 60 mg (1.5 x 40 mg) PO QAM #45 tabs 08/04/24 01/17/25 Rx metformin 500 mg tablet,extended 500 mg PO DAILY #30 tabs 08/04/24 01/17/25 Rx release 24 hr tamsulosin 0.4 mg capsule (Flomax) 0.4 mg PO DAILY 10/23/24 01/17/25 History acetaminophen 500 mg tablet 500 mg PO TID PRN Pain 01/17/25 01/17/25 History buprenorphine 5 mcg/hour weekly 1 patch transdermal Q7D 01/17/25 01/17/25 History transdermal patch food supplemt, lactose-reduced 1 ea PO BID 01/17/25 01/17/25 History (Ensure oral liquid) oxycodone 5 mg tablet 5 mg PO DAILY PRN pain 01/17/25 01/17/25 History skin cleanser comb no.31 1 spray topical DAILY 01/17/25 01/17/25 History (Skintegrity Wound Cleanser topical spray) collagenase clostridium histo. 250 1 applic EXT DAILY #90 grams 02/04/25 Rx unit/gram topical ointment (Santyl) levofloxacin 750 mg tablet 750 mg PO DAILY 5 days #3 tabs 02/04/25 Rx metoprolol succinate 50 mg 75 mg (1.5 x 50 mg) PO BID #90 tabs 02/04/25 Rx tablet,extended release 24 hr potassium chloride 20 mEq 20 meq PO BID #60 tabs 02/04/25 Rx tablet,extended release(part/cryst) Hospital Stay Data Consultations 01/17/25 13:18 ED Decision to Admit Stat 01/18/25 17:22 Consult General Surgery Routine 01/25/25 13:19 Consult Infectious Diseases Routine 01/28/25 16:26 Consult Urology Routine 02/03/25 08:00 Consult Urology Routine Procedures Performed Operation Date: 01/21/25 09:50 Actual Procedures p Left Leg Hematoma Incision and Drainage(Left) - Tony Hui, Diagnostic Imagining Performed 01/17/25 14:10 CT leg [CT tib/fib LT w con] Urgent 01/23/25 20:07 CT angio chest PE protocol Stat 01/28/25 20:03 US scrotum/testicle Stat Reviewed imaging, laboratory and diagnostic studies. Pertinent findings as below. WBCs 9.1 Hemoglobin 9.2 Platelets of 282 Electrolytes stable Creatinine 1.23 Magnesium 2.2 Scrotal ultrasound showed bilateral hydroceles CTA of the chest showed no significant pulmonary embolism ultrasound lower extremity showed evidence of cellulitis but no osteomyelitis Blood cultures no growth to date Leg wound culture no growth from sample obtained on 01/21/2025 Pending Results Patient Have Any Pending Studies at Discharge: No Discharge Instructions Given to Patient (Per Discharging Provider) Home health has been coordinated to help care for your wounds Follow-up with your specialists as coordinated Home Health Attestation I certify that this patient is under my care and that I, or a physicians library services assistant working with me, had a face to-face encounter that meets the home health [id number] encounter requirements with this patient. The encounter with the patient was in whole, or in part, for the following medical condition, which is the primary reason for home health care (list medical condition): Cellulitis I certify that, based on my findings, the following services are medically necessary home health services: My clinical findings support the need for the above services because: OT Assess ADL Status and Restore Function w ADLs Prevention of Pressure Areas Skilled Nsg Assessment Skilled Nsg to Assess, Perform and Teach Wound Care Teach on Disease Management and Interventions Further, I certify that my clinical findings support that this patient is homebound (i.e. absences from home require considerable and taxing effort and are for medical reasons or sabianism services or infrequently or of short duration when for other reasons) because: Assistance of 1 Person for Ambulation/Activities Supportive Aid - Walker Transportation Assistance/Unable to Leave Home Unassisted Certification for Home Health Services: Based on the above findings, I certify that this patient is confined to the home and needs intermittent penitentiary care, physical therapy and/or speech therapy or continues to need occupational therapy. The patient is under my care, and I have initiated the establishment of the plan of care. This patient will be followed by a physician who will periodically review the plan of care. Total Time Total Time Spent Total Time Spent (In Minutes): 45
[2025-02-04] MEDS: levoFLOXacin 750 MG TAB PO ONE (16:07)
[2025-02-04 16:17] VITALS: BP 111/75; PULSE 94
--- NOTE | 2025-02-05 11:47 | Coding Query ---
SEPSIS To promote full compliance with coding requirements relating to patient care, physician participation is requested in all cases of mixing house operator uncertainty. Please assist us with the question(s) below: In responding to this query, please exercise your independent professional judgement. The fact that a question is asked does not imply that any particular answer is desired or expected. We appreciate your clarification on this issue. Throughout the medical record, you have clearly documented a localized infection and your patient has clinical evidence of a generalized sepsis or severe sepsis. The term urosepsis is a nonspecific entity and is coded as an UTI. If the patient has sepsis, severe sepsis, from an urinary source or some other source, please clarify in your response below. The medical record reflects the following clinical findings: (With dates as appropriate) (Body temperature of >38.3 C(101 F) or <36 C(96.8F), pulse >90/minute, respirations >20/minute, WBC count >12,000 or <4,000, altered mental status, significant edema or positive fluid balance, hyperglycemia without diabetes, hypotension, metabolic acidosis (elev. lactate level, anion gap or reduced blood pH), shock, positive blood culture (enter organism) ____ ()Bacteremia (Nonspecific laboratory finding of bacteria in the blood) Specify Organism () Present on Admission () Not present on admission () Unable to clinically determine () Septicemia (Systemic disease associated with the presence of pathogenic microorganisms in the blood): Specify Organism () Present on Admission () Not present on admission () Unable to clinically determine () Sepsis Specify Organism Specify Associated Condition/Diagnosis () Present on Admission () Not present on admission () Unable to clinically determine () Severe Sepsis (Sepsis associated with acute organ dysfunction) Specify Organism Specify Associated Condition/Diagnosis () Present on Admission () Not present on admission () Unable to clinically determine () Septic Shock (Severe sepsis with acute circulatory failure, unexplained by other causes) () Present on Admission () Not present on admission () Unable to clinically determine () Other, patient has: localized leg abcess without sepsis MTDD
== END 2025-02-04 17:08 | disposition home health service (06) | DRG 570 ==
LOC: ED 11:09 → 2N 13:52 → SUATTDRO 13:52 → 2N 16:27
DX: I48.19 Other persistent atrial fibrillation; Z87.891 Personal history of nicotine dependence; L02.416 Cutaneous abscess of left lower limb; Z79.01 Long term (current) use of anticoagulants; L08.9 Local infection of the skin and subcutaneous tissue, unspecified; N50.89 Other specified disorders of the male genital organs; I51.7 Cardiomegaly; D64.9 Anemia, unspecified; E87.6 Hypokalemia; X58.XXXA Exposure to other specified factors, initial encounter; E11.9 Type 2 diabetes mellitus without complications; Z79.52 Long term (current) use of systemic steroids; N48.89 Other specified disorders of penis; Z79.84 Long term (current) use of oral hypoglycemic drugs; Z79.899 Other long term (current) drug therapy; N40.0 Benign prostatic hyperplasia without lower urinary tract symptoms; Z79.51 Long term (current) use of inhaled steroids; E78.5 Hyperlipidemia, unspecified; L03.116 Cellulitis of left lower limb; J44.9 Chronic obstructive pulmonary disease, unspecified; N43.3 Hydrocele, unspecified; I47.10 Supraventricular tachycardia, unspecified; I11.0 Hypertensive heart disease with heart failure; I50.33 Acute on chronic diastolic (congestive) heart failure; E53.8 Deficiency of other specified B group vitamins; M06.9 Rheumatoid arthritis, unspecified; S80.822A Blister (nonthermal), left lower leg, initial encounter; F17.220 Nicotine dependence, chewing tobacco, uncomplicated